=== PATIENT | female | born 1950 | race Caucasian/White ===

== ENCOUNTER 2019-02-02 09:25 | Outpatient (CLI) | payer MEDICARE, SELFPAY ==
--- NOTE | 2019-02-02 | ECHO_ITS ---
Patient Info Name: Hoa Balbuena Age: 69 years : 1950 Gender: Female Ht: 66 in Wt: 272 lbs BSA: 2.46 m2 HR: 86 bpm BP: 127 / 86 mmHg Heart Rhythm: Sinus Rhythm Technical Quality: Fair Exam Date: 02/02/2019 9:55 AM Exam Location: [facility] Pulmonary Patient Status: Outpatient Admit Date: 02/02/2019 Staff Ordering Physician: Arvin Abraham MD Chief Engineer Waterworks: Ellie Garcia RDCS Attending Provider: Arvin Abraham MD Referring Physician: Leigh BROOKS; Exam Type: CA echo doppler color flow Study Info Indications C50.412 - Malignant neoplasm of upper-outer quadrant of left female breast Complete two-dimensional, color flow and Doppler transthoracic echocardiogram is performed. Summary 1. Left ventricular systolic function is normal, estimated at 65-70%. 2. The left ventricular diastolic function is grade I diastolic dysfunction. 3. There is mild aortic valve sclerosis. 4. The mitral valve has normal leaflets. Left Ventricle Left ventricular chamber dimension is normal. Left ventricular systolic function is normal, estimated at 65-70%. The left ventricular diastolic function is grade I diastolic dysfunction. Right Ventricle Right ventricular chamber dimension is normal. Left Atria Left atrial chamber dimension is normal. Right Atria Right atrial chamber dimension is normal. Aortic Valve The aortic valve is trileaflet. There is mild aortic valve sclerosis. Pulmonic Valve The pulmonic valve is not well visualized. Mitral Valve The mitral valve has normal leaflets. Tricuspid Valve The tricuspid valve leaflets are normal. Pericardium/Pleural The pericardium appears normal. Aorta The aortic root size at the sinus of Valsalva is normal. Left Ventricular Outflow Tract Name Value Normal LVOT 2D LVOT Diameter 2.0 cm LVOT Doppler LVOT Peak Gradient 4 mmHg LVOT Mean Gradient 2 mmHg LVOT VTI 18 cm LVOT VTI/AV VTI Ratio 0.7 LVOT Stroke Volume 56 ml Pulmonic Valve Name Value Normal RVOT Doppler RVOT Peak Gradient 3 mmHg PV Doppler PV Peak Gradient 6 mmHg Mitral Valve Name Value Normal MV Doppler MV Decel [place] 189 cm/s2 MV PHT 69 ms MV Area (PHT) 3.2 cm2 4.0-5.0 MV Diastolic Function
== END 2019-02-02 09:26 | disposition home or self-care (01) ==
LOC: ANHCARD 09:29
PROVIDERS: PCP Family Medicine; Visit Provider Internal Medicine Hematology & Oncology
DX: C50.412 Malignant neoplasm of upper-outer quadrant of left female breast (principal); Z17.0 Estrogen receptor positive status [ER+]; I35.8 Other nonrheumatic aortic valve disorders
CPT/HCPCS: 93306

== ENCOUNTER 2019-04-12 13:41 | Inpatient (IN) | payer MEDICARE, SELFPAY ==
--- NOTE | ~2019-04-12 | NM_ITS ---
EXAMINATION: NM lung vent and perfusion DATE: 04/13/2019 13:46 INDICATION: Shortness of breath. TECHNIQUE: The patient breathed 15.1 mCi xenon-133 for ventilation images. 5.5 mCi Tc-99m MAA was adm inistered intravenously for perfusion images. Scintigraphic images of the chest were obtained. COMPARISON: Chest 2 views 04/12/2019 FINDINGS: The single breath ventilation image demonstrates suboptimal hyndzy-[id number]-dkpzy ratio. Ventilation washou t images show retention in right midlung zone. Perfusion images show no moderate-sized or large defe cts. ] IMPRESSION: 1. Low probability for pulmonary embolism. Reviewed, dictated and finalized at location A. UM CLEANER MECHANIC
--- NOTE | ~2019-04-12 | CT_ITS ---
EXAMINATION: CT abdomen pelvis wo con DATE: 04/12/2019 15:15 INDICATION: Diarrhea. TECHNIQUE: Computed tomography (CT) of the abdomen and pelvis was performed without intravenous contr ast. Automated exposure control and iterative reconstruction technique were employed. The dose-length product was 1346.30 mGy-cm. COMPARISON: CT abdomen 10/20/2018 FINDINGS: The visualized portions of the lung bases demonstrate mild atelectasis. No pleural effusion . The heart size is normal. There are coronary artery calcifications. No pericardial effusion. The li lyndon and spleen are normal. There are changes of cholecystectomy. The pancreas and adrenal glands are normal. There is cortical thinning of the kidneys. There are no dilated loops of bowel. The appendix is normal. There are no pathologically enlarged lymph nodes. There is no free intraperitoneal fluid. There is a periumbilical hernia containing fat. There is moderate lumbar spondylosis. There are bridg ing endplate osteophytes at multiple levels in the thoracic spine, consistent with diffuse idiopathic skeletal hyperostosis (DISH). There is moderate right hip osteoarthritis and severe left hip osteoar thritis. IMPRESSION: 1. Periumbilical hernia containing fat. Reviewed, dictated and finalized at location A. PT READER
--- NOTE | ~2019-04-12 | US_ITS ---
EXAMINATION: US venous doppler LE EXAM DATE: 04/13/2019 14:37 INDICATION: Bilateral leg swelling. TECHNIQUE: Multiple grayscale, color flow and Doppler images of the lower extremity deep venous syste ms bilaterally were obtained and reviewed. Comparison is made to prior examination from 11/02/2013. FINDINGS: Right side: The right common femoral, femoral and profunda veins demonstrate normal color flow, respi ratory variation, augmentation and compressibility. Compressibility, color flow confirmed within the right popliteal, posterior tibial, peroneal, and greater saphenous veins. Left side: The left common femoral, femoral and profunda veins demonstrate normal color flow, respira tory variation, augmentation and compressibility. Compressibility, color flow confirmed within the l eft popliteal, posterior tibial, peroneal, and greater saphenous veins. IMPRESSION: 1. No lower extremity deep venous thrombosis bilaterally. Reviewed, dictated and finalized at location B. MAKER
--- NOTE | ~2019-04-12 | XR_ITS ---
EXAMINATION: XR chest 2V DATE: 04/12/2019 15:19 INDICATION: Shortness of breath. Nausea. TECHNIQUE: Frontal and lateral views of the chest were obtained. COMPARISON: Chest single view 02/12/2019, CT abdomen and pelvis 04/12/2019 FINDINGS: The chest demonstrates clear lungs without pneumonia, pleural effusion, or pneumothorax. Th e heart size is normal. There are multiple old healed left rib fractures. There is a right internal j ugular port with tip at superior cavoatrial junction. IMPRESSION: 1. No acute cardiopulmonary disease. Reviewed, dictated and finalized at location A. HETIC SOIL BLOCKS PULPER
[2019-04-12 13:43] VITALS: BP 127/94; PULSE 95; RESP 15; TEMP 36.5; O2SAT 99
--- NOTE | 2019-04-12 13:54 | ECG_ITS ---
Measurements Intervals [place] Rate: 96 P: 23 ME: 167 QRS: -11 QRSD: 113 T: 85 QT: 387 QTc: 489 Interpretive Statements SINUS RHYTHM INTRAVENTRICULAR CONDUCTION DELAY EARLY PRECORDIAL R/S TRANSITION INFERIOR INFARCT, AGE INDETERMINATE ST-T WAVE ABNORMALITY IN ANTEROLAT/LAT LEADS- CONSIDER ISCHEMIA BASELINE ARTIFACT- I, II, III, AVR, AVL, AVF ABNORMAL ECG Electronically Signed On 04-12-2019 14:03:39 REGISTERED PRIVATE DUTY NURSE by Gadiel Marin D.O.
--- NOTE | 2019-04-12 13:57 | ED.NAVMDI ---
HPI - Nausea/Vomiting/Diarrhea General Chief complaint: Nausea/Vomiting/Diarrhea Stated complaint: n/v/d Time Seen by Provider: 04/12/19 13:52 Source: patient and RN notes reviewed Mode of arrival: EMS Limitations: no limitations History of Present Illness HPI Narrative: Pt is a 69 y/o female with a Hx of breast cancer, who presents to the ED via EMS from [facility] with c/o nausea, vomiting, and diarrhea starting yesterday. She notes that she is currently 3-4 weeks into chemotherapy for her breast cancer. Pt states that she has recently had generalized weakness and SOB. She notes that she then began having nausea, vomiting, and diarrhea yesterday. Pt states that she has been unable to keep anything down due to her symptoms. She denies any ABD pain, numbness/tingling, or fever. MD elicited complaint: nausea, vomiting and diarrhea Onset (ago): day(s) (1) Associated nausea: Yes Associated abdominal pain: No Context: other (chemotherapy) Associated symptoms: shortness of breath, weakness (generalized) and other (decreased intake) Related Data Home Medications Medication Instructions Recorded Confirmed celecoxib [Celebrex] 200 mg PO DAILY PRN 04/12/19 04/12/19 diphenoxylate-atropine [Lomotil] 1 tablet PO TID PRN 04/12/19 04/12/19 donepezil 10 mg PO HS 04/12/19 04/12/19 indapamide 1.25 mg PO DAILY 04/12/19 04/12/19 levothyroxine 224 mcg PO DAILY 04/12/19 04/12/19 ondansetron HCl 4 mg PO TID PRN 04/12/19 04/12/19 Allergies Allergy/AdvReac Type Severity Reaction Status Date / Time adhesive tape Allergy Intermediate BLISTERS Verified 03/29/19 15:26 tetracycline Allergy Intermediate NAUSEATED Verified 03/29/19 15:26 codeine Allergy Mild Rash Verified 03/29/19 15:26 amoxicillin Allergy Unknown Rash Verified 03/29/19 15:26 furosemide Allergy Unknown Rash Verified 03/29/19 15:26 Iodinated Contrast Media Allergy Unknown Anaphylaxis Verified 03/29/19 15:26 ioversol Allergy Unknown Rash Verified 03/29/19 15:26 methotrexate Allergy Unknown Rash Verified 03/29/19 15:26 Penicillins Allergy Unknown Rash Verified 03/29/19 15:26 Review of Systems Review of Systems: Narrative: CONSTITUTIONAL: Denies fever, chills, or sweats. Reports generalized weakness and decreased intake. CARDIOVASCULAR: Denies chest pain, palpitations, or edema. RESPIRATORY: Denies cough. Reports dyspnea. GASTROINTESTINAL: Denies abdominal pain. Reports nausea, vomiting, and diarrhea. NEUROLOGIC: Denies headache or numbness/tingling. 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 Shingles Stage 3 chronic kidney disease Type 2 diabetes mellitus with hyperglycemia Unspecified systolic (congestive) heart failure UTI (urinary tract infection) Surgical History Surgical History History of cataract surgery rt lens removed History of hysterectomy History of kidney removal History of renal stent rt kidney Hx of appendectomy Hx of cardiac catheterization Hx of cholecystectomy Hx of cystoscopy Hx of lithotripsy Hx of tubal ligation Social History Social History Smoking status: Never smoker Second hand tobacco smoke exposure: No Alcohol intake: never Substance use: never Gender identity (if verbalized by the patient): Female Spiritual care concerns: No Agr
[2019-04-12 14:08] LABS: Basophils Absolute Auto 0.1 K/mm3 (0.0-0.1); Basophils Percent Auto 0.7 % (0.2-1.2); Eosinophils Percent Auto 0.2 % (0-4.4); Hematocrit 35.4 % (37.0-47.0); Hemoglobin 11.9 g/dL (12.0-15.0); Immature Granulocyte Absolute 0.39 K/mm3 (0.00-0.031); Immature Granulocyte Percent A 3.2 % (0-0.5); Lymphocytes Absolute Auto 1.15 K/mm3 (0.9-3.2); Lymphocytes Percent Auto 9.4 % (18.3-44.2); Mean Corpuscular HGB Conc 33.6 g/dl (32-36); Mean Corpuscular Hemoglobin 29.1 pg (26-34); Mean Corpuscular Volume 86.6 fl (80-100); Monocytes Percent Auto 7.9 % (2.6-8.5); Neutrophils Absolute Auto 9.6 K/mm3 (1.3-6.7); Neutrophils Percent Auto 78.6 % (45.5-73.1); Platelet Count Result 288 k/mm3 (150-375); Red Blood Count 4.09 M/mm3 (4.2-5.4); Red Cell Distribution Width 16.8 % (11.5-14.5); White Blood Count 12.2 K/mm3 (4.5-10.0)
[2019-04-12] MEDS: SODIUM CHLORIDE 0.9% IV 1,000 ML 999 ML IV CONT ×2 (14:14→15:52)
[2019-04-12 14:32] LABS: Alanine Aminotransferase 20 U/L (4-35); Alkaline Phosphatase 104 U/L (38-126); Aspartate Amino Transferase 20 U/L (14-36); Bilirubin,Total 0.3 mg/dL (0.2-1.3); Blood Urea Nitrogen 90 mg/dL (7-17); Calcium 8.7 mg/dL (8.4-10.2); Carbon Dioxide 12 mmol/L (22-30); Chloride 95 mmol/L (98-107); Estimated Glomerular Filt Rate 7; Glucose 133 mg/dL (65-105); Lipase 184 U/L (23-300); Potassium 2.3 mmol/L (3.4-5.0); Sodium 132 mmol/L (137-145)
[2019-04-12 14:47] LABS: Add Urine Microscopic? YES; Amorphous Sediment Urine Moderate; Appearance Urine Turbid (Clear); Bacteria Urine 3+ /hpf; Bilirubin Urine Negative (Negative); Blood Urine 3+ (Negative); Color Urine Yellow (Yellow); Glucose Urine UA 1+ mg/dL (Negative); Hyaline Casts Urine 20-29 /lpf; Ketones Urine Negative (Negative); Leukocyte Esterase Ur Trace LEU/UL (Negative); Mucus Urine Few /lpf; Nitrate Urine Negative (Negative); Protein Urine 3+ mg/dL (Negative); RBC Urine >75 /hpf (0-2); Specific Grav Ur 1.017 (1.001-1.035); Urobilinogen Urine Negative mg/dL (<2.0); WBC Urine >75 /hpf
[2019-04-12 14:59] LABS: INR 1.1; Prothrombin Time 13.8 Seconds (11.1-14.7)
[2019-04-12 15:00] LABS: Partial Thromboplastin Time 24.4 SECONDS (22.3-36.8)
[2019-04-12 15:06] LABS: Troponin I 0.015 ng/mL (0.000-0.034)
[2019-04-12 15:24] LABS: NT Pro B Type Natriuretic Pept 157 PG/ML (5-100)
[2019-04-12 15:27] LABS: Magnesium 1.3 mg/dL (1.6-2.3)
[2019-04-12 15:39] VITALS: BP 78/52; PULSE 89; RESP 13; O2SAT 98
[2019-04-12] MEDS: METOCLOPRAMIDE HCL INJ 10 MG/2 ML VIAL IV PUSH (15:54)
--- NOTE | 2019-04-12 16:08 | PC.NURSE ---
edp made aware of pts pressure, gave vorb to infuse ns 1000 mls/hr (as opposed to 30mls/hr)
[2019-04-12 16:47] LABS: Lactic Acid Reflex 1.7 mmol/L (0.7-2.1)
[2019-04-12 17:02] VITALS: BP 93/60; PULSE 85; RESP 17; O2SAT 100
[2019-04-12] MEDS: NOREPINEPHRINE 8 MG/D5W 250 ML 8 MG/250 ML BAG 9.4 MG IV CONT ×2 (17:30→22:10)
[2019-04-12 18:43] VITALS: BP 94/53; PULSE 76; RESP 15; O2SAT 100
--- NOTE | 2019-04-12 18:51 | ADMGEN ---
This patient, Hoa Balbuena, was admitted to Intensive Care Unit-9 at 1821. Patient/family oriented to hospital policies and general routines including ID bracelet, bed and alarms, visiting hours, pain management, procedures, bathroom and other care routines, personal items, smoking policy, room service/diet, and visiting hours. Valuables list has been completed. Information on how to activate the Rapid Response Team has been discussed. Patient/Family are encouraged to report perceived risks to care and to ask questions if they do not understand what they are told or what they should do.
[2019-04-12 18:53] VITALS: BMI 38.0
--- NOTE | 2019-04-12 19:00 | PM.IMHP ---
H&P: HPI History of Present Illness Chief complaint: Nausea, vomiting, diarrhea, generalized weakness. Narrative: Hoa Balbuena is a 69 year old female currently being treated for breast cancer with history of obstructive sleep apnea on CPAP, COPD, DVT on long-term anticoagulation, rheumatoid arthritis, diabetes, hypothyroidism, bullous pemphigoid, type 2 diabetes mellitus, and several other comorbidities who presented to the emergency department earlier this afternoon via EMS from [facility] for evaluation of nausea, vomiting, diarrhea, and generalized weakness. She was diagnosed with left-sided breast cancer several months ago and has been undergoing neoadjuvant chemotherapy prior to planned complete mastectomy per Dr. Abraham. Her last chemotherapy treatment was a couple of weeks ago, and she is due for another treatment in the coming week. She typically feels ?punky? for a couple of days after chemotherapy. Unfortunately, she has suffered from nausea, vomiting, and diarrhea for the last several days, and she notes that similar symptoms are going around the facility. Her appetite has been poor due to the extreme nausea. She has also had chills but denies fever and sweats. She also has been having shortness of breath with minimal exertion, and rare cough. She has not noticed a change in urine output and denies dysuria, urgency, and frequency. Since admission to the hospital, she has not had any further episodes of vomiting or diarrhea. No headache, neck ache, sinus congestion, rhinorrhea, otalgia, or odynophagia. She denies chest pain, pleuritic pain, and palpitations. No lightheadedness or dizziness. Review of Systems Review of Systems: All systems reviewed & are unremarkable except as noted in HPI and below [facility] Past Medical History Medical History (Updated 04/12/19 @ 21:37 by Radha Ruvalcaba PA-C) Anemia, chronic disease Anxiety Asthma Atrial fibrillation with controlled ventricular response Bronchitis Bullous pemphigoid Cancer of left breast Colon polyps COPD with emphysema Diastolic congestive heart failure Echocardiogram in December 2018 showed normal left ventricular size, moderate concentric left ventricular hypertrophy with impaired diastolic relaxation grade 1 and ejection fraction of 65%. 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 Social History Social History (Updated 04/12/19 @ 21:00 by Radha Ruvalcaba PA-C) Social History: The patient is never and has no children. 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 She lives at [facility], and has been there for a couple of months since she started chemotherapy. Her aestqa-xb-duf, Sofia, is her surrogate decision maker. She wishes to be a full code. Spiritual care concerns: No Agree to blood products: Yes Meds Home Medications and Allergies Home Medications Medication Instructions Recorded Confirmed Type atorvastatin 10 mg tablet 10 mg PO DAILY #30 tablet 03/29/19 04/12/19 Rx nitroglycerin 0.4 mg sublingual 0.4 mg SUBLINGUAL Q5M PRN #25
[2019-04-12 20:00] VITALS: BP 94/62; PULSE 86; RESP 16; TEMP 37.1; O2SAT 100
[2019-04-12] MEDS: ENOXAPARIN 100 MG/ML SYRINGE SUB-Q (20:51)
[2019-04-12 21:46] LABS: Lactic Acid 0.9 mmol/L (0.7-2.1)
[2019-04-12 21:47] LABS: Blood Urea Nitrogen 85 mg/dL (7-17); Calcium 8.1 mg/dL (8.4-10.2); Carbon Dioxide 10 mmol/L (22-30); Chloride 97 mmol/L (98-107); Creatine Kinase 93 U/L (30-135); Estimated CRCL calculation 12 ml/min; Estimated Glomerular Filt Rate 9; Glucose 156 mg/dL (65-105); Magnesium 1.1 mg/dL (1.6-2.3); Phosphorus 4.2 mg/dL (2.5-4.5); Potassium 2.5 mmol/L (3.4-5.0); Sodium 129 mmol/L (137-145)
[2019-04-12 21:53] VITALS: BP 94/62; PULSE 80; RESP 16; O2SAT 100
[2019-04-12] MEDS: MAGNESIUM SULF 1 GM/D5W 100 ML 1 GM/100 ML BAG IVPB (22:29)
[2019-04-12] MEDS: SODIUM BICARBONATE 8.4% 150 MEQ in DEXTROSE 5% 1,000 ML 950 ML 100 MEQ IV CONT (22:33)
[2019-04-12 23:01] LABS: Hemoglobin A1C 7.4 % (<5.7)
[2019-04-12] MEDS: MAGNESIUM SULF 2 GM/WATER 50ML 2 GM/50 ML BAG IVPB (23:39)
[2019-04-13] VITALS (14 sets, daily range): BP systolic 86–103; BP diastolic 47–67; PULSE 65–100; RESP 14–21; TEMP 36.2–36.9; O2SAT 99–100
[2019-04-13 03:02] LABS: Blood Urea Nitrogen 82 mg/dL (7-17); Calcium 8.1 mg/dL (8.4-10.2); Carbon Dioxide 13 mmol/L (22-30); Chloride 96 mmol/L (98-107); Estimated CRCL calculation 15 ml/min; Estimated Glomerular Filt Rate 11; Glucose 171 mg/dL (65-105); Magnesium 2.3 mg/dL (1.6-2.3); Phosphorus 4.1 mg/dL (2.5-4.5); Potassium 2.6 mmol/L (3.4-5.0); Sodium 129 mmol/L (137-145)
[2019-04-13 03:35] LABS: Free T4 Free Thyroxine Reflex 1.35 ng/dL (0.78-2.19)
[2019-04-13] MEDS: POTASSIUM CHLORIDE 20 MEQ PACKET (FOR LIQUID) 40 MEQ PO (03:48)
[2019-04-13] MEDS: KCL 20 MEQ/SW 100 ML 100 ML 50 MEQ IVPB ×2 (03:48→16:18)
[2019-04-13 04:20] LABS: Total Triiodothyronine (T3) 0.73 NG/ML (0.97-1.69)
[2019-04-13 06:42] LABS: Basophils Absolute Auto 0.1 K/mm3 (0.0-0.1); Basophils Percent Auto 0.5 % (0.2-1.2); Eosinophils Percent Auto 0.1 % (0-4.4); Hematocrit 31.6 % (37.0-47.0); Hemoglobin 11.1 g/dL (12.0-15.0); Immature Granulocyte Absolute 0.89 K/mm3 (0.00-0.031); Lymphocytes Absolute Auto 1.23 K/mm3 (0.9-3.2); Lymphocytes Percent Auto 5.5 % (18.3-44.2); Mean Corpuscular HGB Conc 35.1 g/dl (32-36); Mean Corpuscular Hemoglobin 29.5 pg (26-34); Mean Platelet Volume 10.8 fl (7.4-10.4); Monocytes Absolute Auto 1.3 K/mm3 (0.1-0.6); Neutrophils Absolute Auto 18.6 K/mm3 (1.3-6.7); Neutrophils Percent Auto 83.9 % (45.5-73.1); Nucleated Red Blood Cells Perc 0.1 % (0.0-0.2); Platelet Count Result 279 k/mm3 (150-375); Red Blood Count 3.76 M/mm3 (4.2-5.4); Red Cell Distribution Width 16.5 % (11.5-14.5); White Blood Count 22.2 K/mm3 (4.5-10.0)
[2019-04-13 07:03] LABS: Alanine Aminotransferase 16 U/L (4-35); Albumin Level 3.3 g/dL (3.5-5.1); Alkaline Phosphatase 104 U/L (38-126); Aspartate Amino Transferase 18 U/L (14-36); Bilirubin,Total 0.1 mg/dL (0.2-1.3); Blood Urea Nitrogen 78 mg/dL (7-17); Calcium 8.2 mg/dL (8.4-10.2); Carbon Dioxide 15 mmol/L (22-30); Chloride 98 mmol/L (98-107); Estimated CRCL calculation 18 ml/min; Estimated Glomerular Filt Rate 14; Glucose 184 mg/dL (65-105); Magnesium 2.1 mg/dL (1.6-2.3); Phosphorus 3.4 mg/dL (2.5-4.5); Potassium 3.2 mmol/L (3.4-5.0); Sodium 129 mmol/L (137-145)
[2019-04-13] MEDS: ENOXAPARIN 100 MG/ML SYRINGE SUB-Q ×2 (08:07→21:02)
[2019-04-13] MEDS: EUCERIN CREAM 120 GM JAR 1 APPLIC TOPICAL (08:07)
[2019-04-13] MEDS: SODIUM BICARBONATE 8.4% 150 MEQ in DEXTROSE 5% 1,000 ML 950 ML 100 MEQ IV CONT ×2 (10:06→23:11)
[2019-04-13 12:04] LABS: Glucose Point of Care 152 (65-105)
[2019-04-13 12:04] LABS: Glucose Point of Care 202 (65-105)
[2019-04-13] MEDS: INSULIN ASPART (*BKC) 100 UNITS/ML SUB-Q (12:13)
--- NOTE | 2019-04-13 12:45 | WPDCNINT ---
Assessment and Plan Assessment and plan (1) Septic shock: Code(s): A41.9 - Sepsis, unspecified organism; R65.21 - Severe sepsis with septic shock Status: Acute Assessment and Plan: patient presented with hypotension, nausea, vomiting, diarrhea, dehydration post chemotherapy. source likely urine - was given adequate amount of IV fluids despite which she remained hypotensive, central line inserted and started on Levophed, maintain mean arterial pressures > 65 mmHg - blood and urine cultures have been obtained and pending - continue ceftriaxone and vancomycin (2) Urinary tract infection: Code(s): N39.0 - Urinary tract infection, site not specified Status: Acute Assessment and Plan: UA with evidence of UTI, antibiotics as above, cultures pending (3) Acute kidney injury: Code(s): N17.9 - Acute kidney failure, unspecified Status: Acute Assessment and Plan: patient with stage 3 chronic kidney disease, likely related to septic shock, UTI, hypovolemia/dehydration - low urine output, creatinine improved - will replace potassium - continue to monitor renal function, electrolytes and urine output (4) Acute dehydration: Code(s): E86.0 - Dehydration Status: Acute Assessment and Plan: patient adequately fluid-resuscitated, patient also with major drink adequate fluid - creatinine improving and so is the BUN. - Continue to monitor (5) Obstructive sleep apnea on CPAP: Code(s): G47.33 - Obstructive sleep apnea (adult) (pediatric); Z99.89 - Dependence on other enabling machines and devices Status: Acute Assessment and Plan: patient with CPAP at home, will continue here in hospital (6) Type 2 diabetes mellitus: Code(s): E11.9 - Type 2 diabetes mellitus without complications Status: Acute Assessment and Plan: continue Accu-Cheks sliding scale insulin (7) residential current use of anticoagulant: Code(s): Z79.01 - computer terminal operator (current) use of anticoagulants Status: Acute Assessment and Plan: 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 - currently on therapeutic dose of Lovenox - patient to have a V/Q scan to rule out PE - will obtain lower extremity Dopplers to rule out DVT (8) Cancer of left breast: Code(s): C50.912 - Malignant neoplasm of unspecified site of left female breast Status: Acute Assessment and Plan: patient follows Dr. Leigh for breast cancer, last chemotherapy 10 days back (9) DVT prophylaxis: Code(s): Z29.9 - Encounter for prophylactic measures, unspecified Status: Acute Assessment and Plan: patient currently on full-dose Lovenox Additional Plan discussed with patient and her sister and lower and updated them with her condition and plan of care. I answered all questions. Code status: Full code Critical care time spent: 44 minutes Due to a high probability of clinically significant, life threatening deterioration, the patient required my highest level of preparedness to intervene emergently and I personally spent this critical care time directly and personally managing the patient. This critical care time included obtaining a history; examining the patient; pulse oximetry; ordering and review of studies; arranging urgent treatment with development of a management plan; evaluation of patient's response to treatment; frequent reassessment; and discussions with other providers. It was exclusive of separately billable procedures and treating other patients and teaching time. Please see Assessment and Plan section and the rest of the note for further information on patient assessment and treatment [employer] Drafting Teacher Consult Note Consult date: 04/13/19 Time Seen: 06:54 Reason for consult: septic shock, hypovolemia, nausea, vomiting, diarrhea, UTI HPI: Hoa Balbuena is a 69 year old female with significant past medical history of a
--- NOTE | 2019-04-13 15:01 | P.PNIM_ITS ---
Progress Note: A&P Assessment and Plan (1) Septic shock: Code(s): A41.9 - Sepsis, unspecified organism; R65.21 - Severe sepsis with septic shock Status: Acute Assessment and Plan: * Present on admission and supported by hypotension, leukocytosis, and acute kidney injury. * Secondary to urinary tract infection. * Lactic acid levels within normal limits. * Blood cultures have been obtained and are pending. * Despite adequate IV fluid rehydration, she has remained hypotensive. * Levophed has been started and will be titrated to maintain a MAP of 65 or greater. (2) Acute kidney injury: Code(s): N17.9 - Acute kidney failure, unspecified Status: Acute Assessment and Plan: * Likely multifactorial in etiology to include poor oral intake, diuretic use, vomiting, diarrhea, hypoperfusion from hypotension, and probable ATN from sepsis. * Aleman catheter will be placed for strict monitoring of I/O. * For now, we will continue with IV fluid rehydration and avoid nephrotoxic agents. * Should her creatinine not improve with the above treatment, a further workup can be pursued. (3) Urinary tract infection: Code(s): N39.0 - Urinary tract infection, site not specified Status: Acute Assessment and Plan: * She was started on ceftriaxone in the emergency department. * Adjust antibiotics as needed pending urine culture. (4) jail current use of anticoagulant: Code(s): Z79.01 - jail (current) use of anticoagulants Status: Acute Assessment and Plan: * She is on Xarelto at home, but due to her acute kidney injury where having to hold this medication. * Will treat with Lovenox as decided by the emergency department physician in conjunction with the rural mail carrier per documentation. (5) Cancer of left breast: Code(s): C50.912 - Malignant neoplasm of unspecified site of left female breast Status: Acute Assessment and Plan: * Currently being treated with neoadjuvant chemotherapy per Dr. Abraham. * Thus chemo infusion was apparently within the last several weeks. (6) Obstructive sleep apnea on CPAP: Code(s): G47.33 - Obstructive sleep apnea (adult) (pediatric); Z99.89 - Dependence on other enabling machines and devices Status: Acute Assessment and Plan: * Patient states compliance with CPAP. * CPAP ordered to be worn with naps and at nighttime. (7) Type 2 diabetes mellitus: Code(s): E11.9 - Type 2 diabetes mellitus without complications Status: Acute Assessment and Plan: * I do not see that she is on any medication for this at this time. * Check hemoglobin A1c, initiate sliding scale insulin, Accu-Cheks, and hypoglycemic protocol. Subjective Date/time seen: 04/13/19 15:01 Exam Narrative: Exam Narrative: General: A well-developed, acutely ill-appearing elderly female appearing a bit older than her stated age, sitting up in bed in no acute respiratory distress. HEENT: Normocephalic, atraumatic. PERRL, EOMI. Sclerae anicteric. Oral mucosa is tacky. Neck: Supple. Respiratory: Lungs are clear to auscultation. Cardiovascular: Regular rate and rhythm with S1-S2. Occasional ventricular ectopy. Gastrointestinal: Abdomen is soft, nontender, and nondistended with positive bowel sounds. Skin: Warm and dry. Alopecia totalis. No rash or lesions on limited exam. Extremities: No cyanosis or clubbing. Trace juliet ankle edema. Radial and pedal pulses
--- NOTE | 2019-04-13 15:01 | PM.IMPN ---
Progress Note: A&P Assessment and Plan (1) Septic shock: Code(s): A41.9 - Sepsis, unspecified organism; R65.21 - Severe sepsis with septic shock Status: Acute Assessment and Plan: Present on admission and supported by hypotension, leukocytosis, and acute kidney injury. Secondary to urinary tract infection. Lactic acid levels within normal limits. Blood cultures have been obtained and are pending. Despite adequate IV fluid rehydration, she has remained hypotensive. Levophed has been started and will be titrated to maintain a MAP of 65 or greater. (2) Acute kidney injury: Code(s): N17.9 - Acute kidney failure, unspecified Status: Acute Assessment and Plan: Likely multifactorial in etiology to include poor oral intake, diuretic use, vomiting, diarrhea, hypoperfusion from hypotension, and probable ATN from sepsis. Aleman catheter will be placed for strict monitoring of I/O. For now, we will continue with IV fluid rehydration and avoid nephrotoxic agents. Should her creatinine not improve with the above treatment, a further workup can be pursued. (3) Urinary tract infection: Code(s): N39.0 - Urinary tract infection, site not specified Status: Acute Assessment and Plan: She was started on ceftriaxone in the emergency department. Adjust antibiotics as needed pending urine culture. 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 Will treat with Lovenox as decided by the emergency department physician in conjunction with the mortar worker per documentation. (5) Cancer of left breast: Code(s): C50.912 - Malignant neoplasm of unspecified site of left female breast Status: Acute Assessment and Plan: Currently being treated with neoadjuvant chemotherapy per Dr. Abraham. Thus chemo infusion was apparently within the last several weeks. (6) Obstructive sleep apnea on CPAP: Code(s): G47.33 - Obstructive sleep apnea (adult) (pediatric); Z99.89 - Dependence on other enabling machines and devices Status: Acute Assessment and Plan: Patient states compliance with CPAP. CPAP ordered to be worn with naps and at nighttime. (7) Type 2 diabetes mellitus: Code(s): E11.9 - Type 2 diabetes mellitus without complications Status: Acute Assessment and Plan: I do not see that she is on any medication for this at this time. Check hemoglobin A1c, initiate sliding scale insulin, Accu-Cheks, and hypoglycemic protocol. Subjective Date/time seen: 04/13/19 15:01 Exam Narrative: Exam Narrative: General: A well-developed, acutely ill-appearing elderly female appearing a bit older than her stated age, sitting up in bed in no acute respiratory distress. HEENT: Normocephalic, atraumatic. PERRL, EOMI. Sclerae anicteric. Oral mucosa is tacky. Neck: Supple. Respiratory: Lungs are clear to auscultation. Cardiovascular: Regular rate and rhythm with S1-S2. Occasional ventricular ectopy. Gastrointestinal: Abdomen is soft, nontender, and nondistended with positive bowel sounds. Skin: Warm and dry. Alopecia totalis. No rash or lesions on limited exam. Extremities: No cyanosis or clubbing. Trace juliet ankle edema. Radial and pedal pulses intact. Neurological: Alert. Cranial nerves 2-12 are grossly intact. No gross focal deficits to casual conversation. Psychiatric: Pleasant and cooperative with normal mood and affect. Judgment and insight intact. Objective Data Vital Signs Vital Signs: Vital Signs - 24 hr 04/12/19 15:39 04/12/19 17:02 04/12/19 18:43 Temperature Pulse Rate 89 85 76 Respiratory Rate 13 17 15 Blood Pressure 78/52 L 93/60 L 94/53 L Pulse Oximetry 98 100 100 04/12
--- NOTE | 2019-04-13 15:09 | P.PNIM_ITS ---
Progress Note: A&P Assessment and Plan (1) Septic shock: Code(s): A41.9 - Sepsis, unspecified organism; R65.21 - Severe sepsis with septic shock Status: Acute Assessment and Plan: * Present on admission and supported by hypotension, leukocytosis, and acute kidney injury. * Secondary to urinary tract infection. * Lactic acid levels within normal limits. * Blood cultures have been obtained and are pending.. Levophed continued and will be titrated to maintain a MAP of 65 or greater. (2) Acute kidney injury: Code(s): N17.9 - Acute kidney failure, unspecified Status: Acute Assessment and Plan: * Likely multifactorial in etiology to include poor oral intake, diuretic use, vomiting, diarrhea, hypoperfusion from hypotension, and probable ATN from sepsis. * Aleman catheter placed for strict monitoring of I/O. * For now, we will continue with IV fluid rehydration and avoid nephrotoxic agents. * Creatinine already down to 3.3 from 5.6 (3) Urinary tract infection: Code(s): N39.0 - Urinary tract infection, site not specified Status: Acute Assessment and Plan: * She was started on ceftriaxone in the emergency department. * Adjust antibiotics as needed pending urine culture. 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 * Will treat with Lovenox as decided by the emergency department physician in conjunction with the councilperson per documentation. (5) Cancer of left breast: Code(s): C50.912 - Malignant neoplasm of unspecified site of left female breast Status: Acute Assessment and Plan: * Currently being treated with neoadjuvant chemotherapy per Dr. Abraham. * Thus chemo infusion was apparently within the last several weeks. (6) Obstructive sleep apnea on CPAP: Code(s): G47.33 - Obstructive sleep apnea (adult) (pediatric); Z99.89 - Dependence on other enabling machines and devices Status: Acute Assessment and Plan: * Patient states compliance with CPAP. * CPAP ordered to be worn with naps and at nighttime. (7) Type 2 diabetes mellitus: Code(s): E11.9 - Type 2 diabetes mellitus without complications Status: Acute Assessment and Plan: * I do not see that she is on any medication for this at this time. * hemoglobin A1c 7.4, initiated sliding scale insulin, Accu-Cheks, and hypoglycemic protocol. Subjective Date/time seen: 04/13/19 15:09 Interval history: Date of visit 04/13 . 69-year-old type 2 diabetic with breast cancer undergoing chemotherapy admitted with the nausea vomiting diarrhea, sepsis, urinary tract infection, and acute renal failure. She feels slightly better this a.m. after IV fluids and pressors with antibiotics Exam Narrative: Exam Narrative: Blood pressure 104/60 pulse is 76 and regular Pupils equal reactive to light sclera anicteric Lungs clear CV no murmurs or gallops heard Abdomen is soft nontender no masses Extremities without edema distal pulse 2 + Neuro alert pleasant cooperative no focal deficits Alopecia totalis Objective Data Vital Signs Vital Signs: Vital Signs - 24 hr 04/12/19 15:39 04/12/19 17:02 04/12/19 18:43 Temperature Pulse Rate
--- NOTE | 2019-04-13 15:09 | PM.IMPN ---
Progress Note: A&P Assessment and Plan (1) Septic shock: Code(s): A41.9 - Sepsis, unspecified organism; R65.21 - Severe sepsis with septic shock Status: Acute Assessment and Plan: Present on admission and supported by hypotension, leukocytosis, and acute kidney injury. Secondary to urinary tract infection. Lactic acid levels within normal limits. Blood cultures have been obtained and are pending.. Levophed continued and will be titrated to maintain a MAP of 65 or greater. (2) Acute kidney injury: Code(s): N17.9 - Acute kidney failure, unspecified Status: Acute Assessment and Plan: Likely multifactorial in etiology to include poor oral intake, diuretic use, vomiting, diarrhea, hypoperfusion from hypotension, and probable ATN from sepsis. Aleman catheter placed for strict monitoring of I/O. For now, we will continue with IV fluid rehydration and avoid nephrotoxic agents. Creatinine already down to 3.3 from 5.6 (3) Urinary tract infection: Code(s): N39.0 - Urinary tract infection, site not specified Status: Acute Assessment and Plan: She was started on ceftriaxone in the emergency department. Adjust antibiotics as needed pending urine culture. 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 Will treat with Lovenox as decided by the emergency department physician in conjunction with the clinical veterinarian per documentation. (5) Cancer of left breast: Code(s): C50.912 - Malignant neoplasm of unspecified site of left female breast Status: Acute Assessment and Plan: Currently being treated with neoadjuvant chemotherapy per Dr. Abraham. Thus chemo infusion was apparently within the last several weeks. (6) Obstructive sleep apnea on CPAP: Code(s): G47.33 - Obstructive sleep apnea (adult) (pediatric); Z99.89 - Dependence on other enabling machines and devices Status: Acute Assessment and Plan: Patient states compliance with CPAP. CPAP ordered to be worn with naps and at nighttime. (7) Type 2 diabetes mellitus: Code(s): E11.9 - Type 2 diabetes mellitus without complications Status: Acute Assessment and Plan: I do not see that she is on any medication for this at this time. hemoglobin A1c 7.4, initiated sliding scale insulin, Accu-Cheks, and hypoglycemic protocol. Subjective Date/time seen: 04/13/19 15:09 Interval history: Date of visit 04/13 . 69-year-old type 2 diabetic with breast cancer undergoing chemotherapy admitted with the nausea vomiting diarrhea, sepsis, urinary tract infection, and acute renal failure. She feels slightly better this a.m. after IV fluids and pressors with antibiotics Exam Narrative: Exam Narrative: Blood pressure 104/60 pulse is 76 and regular Pupils equal reactive to light sclera anicteric Lungs clear CV no murmurs or gallops heard Abdomen is soft nontender no masses Extremities without edema distal pulse 2 + Neuro alert pleasant cooperative no focal deficits Alopecia totalis Objective Data Vital Signs Vital Signs: Vital Signs - 24 hr 04/12/19 15:39 04/12/19 17:02 04/12/19 18:43 Temperature Pulse Rate 89 85 76 Respiratory Rate 13 17 15 Blood Pressure 78/52 L 93/60 L 94/53 L Pulse Oximetry 98 100 100 04/12/19 20:00 04/12/19 21:53 04/13/19 00:00 Temperature 37.1 C 36.9 C Pulse Rate 86 80 87 Respiratory Rate 16 16 16 Blood Pressure 94/62 L 94/62 L 103/58 L Pulse Oximetry 100 100 99 04/13/19 01:34 04/13/19 04:00 04/13/19 06:00 Temperature 36.8 C Pulse Rate 81 92 91 Respiratory Rate 16 16 16 Blood Pressure 101/64 94/60 L 86/56 L Pulse Oximetry 100 100 100 04/13/19 08:00 04/13/19 10:00 04/13/19 12:00 Temp
[2019-04-13] MEDS: ONDANSETRON INJ 4 MG/2 ML VIAL IV PUSH ×2 (19:03→23:42)
[2019-04-13 19:20] LABS: Glucose Point of Care 161 (65-105)
[2019-04-13] MEDS: NOREPINEPHRINE 8 MG/D5W 250 ML 8 MG/250 ML BAG 13.1 MG IV CONT (19:30)
[2019-04-13 21:01] LABS: Glucose Point of Care 156 (65-105)
[2019-04-14] VITALS (15 sets, daily range): BP systolic 76–113; BP diastolic 47–95; PULSE 62–97; RESP 15–23; TEMP 36.4–37; O2SAT 97–100
[2019-04-14 06:26] LABS: Basophils Absolute Auto 0.1 K/mm3 (0.0-0.1); Basophils Percent Auto 0.2 % (0.2-1.2); Eosinophils Percent Auto 0.2 % (0-4.4); Hematocrit 29.1 % (37.0-47.0); Hemoglobin 10.2 g/dL (12.0-15.0); Immature Granulocyte Absolute 1.08 K/mm3 (0.00-0.031); Immature Granulocyte Percent A 4.4 % (0-0.5); Lymphocytes Absolute Auto 1.44 K/mm3 (0.9-3.2); Lymphocytes Percent Auto 5.8 % (18.3-44.2); Mean Corpuscular HGB Conc 35.1 g/dl (32-36); Mean Corpuscular Hemoglobin 29.2 pg (26-34); Mean Corpuscular Volume 83.4 fl (80-100); Mean Platelet Volume 10.8 fl (7.4-10.4); Monocytes Absolute Auto 1.2 K/mm3 (0.1-0.6); Monocytes Percent Auto 4.7 % (2.6-8.5); Neutrophils Percent Auto 84.7 % (45.5-73.1); Nucleated Red Blood Cells Perc 0.1 % (0.0-0.2); Platelet Count Result 252 k/mm3 (150-375); Red Blood Count 3.49 M/mm3 (4.2-5.4); Red Cell Distribution Width 16.6 % (11.5-14.5); White Blood Count 24.8 K/mm3 (4.5-10.0)
[2019-04-14 06:32] LABS: Lactic Acid 0.9 mmol/L (0.7-2.1)
[2019-04-14] MEDS: ONDANSETRON INJ 4 MG/2 ML VIAL IV PUSH ×2 (07:45→20:14)
[2019-04-14 08:13] LABS: Alanine Aminotransferase 13 U/L (4-35); Alkaline Phosphatase 112 U/L (38-126); Aspartate Amino Transferase 20 U/L (14-36); Bilirubin,Total 0.2 mg/dL (0.2-1.3); Blood Urea Nitrogen 56 mg/dL (7-17); Calcium 8.1 mg/dL (8.4-10.2); Carbon Dioxide 26 mmol/L (22-30); Chloride 91 mmol/L (98-107); Estimated CRCL calculation 36 ml/min; Estimated Glomerular Filt Rate 32; Glucose 169 mg/dL (65-105); Lipase 147 U/L (23-300); Magnesium 1.6 mg/dL (1.6-2.3); Phosphorus 2.4 mg/dL (2.5-4.5); Potassium 2.3 mmol/L (3.4-5.0); Sodium 132 mmol/L (137-145)
--- NOTE | 2019-04-14 08:38 | WPDINTPN ---
Progress Note: A&P Assessment and Plan (1) Septic shock: Code(s): A41.9 - Sepsis, unspecified organism; R65.21 - Severe sepsis with septic shock Status: Acute Assessment and Plan: patient presented with hypotension, nausea, vomiting, diarrhea, dehydration post chemotherapy. E coli UTI - patient on Levophed, maintain mean arterial pressures > 65 mmHg - blood cultures negative x2 - urine cultures growing E coli, colon susceptible - continue ceftriaxone and vancomycin - patient with worsening leukocytosis, upon further questioning, patient states that she may have gotten Neupogen after chemotherapy which was at the beginning of March (2) Urinary tract infection: Code(s): N39.0 - Urinary tract infection, site not specified Status: Acute Assessment and Plan: E coli UTI ( pansensitive) - continue antibiotics as (3) Acute kidney injury: Code(s): N17.9 - Acute kidney failure, unspecified Status: Acute Assessment and Plan: patient with stage 3 chronic kidney disease, likely related to septic shock, UTI, hypovolemia/dehydration - urine output has improved, creatinine improving - will replace potassium - will start bicarb infusion and place patient on normal saline maintenance fluids - continue to monitor renal function, electrolytes and urine output (4) Acute dehydration: Code(s): E86.0 - Dehydration Status: Acute Assessment and Plan: RESOLVED: patient adequately fluid-resuscitated, patient also with adequate p.o. intake - creatinine improving and so is the BUN. - Continue to monitor (5) Obstructive sleep apnea on CPAP: Code(s): G47.33 - Obstructive sleep apnea (adult) (pediatric); Z99.89 - Dependence on other enabling machines and devices Status: Acute Assessment and Plan: patient with CPAP at home, will continue here in hospital (6) Type 2 diabetes mellitus: Qualifiers: Diabetes mellitus fdc insulin use: without fdc use Diabetes mellitus complication status: with other specified complication Qualified Code(s): E11.69 - Type 2 diabetes mellitus with other specified complication Code(s): E11.9 - Type 2 diabetes mellitus without complications Status: Acute Assessment and Plan: continue Accu-Cheks sliding scale insulin (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: Code(s): Z79.01 - senior care (current) use of anticoagulants Status: Acute Assessment and Plan: 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 - V/Q scan 04/13/2019 with low probability for pulmonary embolism - lower extremity venous Dopplers 04/13/2019 was negative for DVT bilaterally - will discontinue therapeutic Lovenox and restart Xarelto now that her kidney functions have improved (8) Cancer of left breast: Qualifiers: Breast location: unspecified site of breast Estrogen receptor status: unspecified Patient sex: female Qualified Code(s): C50.912 - Malignant neoplasm of unspecified site of left female breast Code(s): C50.912 - Malignant neoplasm of unspecified site of left female breast Status: Acute Assessment and Plan: patient follows Dr. Abraham for breast cancer, last chemotherapy beginning of March 2019 (9) DVT prophylaxis: Code(s): Z29.9 - Encounter for prophylactic measures, unspecified Status: Acute Assessment and Plan: restart Xarelto Additional Plan discussed with patient and updated the pt with her condition and plan of care. I answered all questions. Code status: Full code Critical care time spent: 32 minutes Due to a high probability of clinically significant, life threatening deterioration, the patient required my highest level of preparedness to intervene emergently and I personally spent this critical care time directly and personally managing the patient. This critical care time included obtaining a hi
[2019-04-14] MEDS: MAGNESIUM SULF 2 GM/WATER 50ML 2 GM/50 ML BAG IVPB (09:23)
[2019-04-14] MEDS: SODIUM CHLORIDE 0.9% IV 1,000 ML 75 ML IV CONT (09:24)
[2019-04-14] MEDS: EUCERIN CREAM 120 GM JAR 1 APPLIC TOPICAL (09:25)
[2019-04-14] MEDS: POTASSIUM CHLORIDE 20 MEQ TABLET 40 MEQ PO (09:27)
[2019-04-14] MEDS: HEPARIN SOD FLUSH 500 UNITS/5 ML SYRINGE IV PUSH (09:27)
[2019-04-14] MEDS: RIVAROXABAN 20 MG TABLET PO (09:49)
--- NOTE | 2019-04-14 13:07 | P.PNIM_ITS ---
Progress Note: A&P Assessment and Plan (1) Septic shock: Code(s): A41.9 - Sepsis, unspecified organism; R65.21 - Severe sepsis with septic shock Status: Acute Assessment and Plan: * Present on admission and supported by hypotension, leukocytosis, and acute kidney injury. * Secondary to urinary tract infection. * Lactic acid levels within normal limits. * Blood cultures negative but urine with E coli Levophed continued and will be titrated to maintain a MAP of 65 or greater. (2) Acute kidney injury: Code(s): N17.9 - Acute kidney failure, unspecified Status: Acute Assessment and Plan: * Likely multifactorial in etiology to include poor oral intake, diuretic use, vomiting, diarrhea, hypoperfusion from hypotension, and probable ATN from sepsis. * Aleman catheter placed for strict monitoring of I/O. * For now, we will continue with IV fluid rehydration and avoid nephrotoxic agents. * Creatinine down to 1.6 from 5.6 (3) Urinary tract infection: Code(s): N39.0 - Urinary tract infection, site not specified Status: Acute Assessment and Plan: * She was started on ceftriaxone in the emergency department. 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 * Will treat with Lovenox as decided by the emergency department physician in conjunction with the consolidation accountant per documentation. * with creatinine down will be able to transition back to xarelto 1-2 days (5) Cancer of left breast: Qualifiers: Breast location: unspecified site of breast Estrogen receptor status: unspecified Patient sex: female Qualified Code(s): C50.912 - Malignant neoplasm of unspecified site of left female breast Code(s): C50.912 - Malignant neoplasm of unspecified site of left female breast Status: Acute Assessment and Plan: * Currently being treated with neoadjuvant chemotherapy per Dr. Abraham. * Thus chemo infusion was apparently within the last several weeks. (6) Obstructive sleep apnea on CPAP: Code(s): G47.33 - Obstructive sleep apnea (adult) (pediatric); Z99.89 - Dependence on other enabling machines and devices Status: Acute Assessment and Plan: * Patient states compliance with CPAP. * CPAP ordered to be worn with naps and at nighttime. (7) Type 2 diabetes mellitus: Qualifiers: Diabetes mellitus watcher automat long goods insulin use: without watcher automat long goods use Diabetes mellitus complication status: with other specified complication Qualified Code(s): E11.69 - Type 2 diabetes mellitus with other specified complication Code(s): E11.9 - Type 2 diabetes mellitus without complications Status: Acute Assessment and Plan: * I do not see that she is on any home medication for this at this time. * hemoglobin A1c 7.4, initiated sliding scale insulin, Accu-Cheks, and hypoglycemic protocol. Subjective Date/time seen: 04/14/19 13:07 Interval history: Date of visit 04/14. 69-year-old type 2 diabetic with breast cancer undergoing chemotherapy admitted with the nausea vomiting diarrhea, sepsis, urinary tract infection, and acute renal failure. She feels slightly better this a.m. after IV fluids and pressors with antibiotics. sitting up in chair Exam
--- NOTE | 2019-04-14 13:07 | PM.IMPN ---
Progress Note: A&P Assessment and Plan (1) Septic shock: Code(s): A41.9 - Sepsis, unspecified organism; R65.21 - Severe sepsis with septic shock Status: Acute Assessment and Plan: Present on admission and supported by hypotension, leukocytosis, and acute kidney injury. Secondary to urinary tract infection. Lactic acid levels within normal limits. Blood cultures negative but urine with E coli Levophed continued and will be titrated to maintain a MAP of 65 or greater. (2) Acute kidney injury: Code(s): N17.9 - Acute kidney failure, unspecified Status: Acute Assessment and Plan: Likely multifactorial in etiology to include poor oral intake, diuretic use, vomiting, diarrhea, hypoperfusion from hypotension, and probable ATN from sepsis. Aleman catheter placed for strict monitoring of I/O. For now, we will continue with IV fluid rehydration and avoid nephrotoxic agents. Creatinine down to 1.6 from 5.6 (3) Urinary tract infection: Code(s): N39.0 - Urinary tract infection, site not specified Status: Acute Assessment and Plan: She was started on ceftriaxone in the emergency department. 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 Will treat with Lovenox as decided by the emergency department physician in conjunction with the shell sorter per documentation. with creatinine down will be able to transition back to xarelto 1-2 days (5) Cancer of left breast: Qualifiers: Breast location: unspecified site of breast Estrogen receptor status: unspecified Patient sex: female Qualified Code(s): C50.912 - Malignant neoplasm of unspecified site of left female breast Code(s): C50.912 - Malignant neoplasm of unspecified site of left female breast Status: Acute Assessment and Plan: Currently being treated with neoadjuvant chemotherapy per Dr. Abraham. Thus chemo infusion was apparently within the last several weeks. (6) Obstructive sleep apnea on CPAP: Code(s): G47.33 - Obstructive sleep apnea (adult) (pediatric); Z99.89 - Dependence on other enabling machines and devices Status: Acute Assessment and Plan: Patient states compliance with CPAP. CPAP ordered to be worn with naps and at nighttime. (7) Type 2 diabetes mellitus: Qualifiers: Diabetes mellitus skilled nursing insulin use: without longwall headgate operator use Diabetes mellitus complication status: with other specified complication Qualified Code(s): E11.69 - Type 2 diabetes mellitus with other specified complication Code(s): E11.9 - Type 2 diabetes mellitus without complications Status: Acute Assessment and Plan: I do not see that she is on any home medication for this at this time. hemoglobin A1c 7.4, initiated sliding scale insulin, Accu-Cheks, and hypoglycemic protocol. Subjective Date/time seen: 04/14/19 13:07 Interval history: Date of visit 04/14. 69-year-old type 2 diabetic with breast cancer undergoing chemotherapy admitted with the nausea vomiting diarrhea, sepsis, urinary tract infection, and acute renal failure. She feels slightly better this a.m. after IV fluids and pressors with antibiotics. sitting up in chair Exam Narrative: Exam Narrative: Blood pressure 110/60 pulse is 76 and regular still on pressors Pupils equal reactive to light sclera anicteric Lungs clear CV no murmurs or gallops heard Abdomen is soft nontender no masses Extremities without edema distal pulse 2 + Neuro alert pleasant cooperative no focal deficits Alopecia totalis Objective Data Vital Signs Vital Signs: Vital Signs - 24 hr 04/13/19 14:00 04/13/19 16:00 04/13/19 18:0
[2019-04-14 18:10] LABS: Magnesium 1.6 mg/dL (1.6-2.3)
[2019-04-14 18:12] LABS: Blood Urea Nitrogen 43 mg/dL (7-17); Calcium 8.3 mg/dL (8.4-10.2); Carbon Dioxide 27 mmol/L (22-30); Chloride 94 mmol/L (98-107); Estimated CRCL calculation 41 ml/min; Estimated Glomerular Filt Rate 37; Glucose 158 mg/dL (65-105); Sodium 132 mmol/L (137-145)
[2019-04-15] VITALS (15 sets, daily range): BP systolic 80–126; BP diastolic 43–67; PULSE 66–96; RESP 14–20; TEMP 36.4–36.7; O2SAT 90–100
[2019-04-15] MEDS: ONDANSETRON INJ 4 MG/2 ML VIAL IV PUSH ×2 (00:19→06:13)
[2019-04-15] MEDS: SODIUM CHLORIDE 0.9% IV 1,000 ML 75 ML IV CONT ×2 (00:19→14:17)
[2019-04-15 01:07] LABS: Glucose Point of Care 151 (65-105)
[2019-04-15] MEDS: NOREPINEPHRINE 8 MG/D5W 250 ML 8 MG/250 ML BAG 7.5 MG IV CONT (06:14)
[2019-04-15 06:37] LABS: Basophils Absolute Auto 0.1 K/mm3 (0.0-0.1); Basophils Percent Auto 0.3 % (0.2-1.2); Eosinophils Percent Auto 0.1 % (0-4.4); Hematocrit 27.8 % (37.0-47.0); Hemoglobin 9.5 g/dL (12.0-15.0); Immature Granulocyte Absolute 0.51 K/mm3 (0.00-0.031); Immature Granulocyte Percent A 3.1 % (0-0.5); Lymphocytes Absolute Auto 1.08 K/mm3 (0.9-3.2); Lymphocytes Percent Auto 6.6 % (18.3-44.2); Mean Corpuscular HGB Conc 34.2 g/dl (32-36); Mean Corpuscular Hemoglobin 29.9 pg (26-34); Mean Corpuscular Volume 87.4 fl (80-100); Mean Platelet Volume 10.3 fl (7.4-10.4); Monocytes Absolute Auto 0.8 K/mm3 (0.1-0.6); Monocytes Percent Auto 4.8 % (2.6-8.5); Neutrophils Absolute Auto 13.9 K/mm3 (1.3-6.7); Neutrophils Percent Auto 85.1 % (45.5-73.1); Platelet Count Result 210 k/mm3 (150-375); Red Blood Count 3.18 M/mm3 (4.2-5.4); White Blood Count 16.3 K/mm3 (4.5-10.0)
[2019-04-15 06:51] LABS: Blood Urea Nitrogen 31 mg/dL (7-17); Carbon Dioxide 29 mmol/L (22-30); Chloride 97 mmol/L (98-107); Estimated CRCL calculation 48 ml/min; Estimated Glomerular Filt Rate 44; Glucose 125 mg/dL (65-105); Magnesium 1.5 mg/dL (1.6-2.3); Potassium 2.8 mmol/L (3.4-5.0); Sodium 132 mmol/L (137-145)
[2019-04-15] MEDS: MAGNESIUM SULF 2 GM/WATER 50ML 2 GM/50 ML BAG IVPB (08:35)
[2019-04-15] MEDS: EUCERIN CREAM 120 GM JAR 1 APPLIC TOPICAL (08:35)
[2019-04-15] MEDS: RIVAROXABAN 20 MG TABLET PO (08:36)
--- NOTE | 2019-04-15 12:12 | WPDINTPN ---
Progress Note: A&P Assessment and Plan (1) Septic shock: Code(s): A41.9 - Sepsis, unspecified organism; R65.21 - Severe sepsis with septic shock Status: Acute Assessment and Plan: patient presented with hypotension, nausea, vomiting, diarrhea, dehydration post chemotherapy. E coli UTI - remains on Levophed, maintain mean arterial pressures > 65 mmHg - blood cultures negative x2 - urine cultures growing E coli, colon susceptible - continue ceftriaxone and vancomycin - leukocytosis improving (2) Urinary tract infection: Qualifiers: Urinary tract infection type: site unspecified Hematuria presence: without hematuria Qualified Code(s): N39.0 - Urinary tract infection, site not specified Code(s): N39.0 - Urinary tract infection, site not specified Status: Acute Assessment and Plan: E coli UTI ( pansensitive) - continue antibiotics as above (3) Acute kidney injury: Code(s): N17.9 - Acute kidney failure, unspecified Status: Acute Assessment and Plan: patient with stage 3 chronic kidney disease, likely related to septic shock, UTI, hypovolemia/dehydration - urine output has improved, creatinine improving - patient with diarrhea, likely losing magnesium and potassium. Will aggressively replace K and Mg - continue maintenance IV fluids - continue to monitor renal function, electrolytes and urine output (4) Acute dehydration: Code(s): E86.0 - Dehydration Status: Acute Assessment and Plan: RESOLVED: patient adequately fluid-resuscitated, patient also with adequate p.o. intake - creatinine improving and so is the BUN. continue IV fluid - Continue to monitor (5) Obstructive sleep apnea on CPAP: Code(s): G47.33 - Obstructive sleep apnea (adult) (pediatric); Z99.89 - Dependence on other enabling machines and devices Status: Acute Assessment and Plan: patient with CPAP at home, will continue here in hospital (6) Type 2 diabetes mellitus: Qualifiers: Diabetes mellitus group home insulin use: without group home use Diabetes mellitus complication status: with other specified complication Qualified Code(s): E11.69 - Type 2 diabetes mellitus with other specified complication Code(s): E11.9 - Type 2 diabetes mellitus without complications Status: Acute Assessment and Plan: continue Accu-Cheks sliding scale insulin (7) detention current use of anticoagulant: Code(s): Z79.01 - detention (current) use of anticoagulants Status: Acute Assessment and Plan: 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 - V/Q scan 04/13/2019 with low probability for pulmonary embolism - lower extremity venous Dopplers 04/13/2019 was negative for DVT bilaterally - will discontinue therapeutic Lovenox and restart Xarelto now that her kidney functions have improved (8) Cancer of left breast: Qualifiers: Breast location: unspecified site of breast Estrogen receptor status: unspecified Patient sex: female Qualified Code(s): C50.912 - Malignant neoplasm of unspecified site of left female breast Code(s): C50.912 - Malignant neoplasm of unspecified site of left female breast Status: Acute Assessment and Plan: patient follows Dr. Abraham for breast cancer, last chemotherapy beginning of March 2019 (9) DVT prophylaxis: Code(s): Z29.9 - Encounter for prophylactic measures, unspecified Status: Acute Assessment and Plan: restart Xarelto Additional Plan discussed with patient and updated the pt with her condition and plan of care. I answered all questions. Code status: Full code Critical care time spent: 32 minutes Due to a high probability of clinically significant, life threatening deterioration, the patient required my highest level of preparedness to intervene emergently and I personally spent this critical care time [facility]
--- NOTE | 2019-04-15 16:07 | P.PNIM_ITS ---
Progress Note: A&P Assessment and Plan (1) Septic shock: Code(s): A41.9 - Sepsis, unspecified organism; R65.21 - Severe sepsis with septic shock Status: Acute Assessment and Plan: * Present on admission and supported by hypotension, leukocytosis, and acute kidney injury. * Secondary to urinary tract infection. * Lactic acid levels within normal limits. * Blood cultures negative but urine with E coli Levophed continued and will be titrated probable off today (2) Acute kidney injury: Code(s): N17.9 - Acute kidney failure, unspecified Status: Acute Assessment and Plan: * Likely multifactorial in etiology to include poor oral intake, diuretic use, vomiting, diarrhea, hypoperfusion from hypotension, and probable ATN from sepsis. * Aleman catheter placed for strict monitoring of I/O. * For now, we will continue with IV fluid rehydration and avoid nephrotoxic agents. * Creatinine down to 1.2 from 5.6 (3) Urinary tract infection: Qualifiers: Urinary tract infection type: site unspecified Hematuria presence: without hematuria Qualified Code(s): N39.0 - Urinary tract infection, site not specified Code(s): N39.0 - Urinary tract infection, site not specified Status: Acute Assessment and Plan: * She was started on ceftriaxone in the emergency department. * Urine growing Ecoli sensitive to ceftriaxone (4) FDC current use of anticoagulant: Code(s): Z79.01 - FDC (current) use of anticoagulants Status: Acute Assessment and Plan: * She is on Xarelto at home, but due to her acute kidney injury where having to hold this medication. * Treated with Lovenox as decided by the emergency department physician in conjunction with the chocolate temperer per documentation. * with creatinine down was able to transition back to xarelto today (5) Cancer of left breast: Qualifiers: Breast location: unspecified site of breast Estrogen receptor status: unspecified Patient sex: female Qualified Code(s): C50.912 - Malignant neoplasm of unspecified site of left female breast Code(s): C50.912 - Malignant neoplasm of unspecified site of left female breast Status: Acute Assessment and Plan: * Currently being treated with neoadjuvant chemotherapy per Dr. Abraham. * Thus chemo infusion was apparently within the last several weeks. (6) Obstructive sleep apnea on CPAP: Code(s): G47.33 - Obstructive sleep apnea (adult) (pediatric); Z99.89 - Dependence on other enabling machines and devices Status: Acute Assessment and Plan: * Patient states compliance with CPAP. * CPAP ordered to be worn with naps and at nighttime. (7) Type 2 diabetes mellitus: Qualifiers: Diabetes mellitus [facility] insulin use: without [facility] use Diabetes mellitus complication status: with other specified complication Qualified Code(s): E11.69 - Type 2 diabetes mellitus with other specified complication Code(s): E11.9 - Type 2 diabetes mellitus without complications Status: Acute Assessment and Plan: * I do not see that she is on any home medication for this at this time. * hemoglobin A1c 7.4, initiated sliding scale insulin, Accu-Cheks, and hypoglycemic protocol. Subjective Date/time seen: 04/15/19 16:07 Interval history: Date of visit 04/15. 69-year-old type 2 diabetic with breast cancer undergoing chemotherapy admitted with the nausea vomiting diarrhea, sepsis, urinary tr
--- NOTE | 2019-04-15 16:07 | PM.IMPN ---
Progress Note: A&P Assessment and Plan (1) Septic shock: Code(s): A41.9 - Sepsis, unspecified organism; R65.21 - Severe sepsis with septic shock Status: Acute Assessment and Plan: Present on admission and supported by hypotension, leukocytosis, and acute kidney injury. Secondary to urinary tract infection. Lactic acid levels within normal limits. Blood cultures negative but urine with E coli Levophed continued and will be titrated probable off today (2) Acute kidney injury: Code(s): N17.9 - Acute kidney failure, unspecified Status: Acute Assessment and Plan: Likely multifactorial in etiology to include poor oral intake, diuretic use, vomiting, diarrhea, hypoperfusion from hypotension, and probable ATN from sepsis. Aleman catheter placed for strict monitoring of I/O. For now, we will continue with IV fluid rehydration and avoid nephrotoxic agents. Creatinine down to 1.2 from 5.6 (3) Urinary tract infection: Qualifiers: Urinary tract infection type: site unspecified Hematuria presence: without hematuria Qualified Code(s): N39.0 - Urinary tract infection, site not specified Code(s): N39.0 - Urinary tract infection, site not specified Status: Acute Assessment and Plan: She was started on ceftriaxone in the emergency department. Urine growing Ecoli sensitive to ceftriaxone (4) manager terminal current use of anticoagulant: Code(s): Z79.01 - manager terminal (current) use of anticoagulants Status: Acute Assessment and Plan: She is on Xarelto at home, but due to her acute kidney injury where having to hold this medication. Treated with Lovenox as decided by the emergency department physician in conjunction with the rural route mail carrier per documentation. with creatinine down was able to transition back to xarelto today (5) Cancer of left breast: Qualifiers: Breast location: unspecified site of breast Estrogen receptor status: unspecified Patient sex: female Qualified Code(s): C50.912 - Malignant neoplasm of unspecified site of left female breast Code(s): C50.912 - Malignant neoplasm of unspecified site of left female breast Status: Acute Assessment and Plan: Currently being treated with neoadjuvant chemotherapy per Dr. Abraham. Thus chemo infusion was apparently within the last several weeks. (6) Obstructive sleep apnea on CPAP: Code(s): G47.33 - Obstructive sleep apnea (adult) (pediatric); Z99.89 - Dependence on other enabling machines and devices Status: Acute Assessment and Plan: Patient states compliance with CPAP. CPAP ordered to be worn with naps and at nighttime. (7) Type 2 diabetes mellitus: Qualifiers: Diabetes mellitus halfway insulin use: without manager terminal use Diabetes mellitus complication status: with other specified complication Qualified Code(s): E11.69 - Type 2 diabetes mellitus with other specified complication Code(s): E11.9 - Type 2 diabetes mellitus without complications Status: Acute Assessment and Plan: I do not see that she is on any home medication for this at this time. hemoglobin A1c 7.4, initiated sliding scale insulin, Accu-Cheks, and hypoglycemic protocol. Subjective Date/time seen: 04/15/19 16:07 Interval history: Date of visit 04/15. 69-year-old type 2 diabetic with breast cancer undergoing chemotherapy admitted with the nausea vomiting diarrhea, sepsis, urinary tract infection, and acute renal failure. She feels slightly better each a.m. with IV fluids and pressors with antibiotics. no cough or sob Exam Narrative: Exam Narrative: Blood pressure 90/50 pulse is 82 and regular still on pressors, levophed at 2 john only Pupils equal reactive to light sclera anicteric Lungs clear CV no murmurs or gallops heard Abdomen is soft nontender no masses Extremities without edema distal pulse 2 + Neuro
[2019-04-15] MEDS: SODIUM CHLORIDE 0.9% IV 500 ML IV CONT (19:50)
[2019-04-15 21:22] LABS: Glucose Point of Care 102 (65-105)
[2019-04-16] VITALS (15 sets, daily range): BP systolic 88–120; BP diastolic 45–95; PULSE 59–99; RESP 13–23; TEMP 35.9–37.3; O2SAT 95–100
[2019-04-16] MEDS: SODIUM CHLORIDE 0.9% IV 1,000 ML 75 ML IV CONT ×2 (05:00→19:53)
[2019-04-16] MEDS: NOREPINEPHRINE 8 MG/D5W 250 ML 8 MG/250 ML BAG 3.8 MG IV CONT (06:52)
[2019-04-16 06:57] LABS: Basophils Percent Auto 0.2 % (0.2-1.2); Eosinophils Percent Auto 0.2 % (0-4.4); Hematocrit 25.9 % (37.0-47.0); Hemoglobin 8.5 g/dL (12.0-15.0); Immature Granulocyte Absolute 0.27 K/mm3 (0.00-0.031); Immature Granulocyte Percent A 2.4 % (0-0.5); Lymphocytes Absolute Auto 0.96 K/mm3 (0.9-3.2); Lymphocytes Percent Auto 8.5 % (18.3-44.2); Mean Corpuscular HGB Conc 32.8 g/dl (32-36); Mean Corpuscular Hemoglobin 29.3 pg (26-34); Mean Corpuscular Volume 89.3 fl (80-100); Mean Platelet Volume 10.3 fl (7.4-10.4); Monocytes Absolute Auto 0.7 K/mm3 (0.1-0.6); Monocytes Percent Auto 5.9 % (2.6-8.5); Neutrophils Absolute Auto 9.3 K/mm3 (1.3-6.7); Neutrophils Percent Auto 82.8 % (45.5-73.1); Platelet Count Result 178 k/mm3 (150-375); Red Cell Distribution Width 17.4 % (11.5-14.5); White Blood Count 11.3 K/mm3 (4.5-10.0)
[2019-04-16 07:13] LABS: Blood Urea Nitrogen 16 mg/dL (7-17); Calcium 7.9 mg/dL (8.4-10.2); Carbon Dioxide 25 mmol/L (22-30); Chloride 98 mmol/L (98-107); Estimated CRCL calculation 63 ml/min; Estimated Glomerular Filt Rate > 60; Glucose 120 mg/dL (65-105); Magnesium 1.5 mg/dL (1.6-2.3); Phosphorus 1.4 mg/dL (2.5-4.5); Sodium 132 mmol/L (137-145)
[2019-04-16 07:14] LABS: Glucose Point of Care 132 (65-105)
[2019-04-16] MEDS: RIVAROXABAN 20 MG TABLET PO (09:39)
[2019-04-16] MEDS: MIDODRINE HCL 10 MG TABLET PO ×3 (09:39→18:35)
[2019-04-16] MEDS: EUCERIN CREAM 120 GM JAR 1 APPLIC TOPICAL (09:39)
[2019-04-16] MEDS: MAGNESIUM SULF 2 GM/WATER 50ML 2 GM/50 ML BAG IVPB (09:41)
--- NOTE | 2019-04-16 11:28 | WPDINTPN ---
Progress Note: A&P Assessment and Plan (1) Septic shock: Code(s): A41.9 - Sepsis, unspecified organism; R65.21 - Severe sepsis with septic shock Status: Acute Assessment and Plan: patient presented with hypotension, nausea, vomiting, diarrhea, dehydration post chemotherapy. E coli UTI - remains on Levophed, maintain mean arterial pressures > 65 mmHg, will add midodrine - blood cultures negative x2 - urine cultures growing E coli, colon susceptible - continue ceftriaxone, will DC vancomycin - leukocytosis improving (2) Urinary tract infection: Qualifiers: Urinary tract infection type: site unspecified Hematuria presence: without hematuria Qualified Code(s): N39.0 - Urinary tract infection, site not specified Code(s): N39.0 - Urinary tract infection, site not specified Status: Acute Assessment and Plan: E coli UTI ( pansensitive) - continue antibiotics as above (3) Acute kidney injury: Code(s): N17.9 - Acute kidney failure, unspecified Status: Acute Assessment and Plan: patient with stage 3 chronic kidney disease, likely related to septic shock, UTI, hypovolemia/dehydration - urine output has improved, creatinine has normalized - will replace potassium and magnesium, diarrhea has improved - continue maintenance IV fluids - continue to monitor renal function, electrolytes and urine output (4) Acute dehydration: Code(s): E86.0 - Dehydration Status: Acute Assessment and Plan: RESOLVED: patient adequately fluid-resuscitated, patient also with adequate p.o. intake - renal function is normal, continue IV fluids - Continue to monitor (5) Obstructive sleep apnea on CPAP: Code(s): G47.33 - Obstructive sleep apnea (adult) (pediatric); Z99.89 - Dependence on other enabling machines and devices Status: Acute Assessment and Plan: patient with CPAP at home, will continue here in hospital (6) Type 2 diabetes mellitus: Qualifiers: Diabetes mellitus intermodal truck driver insulin use: without custodial use Diabetes mellitus complication status: with other specified complication Qualified Code(s): E11.69 - Type 2 diabetes mellitus with other specified complication Code(s): E11.9 - Type 2 diabetes mellitus without complications Status: Acute Assessment and Plan: continue Accu-Cheks sliding scale insulin (7) residential current use of anticoagulant: Code(s): Z79.01 - bed bug exterminator (current) use of anticoagulants Status: Acute Assessment and Plan: 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 Abraham for breast cancer, last chemotherapy beginning of March 2019 (9) DVT prophylaxis: Code(s): Z29.9 - Encounter for prophylactic measures, unspecified Status: Acute Assessment and Plan: restart Xarelto Additional Plan discussed with patient and updated the pt with her condition and plan of care. I answered all questions. Code status: Full code Critical care time spent:33 minutes Due to a high probability of clinically significant, life threatening deterioration, the patient required my highest level of preparedness to intervene emergently and I personally spent this critical care time directly and personally managing the patient. This critical care time included obtaining a history; examin
[2019-04-16 12:32] LABS: Glucose Point of Care 121 (65-105)
[2019-04-16] MEDS: POTASSIUM PHOS,M-BASIC-D-BASIC 20 MMOL in SODIUM CHLORIDE 0.9% IV 250 ML 62.5 MMOL IVPB (13:36)
--- NOTE | 2019-04-16 16:41 | P.PNIM_ITS ---
Progress Note: A&P Assessment and Plan (1) Septic shock: Code(s): A41.9 - Sepsis, unspecified organism; R65.21 - Severe sepsis with septic shock Status: Acute Assessment and Plan: * Present on admission and supported by hypotension, leukocytosis, and acute kidney injury. * Secondary to urinary tract infection. * Lactic acid levels within normal limits. * Blood cultures negative but urine with E coli Levophed continued and will be titrated probable off today with possible trial of midodrine per automatic buffing wheel former (2) Acute kidney injury: Code(s): N17.9 - Acute kidney failure, unspecified Status: Acute Assessment and Plan: * Likely multifactorial in etiology to include poor oral intake, diuretic use, vomiting, diarrhea, hypoperfusion from hypotension, and probable ATN from sepsis. * Aleman catheter placed for strict monitoring of I/O. * For now, we will continue with IV fluid rehydration and avoid nephrotoxic agents. * Creatinine down to 0.9 from 5.6 (3) Urinary tract infection: Qualifiers: Urinary tract infection type: site unspecified Hematuria presence: without hematuria Qualified Code(s): N39.0 - Urinary tract infection, site not specified Code(s): N39.0 - Urinary tract infection, site not specified Status: Acute Assessment and Plan: * She was started on ceftriaxone in the emergency department. * Urine growing Ecoli sensitive to ceftriaxone, D # 5 (4) group home current use of anticoagulant: Code(s): Z79.01 - termite treater (current) use of anticoagulants Status: Acute Assessment and Plan: * She is on Xarelto at home, but due to her acute kidney injury initially held this medication. * Treated with Lovenox as decided by the emergency department physician in conjunction with the automatic buffing wheel former per documentation. * with creatinine down was able to transition back to xarelto 04/15 (5) Cancer of left breast: Qualifiers: Breast location: unspecified site of breast Estrogen receptor status: unspecified Patient sex: female Qualified Code(s): C50.912 - Malignant neoplasm of unspecified site of left female breast Code(s): C50.912 - Malignant neoplasm of unspecified site of left female breast Status: Acute Assessment and Plan: * Currently being treated with neoadjuvant chemotherapy per Dr. Abraham. * Thus chemo infusion was apparently within the last several weeks. (6) Obstructive sleep apnea on CPAP: Code(s): G47.33 - Obstructive sleep apnea (adult) (pediatric); Z99.89 - Dependence on other enabling machines and devices Status: Acute Assessment and Plan: * Patient states compliance with CPAP. * CPAP ordered to be worn with naps and at nighttime. (7) Type 2 diabetes mellitus: Qualifiers: Diabetes mellitus termite helper insulin use: without nursing home use Diabetes mellitus complication status: with other specified complication Qualified Code(s): E11.69 - Type 2 diabetes mellitus with other specified complication Code(s): E11.9 - Type 2 diabetes mellitus without complications Status: Acute Assessment and Plan: * I do not see that she is on any home medication for this at this time. * hemoglobin A1c 7.4, initiated sliding scale insulin, Accu-Cheks, and hypoglycemic protocol. Subjective Date/time seen: 04/16/19 16:41 Interval history: Date of visit 04/16. 69-year-old type 2 diabetic with breast cancer undergoing chemotherapy admitted with
--- NOTE | 2019-04-16 16:41 | PM.IMPN ---
Progress Note: A&P Assessment and Plan (1) Septic shock: Code(s): A41.9 - Sepsis, unspecified organism; R65.21 - Severe sepsis with septic shock Status: Acute Assessment and Plan: Present on admission and supported by hypotension, leukocytosis, and acute kidney injury. Secondary to urinary tract infection. Lactic acid levels within normal limits. Blood cultures negative but urine with E coli Levophed continued and will be titrated probable off today with possible trial of midodrine per catalogue librarian (2) Acute kidney injury: Code(s): N17.9 - Acute kidney failure, unspecified Status: Acute Assessment and Plan: Likely multifactorial in etiology to include poor oral intake, diuretic use, vomiting, diarrhea, hypoperfusion from hypotension, and probable ATN from sepsis. Aleman catheter placed for strict monitoring of I/O. For now, we will continue with IV fluid rehydration and avoid nephrotoxic agents. Creatinine down to 0.9 from 5.6 (3) Urinary tract infection: Qualifiers: Urinary tract infection type: site unspecified Hematuria presence: without hematuria Qualified Code(s): N39.0 - Urinary tract infection, site not specified Code(s): N39.0 - Urinary tract infection, site not specified Status: Acute Assessment and Plan: She was started on ceftriaxone in the emergency department. Urine growing Ecoli sensitive to ceftriaxone, D # 5 (4) residential current use of anticoagulant: Code(s): Z79.01 - residential (current) use of anticoagulants Status: Acute Assessment and Plan: She is on Xarelto at home, but due to her acute kidney injury initially held this medication. Treated with Lovenox as decided by the emergency department physician in conjunction with the catalogue librarian per documentation. with creatinine down was able to transition back to xarelto 04/15 (5) Cancer of left breast: Qualifiers: Breast location: unspecified site of breast Estrogen receptor status: unspecified Patient sex: female Qualified Code(s): C50.912 - Malignant neoplasm of unspecified site of left female breast Code(s): C50.912 - Malignant neoplasm of unspecified site of left female breast Status: Acute Assessment and Plan: Currently being treated with neoadjuvant chemotherapy per Dr. Abraham. Thus chemo infusion was apparently within the last several weeks. (6) Obstructive sleep apnea on CPAP: Code(s): G47.33 - Obstructive sleep apnea (adult) (pediatric); Z99.89 - Dependence on other enabling machines and devices Status: Acute Assessment and Plan: Patient states compliance with CPAP. CPAP ordered to be worn with naps and at nighttime. (7) Type 2 diabetes mellitus: Qualifiers: Diabetes mellitus detention insulin use: without detention use Diabetes mellitus complication status: with other specified complication Qualified Code(s): E11.69 - Type 2 diabetes mellitus with other specified complication Code(s): E11.9 - Type 2 diabetes mellitus without complications Status: Acute Assessment and Plan: I do not see that she is on any home medication for this at this time. hemoglobin A1c 7.4, initiated sliding scale insulin, Accu-Cheks, and hypoglycemic protocol. Subjective Date/time seen: 04/16/19 16:41 Interval history: Date of visit 04/16. 69-year-old type 2 diabetic with breast cancer undergoing chemotherapy admitted with the nausea vomiting diarrhea, sepsis, urinary tract infection, and acute renal failure. She feels slightly better each a.m. with IV fluids and pressors and antibiotics. no cough or sob, apetite better and diarrhea subsided Exam Narrative: Exam Narrative: Blood pressure 98/56 pulse is 86 and regular still on pressors, levophed at 2 john only, afebrile Pupils equal reactive to light sclera anicteric Lungs clear CV no murmurs or weems
[2019-04-16 17:29] LABS: Glucose Point of Care 126 (65-105)
[2019-04-16] MEDS: MUPIROCIN 2% OINT 22 GM TUBE 1 APPLIC EACH NARE (19:57)
--- NOTE | 2019-04-16 21:38 | PC.NURSE ---
Patient able to ambulate 1 lap around the icu. non skid socks, gait belt and walker were utilized in this for patient safety.
[2019-04-17] VITALS (8 sets, daily range): BP systolic 92–133; BP diastolic 52–93; PULSE 61–99; RESP 18–99; TEMP 36.6; O2SAT 15–99
[2019-04-17] MEDS: LORAZEPAM 0.5 MG TABLET PO (02:16)
[2019-04-17 04:38] LABS: Basophils Percent Auto 0.1 % (0.2-1.2); Eosinophils Percent Auto 0.1 % (0-4.4); Hematocrit 24.5 % (37.0-47.0); Hemoglobin 8.1 g/dL (12.0-15.0); Immature Granulocyte Absolute 0.13 K/mm3 (0.00-0.031); Immature Granulocyte Percent A 1.5 % (0-0.5); Lymphocytes Absolute Auto 1.12 K/mm3 (0.9-3.2); Lymphocytes Percent Auto 12.8 % (18.3-44.2); Mean Corpuscular HGB Conc 33.1 g/dl (32-36); Mean Corpuscular Hemoglobin 29.7 pg (26-34); Mean Corpuscular Volume 89.7 fl (80-100); Mean Platelet Volume 9.9 fl (7.4-10.4); Monocytes Absolute Auto 0.7 K/mm3 (0.1-0.6); Monocytes Percent Auto 7.4 % (2.6-8.5); Neutrophils Absolute Auto 6.8 K/mm3 (1.3-6.7); Neutrophils Percent Auto 78.1 % (45.5-73.1); Platelet Count Result 159 k/mm3 (150-375); Red Blood Count 2.73 M/mm3 (4.2-5.4); White Blood Count 8.7 K/mm3 (4.5-10.0)
[2019-04-17 05:08] LABS: Blood Urea Nitrogen 9 mg/dL (7-17); Calcium 7.6 mg/dL (8.4-10.2); Carbon Dioxide 26 mmol/L (22-30); Chloride 102 mmol/L (98-107); Estimated CRCL calculation 71 ml/min; Estimated Glomerular Filt Rate > 60; Glucose 108 mg/dL (65-105); Magnesium 1.5 mg/dL (1.6-2.3); Sodium 134 mmol/L (137-145)
[2019-04-17] MEDS: POTASSIUM CHLORIDE 20 MEQ TABLET 40 MEQ PO (06:46)
[2019-04-17] MEDS: MAGNESIUM SULF 2 GM/WATER 50ML 2 GM/50 ML BAG IVPB (09:46)
[2019-04-17] MEDS: MUPIROCIN 2% OINT 22 GM TUBE 1 APPLIC EACH NARE ×2 (10:49→19:58)
[2019-04-17] MEDS: POTASSIUM/PHOSPHORUS/SODIUM 1.5 GM PACKET 1 PACKET PO (10:49)
[2019-04-17] MEDS: MIDODRINE HCL 10 MG TABLET PO ×3 (10:49→17:48)
[2019-04-17] MEDS: RIVAROXABAN 20 MG TABLET PO (10:49)
--- NOTE | 2019-04-17 11:56 | P.PNIM_ITS ---
Progress Note: A&P Assessment and Plan (1) Urinary tract infection: Qualifiers: Urinary tract infection type: site unspecified Hematuria presence: without hematuria Qualified Code(s): N39.0 - Urinary tract infection, site not specified Code(s): N39.0 - Urinary tract infection, site not specified Status: Acute Assessment and Plan: * She was started on ceftriaxone in the emergency department. * Urine growing Ecoli sensitive to ceftriaxone, D # 6 of 7 (2) Septic shock: Code(s): A41.9 - Sepsis, unspecified organism; R65.21 - Severe sepsis with septic shock Status: Acute Assessment and Plan: * Present on admission and supported by hypotension, leukocytosis, and acute kidney injury. * Secondary to urinary tract infection. * Lactic acid levels within normal limits. * Blood cultures negative but urine with E coli * Levophed off and now on midodrine * resolved (3) Acute kidney injury: Code(s): N17.9 - Acute kidney failure, unspecified Status: Acute Assessment and Plan: * Likely multifactorial in etiology to include poor oral intake, diuretic use, vomiting, diarrhea, hypoperfusion from hypotension, and probable ATN from sepsis. * resolved (4) [facility] current use of anticoagulant: Code(s): Z79.01 - [facility] (current) use of anticoagulants Status: Acute Assessment and Plan: * She is on Xarelto at home, but due to her acute kidney injury initially held this medication. * Treated with Lovenox as decided by the emergency department physician in conjunction with the salvage worker per documentation. * with creatinine down was able to transition back to xarelto 04/15 (5) Cancer of left breast: Qualifiers: Breast location: unspecified site of breast Estrogen receptor status: unspecified Patient sex: female Qualified Code(s): C50.912 - Malignant neoplasm of unspecified site of left female breast Code(s): C50.912 - Malignant neoplasm of unspecified site of left female breast Status: Acute Assessment and Plan: * Currently being treated with neoadjuvant chemotherapy per Dr. Abraham. * Thus chemo infusion was apparently within the last several weeks. (6) Obstructive sleep apnea on CPAP: Code(s): G47.33 - Obstructive sleep apnea (adult) (pediatric); Z99.89 - Dependence on other enabling machines and devices Status: Acute Assessment and Plan: * Patient states compliance with CPAP. * CPAP ordered to be worn with naps and at nighttime. (7) Type 2 diabetes mellitus: Qualifiers: Diabetes mellitus terminal supervisor insulin use: without [facility] use Diabetes mellitus complication status: with other specified complication Qualified Code(s): E11.69 - Type 2 diabetes mellitus with other specified complication Code(s): E11.9 - Type 2 diabetes mellitus without complications Status: Acute Assessment and Plan: * no home medication for this * hemoglobin A1c 7.4, initiated sliding scale insulin, Accu-Cheks, and hypoglycemic protocol. Subjective Date/time seen: 04/17/19 11:56 Interval history: Admitted for UTI, sepsis. Tolerating diet. Up to chair. Denied pain. Review of Systems Review of Systems: All systems reviewed & are unremarkable except as noted in HPI and below Exam Narrative: Exam Narrative: HEENT: EOMI, PERRL, pharyngeal mucosa pink and intact NECK: No JVD CHEST: Clear to auscultat
--- NOTE | 2019-04-17 11:56 | PM.IMPN ---
Progress Note: A&P Assessment and Plan (1) Urinary tract infection: Qualifiers: Urinary tract infection type: site unspecified Hematuria presence: without hematuria Qualified Code(s): N39.0 - Urinary tract infection, site not specified Code(s): N39.0 - Urinary tract infection, site not specified Status: Acute Assessment and Plan: She was started on ceftriaxone in the emergency department. Urine growing Ecoli sensitive to ceftriaxone, D # 6 of 7 (2) Septic shock: Code(s): A41.9 - Sepsis, unspecified organism; R65.21 - Severe sepsis with septic shock Status: Acute Assessment and Plan: Present on admission and supported by hypotension, leukocytosis, and acute kidney injury. Secondary to urinary tract infection. Lactic acid levels within normal limits. Blood cultures negative but urine with E coli Levophed off and now on midodrine resolved (3) Acute kidney injury: Code(s): N17.9 - Acute kidney failure, unspecified Status: Acute Assessment and Plan: Likely multifactorial in etiology to include poor oral intake, diuretic use, vomiting, diarrhea, hypoperfusion from hypotension, and probable ATN from sepsis. resolved (4) alf current use of anticoagulant: Code(s): Z79.01 - alf (current) use of anticoagulants Status: Acute Assessment and Plan: She is on Xarelto at home, but due to her acute kidney injury initially held this medication. Treated with Lovenox as decided by the emergency department physician in conjunction with the mineral ore processing labourer per documentation. with creatinine down was able to transition back to xarelto 04/15 (5) Cancer of left breast: Qualifiers: Breast location: unspecified site of breast Estrogen receptor status: unspecified Patient sex: female Qualified Code(s): C50.912 - Malignant neoplasm of unspecified site of left female breast Code(s): C50.912 - Malignant neoplasm of unspecified site of left female breast Status: Acute Assessment and Plan: Currently being treated with neoadjuvant chemotherapy per Dr. Abraham. Thus chemo infusion was apparently within the last several weeks. (6) Obstructive sleep apnea on CPAP: Code(s): G47.33 - Obstructive sleep apnea (adult) (pediatric); Z99.89 - Dependence on other enabling machines and devices Status: Acute Assessment and Plan: Patient states compliance with CPAP. CPAP ordered to be worn with naps and at nighttime. (7) Type 2 diabetes mellitus: Qualifiers: Diabetes mellitus terminal computer operator insulin use: without terminal computer operator use Diabetes mellitus complication status: with other specified complication Qualified Code(s): E11.69 - Type 2 diabetes mellitus with other specified complication Code(s): E11.9 - Type 2 diabetes mellitus without complications Status: Acute Assessment and Plan: no home medication for this hemoglobin A1c 7.4, initiated sliding scale insulin, Accu-Cheks, and hypoglycemic protocol. Subjective Date/time seen: 04/17/19 11:56 Interval history: Admitted for UTI, sepsis. Tolerating diet. Up to chair. Denied pain. Review of Systems Review of Systems: All systems reviewed & are unremarkable except as noted in HPI and below Exam Narrative: Exam Narrative: HEENT: EOMI, PERRL, pharyngeal mucosa pink and intact NECK: No JVD CHEST: Clear to auscultation. Normal effort. HEART: NL S1/S2, regular, no murmur ABDOMEN: BS+, soft, nontender, no mass, no bruits EXTREMITIES: No cyanosis, edema, or clubbing NEUROLOGIC: CN intact and symmetric to inspection. MUSCULOSKELETAL: Tone and strength symmetric. PSYCH: Alert. Oriented to person, place, and time. Objective Data Vital Signs Vital Signs: Vital Signs - 24 hr 04/16/19 12:00 04/16/19 14:00 04/16/19 16:00 Temperature 96.7 F L 96.9 F L Pulse Rate 73 64 67 Respiratory Rate 18 15
[2019-04-17 13:29] LABS: Glucose Point of Care 136 (65-105)
--- NOTE | 2019-04-17 14:00 | WPDINTPN ---
Progress Note: A&P Assessment and Plan (1) Septic shock: Code(s): A41.9 - Sepsis, unspecified organism; R65.21 - Severe sepsis with septic shock Status: Acute Assessment and Plan: RESOLVED - patient presented with hypotension, nausea, vomiting, diarrhea, dehydration post chemotherapy. E coli UTI - off Levophed, continue midodrine - blood cultures negative x2 - urine cultures growing E coli, colon susceptible - continue ceftriaxone, - normal WBC count (2) Urinary tract infection: Qualifiers: Urinary tract infection type: site unspecified Hematuria presence: without hematuria Qualified Code(s): N39.0 - Urinary tract infection, site not specified Code(s): N39.0 - Urinary tract infection, site not specified Status: Acute Assessment and Plan: E coli UTI ( pansensitive) - continue antibiotics as above (3) Acute kidney injury: Code(s): N17.9 - Acute kidney failure, unspecified Status: Acute Assessment and Plan: patient with stage 3 chronic kidney disease, likely related to septic shock, UTI, hypovolemia/dehydration - urine output has improved, creatinine has normalized - will replace potassium and magnesium, diarrhea has improved - discontinue maintenance IV fluids - continue to monitor renal function, electrolytes and urine output (4) Acute dehydration: Code(s): E86.0 - Dehydration Status: Acute Assessment and Plan: RESOLVED: patient adequately fluid-resuscitated, patient also with adequate p.o. intake - renal function is normal, discontinue IV fluids - Continue to monitor (5) Obstructive sleep apnea on CPAP: Code(s): G47.33 - Obstructive sleep apnea (adult) (pediatric); Z99.89 - Dependence on other enabling machines and devices Status: Acute Assessment and Plan: patient with CPAP at home, will continue here in hospital (6) Type 2 diabetes mellitus: Qualifiers: Diabetes mellitus superintendent marine oil terminal insulin use: without superintendent marine oil terminal use Diabetes mellitus complication status: with other specified complication Qualified Code(s): E11.69 - Type 2 diabetes mellitus with other specified complication Code(s): E11.9 - Type 2 diabetes mellitus without complications Status: Acute Assessment and Plan: continue Accu-Cheks sliding scale insulin (7) superintendent marine oil terminal current use of anticoagulant: Code(s): Z79.01 - superintendent marine oil terminal (current) use of anticoagulants Status: Acute Assessment and Plan: 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 Abraham for breast cancer, last chemotherapy beginning of March 2019 (9) DVT prophylaxis: Code(s): Z29.9 - Encounter for prophylactic measures, unspecified Status: Acute Assessment and Plan: restart Xarelto Additional Plan discussed with patient and updated the pt with her condition and plan of care. I answered all questions. Code status: Full code Critical care time spent: 31 minutes Due to a high probability of clinically significant, life threatening deterioration, the patient required my highest level of preparedness to intervene emergently and I personally spent this critical care time directly and personally managing the patient. This critical care time included obtaining a history; examining the patient; pulse oximetry; ordering and review of
[2019-04-17] MEDS: EUCERIN CREAM 120 GM JAR 1 APPLIC TOPICAL (14:06)
[2019-04-17 18:05] LABS: Glucose Point of Care 149 (65-105)
--- NOTE | 2019-04-17 19:40 | CONS_ITS ---
DATE OF CONSULTATION: REASON FOR CONSULTATION: Breast cancer. 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 The patient started neoadjuvant chemotherapy with [facility] on February 19, 2019. The patient received cycle 3 of chemotherapy on April 03, 2019. She subsequently developed significant nausea, vomiting, and diarrhea along with tiredness and fatigue and came into the ER via ambulance. She was diagnosed to have UTI as well as sepsis from unspecified organism. She became hypotensive and received vasopressor support. She was started on antibiotic therapy for UTI. She is feeling better with improvement in diarrhea and nausea and vomiting. She denies any fevers and chills. She remains quite tired and fatigued. REVIEW OF SYSTEMS: 12-point review of system was reviewed and as per HPI, otherwise negative. PAST MEDICAL HISTORY: Left-sided breast cancer diagnosed in December 2018, anemia, anxiety, atrial fibrillation, bronchitis, COPD, congestive heart failure, history of DVT, history of kidney stone, hyperlipidemia, hypertension, hypothyroidism, obstructive sleep apnea, osteoporosis, osteoarthritis, rheumatoid arthritis, stage 3 kidney disease, type 2 diabetes. PAST SURGICAL HISTORY: Cataract surgery, hysterectomy, history of kidney removal, right renal stent placement, appendectomy, cholecystectomy, cystoscopy, lithotripsy. HOME MEDICATIONS: Reviewed. ALLERGIES: REVIEWED. FAMILY HISTORY: Positive for stroke in mother and father. SOCIAL HISTORY: The patient is never and has no children. 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 Denies any history of drinking and smoking. PHYSICAL EXAMINATION: GENERAL: This patient is obese female, in no apparent distress. Alert and oriented. VITAL SIGNS: Per nursing note. HEENT: Normocephalic, atraumatic. Clear oropharynx. LUNGS: Clear to auscultation bilaterally. CARDIOVASCULAR: Regular rate and rhythm. No murmur. ABDOMEN: Soft, nontender, nondistended. Bowel sounds are positive in all 4 quadrants. No hepatosplenomegaly. EXTREMITIES: No clubbing, cyanosis, or edema. NEURO: Grossly intact. LABORATORY DATA: WBC 8.7, hemoglobin 8.1, platelet 159,000, neutrophils 78%, lymphocytes 12%. Creatinine 0.8, calcium 7.6, potassium 3.0. ASSESSMENT AND PLAN: 1. Poorly differentiated invasive ductal carcinoma of the left breast. The patient is receiving neoadjuvant chemotherapy with [facility] and received cycle 3/6 on April 03, 2019. I have discussed this case with the patient and also Dr. Bryan Valiente. Our plan is to start her on antidiarrheal treatment prior to the chemotherapy as well as adding olanzapine for the nausea, vomiting control. We will also dose reduce the chemotherapy starting next cycle. I have also discussed other options and changing the chemotherapy with the patient. We will discuss this with the patient in next appointment, hopefully next 1-2 weeks after release from the hospital. 2. Anemia secondary to chemotherapy. The patient will receive blood transfusion on as needed basis. I will also order workup for anemia that will include iron studies and B12 level. 3. Urinary tract infection. The patient is on antibiotic therapy. 4. Sepsis. Improvement in blood pressure. The patient is off the Levophed. 5. Chemotherapy-induced diarrhea. This is improving. 6. History of deep vein thrombosis and pulmonary embolism. The patient is on Xarelto. V/Q scan in March 2019 showed low probability of pulmonary embolism. Doppler studies also negative for deep vein thrombosis. The patient also has a h
[2019-04-17 20:49] LABS: Iron 51 ug/dL (37-170)
[2019-04-17 20:59] LABS: Percent Iron Saturation 22 % (20-50)
[2019-04-17 21:05] LABS: Vitamin B12 > 1000.0 pg/mL (239-931)
--- NOTE | 2019-04-17 21:40 | PC.NURSE ---
This patient, Hoa Balbuena, was received from [ICU ] on 04/17/19 at 2140. Personal belongings list checked and signed. Patient/family oriented to unit policies and routines
[2019-04-18 06:04] LABS: Basophils Percent Auto 0.5 % (0.2-1.2); Immature Granulocyte Absolute 0.06 K/mm3 (0.00-0.031); Lymphocytes Absolute Auto 1.15 K/mm3 (0.9-3.2); Lymphocytes Percent Auto 18.9 % (18.3-44.2); Mean Corpuscular Hemoglobin 29.1 pg (26-34); Mean Corpuscular Volume 90.9 fl (80-100); Mean Platelet Volume 10.4 fl (7.4-10.4); Monocytes Absolute Auto 0.6 K/mm3 (0.1-0.6); Monocytes Percent Auto 9.6 % (2.6-8.5); Neutrophils Absolute Auto 4.3 K/mm3 (1.3-6.7); Platelet Count Result 168 k/mm3 (150-375); Red Blood Count 2.75 M/mm3 (4.2-5.4); Red Cell Distribution Width 18.4 % (11.5-14.5); White Blood Count 6.1 K/mm3 (4.5-10.0)
[2019-04-18 06:08] LABS: Blood Urea Nitrogen 6 mg/dL (7-17); Calcium 7.9 mg/dL (8.4-10.2); Carbon Dioxide 28 mmol/L (22-30); Chloride 102 mmol/L (98-107); Estimated CRCL calculation 64 ml/min; Estimated Glomerular Filt Rate > 60; Glucose 104 mg/dL (65-105); Magnesium 1.5 mg/dL (1.6-2.3); Phosphorus 2.4 mg/dL (2.5-4.5); Potassium 3.8 mmol/L (3.4-5.0); Sodium 135 mmol/L (137-145)
[2019-04-18 06:22] VITALS: BP 111/58; PULSE 75; RESP 16; O2SAT 98
[2019-04-18] MEDS: RIVAROXABAN 20 MG TABLET PO (08:10)
[2019-04-18] MEDS: EUCERIN CREAM 120 GM JAR 1 APPLIC TOPICAL (08:10)
[2019-04-18] MEDS: MIDODRINE HCL 10 MG TABLET PO ×3 (08:10→17:24)
[2019-04-18] MEDS: MUPIROCIN 2% OINT 22 GM TUBE 1 APPLIC EACH NARE ×2 (08:12→21:01)
[2019-04-18 09:48] LABS: Glucose Point of Care 113 (65-105)
[2019-04-18] MEDS: MAGNESIUM SULF 2 GM/WATER 50ML 2 GM/50 ML BAG IVPB (10:28)
--- NOTE | 2019-04-18 11:33 | P.PNIM_ITS ---
Progress Note: A&P Assessment and Plan (1) Urinary tract infection: Qualifiers: Urinary tract infection type: site unspecified Hematuria presence: without hematuria Qualified Code(s): N39.0 - Urinary tract infection, site not specified Code(s): N39.0 - Urinary tract infection, site not specified Status: Acute Assessment and Plan: * She was started on ceftriaxone in the emergency department. * Urine growing Ecoli sensitive to ceftriaxone, D # 7 of 7 * Likely home 04/19 (2) Septic shock: Code(s): A41.9 - Sepsis, unspecified organism; R65.21 - Severe sepsis with septic shock Status: Acute Assessment and Plan: * Present on admission and supported by hypotension, leukocytosis, and acute kidney injury. * Secondary to urinary tract infection. * Lactic acid levels within normal limits. * Blood cultures negative but urine with E coli * Levophed off and now on midodrine * resolved (3) Acute kidney injury: Code(s): N17.9 - Acute kidney failure, unspecified Status: Acute Assessment and Plan: * Likely multifactorial in etiology to include poor oral intake, diuretic use, vomiting, diarrhea, hypoperfusion from hypotension, and probable ATN from sepsis. * resolved (4) [facility] current use of anticoagulant: Code(s): Z79.01 - [facility] (current) use of anticoagulants Status: Acute Assessment and Plan: * She is on Xarelto at home, but due to her acute kidney injury initially held this medication. * Treated with Lovenox as decided by the emergency department physician in conjunction with the b2b sales executive per documentation. * with creatinine down was able to transition back to xarelto 04/15 (5) Cancer of left breast: Qualifiers: Breast location: unspecified site of breast Estrogen receptor status: unspecified Patient sex: female Qualified Code(s): C50.912 - Malignant neoplasm of unspecified site of left female breast Code(s): C50.912 - Malignant neoplasm of unspecified site of left female breast Status: Acute Assessment and Plan: * Currently being treated with neoadjuvant chemotherapy per Dr. Abraham. * Thus chemo infusion was apparently within the last several weeks. (6) Obstructive sleep apnea on CPAP: Code(s): G47.33 - Obstructive sleep apnea (adult) (pediatric); Z99.89 - Dependence on other enabling machines and devices Status: Acute Assessment and Plan: * Patient states compliance with CPAP. * CPAP ordered to be worn with naps and at nighttime. (7) Type 2 diabetes mellitus: Qualifiers: Diabetes mellitus [facility] insulin use: without [facility] use Diabetes mellitus complication status: with other specified complication Qualified Code(s): E11.69 - Type 2 diabetes mellitus with other specified complication Code(s): E11.9 - Type 2 diabetes mellitus without complications Status: Acute Assessment and Plan: * no home medication for this * hemoglobin A1c 7.4, initiated sliding scale insulin, Accu-Cheks, and hypoglycemic protocol. Subjective Date/time seen: 04/18/19 11:33 Interval history: Admitted for UTI, sepsis. Tolerating diet. Up to chair. Denied pain. Review of Systems Review of Systems: All systems reviewed & are unremarkable except as noted in HPI and below Exam Narrative: Exam Narrative: HEENT: EOMI, PERRL, pharyngeal mucosa pink and intact NECK: No JVD C
--- NOTE | 2019-04-18 11:33 | PM.IMPN ---
Progress Note: A&P Assessment and Plan (1) Urinary tract infection: Qualifiers: Urinary tract infection type: site unspecified Hematuria presence: without hematuria Qualified Code(s): N39.0 - Urinary tract infection, site not specified Code(s): N39.0 - Urinary tract infection, site not specified Status: Acute Assessment and Plan: She was started on ceftriaxone in the emergency department. Urine growing Ecoli sensitive to ceftriaxone, D # 7 of 7 Likely home 04/19 (2) Septic shock: Code(s): A41.9 - Sepsis, unspecified organism; R65.21 - Severe sepsis with septic shock Status: Acute Assessment and Plan: Present on admission and supported by hypotension, leukocytosis, and acute kidney injury. Secondary to urinary tract infection. Lactic acid levels within normal limits. Blood cultures negative but urine with E coli Levophed off and now on midodrine resolved (3) Acute kidney injury: Code(s): N17.9 - Acute kidney failure, unspecified Status: Acute Assessment and Plan: Likely multifactorial in etiology to include poor oral intake, diuretic use, vomiting, diarrhea, hypoperfusion from hypotension, and probable ATN from sepsis. resolved (4) longterm current use of anticoagulant: Code(s): Z79.01 - longterm (current) use of anticoagulants Status: Acute Assessment and Plan: She is on Xarelto at home, but due to her acute kidney injury initially held this medication. Treated with Lovenox as decided by the emergency department physician in conjunction with the senior net architect per documentation. with creatinine down was able to transition back to xarelto 04/15 (5) Cancer of left breast: Qualifiers: Breast location: unspecified site of breast Estrogen receptor status: unspecified Patient sex: female Qualified Code(s): C50.912 - Malignant neoplasm of unspecified site of left female breast Code(s): C50.912 - Malignant neoplasm of unspecified site of left female breast Status: Acute Assessment and Plan: Currently being treated with neoadjuvant chemotherapy per Dr. Abraham. Thus chemo infusion was apparently within the last several weeks. (6) Obstructive sleep apnea on CPAP: Code(s): G47.33 - Obstructive sleep apnea (adult) (pediatric); Z99.89 - Dependence on other enabling machines and devices Status: Acute Assessment and Plan: Patient states compliance with CPAP. CPAP ordered to be worn with naps and at nighttime. (7) Type 2 diabetes mellitus: Qualifiers: Diabetes mellitus long chain dyeing machine operator insulin use: without long chain dyeing machine operator use Diabetes mellitus complication status: with other specified complication Qualified Code(s): E11.69 - Type 2 diabetes mellitus with other specified complication Code(s): E11.9 - Type 2 diabetes mellitus without complications Status: Acute Assessment and Plan: no home medication for this hemoglobin A1c 7.4, initiated sliding scale insulin, Accu-Cheks, and hypoglycemic protocol. Subjective Date/time seen: 04/18/19 11:33 Interval history: Admitted for UTI, sepsis. Tolerating diet. Up to chair. Denied pain. Review of Systems Review of Systems: All systems reviewed & are unremarkable except as noted in HPI and below Exam Narrative: Exam Narrative: HEENT: EOMI, PERRL, pharyngeal mucosa pink and intact NECK: No JVD CHEST: Clear to auscultation. Normal effort. HEART: NL S1/S2, regular, no murmur ABDOMEN: BS+, soft, nontender, no mass, no bruits EXTREMITIES: No cyanosis, edema, or clubbing NEUROLOGIC: CN intact and symmetric to inspection. MUSCULOSKELETAL: Tone and strength symmetric. PSYCH: Alert. Oriented to person, place, and time. Objective Data Vital Signs Vital Signs: Vital Signs - 24 hr 04/17/19 17:30 04/18/19 06:22 Temperature 97.8 F Pulse Rate 78 75 Respiratory Rate 20 16 Blood Pres
[2019-04-18 14:00] VITALS: BP 115/68; PULSE 83; RESP 16; TEMP 36.8; O2SAT 97
[2019-04-18 14:03] LABS: Glucose Point of Care 119 (65-105)
[2019-04-18 17:34] LABS: Glucose Point of Care 123 (65-105)
--- NOTE | 2019-04-18 18:18 | WPDONCPN ---
Progress Note: A/P - Additional Plan Early stage breast cancer. Patient is receiving TCH Perjeta. Plan to hold chemotherapy until she is better and recover from this recent infection. Diarrhea secondary to chemotherapy. This has much improved. UTI/sepsis. Patient is on antibiotics. Patient remains afebrile. Anemia. This is secondary to chemotherapy and male nutrition. Iron studies normal. B12 level is elevated. We will transfuse only as needed. - Time Spent With Patient Total time spent is greater than 50% in coordination of care (as documented) at patient's floor/unit and/or counseling patient: 15 - 25 minutes Subjective Interval history: Early stage breast cancer with ongoing chemotherapy Sepsis UTI Anemia Review of Systems - Review of Systems Patient is clinically looking better with more energy level. Denies any further diarrhea and nausea vomiting. Denies any fevers and chills. She eating better. Exam Vital signs: Temp Pulse Resp BP Pulse Ox 36.8 C 83 16 115/68 97 04/18/19 14:00 04/18/19 14:00 04/18/19 14:00 04/18/19 14:00 04/18/19 14:00 Lungs are clear to auscultation bilaterally Cardiovascular regular rate rhythm no murmurs Abdomen soft nontender nondistended Extremities no edema PN: Objective Data - Labs CBC & Chem 7: 04/18/19 05:43 04/18/19 05:43 Labs: Laboratory Results - last 24 hr 04/17/19 04/17/19 04/18/19 19:51 19:51 05:43 WBC 6.1 RBC 2.75 L Hgb 8.0 L Hct 25.0 L MCV 90.9 MCH 29.1 MCHC 32.0 RDW 18.4 H Plt Count 168 MPV 10.4 Immature Gran % (Auto) 1.0 H Neut % (Auto) 70.0 Lymph % (Auto) 18.9 [place] % (Auto) 9.6 H Eos % (Auto) 0.0 Baso % (Auto) 0.5 Lymph # (Auto) 1.15 [place] # (Auto) 0.6 Eos # (Auto) 0.0 Baso # (Auto) 0.0 Abs Immat Gran (auto) 0.06 H Absolute Neuts (auto) 4.3 Absolute Nucleated RBC 0.0 Nucleated RBC % 0.0 Sodium Potassium Chloride Carbon Dioxide BUN Creatinine Estim Creat Clear Calc Estimated GFR Glucose POC Capillary Glucose Calcium Phosphorus Magnesium Iron 51 TIBC 237 L % Saturation 22 Ferritin 127.00 Vitamin B12 > 1000.0 H 04/18/19 04/18/19 04/18/19 05:43 08:07 13:06 WBC RBC Hgb Hct MCV MCH MCHC RDW Plt Count MPV Immature Gran % (Auto) Neut % (Auto) Lymph % (Auto) [place] % (Auto) Eos % (Auto) Baso % (Auto) Lymph # (Auto) [place] # (Auto) Eos # (Auto) Baso # (Auto) Abs Immat Gran (auto) Absolute Neuts (auto) Absolute Nucleated RBC Nucleated RBC % Sodium 135 L Potassium 3.8 Chloride 102 Carbon Dioxide 28 BUN 6 L Creatinine 0.90 Estim Creat Clear Calc 64 Estimated GFR > 60 Glucose 104 POC Capillary Glucose 113 H 119 H Calcium 7.9 L Phosphorus 2.4 L Magnesium 1.5 L Iron TIBC % Saturation Ferritin Vitamin B12 04/18/19 17:23 WBC RBC Hgb Hct MCV MCH MCHC RDW Plt Count MPV Immature Gran % (Auto) Neut % (Auto) Lymph % (Auto) [place] % (Auto) Eos % (Auto) Baso % (Auto) Lymph # (Auto) [place] # (Auto) Eos # (Auto) Baso # (Auto) Abs Immat Gran (auto) Absolute Neuts (auto) Absolute Nucleated RBC Nucleated RBC % Sodium Potassium Chloride Carbon Dioxide BUN Creatinine Estim Creat Clear Calc Estimated GFR Glucose POC Capillary Glucose 123 H Calcium Phosphorus Magnesium Iron TIBC % Saturation Ferritin Vitamin B12
[2019-04-18 19:52] VITALS: BP 94/52; PULSE 64; RESP 16; TEMP 36.1; O2SAT 98
[2019-04-18] MEDS: ONDANSETRON INJ 4 MG/2 ML VIAL IV PUSH (21:06)
[2019-04-18 22:10] LABS: Glucose Point of Care 121 (65-105)
[2019-04-19 03:23] VITALS: PULSE 82; RESP 20; O2SAT 96
[2019-04-19] MEDS: ONDANSETRON INJ 4 MG/2 ML VIAL IV PUSH (03:29)
[2019-04-19 05:27] VITALS: BP 112/56; PULSE 65; RESP 13; TEMP 36.1; O2SAT 100
[2019-04-19 05:41] LABS: Hematocrit 24.5 % (37.0-47.0); Mean Corpuscular HGB Conc 32.7 g/dl (32-36); Mean Corpuscular Volume 91.8 fl (80-100); Mean Platelet Volume 10.2 fl (7.4-10.4); Platelet Count Result 164 k/mm3 (150-375); Red Blood Count 2.67 M/mm3 (4.2-5.4); Red Cell Distribution Width 18.4 % (11.5-14.5); White Blood Count 6.2 K/mm3 (4.5-10.0)
[2019-04-19 05:56] LABS: Blood Urea Nitrogen 7 mg/dL (7-17); Calcium 8.1 mg/dL (8.4-10.2); Carbon Dioxide 30 mmol/L (22-30); Chloride 100 mmol/L (98-107); Estimated CRCL calculation 66 ml/min; Estimated Glomerular Filt Rate > 60; Glucose 120 mg/dL (65-105); Potassium 3.7 mmol/L (3.4-5.0); Sodium 135 mmol/L (137-145)
[2019-04-19 08:16] LABS: Glucose Point of Care 137 (65-105)
[2019-04-19] MEDS: RIVAROXABAN 20 MG TABLET PO (08:45)
[2019-04-19] MEDS: MIDODRINE HCL 10 MG TABLET PO ×2 (08:45→13:01)
[2019-04-19] MEDS: EUCERIN CREAM 120 GM JAR 1 APPLIC TOPICAL (08:46)
[2019-04-19] MEDS: MUPIROCIN 2% OINT 22 GM TUBE 1 APPLIC EACH NARE (08:46)
[2019-04-19 11:42] LABS: Glucose Point of Care 106 (65-105)
--- NOTE | 2019-04-19 13:11 | P.DS_ITS ---
DS: Diagnosis Admitting Diagnosis Admitting Diagnosis: Sepsis, unspecified organism Discharge Diagnosis (1) Urinary tract infection: Qualifiers: Hematuria presence: without hematuria Urinary tract infection type: site unspecified Qualified Code(s): N39.0 - Urinary tract infection, site not specified Code(s): N39.0 - Urinary tract infection, site not specified Status: Acute Assessment and Plan: * She was started on ceftriaxone in the emergency department. * Urine growing Ecoli sensitive to ceftriaxone, D # 7 of 7 * Likely home 04/19 (2) Septic shock: Code(s): A41.9 - Sepsis, unspecified organism; R65.21 - Severe sepsis with septic shock Status: Acute Assessment and Plan: * Present on admission and supported by hypotension, leukocytosis, and acute kidney injury. * Secondary to urinary tract infection. * Lactic acid levels within normal limits. * Blood cultures negative but urine with E coli * Levophed off and now on midodrine * resolved (3) Acute kidney injury: Code(s): N17.9 - Acute kidney failure, unspecified Status: Acute Assessment and Plan: * Likely multifactorial in etiology to include poor oral intake, diuretic use, vomiting, diarrhea, hypoperfusion from hypotension, and probable ATN from sepsis. 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 * Treated with Lovenox as decided by the emergency department physician in conj unction with the senior research associate per documentation. * with creatinine down was able to transition back to xarelto 04/15 (5) Cancer of left breast: Qualifiers: Breast location: unspecified site of breast Estrogen receptor status: unspecified Patient sex: female Qualified Code(s): C50.912 - Malignant neoplasm of unspecified site of left female breast Code(s): C50.912 - Malignant neoplasm of unspecified site of left female breast Status: Acute Assessment and Plan: * Currently being treated with neoadjuvant chemotherapy per Dr. Abraham. * Thus chemo infusion was apparently within the last several weeks. (6) Obstructive sleep apnea on CPAP: Code(s): G47.33 - Obstructive sleep apnea (adult) (pediatric); Z99.89 - Dependence on other enabling machines and devices Status: Acute Assessment and Plan: * Patient states compliance with CPAP. * CPAP ordered to be worn with naps and at nighttime. (7) Type 2 diabetes mellitus: Qualifiers: Diabetes mellitus complication status: with other specified complication Diabetes mellitus terminal press operator insulin use: without terminal press operator use Qualified Code(s): E11.69 - Type 2 diabetes mellitus with other specified complication Code(s): E11.9 - Type 2 diabetes mellitus without complications Status: Acute Assessment and Plan: * no home medication for this * hemoglobin A1c 7.4, initiated sliding scale insulin, Accu-Cheks, and hypoglycemic protocol. DS: Summary Hospital Course Reason for hospitalization: Nausea vomiting diarrhea Hospital Course: * 69-year-old female resident of assisted living presented with nausea vomiting and diarrhea. Found to have abnormal urinalysis. Treated for UTI with sepsis. Fluid resuscitation in ICU. Ceftriaxone IV. Gradually improved. Had acu
--- NOTE | 2019-04-19 13:11 | PM.DS ---
DS: Diagnosis Admitting Diagnosis Admitting Diagnosis: Sepsis, unspecified organism Discharge Diagnosis (1) Urinary tract infection: Qualifiers: Hematuria presence: without hematuria Urinary tract infection type: site unspecified Qualified Code(s): N39.0 - Urinary tract infection, site not specified Code(s): N39.0 - Urinary tract infection, site not specified Status: Acute Assessment and Plan: She was started on ceftriaxone in the emergency department. Urine growing Ecoli sensitive to ceftriaxone, D # 7 of 7 Likely home 04/19 (2) Septic shock: Code(s): A41.9 - Sepsis, unspecified organism; R65.21 - Severe sepsis with septic shock Status: Acute Assessment and Plan: Present on admission and supported by hypotension, leukocytosis, and acute kidney injury. Secondary to urinary tract infection. Lactic acid levels within normal limits. Blood cultures negative but urine with E coli Levophed off and now on midodrine resolved (3) Acute kidney injury: Code(s): N17.9 - Acute kidney failure, unspecified Status: Acute Assessment and Plan: Likely multifactorial in etiology to include poor oral intake, diuretic use, vomiting, diarrhea, hypoperfusion from hypotension, and probable ATN from sepsis. 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 Treated with Lovenox as decided by the emergency department physician in conjunction with the human services assistant per documentation. with creatinine down was able to transition back to xarelto 04/15 (5) Cancer of left breast: Qualifiers: Breast location: unspecified site of breast Estrogen receptor status: unspecified Patient sex: female Qualified Code(s): C50.912 - Malignant neoplasm of unspecified site of left female breast Code(s): C50.912 - Malignant neoplasm of unspecified site of left female breast Status: Acute Assessment and Plan: Currently being treated with neoadjuvant chemotherapy per Dr. Abraham. Thus chemo infusion was apparently within the last several weeks. (6) Obstructive sleep apnea on CPAP: Code(s): G47.33 - Obstructive sleep apnea (adult) (pediatric); Z99.89 - Dependence on other enabling machines and devices Status: Acute Assessment and Plan: Patient states compliance with CPAP. CPAP ordered to be worn with naps and at nighttime. (7) Type 2 diabetes mellitus: Qualifiers: Diabetes mellitus complication status: with other specified complication Diabetes mellitus intermediate designer insulin use: without [facility] use Qualified Code(s): E11.69 - Type 2 diabetes mellitus with other specified complication Code(s): E11.9 - Type 2 diabetes mellitus without complications Status: Acute Assessment and Plan: no home medication for this hemoglobin A1c 7.4, initiated sliding scale insulin, Accu-Cheks, and hypoglycemic protocol. DS: Summary Hospital Course Reason for hospitalization: Nausea vomiting diarrhea Hospital Course: 69-year-old female resident of assisted living presented with nausea vomiting and diarrhea. Found to have abnormal urinalysis. Treated for UTI with sepsis. Fluid resuscitation in ICU. Ceftriaxone IV. Gradually improved. Had acute kidney injury upon admission. This resolved with hydration. By day of discharge she was ambulating with walker, tolerating diet, and wished to return to her assisted living apartment. Status at Discharge Functional status at discharge: uses cane/walker Overall status at discharge: patient is back to baseline Time Spent with Patient Time attestation: Total time spent providing and/or coordinating discharge services: 35 min Exam Narrative:
--- NOTE | 2019-04-19 13:27 | PCDIET ---
Nutrition LOS complete Pt current nutrition is Regular level seven + thrive BID Nutrition recommendation: Agree Last recorded weight is 119 kg. Bowel Motility:Last BM 04/16 Labs Reviewed:04/19 Na 135, Hgb 8.0, Hct 24.5, Glucose 137 Meds Noted:Lomotil, Insulin Additional Notes: Seeing pt 2/2 LOS. Pt eating 80-100% of all meals and states appetite is better. Diarrhea 2/2 chemo is improving as well. Thrive offered BID in addition to diet. Thrive provides 9 grams of protein, 24 vitamins and minerals, 6grams of fiber, and 270 kcal per serving. Edu provided on chemo and dietary strategies to reduce diarrhea. Handout provided. We will continue to monitor pt every seven days.
[2019-04-19] MEDS: HEPARIN SOD FLUSH 500 UNITS/5 ML SYRINGE IV PUSH (14:08)
== END 2019-04-19 14:30 | DRG 871 ==
LOC: ANHED 18:14 → ANHICU 20:42 → ANH3MED 04-19 13:16 → ANHICU 04-23 13:06
PROVIDERS: Emergency Medicine; Internal Medicine; Internal Medicine Hematology & Oncology; Physician Assistant; Admitting Provider Internal Medicine; Emergency Provider Emergency Medicine; PCP Family Medicine; Visit Provider Internal Medicine
DX: A41.9 Sepsis, unspecified organism (principal); R65.21 Severe sepsis with septic shock; N17.0 Acute kidney failure with tubular necrosis; N39.0 Urinary tract infection, site not specified; I50.32 Chronic diastolic (congestive) heart failure; I48.20 Chronic atrial fibrillation, unspecified; K52.1 Toxic gastroenteritis and colitis; I12.9 Hypertensive chronic kidney disease with stage 1 through stage 4 chronic kidney disease, or unspecified chronic kidney disease; N18.3 Chronic kidney disease, stage 3 (moderate); E11.22 Type 2 diabetes mellitus with diabetic chronic kidney disease; B96.20 Unspecified Escherichia coli [E. coli] as the cause of diseases classified elsewhere; T45.1X5A Adverse effect of antineoplastic and immunosuppressive drugs, initial encounter; C50.912 Malignant neoplasm of unspecified site of left female breast; G47.33 Obstructive sleep apnea (adult) (pediatric); E78.5 Hyperlipidemia, unspecified; M06.9 Rheumatoid arthritis, unspecified; D63.8 Anemia in other chronic diseases classified elsewhere; D64.81 Anemia due to antineoplastic chemotherapy; J43.9 Emphysema, unspecified; M19.90 Unspecified osteoarthritis, unspecified site; M81.0 Age-related osteoporosis without current pathological fracture; E86.0 Dehydration; E87.6 Hypokalemia; E83.42 Hypomagnesemia; Z86.718 Personal history of other venous thrombosis and embolism; Z79.01 Long term (current) use of anticoagulants; Z87.11 Personal history of peptic ulcer disease; Z86.711 Personal history of pulmonary embolism; Z90.710 Acquired absence of both cervix and uterus; Z90.49 Acquired absence of other specified parts of digestive tract
CPT/HCPCS: 36415; 51701; 71046; 74176; 78582; 80048; 80053; 81001; 82550; 82607; 82728; 83036; 83540; 83550; 83605; 83690; 83735; 83880; 84100; 84439; 84443; 84480; 84484; 85025; 85027; 85380; 85610; 85730; 87040; 87077; 87081; 87086; 87088; 87186; 87324; 87804; 93005; 93970; 96361; 96365; 96366; 96367; 96368; 96375; 97110; 97116; 97162; 97165; 97535; 99291; A9270; A9540; A9558; J0696; J1642; J1650; J1815; J2405; J2765; J3370; J3475; J3480; J7030; J7040; J7050; J7070

== ENCOUNTER 2019-05-01 10:32 | Outpatient (CLI) | payer MEDICARE, SELFPAY ==
[2019-05-01 11:00] LABS: Basophils Percent Auto 0.8 % (0.2-1.2); Eosinophils Absolute Auto 0.3 K/mm3 (0-0.3); Eosinophils Percent Auto 5.7 % (0-4.4); Hematocrit 29.9 % (37.0-47.0); Hemoglobin 9.7 g/dL (12.0-15.0); Immature Granulocyte Absolute 0.02 K/mm3 (0.00-0.031); Immature Granulocyte Percent A 0.4 % (0-0.5); Lymphocytes Absolute Auto 0.77 K/mm3 (0.9-3.2); Lymphocytes Percent Auto 15.6 % (18.3-44.2); Mean Corpuscular HGB Conc 32.4 g/dl (32-36); Mean Corpuscular Hemoglobin 30.1 pg (26-34); Mean Corpuscular Volume 92.9 fl (80-100); Mean Platelet Volume 9.2 fl (7.4-10.4); Monocytes Absolute Auto 0.6 K/mm3 (0.1-0.6); Neutrophils Absolute Auto 3.2 K/mm3 (1.3-6.7); Neutrophils Percent Auto 65.5 % (45.5-73.1); Platelet Count Result 339 k/mm3 (150-375); Red Blood Count 3.22 M/mm3 (4.2-5.4); Red Cell Distribution Width 19.5 % (11.5-14.5); White Blood Count 4.9 K/mm3 (4.5-10.0)
[2019-05-01 11:23] LABS: Prealbumin 20.2 mg/dL (17.6-36.0)
== END 2019-05-01 10:33 | disposition home or self-care (01) ==
LOC: ANHLAB 10:35
PROVIDERS: PCP Family Medicine; Visit Provider Surgery
DX: C50.912 Malignant neoplasm of unspecified site of left female breast (principal)
CPT/HCPCS: 36415; 84134; 85025

== ENCOUNTER 2019-07-28 00:16 | Outpatient (CLI) | payer MEDICARE, SELFPAY ==
[2019-07-28 18:00] LABS: SARS-CoV-2 RNA PCR Negative
== END 2019-07-28 00:17 | disposition home or self-care (01) ==
LOC: ANHCOVIDDT 00:16
PROVIDERS: PCP Family Medicine; Visit Provider Surgery
DX: Z01.812 Encounter for preprocedural laboratory examination (principal); Z20.828 Contact with and (suspected) exposure to other viral communicable diseases
CPT/HCPCS: 87635; C9803; U0003

== ENCOUNTER 2019-07-28 08:13 | Outpatient (CLI) | payer MEDICARE, SELFPAY ==
--- NOTE | 2019-07-28 08:31 | ECG_ITS ---
Measurements Intervals [place] Rate: 106 P: 28 OK: 158 QRS: -12 QRSD: 90 T: 15 QT: 362 QTc: 481 Interpretive Statements SINUS TACHYCARDIA LOW QRS VOLTAGE IN PRECORDIAL LEADS INFERIOR INFARCT, AGE INDETERMINATE BASELINE ARTIFACT- I, II ABNORMAL ECG Electronically Signed On 07-28-2019 9:03:02 CDT by Gadiel Marin D.O.
[2019-07-28 08:39] LABS: Basophils Percent Auto 1.1 % (0.2-1.2); Eosinophils Absolute Auto 0.2 K/mm3 (0-0.3); Eosinophils Percent Auto 5.6 % (0-4.4); Hemoglobin 12.2 g/dL (12.0-15.0); Immature Granulocyte Absolute 0.01 K/mm3 (0.00-0.031); Immature Granulocyte Percent A 0.3 % (0-0.5); Lymphocytes Absolute Auto 1.14 K/mm3 (0.9-3.2); Lymphocytes Percent Auto 30.2 % (18.3-44.2); Mean Corpuscular HGB Conc 32.1 g/dl (32-36); Mean Corpuscular Hemoglobin 29.4 pg (26-34); Mean Corpuscular Volume 91.6 fl (80-100); Monocytes Absolute Auto 0.4 K/mm3 (0.1-0.6); Monocytes Percent Auto 11.4 % (2.6-8.5); Neutrophils Absolute Auto 1.9 K/mm3 (1.3-6.7); Neutrophils Percent Auto 51.4 % (45.5-73.1); Platelet Count Result 256 k/mm3 (150-375); Red Blood Count 4.15 M/mm3 (4.2-5.4); Red Cell Distribution Width 13.5 % (11.5-14.5); White Blood Count 3.8 K/mm3 (4.5-10.0)
[2019-07-28 08:49] LABS: INR 1.8; Prothrombin Time 20.6 Seconds (11.1-14.7)
[2019-07-28 08:50] LABS: Partial Thromboplastin Time 33.3 SECONDS (22.3-36.8)
[2019-07-28 08:52] LABS: Alanine Aminotransferase 15 U/L (4-35); Albumin Level 4.4 g/dL (3.5-5.1); Alkaline Phosphatase 62 U/L (38-126); Aspartate Amino Transferase 22 U/L (14-36); Bilirubin,Total 0.6 mg/dL (0.2-1.3); Blood Urea Nitrogen 37 mg/dL (7-17); Calcium 10.4 mg/dL (8.4-10.2); Carbon Dioxide 26 mmol/L (22-30); Chloride 102 mmol/L (98-107); Estimated Glomerular Filt Rate 40; Glucose 116 mg/dL (65-105); Potassium 3.9 mmol/L (3.4-5.0); Sodium 139 mmol/L (137-145)
[2019-07-28 09:17] LABS: Add Urine Microscopic? YES; Appearance Urine Cloudy (Clear); Bacteria Urine Trace /hpf; Bilirubin Urine Negative (Negative); Color Urine Yellow (Yellow); Glucose Urine UA Negative (Negative); Ketones Urine Negative (Negative); Leukocyte Esterase Ur 2+ LEU/UL (Negative); Mucus Urine Few /lpf; Nitrate Urine Negative (Negative); Protein Urine Negative (Negative); Specific Grav Ur 1.025 (1.001-1.035); Squamous Epithelial Cell Urine Many /hpf (Few); Urobilinogen Urine Negative mg/dL (<2.0); WBC Urine 21-30 /hpf
[2019-07-28 09:19] LABS: Blood Urine Negative (Negative)
== END 2019-07-28 08:14 | disposition home or self-care (01) ==
LOC: ANHLAB 08:15
PROVIDERS: PCP Family Medicine; Visit Provider Surgery
DX: Z01.812 Encounter for preprocedural laboratory examination (principal); C50.912 Malignant neoplasm of unspecified site of left female breast; I48.91 Unspecified atrial fibrillation; R94.31 Abnormal electrocardiogram [ECG] [EKG]
CPT/HCPCS: 36415; 80053; 81001; 85025; 85610; 85730; 86850; 86900; 86901; 87077; 87086; 87088; 87186; 93005

== ENCOUNTER 2019-07-31 17:06 | Inpatient (IN) | payer MEDICARE, SELFPAY ==
[2019-07-24 15:43] VITALS: BMI 40.3
[2019-07-31] VITALS (20 sets, daily range): BP systolic 83–117; BP diastolic 49–73; PULSE 81–124; RESP 14–20; TEMP 36.4–37.2; O2SAT 92–99
--- NOTE | ~2019-07-31 | NM_ITS ---
EXAMINATION: NM sentinel node inject only DATE: 07/31/2019 14:30 INDICATION: Left breast cancer. TECHNIQUE: 0.987 mCi Tc-99m filtered sulfur colloid was injected in 4 aliquots in the anterior left b reast near the areola. No images were obtained. IMPRESSION: 1. Left breast sentinel lymph node radiopharmaceutical injection. Reviewed, dictated and finalized at location A.
[2019-07-31] MEDS: ENOXAPARIN 40 MG/0.4 ML SYRINGE SUB-Q (09:32)
[2019-07-31] MEDS: LACTATED RINGERS 1,000 ML 30 ML IV CONT ×2 (09:45→15:57)
[2019-07-31 09:52] LABS: Glucose Point of Care 95 (65-105)
[2019-07-31 10:03] LABS: INR 0.9; Partial Thromboplastin Time 24.2 SECONDS (22.3-36.8); Prothrombin Time 11.7 Seconds (11.1-14.7)
--- NOTE | 2019-07-31 10:19 | SUR.PREOP ---
1019-M.TERELL LONDON NOTIFIED DR. COX'S OFFICE OF POSITIVE URINE CULTURE-THEY WILL INFORM HIM.
--- NOTE | 2019-07-31 10:25 | SUR.PREOP ---
1025-DR. AUGUST AWARE OF PT'S B/P AND PT ASYMPTOMATIC.
--- NOTE | 2019-07-31 10:43 | SUR.PREOP ---
1032-DR. COX'S OFFICE CALLED BACK, AWARE OF RESULT, NO NEW ORDER AT THIS TIME.
--- NOTE | 2019-07-31 11:03 | SUR.PREOP ---
1100-TO NUCLEAR MEDICINE DEPT PER STRETCHER.
--- NOTE | 2019-07-31 11:26 | PM.HPGS ---
History of Present Illness History of Present Illness Consent: Risks, benefits, and alternatives of a left sentinel lymph node biopsy with simple mastectomy, possible left axillary dissection have been discussed and questions answered. Patient agrees to proceed with procedure. Chief complaint: Left Breast CA Narrative: Hoa Balbuena is a 69 year old female who recently returned to the office for a re-evaluation and to ask questions prior to a left breast mastectomy, sentinel lymph node biopsy, and possible left axillary dissection that is set up for 07/31/2019. Patient and her [id number] were present at the recent office visit. 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 ER NE positive, HER-2/mónica positive, with Ki-67 of 30%. Patient was on noeadjuvanct chemotherapy with TCH and Perjeta started on 02/19/19. Patient recieved cycle 3 of chemotherapy on 04/03/2019 and she was admitted to the hospital with nausea, vomiting, diarrhea, and was diagnosed to have UTI and sepsis. Chemotherapy has been placed on hold until surgery is complete. she has been continued on Arimidex 1 mg once a day through the COVPA-19 problem but now presents for surgical intervention. Patient reports that she has been eating 2 eggs everyday and drinking Ensure daily as well. Patient reports she is feeling well. Patient did have a CBC and pre-albumin completed after her last visit. Patients hemoglobin was still at 9 and her pre-albumin was on the low end of normal. However, a repeat CBC if you days ago showed her hemoglobin up to 12.0. Both of these previous values had not changed much since her lab work from 04/24/2019. Patient does report that she has had diarrhea still once in a while. Patient also reports no recent urinary tract symptoms such as urinary frequency or urgency or burning with urination. Review of Systems Constitutional: Constitutional: Reports no additional constitutional complaints, Reports fatigue and Denies malaise Eyes: Eyes: Denies change in vision and Denies loss of vision ENT: Reports Normal hearing present, Denies change in voice, Denies dizziness, Denies hoarseness and Denies sore throat Cardiovascular: Cardiovascular: Denies chest pain, Denies leg edema and Denies dyspnea Comments: Patient has a long-term history of atrial fibrillation has been on oral blood thinners for this. These have been stopped for surgery. Respiratory: Respiratory: Reports no additional respiratory complaints, Denies cough, Denies dyspnea and Denies wheezing Gastrointestinal: Gastrointestinal: Denies hematochezia, Denies change in bowel habits and Denies heartburn Genitourinary: Genitourinary: Denies urinary frequency and Denies urinary incontinence Comments: History of urinary tract infections. Musculoskeletal: Musculoskeletal: Reports myalgias Neurologic: Reports Normal hearing present, Denies confusion, Denies dizziness, Denies loss of vision, Denies memory loss and Denies seizure-like activity Psychiatric: Psychiatric: Denies confusion, Denies depression and Denies memory loss Endocrine: Endocrine: Denies cold intolerance and Reports fatigue Hematologic/Lymphatic: Hematologic/Lymphatic: Denies easy bleeding and Denies easy bruising Allergic/Immunologic: Allergic/Immunologic: Denies wheezing PMFSH Social History Social History Social History: The patient is never and has no children. 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 She lives at [facility], and has been there for a couple of months since she started chemotherapy. Her wnitpo-ip-cka, Sofia, is her surrogate decision maker. She wishes to be a full code. Spiritual care concerns: No Agree to blood products: Yes Meds Home Medications and Allergies Home Medications Medication Instructions Recorded Confirmed Type atorvastatin 10 mg tablet 10 mg PO
--- NOTE | 2019-07-31 11:37 | WPDANESEPPF ---
Anes - Initial Pre Proc Eval Procedure: Operation Date: 07/31/19 12:00 Proposed Procedures p Left Breast Mastectomy, [place] Lymph Node Injection, [place] Lymph Node Excisional Biopsy, Possible Left Axillary Lymph Node Dissection - Raymundo Royal MD Date/Time: 07/31/19 11:37 Surgeon: Raymundo Royal MD Pre Op Diagnosis: Left Breast CA Patient Data Age: 69 Gender: F Height: 5 ft 6 in Weight: 107.3 kg Last Vital Signs Temp 97.6 F 07/31/19 10:00 Pulse 95 07/31/19 10:49 Resp 20 07/31/19 10:00 BP 88/54 L 07/31/19 10:49 Pulse Ox 94 07/31/19 10:00 Allergies Allergy/AdvReac Type Severity Reaction Status Date / Time amoxicillin Allergy Severe DIFFICULTY Verified 07/31/19 10:11 BREATHING/HIVES Iodinated Contrast Media Allergy Severe Anaphylaxis Verified 07/31/19 10:11 methotrexate Allergy Severe Hives Verified 07/31/19 10:11 Penicillins Allergy Severe DIFFICULTY Verified 07/31/19 10:11 BREATHING/HIVES tetracycline Allergy Severe Hives Verified 07/31/19 10:11 adhesive tape AdvReac Intermediate SKIN PEELS Verified 07/31/19 10:11 OFF codeine AdvReac Mild NAUSEA/VOMI Verified 07/31/19 10:11 TING furosemide AdvReac Unknown DOESN'T Verified 07/31/19 10:11 REMEMBER ioversol AdvReac Unknown DOESN'T Verified 07/31/19 10:11 REMEMBER Home Medications Medication Instructions Recorded Confirmed Type atorvastatin 10 mg tablet 10 mg PO DAILY #30 tablet 03/29/19 07/31/19 Rx nitroglycerin 0.4 mg sublingual 0.4 mg SUBLINGUAL Q5M PRN #25 03/29/19 07/31/19 Rx tablet tablet rivaroxaban 20 mg tablet 20 mg PO DAILY #30 tablet 03/29/19 07/31/19 Rx celecoxib [Celebrex] 200 mg PO DAILY PRN 04/12/19 07/31/19 History donepezil 10 mg PO HS 04/12/19 07/31/19 History levothyroxine 224 mcg PO DAILY 04/12/19 07/31/19 History albuterol sulfate 90 mcg/actuation 1 inhalation INHALATION Q4H PRN 04/26/19 07/31/19 Rx aerosol inhaler #6.7 gm potassium chloride 20 mEq 20 meq PO DAILY 05/01/19 07/31/19 History tablet,extended release(part/cryst) blood sugar diagnostic #100 each 05/03/19 Rx memantine 5 mg tablet 5 mg PO BID #60 tablet 06/13/19 07/31/19 Rx indapamide 1.25 mg tablet 1.25 mg PO DAILY #30 tablet 06/26/19 07/31/19 Rx anastrozole 1 mg PO DAILY 07/24/19 07/31/19 History ferrous sulfate 325 mg PO DAILY 07/24/19 07/31/19 History insulin lispro [Humalog U-100 0.79 sliding scale dose SUBCUT 07/24/19 07/31/19 History Insulin] USEASDIRECTD prednisone 50 mg PO DAILY 07/24/19 07/31/19 History tramadol 50 mg PO Q6H PRN 07/24/19 07/31/19 History Laboratory Tests 07/31/19 07/31/19 09:41 09:48 PT 11.7 Seconds D Seconds (11.1-14.7) INR 0.9 APTT 24.2 SECONDS SECONDS (22.3-36.8) POC Capillary Glucose 95 mg/dl mg/dl (65-105) Patient hx anesthesia problems: none Family hx anesthesia problems: none PMFSH Social History Social History Social History: The patient is never and has no children. 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 She lives at [facility], and has been there for a couple of months since she started chemotherapy. Her pjihfs-sg-nwi, Sofia, is her surrogate decision maker. She wishes to be a full code. Spiritual care concerns: No Agree to blood products: Yes Anes - Eval Final PreProcedure Day of Procedure 07/31/19 11:37 Patient weight: obese Heart: regular rate and rhythm Lungs: clear to auscultation Airway: Mallampati scale class III Neurological: alert and oriented Last oral intake: >/= 8 hours ASA classification: IV Emergent: no Anesthetic plan: proceed Anesthesia type and monitoring: general ETT and standard monitoring Other findings: echo from 2018 reveals EFD 65 per cent; no other recent report on chart. Informed Consent: The patient's anesthetic plan and its attendant risks and benefits were discussed with the patient/family/POA. Questions were solic
--- NOTE | 2019-07-31 12:04 | SUR.PREOP ---
1145-RETURNED FROM NUCLEAR MEDICINE AREA.
[2019-07-31] MEDS: CLINDAMYCIN 900 MG/NS 50 ML 900 MG/50 ML PIGGYBACK 50 MG IVPB (12:45)
[2019-07-31] MEDS: ISOSULFAN BLUE 1% INJ 5 ML VIAL SUB-Q (13:43)
[2019-07-31 16:07] LABS: Glucose Point of Care 116 (65-105)
--- NOTE | 2019-07-31 16:47 | SUR.PHASEI ---
1645 DR SOSA AT BEDSIDE. AWARE OF HR 108-120 & BP 103/67. AWARE PT GOING TO BE ON TELEMETRY ON THE FLOOR. NO NEW ORDERS RECEIVED. OKAY TO DISCHARGE PT TO ROOM.
--- NOTE | 2019-07-31 17:33 | ADMGEN ---
This patient, Hoa Balbuena, was admitted to 2 Medical Room 240-01. Patient/family oriented to hospital policies and general routines including ID bracelet, bed and alarms, visiting hours, pain management, procedures, bathroom and other care routines, personal items, smoking policy, room service/diet, and visiting hours. Valuables list has been completed. Information on how to activate the Rapid Response Team has been discussed. Patient/Family are encouraged to report perceived risks to care and to ask questions if they do not understand what they are told or what they should do.
--- NOTE | 2019-07-31 18:38 | PM.PROC ---
Procedure Note - Detailed Date of procedure: 07/31/19 Pre-op diagnosis: Left Breast CA Post-op diagnosis: same Procedure performed: Left breast Mastectomy Left sentinel lymph node biopsy times 1 Left non-sentinel lymph node biopsy of palpable node. injection of Lymphazurin blue (for identification sentinel lymph) Description of procedure: The patient was seen pre-operatively in the holding area, and I marked the patient on the operative side. Today it was the left. She was brought to the operating room and anesthesia delivered. Before the usual prep and drape I prepped her nipple area with Betadine and then using sterile technique injected 1 cc of Lymphazurin blue periareolar at the 12:00 p.m., 2:00 a.m., 4:00 a.m., 6:00 a.m., and 10:00 a.m. positions on the left. 1 cc was placed with each ejection. The left breast was then massaged for 1 minutes. She was then prepped and draped in the usual sterile fashion. The arm on this side was placed into a stockinette and wrapped with a Coband. It was then draped into the field sterile. A timeout was performed confirming patient and site of surgery. Then because I was planning a left-sided mastectomy we marked out the skin lines of the proposed excision both superiorly and inferiorly. Following this I used a 10 blade knife to make the incision along the entire upper margin of the mastectomy site. Following this Bovie cautery was used to raise superior flap thus exposing laterally the area where we needed to do the sentinel lymph node biopsy. Once the entire upper flap was adequately raised down to pectoralis major muscle we carefully rotated over the breast tissue away from the edge of the pectoralis major and brought the navigator probe onto the field. The axillary tissues tissues were dissected toward the area of the second intercostal-brachail nerve with electrocautery and the clavipectoral fascia was incised with electrocautery. Using the sentinel lymph node Navigator probe, the sentinel lymph node was identified and the count in vivo was have maximum bout 220 directly over the node in situ. I was able to see some blue dye in the lymphatics leading to this note. As I dissected out it appeared that node was enlarged probably 2 x 1 cm in size. . I carefully dissected out what appeared to be an elarged lymph node that was marked with high counts and also with a small blue green lymphatic heading directly to it. There was some blue green dye that appeared to be in the lymph node and an approximately 2 x 1 cm area of the axillary tissue removed. Then an ex vivo 10- second count of 6621 was recorded. The count in the axilla after removing this lymph node was between 4 and 22, for background noise. The sentinel lymph node was sent fresh for pathologic evaluation. No further blue or hot lymph nodes were identified. However, with careful palpation I could feel another lymph nodes slightly above and medial to the 1 removed as the sentinel lymph node. I carefully grasped this with an Allis and dissected out in a similar fashion using clips and cautery. Placing the Navigator probe directly on it it did not have any counts more than 20. I felt it was a non sentinel lymph node but we did send it for pathology fresh. As we were waiting pathology report on the touch preps from the son lymph node I proceeded to make the incision and raised the inferior flap for the mastectomy. This was done in standard fashion with Bovie cautery. We waited to hear from pathology. First we heard that touch preps on the sentinel lymph node were negative. Because of this I felt I did not need to do a axillary dissection. We then proceeded were obtaining the breast off the chest wall from medial to lateral taking the anterior pectoralis fascia with the breast tissue. Laterally came through the axillary tissue about the level where we did the sentinel lymph node biopsy. We took a good amount of fatty tissue laterally but
[2019-07-31] MEDS: MEMANTINE 5 MG TABLET PO (19:03)
[2019-07-31 19:06] LABS: Glucose Point of Care 173 (65-105)
[2019-07-31] MEDS: CIPROFLOXACIN 500 MG TAB PO (20:27)
[2019-07-31] MEDS: SENNA/DOCUSATE SODIUM TABLET 2 TAB PO (20:27)
[2019-07-31] MEDS: DONEPEZIL HCL 10 MG TABLET PO (20:27)
[2019-07-31 20:59] LABS: Glucose Point of Care 241 (65-105)
--- NOTE | 2019-07-31 21:00 | P.CONS_ITS ---
Assessment and Plan Assessment and plan (1) Cancer of left breast: Qualifiers: Breast location: unspecified site of breast Estrogen receptor status: unspecified Patient sex: female Qualified Code(s): C50.912 - Malignant neoplasm of unspecified site of left female breast Code(s): C50.912 - Malignant neoplasm of unspecified site of left female breast Status: Acute Assessment and Plan: * Postoperative day #0, total left mastectomy with sentinel lymph node injection. * Touch prep of sentinel lymph node was negative for malignancy. * Wound care and drain management per Dr. Royal. (2) Obstructive sleep apnea on CPAP: Code(s): G47.33 - Obstructive sleep apnea (adult) (pediatric); Z99.89 - Dependence on other enabling machines and devices Status: Acute Assessment and Plan: * Hospital CPAP will be provided for the patient during her stay. (3) COPD with emphysema: Code(s): J43.9 - Emphysema, unspecified Status: Acute Assessment and Plan: * No acute issues. * Continue maintenance inhalers. (4) Insulin dependent type 2 diabetes mellitus: Code(s): E11.9 - Type 2 diabetes mellitus without complications; Z79.4 - party plan dealer (current) use of insulin Status: Acute Assessment and Plan: * Continue basal insulin and check hemoglobin A1c. * Initiate sliding scale insulin, Accu-Cheks, and hypoglycemic protocol. (5) jail current use of anticoagulant: Code(s): Z79.01 - jail (current) use of anticoagulants Status: Acute Assessment and Plan: * Patient on Xarelto for paroxysmal atrial fibrillation and history of DVT/PE. * Plan to resume Xarelto in a.m. if okay with Dr. Royal. (6) Hypertension: Code(s): I10 - Essential (primary) hypertension Status: Acute Assessment and Plan: * Blood pressures have been a bit low postoperatively. * For now I think I am going to hold her antihypertensives. * Continue to monitor blood pressures closely. (7) Bullous pemphigoid: Code(s): L12.0 - Bullous pemphigoid Status: Acute Assessment and Plan: * She is on daily prednisone. Additional Plan Thank you for allowing us to participate in this patient's care. Please do not hesitate to contact us with any questions. Supervising physician for this medical consultation is Dr. Jose Her. HPI Data of Consult Date/Time: 07/31/19 22:00 Requesting Physician: Raymundo Royal MD Primary Care Provider: Bryan Valiente MD Consult Narrative Narrative: Hoa Balbuena is a very pleasant 69-year-old female whom the hospitalist service has been consulted for medical management of her chronic medical conditions. Her medical history is significant for left breast cancer, paroxysmal atrial fibrillation on long-term anticoagulation, history of DVT and pulmonary embolism, bullous pemphigoid on daily prednisone, chronic kidney disease stage 3, rheumatoid arthritis, type 2 diabetes mellitus, hypertension, hyperlipidemia, hypothyroidism, and obstructive sleep apnea. She was diagnosed with poorly differentiated invasive justa
--- NOTE | 2019-07-31 21:00 | WPDCN ---
Assessment and Plan Assessment and plan (1) Cancer of left breast: Qualifiers: Breast location: unspecified site of breast Estrogen receptor status: unspecified Patient sex: female Qualified Code(s): C50.912 - Malignant neoplasm of unspecified site of left female breast Code(s): C50.912 - Malignant neoplasm of unspecified site of left female breast Status: Acute Assessment and Plan: Postoperative day #0, total left mastectomy with sentinel lymph node injection. Touch prep of sentinel lymph node was negative for malignancy. Wound care and drain management per Dr. Royal. (2) Obstructive sleep apnea on CPAP: Code(s): G47.33 - Obstructive sleep apnea (adult) (pediatric); Z99.89 - Dependence on other enabling machines and devices Status: Acute Assessment and Plan: Hospital CPAP will be provided for the patient during her stay. (3) COPD with emphysema: Code(s): J43.9 - Emphysema, unspecified Status: Acute Assessment and Plan: No acute issues. Continue maintenance inhalers. (4) Insulin dependent type 2 diabetes mellitus: Code(s): E11.9 - Type 2 diabetes mellitus without complications; Z79.4 - operation agent (current) use of insulin Status: Acute Assessment and Plan: Continue basal insulin and check hemoglobin A1c. Initiate sliding scale insulin, Accu-Cheks, and hypoglycemic protocol. (5) halfway current use of anticoagulant: Code(s): Z79.01 - operation agent (current) use of anticoagulants Status: Acute Assessment and Plan: Patient on Xarelto for paroxysmal atrial fibrillation and history of DVT/PE. Plan to resume Xarelto in a.m. if okay with Dr. Royal. (6) Hypertension: Code(s): I10 - Essential (primary) hypertension Status: Acute Assessment and Plan: Blood pressures have been a bit low postoperatively. For now I think I am going to hold her antihypertensives. Continue to monitor blood pressures closely. (7) Bullous pemphigoid: Code(s): L12.0 - Bullous pemphigoid Status: Acute Assessment and Plan: She is on daily prednisone. Additional Plan Thank you for allowing us to participate in this patient's care. Please do not hesitate to contact us with any questions. Supervising physician for this medical consultation is Dr. Jose Her. HPI Data of Consult Date/Time: 07/31/19 22:00 Requesting Physician: Raymundo Royal MD Primary Care Provider: Bryan Valiente MD Consult Narrative Narrative: Hoa Balbuena is a very pleasant 69-year-old female whom the hospitalist service has been consulted for medical management of her chronic medical conditions. Her medical history is significant for left breast cancer, paroxysmal atrial fibrillation on long-term anticoagulation, history of DVT and pulmonary embolism, bullous pemphigoid on daily prednisone, chronic kidney disease stage 3, rheumatoid arthritis, type 2 diabetes mellitus, hypertension, hyperlipidemia, hypothyroidism, and obstructive sleep apnea. 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 She had neoadjuvant chemotherapy with TCH and Perjeta which was started 02/19/2019. After 3 cycles of chemotherapy, she was admitted to the hospital with sepsis secondary to urinary tract infection and her chemotherapy was placed on hold thereafter. She that time she been [place]
[2019-08-01] VITALS (16 sets, daily range): BP systolic 92–114; BP diastolic 58–74; PULSE 64–92; RESP 15–18; TEMP 36.2–36.7; O2SAT 93–98; BMI 38.2
[2019-08-01 05:01] LABS: Basophils Percent Auto 0.2 % (0.2-1.2); Eosinophils Percent Auto 0.2 % (0-4.4); Hematocrit 32.3 % (37.0-47.0); Hemoglobin 10.3 g/dL (12.0-15.0); Immature Granulocyte Absolute 0.02 K/mm3 (0.00-0.031); Immature Granulocyte Percent A 0.3 % (0-0.5); Lymphocytes Absolute Auto 0.81 K/mm3 (0.9-3.2); Lymphocytes Percent Auto 12.9 % (18.3-44.2); Mean Corpuscular HGB Conc 31.9 g/dl (32-36); Mean Corpuscular Hemoglobin 29.5 pg (26-34); Mean Corpuscular Volume 92.6 fl (80-100); Mean Platelet Volume 10.6 fl (7.4-10.4); Monocytes Absolute Auto 0.6 K/mm3 (0.1-0.6); Monocytes Percent Auto 8.8 % (2.6-8.5); Neutrophils Absolute Auto 4.9 K/mm3 (1.3-6.7); Neutrophils Percent Auto 77.6 % (45.5-73.1); Platelet Count Result 192 k/mm3 (150-375); Red Blood Count 3.49 M/mm3 (4.2-5.4); Red Cell Distribution Width 13.4 % (11.5-14.5); White Blood Count 6.3 K/mm3 (4.5-10.0)
[2019-08-01 05:11] LABS: Hemoglobin A1C 6.5 % (<5.7)
[2019-08-01 05:17] LABS: Blood Urea Nitrogen 28 mg/dL (7-17); Calcium 8.7 mg/dL (8.4-10.2); Carbon Dioxide 23 mmol/L (22-30); Chloride 106 mmol/L (98-107); Estimated CRCL calculation 44 ml/min; Estimated Glomerular Filt Rate 40; Glucose 107 mg/dL (65-105); Potassium 4.4 mmol/L (3.4-5.0); Sodium 134 mmol/L (137-145)
[2019-08-01] MEDS: LEVOTHYROXINE SODIUM 112 MCG TABLET 224 MCG PO (05:58)
[2019-08-01 08:35] LABS: Glucose Point of Care 103 (65-105)
--- NOTE | 2019-08-01 08:41 | PM.IMPN ---
Progress Note: A&P Assessment and Plan (1) Cancer of left breast: Qualifiers: Breast location: unspecified site of breast Estrogen receptor status: unspecified Patient sex: female Qualified Code(s): C50.912 - Malignant neoplasm of unspecified site of left female breast Code(s): C50.912 - Malignant neoplasm of unspecified site of left female breast Status: Acute Assessment and Plan: Postoperative day #1, total left mastectomy with sentinel lymph node injection. Touch prep of sentinel lymph node was negative for malignancy. Pt doing well post operatively Wound care and drain management per Dr. Royal. (2) Obstructive sleep apnea on CPAP: Code(s): G47.33 - Obstructive sleep apnea (adult) (pediatric); Z99.89 - Dependence on other enabling machines and devices Status: Acute Assessment and Plan: Hospital CPAP will be provided for the patient during her stay. (3) COPD with emphysema: Code(s): J43.9 - Emphysema, unspecified Status: Acute Assessment and Plan: No acute issues. Continue maintenance inhalers. (4) Insulin dependent type 2 diabetes mellitus: Code(s): E11.9 - Type 2 diabetes mellitus without complications; Z79.4 - nursing home (current) use of insulin Status: Acute Assessment and Plan: A1c 6.5. BGL 103 this morning Continue basal insulin Continue sliding scale insulin, Accu-Cheks, and hypoglycemic protocol. 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 Discussed with Surgical team and plan to resume Xarelto tomorrow a.m. Continue Lovenox for DVT ppx today; d/c tomorrow (6) Hypertension: Code(s): I10 - Essential (primary) hypertension Status: Acute Assessment and Plan: Blood pressures have been a bit low postoperatively. Will hold her antihypertensives for now; likely resume at discharge should she stay another night Continue to monitor blood pressures closely. (7) Bullous pemphigoid: Code(s): L12.0 - Bullous pemphigoid Status: Acute Assessment and Plan: She is on daily prednisone. Discussed with Surgical team and will continue her home presnisone. Will hold off on stress hydrocortisone at this moment; consider if status changes Additional Plan Thank you for allowing us to participate in this patient's care. Please do not hesitate to contact us with any questions. Subjective Date/time seen: 08/01/19 08:41 This is a Hospitalist Consult Progress Note Interval history: Patient is a 69 yo F with history of left breast cancer, paroxysmal atrial fibrillation on long-term anticoagulation, history of DVT and pulmonary embolism, bullous pemphigoid on daily prednisone, chronic kidney disease stage 3, rheumatoid arthritis, type 2 diabetes mellitus, hypertension, hyperlipidemia, hypothyroidism, and obstructive sleep apnea who is here for left mastectomy (POD1) with sentinel lymph node biopsy; Hospitalist service has been consulted for medical management of other comorbid conditions. Patient states she is doing well today. Her left chest pain is there but not unreasonable today. She has no other complaints for me today. She is tolerating her diet well. States she may have had a small BM. Denies f/c/s,headaches, dizziness, lightheadedness, palpitations, sob/cough, n/v/d/c, abd pain, dysuria, hematuria, cloudy urine, calf pain/swelling.
[2019-08-01] MEDS: ATORVASTATIN 10 MG TABLET PO (09:19)
[2019-08-01] MEDS: ANASTROZOLE (*CHEMO) 1 MG TABLET PO (09:19)
[2019-08-01] MEDS: CIPROFLOXACIN 500 MG TAB PO ×2 (09:19→20:57)
[2019-08-01] MEDS: ENOXAPARIN 40 MG/0.4 ML SYRINGE SUB-Q (09:19)
[2019-08-01] MEDS: POTASSIUM CHLORIDE 20 MEQ TABLET.ER PO (09:20)
[2019-08-01] MEDS: MEMANTINE 5 MG TABLET PO ×2 (09:20→16:50)
[2019-08-01] MEDS: predniSONE 10 MG TABLET 50 MG PO (10:15)
--- NOTE | 2019-08-01 10:31 | PM.PNGS ---
Progress Note: A&P Assessment and Plan (1) Cancer of left breast: Qualifiers: Breast location: unspecified site of breast Estrogen receptor status: unspecified Patient sex: female Qualified Code(s): C50.912 - Malignant neoplasm of unspecified site of left female breast Code(s): C50.912 - Malignant neoplasm of unspecified site of left female breast Status: Acute Assessment and Plan: POD1 and patient doing well. Pain well-controlled and tolerating her diet. Continue to monitor SID drain output. Will be discharged home with SID drains and plan to follow-up in [address] Royal to potentially remove the drains. Will plan to look at incision tomorrow. Encouraged increased activity and walking in the halls today. Hopefully, she can be discharged tomorrow if patient continues to do well. (2) Type 2 diabetes mellitus: Qualifiers: Diabetes mellitus halfway insulin use: without machine long goods helper use Diabetes mellitus complication status: with other specified complication Qualified Code(s): E11.69 - Type 2 diabetes mellitus with other specified complication Code(s): E11.9 - Type 2 diabetes mellitus without complications Status: Inactive Assessment and Plan: Hgb A1C on this admission 6.5. Glucose this morning 107. Currently on sliding scale insulin. Hospitalist consulted and help appreciated. (3) Obstructive sleep apnea on CPAP: Code(s): G47.33 - Obstructive sleep apnea (adult) (pediatric); Z99.89 - Dependence on other enabling machines and devices Status: Acute Assessment and Plan: Order in place for home CPAP settings to use while asleep. (4) Urinary tract infection: Onset Date: ~07/31/19 Qualifiers: Urinary tract infection type: site unspecified Hematuria presence: without hematuria Qualified Code(s): N39.0 - Urinary tract infection, site not specified Code(s): N39.0 - Urinary tract infection, site not specified Status: Acute Assessment and Plan: Urine cx growth of Klebsiella pnemoniae sensitive to ciprofloxacin, which is currently prescribed. (5) Morbid obesity with BMI of 40.0-44.9, adult: Code(s): E66.01 - Morbid (severe) obesity due to excess calories; Z68.41 - Body mass index (BMI) 40.0-44.9, adult Status: Acute (6) Current chronic use of systemic steroids: Code(s): Z79.52 - long term care pharmacist (current) use of systemic steroids Status: Acute Assessment and Plan: Discussed with Dr. Royal and Hospitalist. Will restart home dose of oral Prednisone today. (7) Essential (primary) hypertension: Code(s): I10 - Essential (primary) hypertension Status: Acute Assessment and Plan: BP 100/58 this morning. Indapamide on hold. Hospitalist help appreciated. (8) Paroxysmal atrial fibrillation: Code(s): I48.0 - Paroxysmal atrial fibrillation Status: Acute Assessment and Plan: Okay to restart the patient's Xarelto tomorrow (post-op day 2). Additional Plan Discussed the patient's case and plan of care with Dr. Royal. Also discussed plan with the Hospitalist. Subjective Subjective Date/Time Seen: 08/01/19 09:31 Post Op day: 1 (Left breast mastectomy with left SLN biopsy x 2) Patient reports: no new complaints and tolerating a regular diet Interval history: Patient sitting up in the chair this morning and reports feeling well. Minimal incisional pain only requiring oral pain medication last night around bedtime, none this morning. She is tolerating her diet with no nausea, vomiting, or bloating. Tolerating activity, but has not walked outside of the room yet. No other complaints at this time. Review of Systems Review of Systems: All systems reviewed & are unremarkable except as noted in HPI and below Constitutional: Constitutional: Reports no additional constitutional complaints, Denies fever(s) and Denies weakness Cardiovascular: Cardiovascular: Reports no ad
[2019-08-01 11:36] LABS: Glucose Point of Care 111 (65-105)
[2019-08-01] MEDS: INSULIN ASPART (*BKC) 100 UNITS/ML SUB-Q (16:50)
[2019-08-01 17:22] LABS: Glucose Point of Care 256 (65-105)
[2019-08-01] MEDS: DONEPEZIL HCL 10 MG TABLET PO (20:57)
[2019-08-01] MEDS: SENNA/DOCUSATE SODIUM TABLET 2 TAB PO (20:58)
[2019-08-01 21:58] LABS: Glucose Point of Care 224 (65-105)
[2019-08-02] VITALS (8 sets, daily range): BP systolic 119–131; BP diastolic 70–78; PULSE 60–95; RESP 16–18; TEMP 36.1–36.3; O2SAT 95–99
[2019-08-02 05:26] LABS: Hematocrit 30.8 % (37.0-47.0); Hemoglobin 9.8 g/dL (12.0-15.0); Mean Corpuscular HGB Conc 31.8 g/dl (32-36); Mean Corpuscular Volume 91.1 fl (80-100); Mean Platelet Volume 10.7 fl (7.4-10.4); Platelet Count Result 179 k/mm3 (150-375); Red Blood Count 3.38 M/mm3 (4.2-5.4); Red Cell Distribution Width 13.2 % (11.5-14.5); White Blood Count 4.6 K/mm3 (4.5-10.0)
[2019-08-02 05:43] LABS: Blood Urea Nitrogen 28 mg/dL (7-17); Calcium 8.8 mg/dL (8.4-10.2); Carbon Dioxide 27 mmol/L (22-30); Chloride 106 mmol/L (98-107); Estimated CRCL calculation 52 ml/min; Estimated Glomerular Filt Rate 49; Glucose 137 mg/dL (65-105); Potassium 4.3 mmol/L (3.4-5.0); Sodium 137 mmol/L (137-145)
[2019-08-02] MEDS: LEVOTHYROXINE SODIUM 112 MCG TABLET 224 MCG PO (06:23)
[2019-08-02 07:45] LABS: Glucose Point of Care 110 (65-105)
[2019-08-02] MEDS: POTASSIUM CHLORIDE 20 MEQ TABLET.ER PO (07:59)
[2019-08-02] MEDS: predniSONE 10 MG TABLET 50 MG PO (07:59)
[2019-08-02] MEDS: CIPROFLOXACIN 500 MG TAB PO (07:59)
[2019-08-02] MEDS: MEMANTINE 5 MG TABLET PO ×2 (07:59→17:43)
[2019-08-02] MEDS: RIVAROXABAN 20 MG TABLET PO (07:59)
[2019-08-02] MEDS: ANASTROZOLE (*CHEMO) 1 MG TABLET PO (07:59)
[2019-08-02] MEDS: ATORVASTATIN 10 MG TABLET PO (07:59)
--- NOTE | 2019-08-02 08:29 | PM.IMPN ---
Progress Note: A&P Assessment and Plan (1) Cancer of left breast: Qualifiers: Breast location: unspecified site of breast Estrogen receptor status: unspecified Patient sex: female Qualified Code(s): C50.912 - Malignant neoplasm of unspecified site of left female breast Code(s): C50.912 - Malignant neoplasm of unspecified site of left female breast Status: Acute Assessment and Plan: Postoperative day #2, total left mastectomy with sentinel lymph node injection. Touch prep of sentinel lymph node was negative for malignancy. Pt doing well post operatively Wound care and drain management per Dr. Royal. (2) Obstructive sleep apnea on CPAP: Code(s): G47.33 - Obstructive sleep apnea (adult) (pediatric); Z99.89 - Dependence on other enabling machines and devices Status: Acute Assessment and Plan: Hospital CPAP will be provided for the patient during her stay. (3) COPD with emphysema: Code(s): J43.9 - Emphysema, unspecified Status: Acute Assessment and Plan: No acute issues. Continue maintenance inhalers. (4) Insulin dependent type 2 diabetes mellitus: Code(s): E11.9 - Type 2 diabetes mellitus without complications; Z79.4 - nursing home (current) use of insulin Status: Acute Assessment and Plan: A1c 6.5. BGL 110 this morning Continue basal insulin Continue sliding scale insulin, Accu-Cheks, and hypoglycemic protocol. 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 Discussed with Surgical team and plan to resume Xarelto today Discontinue dvt ppx 40 mg Lovenox today (6) Hypertension: Code(s): I10 - Essential (primary) hypertension Status: Acute Assessment and Plan: Blood pressures improved to 130s sys this morning Will resume antihypertensives at discharge (7) Bullous pemphigoid: Code(s): L12.0 - Bullous pemphigoid Status: Acute Assessment and Plan: She is on daily prednisone. Discussed with Surgical team and will continue her home prednisone Additional Plan Thank you for allowing us to participate in this patient's care. Please do not hesitate to contact us with any questions. Subjective Date/time seen: 08/02/19 08:29 This is a Hospitalist Consult Progress Note Interval history: Patient is a 69 yo F with history of left breast cancer, paroxysmal atrial fibrillation on long-term anticoagulation, history of DVT and pulmonary embolism, bullous pemphigoid on daily prednisone, chronic kidney disease stage 3, rheumatoid arthritis, type 2 diabetes mellitus, hypertension, hyperlipidemia, hypothyroidism, and obstructive sleep apnea who is here for left mastectomy (POD2) with sentinel lymph node biopsy; Hospitalist service has been consulted for medical management of other comorbid conditions. Patient states she is doing well again today. Her chest pain is very reasonable today. She has no other complaints for me today. She is tolerating her diet well. States she had a small BM. Denies f/c/s,headaches, dizziness, lightheadedness, palpitations, sob/cough, n/v/d/c, abd pain, dysuria, hematuria, cloudy urine, calf pain/swelling. Review of Systems Review of Systems: All systems reviewed & are unremarkable except as noted in HPI and below Exam Narrative: Exam Narrative: Patient sitting upright in bed at time of visit Const: General: cooperat
[2019-08-02 12:02] LABS: Glucose Point of Care 165 (65-105)
--- NOTE | 2019-08-02 13:54 | PM.DS ---
DS: Admitting Diagnosis Admitting Diagnosis Admitting Diagnosis: Left-sided breast cancer Insulin dependent type 2 DM HTN COPD with emphysema Bullous pemphigoid Chronic anticoagulation therapy Paroxysmal atrial fibrillation Protein calorie malnutrition KURT on CPAP Morbid obesity Hyperlipidemia Chronic steroid use DS: Discharge Diagnosis Discharge Diagnosis (1) Cancer of left breast: Qualifiers: Breast location: unspecified site of breast Estrogen receptor status: unspecified Patient sex: female Qualified Code(s): C50.912 - Malignant neoplasm of unspecified site of left female breast Code(s): C50.912 - Malignant neoplasm of unspecified site of left female breast Status: Acute (2) Insulin dependent type 2 diabetes mellitus: Code(s): E11.9 - Type 2 diabetes mellitus without complications; Z79.4 - joint terminal attack controller (current) use of insulin Status: Acute (3) COPD with emphysema: Code(s): J43.9 - Emphysema, unspecified Status: Acute (4) joint terminal attack controller current use of anticoagulant: Code(s): Z79.01 - joint terminal attack controller (current) use of anticoagulants Status: Acute (5) Paroxysmal atrial fibrillation: Code(s): I48.0 - Paroxysmal atrial fibrillation Status: Acute (6) Bullous pemphigoid: Code(s): L12.0 - Bullous pemphigoid Status: Acute (7) Current chronic use of systemic steroids: Code(s): Z79.52 - joint terminal attack controller (current) use of systemic steroids Status: Acute (8) Essential (primary) hypertension: Code(s): I10 - Essential (primary) hypertension Status: Acute (9) Mixed hyperlipidemia: Code(s): E78.2 - Mixed hyperlipidemia Status: Acute (10) Morbid obesity with BMI of 40.0-44.9, adult: Code(s): E66.01 - Morbid (severe) obesity due to excess calories; Z68.41 - Body mass index (BMI) 40.0-44.9, adult Status: Acute (11) Obstructive sleep apnea on CPAP: Code(s): G47.33 - Obstructive sleep apnea (adult) (pediatric); Z99.89 - Dependence on other enabling machines and devices Status: Acute (12) Protein calorie malnutrition: Code(s): E46 - Unspecified protein-calorie malnutrition Status: Acute DS: Summary Hospital Course Reason for hospitalization: Hoa Balbuena is a 69 year old female who was seen by Dr. Royal as an outpatient for re-evaluation and to discuss a left breast mastectomy with sentinel lymph node biopsy. 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 ER [place] positive, HER-2/mónica positive, with Ki-67 of 30%. Patient was on noeadjuvanct chemotherapy with TCH and Perjeta started on 02/19/19. Patient received cycle 3 of chemotherapy on 04/03/2019 and she was admitted to the hospital with nausea, vomiting, diarrhea, and was diagnosed to have UTI and sepsis. Chemotherapy was placed on hold until surgery is complete. She has been continued on Arimidex 1 mg once a day through the problem but now presents for surgical intervention. Hospital Course: The patient was admitted to the hospital following surgery by Dr. Royal on 08/02/19 for monitoring and post-op management. She had a left breast mastectomy, left sentinel lymph node biopsy x 1, left non-sentinel lymph node biopsy of palpable node, and injection of Lymphazurin blue. 2 SID drains were placed intra-operatively (see operative report for details). Hospitalist was consulted post-op for medical management. Initially, the patient had some low blood pressures post-operatively that remained stable, but her anti-hypertensives were held while inpatient. Last BP was 119/70. She was instructed by the Hospitalist to restart her medication tomorrow and monitor BP after discharge. Her Xarelto was restarted this morning (POD2) with the direction of Dr. Royal.Other home medications were restarted by the medical service. Pain control has been good after surgery. SID drains
[2019-08-02 15:59] LABS: Add Urine Microscopic? YES; Appearance Urine Clear (Clear); Bilirubin Urine Negative (Negative); Blood Urine Negative (Negative); Color Urine Straw (Yellow); Glucose Urine UA 3+ mg/dL (Negative); Ketones Urine Negative (Negative); Leukocyte Esterase Ur Negative LEU/UL (Negative); Nitrate Urine Negative (Negative); Protein Urine Negative (Negative); RBC Urine 0-2 /hpf (0-2); Specific Grav Ur 1.015 (1.001-1.035); Squamous Epithelial Cell Urine Rare /hpf (Few); Urobilinogen Urine Negative mg/dL (<2.0); WBC Urine 0-3 /hpf
[2019-08-02 16:40] LABS: Glucose Point of Care 242 (65-105)
[2019-08-02] MEDS: INSULIN ASPART (*BKC) 100 UNITS/ML SUB-Q (17:42)
== END 2019-08-02 18:50 | DRG 580 ==
LOC: ANH2MED 17:11
PROVIDERS: Physician Assistant; Admitting Provider Surgery; PCP Family Medicine; Visit Provider Surgery
PROC: 07B60ZX Excision of Left Axillary Lymphatic, Open Approach, Diagnostic (ICD-10-PCS; principal; 2019-07-31 12:00)
DX: C50.912 Malignant neoplasm of unspecified site of left female breast (principal); N39.0 Urinary tract infection, site not specified; E46 Unspecified protein-calorie malnutrition; Z68.41 Body mass index [BMI] 40.0-44.9, adult; L12.0 Bullous pemphigoid; I12.9 Hypertensive chronic kidney disease with stage 1 through stage 4 chronic kidney disease, or unspecified chronic kidney disease; D63.8 Anemia in other chronic diseases classified elsewhere; E11.22 Type 2 diabetes mellitus with diabetic chronic kidney disease; N18.3 Chronic kidney disease, stage 3 (moderate); I48.0 Paroxysmal atrial fibrillation; B96.1 Klebsiella pneumoniae [K. pneumoniae] as the cause of diseases classified elsewhere; Z17.0 Estrogen receptor positive status [ER+]; E66.01 Morbid (severe) obesity due to excess calories; J43.9 Emphysema, unspecified; G47.33 Obstructive sleep apnea (adult) (pediatric); E78.5 Hyperlipidemia, unspecified; E03.9 Hypothyroidism, unspecified; M06.9 Rheumatoid arthritis, unspecified; Z79.01 Long term (current) use of anticoagulants; Z79.4 Long term (current) use of insulin; Z79.52 Long term (current) use of systemic steroids; Z79.899 Other long term (current) drug therapy; Z86.711 Personal history of pulmonary embolism; Z86.718 Personal history of other venous thrombosis and embolism; Z87.440 Personal history of urinary (tract) infections; Z92.21 Personal history of antineoplastic chemotherapy; Z99.89 Dependence on other enabling machines and devices
CPT/HCPCS: 36415; 38792; 80048; 80053; 81001; 83036; 85025; 85027; 85610; 85730; 86850; 86900; 86901; 87077; 87086; 87088; 87186; 88305; 88307; 88333; 93005; A9270; A9520; C1713; J0330; J1100; J1650; J1720; J1815; J2370; J2405; J2704; J3010; J7120; J7512

== ENCOUNTER 2019-09-11 12:10 | Outpatient (CLI) | payer MEDICARE, SELFPAY ==
--- NOTE | 2019-09-11 | ECHO_ITS ---
Patient Info Name: Hoa Balbuena Age: 69 years : 1950 Gender: Female Ht: 66 in Wt: 234 lbs BSA: 2.27 m2 HR: 105 bpm BP: 110 / 86 mmHg Heart Rhythm: Tachycardia Technical Quality: Fair Exam Date: 09/11/2019 12:57 PM Exam Location: [facility] Patient Status: Outpatient Admit Date: 09/11/2019 Staff Ordering Physician: Arvin Abraham MD Marketing Operations Analyst: Jaguar Tanner RDCS Attending Provider: Arvin Abraham MD Referring Physician: Leigh BROOKS; Exam Type: CA echo doppler color flow Study Info Indications Z01.818 - Encounter for other preprocedural examination Complete two-dimensional, color flow and Doppler transthoracic echocardiogram is performed. Strain analysis performed. History/Risk Factors Breast cancer s/p left mastectomy. Summary 1. Left ventricular chamber size, wall thickness, systolic and diastolic function are normal with no regional wall motion abnormalities with measured ejection fraction of 69% by the biplane method. However, the average global longitudinal strain is -14%, mildly decreased, suggesting early systolic dysfunction. 2. Left atrial chamber dimension is mildly enlarged. 3. There is mild aortic atherosclerosis. 4. Tachycardia, probably sinus tachycardia, heart rate 90-120 ppm. Left Ventricle Left ventricular chamber dimension is normal. Left ventricular systolic function is normal, estimated at 65-70%. There is no increased left ventricular wall thickness. Left ventricular septal wall motion is normal. The left ventricular diastolic function is normal. E/e' 6.8 is mildly elevated. Left ventricular chamber size, wall thickness, systolic and diastolic function are normal with no regional wall motion abnormalities with measured ejection fraction of 69% by the biplane method. However, the average global longitudinal strain is -14%, mildly decreased, suggesting early systolic dysfunction. Right Ventricle Right ventricular chamber dimension is normal. Right ventricular systolic function is normal. Left Atria Left atrial chamber dimension is mildly enlarged. Right Atria Right atrial chamber dimension is normal. Aortic Valve The aortic valve is trileaflet. There is mild aortic valve sclerosis. There is no aortic valve stenosis. There is no aortic valve regurgitation. Pulmonic Valve The pulmonic valve is normal. There is no pulmonic valve stenosis. There is no pulmonic regurgitation. Mitral Valve The mitral valve has normal leaflets. There is no mitral valve stenosis. There is no mitral valve regurgitation. Tricuspid Valve The tricuspid valve leaflets are normal. There is no significant tricuspid valve stenosis. There is trace tricuspid valve regurgitation. No pulmonary hypertension, estimated pulmonary arterial systolic pressure is Empty. Pericardium/Pleural The pericardium appears normal. There is no pericardial effusion. Inferior Vena Cava Normal inferior vena cava with >50% collapse upon inspiration consistent with Empty right atrial pressure, 5 mmHg. Aorta The aortic root size at the sinus of Valsalva is normal. The prox ascending aorta size is normal. There is mild aortic atherosclerosis. Left Ventricular Outflow Tract Name Value Normal LVOT 2D
== END 2019-09-11 12:11 | disposition home or self-care (01) ==
PROVIDERS: PCP Family Medicine; Visit Provider Internal Medicine Hematology & Oncology
DX: Z01.818 Encounter for other preprocedural examination (principal); C50.412 Malignant neoplasm of upper-outer quadrant of left female breast; Z17.0 Estrogen receptor positive status [ER+]
CPT/HCPCS: 93306

== ENCOUNTER 2020-02-12 08:30 | Outpatient (CLI) | payer MEDICARE, SELFPAY ==
--- NOTE | 2020-02-12 | ECHO_ITS ---
Patient Info Name: Hoa Balbuena Age: 70 years : 1950 Gender: Female Ht: 66 in Wt: 255 lbs BSA: 2.38 m2 HR: 93 bpm BP: 110 / 71 mmHg Heart Rhythm: Sinus Rhythm Technical Quality: Fair Exam Date: 02/12/2020 9:25 AM Exam Location: [facility] Patient Status: Outpatient Admit Date: 02/12/2020 Staff Ordering Physician: Arvin Abraham MD Solution Consultant: Jaguar Tanner RDCS Attending Provider: Arvin Abraham MD Referring Physician: Leigh BROOKS; Exam Type: CA echo doppler color flow Study Info Indications C50.412 - Malignant neoplasm of upper-outer quadrant of left female breast Strain analysis performed. Complete two-dimensional, color flow and Doppler transthoracic echocardiogram is performed. Summary 1. Complete two-dimensional, color flow and Doppler transthoracic echocardiogram is performed. 2. Left ventricular chamber dimension is normal. 3. Left ventricular systolic function is normal, estimated at 65-70%. 4. There is mildly increased left ventricular wall thickness. 5. The left ventricular diastolic function is grade I diastolic dysfunction. 6. Global longitudinal strain is abnormal at -15 %. 7. Left atrial chamber dimension is mildly enlarged. Left Ventricle Left ventricular chamber dimension is normal. Left ventricular systolic function is normal, estimated at 65-70%. There is mildly increased left ventricular wall thickness. The left ventricular diastolic function is grade I diastolic dysfunction. Global longitudinal strain is abnormal at -15 %. Right Ventricle Right ventricular chamber dimension is normal. Right ventricular systolic function is normal. Left Atria Left atrial chamber dimension is mildly enlarged. Right Atria Right atrial chamber dimension is normal. Atrial Septum Intact interatrial septum visualized by color flow imaging. Aortic Valve The aortic valve is not well visualized. There is no aortic valve stenosis. There is trace aortic valve regurgitation. Pulmonic Valve The pulmonic valve is not well visualized. There is no pulmonic valve stenosis. There is trace pulmonic regurgitation. Mitral Valve The mitral valve has normal leaflets. There is no mitral valve stenosis. There is trace mitral valve regurgitation. Tricuspid Valve The tricuspid valve leaflets are normal. There is no significant tricuspid valve stenosis. There is trace tricuspid valve regurgitation. Pericardium/Pleural The pericardium appears normal. There is trivial pericardial effusion. Inferior Vena Cava Dilated inferior vena cava with >50% collapse upon inspiration consistent with elevated right atrial pressure, 10 mmHg. Aorta The aortic root size at the sinus of Valsalva is not well visualized. Left Ventricular Outflow Tract Name Value Normal LVOT 2D LVOT Diameter 2.1 cm LVOT Doppler LVOT Peak Gradient 3 mmHg LVOT Mean Gradient 2 mmHg LVOT VTI 19 cm LVOT VTI/AV VTI Ratio 0.7 LVOT Stroke Volume
== END 2020-02-12 08:31 | disposition home or self-care (01) ==
LOC: ANHCARD 08:31
PROVIDERS: PCP Family Medicine; Visit Provider Internal Medicine Hematology & Oncology
DX: C50.412 Malignant neoplasm of upper-outer quadrant of left female breast (principal); Z17.0 Estrogen receptor positive status [ER+]; Z51.11 Encounter for antineoplastic chemotherapy
CPT/HCPCS: 93306

== ENCOUNTER 2020-02-28 10:25 | Outpatient (CLI) | payer MEDICARE, SELFPAY ==
--- NOTE | ~2020-02-28 | MM_ITS ---
EXAMINATION: MM screening betina RT w ashley HISTORY: Screening right mammogram, history of left breast cancer and mastectomy TECHNIQUE: Craniocaudal and mediolateral oblique 3-D tomosynthesis images were obtained and synthetic 2-D images were generated. CAD analysis was submitted and interpreted. COMPARISON: 01/05/2019, 04/23/2016, 10/19/2013 BREAST PARENCHYMAL COMPOSITION: The breasts are almost entirely fatty. FINDINGS: Scattered benign-appearing calcifications are present. There is no evidence of suspicious m ass, calcification, or architectural distortion to suggest malignancy. There has been no suspicious i nterval change. IMPRESSION: 1. No mammographic evidence of malignancy. 2. Recommend routine screening mammography in one year. BI-RADS Category 2: Benign finding(s). Reviewed, dictated and finalized at location A. APIST RRT
== END 2020-02-28 10:26 | disposition home or self-care (01) ==
LOC: ANHIMG 10:26
PROVIDERS: PCP Family Medicine; Visit Provider Surgery
DX: Z12.31 Encounter for screening mammogram for malignant neoplasm of breast (principal)
CPT/HCPCS: 77063; 77067

== ENCOUNTER 2020-05-20 08:42 | Outpatient (CLI) | payer MEDICARE, SELFPAY ==
--- NOTE | 2020-05-20 | ECHO_ITS ---
Patient Info Name: Hoa Balbuena Age: 70 years : 1950 Gender: Female Ht: 66 in Wt: 238 lbs BSA: 2.29 m2 BP: 94 / 68 mmHg Heart Rhythm: Sinus Rhythm Exam Date: 05/20/2020 9:35 AM Exam Location: [facility] Patient Status: Outpatient Admit Date: 05/20/2020 Staff Ordering Physician: Arvin Abraham MD Tape Keller Operator: Mark Daigle, ERICK, RT Attending Provider: Arvin Abraham MD Referring Physician: Leigh BROOKS; Exam Type: CA echo doppler color flow Study Info Indications C50.912 - Malignant neoplasm of unspecified site of left female breast Complete two-dimensional, color flow and Doppler transthoracic echocardiogram is performed. Summary 1. Complete two-dimensional, color flow and Doppler transthoracic echocardiogram is performed. 2. Normal left ventricular size with mild concentric hypertrophy. There is good systolic function of all segments with an ejection fraction of 55%. No segmental wall motion abnormalities. Grade 1 diastolic dysfunction is present. The global longitudinal strain is mildly decreased at -14%, suggesting a degree of systolic dysfunction. 3. No significant valve disease. 4. Normal sinus rhythm. Left Ventricle Left ventricular chamber dimension is normal. Left ventricular systolic function is normal, estimated at 55-60%. There is mildly increased left ventricular wall thickness. Left ventricular septal wall motion is normal. The left ventricular diastolic function is grade I diastolic dysfunction. Global longitudinal strain is mildly elevated at 14 %. Echodense mass in the left ventricular apex which appears to be a partially calcified false tendon, benign. Right Ventricle Right ventricular chamber dimension is normal. Right ventricular systolic function is normal. Left Atria Left atrial chamber dimension is normal. Right Atria Right atrial chamber dimension is normal. Aortic Valve The aortic valve is trileaflet. There is no aortic valve sclerosis. There is no aortic valve stenosis. There is no aortic valve regurgitation. Pulmonic Valve The pulmonic valve is normal. There is no pulmonic valve stenosis. There is no pulmonic regurgitation. Mitral Valve The mitral valve has normal leaflets. There is no mitral valve stenosis. There is trace mitral valve regurgitation. Tricuspid Valve The tricuspid valve leaflets are normal. There is no significant tricuspid valve stenosis. There is no tricuspid valve regurgitation. No pulmonary hypertension, estimated pulmonary arterial systolic pressure is Empty. Pericardium/Pleural The pericardium appears normal. There is no pericardial effusion. Inferior Vena Cava Normal inferior vena cava with >50% collapse upon inspiration consistent with Empty right atrial pressure, Empty. Aorta The aortic root size at the sinus of Valsalva is normal. The prox ascending aorta size is normal. Left Ventricular Outflow Tract Name Value Normal LVOT 2D LVOT Diameter 2.0 cm LVOT Doppler LVOT Peak Gradient 3 mmHg LVOT Mean Gradient 2 mmHg LVOT VTI
== END 2020-05-20 08:43 | disposition home or self-care (01) ==
PROVIDERS: PCP Family Medicine; Visit Provider Internal Medicine Hematology & Oncology
DX: G62.9 Polyneuropathy, unspecified (principal); Z01.818 Encounter for other preprocedural examination; C50.912 Malignant neoplasm of unspecified site of left female breast
CPT/HCPCS: 93306

== ENCOUNTER 2020-08-19 13:36 | Outpatient (CLI) | payer MEDICARE, SELFPAY ==
--- NOTE | 2020-08-19 | ECHO_ITS ---
Patient Info Name: Hoa Balbuena Age: 70 years : 1950 Gender: Female Ht: 66 in Wt: 234 lbs BSA: 2.27 m2 HR: 77 bpm BP: 125 / 78 mmHg Heart Rhythm: Sinus Rhythm Technical Quality: Fair Exam Date: 08/19/2020 2:05 PM Exam Location: [facility] Patient Status: Outpatient Admit Date: 08/19/2020 Staff Ordering Physician: Arvin Abraham MD Supervisory Examiner: Mary Prado RDCS Attending Provider: Arvin Abraham MD Referring Physician: Leigh BROOKS; Exam Type: CA echo doppler color flow Study Info Indications C50.412 - Malignant neoplasm of upper-outer quadrant of left female breast Complete two-dimensional, color flow and Doppler transthoracic echocardiogram is performed. Summary 1. Complete two-dimensional, color flow and Doppler transthoracic echocardiogram is performed. 2. Left ventricular chamber dimension is normal. 3. Left ventricular systolic function is normal, estimated at 55-60%. 4. There is mildly increased left ventricular wall thickness. 5. The left ventricular diastolic function is grade I diastolic dysfunction. 6. Left atrial chamber dimension is mildly enlarged. 7. There is mild mitral valve regurgitation. Left Ventricle Left ventricular chamber dimension is normal. Left ventricular systolic function is normal, estimated at 55-60%. There is mildly increased left ventricular wall thickness. The left ventricular diastolic function is grade I diastolic dysfunction. Right Ventricle Right ventricular chamber dimension is normal. Right ventricular systolic function is normal. Left Atria Left atrial chamber dimension is mildly enlarged. Right Atria Right atrial chamber dimension is normal. Atrial Septum Intact interatrial septum visualized by color flow imaging. Aortic Valve The aortic valve is trileaflet. There is mild aortic valve sclerosis. There is no aortic valve stenosis. There is trace aortic valve regurgitation. Pulmonic Valve The pulmonic valve is normal. There is no pulmonic valve stenosis. There is trace pulmonic regurgitation. Mitral Valve The mitral valve has normal leaflets. There is no mitral valve stenosis. There is mild mitral valve regurgitation. Tricuspid Valve The tricuspid valve leaflets are normal. There is no significant tricuspid valve stenosis. There is trace tricuspid valve regurgitation. Other Findings The measured left ventricular systolic and diastolic dimensions M-mode measurements are inaccurate in this study. Left ventricular size is normal. Pericardium/Pleural The pericardium appears normal. There is trivial pericardial effusion. Inferior Vena Cava Normal inferior vena cava with >50% collapse upon inspiration consistent with normal right atrial pressure, 5 mmHg. Aorta The aortic root size at the sinus of Valsalva is normal. Left Ventricular Outflow Tract Name Value Normal LVOT 2D LVOT Diameter 2.0 cm LVOT Doppler LVOT Peak Gradient 2 mmHg LVOT Mean Gradient 1 mmHg LVOT VTI 18 cm LVOT VTI/AV
== END 2020-08-19 13:37 | disposition home or self-care (01) ==
PROVIDERS: PCP Family Medicine; Visit Provider Internal Medicine Hematology & Oncology
DX: C50.412 Malignant neoplasm of upper-outer quadrant of left female breast (principal); Z17.0 Estrogen receptor positive status [ER+]; I34.0 Nonrheumatic mitral (valve) insufficiency
CPT/HCPCS: 93306

== ENCOUNTER 2020-09-03 14:30 | Emergency (ER) | payer MEDICARE, SELFPAY ==
--- NOTE | ~2020-09-03 | US_ITS ---
EXAMINATION: US venous doppler [facility] DATE: 09/03/2020 15:51 INDICATION: Left lower limb swelling. TECHNIQUE: Grayscale ultrasound images without and with compression and Doppler ultrasound images of the left lower extremity veins were obtained. COMPARISON: Ultrasound 04/13/2019 FINDINGS: The visualized portions of left common femoral vein, profunda (deep) femoral vein, femoral vein, popl iteal vein, peroneal veins, posterior tibial veins, and greater saphenous vein outflow are patent. IMPRESSION: 1. No deep venous thrombosis. Reviewed, dictated and finalized at location A.
--- NOTE | ~2020-09-03 | XR_ITS ---
EXAMINATION: XR tibia fibula LT 2V EXAM DATE: 09/03/2020 15:58 INDICATION: Injury, swelling, posterior ankle. Ankle deformity. TECHNIQUE: Left tibia/fibula frontal and lateral projections obtained and reviewed. Correlation is neville tran to knee examination 07/08/2020 FINDINGS: There is an old left fibular shaft fracture proximally. There is severe knee, and probably moderate ankle primary osteoarthritis. There are no acute tibia/fibula fractures or dislocations ratna ntified. There is no subcutaneous gas. Faint arterial sclerosis. No knee joint effusion. There are no radiopaque foreign bodies. IMPRESSION: Advanced left knee, probably moderate ankle osteoarthritis. Initial encounter. Reviewed, dictated and finalized at location B.
[2020-09-03 15:00] VITALS: BP 123/80; PULSE 134; RESP 17; TEMP 35.7; O2SAT 96
--- NOTE | 2020-09-03 15:04 | ECG_ITS ---
Measurements Intervals [place] Rate: 126 P: -10 [place]: 201 QRS: -26 QRSD: 87 T: -8 QT: 340 QTc: 494 Interpretive Statements SINUS OR ECTOPIC ATRIAL TACHYCARDIA FREQUENT ATRIAL PREMATURE COMPLEXES LOW QRS VOLTAGE IN PRECORDIAL LEADS INFERIOR INFARCT, AGE INDETERMINATE NONSPECIFIC ST & T-WAVE ABNORMALITY- ANTEROLAT/HIGH LAT LEADS ABNORMAL ECG Electronically Signed On 09-03-2020 16:26:22 CDT by Gadiel Marin D.O.
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
[2020-09-03 18:16] VITALS: BP 127/71; PULSE 86; RESP 17; O2SAT 98
[2020-09-03 19:04] VITALS: BP 127/71; PULSE 95; RESP 16; O2SAT 98
== END 2020-09-03 19:05 | disposition home or self-care (01) ==
LOC: ANHED 18:39
PROVIDERS: Emergency Provider Nurse Practitioner; PCP Family Medicine
DX: S93.402A Sprain of unspecified ligament of left ankle, initial encounter (principal); S96.912A Strain of unspecified muscle and tendon at ankle and foot level, left foot, initial encounter; E11.22 Type 2 diabetes mellitus with diabetic chronic kidney disease; I13.0 Hypertensive heart and chronic kidney disease with heart failure and stage 1 through stage 4 chronic kidney disease, or unspecified chronic kidney disease; N18.30 Chronic kidney disease, stage 3 unspecified; I50.30 Unspecified diastolic (congestive) heart failure; J43.9 Emphysema, unspecified; I48.0 Paroxysmal atrial fibrillation; J45.909 Unspecified asthma, uncomplicated; Z85.3 Personal history of malignant neoplasm of breast; Z92.21 Personal history of antineoplastic chemotherapy; E78.5 Hyperlipidemia, unspecified; E03.9 Hypothyroidism, unspecified; G47.33 Obstructive sleep apnea (adult) (pediatric); Z79.01 Long term (current) use of anticoagulants; Z79.84 Long term (current) use of oral hypoglycemic drugs; M05.4 Rheumatoid myopathy with rheumatoid arthritis; Z98.42 Cataract extraction status, left eye; Z98.41 Cataract extraction status, right eye; Z90.12 Acquired absence of left breast and nipple; Z86.010 Personal history of colon polyps; M17.12 Unilateral primary osteoarthritis, left knee; I49.1 Atrial premature depolarization; R94.31 Abnormal electrocardiogram [ECG] [EKG]; V00.838A Other accident with motorized mobility scooter, initial encounter
CPT/HCPCS: 73590; 93005; 93971; 99284

== ENCOUNTER 2020-10-09 09:55 | Outpatient (CLI) | payer MEDICARE, SELFPAY ==
--- NOTE | ~2020-10-09 | DEXA_ITS ---
Bone Density Report Name: Hoa Balbuena Age: 70 Sex: Female Ethnicity: White Date of : 1950 Indication: monitoring treatment; parental hip fracture; height loss; cancer; asthma or emphysema; hysterectomy; rheumatoid arthritis; postmenopausal Referring Provider: Dipika Zamora Study: Bone densitometry was performed. Exam Date: October 09, 2020 Accession number: [id number] Bone Density: Region BMD T-score Z-score Classification AP Spine (L3, L4) 1.165 0.6 3.0 Normal World Health Organization criteria for BMD impression classify patients as: Normal (T-score at or above -1.0), Osteopenia (T-score between -1.0 and -2.5), or Osteoporosis (T-score at or below -2.5). Previous Exams: Region Exam Age BMD T-score BMD Change BMD Change Date g/cm2 vs Baseline vs Previous AP Spine(L3, L4) 10/09/2020 70 1.165 0.6 0.009(0.8%) 0.009(0.8%) 09/02/2011 61 1.157 0.5 *Denotes significance at 95% confidence level, LSC for AP Spine = 0.022 g/cm2 Clinical Information Provided by Patient: Parent has had a hip fracture Has rheumatoid arthritis Is being treated for osteoporosis Has used the following medications: Vitamin D, Calcium Has the following medical conditions: Asthma or Emphysema, Cancer, Hysterectomy Patient maximum height was 67 Menopause Age: 43 No regular weight bearing exercise Onset of menses at age 11 Number of children 0 Impression: The patient has normal bone mass. The patient has risk factors, including: parental hip fracture. No significant bone loss was observed. Discussion: PATIENT UNDER TREATMENT WITH NO SIGNIFICANT BMD LOSS SINCE LAST EXAM. In an untreated patient, BMD typically declines with age. A lack of decline or gain is usually a sign that treatment is efficacious and fracture risk is reduced. It is important to ask patients whether they are taking their medications and to encourage continued and appropriate compliance with their osteoporosis therapies to reduce fracture risk. It is also important to review their risk factors and encourage appropriate calcium and vitamin D intakes, exercise, fall prevention and other lifestyle measures. Follow-Up: Consider a repeat BMD and Vertebral Fracture Assessment (VFA) exam in 2 years or sooner if medically necessary, to reassess this patient's status. Reported by: ANN on 10/09/2020 10:36:00 AM. Reviewed, dictated and finalized at location AAliyah DUBON
== END 2020-10-09 09:56 | disposition home or self-care (01) ==
PROVIDERS: PCP Family Medicine; Visit Provider Internal Medicine Medical Oncology
DX: M81.0 Age-related osteoporosis without current pathological fracture (principal); Z85.3 Personal history of malignant neoplasm of breast
CPT/HCPCS: 77080

== ENCOUNTER 2020-12-25 01:56 | Emergency (ER) | payer MEDICARE, SELFPAY ==
[2020-12-25 02:01] VITALS: BP 131/83; PULSE 99; RESP 16; TEMP 36.8; O2SAT 100
[2020-12-25 02:28] VITALS: BP 114/76; PULSE 94; RESP 20; O2SAT 93
--- NOTE | 2020-12-25 02:38 | ED.ALLEREA ---
HPI - Allergic Reaction General Chief complaint: Allergic Reaction Stated complaint: ?allergic reaction Time Seen by Provider: 12/25/20 02:09 Source: patient, EMS and RN notes reviewed Mode of arrival: EMS Limitations: no limitations History of Present Illness HPI narrative: This is a 70 year old female with history of multiple medical problems who presents for evaluation of lip swelling. Patient states she woke up this morning with weird feeling on right side of her lips. She noticed her lips were swollen when she looked in the mirror. She denies any new exposures to face or lips. She also denies any new medications. She denies tongue swelling, throat itching, painful swallowing, rash or shortness of breath. She denies having similar episode in the past. After review of her medications she does take lisinopril. Related Data Home Medications Medication Instructions Recorded Confirmed celecoxib [Celebrex] 200 mg PO DAILY PRN 04/12/19 12/09/20 anastrozole 1 mg PO DAILY 07/24/19 12/09/20 ferrous sulfate 325 mg PO BID 07/24/19 12/09/20 Allergies Allergy/AdvReac Type Severity Reaction Status Date / Time amoxicillin Allergy Severe DIFFICULTY Verified 12/25/20 02:30 BREATHING/HIVES Iodinated Contrast Media Allergy Severe Anaphylaxis Verified 12/25/20 02:30 lisinopril Allergy Severe Swelling Verified 12/25/20 06:40 of Lip/Tongue/Throat methotrexate Allergy Severe Hives Verified 12/25/20 02:30 Penicillins Allergy Severe DIFFICULTY Verified 12/25/20 02:30 BREATHING/HIVES tetracycline Allergy Severe Hives Verified 12/25/20 02:30 adhesive tape AdvReac Intermediate SKIN PEELS Verified 12/25/20 02:30 OFF codeine AdvReac Mild NAUSEA/VOMI Verified 12/25/20 02:30 TING furosemide AdvReac Unknown DOESN'T Verified 12/25/20 02:30 REMEMBER ioversol AdvReac Unknown DOESN'T Verified 12/25/20 02:30 REMEMBER Review of Systems Review of Systems: All systems reviewed & are unremarkable except as noted in HPI and below PMFSH Past Medical History Medical History Anemia of chronic disease Anxiety Anxiety disorder, unspecified Asthma BMI 39.0-39.9,adult Body mass index (BMI) of 40.1 to 44.9 in adult Bullous pemphigoid On daily prednisone. Cancer of left breast Left breast biopsy in December 2018 showed poorly differentiated ductal carcinoma, ER/UT positive, HER2 positive, and Ki - 67 expression of 30%. Neoadjuvant chemotherapy with TCH and Perjeta. status left breast mastectomy with sentinel lymph node biopsy on 07/31/2019. Colon polyps COPD with emphysema Cyst Degenerative arthritis of knee, bilateral Diastolic congestive heart failure Echocardiogram in December 2018 showed normal left ventricular size, moderate concentric left ventricular hypertrophy with impaired diastolic relaxation grade 1 and ejection fraction of 65%. 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 Stage 3 chronic kidney disease Baseline creatinine around 0.9 and 1.10. Surgical History Surgical History H/O dilation and curettage H/O oophorectomy one ovary-unsure side History of appendectomy History of bilateral cataract extraction History of cardiac catheterization History of cholecystectomy History of cystoscopy With lithotripsy and stent placement. History of hysterectomy History of total mastectomy of left breast (~07/2019) History of tubal ligation Fami
[2020-12-25] MEDS: methylPREDNISolone SOD SUCC 125 MG VIAL IV PUSH (02:45)
[2020-12-25 03:01] LABS: Basophils Percent Auto 0.7 % (0.2-1.2); Eosinophils Absolute Auto 0.1 K/mm3 (0-0.3); Eosinophils Percent Auto 2.5 % (0-4.4); Hematocrit 38.5 % (37.0-47.0); Hemoglobin 12.9 g/dL (12.0-15.0); Immature Granulocyte Absolute 0.02 K/mm3 (0.00-0.031); Immature Granulocyte Percent A 0.4 % (0-0.5); Lymphocytes Percent Auto 22.4 % (18.3-44.2); Mean Corpuscular HGB Conc 33.5 g/dl (32-36); Mean Corpuscular Hemoglobin 29.9 pg (26-34); Mean Corpuscular Volume 89.3 fl (80-100); Mean Platelet Volume 10.4 fl (7.4-10.4); Monocytes Absolute Auto 0.5 K/mm3 (0.1-0.6); Monocytes Percent Auto 10.1 % (2.6-8.5); Neutrophils Absolute Auto 2.9 K/mm3 (1.3-6.7); Neutrophils Percent Auto 63.9 % (45.5-73.1); Platelet Count Result 292 k/mm3 (150-375); Red Blood Count 4.31 M/mm3 (4.2-5.4); Red Cell Distribution Width 14.6 % (11.5-14.5); White Blood Count 4.5 K/mm3 (4.5-10.0)
[2020-12-25 03:15] LABS: INR 1.1; Prothrombin Time 14.5 Seconds (11.1-14.7)
[2020-12-25 03:16] LABS: Partial Thromboplastin Time 30.8 SECONDS (22.3-36.8)
[2020-12-25 03:25] LABS: Alanine Aminotransferase 14 U/L (4-35); Albumin Level 3.7 g/dL (3.5-5.1); Alkaline Phosphatase 65 U/L (38-126); Anion Gap 7 mmol/L (8-16); Aspartate Amino Transferase 20 U/L (14-36); Bilirubin,Total 0.7 mg/dL (0.2-1.3); Blood Urea Nitrogen 18 mg/dL (7-17); Calcium 9.7 mg/dL (8.4-10.2); Carbon Dioxide 28 mmol/L (22-30); Chloride 102 mmol/L (98-107); Estimated CRCL calculation 51 ml/min; Estimated Glomerular Filt Rate 55; Glucose 125 mg/dL (65-110); Potassium 3.8 mmol/L (3.4-5.0); Sodium 137 mmol/L (137-145)
[2020-12-25 03:30] VITALS: BP 97/69; PULSE 97; RESP 14; O2SAT 94
[2020-12-25 04:30] VITALS: BP 111/71; PULSE 91; RESP 14; O2SAT 93
[2020-12-25 05:30] VITALS: BP 113/66; PULSE 88; RESP 20; O2SAT 96
--- NOTE | 2020-12-25 06:46 | PC.NURSE ---
attempted to call reports to alie in [place] x2. no answer. pt. alert and orientedx4 and cares for self regularly. pt. released into care of self.
== END 2020-12-25 06:40 ==
PROVIDERS: Emergency Provider General Practice; PCP Family Medicine
DX: T78.3XXA Angioneurotic edema, initial encounter (principal); T46.4X5A Adverse effect of angiotensin-converting-enzyme inhibitors, initial encounter; J43.9 Emphysema, unspecified; D63.8 Anemia in other chronic diseases classified elsewhere; J45.909 Unspecified asthma, uncomplicated; I50.30 Unspecified diastolic (congestive) heart failure; I13.0 Hypertensive heart and chronic kidney disease with heart failure and stage 1 through stage 4 chronic kidney disease, or unspecified chronic kidney disease; N18.30 Chronic kidney disease, stage 3 unspecified; E11.22 Type 2 diabetes mellitus with diabetic chronic kidney disease; E78.5 Hyperlipidemia, unspecified; M17.0 Bilateral primary osteoarthritis of knee; Z85.3 Personal history of malignant neoplasm of breast; Z92.21 Personal history of antineoplastic chemotherapy; Z90.12 Acquired absence of left breast and nipple; Z86.010 Personal history of colon polyps; E03.9 Hypothyroidism, unspecified; M05.4 Rheumatoid myopathy with rheumatoid arthritis; M81.0 Age-related osteoporosis without current pathological fracture; I48.0 Paroxysmal atrial fibrillation; Z87.11 Personal history of peptic ulcer disease; Z86.711 Personal history of pulmonary embolism; Z98.42 Cataract extraction status, left eye; Z98.41 Cataract extraction status, right eye; Z79.01 Long term (current) use of anticoagulants; Z79.4 Long term (current) use of insulin
CPT/HCPCS: 36415; 80053; 85025; 85610; 85730; 96374; 99284; J2930

== ENCOUNTER 2021-03-03 09:15 | Outpatient (CLI) | payer MEDICARE, SELFPAY ==
--- NOTE | ~2021-03-03 | MM_ITS ---
EXAMINATION: MM screening betina RT w ashley HISTORY: Screening right mammogram, history of left mastectomy TECHNIQUE: Craniocaudal and mediolateral oblique 3-D tomosynthesis images were obtained and synthetic 2-D images were generated. CAD analysis was submitted and interpreted. COMPARISON: 02/28/2020, 01/05/2019, 04/23/2016 BREAST PARENCHYMAL COMPOSITION: The breast is almost entirely fatty. FINDINGS: There is no evidence of suspicious mass, calcification, or architectural distortion to sugg est malignancy. There has been no suspicious interval change. IMPRESSION: 1. No mammographic evidence of malignancy. 2. Recommend routine screening mammography in one year. BI-RADS Category 1: Negative Reviewed, dictated and finalized at location A. 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
== END 2021-03-03 09:16 | disposition home or self-care (01) ==
PROVIDERS: PCP Family Medicine; Visit Provider Internal Medicine Hematology & Oncology
DX: Z12.31 Encounter for screening mammogram for malignant neoplasm of breast (principal)
CPT/HCPCS: 77063; 77067

== ENCOUNTER 2022-03-04 10:01 | Outpatient (CLI) | payer MEDICARE, SELFPAY ==
--- NOTE | ~2022-03-04 | MM_ITS ---
EXAMINATION: MM screening betina RT w ashley HISTORY: Screening right mammogram, history of left mastectomy TECHNIQUE: Craniocaudal and mediolateral oblique 3-D tomosynthesis images were obtained and synthetic 2-D images were generated. CAD analysis was submitted and interpreted. COMPARISON: 03/03/2021, 02/28/2020, 01/05/2019 BREAST PARENCHYMAL COMPOSITION: The breast is almost entirely fatty. FINDINGS: No suspicious mass, calcification, or architectural distortion are identified to suggest ma lignancy. There has been no suspicious interval change.. IMPRESSION: 1. No mammographic evidence of malignancy. 2. Recommend routine screening mammography in one year. BI-RADS Category 1: Negative Reviewed, dictated and finalized at location A. LINE OPERATOR
== END 2022-03-04 10:02 | disposition home or self-care (01) ==
PROVIDERS: PCP Family Medicine; Visit Provider Internal Medicine Hematology & Oncology
DX: Z12.31 Encounter for screening mammogram for malignant neoplasm of breast (principal)
CPT/HCPCS: 77063; 77067

== ENCOUNTER 2022-08-10 12:21 | Outpatient (CLI) | payer MEDICARE, SELFPAY ==
[2022-08-10 13:03] LABS: Eosinophils Absolute Auto 0.1 K/mm3 (0-0.3); Eosinophils Percent Auto 2.9 % (0-4.4); Hematocrit 42.3 % (37.0-47.0); Hemoglobin 13.8 g/dL (12.0-15.0); Immature Granulocyte Absolute 0.01 K/mm3 (0.00-0.031); Immature Granulocyte Percent A 0.2 % (0-0.5); Lymphocytes Absolute Auto 1.16 K/mm3 (0.9-3.2); Lymphocytes Percent Auto 28.2 % (18.3-44.2); Mean Corpuscular HGB Conc 32.6 g/dl (32-36); Mean Corpuscular Hemoglobin 29.2 pg (26-34); Mean Corpuscular Volume 89.6 fl (80-100); Mean Platelet Volume 9.7 fl (7.4-10.4); Monocytes Absolute Auto 0.6 K/mm3 (0.1-0.6); Monocytes Percent Auto 13.3 % (2.6-8.5); Neutrophils Absolute Auto 2.2 K/mm3 (1.3-6.7); Neutrophils Percent Auto 54.4 % (45.5-73.1); Platelet Count Result 260 k/mm3 (150-375); Red Blood Count 4.72 M/mm3 (4.2-5.4); Red Cell Distribution Width 13.7 % (11.5-14.5); White Blood Count 4.1 K/mm3 (4.5-10.0)
[2022-08-10 13:16] LABS: Alanine Aminotransferase 20 U/L (6-35); Albumin Level 4.6 g/dL (3.5-5.1); Alkaline Phosphatase 64 U/L (38-126); Anion Gap 10 mmol/L (8-16); Aspartate Amino Transferase 26 U/L (14-36); Bilirubin,Total 0.8 mg/dL (0.2-1.3); Blood Urea Nitrogen 16 mg/dL (7-17); Calcium 9.6 mg/dL (8.4-10.2); Carbon Dioxide 25 mmol/L (22-30); Chloride 101 mmol/L (98-107); Estimated Glomerular Filt Rate 54; Glucose 98 mg/dL (65-110); Potassium 4.1 mmol/L (3.4-5.0); Sodium 136 mmol/L (137-145)
[2022-08-10 13:18] LABS: Hemoglobin A1C 6.4 % (<5.7)
[2022-08-10 13:29] LABS: LDL Cholesterol Direct 97 mg/dL
[2022-08-14 07:14] LABS: Red Blood Cell Folate 521 ng/mL RBC (>280)
== END 2022-08-10 12:22 | disposition home or self-care (01) ==
PROVIDERS: PCP Family Medicine; Visit Provider Student in an Organized Health Care Education/Training Program
DX: F03.90 Unspecified dementia, unspecified severity, without behavioral disturbance, psychotic disturbance, mood disturbance, and anxiety (principal)
CPT/HCPCS: 36415; 80053; 82607; 82747; 83036; 83721; 84443; 85025

== ENCOUNTER 2022-10-07 09:41 | Outpatient (CLI) | payer MEDICARE, SELFPAY ==
[2022-10-07 11:38] LABS: Free T4 Free Thyroxine 1.88 ng/mL (0.78-2.19)
== END 2022-10-07 09:42 | disposition home or self-care (01) ==
PROVIDERS: PCP Family Medicine; Referring Provider Internal Medicine Hematology & Oncology; Visit Provider Family Medicine
DX: C50.412 Malignant neoplasm of upper-outer quadrant of left female breast (principal); E03.9 Hypothyroidism, unspecified; E53.8 Deficiency of other specified B group vitamins; Z17.0 Estrogen receptor positive status [ER+]
CPT/HCPCS: 36415; 82607; 84439; 84443

== ENCOUNTER 2023-03-08 09:27 | Outpatient (CLI) | payer MEDICARE, SELFPAY ==
[2023-03-08 09:43] LABS: Eosinophils Absolute Auto 0.1 K/mm3 (0-0.3); Eosinophils Percent Auto 2.4 % (0-4.4); Hematocrit 38.8 % (37.0-47.0); Hemoglobin 12.7 g/dL (12.0-15.0); Immature Granulocyte Absolute 0.01 K/mm3 (0.00-0.031); Immature Granulocyte Percent A 0.2 % (0-0.5); Lymphocytes Absolute Auto 0.82 K/mm3 (0.9-3.2); Lymphocytes Percent Auto 19.6 % (18.3-44.2); Mean Corpuscular HGB Conc 32.7 g/dl (32-36); Mean Corpuscular Hemoglobin 28.9 pg (26-34); Mean Corpuscular Volume 88.2 fl (80-100); Mean Platelet Volume 9.5 fl (7.4-10.4); Monocytes Absolute Auto 0.4 K/mm3 (0.1-0.6); Neutrophils Absolute Auto 2.8 K/mm3 (1.3-6.7); Neutrophils Percent Auto 66.8 % (45.5-73.1); Platelet Count Result 227 k/mm3 (150-375); White Blood Count 4.2 K/mm3 (4.5-10.0)
[2023-03-08 13:30] LABS: Alanine Aminotransferase 13 U/L (6-35); Albumin Level 3.8 g/dL (3.5-5.1); Alkaline Phosphatase 65 U/L (38-126); Anion Gap 9 mmol/L (8-16); Aspartate Amino Transferase 20 U/L (14-36); Blood Urea Nitrogen 19 mg/dL (7-17); Calcium 9.2 mg/dL (8.4-10.2); Carbon Dioxide 26 mmol/L (22-30); Chloride 103 mmol/L (98-107); Estimated Glomerular Filt Rate 54; Glucose 137 mg/dL (65-110); Potassium 4.2 mmol/L (3.4-5.0); Sodium 138 mmol/L (137-145)
[2023-03-10 20:47] LABS: CA 15-3 13 U/mL (<32)
== END 2023-03-08 09:28 | disposition home or self-care (01) ==
LOC: ANHLAB 09:28
PROVIDERS: PCP Family Medicine; Visit Provider Internal Medicine Hematology & Oncology
DX: C50.412 Malignant neoplasm of upper-outer quadrant of left female breast (principal); Z17.0 Estrogen receptor positive status [ER+]
CPT/HCPCS: 36415; 80053; 82607; 85025; 86300

== ENCOUNTER 2023-03-08 09:50 | Outpatient (CLI) | payer MEDICARE, SELFPAY ==
--- NOTE | ~2023-03-08 | MM_ITS ---
EXAMINATION: MM screening betina RT w ashley HISTORY: Screening mammogram, history of left mastectomy TECHNIQUE: Craniocaudal and mediolateral oblique 3-D tomosynthesis images were obtained and synthetic 2-D images were generated. CAD analysis was submitted and interpreted. COMPARISON: 03/04/2022, 03/03/2021, 02/28/2020, 01/05/2019 BREAST PARENCHYMAL COMPOSITION: The breast is almost entirely fatty. FINDINGS: No suspicious mass, calcification, or architectural distortion are identified to suggest ma lignancy. There has been no suspicious interval change. IMPRESSION: 1. No mammographic evidence of malignancy. 2. Recommend routine screening mammography in one year. BI-RADS Category 1: Negative Reviewed, dictated and finalized at location A. TYPE MECHANIC
== END 2023-03-08 09:51 | disposition home or self-care (01) ==
PROVIDERS: PCP Family Medicine; Visit Provider Internal Medicine Hematology & Oncology
DX: Z12.31 Encounter for screening mammogram for malignant neoplasm of breast (principal)
CPT/HCPCS: 77063; 77067

== ENCOUNTER 2023-04-14 07:15 | Outpatient (CLI) | payer MEDICARE, SELFPAY ==
--- NOTE | ~2023-04-14 | MR_ITS ---
MRI of the brain Clinical History: Dementia Technique: Axial and sagittal T1-weighted images were acquired. These were followed by axial T2-weigh tomer, diffusion weighted, gradient, and FLAIR images. COMPARISON: 07/06/2009 Findings: No acute infarct, internal hemorrhage or mass lesion identified. There are minimal chronic white matter changes in the periventricular white matter bilaterally. Ventricles and subarachnoid spaces are dilated. Orbits are unremarkable. Paranasal sinuses and mastoi d air cells are clear. Major intracranial flow voids are intact. Sagittal midline structures are intact. IMPRESSION: No acute abnormality. Minimal chronic white matter changes and moderate generalized atrophy. Reviewed, dictated and finalized at [facility]. 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
== END 2023-04-14 07:16 | disposition home or self-care (01) ==
PROVIDERS: PCP Family Medicine; Visit Provider Student in an Organized Health Care Education/Training Program
DX: F03.90 Unspecified dementia, unspecified severity, without behavioral disturbance, psychotic disturbance, mood disturbance, and anxiety (principal)
CPT/HCPCS: 70551

== ENCOUNTER 2023-06-09 14:28 | Outpatient (CLI) | payer MEDICARE, SELFPAY ==
--- NOTE | 2023-06-09 14:53 | ECG_ITS ---
SEE SCANNED COPY FOR CONFIRMED REPORT MTDD
[2023-06-09 15:13] LABS: Hemoglobin 12.6 g/dL (12.0-15.0); Mean Corpuscular HGB Conc 32.3 g/dl (32-36); Mean Corpuscular Hemoglobin 28.4 pg (26-34); Mean Platelet Volume 10.1 fl (7.4-10.4); Platelet Count Result 227 k/mm3 (150-375); Red Blood Count 4.43 M/mm3 (4.2-5.4); Red Cell Distribution Width 14.3 % (11.5-14.5); White Blood Count 6.1 K/mm3 (4.5-10.0)
[2023-06-09 16:14] LABS: Alanine Aminotransferase 13 U/L (6-35); Albumin Level 4.3 g/dL (3.5-5.1); Alkaline Phosphatase 64 U/L (38-126); Anion Gap 7 mmol/L (4-12); Aspartate Amino Transferase 21 U/L (14-36); Bilirubin,Total 0.5 mg/dL (0.2-1.3); Blood Urea Nitrogen 33 mg/dL (7-17); Calcium 9.8 mg/dL (8.4-10.2); Carbon Dioxide 24 mmol/L (22-30); Chloride 105 mmol/L (98-107); Estimated Glomerular Filt Rate 54; Glucose 138 mg/dL (65-110); Potassium 4.4 mmol/L (3.4-5.0); Sodium 136 mmol/L (137-145)
[2023-06-09 16:21] LABS: NT Pro B Type Natriuretic Pept 3090 pg/mL (19.9-100)
[2023-06-09 20:45] LABS: Free T4 Free Thyroxine 1.04 ng/mL (0.78-2.19)
== END 2023-06-09 14:29 | disposition home or self-care (01) ==
LOC: ANHLAB 14:40
PROVIDERS: PCP Family Medicine; Visit Provider Physician Assistant
DX: E03.9 Hypothyroidism, unspecified (principal); E11.9 Type 2 diabetes mellitus without complications; I10 Essential (primary) hypertension; I48.0 Paroxysmal atrial fibrillation; I48.91 Unspecified atrial fibrillation; I50.30 Unspecified diastolic (congestive) heart failure; Z68.41 Body mass index [BMI] 40.0-44.9, adult
CPT/HCPCS: 36415; 80053; 83880; 84439; 84443; 85027; 93005

== ENCOUNTER 2023-07-15 19:10 | Inpatient (IN) | payer MEDICARE, SELFPAY ==
[2023-07-15] VITALS (10 sets, daily range): BP systolic 110–125; BP diastolic 70–88; PULSE 128–151; RESP 21–28; TEMP 36.4; O2SAT 94–100
--- NOTE | ~2023-07-15 | US_ITS ---
EXAMINATION: US venous doppler [facility] DATE: 07/16/2023 10:13 INDICATION: Bilateral pulmonary embolism. TECHNIQUE: Grayscale ultrasound images without and with compression and Doppler ultrasound images of the bilateral lower extremity veins were obtained. COMPARISON: Ultrasound 09/03/2020 FINDINGS: The visualized portions of right common femoral vein, profunda (deep) femoral vein, femoral vein, pop liteal vein, peroneal veins, posterior tibial veins, and greater saphenous vein outflow are patent. The visualized portions of left common femoral vein, profunda femoral vein, femoral vein, popliteal v ein, peroneal veins, posterior tibial veins, and greater saphenous vein outflow are patent. There is a small left Gonzalez's cyst. IMPRESSION: 1. No deep venous thrombosis. 2. Small left Gonzalez's cyst. Reviewed, dictated and finalized at location A.
--- NOTE | ~2023-07-15 | CT_ITS ---
EXAMINATION: CTA chest PE protocol DATE: 07/15/2023 20:47 INDICATION: Tachycardia. TECHNIQUE: Computed tomography angiography (CTA) of the chest was performed with 100 mL Omnipaque-350 intravenous contrast timed to evaluate the pulmonary arteries. Coronal maximum intensity projection 3D-reconstructions were created by the technologist. Automated exposure control and iterative reconst ruction technique were employed. The dose-length product was 1044.59 mGy-cm. COMPARISON: Chest CT 02/10/2019 FINDINGS: The lungs demonstrate mild atelectasis. There is mild scarring in paraspinal right lower lo be. There is septal thickening in the lungs, consistent with mild pulmonary edema. No pleural effusio n. Cardiomegaly is noted. No pericardial effusion. There are acute pulmonary emboli in segmental gladys genesis in all lobes. There are changes of cholecystectomy. There are old healed left rib fractures. The re are bridging endplate osteophytes at multiple levels in the spine, consistent with diffuse idiopat hic skeletal hyperostosis (DISH). There is kyphosis of thoracic spine. IMPRESSION: 1. Acute pulmonary emboli in segmental arteries in all lobes. 2. Mild pulmonary edema. Reviewed, dictated and finalized at location E.
--- NOTE | ~2023-07-15 | XR_ITS ---
EXAMINATION: XR chest 1V portable DATE: 07/15/2023 19:44 INDICATION: Tachycardia. Chest pain. TECHNIQUE: A single frontal view of the chest was obtained on 2 radiographs. COMPARISON: None. FINDINGS: There are airspace opacities in left lower lung zone. No pleural effusion or pneumothorax. Cardiomegaly is noted. There is a right internal jugular port with tip in right atrium. There are jaswinder gical clips in left axilla. There are old healed left rib fractures. IMPRESSION: 1. Airspace opacities in left lower lung zone, consistent with atelectasis/scarring versus pneumonia. 2. Cardiomegaly. Reviewed, dictated and finalized at location E. IMPRESSION: 1. Airspace opacities in left lower lung zone, consistent with atelectasis/scar ring versus pneumonia. 2. Cardiomegaly.
--- NOTE | ~2023-07-15 | XR_ITS ---
EXAMINATION: XR chest 1V portable DATE: 07/22/2023 10:57 INDICATION: Shortness of breath. TECHNIQUE: A single frontal view of the chest was obtained on 2 radiographs. COMPARISON: Chest single view 07/15/2023, chest CT 07/15/2023 FINDINGS: There is mild atelectasis in left lower lung zone. No pleural effusion or pneumothorax. Car diomegaly is noted. There are old healed left rib fractures. There are surgical clips in left axilla. There is a right internal jugular port with tip at superior cavoatrial junction. IMPRESSION: 1. Mild atelectasis in left lower lung zone. 2. Cardiomegaly. Reviewed, dictated and finalized at location A.
--- NOTE | 2023-07-15 19:14 | PC.NURSE ---
Oxygen 2l NC placed on pt for comfort by EDP Dr. Scherer
--- NOTE | 2023-07-15 19:16 | ED.ARRPALP ---
HPI - Arrhythmia/Palpitations General Chief Complaint: Arrhythmia/Palpitations Stated Complaint: tachycardia, hypertention Time Seen by Provider: 07/15/23 19:14 History of Present Illness HPI narrative: 73 year old female presented to the emergency department for evaluation of acute onset of rapid heart rate. Patient reports that just prior to arrival her watch told her she was having a rapid heart rate. EMS was called due to hypertension and rapid heart rate. Patient reports she has been eating and drinking well. Patient denies any associated chest pain. Patient was complaining of some mild shortness of breath so she was placed on oxygen by EMS. Upon arrival to the emergency department patient does have a heart rate in the 150s but is alert oriented and has no complaints at this time. Patient denies any prior history of MA. patient is unsure of what medications that she takes. Related Data Allergies Allergy/AdvReac Type Severity Reaction Status Date / Time No Known Allergies Allergy Verified 07/15/23 19:14 Review of Systems Review of Systems: All systems reviewed & are unremarkable except as noted in HPI and below Exam Narrative: APPEARANCE: Well appearing, no pain, no distress, well-nourished. HEAD: normocephalic, atraumatic. EYES: PERRLA/EOMI, conjunctivae clear. NOSE: Normal no drainage EARS:TMS clear with good light reflex. THROAT: Pharynx clear, no exudate. NECK: Supple. No adenopathy, no masses. RESPIRATORY: Airway patent, respirations nonlabored. Clear to auscultation bilaterally, no rales, rhonchi, wheezing. CARDIOVASCULAR: Tachycardia ABDOMINAL: Soft, nontender, nondistended, normal bowel sounds MUSCULOSKELETAL: Moves all extremities. Strength/ROM intact, No edema, No calf tenderness. NEURO: Alert. Cranial nerves II through XII intact. Grossly intact SKIN: Warm, dry. Normal Color Course Course Emergency Course: Patient was admitted to the IMU for pulmonary embolism and tachycardia Vital Signs Vital signs: Vital Signs Temperature 97.5 F L 07/15/23 19:09 Pulse Rate 151 H 07/15/23 19:09 Respiratory Rate 22 H 07/15/23 19:09 Blood Pressure 125/88 07/15/23 19:09 Pulse Oximetry 95 07/15/23 19:09 Oxygen Delivery Room Air 07/15/23 19:09 Temperature 97.5 F L 07/15/23 19:09 Pulse Rate 128 H 07/15/23 22:14 Respiratory Rate 26 H 07/15/23 22:14 Blood Pressure 118/72 07/15/23 22:14 Pulse Oximetry 97 07/15/23 22:14 Oxygen Delivery Nasal Cannula 07/15/23 21:00 Oxygen Flow Rate 2 07/15/23 21:00 MDM - Arrhythmia/Palpitations MDM Narrative Medical decision making narrative: 73-year-old female present to the emergency department for evaluation for tachycardia. Patient arrived to the emergency department heart rate in the 150s. Patient was treated with a dose of IV Lopressor to get a better evaluation of her heart rhythm. Heart rate slowed down to 130s but still appeared to be sinus tach. Patient was initially started on IV fluids for the sinus tach. Patient's BNP came back elevated at almost 6000 so IV fluids were held. CTA was ordered to evaluate for pulmonary embolism and did show multiple PEs bilaterally. No evidence heart strain noted on CT scan. Patient's initial troponin was negative. Case was discussed with hospitalist patient was accepted for admission. Prior to going to the floor patient was treated with a dose of IV Lasix and also started on heparin. Patient is a full code. Patient is unsure what medication she takes and patient is at assisted living to they are also unsure of her medications. Patient goes to [facility] for her medications. Differential Diagnosis Differential diagnosis: Likely palpitations, anxiety, artial fibrillation and artial flutter Lab Data Attestation: I reviewed the patient's lab results. 07/15/23 19:29 07/15/23 19:29 Labs: Lab Results 07/15/23 07/15/23 07/15/23 Range/Units 19:29 19:29
[2023-07-15] MEDS: METOPROLOL TARTRATE INJ 5 MG/5 ML VIAL IV PUSH ×2 (19:19→20:56)
[2023-07-15] MEDS: SODIUM CHLORIDE 0.9% IV 1,000 ML 999 ML IV CONT (19:28)
[2023-07-15 19:39] LABS: Basophils Absolute Auto 0.1 K/mm3 (0.0-0.1); Basophils Percent Auto 1.3 % (0.2-1.2); Eosinophils Absolute Auto 0.2 K/mm3 (0-0.3); Eosinophils Percent Auto 5.1 % (0-4.4); Hematocrit 38.2 % (37.0-47.0); Hemoglobin 12.3 g/dL (12.0-15.0); Immature Granulocyte Absolute 0.01 K/mm3 (0.00-0.031); Immature Granulocyte Percent A 0.3 % (0-0.5); Lymphocytes Absolute Auto 1.13 K/mm3 (0.9-3.2); Lymphocytes Percent Auto 28.6 % (18.3-44.2); Mean Corpuscular HGB Conc 32.2 g/dl (32-36); Mean Corpuscular Hemoglobin 28.5 pg (26-34); Mean Corpuscular Volume 88.6 fl (80-100); Mean Platelet Volume 10.4 fl (7.4-10.4); Monocytes Absolute Auto 0.5 K/mm3 (0.1-0.6); Monocytes Percent Auto 11.4 % (2.6-8.5); Neutrophils Absolute Auto 2.1 K/mm3 (1.3-6.7); Neutrophils Percent Auto 53.3 % (45.5-73.1); Platelet Count Result 213 k/mm3 (150-375); Red Blood Count 4.31 M/mm3 (4.2-5.4)
[2023-07-15 19:48] LABS: Lactic Acid Reflex 1.4 mmol/L (0.7-2.0)
[2023-07-15 19:49] LABS: Partial Thromboplastin Time 26.5 Seconds (22.3-36.8)
[2023-07-15 19:51] LABS: Alanine Aminotransferase 13 U/L (6-35); Albumin Level 3.9 g/dL (3.5-5.1); Alkaline Phosphatase 65 U/L (38-126); Anion Gap 5 mmol/L (4-12); Aspartate Amino Transferase 20 U/L (14-36); Bilirubin,Total 0.5 mg/dL (0.2-1.3); Blood Urea Nitrogen 22 mg/dL (7-17); Calcium 9.3 mg/dL (8.4-10.2); Carbon Dioxide 24 mmol/L (22-30); Chloride 107 mmol/L (98-107); Estimated CRCL calculation 56 ml/min; Estimated Glomerular Filt Rate 54; Glucose 159 mg/dL (65-110); Magnesium 1.7 mg/dL (1.6-2.3); Potassium 4.4 mmol/L (3.4-5.0); Sodium 136 mmol/L (137-145)
[2023-07-15 19:58] LABS: NT Pro B Type Natriuretic Pept 5900 pg/mL (19.9-100)
--- NOTE | 2023-07-15 20:09 | PC.NURSE ---
Patient's BNP is 5900 and has +2 pitting edema on the top of her feet. Notified EDP Dr. Scherer who VRBO to stop the normal saline bolus.
--- NOTE | 2023-07-15 20:51 | PC.NURSE ---
Patient's pulse back in the 140s. Notified EDP Dr. Scherer who VRBO 5mg Lopressor IVP.
[2023-07-15 20:54] LABS: Thyroid Stimulating Hormone Reflex 0.204 uIU/mL (0.465-4.68)
--- NOTE | 2023-07-15 21:16 | ECG_ITS ---
SEE SCANNED COPY FOR CONFIRMED REPORT MTDD
--- NOTE | 2023-07-15 21:16 | ECG_ITS ---
SEE SCANNED COPY FOR CONFIRMED REPORT MTDD
[2023-07-15 21:31] LABS: Appearance Urine Clear (Clear); Bilirubin Urine Negative (Negative); Blood Urine Negative (Negative); Color Urine Yellow (Yellow); Glucose Urine UA Negative (Negative); Ketones Urine Negative (Negative); Leukocyte Esterase Ur Negative LEU/UL (Negative); Nitrate Urine Negative (Negative); Protein Urine Negative (Negative); Specific Grav Ur 1.025 (1.001-1.035); Urobilinogen Urine 0.2 mg/dL (<2.0)
[2023-07-15 21:32] LABS: Free T4 Free Thyroxine Reflex 2.23 ng/dL (0.78-2.19)
[2023-07-15 21:40] LABS: Add Urine Microscopic? NO
[2023-07-15 21:40] LABS: Troponin I 0.014 ng/mL (0.000-0.034)
[2023-07-15] MEDS: HEPARIN SODIUM 5,000 UNITS/ML VIAL 6500 UNITS IV PUSH (22:06)
[2023-07-15] MEDS: HEPARIN SOD/D5W 100 UNITS/ML 25,000 UNITS/250 ML BAG 15 UNITS IV CONT (22:06)
[2023-07-15] MEDS: FUROSEMIDE INJ 40 MG/4 ML VIAL IV PUSH (23:27)
[2023-07-16] VITALS (20 sets, daily range): BP systolic 86–114; BP diastolic 55–85; PULSE 78–135; RESP 18–20; TEMP 36.2–36.7; O2SAT 88–100; BMI 41.3
--- NOTE | 2023-07-16 | ECHO_ITS ---
Patient Info Name: Hoa Balbuena Age: 73 years : 1950 Gender: Female Ht: 66 in Wt: 255 lbs BSA: 2.38 m2 HR: 131 bpm BP: 93 / 55 mmHg Technical Quality: Fair Exam Date: 07/16/2023 7:35 AM Exam Location: Echo Lab Patient Status: Inpatient Admit Date: 07/15/2023 Staff Ordering Physician: Jose Scherer MD Earth Mover: Mark Crocker RDCS Attending Provider: Vivien Greer DO Referring Physician: Gilmer CHARLES; Exam Type: CA echo limited w contrast Study Info Indications - PE Limited two-dimensional transthoracic echocardiogram is performed with contrast. Contrast/Agitated Saline Contrast/Ag. Saline: Definity Amount: 6.00 ml Summary 1. Left ventricular systolic function is moderately reduced, estimated at 35-40%. 2. Severe hypokinesis of the mid and apical inferolateral left ventricular wall(s). 3. Right ventricular chamber dimension is normal. 4. Right ventricular systolic function is normal. Left Ventricle Left ventricular chamber dimension is normal. Left ventricular systolic function is moderately reduced, estimated at 35-40%. There is no increased left ventricular wall thickness. The left ventricular diastolic function is grade I diastolic dysfunction. Severe hypokinesis of the mid and apical inferolateral left ventricular wall(s). Right Ventricle Right ventricular chamber dimension is normal. Right ventricular systolic function is normal. Left Atria Left atrial chamber dimension is normal. Right Atria Right atrial chamber dimension is normal. Aortic Valve There is no aortic valve sclerosis. There is no aortic valve stenosis. There is no aortic valve regurgitation. Pulmonic Valve The pulmonic valve is not well visualized. Mitral Valve The mitral valve has normal leaflets. There is no mitral valve stenosis. There is trace mitral valve regurgitation. Tricuspid Valve The tricuspid valve leaflets are not well visualized. Pericardium/Pleural The pericardium appears normal. There is no pericardial effusion. Inferior Vena Cava Normal inferior vena cava with >50% collapse upon inspiration consistent with normal right atrial pressure, Empty. Aorta The aortic root size at the sinus of Valsalva is normal. The prox ascending aorta size is normal. Pulmonic Valve Name Value Normal PV Doppler PV Peak Gradient 2 mmHg Mitral Valve Name Value Normal MV Doppler MV Peak Gradient 3 mmHg MV Mean Gradient 1 mmHg MV PHT 36 ms MV Area (PHT) 6.1 cm2 4.0-5.0 Tricuspid Valve Name Value Normal TV Regurgitation Doppler TR Peak Velocity 128 cm/s TR Peak Grad
--- NOTE | 2023-07-16 03:16 | ADMGEN ---
This patient, Hoa Balbuena, was admitted to IMU Room 202-01 at 0110. Patient/family oriented to hospital policies and general routines including ID bracelet, bed and alarms, visiting hours, pain management, procedures, bathroom and other care routines, personal items, smoking policy, room service/diet, and visiting hours. Information on how to activate the Rapid Response Team has been discussed. Patient/Family are encouraged to report perceived risks to care and to ask questions if they do not understand what they are told or what they should do.
[2023-07-16 04:21] LABS: Basophils Percent Auto 0.8 % (0.2-1.2); Eosinophils Absolute Auto 0.2 K/mm3 (0-0.3); Eosinophils Percent Auto 4.2 % (0-4.4); Hemoglobin 12.6 g/dL (12.0-15.0); Immature Granulocyte Absolute 0.02 K/mm3 (0.00-0.031); Immature Granulocyte Percent A 0.4 % (0-0.5); Lymphocytes Absolute Auto 1.05 K/mm3 (0.9-3.2); Lymphocytes Percent Auto 22.1 % (18.3-44.2); Mean Corpuscular HGB Conc 32.3 g/dl (32-36); Mean Corpuscular Hemoglobin 28.5 pg (26-34); Mean Corpuscular Volume 88.2 fl (80-100); Mean Platelet Volume 10.2 fl (7.4-10.4); Monocytes Absolute Auto 0.5 K/mm3 (0.1-0.6); Monocytes Percent Auto 10.5 % (2.6-8.5); Neutrophils Absolute Auto 2.9 K/mm3 (1.3-6.7); Platelet Count Result 206 k/mm3 (150-375); Red Blood Count 4.42 M/mm3 (4.2-5.4); Red Cell Distribution Width 14.3 % (11.5-14.5); White Blood Count 4.8 K/mm3 (4.5-10.0)
[2023-07-16 04:52] LABS: Partial Thromboplastin Time 170.7 Seconds (22.3-36.8)
--- NOTE | 2023-07-16 05:34 | PM.IMHP ---
H&P: HPI History of Present Illness Date/Time: 07/16/23 03:34 Chief Complaint: High heart rate Narrative: 73-year-old female with a past medical history of left breast cancer status post partial mastectomy, hypothyroidism, hypertension, hyperlipidemia and obstructive sleep apnea among other comorbidities who presented to the ER from [facility] due to high heart rate. The patient herself states that she was just having trouble getting up and moving. She denied any chest pain or significant changes in her shortness of breath. She did report feeling significantly fatigued. On EMS arrival to our facility the patient was found to have heart rates in the 150s. She received a dose of adenosine without significant change. Patient was alert oriented to person place and time but was still not the best historian. She reports that her legs are chronically edematous but not significantly changed from baseline. She denies any calf pain or tenderness. She has had some decreased appetite but no significant nausea or vomiting. She reports her last bowel movement was yesterday and was normally formed without hematochezia or melena. She has not had any significant cough or congestion. She does have a history of obstructive sleep apnea and is compliant with her home BiPAP. In the ER S patient's heart rates were in the 120s and 130s. She received 1 dose of IV Lopressor with no significant improvement in heart rate. CTA of the chest demonstrated acute pulmonary emboli in segmental arteries in all lobes and evidence of mild pulmonary edema. The patient had been started on fluid bolus that was discontinued when x-ray findings were returned and patient received 1 dose of IV Lasix. Patient has had good urine output with Lasix and has approximately 800 mL in the back it canister with pure wick catheter. Review of Systems Review of Systems: 12 systems were reviewed with pertinent positives and negatives per HPI. Except as documented in the HPI, all other systems were reviewed and are negative. [facility] Past Medical History Medical History (Updated 07/16/23 @ 08:19 by Vivien Greer DO) Asthma-COPD overlap syndrome Breast cancer, left breast Approximately 2018 treated with mastectomy and chemotherapy Hypothyroidism Obstructive sleep apnea on CPAP Rheumatoid arthritis Type 2 diabetes mellitus Surgical History Surgical History (Updated 07/16/23 @ 08:09 by Vivien Greer DO) History of partial mastectomy of left breast Approximately 2018 Hx of cholecystectomy Status post cataract extraction of both eyes with insertion of intraocular lens Family History Family History Father Acute myocardial infarction Social History Social History (Updated 07/16/23 @ 08:12 by Vivien Greer DO) Social History: The patient has lived in assisted living since approximately 2018. She has never been and does not have any children. 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 She denies any history of tobacco or alcohol use. She ambulates with a walker. Code status: Full code Surrogate decision maker: Chemo Farr (friend) Smoking status: Never smoker Second hand tobacco smoke exposure: No Alcohol intake: never Substance use: never Do You Feel Safe in your Home?: Yes Lack of Transportation: No Lack of Food: Never True Current Housing: I Have Housing Concerned About Future Housing: No Difficulty Paying Gas/Electric Bills: No Difficulty Paying for Meds: No Currently Unemployed: No Education: Master's Degree or Higher Difficulty w/ Childcare or Family Care: No Spiritual care concerns: No Meds Home Medications and Allergies Home Medications Medication Instructions Recorded Confirmed Type anastrozole 1 mg tablet 1 mg PO DAILY 07/16/2306/28
[2023-07-16 06:43] LABS: Partial Thromboplastin Time 71.9 Seconds (22.3-36.8)
[2023-07-16] MEDS: LEVOTHYROXINE SODIUM 112 MCG TABLET PO (06:51)
[2023-07-16] MEDS: SODIUM CHLORIDE 0.9% IV 500 ML 999 ML IV CONT (09:08)
[2023-07-16] MEDS: PERFLUTREN LIPID MICROSPHERES 1.5 ML VIAL DILUTED TO 10 ML TOTAL VOLUME IV PUSH (09:18)
--- NOTE | 2023-07-16 09:18 | IVDEFINITY ---
Prior to administration of IV Definity the patient was educated on the risks and benefits of the imaging enhancing agent including potential adverse side effects. The patient verbalized understanding. Allergies were verified. No exclusion criteria were identified and at least one of the following inclusion criteria were met: 1) physician request, 2) patient technically difficult to image (per the [place] [employer] guidelines of two or more segments not discernable within the apical view), or 3) questionable left ventricular function. ?
[2023-07-16 12:08] LABS: Glucose Point of Care 131 mg/dl (65-105)
--- NOTE | 2023-07-16 12:09 | PM.IMPN ---
Progress Note: A&P Assessment and Plan (1) Pulmonary embolism: Qualifiers: Pulmonary embolism type: multiple subsegmental (without acute cor pulmonale) Qualified Code(s): I26.94 - Multiple subsegmental pulmonary emboli without acute cor pulmonale Code(s): I26.99 - Other pulmonary embolism without acute cor pulmonale Status: Acute (2) Tachycardia: Code(s): R00.0 - Tachycardia, unspecified Status: Acute (3) Obstructive sleep apnea on CPAP: Code(s): G47.33 - Obstructive sleep apnea (adult) (pediatric) Status: Acute (4) Hypothyroidism: Qualifiers: Hypothyroidism type: unspecified Qualified Code(s): E03.9 - Hypothyroidism, unspecified Code(s): E03.9 - Hypothyroidism, unspecified Status: Acute (5) Type 2 diabetes mellitus: Qualifiers: Diabetes mellitus nursing home insulin use: without nursing home use Diabetes mellitus complication status: without complication Qualified Code(s): E11.9 - Type 2 diabetes mellitus without complications Code(s): E11.9 - Type 2 diabetes mellitus without complications Status: Acute (6) Asthma-COPD overlap syndrome: Code(s): J44.89 - Other specified chronic obstructive pulmonary disease Status: Acute Plan 73-year-old female presents to the ED with tachycardia. Patient otherwise did not have any symptoms no chest pain. Shortness of breath was present particularly with exertion. Upon arrival to the ED she was noted to have heart rate of 150s. Patient was given a dose of IV low pressure and her heart rhythm appeared to be sinus tach. Her BNP came back elevated at 6000. CTA was ordered which revealed bilateral psis subsegmental pulmonary embolism. No evidence of heart strain noted on the CT. Initial troponin was negative. She was started on IV heparin. Venous duplex will be ordered as well as echocardiogram. History of breast cancer and on anti stools in therapy Hypotension mild could be related with medications which included Lopressor and Lasix that she received. Continue to monitor. Sinus tachycardia likely due to PE. TSH low Type 2 diabetes on oral hypoglycemics and at home. Diabetic diet SSI KURT on CPAP Hypothyroidism on levothyroxine slightly elevated free T4 and low TSH lowered to 100 mcg daily DVT prophylaxis on heparin drip patient already on Xarelto prior to admission Subjective Date/time seen: 07/16/23 12:09 Interval history: Feels better today. Heart rate has lowered. Blood pressure was low is and hence fluid bolus was given. Which improved. Review of Systems Review of Systems: All systems reviewed & are unremarkable except as noted in HPI and below Exam Narrative: APPEARANCE: Well appearing, no pain, no distress, well-nourished. HEAD: normocephalic, atraumatic. EYES: PERRLA/EOMI, conjunctivae clear. NECK: Supple. No adenopathy, no masses. RESPIRATORY: Airway patent, respirations nonlabored. Clear to auscultation bilaterally, no rales, rhonchi, wheezing. CARDIOVASCULAR:? Regular rate and rhythm sinus on tele ABDOMINAL: Soft, nontender, nondistended, normal bowel sounds MUSCULOSKELETAL: Moves all extremities. Strength/ROM intact, No edema, No calf tenderness. NEURO: Alert. Cranial nerves II through XII intact.? Grossly intact SKIN: Warm, dry. Normal Color Objective Data Vital Signs Vital Signs: Vital Signs - 24 hr 07/15/23 19:09 07/15/23 19:15 07/15/23 19:17 Temperature 97.5 F L Pulse Rate 151 H Respiratory Rate 22 H Blood Pressure 125/88 Pulse Oximetry 95 100 94 Oxygen Delivery Room Air Nasal Cannula Room Air Oxygen Flow Rate 2 Fraction of Inspired Oxygen 07/15/23 19:23 07/15/23 19:24 07/15/23 20:56 Temperature Pulse Rate 137 H 137 H 137 H Respiratory Rate 21 H Blood Pressure 116/83 Pulse Oximetry 99 Oxygen Delivery Oxygen Flow Rate Fraction of Inspired Oxygen 07/15/23 21:00 07/15/23 21:14 07/15/23 22:14
[2023-07-16] MEDS: METOPROLOL TARTRATE 12.5 MG TABLET PO ×2 (12:23→20:47)
[2023-07-16] MEDS: SERTRALINE HCL 50 MG TABLET 200 MG PO (12:24)
[2023-07-16 13:27] LABS: Basophils Absolute Auto 0.1 K/mm3 (0.0-0.1); Basophils Percent Auto 1.3 % (0.2-1.2); Eosinophils Absolute Auto 0.2 K/mm3 (0-0.3); Eosinophils Percent Auto 3.9 % (0-4.4); Hematocrit 40.7 % (37.0-47.0); Hemoglobin 13.1 g/dL (12.0-15.0); Immature Granulocyte Absolute 0.01 K/mm3 (0.00-0.031); Immature Granulocyte Percent A 0.3 % (0-0.5); Lymphocytes Absolute Auto 1.02 K/mm3 (0.9-3.2); Lymphocytes Percent Auto 26.4 % (18.3-44.2); Mean Corpuscular HGB Conc 32.2 g/dl (32-36); Mean Corpuscular Hemoglobin 28.3 pg (26-34); Mean Corpuscular Volume 87.9 fl (80-100); Mean Platelet Volume 10.3 fl (7.4-10.4); Monocytes Absolute Auto 0.4 K/mm3 (0.1-0.6); Monocytes Percent Auto 9.8 % (2.6-8.5); Neutrophils Absolute Auto 2.3 K/mm3 (1.3-6.7); Neutrophils Percent Auto 58.3 % (45.5-73.1); Platelet Count Result 201 k/mm3 (150-375); Red Blood Count 4.63 M/mm3 (4.2-5.4); Red Cell Distribution Width 14.3 % (11.5-14.5); White Blood Count 3.9 K/mm3 (4.5-10.0)
[2023-07-16 13:38] LABS: Alanine Aminotransferase 19 U/L (6-35); Albumin Level 3.7 g/dL (3.5-5.1); Alkaline Phosphatase 69 U/L (38-126); Anion Gap 7 mmol/L (4-12); Aspartate Amino Transferase 26 U/L (14-36); Bilirubin,Total 0.8 mg/dL (0.2-1.3); Blood Urea Nitrogen 20 mg/dL (7-17); Carbon Dioxide 26 mmol/L (22-30); Chloride 103 mmol/L (98-107); Estimated CRCL calculation 56 ml/min; Estimated Glomerular Filt Rate 54; Glucose 168 mg/dL (65-110); Magnesium 1.6 mg/dL (1.6-2.3); Potassium 3.7 mmol/L (3.4-5.0); Sodium 136 mmol/L (137-145)
[2023-07-16 13:44] LABS: Partial Thromboplastin Time 79.3 Seconds (22.3-36.8)
[2023-07-16] MEDS: ONDANSETRON INJ 4 MG/2 ML VIAL IV PUSH (14:24)
[2023-07-16] MEDS: MEMANTINE 10 MG TABLET PO (17:17)
[2023-07-16] MEDS: FERROUS SULFATE 325 MG TABLET DR BY MOUTH (17:18)
[2023-07-16 17:26] LABS: Glucose Point of Care 134 mg/dl (65-105)
[2023-07-16] MEDS: HEPARIN SOD/D5W 100 UNITS/ML 25,000 UNITS/250 ML BAG 13 UNITS IV CONT (18:36)
[2023-07-16] MEDS: DONEPEZIL HCL 10 MG TABLET PO (20:47)
[2023-07-16 20:51] LABS: Glucose Point of Care 167 mg/dl (65-105)
[2023-07-16 20:59] LABS: Partial Thromboplastin Time 92.6 Seconds (22.3-36.8)
[2023-07-17] VITALS (21 sets, daily range): BP systolic 94–111; BP diastolic 57–73; PULSE 68–133; RESP 18–21; TEMP 36.4–37.1; O2SAT 93–95
[2023-07-17 04:22] LABS: Basophils Percent Auto 0.2 % (0.2-1.2); Eosinophils Absolute Auto 0.1 K/mm3 (0-0.3); Eosinophils Percent Auto 1.3 % (0-4.4); Hematocrit 37.8 % (37.0-47.0); Hemoglobin 11.8 g/dL (12.0-15.0); Immature Granulocyte Absolute 0.01 K/mm3 (0.00-0.031); Immature Granulocyte Percent A 0.2 % (0-0.5); Lymphocytes Absolute Auto 0.73 K/mm3 (0.9-3.2); Lymphocytes Percent Auto 15.9 % (18.3-44.2); Mean Corpuscular HGB Conc 31.2 g/dl (32-36); Mean Corpuscular Hemoglobin 27.8 pg (26-34); Mean Corpuscular Volume 89.2 fl (80-100); Mean Platelet Volume 10.4 fl (7.4-10.4); Monocytes Absolute Auto 0.4 K/mm3 (0.1-0.6); Neutrophils Absolute Auto 3.4 K/mm3 (1.3-6.7); Neutrophils Percent Auto 74.4 % (45.5-73.1); Platelet Count Result 212 k/mm3 (150-375); Red Blood Count 4.24 M/mm3 (4.2-5.4); Red Cell Distribution Width 14.2 % (11.5-14.5); White Blood Count 4.6 K/mm3 (4.5-10.0)
[2023-07-17 04:47] LABS: INR 1.1; Prothrombin Time 14.9 Seconds (11.1-14.7)
[2023-07-17 04:49] LABS: Partial Thromboplastin Time 94.2 Seconds (22.3-36.8)
[2023-07-17 04:51] LABS: Alanine Aminotransferase 20 U/L (6-35); Albumin Level 3.5 g/dL (3.5-5.1); Alkaline Phosphatase 67 U/L (38-126); Anion Gap 3 mmol/L (4-12); Aspartate Amino Transferase 26 U/L (14-36); Bilirubin,Total 0.7 mg/dL (0.2-1.3); Blood Urea Nitrogen 22 mg/dL (7-17); Carbon Dioxide 27 mmol/L (22-30); Chloride 104 mmol/L (98-107); Estimated CRCL calculation 47 ml/min; Estimated Glomerular Filt Rate 44; Glucose 154 mg/dL (65-110); Magnesium 1.7 mg/dL (1.6-2.3); Potassium 4.3 mmol/L (3.4-5.0); Sodium 134 mmol/L (137-145)
[2023-07-17] MEDS: LEVOTHYROXINE SODIUM 100 MCG TABLET PO (05:36)
[2023-07-17 07:59] LABS: Glucose Point of Care 149 mg/dl (65-105)
[2023-07-17] MEDS: INDAPAMIDE 1.25 MG TABLET PO (08:28)
[2023-07-17] MEDS: SERTRALINE HCL 50 MG TABLET 200 MG PO (08:28)
[2023-07-17] MEDS: ATORVASTATIN 10 MG TABLET PO (08:28)
[2023-07-17] MEDS: CHOLECALCIFEROL 1,000 UNITS TABLET 1000 UNITS PO (08:29)
[2023-07-17] MEDS: MEMANTINE 10 MG TABLET PO ×2 (08:29→17:42)
[2023-07-17] MEDS: POTASSIUM CHLORIDE 20 MEQ ER TABLET PO (08:29)
[2023-07-17] MEDS: FERROUS SULFATE 325 MG TABLET DR BY MOUTH ×2 (08:29→17:42)
[2023-07-17] MEDS: CYANOCOBALAMIN 1,000 MCG TABLET 1000 MCG PO (08:29)
[2023-07-17] MEDS: METOPROLOL TARTRATE 25 MG TABLET PO ×2 (08:36→20:45)
--- NOTE | 2023-07-17 12:33 | PM.CNCAR ---
Assessment and Plan Assessment and plan (1) Atrial flutter: Code(s): I48.92 - Unspecified atrial flutter Status: Acute Plan Paroxysmal supraventricular tachycardia likely atrial flutter Acute bone embolism Hypothyroidism Diabetes mellitus type 2 COPD Plan Oral anticoagulation rivaroxaban 20 mg daily DC indapamide Start metoprolol 25 mg b.i.d. History of Present Illness History of Present Illness Consult date/time: 07/17/23 12:33 Reason For Visit: PE, Tachycardia Narrative: 73-year-old female patient presented to the hospital because of reported tachycardia. Patient lives in a nursing facility and was noted to have rapid heart rates up to 150s. On arrival to the hospital received adenosine without significant change in heart rate. Patient denies any shortness of breath or palpitations. Workup including CT angiogram revealed pulmonary embolism. Overnight she converted back to sinus rhythm. Review of Systems Review of Systems: All systems reviewed & are unremarkable except as noted in HPI and below PMFSH Past Medical History Medical History (Updated 07/17/23 @ 12:40 by René Shannon MD) Asthma-COPD overlap syndrome Breast cancer, left breast Approximately 2018 treated with mastectomy and chemotherapy Hypothyroidism Obstructive sleep apnea on CPAP Rheumatoid arthritis Type 2 diabetes mellitus Surgical History Surgical History (Updated 07/16/23 @ 08:09 by Vivien Greer DO) History of partial mastectomy of left breast Approximately 2018 Hx of cholecystectomy Status post cataract extraction of both eyes with insertion of intraocular lens Family History Family History Father Acute myocardial infarction Social History Social History (Updated 07/16/23 @ 08:12 by Vivien Greer DO) Social History: The patient has lived in assisted living since approximately 2018. She has never been and does not have any children. 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 She denies any history of tobacco or alcohol use. She ambulates with a walker. Code status: Full code Surrogate decision maker: Chemo Farr (friend) Smoking status: Never smoker Second hand tobacco smoke exposure: No Alcohol intake: never Substance use: never Do You Feel Safe in your Home?: Yes Lack of Transportation: No Lack of Food: Never True Current Housing: I Have Housing Concerned About Future Housing: No Difficulty Paying Gas/Electric Bills: No Difficulty Paying for Meds: No Currently Unemployed: No Education: Master's Degree or Higher Difficulty w/ Childcare or Family Care: No Spiritual care concerns: No Meds Home Medications and Allergies Home Medications Medication Instructions Recorded Confirmed Type atorvastatin 10 mg tablet 10 mg PO DAILY 07/16/23 07/16/23 History cholecalciferol (vitamin D3) 25 25 mcg PO DAILY 07/16/23 07/16/23 History mcg (1,000 unit) tablet cyanocobalamin (vitamin B-12) 1,000 mcg PO DAILY 07/16/23 07/16/23 History 1,000 mcg tablet (Vitamin B-12) donepezil 10 mg tablet 10 mg PO HS 07/16/23 07/16/23 History ferrous sulfate 325 mg (65 mg 325 mg PO BID 07/16/23 07/16/23 History iron) tablet indapamide 1.25 mg tablet 1.25 mg PO DAILY 07/16/23 07/16/23 History memantine 10 mg tablet 10 mg PO BID 07/16/23 07/16/23 History metformin 1,000 mg tablet 1,000 mg PO BID 07/16/23 07/16/23 History potassium chloride 20 mEq 20 meq PO DAILY 07/16/23 07/16/23 History tablet,extended release rivaroxaban 20 mg tablet (Xarelto) 20 mg PO DAILY 07/16/23 07/16/23 History sertraline 100 mg tablet 200 mg PO DAILY 07/16/23 07/16/23 History Allergies Allergy/AdvReac Type Severity Reaction Status Date / Time No Known Allergies Allergy Verified 07/15/23 19:14 Vital Signs Vital Signs - 24 hr
[2023-07-17] MEDS: HEPARIN SOD/D5W 100 UNITS/ML 25,000 UNITS/250 ML BAG 13 UNITS IV CONT (12:52)
[2023-07-17 12:54] LABS: Glucose Point of Care 144 mg/dl (65-105)
--- NOTE | 2023-07-17 13:35 | PM.IMPN ---
Progress Note: A&P Assessment and Plan (1) Pulmonary embolism: Qualifiers: Pulmonary embolism type: multiple subsegmental (without acute cor pulmonale) Qualified Code(s): I26.94 - Multiple subsegmental pulmonary emboli without acute cor pulmonale Code(s): I26.99 - Other pulmonary embolism without acute cor pulmonale Status: Acute (2) Tachycardia: Code(s): R00.0 - Tachycardia, unspecified Status: Acute (3) Obstructive sleep apnea on CPAP: Code(s): G47.33 - Obstructive sleep apnea (adult) (pediatric) Status: Acute (4) Hypothyroidism: Qualifiers: Hypothyroidism type: unspecified Qualified Code(s): E03.9 - Hypothyroidism, unspecified Code(s): E03.9 - Hypothyroidism, unspecified Status: Acute (5) Type 2 diabetes mellitus: Qualifiers: Diabetes mellitus detention insulin use: without detention use Diabetes mellitus complication status: without complication Qualified Code(s): E11.9 - Type 2 diabetes mellitus without complications Code(s): E11.9 - Type 2 diabetes mellitus without complications Status: Acute (6) Asthma-COPD overlap syndrome: Code(s): J44.89 - Other specified chronic obstructive pulmonary disease Status: Acute Plan 73-year-old female presents to the ED with tachycardia. Patient otherwise did not have any symptoms no chest pain. Shortness of breath was present particularly with exertion. Upon arrival to the ED she was noted to have heart rate of 150s. Patient was given a dose of IV low pressure and her heart rhythm appeared to be sinus tach. Her BNP came back elevated at 6000. CTA was ordered which revealed bilateral psis subsegmental pulmonary embolism. No evidence of heart strain noted on the CT. Initial troponin was negative. She was started on IV heparin. Venous duplex negative. Echocardiogram showed low ejection fraction of 35-40% grade 1 diastolic dysfunction severe hypokinesis of the mid and apical inferolateral left ventricle History of breast cancer and on anti stools in therapy Hypotension mild could be related with medications which included Lopressor and Lasix that she received. Continue to monitor. Improved Sinus tachycardia likely due to PE. TSH low. Will increase metoprolol to 25 b.i.d. New cardiomyopathy possible takotsubo or tachycardia induced. Cardiology consult. On metoprolol. She is allergic to lisinopril causing angioedema in the past Type 2 diabetes on oral hypoglycemics and at home. Diabetic diet SSI KURT on CPAP Hypothyroidism on levothyroxine slightly elevated free T4 and low TSH lowered to 100 mcg daily DVT prophylaxis on heparin drip patient already on Xarelto prior to admission Subjective Date/time seen: 07/17/23 13:35 Interval history: Feels okay. Feels better. No new complaint. Review of Systems Review of Systems: All systems reviewed & are unremarkable except as noted in HPI and below Exam Narrative: APPEARANCE: Well appearing, no pain, no distress, well-nourished. HEAD: normocephalic, atraumatic. EYES: PERRLA/EOMI, conjunctivae clear. NECK: Supple. No adenopathy, no masses. RESPIRATORY: Airway patent, respirations nonlabored. Clear to auscultation bilaterally, no rales, rhonchi, wheezing. CARDIOVASCULAR:? Intermittent tachycardia sinus rhythm currently on tele rate controlled ABDOMINAL: Soft, nontender, nondistended, normal bowel sounds MUSCULOSKELETAL: Moves all extremities. Strength/ROM intact, No edema, No calf tenderness. NEURO: Alert. Cranial nerves II through XII intact.? Grossly intact SKIN: Warm, dry. Normal Color Objective Data Vital Signs Vital Signs: Vital Signs - 24 hr 07/16/23 15:50 07/16/23 14:00 07/16/23 16:00 Temperature 98.1 F Pulse Rate 128 H 130 H 128 H Respiratory Rate 19 Blood Pressure 91/63 L Pulse Oximetry 92 Oxygen Delivery Fraction of Inspired Oxygen 07/16/23 18:00 07/16/23 16:00 07/16/23 20:0
[2023-07-17 17:45] LABS: Glucose Point of Care 139 mg/dl (65-105)
[2023-07-17 19:49] LABS: Glucose Point of Care 144 mg/dl (65-105)
[2023-07-17] MEDS: DONEPEZIL HCL 10 MG TABLET PO (20:45)
[2023-07-18] VITALS (15 sets, daily range): BP systolic 91–101; BP diastolic 57–67; PULSE 61–81; RESP 13–20; TEMP 36.5–36.8; O2SAT 92–97
--- NOTE | 2023-07-18 | ECHO_ITS ---
Patient Info Name: Hoa Balbuena Age: 73 years : 1950 Gender: Female Ht: 66 in Wt: 262 lbs BSA: 2.41 m2 HR: 72 bpm Heart Rhythm: Sinus Rhythm Technical Quality: Fair Exam Date: 07/18/2023 11:24 AM Exam Location: Echo Lab Patient Status: Inpatient Admit Date: 07/15/2023 Staff Ordering Physician: Karyn Butt [employer] Worker Foreman: David Fong RDCS Attending Provider: Vivien Greer DO Referring Physician: Filomena PETERSON; Exam Type: CA echo doppler color flow Study Info Indications I49.8 - Other specified cardiac arrhythmias Complete two-dimensional, color flow and Doppler transthoracic echocardiogram is performed. Summary 1. Complete two-dimensional, color flow and Doppler transthoracic echocardiogram is performed. 2. Left ventricular enlargement with severe global systolic dysfunction. 3. Grade 1 diastolic non. 4. Biatrial dilation left greater than right. 5. Mild MR. 6. Sclerotic aortic valve with adequate leaflet separation. Left Ventricle Left ventricular chamber dimension is moderately enlarged. Left ventricular systolic function is severely reduced, estimated at 30-35%. The left ventricular diastolic function is grade I diastolic dysfunction. Right Ventricle Right ventricular chamber dimension is mildly enlarged. Left Atria Left atrial chamber dimension is moderately enlarged. Right Atria Right atrial chamber dimension is mildly enlarged. Aortic Valve The aortic valve is trileaflet. There is moderate aortic valve sclerosis. Pulmonic Valve The pulmonic valve is not well visualized. Mitral Valve The mitral valve has normal leaflets. There is mild mitral valve regurgitation. Tricuspid Valve The tricuspid valve leaflets are normal. Pericardium/Pleural The pericardium appears normal. Aorta The aortic root size at the sinus of Valsalva is normal. Left Ventricular Outflow Tract Name Value Normal LVOT 2D LVOT Diameter 2.0 cm LVOT Doppler LVOT Peak Gradient 2 mmHg LVOT Mean Gradient 1 mmHg LVOT VTI 13 cm LVOT VTI/AV VTI Ratio 0.6 LVOT Stroke Volume 43 ml LVOT CO 2.8 l/min LVOT CI 1.2 l/min/m2 Pulmonic Valve Name Value Normal RVOT Doppler RVOT Peak Gradient 1 mmHg PV Doppler PV Peak Gradient 1 mmHg PV Regurgitation Doppler [place] Peak End Diastolic Velocity 54 cm/s Mitral Valve Name Value Normal MV Doppler
--- NOTE | 2023-07-18 03:05 | PC.NURSE ---
On 07/17/2023 at 0400 this RN transferred care to Celia Geronimo RN.
[2023-07-18 04:46] LABS: Basophils Percent Auto 0.5 % (0.2-1.2); Eosinophils Absolute Auto 0.1 K/mm3 (0-0.3); Hematocrit 36.4 % (37.0-47.0); Hemoglobin 11.6 g/dL (12.0-15.0); Immature Granulocyte Absolute 0.02 K/mm3 (0.00-0.031); Immature Granulocyte Percent A 0.5 % (0-0.5); Lymphocytes Absolute Auto 0.96 K/mm3 (0.9-3.2); Lymphocytes Percent Auto 25.9 % (18.3-44.2); Mean Corpuscular HGB Conc 31.9 g/dl (32-36); Mean Corpuscular Hemoglobin 28.4 pg (26-34); Mean Platelet Volume 10.6 fl (7.4-10.4); Monocytes Absolute Auto 0.4 K/mm3 (0.1-0.6); Monocytes Percent Auto 11.1 % (2.6-8.5); Neutrophils Absolute Auto 2.2 K/mm3 (1.3-6.7); Platelet Count Result 193 k/mm3 (150-375); Red Blood Count 4.09 M/mm3 (4.2-5.4); White Blood Count 3.7 K/mm3 (4.5-10.0)
[2023-07-18 04:57] LABS: Partial Thromboplastin Time 111.6 Seconds (22.3-36.8)
[2023-07-18 05:00] LABS: Alanine Aminotransferase 21 U/L (6-35); Albumin Level 3.4 g/dL (3.5-5.1); Alkaline Phosphatase 65 U/L (38-126); Anion Gap 5 mmol/L (4-12); Aspartate Amino Transferase 24 U/L (14-36); Bilirubin,Total 0.7 mg/dL (0.2-1.3); Blood Urea Nitrogen 24 mg/dL (7-17); Calcium 8.8 mg/dL (8.4-10.2); Carbon Dioxide 27 mmol/L (22-30); Chloride 101 mmol/L (98-107); Estimated CRCL calculation 51 ml/min; Estimated Glomerular Filt Rate 48; Glucose 129 mg/dL (65-110); Magnesium 1.8 mg/dL (1.6-2.3); Sodium 133 mmol/L (137-145)
[2023-07-18] MEDS: LEVOTHYROXINE SODIUM 100 MCG TABLET PO (06:25)
[2023-07-18 07:49] LABS: Glucose Point of Care 144 mg/dl (65-105)
[2023-07-18] MEDS: HEPARIN SOD/D5W 100 UNITS/ML 25,000 UNITS/250 ML BAG 11 UNITS IV CONT (07:56)
--- NOTE | 2023-07-18 09:32 | PM.PNCARD ---
Progress Note: A&P Assessment and Plan (1) Atrial flutter: Code(s): I48.92 - Unspecified atrial flutter Status: Acute Plan Paroxysmal supraventricular tachycardia likely atrial flutter Brief run of NSVT noted on telemetry Cardiomyopathy Acute pulmonary embolism Hypothyroidism Diabetes mellitus type 2 COPD Plan Can be shifted from heparin to DOAC In regard to her cardiomyopathy, will shift her from metoprolol tartrate to succinate 50mg daily. Will add jardiance 10mg daily and spironolactone 12.5mg daily. Hopefully her blood pressure will tolerate GDMT. Unable to use ARNI/NINA/ARB because of allergy. She will need an ischemic evaluation at some point Subjective Date/time seen: 07/18/23 09:32 Interval history: Cardiology follow up for PSVT, cardiomyopathy She feels good today and has no complaints. Denies shortness of breath, palpitations, chest pain. Review of Systems Review of Systems: All systems reviewed & are unremarkable except as noted in HPI and below Exam Const: General: comfortable and no acute distress Other: Able to lie flat HENMT: Face/Nose/Sinus: Normal nares present and no epistaxis Mouth: Yes moist mucous membranes Eyes: Sclera: sclerae normal Pupils: Equal, round and reactive pupils present Neck: Neck: supple and no JVD Carotids: no bruits Resp: Auscultation: clear to auscultation bilaterally and lung sounds not diminished Other: No chest wall tenderness Cardio: Rate: regular rate Rhythm: regular rhythm Heart sounds: no gallops, no murmurs and no rubs GI: Auscultation: normal bowel sounds Skin: General skin exam: normal color, rashes and/or lesions noted and no erythema Other: Warm Neuro: Cranial nerves: Yes Equal, round and reactive pupils present Speech: normal speech Other: No obvious focal deficit or facial asymmetry Extrem: General: no edema Other: Normal capillary refills Intact distal pulses. Objective Data Vital Signs Vital Signs: Vital Signs - 24 hr 07/17/23 10:00 07/17/23 11:58 07/17/23 12:00 Temperature 36.9 C Pulse Rate 80 84 85 Respiratory Rate 18 Blood Pressure 94/57 L Pulse Oximetry 93 Oxygen Delivery 07/17/23 12:00 07/17/23 16:00 07/17/23 16:00 Temperature 37.1 C Pulse Rate 90 83 Respiratory Rate 18 Blood Pressure 105/69 Pulse Oximetry 94 Oxygen Delivery Room Air 07/17/23 14:00 07/17/23 16:00 07/17/23 18:00 Temperature Pulse Rate 86 90 Respiratory Rate Blood Pressure Pulse Oximetry Oxygen Delivery Room Air 07/17/23 19:59 07/17/23 20:45 07/17/23 20:00 Temperature 36.4 C Pulse Rate 87 77 Respiratory Rate 20 Blood Pressure 103/67 Pulse Oximetry 94 Oxygen Delivery Room Air 07/17/23 20:00 07/17/23 22:00 07/17/23 22:45 Temperature Pulse Rate 81 75 68 Respiratory Rate 19 Blood Pressure Pulse Oximetry 94 Oxygen Delivery Autopap 07/17/23 23:58 07/18/23 00:00 07/18/23 00:00 Temperature 36.6 C Pulse Rate 64 61 Respiratory Rate 20 Blood Pressure 96/62 L Pulse Oximetry 92 Oxygen Delivery Room Air 07/18/23 02:00 07/18/23 04:00 07/18/23 04:00 Temperature 36.6 C Pulse Rate 64 65 Respiratory Rate 20 Blood Pressure 101/67 Pulse Oximetry 95 Oxygen Delivery Room Air 07/18/23 04:00 07/18/23 06:00 07/18/23 07:34 Temperature 36.8 C Pulse Rate 75 72 72 Respiratory Rate 17 Blood Pressure 99/63 L Pulse Oximetry 94 Oxygen Delivery Intake/Output Intake/Output: Intake & Output 07/15/23 07/16/23 07/17/23 07/18/23 23:59 23:59 23:59 23:59 Intake Total 400 728.2 689.2 647.9 Output Total 1500 401 200 Balance 400 -771.8 288.2 447.9 Meds/Results Medications: Active Medications Generic Name Dose Route Start Last Admin Trade Name Freq PRN Reason Stop Dose Admin Anastrozole 1 mg 07/16/23 09:00 Anastrozole (*Chemo) 1 Mg Tablet PO DAILY KEATON
[2023-07-18] MEDS: SERTRALINE HCL 50 MG TABLET 200 MG PO (09:57)
[2023-07-18] MEDS: METOPROLOL TARTRATE 25 MG TABLET PO ×2 (09:58→20:26)
[2023-07-18] MEDS: CYANOCOBALAMIN 1,000 MCG TABLET 1000 MCG PO (09:58)
[2023-07-18] MEDS: MEMANTINE 10 MG TABLET PO ×2 (09:58→16:01)
[2023-07-18] MEDS: ATORVASTATIN 10 MG TABLET PO (09:58)
[2023-07-18] MEDS: POTASSIUM CHLORIDE 20 MEQ ER TABLET PO (09:58)
[2023-07-18] MEDS: FERROUS SULFATE 325 MG TABLET DR BY MOUTH ×2 (09:58→16:01)
[2023-07-18] MEDS: CHOLECALCIFEROL 1,000 UNITS TABLET 1000 UNITS PO (09:59)
--- NOTE | 2023-07-18 12:15 | PM.IMPN ---
Progress Note: A&P Assessment and Plan (1) Pulmonary embolism: Qualifiers: Pulmonary embolism type: multiple subsegmental (without acute cor pulmonale) Qualified Code(s): I26.94 - Multiple subsegmental pulmonary emboli without acute cor pulmonale Code(s): I26.99 - Other pulmonary embolism without acute cor pulmonale Status: Acute (2) Tachycardia: Code(s): R00.0 - Tachycardia, unspecified Status: Acute (3) Obstructive sleep apnea on CPAP: Code(s): G47.33 - Obstructive sleep apnea (adult) (pediatric) Status: Acute (4) Hypothyroidism: Qualifiers: Hypothyroidism type: unspecified Qualified Code(s): E03.9 - Hypothyroidism, unspecified Code(s): E03.9 - Hypothyroidism, unspecified Status: Acute (5) Type 2 diabetes mellitus: Qualifiers: Diabetes mellitus alf insulin use: without alf use Diabetes mellitus complication status: without complication Qualified Code(s): E11.9 - Type 2 diabetes mellitus without complications Code(s): E11.9 - Type 2 diabetes mellitus without complications Status: Acute (6) Asthma-COPD overlap syndrome: Code(s): J44.89 - Other specified chronic obstructive pulmonary disease Status: Acute Plan 73-year-old female presents to the ED with tachycardia. Patient otherwise did not have any symptoms no chest pain. Shortness of breath was present particularly with exertion. Upon arrival to the ED she was noted to have heart rate of 150s. Patient was given a dose of IV low pressure and her heart rhythm appeared to be sinus tach. Her BNP came back elevated at 6000. CTA was ordered which revealed bilateral psis subsegmental pulmonary embolism. No evidence of heart strain noted on the CT. Initial troponin was negative. She was started on IV heparin. Venous duplex negative. Echocardiogram showed low ejection fraction of 35-40% grade 1 diastolic dysfunction severe hypokinesis of the mid and apical inferolateral left ventricle History of breast cancer and on anti estrogen therapy Hypotension mild could be related with medications which included Lopressor and Lasix that she received. Continue to monitor. Improved Sinus tachycardia likely due to PE. TSH low. Will increase metoprolol to 25 b.i.d. heart rate has improved with. New cardiomyopathy possible takotsubo or tachycardia induced. Cardiology consult. On metoprolol. She is allergic to lisinopril causing angioedema in the past. May transition metoprolol tartrate to succinate per cardiology. Type 2 diabetes on oral hypoglycemics and at home. Diabetic diet SSI KURT on CPAP Hypothyroidism on levothyroxine slightly elevated free T4 and low TSH lowered to 100 mcg daily DVT prophylaxis on heparin drip patient already on Xarelto prior to admission Subjective Date/time seen: 07/18/23 12:15 Interval history: Feeling better no new complaints heart rate is improved. She denies any chest pain or shortness of breath. Review of Systems Review of Systems: All systems reviewed & are unremarkable except as noted in HPI and below Exam Narrative: APPEARANCE: Well appearing, no pain, no distress, well-nourished. HEAD: normocephalic, atraumatic. EYES: PERRLA/EOMI, conjunctivae clear. NECK: Supple. No adenopathy, no masses. RESPIRATORY: Airway patent, respirations nonlabored. Clear to auscultation bilaterally, no rales, rhonchi, wheezing. CARDIOVASCULAR:? Intermittent tachycardia sinus rhythm currently on tele rate controlled ABDOMINAL: Soft, nontender, nondistended, normal bowel sounds MUSCULOSKELETAL: Moves all extremities. Strength/ROM intact, No edema, No calf tenderness. NEURO: Alert. Cranial nerves II through XII intact.? Grossly intact SKIN: Warm, dry. Normal Color Objective Data Vital Signs Vital Signs: Vital Signs - 24 hr 07/17/23 16:00 07/17/23 16:00 07/17/23 14:00 Temperature 98.7 F Pulse Rate 90 83 86 Respiratory Rate 18
[2023-07-18 12:20] LABS: Glucose Point of Care 120 mg/dl (65-105)
[2023-07-18 14:53] LABS: Partial Thromboplastin Time 68.2 Seconds (22.3-36.8)
[2023-07-18] MEDS: HEPARIN SODIUM 5,000 UNITS/ML VIAL 3500 UNITS IV PUSH (15:55)
[2023-07-18 16:29] LABS: Glucose Point of Care 166 mg/dl (65-105)
[2023-07-18] MEDS: TOLNAFTATE 1% POWDER 45 GM BTL 1 APPLIC TOPICAL ×2 (18:48→20:27)
[2023-07-18] MEDS: DONEPEZIL HCL 10 MG TABLET PO (20:26)
[2023-07-18 22:30] LABS: Partial Thromboplastin Time 149.6 Seconds (22.3-36.8)
[2023-07-18 23:25] LABS: Glucose Point of Care 127 mg/dl (65-105)
[2023-07-19] VITALS (13 sets, daily range): BP systolic 91–113; BP diastolic 55–67; PULSE 58–76; RESP 18–24; TEMP 36.2–37.6; O2SAT 95–96
[2023-07-19] MEDS: HEPARIN SOD/D5W 100 UNITS/ML 25,000 UNITS/250 ML BAG 11 UNITS IV CONT (05:59)
[2023-07-19] MEDS: LEVOTHYROXINE SODIUM 100 MCG TABLET PO (06:05)
[2023-07-19 06:22] LABS: Basophils Percent Auto 0.6 % (0.2-1.2); Eosinophils Absolute Auto 0.1 K/mm3 (0-0.3); Eosinophils Percent Auto 3.7 % (0-4.4); Hematocrit 38.8 % (37.0-47.0); Hemoglobin 12.4 g/dL (12.0-15.0); Immature Granulocyte Absolute 0.02 K/mm3 (0.00-0.031); Immature Granulocyte Percent A 0.6 % (0-0.5); Lymphocytes Absolute Auto 0.85 K/mm3 (0.9-3.2); Mean Corpuscular Volume 87.6 fl (80-100); Mean Platelet Volume 10.4 fl (7.4-10.4); Monocytes Absolute Auto 0.4 K/mm3 (0.1-0.6); Monocytes Percent Auto 11.3 % (2.6-8.5); Neutrophils Absolute Auto 2.1 K/mm3 (1.3-6.7); Neutrophils Percent Auto 59.8 % (45.5-73.1); Platelet Count Result 193 k/mm3 (150-375); Red Blood Count 4.43 M/mm3 (4.2-5.4); Red Cell Distribution Width 13.9 % (11.5-14.5); White Blood Count 3.5 K/mm3 (4.5-10.0)
[2023-07-19 06:28] LABS: Alanine Aminotransferase 25 U/L (6-35); Albumin Level 3.8 g/dL (3.5-5.1); Alkaline Phosphatase 70 U/L (38-126); Anion Gap 5 mmol/L (4-12); Aspartate Amino Transferase 32 U/L (14-36); Bilirubin,Total 0.8 mg/dL (0.2-1.3); Blood Urea Nitrogen 23 mg/dL (7-17); Calcium 9.1 mg/dL (8.4-10.2); Carbon Dioxide 26 mmol/L (22-30); Chloride 98 mmol/L (98-107); Estimated CRCL calculation 50 ml/min; Estimated Glomerular Filt Rate 48; Glucose 122 mg/dL (65-110); Magnesium 1.7 mg/dL (1.6-2.3); Potassium 3.9 mmol/L (3.4-5.0); Sodium 129 mmol/L (137-145)
[2023-07-19 08:04] LABS: Glucose Point of Care 140 mg/dl (65-105)
[2023-07-19] MEDS: INDAPAMIDE 1.25 MG TABLET PO (08:57)
[2023-07-19] MEDS: SERTRALINE HCL 50 MG TABLET 200 MG PO (08:57)
[2023-07-19] MEDS: CHOLECALCIFEROL 1,000 UNITS TABLET 1000 UNITS PO (08:57)
[2023-07-19] MEDS: METOPROLOL SUCCINATE EXT REL 50 MG TABCR PO (08:57)
[2023-07-19] MEDS: METOPROLOL TARTRATE 25 MG TABLET PO ×2 (08:58→20:13)
[2023-07-19] MEDS: EMPAGLIFLOZIN 10 MG TABLET PO (08:58)
[2023-07-19] MEDS: CYANOCOBALAMIN 1,000 MCG TABLET 1000 MCG PO (08:58)
[2023-07-19] MEDS: SPIRONOLACTONE 12.5 MG TABLET PO (08:58)
[2023-07-19] MEDS: MEMANTINE 10 MG TABLET PO ×2 (08:58→17:33)
[2023-07-19] MEDS: FERROUS SULFATE 325 MG TABLET DR BY MOUTH ×2 (08:58→17:33)
[2023-07-19] MEDS: ATORVASTATIN 10 MG TABLET PO (08:58)
[2023-07-19] MEDS: APIXABAN 5 MG TABLET 10 MG PO ×2 (09:01→20:13)
[2023-07-19] MEDS: TOLNAFTATE 1% POWDER 45 GM BTL 1 APPLIC TOPICAL ×2 (09:01→20:13)
--- NOTE | 2023-07-19 09:44 | PM.PNCARD ---
Progress Note: A&P Assessment and Plan (1) Atrial flutter: Code(s): I48.92 - Unspecified atrial flutter Status: Acute Plan Paroxysmal supraventricular tachycardia likely atrial flutter Brief run of NSVT noted on telemetry yesterday Cardiomyopathy, EF 30-35% Acute pulmonary embolism Hypothyroidism Diabetes mellitus type 2 COPD Plan Continue apixaban In regard to her cardiomyopathy, Continue succinate 50mg daily, jardiance 10mg daily and spironolactone 12.5mg daily. Unable to use ARNI/NINA/ARB because of allergy. She will need an ischemic evaluation at some point. Stable from a cardiac standpoint. Further adjustments to her medical regimen can be made as an outpatient. Cardiology will sign off. Please call with questions. Subjective Date/time seen: 07/19/23 09:44 Interval history: Cardiology follow up for PSVT, cardiomyopathy She feels good today and has no complaints. Denies shortness of breath, palpitations, chest pain. Date of service 07/19/23: States she's not doing well today. Concerned about not being able to put on pants. Denies any chest pain, shortness of breath, palpitations. Review of Systems Review of Systems: All systems reviewed & are unremarkable except as noted in HPI and below Exam Const: General: comfortable and no acute distress Other: Able to lie flat HENMT: Face/Nose/Sinus: Normal nares present and no epistaxis Mouth: Yes moist mucous membranes Eyes: Sclera: sclerae normal Pupils: Equal, round and reactive pupils present Neck: Neck: supple and no JVD Carotids: no bruits Resp: Auscultation: clear to auscultation bilaterally and lung sounds not diminished Other: No chest wall tenderness Cardio: Rate: regular rate Rhythm: regular rhythm Heart sounds: no gallops, no murmurs and no rubs GI: Auscultation: normal bowel sounds Skin: General skin exam: normal color, rashes and/or lesions noted and no erythema Other: Warm Neuro: Cranial nerves: Yes Equal, round and reactive pupils present Speech: normal speech Other: No obvious focal deficit or facial asymmetry Extrem: General: no edema Other: Normal capillary refills Intact distal pulses. Objective Data Vital Signs Vital Signs: Vital Signs - 24 hr 07/18/23 09:58 07/18/23 10:00 07/18/23 12:00 Temperature 36.6 C Pulse Rate 76 77 75 Respiratory Rate 18 Blood Pressure 99/61 L Pulse Oximetry 94 Oxygen Delivery 07/18/23 12:00 07/18/23 15:45 07/18/23 16:00 Temperature 36.5 C Pulse Rate 81 Respiratory Rate 20 Blood Pressure 91/60 L Pulse Oximetry 94 Oxygen Delivery Room Air Room Air 07/18/23 12:00 07/18/23 14:00 07/18/23 16:00 Temperature Pulse Rate 74 78 75 Respiratory Rate Blood Pressure Pulse Oximetry Oxygen Delivery 07/18/23 20:26 07/18/23 20:54 07/18/23 20:00 Temperature Pulse Rate 80 76 76 Respiratory Rate 13 Blood Pressure Pulse Oximetry 95 Oxygen Delivery Autopap 07/18/23 20:00 07/18/23 23:28 07/19/23 00:00 Temperature 36.6 C Pulse Rate 71 70 Respiratory Rate 20 Blood Pressure 97/57 L Pulse Oximetry 97 Oxygen Delivery Room Air 07/19/23 04:00 07/19/23 07:24 07/19/23 08:57 Temperature 36.9 C Pulse Rate 61 64 67 Respiratory Rate 18 Blood Pressure 102/56 L Pulse Oximetry 95 Oxygen Delivery 07/19/23 08:58 Temperature Pulse Rate 67 Respiratory Rate Blood Pressure Pulse Oximetry Oxygen Delivery Intake/Output Intake/Output: Intake & Output 07/16/23 07/17/23 07/18/23 07/19/23 23:59 23:59 23:59 23:59 Intake Total 728.2 689.2 1078.8 1416.8 Output Total 1500 401 500 800 Balance -771.8 288.2 578.8 616.8 Meds/Results Medications: Active Medications Generic Name Dose Route Start Last Admin Trade Name Freq PRN Reason Stop Dose Admin Anastrozole 1 mg 07/16/23 09:00 Anastrozole (*Chemo) 1 Mg Tablet PO DAILY KEATON
[2023-07-19 11:58] LABS: Glucose Point of Care 131 mg/dl (65-105)
--- NOTE | 2023-07-19 14:09 | PM.IMPN ---
Progress Note: A&P Assessment and Plan (1) Pulmonary embolism: Qualifiers: Pulmonary embolism type: multiple subsegmental (without acute cor pulmonale) Qualified Code(s): I26.94 - Multiple subsegmental pulmonary emboli without acute cor pulmonale Code(s): I26.99 - Other pulmonary embolism without acute cor pulmonale Status: Acute (2) Tachycardia: Code(s): R00.0 - Tachycardia, unspecified Status: Acute (3) Obstructive sleep apnea on CPAP: Code(s): G47.33 - Obstructive sleep apnea (adult) (pediatric) Status: Acute (4) Hypothyroidism: Qualifiers: Hypothyroidism type: unspecified Qualified Code(s): E03.9 - Hypothyroidism, unspecified Code(s): E03.9 - Hypothyroidism, unspecified Status: Acute (5) Type 2 diabetes mellitus: Qualifiers: Diabetes mellitus care home insulin use: without care home use Diabetes mellitus complication status: without complication Qualified Code(s): E11.9 - Type 2 diabetes mellitus without complications Code(s): E11.9 - Type 2 diabetes mellitus without complications Status: Acute (6) Asthma-COPD overlap syndrome: Code(s): J44.89 - Other specified chronic obstructive pulmonary disease Status: Acute Plan 73-year-old female presents to the ED with tachycardia. Patient otherwise did not have any symptoms no chest pain. Shortness of breath was present particularly with exertion. Upon arrival to the ED she was noted to have heart rate of 150s. Patient was given a dose of IV low pressure and her heart rhythm appeared to be sinus tach. Her BNP came back elevated at 6000. CTA was ordered which revealed bilateral psis subsegmental pulmonary embolism. No evidence of heart strain noted on the CT. Initial troponin was negative. She was started on IV heparin. Venous duplex negative. Echocardiogram showed low ejection fraction of 35-40% grade 1 diastolic dysfunction severe hypokinesis of the mid and apical inferolateral left ventricle History of breast cancer and on anti estrogen therapy Hypotension mild could be related with medications which included Lopressor and Lasix that she received. Continue to monitor. Improved Sinus tachycardia likely due to PE. TSH low. Metoprolol added New cardiomyopathy possible takotsubo or tachycardia induced. Cardiology consult. On metoprolol. She is allergic to lisinopril causing angioedema in the past. Transition to metoprolol succinate along with initiation of Jardiance and spironolactone. Type 2 diabetes on oral hypoglycemics and at home. Diabetic diet SSI KURT on CPAP Hypothyroidism on levothyroxine slightly elevated free T4 and low TSH lowered to 100 mcg daily DVT prophylaxis on heparin drip patient already on Xarelto prior to admission Disposition: PT OT back to assisted living facility versus SNF placement Subjective Date/time seen: 07/19/23 14:09 Interval history: Feeling better no new complaints. Had not gotten up with PT OT yet. Review of Systems Review of Systems: All systems reviewed & are unremarkable except as noted in HPI and below Exam Narrative: APPEARANCE: Well appearing, no pain, no distress, well-nourished. HEAD: normocephalic, atraumatic. EYES: PERRLA/EOMI, conjunctivae clear. NECK: Supple. No adenopathy, no masses. RESPIRATORY: Airway patent, respirations nonlabored. Clear to auscultation bilaterally, no rales, rhonchi, wheezing. CARDIOVASCULAR:? Intermittent tachycardia sinus rhythm currently on tele rate controlled ABDOMINAL: Soft, nontender, nondistended, normal bowel sounds MUSCULOSKELETAL: Moves all extremities. Strength/ROM intact, No edema, No calf tenderness. NEURO: Alert. Cranial nerves II through XII intact.? Grossly intact SKIN: Warm, dry. Normal Color Objective Data Vital Signs Vital Signs: Vital Signs - 24 hr 07/18/23 15:45 07/18/23 16:00 07/18/23 16:00 Temperature 97.7 F Pulse Rate 81 75 Respiratory R
[2023-07-19 19:58] LABS: Glucose Point of Care 121 mg/dl (65-105)
[2023-07-19 20:01] LABS: Glucose Point of Care 119 mg/dl (65-105)
[2023-07-19] MEDS: DONEPEZIL HCL 10 MG TABLET PO (20:13)
[2023-07-20] VITALS (10 sets, daily range): BP systolic 90–114; BP diastolic 52–64; PULSE 49–68; RESP 18–20; TEMP 36.4–37.1; O2SAT 94–96
[2023-07-20 04:36] LABS: Basophils Percent Auto 0.5 % (0.2-1.2); Eosinophils Absolute Auto 0.2 K/mm3 (0-0.3); Eosinophils Percent Auto 3.9 % (0-4.4); Hematocrit 36.4 % (37.0-47.0); Hemoglobin 12.1 g/dL (12.0-15.0); Immature Granulocyte Absolute 0.05 K/mm3 (0.00-0.031); Immature Granulocyte Percent A 1.2 % (0-0.5); Lymphocytes Absolute Auto 0.71 K/mm3 (0.9-3.2); Lymphocytes Percent Auto 17.2 % (18.3-44.2); Mean Corpuscular HGB Conc 33.2 g/dl (32-36); Mean Corpuscular Hemoglobin 28.7 pg (26-34); Mean Corpuscular Volume 86.3 fl (80-100); Mean Platelet Volume 10.8 fl (7.4-10.4); Monocytes Absolute Auto 0.5 K/mm3 (0.1-0.6); Monocytes Percent Auto 12.4 % (2.6-8.5); Neutrophils Absolute Auto 2.7 K/mm3 (1.3-6.7); Neutrophils Percent Auto 64.8 % (45.5-73.1); Platelet Count Result 199 k/mm3 (150-375); Red Blood Count 4.22 M/mm3 (4.2-5.4); Red Cell Distribution Width 13.8 % (11.5-14.5); White Blood Count 4.1 K/mm3 (4.5-10.0)
[2023-07-20 04:47] LABS: Partial Thromboplastin Time 30.9 Seconds (22.3-36.8)
[2023-07-20 04:56] LABS: Alanine Aminotransferase 22 U/L (6-35); Albumin Level 3.6 g/dL (3.5-5.1); Alkaline Phosphatase 64 U/L (38-126); Anion Gap 6 mmol/L (4-12); Aspartate Amino Transferase 28 U/L (14-36); Blood Urea Nitrogen 21 mg/dL (7-17); Carbon Dioxide 24 mmol/L (22-30); Chloride 98 mmol/L (98-107); Estimated CRCL calculation 50 ml/min; Estimated Glomerular Filt Rate 48; Glucose 92 mg/dL (65-110); Magnesium 1.7 mg/dL (1.6-2.3); Potassium 3.6 mmol/L (3.4-5.0); Sodium 128 mmol/L (137-145)
[2023-07-20] MEDS: LEVOTHYROXINE SODIUM 100 MCG TABLET PO (06:07)
[2023-07-20] MEDS: FERROUS SULFATE 325 MG TABLET DR BY MOUTH ×2 (08:25→17:19)
[2023-07-20] MEDS: SPIRONOLACTONE 12.5 MG TABLET PO (08:25)
[2023-07-20] MEDS: SERTRALINE HCL 50 MG TABLET 200 MG PO (08:25)
[2023-07-20] MEDS: CHOLECALCIFEROL 1,000 UNITS TABLET 1000 UNITS PO (08:26)
[2023-07-20] MEDS: METOPROLOL SUCCINATE EXT REL 50 MG TABCR PO (08:26)
[2023-07-20] MEDS: METOPROLOL TARTRATE 25 MG TABLET PO ×2 (08:26→20:26)
[2023-07-20] MEDS: EMPAGLIFLOZIN 10 MG TABLET PO (08:26)
[2023-07-20] MEDS: APIXABAN 5 MG TABLET 10 MG PO ×2 (08:26→20:26)
[2023-07-20] MEDS: MEMANTINE 10 MG TABLET PO ×2 (08:27→17:19)
[2023-07-20] MEDS: INDAPAMIDE 1.25 MG TABLET PO (08:27)
[2023-07-20] MEDS: CYANOCOBALAMIN 1,000 MCG TABLET 1000 MCG PO (08:27)
[2023-07-20] MEDS: ATORVASTATIN 10 MG TABLET PO (08:27)
[2023-07-20] MEDS: TOLNAFTATE 1% POWDER 45 GM BTL 1 APPLIC TOPICAL ×2 (08:29→21:00)
[2023-07-20 09:19] LABS: Glucose Point of Care 112 mg/dl (65-105)
[2023-07-20 12:22] LABS: Glucose Point of Care 110 mg/dl (65-105)
--- NOTE | 2023-07-20 12:48 | PM.IMPN ---
Progress Note: A&P Assessment and Plan (1) Pulmonary embolism: Qualifiers: Pulmonary embolism type: multiple subsegmental (without acute cor pulmonale) Qualified Code(s): I26.94 - Multiple subsegmental pulmonary emboli without acute cor pulmonale Code(s): I26.99 - Other pulmonary embolism without acute cor pulmonale Status: Acute (2) Tachycardia: Code(s): R00.0 - Tachycardia, unspecified Status: Acute (3) Obstructive sleep apnea on CPAP: Code(s): G47.33 - Obstructive sleep apnea (adult) (pediatric) Status: Acute (4) Hypothyroidism: Qualifiers: Hypothyroidism type: unspecified Qualified Code(s): E03.9 - Hypothyroidism, unspecified Code(s): E03.9 - Hypothyroidism, unspecified Status: Acute (5) Type 2 diabetes mellitus: Qualifiers: Diabetes mellitus halfway insulin use: without halfway use Diabetes mellitus complication status: without complication Qualified Code(s): E11.9 - Type 2 diabetes mellitus without complications Code(s): E11.9 - Type 2 diabetes mellitus without complications Status: Acute (6) Asthma-COPD overlap syndrome: Code(s): J44.89 - Other specified chronic obstructive pulmonary disease Status: Acute (7) Hyponatremia: Code(s): E87.1 - Hypo-osmolality and hyponatremia Status: Acute Plan Hoa Balbuena is a 73-year-old female presents to the ED with tachycardia. Patient otherwise did not have any symptoms no chest pain. Shortness of breath was present particularly with exertion. Upon arrival to the ED she was noted to have heart rate of 150s. Patient was given a dose of IV low pressure and her heart rhythm appeared to be sinus tach. Her BNP came back elevated at 6000. CTA chest was ordered which revealed bilateral psis subsegmental pulmonary embolism. No evidence of heart strain noted on the CT. Initial troponin was negative. She was started on IV heparin. Venous duplex negative. Echocardiogram showed low ejection fraction of 35-40% grade 1 diastolic dysfunction severe hypokinesis of the mid and apical inferolateral left ventricle Acute and principal conditions 1. Acute bilateral pulmonary emboli, in segmental arteries in all lobes. 2. Mild pulmonary edema. 3. Hyponatremia. Maybe SIADH, diuretics 4. Physical deconditioning Rx: Fluid restriction, 1.2L Eliquis sOSM Per Cardiology: Continue apixaban In regard to her cardiomyopathy, Continue succinate 50mg daily, jardiance 10mg daily and spironolactone 12.5mg daily.? Unable to use ARNI/NINA/ARB because of allergy.? She will need an ischemic evaluation at some point. Stable from a cardiac standpoint.? Further adjustments to her medical regimen can be made as an outpatient.? Cardiology will sign off.? Please call with questions. 07/20/23: Will likely discharge tomorrow Chronic and stable conditions 1. History of breast cancer and on anti estrogen therapy 2. Hypotension mild could be related with medications which included Lopressor and Lasix that she received. Continue to monitor. Improved 3. Sinus tachycardia likely due to PE. TSH low. Metoprolol added 4. New cardiomyopathy possible takotsubo or tachycardia induced. Cardiology consulted. On metoprolol. She is allergic to lisinopril causing angioedema in the past. Transition to metoprolol succinate along with initiation of Jardiance and spironolactone. 5/ Type 2 diabetes on oral hypoglycemics and at home. Diabetic diet SSI 6. KURT on CPAP 7. Hypothyroidism on levothyroxine slightly elevated free T4 and low TSH lowered to 100 mcg daily 8. Obesity, BMI 40. DVT prophylaxis on heparin drip patient already on Xarelto prior to admission Disposition: PT OT back to assisted living facility versus SNF placement Time Spent With Patient Time: 35 minutes Subjective Date/time seen: 07/20/23 12:48 Interval history: 07/20/23: Seen and examined; eager to be d
[2023-07-20 16:24] LABS: Glucose Point of Care 110 mg/dl (65-105)
[2023-07-20 20:06] LABS: Glucose Point of Care 131 mg/dl (65-105)
[2023-07-20] MEDS: DONEPEZIL HCL 10 MG TABLET PO (20:26)
[2023-07-21] VITALS (8 sets, daily range): BP systolic 101–114; BP diastolic 58–69; PULSE 62–68; RESP 18–20; TEMP 36.1–36.6; O2SAT 93–98; BMI 39.8
[2023-07-21] MEDS: WATER FOR IRRIGATION, STERILE 500 ML BOTTLE (02:42)
[2023-07-21] MEDS: LEVOTHYROXINE SODIUM 100 MCG TABLET PO (05:50)
[2023-07-21 06:25] LABS: Partial Thromboplastin Time 25.9 Seconds (22.3-36.8)
[2023-07-21 07:31] LABS: Glucose Point of Care 97 mg/dl (65-105)
[2023-07-21] MEDS: ANASTROZOLE (*CHEMO) 1 MG TABLET PO (09:28)
[2023-07-21] MEDS: METOPROLOL TARTRATE 25 MG TABLET PO ×2 (09:29→20:38)
[2023-07-21] MEDS: SERTRALINE HCL 50 MG TABLET 200 MG PO (09:29)
[2023-07-21] MEDS: SPIRONOLACTONE 12.5 MG TABLET PO (09:30)
[2023-07-21] MEDS: METOPROLOL SUCCINATE EXT REL 50 MG TABCR PO (09:30)
[2023-07-21] MEDS: APIXABAN 5 MG TABLET 10 MG PO ×2 (09:30→20:38)
[2023-07-21] MEDS: EMPAGLIFLOZIN 10 MG TABLET PO (09:30)
[2023-07-21] MEDS: FERROUS SULFATE 325 MG TABLET DR BY MOUTH ×2 (09:30→17:15)
[2023-07-21] MEDS: CHOLECALCIFEROL 1,000 UNITS TABLET 1000 UNITS PO (09:30)
[2023-07-21] MEDS: ATORVASTATIN 10 MG TABLET PO (09:30)
[2023-07-21] MEDS: MEMANTINE 10 MG TABLET PO ×2 (09:30→17:15)
[2023-07-21] MEDS: TOLNAFTATE 1% POWDER 45 GM BTL 1 APPLIC TOPICAL ×2 (09:35→20:40)
[2023-07-21] MEDS: CYANOCOBALAMIN 1,000 MCG TABLET 1000 MCG PO (09:37)
[2023-07-21] MEDS: INDAPAMIDE 1.25 MG TABLET PO (09:37)
[2023-07-21 11:44] LABS: Glucose Point of Care 120 mg/dl (65-105)
[2023-07-21 11:59] LABS: Hematocrit 38.7 % (37.0-47.0); Hemoglobin 12.5 g/dL (12.0-15.0); Mean Corpuscular HGB Conc 32.3 g/dl (32-36); Mean Corpuscular Hemoglobin 28.2 pg (26-34); Mean Corpuscular Volume 87.4 fl (80-100); Mean Platelet Volume 11.1 fl (7.4-10.4); Platelet Count Result 205 k/mm3 (150-375); Red Blood Count 4.43 M/mm3 (4.2-5.4); White Blood Count 3.9 K/mm3 (4.5-10.0)
[2023-07-21 12:06] LABS: Alanine Aminotransferase 22 U/L (6-35); Albumin Level 3.5 g/dL (3.5-5.1); Alkaline Phosphatase 63 U/L (38-126); Anion Gap 8 mmol/L (4-12); Aspartate Amino Transferase 27 U/L (14-36); Bilirubin,Total 0.8 mg/dL (0.2-1.3); Blood Urea Nitrogen 26 mg/dL (7-17); Carbon Dioxide 23 mmol/L (22-30); Chloride 95 mmol/L (98-107); Estimated CRCL calculation 50 ml/min; Estimated Glomerular Filt Rate 48; Glucose 97 mg/dL (65-110); Potassium 3.8 mmol/L (3.4-5.0); Sodium 126 mmol/L (137-145)
--- NOTE | 2023-07-21 12:39 | PM.IMPN ---
Progress Note: A&P Assessment and Plan (1) Pulmonary embolism: Qualifiers: Pulmonary embolism type: multiple subsegmental (without acute cor pulmonale) Qualified Code(s): I26.94 - Multiple subsegmental pulmonary emboli without acute cor pulmonale Code(s): I26.99 - Other pulmonary embolism without acute cor pulmonale Status: Acute (2) Tachycardia: Code(s): R00.0 - Tachycardia, unspecified Status: Acute (3) Obstructive sleep apnea on CPAP: Code(s): G47.33 - Obstructive sleep apnea (adult) (pediatric) Status: Acute (4) Hypothyroidism: Qualifiers: Hypothyroidism type: unspecified Qualified Code(s): E03.9 - Hypothyroidism, unspecified Code(s): E03.9 - Hypothyroidism, unspecified Status: Acute (5) Type 2 diabetes mellitus: Qualifiers: Diabetes mellitus intermediate insulin use: without intermediate use Diabetes mellitus complication status: without complication Qualified Code(s): E11.9 - Type 2 diabetes mellitus without complications Code(s): E11.9 - Type 2 diabetes mellitus without complications Status: Acute (6) Asthma-COPD overlap syndrome: Code(s): J44.89 - Other specified chronic obstructive pulmonary disease Status: Acute (7) Hyponatremia: Code(s): E87.1 - Hypo-osmolality and hyponatremia Status: Acute Plan Hoa Balbuena is a 73-year-old female presents to the ED with tachycardia. Patient otherwise did not have any symptoms no chest pain. Shortness of breath was present particularly with exertion. Upon arrival to the ED she was noted to have heart rate of 150s. Patient was given a dose of IV low pressure and her heart rhythm appeared to be sinus tach. Her BNP came back elevated at 6000. CTA chest was ordered which revealed bilateral psis subsegmental pulmonary embolism. No evidence of heart strain noted on the CT. Initial troponin was negative. She was started on IV heparin. Venous duplex negative. Echocardiogram showed low ejection fraction of 35-40% grade 1 diastolic dysfunction severe hypokinesis of the mid and apical inferolateral left ventricle Acute and principal conditions 1. Acute bilateral pulmonary emboli, in segmental arteries in all lobes. 2. Mild pulmonary edema. 3. Hyponatremia. Maybe SIADH, diuretics 4. Physical deconditioning Rx: Fluid restriction, 1.2L Eliquis sOSM Per Cardiology: Continue apixaban In regard to her cardiomyopathy, Continue succinate 50mg daily, jardiance 10mg daily and spironolactone 12.5mg daily.? Unable to use ARNI/NINA/ARB because of allergy.? She will need an ischemic evaluation at some point. Stable from a cardiac standpoint.? Further adjustments to her medical regimen can be made as an outpatient.? Cardiology will sign off.? Please call with questions. 07/20/23: Will likely discharge tomorrow 07/21/23: Will hold back due to hyponatremia; will consult nephrology; sOSM pending Chronic and stable conditions 1. History of breast cancer and on anti estrogen therapy 2. Hypotension mild could be related with medications which included Lopressor and Lasix that she received. Continue to monitor. Improved 3. Sinus tachycardia likely due to PE. TSH low. Metoprolol added 4. New cardiomyopathy possible takotsubo or tachycardia induced. Cardiology consulted. On metoprolol. She is allergic to lisinopril causing angioedema in the past. Transition to metoprolol succinate along with initiation of Jardiance and spironolactone. 5/ Type 2 diabetes on oral hypoglycemics and at home. Diabetic diet SSI 6. KURT on CPAP 7. Hypothyroidism on levothyroxine slightly elevated free T4 and low TSH lowered to 100 mcg daily 8. Obesity, BMI 40. DVT prophylaxis on heparin drip patient already on Xarelto prior to admission Disposition: PT OT back to assisted living facility versus SNF placement Time Spent With Patient Time with patient: 25 - 35 minutes Subjective
--- NOTE | 2023-07-21 14:35 | PM.CNNEP ---
Assessment and Plan Assessment and plan (1) Hyponatremia: Code(s): E87.1 - Hypo-osmolality and hyponatremia Status: Acute Assessment and Plan: acute and noted during this hospitalization risk factors for low sodium: recent findings of pulmonary emboli (acute) history of breast cancer asthma/COPD SSRI use thiazide diuretic (indapamide) diastolic heart failure history of hypothyroidism check TSH, cortisol, SPEP/UPEP and serum/urine osmolality start fluid restriction consider adding salt tabs + lasix (unclear what her allergy to lasix is but she apparently received IV dose in ER) follow trend of repeat sodium levels (2) Pulmonary embolism: Qualifiers: Pulmonary embolism type: multiple subsegmental (without acute cor pulmonale) Qualified Code(s): I26.94 - Multiple subsegmental pulmonary emboli without acute cor pulmonale Code(s): I26.99 - Other pulmonary embolism without acute cor pulmonale Status: Acute Assessment and Plan: as noted by admission imaging on anticoagulation (3) Essential (primary) hypertension: Code(s): I10 - Essential (primary) hypertension Status: Chronic Assessment and Plan: reasonable control follow trend of hemodynamics I will continue follow the patient with you while she remains hospitalized and make further recommendations as deemed necessary. Thank you for allowing me to participate in the care this patient. History of Present Illness Reason for Consult Consult date: 07/21/23 Reason for consult: hyponatremia Chief Complaint Chief complaint: PE, Tachycardia History of Present Illness Narrative: The patient is a 73-year-old female with a past medical history as outlined below presented to [facility] ER from her assisted living facility for further evaluation of tachycardia. The patient states that her last day or so she has been having some trouble getting up and moving around. She reported no chest discomfort, shortness of breath, or any other subjective symptoms other than just feeling slightly fatigued. On nursing assessment, she has noted be quite tachycardic and given the symptoms of fatigue as mentioned, she was transferred to the emergency room for further assessment. Workup and evaluation emergency room did demonstrate the patient be quite tachycardic in the range of around 150s by the time of her arrival. She did not appear to be symptomatic with regard to the tachycardia as her only symptom was still that of fatigue. I am unclear if an EKG demonstrated any significant arrhythmia but she was given a dose of adenosine without any change as well as IV Lopressor without any change. She subsequently underwent a CT angiogram of her chest which demonstrated acute pulmonary emboli in the segmental arteries in all lobes and evidence of mild pulmonary edema. She apparently received a dose of IV Lasix in the ER (despite the listing of it as an allergy) with good urine output. She was subsequently initiated on anticoagulation therapy and admitted to the hospital for further evaluation and intervention. Since her admission, the patient appears to be doing reasonably well but has been noted in the last several days that her sodium level has been slowly dropping by the trend of her labs. Renal consultation was requested due to her acute hyponatremia. On admission to the hospital, her sodium was on the lower end of normal at 136 millimoles per L but then over the course of the last several days, it has been slowly and precipitously dropping to her most recent reading by labs done this morning at 1:26 a.m. millimoles per L. in spite of this change in her sodium level, she does not appear to be symptomatic from it and actually feels reasonably well. She does not recall ever being told that she had any issues or problems with hyponatremia in the past. She does have several risk factors for hyponatremia inc
[2023-07-21 16:46] LABS: Glucose Point of Care 124 mg/dl (65-105)
[2023-07-21] MEDS: DONEPEZIL HCL 10 MG TABLET PO (20:38)
[2023-07-21 21:03] LABS: Glucose Point of Care 112 mg/dl (65-105)
[2023-07-22] VITALS (8 sets, daily range): BP systolic 90–101; BP diastolic 55–67; PULSE 60–66; RESP 16–20; TEMP 35.7–36.5; O2SAT 96–99
[2023-07-22] MEDS: LEVOTHYROXINE SODIUM 100 MCG TABLET PO (05:29)
[2023-07-22 06:26] LABS: Basophils Percent Auto 0.8 % (0.2-1.2); Eosinophils Absolute Auto 0.2 K/mm3 (0-0.3); Eosinophils Percent Auto 5.3 % (0-4.4); Hematocrit 39.6 % (37.0-47.0); Immature Granulocyte Absolute 0.02 K/mm3 (0.00-0.031); Immature Granulocyte Percent A 0.6 % (0-0.5); Lymphocytes Absolute Auto 0.95 K/mm3 (0.9-3.2); Lymphocytes Percent Auto 26.3 % (18.3-44.2); Mean Corpuscular HGB Conc 32.8 g/dl (32-36); Mean Corpuscular Hemoglobin 28.1 pg (26-34); Mean Corpuscular Volume 85.7 fl (80-100); Mean Platelet Volume 10.9 fl (7.4-10.4); Monocytes Absolute Auto 0.5 K/mm3 (0.1-0.6); Monocytes Percent Auto 13.9 % (2.6-8.5); Neutrophils Absolute Auto 1.9 K/mm3 (1.3-6.7); Neutrophils Percent Auto 53.1 % (45.5-73.1); Platelet Count Result 222 k/mm3 (150-375); Red Blood Count 4.62 M/mm3 (4.2-5.4); Red Cell Distribution Width 13.7 % (11.5-14.5); White Blood Count 3.6 K/mm3 (4.5-10.0)
[2023-07-22 06:35] LABS: Partial Thromboplastin Time 30.1 Seconds (22.3-36.8)
[2023-07-22 06:44] LABS: Alanine Aminotransferase 21 U/L (6-35); Albumin Level 3.7 g/dL (3.5-5.1); Alkaline Phosphatase 62 U/L (38-126); Anion Gap 7 mmol/L (4-12); Aspartate Amino Transferase 25 U/L (14-36); Bilirubin,Total 0.9 mg/dL (0.2-1.3); Blood Urea Nitrogen 26 mg/dL (7-17); Calcium 8.9 mg/dL (8.4-10.2); Carbon Dioxide 23 mmol/L (22-30); Chloride 93 mmol/L (98-107); Estimated CRCL calculation 55 ml/min; Estimated Glomerular Filt Rate 54; Glucose 101 mg/dL (65-110); Potassium 3.8 mmol/L (3.4-5.0); Sodium 123 mmol/L (137-145)
[2023-07-22 07:01] LABS: Thyroid Stimulating Hormone Reflex 0.917 uIU/mL (0.465-4.68)
[2023-07-22 07:47] LABS: Glucose Point of Care 108 mg/dl (65-105)
[2023-07-22] MEDS: SERTRALINE HCL 50 MG TABLET 200 MG PO (09:14)
[2023-07-22] MEDS: EMPAGLIFLOZIN 10 MG TABLET PO (09:15)
[2023-07-22] MEDS: METOPROLOL SUCCINATE EXT REL 50 MG TABCR PO (09:15)
[2023-07-22] MEDS: FERROUS SULFATE 325 MG TABLET DR BY MOUTH ×2 (09:16→17:30)
[2023-07-22] MEDS: ATORVASTATIN 10 MG TABLET PO (09:16)
[2023-07-22] MEDS: METOPROLOL TARTRATE 25 MG TABLET PO ×2 (09:16→21:01)
[2023-07-22] MEDS: SPIRONOLACTONE 12.5 MG TABLET PO (09:16)
[2023-07-22] MEDS: CYANOCOBALAMIN 1,000 MCG TABLET 1000 MCG PO (09:16)
[2023-07-22] MEDS: ANASTROZOLE (*CHEMO) 1 MG TABLET PO (09:16)
[2023-07-22] MEDS: CHOLECALCIFEROL 1,000 UNITS TABLET 1000 UNITS PO (09:17)
[2023-07-22] MEDS: APIXABAN 5 MG TABLET 10 MG PO ×2 (09:17→21:02)
[2023-07-22] MEDS: MEMANTINE 10 MG TABLET PO ×2 (09:18→17:30)
[2023-07-22] MEDS: TOLNAFTATE 1% POWDER 45 GM BTL 1 APPLIC TOPICAL ×2 (09:18→21:02)
--- NOTE | 2023-07-22 09:46 | PM.PNNEP ---
Progress Note: A&P Assessment and Plan (1) Hyponatremia: Code(s): E87.1 - Hypo-osmolality and hyponatremia Status: Acute Assessment and Plan: acute and noted during this hospitalization risk factors for low sodium: recent findings of pulmonary emboli (acute) history of breast cancer asthma/COPD SSRI use thiazide diuretic (indapamide) diastolic heart failure history of hypothyroidism evaluation to date: TSH okay cortisol reasonable SPEP/UPEP and serum/urine osmo penidng on fluid restriction holding indapamide but remains on SSRI start salt tabs consider adding lasix as well (unclear what her allergy to lasix is but she apparently received IV dose in ER) follow trend of repeat sodium levels (2) Pulmonary embolism: Qualifiers: Pulmonary embolism type: multiple subsegmental (without acute cor pulmonale) Qualified Code(s): I26.94 - Multiple subsegmental pulmonary emboli without acute cor pulmonale Code(s): I26.99 - Other pulmonary embolism without acute cor pulmonale Status: Acute Assessment and Plan: as noted by admission imaging on anticoagulation (3) Essential (primary) hypertension: Code(s): I10 - Essential (primary) hypertension Status: Chronic Assessment and Plan: reasonable control follow trend Will continue to follow. Subjective Date/time seen: 07/22/23 09:46 Interval history: Follow-up for acute hyponatremia. Despite her slow dropping sodium level, she otherwise seems to be feeling reasonably well; started on salt tabs and fluid restriction but holding loop diuretics in effort to ascertain what her allergic reaction is with regard to its use. Exam Narrative: General: elderly female in NAD Heart: normal S1 and S2; no rub Lungs: decreased at bases Abdomen: soft, nontender, nondistended, positive bowel sounds Extremities: no cyanosis or clubbing; 2+ edema Skin: warm and dry Objective Data Vital Signs Vital Signs: Vital Signs Temp Pulse Resp BP Pulse Ox O2 Del Method 07/22/23 09:16 60 07/22/23 09:15 60 07/22/23 06:00 96.3 F L 63 16 90/67 L 97 07/22/23 02:35 60 98 Autopap 07/21/23 22:20 62 98 Autopap 07/21/23 22:00 97 F L 62 18 101/58 L 98 07/21/23 20:00 Room Air 07/21/23 20:38 68 Intake/Output Intake/Output: Intake & Output 07/19/23 07/20/23 07/21/23 07/22/23 23:59 23:59 23:59 23:59 Intake Total 2736.8 550 1400 790 Output Total 900 950 Balance 1836.8 -400 1400 790 Meds/Results Medications: Active Medications Generic Name Dose Route Start Last Admin Trade Name Freq PRN Reason Stop Dose Admin Anastrozole 1 mg 07/16/23 09:00 07/22/23 09:16 Anastrozole (*Chemo) 1 Mg Tablet PO 1 mg DAILY KEATON Administration Apixaban 10 mg 07/19/23 09:00 07/22/23 09:17 Apixaban 5 Mg Tablet PO 07/25/23 21:01 10 mg Q12HR KEATON Administration Apixaban 5 mg 07/26/23 09:00 Apixaban 5 Mg Tablet PO Q12HR KEATON Atorvastatin Calcium 10 mg 07/17/23 09:00 07/22/23 09:16 Atorvastatin 10 Mg Tablet PO 10 mg DAILY KEATON Administration Cyanocobalamin 1,000 mcg 07/17/23 09:00 07/22/23 09:16 Cyanocobalamin 1,000 Mcg Tablet PO 1,000 mcg DAILY KEATON Administration Dextrose 12.5 gm 07/16/23 08:24 Dextrose 50% 25 Gm/50 Ml Syringe IV PUSH PRN PRN Hypoglycemia Protocol Donepezil HCl 10 mg 07/16/23 21:00 07/21/23 20:38 Donepezil Hcl 10 Mg Tablet PO 10 mg HS KEATON Administration Empagliflozin 10 mg 07/19/23 09:00 07/22/23 09:15 Empagliflozin 10 Mg Tablet PO 10 mg DAILY KEATON Administration Ferrous Sulfate 325 mg 07/16/23 17:00 07/22/23 09:16 Ferrous Sulfate [address] BY MOUTH 325 mg BID KEATON Administration Glucagon 1 mg 07/16/23 08:24 Glucagon For Inj 1 Mg Vial IM PRN PRN Hypoglycemia Protocol Glucose 15
--- NOTE | 2023-07-22 09:46 | P.PNNP_ITS ---
Progress Note: A&P Assessment and Plan (1) Hyponatremia: Code(s): E87.1 - Hypo-osmolality and hyponatremia Status: Acute Assessment and Plan: * acute and noted during this hospitalization * risk factors for low sodium: * recent findings of pulmonary emboli (acute) * history of breast cancer * asthma/COPD * SSRI use * thiazide diuretic (indapamide) * diastolic heart failure * history of hypothyroidism * evaluation to date: * TSH okay * cortisol reasonable * SPEP/UPEP and serum/urine osmo penidng * on fluid restriction * holding indapamide but remains on SSRI * start salt tabs * consider adding lasix as well (unclear what her allergy to lasix is but she apparently received IV dose in ER) * follow trend of repeat sodium levels (2) Pulmonary embolism: Qualifiers: Pulmonary embolism type: multiple subsegmental (without acute cor pulmonale) Qualified Code(s): I26.94 - Multiple subsegmental pulmonary emboli without acute cor pulmonale Code(s): I26.99 - Other pulmonary embolism without acute cor pulmonale Status: Acute Assessment and Plan: * as noted by admission imaging * on anticoagulation (3) Essential (primary) hypertension: Code(s): I10 - Essential (primary) hypertension Status: Chronic Assessment and Plan: * reasonable control * follow trend Will continue to follow. Subjective Date/time seen: 07/22/23 09:46 Interval history: Follow-up for acute hyponatremia. Despite her slow dropping sodium level, she otherwise seems to be feeling reasonably well; started on salt tabs and fluid restriction but holding loop diuretics in effort to ascertain what her allergic reaction is with regard to its use. Exam 2 Narrative: General: elderly female in NAD Heart: normal S1 and S2; no rub Lungs: decreased at bases Abdomen: soft, nontender, nondistended, positive bowel sounds Extremities: no cyanosis or clubbing; 2+ edema Skin: warm and dry Objective Data Vital Signs Vital Signs: Vital Signs Temp Pulse Resp BP Pulse Ox O2 Del Method 07/22/23 09:16 60 07/22/23 09:15 60 07/22/23 06:00 96.3 F L 63 16 90/67 L 97 07/22/23 02:35 60 98 Autopap 07/21/23 22:20 62 98 Autopap 07/21/23 22:00 97 F L 62 18 101/58 L 98 07/21/23 20:00 Room Air 07/21/23 20:38 68 Intake/Output Intake/Output: Intake & Output 07/19/23 07/20/23 07/21/23 07/22/23 23:59 23:59 23:59 23:59 Intake Total 2736.8 550 1400 790 Output Total 900 950 Balance 1836.8 -400 1400 790 Meds/Results Medications: Active Medications Generic Name Dose Route Start Last Admin Trade Name Freq PRN Reason Stop Dose Admin Anastrozole 1 mg 07/16/23 09:00 07/22/23 09:16 Anastrozole (*Chemo) 1 Mg Tablet PO 1 mg DAILY KEATON Administration Apixaban 10 mg 07/19/23 09:00 07/22/23 09:17 Apixaban 5 Mg Tablet PO 07/25/23 21:01 10 mg Q12HR KEATON Administration Apixaban 5 mg 07/26/23 09:00 Apixaban 5 Mg Tablet PO Q12HR KEATON Atorvastatin Calcium 10 mg 07/17/23 09:00 0
--- NOTE | 2023-07-22 10:37 | PCNWS ---
Weekly nutritional screen. Patient is tolerating current diet with adequate intake, 10-100% heart healthy diet. No weight loss reported. No nutritional needs at this time.
[2023-07-22 11:37] LABS: Glucose Point of Care 116 mg/dl (65-105)
[2023-07-22 16:42] LABS: Glucose Point of Care 119 mg/dl (65-105)
--- NOTE | 2023-07-22 17:43 | PM.IMPN ---
Progress Note: A&P Assessment and Plan (1) Pulmonary embolism: Qualifiers: Pulmonary embolism type: multiple subsegmental (without acute cor pulmonale) Qualified Code(s): I26.94 - Multiple subsegmental pulmonary emboli without acute cor pulmonale Code(s): I26.99 - Other pulmonary embolism without acute cor pulmonale Status: Acute (2) Tachycardia: Code(s): R00.0 - Tachycardia, unspecified Status: Acute (3) Obstructive sleep apnea on CPAP: Code(s): G47.33 - Obstructive sleep apnea (adult) (pediatric) Status: Acute (4) Hypothyroidism: Qualifiers: Hypothyroidism type: unspecified Qualified Code(s): E03.9 - Hypothyroidism, unspecified Code(s): E03.9 - Hypothyroidism, unspecified Status: Acute (5) Type 2 diabetes mellitus: Qualifiers: Diabetes mellitus penitentiary insulin use: without rodent exterminator use Diabetes mellitus complication status: without complication Qualified Code(s): E11.9 - Type 2 diabetes mellitus without complications Code(s): E11.9 - Type 2 diabetes mellitus without complications Status: Acute (6) Asthma-COPD overlap syndrome: Code(s): J44.89 - Other specified chronic obstructive pulmonary disease Status: Acute (7) Hyponatremia: Code(s): E87.1 - Hypo-osmolality and hyponatremia Status: Acute Plan Hoa Balbuena is a 73-year-old female presents to the ED with tachycardia. Patient otherwise did not have any symptoms no chest pain. Shortness of breath was present particularly with exertion. Upon arrival to the ED she was noted to have heart rate of 150s. Patient was given a dose of IV low pressure and her heart rhythm appeared to be sinus tach. Her BNP came back elevated at 6000. CTA chest was ordered which revealed bilateral psis subsegmental pulmonary embolism. No evidence of heart strain noted on the CT. Initial troponin was negative. She was started on IV heparin. Venous duplex negative. Echocardiogram showed low ejection fraction of 35-40% grade 1 diastolic dysfunction severe hypokinesis of the mid and apical inferolateral left ventricle Acute and principal conditions 1. Acute bilateral pulmonary emboli, in segmental arteries in all lobes. 2. Mild pulmonary edema. 3. Hyponatremia, Hypotonic. Maybe SIADH, diuretics 4. Physical deconditioning Rx: Fluid restriction, 1.2L Eliquis sOSM, 267 >> 272 Per Cardiology: Continue apixaban In regard to her cardiomyopathy, Continue succinate 50mg daily, jardiance 10mg daily and spironolactone 12.5mg daily.? Unable to use ARNI/NINA/ARB because of allergy.? She will need an ischemic evaluation at some point. Stable from a cardiac standpoint.? Further adjustments to her medical regimen can be made as an outpatient.? Cardiology will sign off.? Please call with questions. 07/20/23: Will likely discharge tomorrow 07/21/23: Will hold back due to hyponatremia; will consult nephrology; sOSM pending 07/22/23: Restrict fluids to 1L daily; Add NaCl tabs Chronic and stable conditions 1. History of breast cancer and on anti estrogen therapy 2. Hypotension mild could be related with medications which included Lopressor and Lasix that she received. Continue to monitor. Improved 3. Sinus tachycardia likely due to PE. TSH low. Metoprolol added 4. New cardiomyopathy possible takotsubo or tachycardia induced. Cardiology consulted. On metoprolol. She is allergic to lisinopril causing angioedema in the past. Transition to metoprolol succinate along with initiation of Jardiance and spironolactone. 5/ Type 2 diabetes on oral hypoglycemics and at home. Diabetic diet SSI 6. KURT on CPAP 7. Hypothyroidism on levothyroxine slightly elevated free T4 and low TSH lowered to 100 mcg daily 8. Obesity, BMI 40. DVT prophylaxis on heparin drip patient already on Xarelto prior to admission Disposition: PT OT back to assisted living facility versus SNF placement
[2023-07-22] MEDS: SODIUM CHLORIDE 1 GM TABLET PO (19:31)
[2023-07-22] MEDS: DONEPEZIL HCL 10 MG TABLET PO (21:01)
[2023-07-22 21:53] LABS: Glucose Point of Care 115 mg/dl (65-105)
[2023-07-23] VITALS (8 sets, daily range): BP systolic 98–125; BP diastolic 65–74; PULSE 59–82; RESP 16–18; TEMP 36.3–36.8; O2SAT 94–100
[2023-07-23] MEDS: LEVOTHYROXINE SODIUM 100 MCG TABLET PO (06:25)
[2023-07-23 06:51] LABS: Basophils Percent Auto 0.6 % (0.2-1.2); Eosinophils Absolute Auto 0.2 K/mm3 (0-0.3); Hematocrit 38.4 % (37.0-47.0); Hemoglobin 12.9 g/dL (12.0-15.0); Immature Granulocyte Absolute 0.01 K/mm3 (0.00-0.031); Immature Granulocyte Percent A 0.3 % (0-0.5); Lymphocytes Absolute Auto 0.76 K/mm3 (0.9-3.2); Lymphocytes Percent Auto 21.1 % (18.3-44.2); Mean Corpuscular HGB Conc 33.6 g/dl (32-36); Mean Corpuscular Hemoglobin 28.4 pg (26-34); Mean Corpuscular Volume 84.4 fl (80-100); Mean Platelet Volume 10.9 fl (7.4-10.4); Monocytes Absolute Auto 0.5 K/mm3 (0.1-0.6); Monocytes Percent Auto 12.7 % (2.6-8.5); Neutrophils Absolute Auto 2.2 K/mm3 (1.3-6.7); Neutrophils Percent Auto 60.3 % (45.5-73.1); Platelet Count Result 212 k/mm3 (150-375); Red Blood Count 4.55 M/mm3 (4.2-5.4); Red Cell Distribution Width 13.7 % (11.5-14.5); White Blood Count 3.6 K/mm3 (4.5-10.0)
[2023-07-23 07:00] LABS: Alanine Aminotransferase 18 U/L (6-35); Albumin Level 3.6 g/dL (3.5-5.1); Alkaline Phosphatase 63 U/L (38-126); Anion Gap 5 mmol/L (4-12); Aspartate Amino Transferase 21 U/L (14-36); Bilirubin,Total 0.8 mg/dL (0.2-1.3); Blood Urea Nitrogen 22 mg/dL (7-17); Calcium 8.7 mg/dL (8.4-10.2); Carbon Dioxide 24 mmol/L (22-30); Chloride 92 mmol/L (98-107); Estimated CRCL calculation 56 ml/min; Estimated Glomerular Filt Rate 54; Glucose 98 mg/dL (65-110); Potassium 3.5 mmol/L (3.4-5.0); Sodium 121 mmol/L (137-145)
[2023-07-23 07:32] LABS: Glucose Point of Care 114 mg/dl (65-105)
--- NOTE | 2023-07-23 09:46 | P.PNNP_ITS ---
Progress Note: A&P Assessment and Plan (1) Hyponatremia: Code(s): E87.1 - Hypo-osmolality and hyponatremia Status: Acute Assessment and Plan: * hyponatremia * new and noted during this hospitalization * risk factors for low sodium: * recent findings of pulmonary emboli (acute) * history of breast cancer but TIFF so far * asthma/COPD * SSRI use * thiazide diuretic (indapamide) * diastolic heart failure * history of hypothyroidism * evaluation to date: * TSH okay * cortisol above 15 so no adrenal insufficiency. * SPEP/UPEP and serum/urine osmo penidng * indapamide has been held.on fluid restriction * She is still on Zoloft. This is a very high dose. I discussed this with her in will reduce the dose [id number] per day. Even though her sodium was normal before this, the Zoloft may be interfering with the improvement in the sodium. * On salt tabs And 1200cc fluid restriction. * salt tablets alone do not generally help without concomitant Lasix. * There is a note that she has an allergy to furosemide but the patient does not remember having had any diuretics. * Apparently there is some suspicion that she did receive a dose of Lasix in the emergency room. This is being investigated and if she tolerated she is going to get oral Lasix. However if she has not received this dose then she will not get Lasix. * Salt tablets were just started yesterday at 5:00 p.m.. So will check another sodium level this evening at 6:00 p.m.. If the sodium is worse or the same then will give 3% saline to bring the sodium up. * Most likely the hyponatremia is related to the pulmonary emboli. However the sertraline and indapamide can affect the free water clearance. If she drank a whole lot of fluid as an outpatient then her sodium level might have gone down but she possibly might not drink that much fluid with her mental state. So even though her sodium level was normal it does not necessarily mean that her free water capability was not reduced. and therefore the sertraline and indapamide may make it more difficult for her to recover from the hyponatremia. For this reason will continue holding the indapamide and reduce the Zoloft [id number] daily. Continue treatment of the pulmonary emboli should help with the hyponatremia as well. So this hopefully will not be a long-term issue and therefore demeclocycline would not be necessarily indicated. * Check a level this evening. I will find out if she got her Lasix after all. Consider 3% saline. (2) Pulmonary embolism: Qualifiers: Pulmonary embolism type: multiple subsegmental (without acute cor pulmonale) Qualified Code(s): I26.94 - Multiple subsegmental pulmonary emboli without acute cor pulmonale Code(s): I26.99 - Other pulmonary embolism without acute cor pulmonale Status: Acute Assessment and Plan: * as noted by admission imaging * on anticoagulation (3) Essential (primary) hypertension: Code(s): I10 - Essential (primary) hypertension Status: Chronic Assessment and Plan: * Systolic 125 today. * follow trend Subjective Date/time seen: 07/23/23 09:46 Interval history: Patient is alert. She feels okay but memory is poor. Eating okay. Exam Narrative: General: elderly female in NAD Heart: normal S1 and S2; no rub no gallop Lungs: decreased at bases Abdomen: soft, nontender, nondistended, positive bowel sounds Extremities: no cyanosis or clubbing; 2+ edema Skin:
--- NOTE | 2023-07-23 09:46 | PM.PNNEP ---
Progress Note: A&P Assessment and Plan (1) Hyponatremia: Code(s): E87.1 - Hypo-osmolality and hyponatremia Status: Acute Assessment and Plan: hyponatremia new and noted during this hospitalization risk factors for low sodium: recent findings of pulmonary emboli (acute) history of breast cancer but TIFF so far asthma/COPD SSRI use thiazide diuretic (indapamide) diastolic heart failure history of hypothyroidism evaluation to date: TSH okay cortisol above 15 so no adrenal insufficiency. SPEP/UPEP and serum/urine osmo penidng indapamide has been held.on fluid restriction She is still on Zoloft. This is a very high dose. I discussed this with her in will reduce the dose [id number] per day. Even though her sodium was normal before this, the Zoloft may be interfering with the improvement in the sodium. On salt tabs And 1200cc fluid restriction. salt tablets alone do not generally help without concomitant Lasix. There is a note that she has an allergy to furosemide but the patient does not remember having had any diuretics. Apparently there is some suspicion that she did receive a dose of Lasix in the emergency room. This is being investigated and if she tolerated she is going to get oral Lasix. However if she has not received this dose then she will not get Lasix. Salt tablets were just started yesterday at 5:00 p.m.. So will check another sodium level this evening at 6:00 p.m.. If the sodium is worse or the same then will give 3% saline to bring the sodium up. Most likely the hyponatremia is related to the pulmonary emboli. However the sertraline and indapamide can affect the free water clearance. If she drank a whole lot of fluid as an outpatient then her sodium level might have gone down but she possibly might not drink that much fluid with her mental state. So even though her sodium level was normal it does not necessarily mean that her free water capability was not reduced. and therefore the sertraline and indapamide may make it more difficult for her to recover from the hyponatremia. For this reason will continue holding the indapamide and reduce the Zoloft [id number] daily. Continue treatment of the pulmonary emboli should help with the hyponatremia as well. So this hopefully will not be a long-term issue and therefore demeclocycline would not be necessarily indicated. Check a level this evening. I will find out if she got her Lasix after all. Consider 3% saline. (2) Pulmonary embolism: Qualifiers: Pulmonary embolism type: multiple subsegmental (without acute cor pulmonale) Qualified Code(s): I26.94 - Multiple subsegmental pulmonary emboli without acute cor pulmonale Code(s): I26.99 - Other pulmonary embolism without acute cor pulmonale Status: Acute Assessment and Plan: as noted by admission imaging on anticoagulation (3) Essential (primary) hypertension: Code(s): I10 - Essential (primary) hypertension Status: Chronic Assessment and Plan: Systolic 125 today. follow trend Subjective Date/time seen: 07/23/23 09:46 Interval history: Patient is alert. She feels okay but memory is poor. Eating okay. Exam Narrative: General: elderly female in NAD Heart: normal S1 and S2; no rub no gallop Lungs: decreased at bases Abdomen: soft, nontender, nondistended, positive bowel sounds Extremities: no cyanosis or clubbing; 2+ edema Skin: warm and dry without rash Objective Data Vital Signs Vital Signs: Vital Signs - 24 hr 07/22/23 14:00 07/22/23 21:01 07/22/23 19:30 Temperature 97.4 F L Pulse Rate 66 63 61 Respiratory Rate 18 Blood Pressure Pulse Oximetry 96 99 Oxygen Delivery Autopap 07/22/23 21:00 07/22/23 22:00 07/23/23 03:00 Temperature 97.7 F Pulse Rate 60 Respiratory Rate 20 Blood Pressure 101/55 L Pulse Oximetry 97 97 Oxygen Delivery
[2023-07-23] MEDS: ANASTROZOLE (*CHEMO) 1 MG TABLET PO (10:00)
[2023-07-23] MEDS: APIXABAN 5 MG TABLET 10 MG PO ×2 (10:00→21:10)
[2023-07-23] MEDS: ATORVASTATIN 10 MG TABLET PO (10:00)
[2023-07-23] MEDS: FERROUS SULFATE 325 MG TABLET DR BY MOUTH ×2 (10:01→16:47)
[2023-07-23] MEDS: METOPROLOL TARTRATE 25 MG TABLET PO ×2 (10:01→21:09)
[2023-07-23] MEDS: EMPAGLIFLOZIN 10 MG TABLET PO (10:01)
[2023-07-23] MEDS: CYANOCOBALAMIN 1,000 MCG TABLET 1000 MCG PO (10:01)
[2023-07-23] MEDS: CHOLECALCIFEROL 1,000 UNITS TABLET 1000 UNITS PO (10:01)
[2023-07-23] MEDS: MEMANTINE 10 MG TABLET PO ×2 (10:01→16:47)
[2023-07-23] MEDS: FUROSEMIDE 20 MG TABLET PO ×2 (10:01→16:47)
[2023-07-23] MEDS: TOLNAFTATE 1% POWDER 45 GM BTL 1 APPLIC TOPICAL ×2 (10:02→21:10)
[2023-07-23] MEDS: SERTRALINE HCL 50 MG TABLET 200 MG PO (10:02)
[2023-07-23] MEDS: SODIUM CHLORIDE 1 GM TABLET PO ×2 (10:02→18:01)
[2023-07-23] MEDS: SPIRONOLACTONE 12.5 MG TABLET PO (10:02)
[2023-07-23] MEDS: METOPROLOL SUCCINATE EXT REL 50 MG TABCR PO (10:02)
[2023-07-23 11:58] LABS: Creatinine Urine 63.1 mg/dL; Total Protein Urine Random 6 mg/dL; Urea Random Urine 682 MG/DL
[2023-07-23 11:59] LABS: Sodium Urine Random 83 meq/L
[2023-07-23 12:01] LABS: Glucose Point of Care 113 mg/dl (65-105)
--- NOTE | 2023-07-23 14:46 | PM.IMPN ---
Progress Note: A&P Assessment and Plan (1) Pulmonary embolism: Qualifiers: Pulmonary embolism type: multiple subsegmental (without acute cor pulmonale) Qualified Code(s): I26.94 - Multiple subsegmental pulmonary emboli without acute cor pulmonale Code(s): I26.99 - Other pulmonary embolism without acute cor pulmonale Status: Acute (2) Tachycardia: Code(s): R00.0 - Tachycardia, unspecified Status: Acute (3) Obstructive sleep apnea on CPAP: Code(s): G47.33 - Obstructive sleep apnea (adult) (pediatric) Status: Acute (4) Hypothyroidism: Qualifiers: Hypothyroidism type: unspecified Qualified Code(s): E03.9 - Hypothyroidism, unspecified Code(s): E03.9 - Hypothyroidism, unspecified Status: Acute (5) Type 2 diabetes mellitus: Qualifiers: Diabetes mellitus longterm insulin use: without local company intermodal truck driver use Diabetes mellitus complication status: without complication Qualified Code(s): E11.9 - Type 2 diabetes mellitus without complications Code(s): E11.9 - Type 2 diabetes mellitus without complications Status: Acute (6) Asthma-COPD overlap syndrome: Code(s): J44.89 - Other specified chronic obstructive pulmonary disease Status: Acute (7) Hyponatremia: Code(s): E87.1 - Hypo-osmolality and hyponatremia Status: Acute Plan Hoa Balbuena is a 73-year-old female presents to the ED with tachycardia. Patient otherwise did not have any symptoms no chest pain. Shortness of breath was present particularly with exertion. Upon arrival to the ED she was noted to have heart rate of 150s. Patient was given a dose of IV low pressure and her heart rhythm appeared to be sinus tach. Her BNP came back elevated at 6000. CTA chest was ordered which revealed bilateral psis subsegmental pulmonary embolism. No evidence of heart strain noted on the CT. Initial troponin was negative. She was started on IV heparin. Venous duplex negative. Echocardiogram showed low ejection fraction of 35-40% grade 1 diastolic dysfunction severe hypokinesis of the mid and apical inferolateral left ventricle Acute and principal conditions 1. Acute bilateral pulmonary emboli, in segmental arteries in all lobes. 2. Mild pulmonary edema. 3. Hyponatremia, Hypotonic. Maybe SIADH, diuretics 4. Physical deconditioning Rx: Fluid restriction, 1.2L Eliquis sOSM, 267 >> 272 Per Cardiology: Continue apixaban In regard to her cardiomyopathy, Continue succinate 50mg daily, jardiance 10mg daily and spironolactone 12.5mg daily.? Unable to use ARNI/NINA/ARB because of allergy.? She will need an ischemic evaluation at some point. Stable from a cardiac standpoint.? Further adjustments to her medical regimen can be made as an outpatient.? Cardiology will sign off.? Please call with questions. Hyponatremia: 07/20/23: Will likely discharge tomorrow 07/21/23: Will hold back due to hyponatremia; will consult nephrology; sOSM pending 07/22/23: Restrict fluids to 1L daily; Add NaCl tabs 07/23/2023: Follow-up closely with Nephrology for management of hyponatremia. Continue with oral Lasix and the sodium chloride pills Chronic and stable conditions 1. History of breast cancer and on anti estrogen therapy 2. Hypotension mild could be related with medications which included Lopressor and Lasix that she received. Continue to monitor. Improved 3. Sinus tachycardia likely due to PE. TSH low. Metoprolol added 4. New cardiomyopathy possible takotsubo or tachycardia induced. Cardiology consulted. On metoprolol. She is allergic to lisinopril causing angioedema in the past. Transition to metoprolol succinate along with initiation of Jardiance and spironolactone. 5/ Type 2 diabetes on oral hypoglycemics and at home. Diabetic diet SSI 6. KURT on CPAP 7. Hypothyroidism on levothyroxine slightly elevated free T4 and low TSH lowered to 100 mcg daily 8. Obesity, BMI 40.
[2023-07-23 16:29] LABS: Glucose Point of Care 269 mg/dl (65-105)
[2023-07-23] MEDS: POTASSIUM CHLORIDE 20 MEQ ER TABLET 40 MEQ PO (16:52)
[2023-07-23 20:22] LABS: Sodium 121 mmol/L (137-145)
[2023-07-23 20:42] LABS: Glucose Point of Care 125 mg/dl (65-105)
[2023-07-23] MEDS: DONEPEZIL HCL 10 MG TABLET PO (21:10)
[2023-07-23] MEDS: SODIUM CHLORIDE 3% 200 ML 50 ML IV CONT (21:11)
[2023-07-24] MEDS: LEVOTHYROXINE SODIUM 100 MCG TABLET PO (05:32)
[2023-07-24 06:00] VITALS: BP 103/58; PULSE 51; RESP 20; TEMP 36.4; O2SAT 98
[2023-07-24 06:26] LABS: Basophils Percent Auto 0.8 % (0.2-1.2); Eosinophils Absolute Auto 0.2 K/mm3 (0-0.3); Eosinophils Percent Auto 5.5 % (0-4.4); Hematocrit 38.3 % (37.0-47.0); Hemoglobin 12.7 g/dL (12.0-15.0); Immature Granulocyte Absolute 0.02 K/mm3 (0.00-0.031); Immature Granulocyte Percent A 0.5 % (0-0.5); Lymphocytes Absolute Auto 0.83 K/mm3 (0.9-3.2); Lymphocytes Percent Auto 21.6 % (18.3-44.2); Mean Corpuscular HGB Conc 33.2 g/dl (32-36); Mean Corpuscular Hemoglobin 28.1 pg (26-34); Mean Corpuscular Volume 84.7 fl (80-100); Monocytes Absolute Auto 0.6 K/mm3 (0.1-0.6); Monocytes Percent Auto 14.8 % (2.6-8.5); Neutrophils Absolute Auto 2.2 K/mm3 (1.3-6.7); Neutrophils Percent Auto 56.8 % (45.5-73.1); Platelet Count Result 213 k/mm3 (150-375); Red Blood Count 4.52 M/mm3 (4.2-5.4); Red Cell Distribution Width 13.8 % (11.5-14.5); White Blood Count 3.9 K/mm3 (4.5-10.0)
[2023-07-24 06:28] LABS: Alanine Aminotransferase 15 U/L (6-35); Albumin Level 3.5 g/dL (3.5-5.1); Alkaline Phosphatase 62 U/L (38-126); Anion Gap 5 mmol/L (4-12); Aspartate Amino Transferase 19 U/L (14-36); Bilirubin,Total 0.7 mg/dL (0.2-1.3); Blood Urea Nitrogen 24 mg/dL (7-17); Calcium 8.6 mg/dL (8.4-10.2); Carbon Dioxide 26 mmol/L (22-30); Chloride 95 mmol/L (98-107); Estimated CRCL calculation 51 ml/min; Estimated Glomerular Filt Rate 48; Glucose 101 mg/dL (65-110); Magnesium 1.7 mg/dL (1.6-2.3); Phosphorus 3.9 mg/dL (2.5-4.5); Potassium 3.6 mmol/L (3.4-5.0); Sodium 126 mmol/L (137-145)
[2023-07-24 07:48] LABS: Protein, Total 5.6 g/dL (6.1-8.1)
[2023-07-24 08:00] LABS: Glucose Point of Care 124 mg/dl (65-105)
[2023-07-24] MEDS: CHOLECALCIFEROL 1,000 UNITS TABLET 1000 UNITS PO (08:09)
[2023-07-24] MEDS: FUROSEMIDE 20 MG TABLET PO ×2 (08:09→16:18)
[2023-07-24] MEDS: SPIRONOLACTONE 12.5 MG TABLET PO (08:09)
[2023-07-24] MEDS: SODIUM CHLORIDE 1 GM TABLET PO ×2 (08:09→16:18)
[2023-07-24] MEDS: APIXABAN 5 MG TABLET 10 MG PO ×2 (08:10→21:13)
[2023-07-24] MEDS: SERTRALINE HCL 50 MG TABLET 200 MG PO (08:10)
[2023-07-24] MEDS: MEMANTINE 10 MG TABLET PO ×2 (08:11→16:18)
[2023-07-24] MEDS: ANASTROZOLE (*CHEMO) 1 MG TABLET PO (08:11)
[2023-07-24] MEDS: ATORVASTATIN 10 MG TABLET PO (08:11)
[2023-07-24] MEDS: EMPAGLIFLOZIN 10 MG TABLET PO (08:11)
[2023-07-24] MEDS: FERROUS SULFATE 325 MG TABLET DR BY MOUTH ×2 (08:11→16:18)
[2023-07-24] MEDS: TOLNAFTATE 1% POWDER 45 GM BTL 1 APPLIC TOPICAL ×2 (08:11→21:13)
[2023-07-24] MEDS: CYANOCOBALAMIN 1,000 MCG TABLET 1000 MCG PO (08:11)
--- NOTE | 2023-07-24 09:58 | P.PNNP_ITS ---
Progress Note: A&P Assessment and Plan (1) Hyponatremia: Code(s): E87.1 - Hypo-osmolality and hyponatremia Status: Acute Assessment and Plan: * hyponatremia * new and noted during this hospitalization * risk factors for low sodium: * recent findings of pulmonary emboli (acute) * history of breast cancer but TIFF so far * asthma/COPD * SSRI use * thiazide diuretic (indapamide) * diastolic heart failure * history of hypothyroidism * evaluation to date: * TSH okay * cortisol above 15 so no adrenal insufficiency. * SPEP/UPEP and serum/urine osmo penidng * indapamide has been held.on fluid restriction * ordered Zoloft be reduced to 100 * On salt tabs furosemide 20 b.i.d., and 1200cc fluid restriction. * sodium not changed yesterday afternoon so I gave her 3% saline for a small dose. * Sodium up to 126 today. * Will check a sodium again this afternoon make sure it is the same or increasing. * Most likely the hyponatremia is related to the pulmonary emboli. Possibly some underlying effects from the sertraline in the indapamide (2) Pulmonary embolism: Qualifiers: Pulmonary embolism type: multiple subsegmental (without acute cor pulmonale) Qualified Code(s): I26.94 - Multiple subsegmental pulmonary emboli without acute cor pulmonale Code(s): I26.99 - Other pulmonary embolism without acute cor pulmonale Status: Acute Assessment and Plan: * as noted by admission imaging * on anticoagulation (3) Essential (primary) hypertension: Code(s): I10 - Essential (primary) hypertension Status: Chronic Assessment and Plan: * Systolic 103 today. * follow trend Subjective Date/time seen: 07/24/23 09:58 Interval history: patient is alert. She is eating some breakfast. No chest pain or shortness of breath Exam Narrative: General: elderly female in NAD Heart: normal S1 and S2; no rub no gallop Lungs: decreased at bases Abdomen: soft, nontender, nondistended, positive bowel sounds Extremities: 1 to2+ bilateral edema Skin: no rash Objective Data Vital Signs Vital Signs: Vital Signs - 24 hr 07/23/23 10:01 07/23/23 10:02 07/23/23 14:00 Temperature 97.4 F L Pulse Rate 82 82 59 L Respiratory Rate 18 Blood Pressure 98/65 L Pulse Oximetry 94 Oxygen Delivery 07/23/23 21:09 07/23/23 21:10 07/23/23 22:00 Temperature 98.2 F Pulse Rate 63 59 L Respiratory Rate 16 Blood Pressure 102/72 Pulse Oximetry 97 Oxygen Delivery Room Air 07/23/23 23:00 07/24/23 06:00 Temperature 97.5 F L Pulse Rate 51 L Respiratory Rate 20 Blood Pressure 103/58 L Pulse Oximetry 98 98 Oxygen Delivery Autopap Intake/Output Intake/Output: Intake & Output 07/21/23 07/22/23 07/23/23 07/24/23 23:59 23:59 23:59 23:59 Intake Total 1400 790 600 200 Balance 1400 790 600 200 Meds/Results Medications: Active Medications Generic Name Dose Route Start Last Admin Trade Name Freq PRN Reason Stop Dose Admin Anast
--- NOTE | 2023-07-24 09:58 | PM.PNNEP ---
Progress Note: A&P Assessment and Plan (1) Hyponatremia: Code(s): E87.1 - Hypo-osmolality and hyponatremia Status: Acute Assessment and Plan: hyponatremia new and noted during this hospitalization risk factors for low sodium: recent findings of pulmonary emboli (acute) history of breast cancer but TIFF so far asthma/COPD SSRI use thiazide diuretic (indapamide) diastolic heart failure history of hypothyroidism evaluation to date: TSH okay cortisol above 15 so no adrenal insufficiency. SPEP/UPEP and serum/urine osmo penidng indapamide has been held.on fluid restriction ordered Zoloft be reduced to 100 On salt tabs furosemide 20 b.i.d., and 1200cc fluid restriction. sodium not changed yesterday afternoon so I gave her 3% saline for a small dose. Sodium up to 126 today. Will check a sodium again this afternoon make sure it is the same or increasing. Most likely the hyponatremia is related to the pulmonary emboli. Possibly some underlying effects from the sertraline in the indapamide (2) Pulmonary embolism: Qualifiers: Pulmonary embolism type: multiple subsegmental (without acute cor pulmonale) Qualified Code(s): I26.94 - Multiple subsegmental pulmonary emboli without acute cor pulmonale Code(s): I26.99 - Other pulmonary embolism without acute cor pulmonale Status: Acute Assessment and Plan: as noted by admission imaging on anticoagulation (3) Essential (primary) hypertension: Code(s): I10 - Essential (primary) hypertension Status: Chronic Assessment and Plan: Systolic 103 today. follow trend Subjective Date/time seen: 07/24/23 09:58 Interval history: patient is alert. She is eating some breakfast. No chest pain or shortness of breath Exam Narrative: General: elderly female in NAD Heart: normal S1 and S2; no rub no gallop Lungs: decreased at bases Abdomen: soft, nontender, nondistended, positive bowel sounds Extremities: 1 to2+ bilateral edema Skin: no rash Objective Data Vital Signs Vital Signs: Vital Signs - 24 hr 07/23/23 10:01 07/23/23 10:02 07/23/23 14:00 Temperature 97.4 F L Pulse Rate 82 82 59 L Respiratory Rate 18 Blood Pressure 98/65 L Pulse Oximetry 94 Oxygen Delivery 07/23/23 21:09 07/23/23 21:10 07/23/23 22:00 Temperature 98.2 F Pulse Rate 63 59 L Respiratory Rate 16 Blood Pressure 102/72 Pulse Oximetry 97 Oxygen Delivery Room Air 07/23/23 23:00 07/24/23 06:00 Temperature 97.5 F L Pulse Rate 51 L Respiratory Rate 20 Blood Pressure 103/58 L Pulse Oximetry 98 98 Oxygen Delivery Autopap Intake/Output Intake/Output: Intake & Output 07/21/23 07/22/23 07/23/23 07/24/23 23:59 23:59 23:59 23:59 Intake Total 1400 790 600 200 Balance 1400 790 600 200 Meds/Results Medications: Active Medications Generic Name Dose Route Start Last Admin Trade Name Freq PRN Reason Stop Dose Admin Anastrozole 1 mg 07/16/23 09:00 07/24/23 08:11 Anastrozole (*Chemo) 1 Mg Tablet PO 1 mg DAILY KEATON Administration Apixaban 10 mg 07/19/23 09:00 07/24/23 08:10 Apixaban 5 Mg Tablet PO 07/25/23 21:01 10 mg Q12HR KEATON Administration Apixaban 5 mg 07/26/23 09:00 Apixaban 5 Mg Tablet PO Q12HR KEATON Atorvastatin Calcium 10 mg 07/17/23 09:00 07/24/23 08:11 Atorvastatin 10 Mg Tablet PO 10 mg DAILY KEATON Administration Cyanocobalamin 1,000 mcg 07/17/23 09:00 07/24/23 08:11 Cyanocobalamin 1,000 Mcg Tablet PO 1,000 mcg DAILY KEATON Administration Dextrose 12.5 gm 07/16/23 08:24 Dextrose 50% 25 Gm/50 Ml Syringe IV PUSH PRN PRN Hypoglycemia Protocol Donepezil HCl 10 mg 07/16/23 21:00 07/23/23 21:10 Donepezil Hcl 10 Mg Tablet PO 10 mg HS KEATON Administration Empagliflozin 10 mg 07/19/23 09:00 07/24/23 08:11 Empagliflozin 10 Mg Tab
[2023-07-24 11:39] LABS: Glucose Point of Care 112 mg/dl (65-105)
[2023-07-24 14:00] VITALS: BP 100/51; PULSE 64; RESP 12; TEMP 35.7; O2SAT 97
--- NOTE | 2023-07-24 14:47 | PM.IMPN ---
Progress Note: A&P Assessment and Plan (1) Pulmonary embolism: Qualifiers: Pulmonary embolism type: multiple subsegmental (without acute cor pulmonale) Qualified Code(s): I26.94 - Multiple subsegmental pulmonary emboli without acute cor pulmonale Code(s): I26.99 - Other pulmonary embolism without acute cor pulmonale Status: Acute (2) Tachycardia: Code(s): R00.0 - Tachycardia, unspecified Status: Acute (3) Obstructive sleep apnea on CPAP: Code(s): G47.33 - Obstructive sleep apnea (adult) (pediatric) Status: Acute (4) Hypothyroidism: Qualifiers: Hypothyroidism type: unspecified Qualified Code(s): E03.9 - Hypothyroidism, unspecified Code(s): E03.9 - Hypothyroidism, unspecified Status: Acute (5) Type 2 diabetes mellitus: Qualifiers: Diabetes mellitus alf insulin use: without alf use Diabetes mellitus complication status: without complication Qualified Code(s): E11.9 - Type 2 diabetes mellitus without complications Code(s): E11.9 - Type 2 diabetes mellitus without complications Status: Acute (6) Asthma-COPD overlap syndrome: Code(s): J44.89 - Other specified chronic obstructive pulmonary disease Status: Acute (7) Hyponatremia: Code(s): E87.1 - Hypo-osmolality and hyponatremia Status: Acute Plan Hoa Balbuena is a 73-year-old female presents to the ED with tachycardia. Patient otherwise did not have any symptoms no chest pain. Shortness of breath was present particularly with exertion. Upon arrival to the ED she was noted to have heart rate of 150s. Patient was given a dose of IV low pressure and her heart rhythm appeared to be sinus tach. Her BNP came back elevated at 6000. CTA chest was ordered which revealed bilateral psis subsegmental pulmonary embolism. No evidence of heart strain noted on the CT. Initial troponin was negative. She was started on IV heparin. Venous duplex negative. Echocardiogram showed low ejection fraction of 35-40% grade 1 diastolic dysfunction severe hypokinesis of the mid and apical inferolateral left ventricle Acute and principal conditions 1. Acute bilateral pulmonary emboli, in segmental arteries in all lobes. 2. Mild pulmonary edema. 3. Hyponatremia, Hypotonic. Maybe SIADH, diuretics 4. Physical deconditioning Rx: Fluid restriction, 1.2L Eliquis sOSM, 267 >> 272 Per Cardiology: Continue apixaban In regard to her cardiomyopathy, Continue succinate 50mg daily, jardiance 10mg daily and spironolactone 12.5mg daily.? Unable to use ARNI/NINA/ARB because of allergy.? She will need an ischemic evaluation at some point. Stable from a cardiac standpoint.? Further adjustments to her medical regimen can be made as an outpatient.? Cardiology will sign off.? Please call with questions. Hyponatremia: 07/20/23: Will likely discharge tomorrow 07/21/23: Will hold back due to hyponatremia; will consult nephrology; sOSM pending 07/22/23: Restrict fluids to 1L daily; Add NaCl tabs 07/23/2023: Follow-up closely with Nephrology for management of hyponatremia. Continue with oral Lasix and the sodium chloride pills 07/24/2023: Sodium continues to improve from 121-126. Monitor closely. Follow-up with nephrology recommendations Tinea cruris: Patient has fungal infection in the groin and abdominal folds. Continue with antifungal cream. Added Diflucan 200 mg p.o. daily. Chronic and stable conditions 1. History of breast cancer and on anti estrogen therapy 2. Hypotension mild could be related with medications which included Lopressor and Lasix that she received. Continue to monitor. Improved 3. Sinus tachycardia likely due to PE. TSH low. Metoprolol added. 07/24/2023: Metoprolol held today as patient's heart rate is in 50s in and BP is soft 4. New cardiomyopathy possible takotsubo or tachycardia induced. Cardiology consulted. On metoprolol. She is allergic
[2023-07-24 16:30] LABS: Glucose Point of Care 113 mg/dl (65-105)
[2023-07-24 16:40] LABS: Glucose Point of Care 107 mg/dl (65-105)
[2023-07-24 17:20] LABS: Sodium 125 mmol/L (137-145)
[2023-07-24] MEDS: DONEPEZIL HCL 10 MG TABLET PO (21:13)
[2023-07-24 21:18] LABS: Glucose Point of Care 113 mg/dl (65-105)
[2023-07-24 22:00] VITALS: BP 95/52; PULSE 76; RESP 20; TEMP 36.3; O2SAT 96
[2023-07-24 23:00] VITALS: PULSE 63; O2SAT 99
[2023-07-25 02:00] VITALS: O2SAT 97
[2023-07-25 05:44] VITALS: BP 101/54; PULSE 73; RESP 20; TEMP 36.2; O2SAT 95
[2023-07-25] MEDS: LEVOTHYROXINE SODIUM 100 MCG TABLET PO (06:22)
[2023-07-25 06:47] LABS: Basophils Absolute Auto 0.1 K/mm3 (0.0-0.1); Basophils Percent Auto 1.2 % (0.2-1.2); Eosinophils Absolute Auto 0.2 K/mm3 (0-0.3); Eosinophils Percent Auto 5.2 % (0-4.4); Hemoglobin 13.5 g/dL (12.0-15.0); Immature Granulocyte Absolute 0.01 K/mm3 (0.00-0.031); Immature Granulocyte Percent A 0.2 % (0-0.5); Lymphocytes Absolute Auto 0.83 K/mm3 (0.9-3.2); Lymphocytes Percent Auto 20.7 % (18.3-44.2); Mean Corpuscular HGB Conc 32.9 g/dl (32-36); Mean Corpuscular Hemoglobin 28.4 pg (26-34); Mean Corpuscular Volume 86.3 fl (80-100); Mean Platelet Volume 10.6 fl (7.4-10.4); Monocytes Absolute Auto 0.6 K/mm3 (0.1-0.6); Monocytes Percent Auto 14.5 % (2.6-8.5); Neutrophils Absolute Auto 2.3 K/mm3 (1.3-6.7); Neutrophils Percent Auto 58.2 % (45.5-73.1); Platelet Count Result 213 k/mm3 (150-375); Red Blood Count 4.75 M/mm3 (4.2-5.4); Red Cell Distribution Width 13.7 % (11.5-14.5)
[2023-07-25 07:16] LABS: Alanine Aminotransferase 16 U/L (6-35); Albumin Level 3.8 g/dL (3.5-5.1); Alkaline Phosphatase 63 U/L (38-126); Anion Gap 7 mmol/L (4-12); Aspartate Amino Transferase 24 U/L (14-36); Bilirubin,Total 0.8 mg/dL (0.2-1.3); Blood Urea Nitrogen 23 mg/dL (7-17); Calcium 8.9 mg/dL (8.4-10.2); Carbon Dioxide 28 mmol/L (22-30); Chloride 94 mmol/L (98-107); Estimated CRCL calculation 51 ml/min; Estimated Glomerular Filt Rate 48; Glucose 97 mg/dL (65-110); Potassium 3.4 mmol/L (3.4-5.0); Sodium 129 mmol/L (137-145)
[2023-07-25 07:56] LABS: Glucose Point of Care 98 mg/dl (65-105)
[2023-07-25] MEDS: SPIRONOLACTONE 12.5 MG TABLET PO (10:35)
[2023-07-25] MEDS: APIXABAN 5 MG TABLET 10 MG PO ×2 (10:35→20:36)
[2023-07-25] MEDS: SODIUM CHLORIDE 1 GM TABLET PO ×2 (10:35→17:00)
[2023-07-25] MEDS: FLUCONAZOLE 100 MG TABLET 200 MG PO (10:35)
[2023-07-25] MEDS: FUROSEMIDE 20 MG TABLET PO ×2 (10:36→17:00)
[2023-07-25] MEDS: MEMANTINE 10 MG TABLET PO ×2 (10:36→17:00)
[2023-07-25] MEDS: CHOLECALCIFEROL 1,000 UNITS TABLET 1000 UNITS PO (10:36)
[2023-07-25] MEDS: CYANOCOBALAMIN 1,000 MCG TABLET 1000 MCG PO (10:36)
[2023-07-25] MEDS: ATORVASTATIN 10 MG TABLET PO (10:36)
[2023-07-25] MEDS: FERROUS SULFATE 325 MG TABLET DR BY MOUTH ×2 (10:36→17:00)
[2023-07-25] MEDS: SERTRALINE HCL 50 MG TABLET 100 MG PO (10:37)
[2023-07-25] MEDS: ANASTROZOLE (*CHEMO) 1 MG TABLET PO (10:37)
[2023-07-25] MEDS: TOLNAFTATE 1% POWDER 45 GM BTL 1 APPLIC TOPICAL ×2 (10:37→20:37)
[2023-07-25] MEDS: EMPAGLIFLOZIN 10 MG TABLET PO (10:37)
[2023-07-25 11:20] LABS: Glucose Point of Care 136 mg/dl (65-105)
--- NOTE | 2023-07-25 12:11 | PM.PNNEP ---
Progress Note: A&P Assessment and Plan (1) Hyponatremia: Code(s): E87.1 - Hypo-osmolality and hyponatremia Status: Acute Assessment and Plan: acute as noted during this hospitalization risk factors for low sodium: recent findings of pulmonary emboli (acute) history of breast cancer asthma/COPD SSRI use thiazide diuretic (indapamide) diastolic heart failure history of hypothyroidism evaluation to date: TSH okay cortisol above 15 so no adrenal insufficiency. SPEP/UPEP and serum/urine osmo pending indapamide on hold on fluid restriction Zoloft has been reduced to 100mg remains on salt tabs + furosemide 20 b.i.d along with 1200cc fluid restriction. suspect low sodium is related to the pulmonary emboli with some possibly underlying effects from the sertraline in the indapamide follow repeat sodium levels (2) Pulmonary embolism: Qualifiers: Pulmonary embolism type: multiple subsegmental (without acute cor pulmonale) Qualified Code(s): I26.94 - Multiple subsegmental pulmonary emboli without acute cor pulmonale Code(s): I26.99 - Other pulmonary embolism without acute cor pulmonale Status: Acute Assessment and Plan: as noted by admission imaging on anticoagulation (3) Essential (primary) hypertension: Code(s): I10 - Essential (primary) hypertension Status: Chronic Assessment and Plan: reasonable control follow trend of hemodynamics Will continue to follow. Subjective Date/time seen: 07/25/23 12:11 Interval history: Follow-up for acute hyponatremia. Chart reviewed since last seen -- sodium appears to be doing better with current interventions/therapy (fluid restriction & salt tabs + lasix and dosing with 3% saline); no apparent distress noted at the time of my visit other than mild weakness/fatigue; no events overnight or earlier this morning. Exam Narrative: General: elderly female in NAD Heart: normal S1 and S2; no rub Lungs: decreased at bases Abdomen: soft, nontender, nondistended, positive bowel sounds Extremities: no cyanosis or clubbing; 1 to 2+ bilateral edema Skin: no nodules Objective Data Vital Signs Vital Signs: Vital Signs Temp Pulse Resp BP Pulse Ox O2 Del Method 07/25/23 12:00 97.6 F 72 20 103/70 95 07/25/23 10:30 Room Air 07/25/23 05:44 97.1 F L 73 20 101/54 L 95 07/25/23 02:00 97 Autopap 07/24/23 21:10 Room Air 07/24/23 23:00 63 99 Autopap 07/24/23 22:00 97.4 F L 76 20 95/52 L 96 Intake/Output Intake/Output: Intake & Output 07/22/23 07/23/23 07/24/23 07/25/23 23:59 23:59 23:59 23:59 Intake Total 336 765 7924 238 Balance 858 510 4075 238 Meds/Results Medications: Active Medications Generic Name Dose Route Start Last Admin Trade Name Freq PRN Reason Stop Dose Admin Anastrozole 1 mg 07/16/23 09:00 07/25/23 10:37 Anastrozole (*Chemo) 1 Mg Tablet PO 1 mg DAILY KEATON Administration Apixaban 10 mg 07/19/23 09:00 07/25/23 10:35 Apixaban 5 Mg Tablet PO 07/25/23 21:01 10 mg Q12HR KEATON Administration Apixaban 5 mg 07/26/23 09:00 Apixaban 5 Mg Tablet PO Q12HR KEATON Atorvastatin Calcium 10 mg 07/17/23 09:00 07/25/23 10:36 Atorvastatin 10 Mg Tablet PO 10 mg DAILY KEATON Administration Cyanocobalamin 1,000 mcg 07/17/23 09:00 07/25/23 10:36 Cyanocobalamin 1,000 Mcg Tablet PO 1,000 mcg DAILY KEATON Administration Dextrose 12.5 gm 07/16/23 08:24 Dextrose 50% 25 Gm/50 Ml Syringe IV PUSH PRN PRN Hypoglycemia Protocol Donepezil HCl 10 mg 07/16/23 21:00 07/24/23 21:13 Donepezil Hcl 10 Mg Tablet PO 10 mg HS KEATON Administration Empagliflozin 10 mg 07/19/23 09:00 07/25/23 10:37 Empagliflozin 10 Mg Tablet PO 10 mg DAILY KEATON Administration Ferrous Sulfate 325 mg 07/16/23 17:00 07/25/23 10:36 Ferrous Sulfate 325 Mg Table
--- NOTE | 2023-07-25 12:11 | P.PNNP_ITS ---
Progress Note: A&P Assessment and Plan (1) Hyponatremia: Code(s): E87.1 - Hypo-osmolality and hyponatremia Status: Acute Assessment and Plan: * acute * as noted during this hospitalization * risk factors for low sodium: * recent findings of pulmonary emboli (acute) * history of breast cancer * asthma/COPD * SSRI use * thiazide diuretic (indapamide) * diastolic heart failure * history of hypothyroidism * evaluation to date: * TSH okay * cortisol above 15 so no adrenal insufficiency. * SPEP/UPEP and serum/urine osmo pending * indapamide on hold * on fluid restriction * Zoloft has been reduced to 100mg * remains on salt tabs + furosemide 20 b.i.d along with 1200cc fluid restriction. * suspect low sodium is related to the pulmonary emboli with some possibly underlying effects from the sertraline in the indapamide * follow repeat sodium levels (2) Pulmonary embolism: Qualifiers: Pulmonary embolism type: multiple subsegmental (without acute cor pulmonale) Qualified Code(s): I26.94 - Multiple subsegmental pulmonary emboli without acute cor pulmonale Code(s): I26.99 - Other pulmonary embolism without acute cor pulmonale Status: Acute Assessment and Plan: * as noted by admission imaging * on anticoagulation (3) Essential (primary) hypertension: Code(s): I10 - Essential (primary) hypertension Status: Chronic Assessment and Plan: * reasonable control * follow trend of hemodynamics Will continue to follow. Subjective Date/time seen: 07/25/23 12:11 Interval history: Follow-up for acute hyponatremia. Chart reviewed since last seen -- sodium appears to be doing better with current interventions/therapy (fluid restriction & salt tabs + lasix and dosing with 3% saline); no apparent distress noted at the time of my visit other than mild weakness/fatigue; no events overnight or earlier this morning. Exam Narrative: General: elderly female in NAD Heart: normal S1 and S2; no rub Lungs: decreased at bases Abdomen: soft, nontender, nondistended, positive bowel sounds Extremities: no cyanosis or clubbing; 1 to 2+ bilateral edema Skin: no nodules Objective Data Vital Signs Vital Signs: Vital Signs Temp Pulse Resp BP Pulse Ox O2 Del Method 07/25/23 12:00 97.6 F 72 20 103/70 95 07/25/23 10:30 Room Air 07/25/23 05:44 97.1 F L 73 20 101/54 L 95 07/25/23 02:00 97 Autopap 07/24/23 21:10 Room Air 07/24/23 23:00 63 99 Autopap 07/24/23 22:00 97.4 F L 76 20 95/52 L 96 Intake/Output Intake/Output: Intake & Output 07/22/23 07/23/23 07/24/23 07/25/23 23:59 23:59 23:59 23:59 Intake Total 669 234 1664 238 Balance 961 843 1169 238 Meds/Results Medications: Active Medications Generic Name Dose Route Start Last Admin Trade Name Khalif PRN Reason Stop Dose Admin Anastrozole 1 mg 07/16/23 09:00 07/25/23 10:37 Anastrozole (*Chemo) 1 Mg Tablet PO 1 mg DAILY KEATON Administration Apixaban 10 mg 07/19/23 09:00 07/25/23 10:35 Apixaban 5 Mg Tablet PO 07/25/23 21:01 10 mg Q12HR KEATON Administratio
[2023-07-25 14:00] VITALS: BP 103/70; PULSE 72; RESP 20; TEMP 36.4; O2SAT 95
[2023-07-25 16:23] LABS: Glucose Point of Care 97 mg/dl (65-105)
--- NOTE | 2023-07-25 17:13 | PC.NURSE ---
I have reviewed and agree with Ally's charting.
--- NOTE | 2023-07-25 17:36 | PM.IMPN ---
Progress Note: A&P Assessment and Plan (1) Pulmonary embolism: Qualifiers: Pulmonary embolism type: multiple subsegmental (without acute cor pulmonale) Qualified Code(s): I26.94 - Multiple subsegmental pulmonary emboli without acute cor pulmonale Code(s): I26.99 - Other pulmonary embolism without acute cor pulmonale Status: Acute (2) Tachycardia: Code(s): R00.0 - Tachycardia, unspecified Status: Acute (3) Obstructive sleep apnea on CPAP: Code(s): G47.33 - Obstructive sleep apnea (adult) (pediatric) Status: Acute (4) Hypothyroidism: Qualifiers: Hypothyroidism type: unspecified Qualified Code(s): E03.9 - Hypothyroidism, unspecified Code(s): E03.9 - Hypothyroidism, unspecified Status: Acute (5) Type 2 diabetes mellitus: Qualifiers: Diabetes mellitus correction insulin use: without correction use Diabetes mellitus complication status: without complication Qualified Code(s): E11.9 - Type 2 diabetes mellitus without complications Code(s): E11.9 - Type 2 diabetes mellitus without complications Status: Acute (6) Asthma-COPD overlap syndrome: Code(s): J44.89 - Other specified chronic obstructive pulmonary disease Status: Acute (7) Hyponatremia: Code(s): E87.1 - Hypo-osmolality and hyponatremia Status: Acute Plan Hoa Balbuena is a 73-year-old female presents to the ED with tachycardia. Patient otherwise did not have any symptoms no chest pain. Shortness of breath was present particularly with exertion. Upon arrival to the ED she was noted to have heart rate of 150s. Patient was given a dose of IV low pressure and her heart rhythm appeared to be sinus tach. Her BNP came back elevated at 6000. CTA chest was ordered which revealed bilateral psis subsegmental pulmonary embolism. No evidence of heart strain noted on the CT. Initial troponin was negative. She was started on IV heparin. Venous duplex negative. Echocardiogram showed low ejection fraction of 35-40% grade 1 diastolic dysfunction severe hypokinesis of the mid and apical inferolateral left ventricle Acute and principal conditions 1. Acute bilateral pulmonary emboli, in segmental arteries in all lobes. 2. Mild pulmonary edema. 3. Hyponatremia, Hypotonic. Maybe SIADH, diuretics 4. Physical deconditioning Rx: Fluid restriction, 1.2L Eliquis sOSM, 267 >> 272 Per Cardiology: Continue apixaban In regard to her cardiomyopathy, Continue succinate 50mg daily, jardiance 10mg daily and spironolactone 12.5mg daily.? Unable to use ARNI/NINA/ARB because of allergy.? She will need an ischemic evaluation at some point. Stable from a cardiac standpoint.? Further adjustments to her medical regimen can be made as an outpatient.? Cardiology will sign off.? Please call with questions. Hyponatremia: 07/20/23: Will likely discharge tomorrow 07/21/23: Will hold back due to hyponatremia; will consult nephrology; sOSM pending 07/22/23: Restrict fluids to 1L daily; Add NaCl tabs 07/23/2023: Follow-up closely with Nephrology for management of hyponatremia. Continue with oral Lasix and the sodium chloride pills 07/24/2023: Sodium continues to improve from 121-126. Monitor closely. Follow-up with nephrology recommendations 07/25/2023: Sodium level today at 129. Patient feeling better. Likely DC to SNF in am. Tinea cruris: Patient has fungal infection in the groin and abdominal folds. Continue with antifungal cream. Added Diflucan 200 mg p.o. daily. Chronic and stable conditions 1. History of breast cancer and on anti estrogen therapy 2. Hypotension mild could be related with medications which included Lopressor and Lasix that she received. Continue to monitor. Improved 3. Sinus tachycardia likely due to PE. TSH low. Metoprolol added. 07/24/2023: Metoprolol held today as patient's heart rate is in 50s in and BP is soft 4. New cardiomyopathy possible t
[2023-07-25 20:37] LABS: Glucose Point of Care 139 mg/dl (65-105)
[2023-07-25] MEDS: DONEPEZIL HCL 10 MG TABLET PO (20:37)
[2023-07-25 20:43] VITALS: BP 98/73; PULSE 65; RESP 17; TEMP 36.6; O2SAT 94
[2023-07-25 23:15] VITALS: PULSE 67; O2SAT 99
[2023-07-26 02:30] VITALS: O2SAT 98
[2023-07-26 05:13] VITALS: BP 111/71; PULSE 72; RESP 16; TEMP 36.4; O2SAT 96
[2023-07-26] MEDS: LEVOTHYROXINE SODIUM 100 MCG TABLET PO (05:40)
[2023-07-26 06:28] LABS: Basophils Percent Auto 1.2 % (0.2-1.2); Eosinophils Absolute Auto 0.2 K/mm3 (0-0.3); Eosinophils Percent Auto 5.2 % (0-4.4); Hematocrit 40.8 % (37.0-47.0); Hemoglobin 13.2 g/dL (12.0-15.0); Immature Granulocyte Absolute 0.01 K/mm3 (0.00-0.031); Immature Granulocyte Percent A 0.3 % (0-0.5); Lymphocytes Absolute Auto 0.89 K/mm3 (0.9-3.2); Lymphocytes Percent Auto 27.5 % (18.3-44.2); Mean Corpuscular HGB Conc 32.4 g/dl (32-36); Mean Corpuscular Hemoglobin 27.8 pg (26-34); Mean Corpuscular Volume 86.1 fl (80-100); Mean Platelet Volume 10.8 fl (7.4-10.4); Monocytes Absolute Auto 0.5 K/mm3 (0.1-0.6); Monocytes Percent Auto 14.5 % (2.6-8.5); Neutrophils Absolute Auto 1.7 K/mm3 (1.3-6.7); Neutrophils Percent Auto 51.3 % (45.5-73.1); Platelet Count Result 232 k/mm3 (150-375); Red Blood Count 4.74 M/mm3 (4.2-5.4); Red Cell Distribution Width 13.9 % (11.5-14.5); White Blood Count 3.2 K/mm3 (4.5-10.0)
[2023-07-26 06:40] LABS: Alanine Aminotransferase 15 U/L (6-35); Albumin Level 3.8 g/dL (3.5-5.1); Alkaline Phosphatase 68 U/L (38-126); Anion Gap 7 mmol/L (4-12); Aspartate Amino Transferase 20 U/L (14-36); Bilirubin,Total 0.8 mg/dL (0.2-1.3); Blood Urea Nitrogen 20 mg/dL (7-17); Calcium 9.1 mg/dL (8.4-10.2); Carbon Dioxide 27 mmol/L (22-30); Chloride 95 mmol/L (98-107); Estimated CRCL calculation 50 ml/min; Estimated Glomerular Filt Rate 48; Glucose 105 mg/dL (65-110); Potassium 3.3 mmol/L (3.4-5.0); Sodium 129 mmol/L (137-145)
[2023-07-26 08:00] LABS: Glucose Point of Care 113 mg/dl (65-105)
[2023-07-26] MEDS: TOLNAFTATE 1% POWDER 45 GM BTL 1 APPLIC TOPICAL ×2 (09:00→21:28)
[2023-07-26] MEDS: SPIRONOLACTONE 12.5 MG TABLET PO (09:06)
[2023-07-26] MEDS: SODIUM CHLORIDE 1 GM TABLET PO ×2 (09:06→16:21)
[2023-07-26] MEDS: APIXABAN 5 MG TABLET PO ×2 (09:06→21:27)
[2023-07-26] MEDS: FLUCONAZOLE 100 MG TABLET 200 MG PO (09:06)
[2023-07-26] MEDS: FUROSEMIDE 20 MG TABLET PO ×2 (09:06→16:21)
[2023-07-26] MEDS: MEMANTINE 10 MG TABLET PO ×2 (09:06→16:21)
[2023-07-26] MEDS: EMPAGLIFLOZIN 10 MG TABLET PO (09:06)
[2023-07-26] MEDS: KCL 20 MEQ/SW 100 ML 100 ML 50 MEQ IVPB (09:07)
[2023-07-26] MEDS: CYANOCOBALAMIN 1,000 MCG TABLET 1000 MCG PO (09:07)
[2023-07-26] MEDS: CHOLECALCIFEROL 1,000 UNITS TABLET 1000 UNITS PO (09:07)
[2023-07-26] MEDS: ATORVASTATIN 10 MG TABLET PO (09:07)
[2023-07-26] MEDS: ANASTROZOLE (*CHEMO) 1 MG TABLET PO (09:07)
[2023-07-26] MEDS: FERROUS SULFATE 325 MG TABLET DR BY MOUTH ×2 (09:07→16:21)
[2023-07-26] MEDS: SERTRALINE HCL 50 MG TABLET 100 MG PO (09:07)
--- NOTE | 2023-07-26 10:49 | P.PNNP_ITS ---
Progress Note: A&P Assessment and Plan (1) Hyponatremia: Code(s): E87.1 - Hypo-osmolality and hyponatremia Status: Acute Assessment and Plan: * acute * as noted during this hospitalization * risk factors for low sodium: * recent findings of pulmonary emboli (acute) * history of breast cancer * asthma/COPD * SSRI use * thiazide diuretic (indapamide) * diastolic heart failure * history of hypothyroidism * evaluation to date: * TSH okay * cortisol in range * SPEP/UPEP and serum/urine osmo pending * indapamide on hold and sertraline has been reduced to 100mg * remains on salt tabs + furosemide 20 b.i.d along with 1200cc fluid restriction. * suspect low sodium is related to the pulmonary emboli with some possibly underlying effects from the sertraline in the indapamide * follow repeat sodium levels (2) Pulmonary embolism: Qualifiers: Pulmonary embolism type: multiple subsegmental (without acute cor pulmonale) Qualified Code(s): I26.94 - Multiple subsegmental pulmonary emboli without acute cor pulmonale Code(s): I26.99 - Other pulmonary embolism without acute cor pulmonale Status: Acute Assessment and Plan: * as noted by admission imaging * on anticoagulation (3) Essential (primary) hypertension: Code(s): I10 - Essential (primary) hypertension Status: Chronic Assessment and Plan: * reasonable control * follow trend of hemodynamics Not opposed to discharge from renal perspective if otherwise medically stable -- the hope is that her sodium will eventually normalize and she can be weaned off salt tabs/lasix/fluid restriction but will need intermittent labs to ensure sodium stays stable. Will continue to follow. Subjective Date/time seen: 07/26/23 10:49 Interval history: Follow-up for acute hyponatremia. Sodium remains relatively stable with current intervention/therapy; no apparent distress noted at the time of my visit; no issues/events overnight or earlier this morning; breathing remains stable; despite low sodium level, appears otherwise asymptomatic. Exam Narrative: General: elderly female in NAD Heart: normal S1 and S2; no rub Lungs: decreased at bases Abdomen: soft, nontender, nondistended, positive bowel sounds Extremities: no cyanosis or clubbing; 1 to 2+ bilateral edema Skin: warm and intact Objective Data Vital Signs Vital Signs: Vital Signs Temp Pulse Resp BP Pulse Ox O2 Del Method 07/26/23 09:07 Room Air 07/26/23 02:30 98 Autopap 07/26/23 05:13 97.5 F L 72 16 111/71 96 07/25/23 23:15 67 99 Autopap 07/25/23 20:35 Room Air 07/25/23 20:43 97.8 F 65 17 98/73 L 94 07/25/23 14:00 97.6 F 72 20 103/70 95 Intake/Output Intake/Output: Intake & Output 07/23/23 07/24/23 07/25/23 07/26/23 23:59 23:59 23:59 23:59 Intake Total 600 1220 834 120 Output Total 765 Balance 600 1220 69 120 Meds/Results Medications: Active Medications Generic Name Dose Route Start Last Admin Trade Name Freq PRN Reason Stop Dose Admin Anastrozole 1 mg 07/16/23 09:00 07/26/23 09:07 Anastrozole (*Chemo) 1 Mg Tabl
--- NOTE | 2023-07-26 10:49 | PM.PNNEP ---
Progress Note: A&P Assessment and Plan (1) Hyponatremia: Code(s): E87.1 - Hypo-osmolality and hyponatremia Status: Acute Assessment and Plan: acute as noted during this hospitalization risk factors for low sodium: recent findings of pulmonary emboli (acute) history of breast cancer asthma/COPD SSRI use thiazide diuretic (indapamide) diastolic heart failure history of hypothyroidism evaluation to date: TSH okay cortisol in range SPEP/UPEP and serum/urine osmo pending indapamide on hold and sertraline has been reduced to 100mg remains on salt tabs + furosemide 20 b.i.d along with 1200cc fluid restriction. suspect low sodium is related to the pulmonary emboli with some possibly underlying effects from the sertraline in the indapamide follow repeat sodium levels (2) Pulmonary embolism: Qualifiers: Pulmonary embolism type: multiple subsegmental (without acute cor pulmonale) Qualified Code(s): I26.94 - Multiple subsegmental pulmonary emboli without acute cor pulmonale Code(s): I26.99 - Other pulmonary embolism without acute cor pulmonale Status: Acute Assessment and Plan: as noted by admission imaging on anticoagulation (3) Essential (primary) hypertension: Code(s): I10 - Essential (primary) hypertension Status: Chronic Assessment and Plan: reasonable control follow trend of hemodynamics Not opposed to discharge from renal perspective if otherwise medically stable -- the hope is that her sodium will eventually normalize and she can be weaned off salt tabs/lasix/fluid restriction but will need intermittent labs to ensure sodium stays stable. Will continue to follow. Subjective Date/time seen: 07/26/23 10:49 Interval history: Follow-up for acute hyponatremia. Sodium remains relatively stable with current intervention/therapy; no apparent distress noted at the time of my visit; no issues/events overnight or earlier this morning; breathing remains stable; despite low sodium level, appears otherwise asymptomatic. Exam Narrative: General: elderly female in NAD Heart: normal S1 and S2; no rub Lungs: decreased at bases Abdomen: soft, nontender, nondistended, positive bowel sounds Extremities: no cyanosis or clubbing; 1 to 2+ bilateral edema Skin: warm and intact Objective Data Vital Signs Vital Signs: Vital Signs Temp Pulse Resp BP Pulse Ox O2 Del Method 07/26/23 09:07 Room Air 07/26/23 02:30 98 Autopap 07/26/23 05:13 97.5 F L 72 16 111/71 96 07/25/23 23:15 67 99 Autopap 07/25/23 20:35 Room Air 07/25/23 20:43 97.8 F 65 17 98/73 L 94 07/25/23 14:00 97.6 F 72 20 103/70 95 Intake/Output Intake/Output: Intake & Output 07/23/23 07/24/23 07/25/23 07/26/23 23:59 23:59 23:59 23:59 Intake Total 600 1220 834 120 Output Total 765 Balance 600 1220 69 120 Meds/Results Medications: Active Medications Generic Name Dose Route Start Last Admin Trade Name Khalif PRN Reason Stop Dose Admin Anastrozole 1 mg 07/16/23 09:00 07/26/23 09:07 Anastrozole (*Chemo) 1 Mg Tablet PO 1 mg DAILY KEATON Administration Apixaban 5 mg 07/26/23 09:00 07/26/23 09:06 Apixaban 5 Mg Tablet PO 5 mg Q12HR KEATON Administration Atorvastatin Calcium 10 mg 07/17/23 09:00 07/26/23 09:07 Atorvastatin 10 Mg Tablet PO 10 mg DAILY KEATON Administration Cyanocobalamin 1,000 mcg 07/17/23 09:00 07/26/23 09:07 Cyanocobalamin 1,000 Mcg Tablet PO 1,000 mcg DAILY KEATON Administration Dextrose 12.5 gm 07/16/23 08:24 Dextrose 50% 25 Gm/50 Ml Syringe IV PUSH PRN PRN Hypoglycemia Protocol Donepezil HCl 10 mg 07/16/23 21:00 07/25/23 20:37 Donepezil Hcl 10 Mg Tablet PO 10 mg HS KEATON Administration Empagliflozin 10 mg 07/19/23 09:00 07/26/23 09:06 Empagliflozin 10 Mg Tablet PO 10 mg DAILY KEATON Admi
[2023-07-26 11:21] LABS: Glucose Point of Care 123 mg/dl (65-105)
[2023-07-26 12:04] LABS: Creatinine, Random Urine 65 mg/dL (20-275); Total Protein/Creatinine Ratio 185 mg/g creat (24-184)
[2023-07-26 14:00] VITALS: BP 114/70; PULSE 73; RESP 20; TEMP 36.7; O2SAT 96
[2023-07-26 15:13] LABS: Osmolality, Urine 542 mOsm/kg (50-1200)
[2023-07-26 16:23] LABS: Glucose Point of Care 115 mg/dl (65-105)
--- NOTE | 2023-07-26 17:14 | PM.IMPN ---
Progress Note: A&P Assessment and Plan (1) Pulmonary embolism: Qualifiers: Pulmonary embolism type: multiple subsegmental (without acute cor pulmonale) Qualified Code(s): I26.94 - Multiple subsegmental pulmonary emboli without acute cor pulmonale Code(s): I26.99 - Other pulmonary embolism without acute cor pulmonale Status: Acute (2) Tachycardia: Code(s): R00.0 - Tachycardia, unspecified Status: Acute (3) Obstructive sleep apnea on CPAP: Code(s): G47.33 - Obstructive sleep apnea (adult) (pediatric) Status: Acute (4) Hypothyroidism: Qualifiers: Hypothyroidism type: unspecified Qualified Code(s): E03.9 - Hypothyroidism, unspecified Code(s): E03.9 - Hypothyroidism, unspecified Status: Acute (5) Type 2 diabetes mellitus: Qualifiers: Diabetes mellitus mcfp insulin use: without mcfp use Diabetes mellitus complication status: without complication Qualified Code(s): E11.9 - Type 2 diabetes mellitus without complications Code(s): E11.9 - Type 2 diabetes mellitus without complications Status: Acute (6) Asthma-COPD overlap syndrome: Code(s): J44.89 - Other specified chronic obstructive pulmonary disease Status: Acute (7) Hyponatremia: Code(s): E87.1 - Hypo-osmolality and hyponatremia Status: Acute Plan Hoa Balbuena is a 73-year-old female presents to the ED with tachycardia. Patient otherwise did not have any symptoms no chest pain. Shortness of breath was present particularly with exertion. Upon arrival to the ED she was noted to have heart rate of 150s. Patient was given a dose of IV low pressure and her heart rhythm appeared to be sinus tach. Her BNP came back elevated at 6000. CTA chest was ordered which revealed bilateral psis subsegmental pulmonary embolism. No evidence of heart strain noted on the CT. Initial troponin was negative. She was started on IV heparin. Venous duplex negative. Echocardiogram showed low ejection fraction of 35-40% grade 1 diastolic dysfunction severe hypokinesis of the mid and apical inferolateral left ventricle Acute and principal conditions 1. Acute bilateral pulmonary emboli, in segmental arteries in all lobes. 2. Mild pulmonary edema. 3. Hyponatremia, Hypotonic. Maybe SIADH, diuretics 4. Physical deconditioning Rx: Fluid restriction, 1.2L Eliquis sOSM, 267 >> 272 Per Cardiology: Continue apixaban In regard to her cardiomyopathy, Continue succinate 50mg daily, jardiance 10mg daily and spironolactone 12.5mg daily.? Unable to use ARNI/NINA/ARB because of allergy.? She will need an ischemic evaluation at some point. Stable from a cardiac standpoint.? Further adjustments to her medical regimen can be made as an outpatient.? Cardiology will sign off.? Please call with questions. Hyponatremia: 07/20/23: Will likely discharge tomorrow 07/21/23: Will hold back due to hyponatremia; will consult nephrology; sOSM pending 07/22/23: Restrict fluids to 1L daily; Add NaCl tabs 07/23/2023: Follow-up closely with Nephrology for management of hyponatremia. Continue with oral Lasix and the sodium chloride pills 07/24/2023: Sodium continues to improve from 121-126. Monitor closely. Follow-up with nephrology recommendations 07/25/2023: Sodium level today at 129. Patient feeling better. Likely DC to SNF in am. 07/26/2023: Sodium level still at 129. Continue with current management. Bed arranged for DC planning back to SNF in am. Tinea cruris: Patient has fungal infection in the groin and abdominal folds. Continue with antifungal cream. Added Diflucan 200 mg p.o. daily. Hypokalemia: 07/26/2023: IV KCL replacement ordered for mild hypokalemia t 3.2. Chronic and stable conditions 1. History of breast cancer and on anti estrogen therapy 2. Hypotension mild could be related with medications which included Lopressor and Lasix that she received. Continue t
[2023-07-26 20:00] VITALS: O2SAT 94
[2023-07-26 20:29] VITALS: O2SAT 97
[2023-07-26 21:15] VITALS: BP 100/57; PULSE 107; RESP 20; TEMP 35.8; O2SAT 94
[2023-07-26 21:22] LABS: Glucose Point of Care 146 mg/dl (65-105)
[2023-07-26] MEDS: DONEPEZIL HCL 10 MG TABLET PO (21:27)
[2023-07-27 01:00] VITALS: O2SAT 98
[2023-07-27 05:10] VITALS: PULSE 111; O2SAT 96
[2023-07-27] MEDS: LEVOTHYROXINE SODIUM 100 MCG TABLET PO (05:40)
[2023-07-27 06:15] VITALS: BP 105/65; PULSE 112; RESP 20; TEMP 36.3; O2SAT 94
[2023-07-27 06:18] LABS: Basophils Absolute Auto 0.1 K/mm3 (0.0-0.1); Basophils Percent Auto 1.2 % (0.2-1.2); Eosinophils Absolute Auto 0.2 K/mm3 (0-0.3); Eosinophils Percent Auto 5.2 % (0-4.4); Hematocrit 41.4 % (37.0-47.0); Hemoglobin 13.6 g/dL (12.0-15.0); Immature Granulocyte Absolute 0.01 K/mm3 (0.00-0.031); Immature Granulocyte Percent A 0.2 % (0-0.5); Lymphocytes Absolute Auto 1.08 K/mm3 (0.9-3.2); Lymphocytes Percent Auto 26.9 % (18.3-44.2); Mean Corpuscular HGB Conc 32.9 g/dl (32-36); Mean Corpuscular Hemoglobin 28.2 pg (26-34); Mean Corpuscular Volume 85.7 fl (80-100); Mean Platelet Volume 10.8 fl (7.4-10.4); Monocytes Absolute Auto 0.6 K/mm3 (0.1-0.6); Monocytes Percent Auto 14.2 % (2.6-8.5); Neutrophils Absolute Auto 2.1 K/mm3 (1.3-6.7); Neutrophils Percent Auto 52.3 % (45.5-73.1); Platelet Count Result 244 k/mm3 (150-375); Red Blood Count 4.83 M/mm3 (4.2-5.4)
[2023-07-27 06:26] LABS: Alanine Aminotransferase 15 U/L (6-35); Albumin Level 4.1 g/dL (3.5-5.1); Alkaline Phosphatase 71 U/L (38-126); Anion Gap 7 mmol/L (4-12); Aspartate Amino Transferase 22 U/L (14-36); Bilirubin,Total 0.7 mg/dL (0.2-1.3); Blood Urea Nitrogen 24 mg/dL (7-17); Calcium 9.5 mg/dL (8.4-10.2); Carbon Dioxide 27 mmol/L (22-30); Chloride 98 mmol/L (98-107); Estimated CRCL calculation 46 ml/min; Estimated Glomerular Filt Rate 44; Glucose 116 mg/dL (65-110); Potassium 3.6 mmol/L (3.4-5.0); Sodium 132 mmol/L (137-145)
[2023-07-27 07:54] LABS: Glucose Point of Care 118 mg/dl (65-105)
[2023-07-27 08:48] LABS: Albumin 3.4 g/dL (3.8-4.8); Alpha 1 Globulin 0.3 g/dL (0.2-0.3); Alpha 2 Globulin 0.6 g/dL (0.5-0.9); Beta 1 Globulin 0.4 g/dL (0.4-0.6); Gamma Globulin 0.6 g/dL (0.8-1.7)
[2023-07-27] MEDS: APIXABAN 5 MG TABLET PO (09:18)
[2023-07-27] MEDS: SODIUM CHLORIDE 1 GM TABLET PO (09:18)
[2023-07-27] MEDS: MEMANTINE 10 MG TABLET PO (09:18)
[2023-07-27] MEDS: SPIRONOLACTONE 12.5 MG TABLET PO (09:18)
[2023-07-27] MEDS: ATORVASTATIN 10 MG TABLET PO (09:18)
[2023-07-27] MEDS: CHOLECALCIFEROL 1,000 UNITS TABLET 1000 UNITS PO (09:18)
[2023-07-27] MEDS: FUROSEMIDE 20 MG TABLET PO (09:18)
[2023-07-27] MEDS: FLUCONAZOLE 100 MG TABLET 200 MG PO (09:18)
[2023-07-27] MEDS: SERTRALINE HCL 50 MG TABLET 100 MG PO (09:18)
[2023-07-27] MEDS: TOLNAFTATE 1% POWDER 45 GM BTL 1 APPLIC TOPICAL (09:19)
[2023-07-27] MEDS: ANASTROZOLE (*CHEMO) 1 MG TABLET PO (09:19)
[2023-07-27] MEDS: CYANOCOBALAMIN 1,000 MCG TABLET 1000 MCG PO (09:19)
[2023-07-27] MEDS: EMPAGLIFLOZIN 10 MG TABLET PO (09:19)
[2023-07-27] MEDS: FERROUS SULFATE 325 MG TABLET DR BY MOUTH (09:19)
[2023-07-27 09:21] VITALS: PULSE 112
[2023-07-27] MEDS: METOPROLOL SUCCINATE EXT REL 50 MG TABCR PO (09:21)
[2023-07-27 11:26] LABS: Glucose Point of Care 116 mg/dl (65-105)
--- NOTE | 2023-07-27 15:16 | PM.DS ---
DS: Admitting Diagnosis Discharge Date 07/27/2023: Admitting Diagnosis (1) Pulmonary embolism: ?Qualifiers: ?Pulmonary embolism type:?multiple subsegmental (without acute cor pulmonale)? Qualified Code(s):?I26.94 - Multiple subsegmental pulmonary emboli without acute cor pulmonale ?Code(s): I26.99 - Other pulmonary embolism without acute cor pulmonale ?Status:?Acute (2) Tachycardia: ?Code(s): R00.0 - Tachycardia, unspecified ?Status:?Acute (3) Obstructive sleep apnea on CPAP: ?Code(s): G47.33 - Obstructive sleep apnea (adult) (pediatric) ?Status:?Acute (4) Hypothyroidism: ?Qualifiers: ?Hypothyroidism type:?unspecified? Qualified Code(s):?E03.9 - Hypothyroidism, unspecified ?Code(s): E03.9 - Hypothyroidism, unspecified ?Status:?Acute (5) Type 2 diabetes mellitus: ?Qualifiers: ?Diabetes mellitus press tender long goods insulin use:?without press tender long goods use??Diabetes mellitus complication status:?without complication? Qualified Code(s):?E11.9 - Type 2 diabetes mellitus without complications ?Code(s): E11.9 - Type 2 diabetes mellitus without complications ?Status:?Acute (6) Asthma-COPD overlap syndrome: ?Code(s): J44.89 - Other specified chronic obstructive pulmonary disease ?Status:?Acute DS: Discharge Diagnosis Discharge Diagnosis (1) Hyponatremia: Code(s): E87.1 - Hypo-osmolality and hyponatremia Status: Acute (2) Mixed hyperlipidemia: Code(s): E78.2 - Mixed hyperlipidemia Status: Acute (3) Hypothyroidism: Qualifiers: Hypothyroidism type: acquired Qualified Code(s): E03.9 - Hypothyroidism, unspecified Code(s): E03.9 - Hypothyroidism, unspecified Status: Acute (4) Essential (primary) hypertension: Code(s): I10 - Essential (primary) hypertension Status: Chronic (5) Current chronic use of systemic steroids: Code(s): Z79.52 - senior living (current) use of systemic steroids Status: Acute (6) Cardiomegaly: Code(s): I51.7 - Cardiomegaly Status: Acute (7) senior living current use of anticoagulant: Code(s): Z79.01 - equipment [employer] (current) use of anticoagulants Status: Acute (8) Acute hypokalemia: Code(s): E87.6 - Hypokalemia Status: Acute (9) Cancer of left breast: Qualifiers: Breast location: unspecified site of breast Estrogen receptor status: unspecified Patient sex: female Qualified Code(s): C50.912 - Malignant neoplasm of unspecified site of left female breast Code(s): C50.912 - Malignant neoplasm of unspecified site of left female breast Status: Resolved (10) COPD with emphysema: Qualifiers: Emphysema type: unspecified Qualified Code(s): J43.9 - Emphysema, unspecified Code(s): J43.9 - Emphysema, unspecified Status: Acute (11) Obstructive sleep apnea on CPAP: Code(s): G47.33 - Obstructive sleep apnea (adult) (pediatric); Z99.89 - Dependence on other enabling machines and devices Status: Acute (12) Bullous pemphigoid: Code(s): L12.0 - Bullous pemphigoid Status: Acute (13) Diastolic congestive heart failure: Qualifiers: Heart failure chronicity: chronic Qualified Code(s): I50.32 - Chronic diastolic (congestive) heart failure Code(s): I50.30 - Unspecified diastolic (congestive) heart failure Status: Acute (14) Rheumatoid arthritis: Qualifiers: Rheumatoid arthritis location: unspecified site Rheumatoid factor presence: without rheumatoid factor Qualified Code(s): M06.00 - Rheumatoid arthritis without rheumatoid factor, unspecified site Code(s): M06.9 - Rheumatoid arthritis, unspecified Status: Acute (15) Hypomagnesemia: Code(s): E83.42 - Hypomagnesemia Status: Acute (16) DVT prophylaxis: Code(s): Z29.9 - Encounter for prophylactic measures, unspecified Status: Acute (17) [place]o
== END 2023-07-27 16:10 | DRG 176 ==
LOC: ANHED 23:32 → ANHIMU 23:42 → ANH3MEDSUR 07-20 16:54
PROVIDERS: Internal Medicine; Internal Medicine Nephrology; Admitting Provider Internal Medicine; Emergency Provider Emergency Medicine; PCP Family Medicine; Visit Provider Family Medicine
DX: I26.94 Multiple subsegmental thrombotic pulmonary emboli without acute cor pulmonale (principal); E87.1 Hypo-osmolality and hyponatremia; Z68.41 Body mass index [BMI] 40.0-44.9, adult; I42.9 Cardiomyopathy, unspecified; I48.92 Unspecified atrial flutter; B35.6 Tinea cruris; E03.9 Hypothyroidism, unspecified; E87.6 Hypokalemia; E66.9 Obesity, unspecified; E11.9 Type 2 diabetes mellitus without complications; E78.5 Hyperlipidemia, unspecified; G47.33 Obstructive sleep apnea (adult) (pediatric); I48.0 Paroxysmal atrial fibrillation; I10 Essential (primary) hypertension; I95.9 Hypotension, unspecified; J43.9 Emphysema, unspecified; M06.00 Rheumatoid arthritis without rheumatoid factor, unspecified site; Z79.52 Long term (current) use of systemic steroids; Z79.01 Long term (current) use of anticoagulants; Z99.89 Dependence on other enabling machines and devices; Z85.3 Personal history of malignant neoplasm of breast; Z90.12 Acquired absence of left breast and nipple; Z79.84 Long term (current) use of oral hypoglycemic drugs; Z98.41 Cataract extraction status, right eye; Z98.42 Cataract extraction status, left eye; Z96.1 Presence of intraocular lens; Z90.49 Acquired absence of other specified parts of digestive tract
CPT/HCPCS: 36415; 71045; 71275; 80053; 80069; 81003; 81050; 82533; 82570; 82948; 83605; 83735; 83880; 83930; 83935; 84100; 84155; 84156; 84165; 84166; 84295; 84300; 84439; 84443; 84484; 84540; 85025; 85027; 85610; 85730; 93005; 93306; 93308; 93970; 96361; 96374; 96376; 97110; 97161; 97165; 97530; 97535; 99285; A9270; C8924; J1644; J1940; J2405; J3480; J7030; J7040; J7131; Q9957; Q9967

== ENCOUNTER 2023-09-08 09:09 | Outpatient (CLI) | payer MEDICARE, SELFPAY ==
--- NOTE | ~2023-09-08 | XR_ITS ---
XR abdomen/kub 1V 09/08/2023 10:04 INDICATION: Chronic kidney disease TECHNIQUE: KUB COMPARISON: None FINDINGS: Bowel gas pattern is normal. Moderate colonic fecal loading. 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 There are pelvic phleboliths. There is no evidence of free air, mass, org anomegaly, ascites or obstruction. No abnormal calculi are seen. There are atherosclerotic changes i n the upper abdomen. The bones appear intact. IMPRESSION: 1: No acute abdominal abnormality identified. Reviewed, dictated and finalized at location B.
[2023-09-08 09:55] LABS: Hematocrit 39.8 % (37.0-47.0); Hemoglobin 12.8 g/dL (12.0-15.0); Mean Corpuscular HGB Conc 32.2 g/dl (32-36); Mean Corpuscular Hemoglobin 27.9 pg (26-34); Mean Corpuscular Volume 86.7 fl (80-100); Mean Platelet Volume 10.5 fl (7.4-10.4); Platelet Count Result 225 k/mm3 (150-375); Red Blood Count 4.59 M/mm3 (4.2-5.4); Red Cell Distribution Width 14.4 % (11.5-14.5); White Blood Count 3.6 K/mm3 (4.5-10.0)
[2023-09-08 10:01] LABS: Total Protein Urine Random 6 mg/dL
[2023-09-08 10:08] LABS: Albumin Level 4.2 g/dL (3.5-5.1); Anion Gap 12 mmol/L (4-12); Blood Urea Nitrogen 34 mg/dL (7-17); Carbon Dioxide 31 mmol/L (22-30); Chloride 94 mmol/L (98-107); Estimated Glomerular Filt Rate 31; Glucose 134 mg/dL (65-110); Phosphorus 3.4 mg/dL (2.5-4.5); Potassium 3.1 mmol/L (3.4-5.0); Sodium 137 mmol/L (137-145); Uric Acid 8.9 mg/dL (2.5-7.5)
[2023-09-08 10:09] LABS: Appearance Urine Cloudy (Clear); Bacteria Urine 4+ /hpf; Bilirubin Urine Negative (Negative); Blood Urine Negative (Negative); Color Urine Yellow (Yellow); Glucose Urine UA Trace mg/dL (Negative); Ketones Urine Negative (Negative); Leukocyte Esterase Ur 1+ LEU/UL (Negative); Need Manual Microscopic Reviewed; Nitrate Urine Positive (Negative); Protein Urine Negative (Negative); RBC Urine 0-2 /hpf (0-2); Specific Grav Ur 1.015 (1.001-1.035); Squamous Epithelial Cell Urine Moderate /hpf (Few); Urobilinogen Urine 0.2 mg/dL (<2.0)
[2023-09-08 10:30] LABS: Creatinine Urine 153.5 mg/dL; Ur Ttl Prot Creatinine Ratio 0.04 mg/mg (0-0.20)
[2023-09-08 10:39] LABS: Parathyroid Intact 131.4 pg/mL (7.5-53.5)
[2023-09-08 11:11] LABS: Add Urine Microscopic? YES
== END 2023-09-08 09:10 | disposition home or self-care (01) ==
LOC: ANHLAB 09:14
PROVIDERS: PCP Family Medicine; Visit Provider Internal Medicine Nephrology
DX: E87.1 Hypo-osmolality and hyponatremia (principal); N18.31 Chronic kidney disease, stage 3a; I26.94 Multiple subsegmental thrombotic pulmonary emboli without acute cor pulmonale
CPT/HCPCS: 36415; 74018; 80069; 81001; 82570; 83970; 84156; 84550; 85027

== ENCOUNTER 2024-02-05 12:36 | Inpatient (IN) | payer MEDICARE, SELFPAY ==
[2024-02-05] VITALS (32 sets, daily range): BP systolic 70–108; BP diastolic 41–76; PULSE 60–93; RESP 12–21; TEMP 36.4–36.6; O2SAT 90–100; BMI 33.7
--- NOTE | ~2024-02-05 | XR_ITS ---
EXAMINATION: XR chest 1V portable DATE: 02/08/2024 22:30 INDICATION: Shortness of breath. TECHNIQUE: A single frontal view of the chest was obtained on 2 radiographs. COMPARISON: Chest single view 02/07/2024, CT abdomen and pelvis 02/05/2024 FINDINGS: There is a diffuse interstitial pattern, consistent with mild pulmonary edema. There are sm all pleural effusions. There is mild atelectasis at left lung base. No pneumothorax. Cardiomegaly is noted. There is a right internal jugular port with tip at superior cavoatrial junction. There are jaswinder gical clips in left axilla. IMPRESSION: 1. Mild pulmonary edema. 2. Small pleural effusions. 3. Cardiomegaly. Reviewed, dictated and finalized at location A. JUSTICE
--- NOTE | ~2024-02-05 | XR_ITS ---
EXAMINATION: XR chest 1V portable DATE: 02/11/2024 06:01 INDICATION: Pulmonary edema TECHNIQUE: frontal view of the chest was obtained. COMPARISON: Chest radiograph dated 02/09/2024 FINDINGS: Right internal jugular central venous port catheter with distal tip at the high right atrium. Gradien t of hazy airspace opacities in the bilateral mid and lower lung zones with blunting at costophrenic angles consistent with increased small bilateral posterior layering pleural effusions. Airspace opaci ties in the lower lung zones which could represent atelectasis or pneumonia. There is pulmonary vascu lar congestion but the prior pulmonary edema has improved. No pneumothorax. Cardiomegaly. Surgical cl ips at the left axilla. IMPRESSION: 1. Cardiomegaly with pulmonary vascular congestion but improvement in prior pulmonary edema. 2. Increased small bilateral pleural effusions with associated atelectasis versus pneumonia in the bi lateral lower lung zones. Reviewed, dictated and finalized at location A. [employer]Y FARM [employer]OR[employer] IMPRESSION: 1. Cardiomegaly with pulmonary vascular congestion but improvement in prior pul monary edema. 2. Increased small bilateral pleural effusions with associated atelectasis vers us pneumonia in the bilateral lower lung zones.
--- NOTE | ~2024-02-05 | XR_ITS ---
Portable chest x-ray Comparison: 02/08/2024 Clinical History: Shock Findings: Right-sided Mediport remains in place. Probable minimal pleural effusions. Probable COPD p attern. Cardiomediastinal silhouette is stable. Bones and soft tissues are unremarkable. Impression: Minimal pleural effusions. COPD. Possible superimposed mild pulmonary edema. Cardiomegaly and Mediport unchanged. Reviewed, dictated and finalized at location . RVISOR DRY PASTE Impression: Minimal pleural effusions. COPD. Possible superimposed mild pulmonary edema. Cardiomegaly and Mediport unchanged.
--- NOTE | ~2024-02-05 | CT_ITS ---
EXAMINATION: CT abdomen pelvis wo con DATE: 02/05/2024 16:10 INDICATION: Hypotension TECHNIQUE: Computed tomography (CT) of the abdomen and pelvis was performed without intravenous contr ast. Automated exposure control and iterative reconstruction technique were employed. Exam dose: 100 1.80 mGy-cm total exam DLP. COMPARISON: 09/08/[address] abdomen Right Port-A-Cath catheter tip is situated at the superior cavoatrial junction. FINDINGS: There is mild discoid atelectasis or scarring at the bases of both lower lobes. No basilar consolidat ion. Mild cardiomegaly. Left main, left anterior descending and right coronary artery calcifications. No pericardial or pleural effusion. There is evidence of prior left thoracotomy. Status post cholecystectomy. No hepatic, splenic or panc reatic space-occupying mass lesion is evident. There is prominent fatty infiltration/atrophy of the p ancreas. No bile duct or pancreatic duct dilatation. Normal morphology of the adrenal glands. Asymmetric right renal atrophy. No renal mass lesion or urinary tract calculus or hydroureteronephros is is detected. There is atherosclerotic scattered but normal caliber of the abdominal aorta, iliac and femoral arter ies. No intraperitoneal or retroperitoneal or pelvic mass lesion or adenopathy or ascites is noted. The uterus, adnexal areas and urinary bladder are unremarkable. No bowel obstruction, bowel wall thickening, pneumatosis or intraperitoneal free air is detected. There is some prominent subcutaneous fat soft tissue density and stranding with edema and/or cellulit is. Decubitus ulcer Involving the posteromedial right buttock. There is very prominent degenerative change at the lumbar apophyseal joints with associated grade 1 a nterolisthesis at L4-5. Diffuse idiopathic skeletal hyperostosis of the lower thoracic spine including L1. Bilateral hip osteoarthritis, particularly severe on the left. IMPRESSION: Mild cardiomegaly, coronary atherosclerosis Probable prior left thoracotomy Status post cholecystectomy Suggestion of decubitus ulcer and underlying inflammation capsularis and/or pulmonary edema of the me dial right buttock Extensive degenerative changes of the thoracic and lumbar spine and the hips, especially the left hip Reviewed, dictated and finalized at [facility]. Reviewed, dictated and finalized at location A. ERY CUTTER OPERATOR IMPRESSION: Mild cardiomegaly, coronary atherosclerosis Probable prior left thoracotomy Status post cholecystectomy Suggestion of decubitus ulcer and underlying inflammation capsularis and/or pul monary edema of the medial right buttock Extensive degenerative changes of the thoracic and lumbar spine and the hips, e specially the left hip
--- NOTE | ~2024-02-05 | XR_ITS ---
EXAMINATION: XR chest 2V DATE: 02/05/2024 13:52 INDICATION: Weakness. TECHNIQUE: Frontal and lateral views of the chest were obtained. COMPARISON: Chest single view 07/22/2023 FINDINGS: There is no pneumonia, pleural effusion, or pneumothorax. Cardiomegaly is noted. There is a right internal jugular port with tip at superior cavoatrial junction. There are surgical clips in le ft axilla. There are old healed left rib fractures. IMPRESSION: 1. Cardiomegaly. Reviewed, dictated and finalized at location A. ENGLISH TUTOR IMPRESSION: 1. Cardiomegaly.
--- NOTE | ~2024-02-05 | XR_ITS ---
Portable chest x-ray Comparison: 02/06/2024 Clinical History: Increased oxygen demand Findings: Right-sided Mediport unchanged. No focal consolidation or pleural effusion present. Possib le minimal interstitial prominence/COPD pattern. Cardiomediastinal silhouette is stable. Bones and s oft tissues are unremarkable. Impression: No acute consolidation or pleural effusion. Possible COPD or mild chronic interstitial change. Stable cardiomegaly. Stable Mediport. Reviewed, dictated and finalized at location M. ICAL CARE TECHNICIAN Impression: No acute consolidation or pleural effusion. Possible COPD or mild chronic interstitial change. Stable cardiomegaly. Stable Mediport.
--- NOTE | ~2024-02-05 | XR_ITS ---
XR chest 1V portable Ordering provider: Radha Ruvalcaba PA-C History: 74 years Female with . post cardiac arrest . Comparison: February 05, 2024 FINDINGS: MEDIASTINUM: The cardiac silhouette is slightly enlarged. Right Port-A-Cath with the tip overlying castillo perior vena cava. LUNGS: No effusions or pneumothorax. Possibility of opacification in the left lung base is not exclud ed. Bilateral fibrotic changes. OTHER: No free air under the diaphragm. IMPRESSION: Left basilar atelectasis versus pneumonia. Underlying fibrotic changes. Reviewed, dictated and finalized at location A. CTURAL DESIGN ENGINEER
--- NOTE | 2024-02-05 12:46 | ECG_ITS ---
Test Date: 2024-02-05 12:53:41 Measurements Intervals [place] Rate: 63 P: 35 [place]: 179 QRS: -13 QRSD: 74 T: 137 QT: 401 QTc: 412 Interpretive Statements SINUS RHYTHM LOW QRS VOLTAGE IN PRECORDIAL LEADS [QRS DEFLECTION < 1.0 mV IN CHEST LEADS] INFERIOR MYOCARDIAL INFARCTION , OF INDETERMINATE AGE [40+ ms Q WAVE AND/OR ST/T ABNORMALITY IN II/aVF] MODERATE T-WAVE ABNORMALITY, CONSIDER LATERAL ISCHEMIA [-0.1+ mV T WAVE IN I/aVL/V5/V6] No previous ECG available for comparison Electronically Signed On 02-05-2024 15:04:57 [employer] by René Shannon M.D.
--- NOTE | 2024-02-05 12:57 | ED.RECABL ---
HPI - Recheck/Abnormal Lab/Rx General Chief Complaint: Recheck/Abnormal Lab/Rx Stated Complaint: hypotension Time Seen by Provider: 02/05/24 12:48 History of Present Illness HPI narrative: 74-year-old female with a past medical history including breast cancer status post mastectomy, hypothyroidism, hypertension, hyperlipidemia, recently diagnosed pulmonary embolism several months prior. The presently taking Eliquis. She presents from her skilled care facility for concerns of hypotension. Patient appears at her baseline mentation presently denies any chest pain, shortness a breath, fever, chills, abdominal pain, urinary complaints. She was found to be hypotensive in the 60s to 70 systolic per prison and EMS. When she arrived here she is in the low 70s but appears dehydrated, is awake and answering questions. EMS also reports that patient has been losing weight over last month, less appetite and not eating or drinking appropriately. She has a history of sores on her buttocks and a recent UTI. Related Data Home Medications Medication Instructions Recorded Confirmed ascorbate calcium (vitamin C) 500 500 mg PO DAILY 05/26/21 02/05/24 mg tablet atorvastatin 10 mg tablet 10 mg PO DAILY 07/16/23 02/05/24 indapamide 1.25 mg tablet 1.25 mg PO DAILY 08/16/23 02/05/24 VITAMIN D-3 1000UNIT TAB 1 cap PO DAILY 02/05/24 02/05/24 anastrozole 1 mg tablet 1 mg PO DAILY 02/05/24 02/05/24 cyanocobalamin (vitamin B-12) 1,000 mcg PO DAILY 02/05/24 02/05/24 1,000 mcg tablet (Vitamin B-12) donepezil 10 mg tablet 10 mg PO QPM 02/05/24 02/05/24 ferrous sulfate 325 mg (65 mg 325 mg PO BID 02/05/24 02/05/24 iron) tablet (FeroSul) levothyroxine 112 mcg tablet 112 mcg PO DAILY 02/05/24 02/05/24 memantine 10 mg tablet 10 mg PO BID 02/05/24 02/05/24 metoprolol succinate 100 mg 100 mg PO DAILY 02/05/24 02/05/24 tablet,extended release 24 hr sertraline 100 mg tablet 200 mg PO DAILY 02/05/24 02/05/24 spironolactone 25 mg tablet 12.5 mg PO DAILY 02/05/24 02/05/24 Allergies Allergy/AdvReac Type Severity Reaction Status Date / Time amoxicillin Allergy Severe DIFFICULTY Verified 09/06/23 10:56 BREATHING/HIVES Iodinated Contrast Media Allergy Severe Anaphylaxis Verified 09/06/23 10:56 lisinopril Allergy Severe Swelling Verified 09/06/23 10:56 of Lip/Tongue/Throat methotrexate Allergy Severe Hives Verified 09/06/23 10:56 Penicillins Allergy Severe DIFFICULTY Verified 09/06/23 10:56 BREATHING/HIVES tetracycline Allergy Severe Hives Verified 09/06/23 10:56 metformin Allergy Unknown Jittery Verified 09/06/23 10:56 adhesive tape AdvReac Intermediate SKIN PEELS Verified 09/06/23 10:56 OFF codeine AdvReac Mild NAUSEA/VOMI Verified 09/06/23 10:56 TING furosemide AdvReac Unknown DOESN'T Verified 09/06/23 10:56 REMEMBER ioversol AdvReac Unknown DOESN'T Verified 09/06/23 10:56 REMEMBER Review of Systems Review of Systems: as reviewed above in [facility] Past Medical History Medical History (Updated 02/05/24 @ 22:24 by Aj Mosquera MD) Anemia of chronic disease Anxiety Asthma-COPD overlap syndrome Ataxia Breast cancer, left breast Left breast biopsy in December 2018 showed poorly differentiated ductal carcinoma, ER/MA positive, HER2 positive, and Ki - 67 expression of 30%. Neoadjuvant chemotherapy with TCH and Perjeta. status left breast mastectomy with sentinel lymph node biopsy on 07/31/2019. Bullous pemphigoid On daily prednisone. Cardiomegaly Colon polyps COPD with emphysema Cyst Degenerative arthritis of knee, bilateral Dementia on donepezil and memantine Depression with anxiety Diastolic congestive heart failure Echocardiogram in December 2018 showed normal left ventricular size, moderate concentric left ventricular hypertrophy with impaired diastolic relaxation grade 1 and ejection fraction of 65%. 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 History of hysterectomy History of partial mastectomy of left breast Approximately 2018 History of total mastectomy of left breast (~07/2019) History of tubal ligation Hx of cholecystectomy Status post cataract extraction of both eyes with insertion of intraocular lens Family History Family History Father Acute myocardial infarction Father Cerebrovascular accident Acute myocardial infarction Tobacco abuse Mother Cerebrovascular accident Sibling No problems noted. Social History Social History Social History: The patient is never and has no children. 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 She is currently in assisted living at [facility], and has been there for a couple of months since she started chemotherapy. She also owns a home in [place], where she hopes to return. Her [id number], Sofia, is her surrogate decision maker. She wishes to be a full code. Smoking status: Never smoker Second hand tobacco smoke exposure: Yes Alcohol intake: former Alcohol use details: Occasional Substance use: never Substance use type: does not use Do You Feel Safe in your Home?: Yes Lack of Transportation: No Lack of Food: Never True Current Housing: I Do Not Have Housing Concerned About Future Housing: No Difficulty Paying Gas/Electric Bills: No Difficulty Paying for Meds: No Currently Unemployed: No Education: Bachelor's Degree Difficulty w/ Childcare or Family Care: No Living arrangements: [facility] Occupation/Education: retired Additional occupation/education comments: 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 Gender identity (if verbalized by the patient): Female Sexual Orientation (if Verbalized by the Patient): Straight or Heterosexual Spiritual care concerns: No Agree to blood products: Yes Exam Narrative: GENERAL: chronically ill-appearing, not any acute distress, awake and answering questions HEAD: [Normocephalic, atraumatic.] EYES: [PERRLA and EOMI.] ENT: Nares clear, no rhinorrhea or epistaxis. Mucous membranes moist. NECK: Supple. CHEST: [Clear to auscultation. No respiratory distress.] HEART: [Regular rate and rhythm]. No murmur heard. [Normal peripheral pulses.] ABDOMEN: [Soft, nondistended], [nontender], [No rigidity or guarding] EXTREMITIES: Normal range of motion. [No edema.] SKIN: Warm, dry, no rash. Decubitus ulcers of the right intergluteal fold 2 separate lesions approximately 2 cm in diameter, no active purulence, drainage or tenderness to palpation. Stage III NEURO: [No focal deficits]. Alert and oriented [x3.] PSYCH: [Normal mood and affect.] Course Vital Signs Vital signs: Vital Signs Temperature 36.4 C 02/05/24 12:28 Pulse Rate 80 02/05/24 12:28 Respiratory Rate 18 02/05/24 12:28 Blood Pressure 77/44 L 02/05/24 12:28 Pulse Oximetry 98 02/05/24 12:28 Oxygen Delivery Room Air 02/05/24 12:28 Temperature 36.4 C 02/05/24 12:28 Pulse Rate 68 02/05/24 22:01 Respiratory Rate 20 02/05/24 22:01 Blood Pressure 102/57 L 02/05/24 22:01 Pulse Oximetry 100 02/05/24 22:01 Oxygen Delivery Room Air 02/05/24 12:28 Procedures Central Line Placement Right Femoral: Central Line Date: 02/05/24 Central Line Time: 18:45 Discussed w/ the patient/family/POA,the placement of a central venous catheter, including its clinical necessity/indication & associated potential risks, benifits and alternatives.: Yes The patient/family/POA understand(s) and acknowledge(s) the need to proceed with central venous catheter insertion as an important element of the patient's clinical management.: Yes Time Out Performed: Yes Patient Placed on Monitor/Pulse Ox: Yes Max. Sterile Barrier Technique: Caps, large sterile sheet and hand hygiene Central Line Prep: 2% chlorhexidine scrub and sterile drapes applied Technique: US-Guided Local Anesthetic: lidocaine 1% and none Amount of anesthesia used (mL): 5 Ultrasound Used for Placement: Yes Central Line Lumen Inserted: triple Post Procedure: sutured in place, good blood return, all ports aspirated, flushed, capped and sterile dressing applied Post Procedure X-Ray: other (none needed for femoral access. confirmed with blood return and line flushing) Patient Tolerated Procedure: well and no complications Complications: none MDM - Recheck/Abnormal Lab/Rx MDM Narrative Medical decision making narrative: 74-year-old female with a past medical history including hypertension, hypothyroidism, COPD, breast cancer status post mastectomy, recently diagnosed PE on Eliquis. Presenting from her skilled care facility for hypotension. Patient was found to be in the 70 systolic by EMS and given a small fluid bolus with mild improvement her symptoms. Patient herself is awake alert and answering all questions. Denies any acute complaints such as nauseous, vomiting, syncope, chest pain, shortness a breath, urinary complaints. reported potential recent UTI. Overall patient appears chronically ill and is hypotensive in the 70s. Decub ulcers stage 3, no pain or purulence. Fluid bolus running by EMS. She is not tachycardic or have a fever. septic bundle was initiated empirically given her presentation and concern for potential infectious process such as sepsis leading to hypotension but could also be a combination of malnourishment, failure to thrive, dehydration, kidney failure. she was given a 30 cc/kg bolus of fluids, started on Rocephin, EKG, chest x-ray, CBC, CMP, urinalysis with straight catheterization ordered. Patient's laboratory assessments came back with no significant leukocytosis. Slight anemia 10.5 which is slightly lower than her previous levels of 12. No active signs of bleeding, denies any melena or dark stools. Platelets within normal limits. Coagulation panel slightly prolonged. electrolytes show significant derangements including a critical potassium of 2.7 which was repleted with IV potassium. BUN and creatinine elevations of 51 and 2.7 respectively indicative of renal intravascular volume depletion and dehydration. Negative initial troponin. Normal TSH. Negative lactic acid. Elevated CRP of 18.1, Albumin at a low 3.1. urinalysis without any signs of infection. Chest x-ray was independently reviewed and interpreted by radiology without any acute cardiopulmonary process but does have cardiomegaly. CT of the abdomen pelvis was ordered to further delineate any process that could be causing the refractory hypotension. Patient CT of the abdomen shows decubitus ulcer with underlying inflammation in the right medial buttock. Chronic changes throughout the spine and a previous cholecystectomy was evident. At this time patient was re-evaluated once again and still hypotensive with 1 blood pressure reading in the 70s despite adequate fluid resuscitation. Concern presently is for sepsis with potential source being her decubitus ulcer given the otherwise unremarkable workup. She does have a negative lactate and negative white count but does have an elevated CRP and CT scan findings of active inflammation. At this time we will start her on norepinephrine with a goal mean arterial pressure above 65. Right femoral line was placed with ultrasound guidance and refer above to see procedure note. I spoke to the field marketing manager Dr. Goldberg over the phone and relayed patient's imaging findings, laboratory assessment, clinical assessment and lack of response to fluids and need for pressors and antibiotics. We broaden her antibiotics to include vancomycin cefepime at this time. Patient was accepted to the ICU and I spoke to the hospitalist currently being covered by the midlevel provider who was agreeable to plan of care as well. Patient has been stable for admission at this time is being boarded currently in the emergency department pending ICU bed. Medical Records Attestation: I reviewed the patient's medical records. Lab Data Attestation: I reviewed the patient's lab results. 02/05/24 12:59 02/05/24 12:59 Labs: Lab Results 02/05/24 02/05/24 02/05/24 Range/Units 12:59 12:59 12:59 WBC 5.7 (4.5-10.0) K/mm3 RBC 3.58 L (4.2-5.4) M/mm3 Hgb 10.5 L (12.0-15.0) g/dL Hct 31.6 L (37.0-47.0) % MCV 88.3 (80-100) fl MCH 29.3 (26-34) pg MCHC 33.2 (32-36) g/dl RDW 14.0 (11.5-14.5) % Plt Count 215 (150-375) k/mm3 MPV 10.8 H (7.4-10.4) fl Immature Gran % (Auto) 0.5 (0-0.5) % Neut % (Auto) 74.6 H (45.5-73.1) % Lymph % (Auto) 10.1 L (18.3-44.2) % [place] % (Auto) 12.9 H (2.6-8.5) % Eos % (Auto) 1.6 (0-4.4) % Baso % (Auto) 0.3 (0.2-1.2) % Lymph # (Auto) 0.58 L (0.9-3.2) K/mm3 [place] # (Auto) 0.7 H (0.1-0.6) K/mm3 Eos # (Auto) 0.1 (0-0.3) K/mm3 Baso # (Auto) 0.0 (0.0-0.1) K/mm3 Abs Immat Gran (auto) 0.03 (0.00-0.031) K/mm3 Absolute Neuts (auto) 4.3 (1.3-6.7) K/mm3 Absolute Nucleated RBC 0.000 (0.0-0.012) K/mm3 Nucleated RBC % 0.0 (0.0-0.2) % PT 19.8 H (11.1-14.7) Seconds INR 1.6 APTT 37.0 H (22.3-36.8) Seconds Sodium Cancelled 135 L Potassium Cancelled 2.7 L* Chloride Cancelled Carbon Dioxide Anion Gap BUN Creatinine Estim Creat Clear Calc Estimated GFR Glucose Hemoglobin A1c (<5.7) % Lactic Acid (0.7-2.0) mmol/L Calcium Total Bilirubin AST ALT Alkaline Phosphatase Total Creatine Kinase (30-135) U/L Troponin I (0.000-0.034) ng/mL C-Reactive Protein (<1.0) mg/dL Total Protein Albumin Lipase (23-300) U/L TSH (Reflex) (0.465-4.68) uIU/mL Urine Color (Yellow) Urine Appearance (Clear) Urine pH (5.0-9.0) Ur Specific [place] (1.001-1.035) Urine Protein (Negative) mg/dL Urine Glucose (UA) (Negative) mg/dL Urine Ketones (Negative) mg/dL Ur Blood (Man) (Negative) Urine Nitrate (Negative) Urine Bilirubin (Negative) Urine Urobilinogen (<2.0) mg/dL Leukocyte Esterase Rfl (Negative) [place]ED[place]/UL U Random Total Protein mg/dL Ur Random Sodium meq/L Ur Random Urea MG/DL Urine Creatinine mg/dL Protein/Creat Ratio 2 (0-0.20) mg/mg 02/05/24 02/05/24 02/05/24 Range/Units 12:59 12:59 12:59 WBC (4.5-10.0) K/mm3 RBC (4.2-5.4) M/mm3 Hgb (12.0-15.0) g/dL Hct (37.0-47.0) % MCV (80-100) fl MCH (26-34) pg MCHC (32-36) g/dl RDW (11.5-14.5) % Plt Count (150-375) k/mm3 MPV (7.4-10.4) fl Immature Gran % (Auto) (0-0.5) % Neut % (Auto) (45.5-73.1) % Lymph % (Auto) (18.3-44.2) % [place] % (Auto) (2.6-8.5) % Eos % (Auto) (0-4.4) % Baso % (Auto) (0.2-1.2) % Lymph # (Auto) (0.9-3.2) K/mm3 [place] # (Auto) (0.1-0.6) K/mm3 Eos # (Auto) (0-0.3) K/mm3 Baso # (Auto) (0.0-0.1) K/mm3 Abs Immat Gran (auto) (0.00-0.031) K/mm3 Absolute Neuts (auto) (1.3-6.7) K/mm3 Absolute Nucleated RBC (0.0-0.012) K/mm3 Nucleated RBC % (0.0-0.2) % PT (11.1-14.7) Seconds INR APTT (22.3-36.8) Seconds Sodium Potassium Chloride 101 Carbon Dioxide Cancelled 22 Anion Gap Cancelled 12 BUN Cancelled Creatinine Estim Creat Clear Calc Estimated GFR Glucose Hemoglobin A1c (<5.7) % Lactic Acid (0.7-2.0) mmol/L Calcium Total Bilirubin AST ALT Alkaline Phosphatase Total Creatine Kinase (30-135) U/L Troponin I (0.000-0.034) ng/mL C-Reactive Protein (<1.0) mg/dL Total Protein Albumin Lipase (23-300) U/L TSH (Reflex) (0.465-4.68) uIU/mL Urine Color (Yellow) Urine Appearance (Clear) Urine pH (5.0-9.0) Ur Specific [place] (1.001-1.035) Urine Protein (Negative) mg/dL Urine Glucose (UA) (Negative) mg/dL Urine Ketones (Negative) mg/dL Ur Blood (Man) (Negative) Urine Nitrate (Negative) Urine Bilirubin (Negative) Urine Urobilinogen (<2.0) mg/dL Leukocyte Esterase Rfl (Negative) [place]/UL U Random Total Protein mg/dL Ur Random Sodium meq/L Ur Random Urea MG/DL Urine Creatinine mg/dL Protein/Creat Ratio 2 (0-0.20) mg/mg 02/05/24 02/05/24 02/05/24 Range/Units 12:59 12:59 12:59 WBC (4.5-10.0) K/mm3 RBC (4.2-5.4) M/mm3 Hgb (12.0-15.0) g/dL Hct (37.0-47.0) % MCV (80-100) fl MCH (26-34) pg MCHC (32-36) g/dl RDW (11.5-14.5) % Plt Count (150-375) k/mm3 MPV (7.4-10.4) fl Immature Gran % (Auto) (0-0.5) % Neut % (Auto) (45.5-73.1) % Lymph % (Auto) (18.3-44.2) % [place] % (Auto) (2.6-8.5) % Eos % (Auto) (0-4.4) % Baso % (Auto) (0.2-1.2) % Lymph # (Auto) (0.9-3.2) K/mm3 [place] # (Auto) (0.1-0.6) K/mm3 Eos # (Auto) (0-0.3) K/mm3 Baso # (Auto) (0.0-0.1) K/mm3 Abs Immat Gran (auto) (0.00-0.031) K/mm3 Absolute Neuts (auto) (1.3-6.7) K/mm3 Absolute Nucleated RBC (0.0-0.012) K/mm3 Nucleated RBC % (0.0-0.2) % PT (11.1-14.7) Seconds INR APTT (22.3-36.8) Seconds Sodium Potassium Chloride Carbon Dioxide Anion Gap BUN 51 H D Creatinine Cancelled 2.70 H Estim Creat Clear Calc Cancelled 18 Estimated GFR Cancelled Glucose Hemoglobin A1c (<5.7) % Lactic Acid (0.7-2.0) mmol/L Calcium Total Bilirubin AST ALT Alkaline Phosphatase Total Creatine Kinase (30-135) U/L Troponin I (0.000-0.034) ng/mL C-Reactive Protein (<1.0) mg/dL Total Protein Albumin Lipase (23-300) U/L TSH (Reflex) (0.465-4.68) uIU/mL Urine Color (Yellow) Urine Appearance (Clear) Urine pH (5.0-9.0) Ur Specific [place] (1.001-1.035) Urine Protein (Negative) mg/dL Urine Glucose (UA) (Negative) mg/dL Urine Ketones (Negative) mg/dL Ur Blood (Man) (Negative) Urine Nitrate (Negative) Urine Bilirubin (Negative) Urine Urobilinogen (<2.0) mg/dL Leukocyte Esterase Rfl (Negative) [place]/UL U Random Total Protein mg/dL Ur Random Sodium meq/L Ur Random Urea MG/DL Urine Creatinine mg/dL Protein/Creat Ratio 2 (0-0.20) mg/mg 02/05/24 02/05/24 02/05/24 Range/Units 12:59 12:59 12:59 WBC (4.5-10.0) K/mm3 RBC (4.2-5.4) M/mm3 Hgb (12.0-15.0) g/dL Hct (37.0-47.0) % MCV (80-100) fl MCH (26-34) pg MCHC (32-36) g/dl RDW (11.5-14.5) % Plt Count (150-375) k/mm3 MPV (7.4-10.4) fl Immature Gran % (Auto) (0-0.5) % Neut % (Auto) (45.5-73.1) % Lymph % (Auto) (18.3-44.2) % [place] % (Auto) (2.6-8.5) % Eos % (Auto) (0-4.4) % Baso % (Auto) (0.2-1.2) % Lymph # (Auto) (0.9-3.2) K/mm3 [place] # (Auto) (0.1-0.6) K/mm3 Eos # (Auto) (0-0.3) K/mm3 Baso # (Auto) (0.0-0.1) K/mm3 Abs Immat Gran (auto) (0.00-0.031) K/mm3 Absolute Neuts (auto) (1.3-6.7) K/mm3 Absolute Nucleated RBC (0.0-0.012) K/mm3 Nucleated RBC % (0.0-0.2) % PT (11.1-14.7) Seconds INR APTT (22.3-36.8) Seconds Sodium Potassium Chloride Carbon Dioxide Anion Gap BUN Creatinine Estim Creat Clear Calc Estimated GFR 17 L Glucose Cancelled 93 Hemoglobin A1c 6.5 H (<5.7) % Lactic Acid (0.7-2.0) mmol/L Calcium Cancelled 7.8 L Total Bilirubin Cancelled AST ALT Alkaline Phosphatase Total Creatine Kinase (30-135) U/L Troponin I (0.000-0.034) ng/mL C-Reactive Protein (<1.0) mg/dL Total Protein Albumin Lipase (23-300) U/L TSH (Reflex) (0.465-4.68) uIU/mL Urine Color (Yellow) Urine Appearance (Clear) Urine pH (5.0-9.0) Ur Specific [place] (1.001-1.035) Urine Protein (Negative) mg/dL Urine Glucose (UA) (Negative) mg/dL Urine Ketones (Negative) mg/dL Ur Blood (Man) (Negative) Urine Nitrate (Negative) Urine Bilirubin (Negative) Urine Urobilinogen (<2.0) mg/dL Leukocyte Esterase Rfl (Negative) [place]/UL U Random Total Protein mg/dL Ur Random Sodium meq/L Ur Random Urea MG/DL Urine Creatinine mg/dL Protein/Creat Ratio 2 (0-0.20) mg/mg 02/05/24 02/05/24 02/05/24 Range/Units 12:59 12:59 12:59 WBC (4.5-10.0) K/mm3 RBC (4.2-5.4) M/mm3 Hgb (12.0-15.0) g/dL Hct (37.0-47.0) % MCV (80-100) fl MCH (26-34) pg MCHC (32-36) g/dl RDW (11.5-14.5) % Plt Count (150-375) k/mm3 MPV (7.4-10.4) fl Immature Gran % (Auto) (0-0.5) % Neut % (Auto) (45.5-73.1) % Lymph % (Auto) (18.3-44.2) % [place] % (Auto) (2.6-8.5) % Eos % (Auto) (0-4.4) % Baso % (Auto) (0.2-1.2) % Lymph # (Auto) (0.9-3.2) K/mm3 [place] # (Auto) (0.1-0.6) K/mm3 Eos # (Auto) (0-0.3) K/mm3 Baso # (Auto) (0.0-0.1) K/mm3 Abs Immat Gran (auto) (0.00-0.031) K/mm3 Absolute Neuts (auto) (1.3-6.7) K/mm3 Absolute Nucleated RBC (0.0-0.012) K/mm3 Nucleated RBC % (0.0-0.2) % PT (11.1-14.7) Seconds INR APTT (22.3-36.8) Seconds Sodium Potassium Chloride Carbon Dioxide Anion Gap BUN Creatinine Estim Creat Clear Calc Estimated GFR Glucose Hemoglobin A1c (<5.7) % Lactic Acid (0.7-2.0) mmol/L Calcium Total Bilirubin 0.6 AST Cancelled 15 ALT Cancelled 6 Alkaline Phosphatase Cancelled Total Creatine Kinase (30-135) U/L Troponin I (0.000-0.034) ng/mL C-Reactive Protein (<1.0) mg/dL Total Protein Albumin Lipase (23-300) U/L TSH (Reflex) (0.465-4.68) uIU/mL Urine Color (Yellow) Urine Appearance (Clear) Urine pH (5.0-9.0) Ur Specific [place] (1.001-1.035) Urine Protein (Negative) mg/dL Urine Glucose (UA) (Negative) mg/dL Urine Ketones (Negative) mg/dL Ur Blood (Man) (Negative) Urine Nitrate (Negative) Urine Bilirubin (Negative) Urine Urobilinogen (<2.0) mg/dL Leukocyte Esterase Rfl (Negative) [place]/UL U Random Total Protein mg/dL Ur Random Sodium meq/L Ur Random Urea MG/DL Urine Creatinine mg/dL Protein/Creat Ratio 2 (0-0.20) mg/mg 02/05/24 02/05/24 02/05/24 Range/Units 12:59 12:59 12:59 WBC (4.5-10.0) K/mm3 RBC (4.2-5.4) M/mm3 Hgb (12.0-15.0) g/dL Hct (37.0-47.0) % MCV (80-100) fl MCH (26-34) pg MCHC (32-36) g/dl RDW (11.5-14.5) % Plt Count (150-375) k/mm3 MPV (7.4-10.4) fl Immature Gran % (Auto) (0-0.5) % Neut % (Auto) (45.5-73.1) % Lymph % (Auto) (18.3-44.2) % [place] % (Auto) (2.6-8.5) % Eos % (Auto) (0-4.4) % Baso % (Auto) (0.2-1.2) % Lymph # (Auto) (0.9-3.2) K/mm3 [place] # (Auto) (0.1-0.6) K/mm3 Eos # (Auto) (0-0.3) K/mm3 Baso # (Auto) (0.0-0.1) K/mm3 Abs Immat Gran (auto) (0.00-0.031) K/mm3 Absolute Neuts (auto) (1.3-6.7) K/mm3 Absolute Nucleated RBC (0.0-0.012) K/mm3 Nucleated RBC % (0.0-0.2) % PT (11.1-14.7) Seconds INR APTT (22.3-36.8) Seconds Sodium Potassium Chloride Carbon Dioxide Anion Gap BUN Creatinine Estim Creat Clear Calc Estimated GFR Glucose Hemoglobin A1c (<5.7) % Lactic Acid (0.7-2.0) mmol/L Calcium Total Bilirubin AST ALT Alkaline Phosphatase 64 Total Creatine Kinase 238 H (30-135) U/L Troponin I 0.016 (0.000-0.034) ng/mL C-Reactive Protein 18.1 H (<1.0) mg/dL Total Protein Cancelled 6.0 L Albumin Cancelled 3.1 L Lipase 57 (23-300) U/L TSH (Reflex) 2.010 (0.465-4.68) uIU/mL Urine Color (Yellow) Urine Appearance (Clear) Urine pH (5.0-9.0) Ur Specific [place] (1.001-1.035) Urine Protein (Negative) mg/dL Urine Glucose (UA) (Negative) mg/dL Urine Ketones (Negative) mg/dL Ur Blood (Man) (Negative) Urine Nitrate (Negative) Urine Bilirubin (Negative) Urine Urobilinogen (<2.0) mg/dL Leukocyte Esterase Rfl (Negative) [place]/UL U Random Total Protein mg/dL Ur Random Sodium meq/L Ur Random Urea MG/DL Urine Creatinine mg/dL Protein/Creat Ratio 2 (0-0.20) mg/mg 02/05/24 02/05/24 Range/Units 13:12 13:26 WBC (4.5-10.0) K/mm3 RBC (4.2-5.4) M/mm3 Hgb (12.0-15.0) g/dL Hct (37.0-47.0) % MCV (80-100) fl MCH (26-34) pg MCHC (32-36) g/dl RDW (11.5-14.5) % Plt Count (150-375) k/mm3 MPV (7.4-10.4) fl Immature Gran % (Auto) (0-0.5) % Neut % (Auto) (45.5-73.1) % Lymph % (Auto) (18.3-44.2) % [place] % (Auto) (2.6-8.5) % Eos % (Auto) (0-4.4) % Baso % (Auto) (0.2-1.2) % Lymph # (Auto) (0.9-3.2) K/mm3 [place] # (Auto) (0.1-0.6) K/mm3 Eos # (Auto) (0-0.3) K/mm3 Baso # (Auto) (0.0-0.1) K/mm3 Abs Immat Gran (auto) (0.00-0.031) K/mm3 Absolute Neuts (auto) (1.3-6.7) K/mm3 Absolute Nucleated RBC (0.0-0.012) K/mm3 Nucleated RBC % (0.0-0.2) % PT (11.1-14.7) Seconds INR APTT (22.3-36.8) Seconds Sodium Potassium Chloride Carbon Dioxide Anion Gap BUN Creatinine Estim Creat Clear Calc Estimated GFR Glucose Hemoglobin A1c (<5.7) % Lactic Acid 1.2 (0.7-2.0) mmol/L Calcium Total Bilirubin AST ALT Alkaline Phosphatase Total Creatine Kinase (30-135) U/L Troponin I (0.000-0.034) ng/mL C-Reactive Protein (<1.0) mg/dL Total Protein Albumin Lipase (23-300) U/L TSH (Reflex) (0.465-4.68) uIU/mL Urine Color Yellow (Yellow) Urine Appearance Clear (Clear) Urine pH 5.0 (5.0-9.0) Ur Specific [place] 1.016 (1.001-1.035) Urine Protein Negative (Negative) mg/dL Urine Glucose (UA) Negative (Negative) mg/dL Urine Ketones Trace H (Negative) mg/dL Ur Blood (Man) Negative (Negative) Urine Nitrate Negative (Negative) Urine Bilirubin Negative (Negative) Urine Urobilinogen 0.2 (<2.0) mg/dL Leukocyte Esterase Rfl Negative (Negative) PINEDA/UL U Random Total Protein 12 mg/dL Ur Random Sodium 37 meq/L Ur Random Urea 352 MG/DL Urine Creatinine 177.9 mg/dL Protein/Creat Ratio 2 0.07 (0-0.20) mg/mg Imaging Data Attestation: I personally reviewed and interpreted this imaging study as follows: My impression: Impressions Chest X-Ray 02/05/24 13:55 IMPRESSION: 1. Cardiomegaly. Abdomen/Pelvis CT 02/05/24 16:21 IMPRESSION: Mild cardiomegaly, coronary atherosclerosis Probable prior left thoracotomy Status post cholecystectomy Suggestion of decubitus ulcer and underlying inflammation capsularis and/or pulmonary edema of the medial right buttock Extensive degenerative changes of the thoracic and lumbar spine and the hips, especially the left hip ADDENDUM: 02/05/24 1804 Correction: IMPRESSIONS: Suggestion of decubitus ulcer and underlying inflammation/cellulitis and or subcutaneous edema of the medial right buttock ECG Data EKG #1: Attestation: I personally reviewed and interpreted this ECG as follows: ECG completion date: 02/05/24 ECG completion time: 12:53 Interpretation: some flattened T-waves globally, no ST segment elevations, no ectopy, overall sinus rhythm with nonspecific ST segments. Be no previous EKG for comparison directly. Critical Care Time Critical Care Time Critical Care Time: Yes Total Critical Care Time: 75 Discharge Plan Discharge Clinical Impression: Septic shock, Decubitus ulcer, Acute hypotension, Acute kidney injury, Acute dehydration, Acute hypokalemia Patient Disposition: Still a Patient Condition: Serious Time of Disposition: 18:53
[2024-02-05 13:06] LABS: Basophils Percent Auto 0.3 % (0.2-1.2); Eosinophils Absolute Auto 0.1 K/mm3 (0-0.3); Eosinophils Percent Auto 1.6 % (0-4.4); Hematocrit 31.6 % (37.0-47.0); Hemoglobin 10.5 g/dL (12.0-15.0); Immature Granulocyte Absolute 0.03 K/mm3 (0.00-0.031); Immature Granulocyte Percent A 0.5 % (0-0.5); Lymphocytes Absolute Auto 0.58 K/mm3 (0.9-3.2); Lymphocytes Percent Auto 10.1 % (18.3-44.2); Mean Corpuscular HGB Conc 33.2 g/dl (32-36); Mean Corpuscular Hemoglobin 29.3 pg (26-34); Mean Corpuscular Volume 88.3 fl (80-100); Mean Platelet Volume 10.8 fl (7.4-10.4); Monocytes Absolute Auto 0.7 K/mm3 (0.1-0.6); Monocytes Percent Auto 12.9 % (2.6-8.5); Neutrophils Absolute Auto 4.3 K/mm3 (1.3-6.7); Neutrophils Percent Auto 74.6 % (45.5-73.1); Platelet Count Result 215 k/mm3 (150-375); Red Blood Count 3.58 M/mm3 (4.2-5.4); White Blood Count 5.7 K/mm3 (4.5-10.0)
[2024-02-05 13:19] LABS: Alanine Aminotransferase 6 U/L (6-35); Albumin Level 3.1 g/dL (3.5-5.1); Alkaline Phosphatase 64 U/L (38-126); Anion Gap 12 mmol/L (4-12); Aspartate Amino Transferase 15 U/L (14-36); Bilirubin,Total 0.6 mg/dL (0.2-1.3); Blood Urea Nitrogen 51 mg/dL (7-17); Carbon Dioxide 22 mmol/L (22-30); Chloride 101 mmol/L (98-107); Glucose 93 mg/dL (65-110); Lipase 57 U/L (23-300); Sodium 135 mmol/L (137-145)
[2024-02-05 13:20] LABS: Calcium 7.8 mg/dL (8.4-10.2); Estimated CRCL calculation 18 ml/min; Estimated Glomerular Filt Rate 17
[2024-02-05 13:21] LABS: INR 1.6; Potassium 2.7 mmol/L (3.4-5.0); Prothrombin Time 19.8 Seconds (11.1-14.7)
[2024-02-05 13:27] LABS: Troponin I 0.016 ng/mL (0.000-0.034)
[2024-02-05 13:30] LABS: CRP 18.1 mg/dL (<1.0)
[2024-02-05 13:30] LABS: Add Urine Microscopic? NO; Appearance Urine Clear (Clear); Bilirubin Urine Negative (Negative); Blood Urine Negative (Negative); Color Urine Yellow (Yellow); Glucose Urine UA Negative (Negative); Ketones Urine Trace mg/dL (Negative); Leukocyte Esterase Ur Negative LEU/UL (Negative); Nitrate Urine Negative (Negative); Protein Urine Negative (Negative); Specific Grav Ur 1.016 (1.001-1.035); Urobilinogen Urine 0.2 mg/dL (<2.0)
[2024-02-05 13:43] LABS: Lactic Acid Reflex 1.2 mmol/L (0.7-2.0)
[2024-02-05] MEDS: LACTATED RINGERS 1,000 ML 999 ML IV CONT ×2 (13:54→15:09)
[2024-02-05] MEDS: LACTATED RINGERS 700 ML 999 ML IV CONT (13:54)
[2024-02-05] MEDS: POTASSIUM CHLORIDE INJ 40 MEQ in SODIUM CHLORIDE 0.9% IV 500 ML 130 MEQ IVPB (15:08)
--- NOTE | 2024-02-05 18:43 | PM.IMHP ---
H&P: HPI History of Present Illness Date/Time: 02/05/24 18:43 Chief Complaint: Hypotension, Fatigue Narrative: 74 y/o F presents here with hypotension with PMH of hyponatremia, CKD stage 3, anemia of chronic disease, asthma-COPD overlap, left breast cancer s/p chemotherapy and mastectomy in , type 2 diabetes, DVT, HLD, HTN, hypothyroidism, KURT on CPAP, PE, paroxysmal AFib, peptic ulcer disease, and rheumatoid arthritis. The patient presents here from [facility] via EMS for further evaluation of hypertension. Per EMS report to ED staff, upon their arrival the patient's blood pressure was 78/56. The placed a large-bore IV and she was given a 300 mL bolus of NS. BP improved to 96/55. Upon arrival to the emergency department, the patient's initial blood pressure was 77/44. Initial concern for sepsis given significant hypotension and history of frequent UTIs as well as a known decubitus ulcer to her buttocks. Despite 2700 mL bolus, the patient remained hypotensive/soft. Norepinephrine initiated and central line to be placed. UA is not indicative of UTI. The patient is currently endorsing fatigue, weight loss in the past month, and mild nausea with small volume emesis x1. She estimates she has lost 3-4 lbs. She denies cough, shortness of breath, abdominal pain, chest pain, increased pain to her known wound to your buttocks, dysuria, urinary frequency, fever, chills, body aches, constipation, or diarrhea. Initial VS at presentation: 97.6? F, HR 80, RR 18, 77/44, and 98% on RA. ED workup showed: No leukocytosis, hemoglobin 10.5 (previously 12.5 on 09/15/2023), INR 1.6, sodium 135, potassium 2.7, creatinine 2.7 and GFR 17 (previously 1.6 and GFR 31 on 09/15/2023), calcium 7.8 in the setting of an albumin of 3.1 (when corrected calcium 8.4), CRP 18.1, lactic 1.2, and initial troponin 0.016, and UA showed trace ketones otherwise unremarkable. CXR showed cardiomegaly. CT of the abdomen/pelvis showed mild cardiomegaly, coronary atherosclerosis, probable prior left thoracotomy, s/p cholecystectomy, suggestion of decubitus ulcer and underlying inflammation cap URS and/or subcutaneous edema of the medial right buttock, and extensive degenerative changes of the thoracic and lumbar spine and hips (especially the left hip). Review of Systems Review of Systems: All systems reviewed & are unremarkable except as noted in HPI and below PMFSH Past Medical History Medical History (Updated 02/05/24 @ 23:38 by Destini Borrego APRN) Anemia of chronic disease Anxiety Asthma-COPD overlap syndrome Ataxia Breast cancer, left breast Left breast biopsy in December 2018 showed poorly differentiated ductal carcinoma, ER/MA positive, HER2 positive, and Ki - 67 expression of 30%. Neoadjuvant chemotherapy with TCH and Perjeta. status left breast mastectomy with sentinel lymph node biopsy on 07/31/2019. Bullous pemphigoid On daily prednisone. Cardiomegaly Colon polyps COPD with emphysema Cyst Degenerative arthritis of knee, bilateral Dementia on donepezil and memantine Depression with anxiety Diastolic congestive heart failure Echocardiogram in December 2018 showed normal left ventricular size, moderate concentric left ventricular hypertrophy with impaired diastolic relaxation grade 1 and ejection fraction of 65%. 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 History of hysterectomy History of partial mastectomy of left breast Approximately 2018 History of total mastectomy of left breast (~07/2019) History of tubal ligation Hx of cholecystectomy Status post cataract extraction of both eyes with insertion of intraocular lens Family History Family History Father Acute myocardial infarction Father Cerebrovascular accident Acute myocardial infarction Tobacco abuse Mother Cerebrovascular accident Sibling No problems noted. Social History Social History Social History: The patient is never and has no children. 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 She is currently in assisted living at [facility], and has been there for a couple of months since she started chemotherapy. She also owns a home in [place], where she hopes to return. Her [id number], Sofia, is her surrogate decision maker. She wishes to be a full code. 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 Gender identity (if verbalized by the patient): Female Sexual Orientation (if Verbalized by the Patient): Straight or Heterosexual Spiritual care concerns: No Agree to blood products: Yes Meds Home Medications and Allergies Home Medications Medication Instructions Recorded Confirmed Type blood sugar diagnostic (Contour #100 ea 05/03/19 02/05/24 Rx Next Test Strips) blood sugar diagnostic (Blood #100 ea 12/25/19 02/05/24 Rx Glucose Test strips) lancets (Lancets, Super Thin) #100 ea 12/25/19 02/05/24 Rx cetirizine 10 mg tablet (Zyrtec) 10 mg PO DAILY #7 tabs 12/25/20 02/05/24 Rx ascorbate calcium (vitamin C) 500 500 mg PO DAILY 05/26/21 02/05/24 History mg tablet hydrocolloid dressing 4 X 4 #20 ea 12/15/21 02/05/24 Rx (DuoDERM CGF Adhesive Border Dressing) silicone,dressing-foam bandage 3 #10 ea 02/18/23 02/05/24 Rx X 3 albuterol sulfate 90 mcg/actuation 1 inh inhalation Q4H PRN shortness 05/10/23 02/05/24 Rx aerosol inhaler (ProAir HFA) of breath or wheezing #6.7 grams atorvastatin 10 mg tablet 10 mg PO DAILY 07/16/23 02/05/24 History blood-glucose meter (Accu-Chek #1 ea 08/03/23 02/05/24 Rx Guide Glucose Meter) indapamide 1.25 mg tablet 1.25 mg PO DAILY 08/16/23 02/05/24 History foam bandage 9.2 X 9.2 (Mepilex #5 ea 09/06/23 02/05/24 Rx Border Sacrum) empagliflozin 10 mg tablet 10 mg PO DAILY #30 tabs 10/23/23 02/05/24 Rx (Jardiance) metformin 1,000 mg tablet 1,000 mg PO BID #180 tabs 11/07/23 02/05/24 Rx potassium chloride 20 mEq 20 meq PO DAILY #30 tabs 12/16/23 02/05/24 Rx tablet,extended release sodium chloride 1,000 mg soluble 1,000 mg PO BID #60 tabs 12/16/23 02/05/24 Rx tablet apixaban 5 mg tablet (Eliquis) 5 mg PO Q12HR #60 tabs 01/03/24 02/05/24 Rx furosemide 20 mg tablet 20 mg PO BID #60 tabs 01/15/24 02/05/24 Rx VITAMIN D-3 1000UNIT TAB 1 cap PO DAILY 02/05/24 02/05/24 History anastrozole 1 mg tablet 1 mg PO DAILY 02/05/24 02/05/24 History cyanocobalamin (vitamin B-12) 1,000 mcg PO DAILY 02/05/24 02/05/24 History 1,000 mcg tablet (Vitamin B-12) donepezil 10 mg tablet 10 mg PO QPM 02/05/24 02/05/24 History ferrous sulfate 325 mg (65 mg 325 mg PO BID 02/05/24 02/05/24 History iron) tablet (FeroSul) levothyroxine 112 mcg tablet 112 mcg PO DAILY 02/05/24 02/05/24 History memantine 10 mg tablet 10 mg PO BID 02/05/24 02/05/24 History metoprolol succinate 100 mg 100 mg PO DAILY 02/05/24 02/05/24 History tablet,extended release 24 hr sertraline 100 mg tablet 200 mg PO DAILY 02/05/24 02/05/24 History spironolactone 25 mg tablet 12.5 mg PO DAILY 02/05/24 02/05/24 History Allergies Allergy/AdvReac Type Severity Reaction Status Date / Time amoxicillin Allergy Severe DIFFICULTY Verified 09/06/23 10:56 BREATHING/HIVES Iodinated Contrast Media Allergy Severe Anaphylaxis Verified 09/06/23 10:56 lisinopril Allergy Severe Swelling Verified 09/06/23 10:56 of Lip/Tongue/Throat methotrexate Allergy Severe Hives Verified 09/06/23 10:56 Penicillins Allergy Severe DIFFICULTY Verified 09/06/23 10:56 BREATHING/HIVES tetracycline Allergy Severe Hives Verified 09/06/23 10:56 metformin Allergy Unknown Jittery Verified 09/06/23 10:56 adhesive tape AdvReac Intermediate SKIN PEELS Verified 09/06/23 10:56 OFF codeine AdvReac Mild NAUSEA/VOMI Verified 09/06/23 10:56 TING furosemide AdvReac Unknown DOESN'T Verified 09/06/23 10:56 REMEMBER ioversol AdvReac Unknown DOESN'T Verified 09/06/23 10:56 REMEMBER Vital Signs Vital Signs - 24 hr 02/05/24 12:28 02/05/24 12:46 02/05/24 13:01 Temperature 97.6 F Pulse Rate 80 66 67 Respiratory Rate 18 12 18 Blood Pressure 77/44 L 89/53 L 88/46 L Pulse Oximetry 98 97 97 Oxygen Delivery Room Air 02/05/24 13:31 02/05/24 13:57 02/05/24 15:14 Temperature Pulse Rate 64 60 61 Respiratory Rate 12 15 12 Blood Pressure 81/53 L 74/46 L 90/57 L Pulse Oximetry 97 93 96 Oxygen Delivery 02/05/24 14:31 02/05/24 14:47 02/05/24 15:05 Temperature Pulse Rate 60 66 68 Respiratory Rate 14 13 16 Blood Pressure 89/67 L 70/49 L 77/41 L Pulse Oximetry 96 94 96 Oxygen Delivery 02/05/24 15:16 02/05/24 16:38 02/05/24 16:55 Temperature Pulse Rate 66 69 64 Respiratory Rate 20 16 20 Blood Pressure 92/52 L 86/55 L 99/58 L Pulse Oximetry 94 100 95 Oxygen Delivery 02/05/24 18:17 02/05/24 16:38 02/05/24 18:17 Temperature Pulse Rate 93 70 90 Respiratory Rate 17 13 16 Blood Pressure 85/57 L 86/55 L 85/57 L Pulse Oximetry 95 100 100 Oxygen Delivery 02/05/24 18:31 Temperature Pulse Rate 73 Respiratory Rate 19 Blood Pressure 81/52 L Pulse Oximetry 94 Oxygen Delivery Exam Narrative: exam fine, A/Ox4, need to check butt Const: General: comfortable and no acute distress Other: , female, obese body habitus, nontoxic appearance HENMT: Face/Nose/Sinus: Normal nares present Mouth: Yes moist mucous membranes Eyes: General: appearance normal, both eyes and all related structures Sclera: sclerae normal Pupils: Equal, round and reactive pupils present EOM: EOMs intact bilaterally Resp: Effort & Inspection: normal respiratory effort Auscultation: clear to auscultation bilaterally Cardio: Rate: regular rate Rhythm: regular rhythm Other: S1-S2 present without murmur, rub, ectopy GI: Other: Sets abdomen rounded, soft, nontender. Normoactive bowel sounds in all quadrants. Skin: General skin exam: normal color and no rashes or lesions noted Wounds: wounds noted Other: shallow wound to posterior thigh just distal to the gluteal fold is approximately 3 x 1 and 0.5 cm with yellow to sanguinous drainage, scant to moderate. Mild erythema surrounding and mild tenderness. Second wound to right buttock measuring approximately 1.5 cm by 0.5 cm with red wound base, scant sanguinous drainage. Malodorous. Neuro: Speech: normal speech Motor exam (neuro): 5/5 motor strength present throughout Sensory Exam: normal sensation Other: A&O x4 Extrem: Other: 1+ nonpitting edema to bilateral lower extremities, symmetric. Psych: Mental Status: mental status grossly normal Affect: normal affect Other: Good insight and judgment, pleasant. H&P: Results Labs Labs: Short CBC 02/05/24 Range/Units 12:59 WBC 5.7 (4.5-10.0) K/mm3 Hgb 10.5 L (12.0-15.0) g/dL Hct 31.6 L (37.0-47.0) % Plt Count 215 (150-375) k/mm3 BMP 02/05/24 02/05/24 02/05/24 12:59 12:59 12:59 Sodium Cancelled 135 L Potassium Cancelled 2.7 L* Chloride Cancelled Carbon Dioxide BUN Creatinine Glucose Calcium 02/05/24 02/05/24 02/05/24 12:59 12:59 12:59 Sodium Potassium Chloride 101 Carbon Dioxide Cancelled 22 BUN Cancelled 51 H D Creatinine Cancelled Glucose Calcium 02/05/24 02/05/24 02/05/24 12:59 12:59 12:59 Sodium Potassium Chloride Carbon Dioxide BUN Creatinine 2.70 H Glucose Cancelled 93 Calcium Cancelled 7.8 L Cardiac Enzymes 02/05/24 Range/Units 12:59 Troponin I 0.016 (0.000-0.034) ng/mL Liver Function 02/05/24 1202/05/24 Range/Units 12:59 12:59 12:59 Total Bilirubin Cancelled 0.6 AST Cancelled 15 ALT Cancelled Alkaline Phosphatase Albumin 02/05/24 02/05/24 02/05/24 Range/Units 12:59 12:59 12:59 Total Bilirubin AST ALT 6 Alkaline Phosphatase Cancelled 64 Albumin Cancelled 3.1 L Urine 02/05/24 Range/Units 13:12 Urine Color Yellow (Yellow) Urine Appearance Clear (Clear) Urine pH 5.0 (5.0-9.0) Ur Specific [place] 1.016 (1.001-1.035) Urine Protein Negative (Negative) mg/dL Urine Glucose (UA) Negative (Negative) mg/dL Assessment and Plan Assessment and plan (1) Sepsis: Qualifiers: Acute renal failure type: unspecified Sepsis acute organ dysfunction status: with acute organ dysfunction Sepsis type: sepsis due to unspecified organism Severe sepsis acute organ dysfunction type: acute renal failure Severe sepsis shock status: with septic shock Qualified Code(s): A41.9 - Sepsis, unspecified organism; R65.21 - Severe sepsis with septic shock; N17.9 - Acute kidney failure, unspecified Code(s): A41.9 - Sepsis, unspecified organism Status: Acute Assessment and Plan: - significant hypotension despite adequate fluid resuscitation (2.7 bolus), started on norepinephrine. - lactic acid: 1.2 - given significant hypertension will add procalcitonin - suspected source: spontaneous bacteremia versus decubitus ulcer as primary site - started on vancomycin, cefepime, ceftriaxone on 02/04. Will continue with vancomycin, cefepime, and Flagyl due to concern infectious site is buttock ulceration with history of diabetes. - blood cultures drawn on 02/04, follow - UA not consistent with UTI - CXR: Cardiomegaly - viral PCR and MRSA PCR added - monitor I&Os - admission to ICU with net sql developer consulted for continued use of pressor and hemodynamic monitoring (2) Decubitus ulcer: Qualifiers: Laterality: right Pressure injury location: buttock Pressure injury stage: stage 2 Qualified Code(s): L89.312 - Pressure ulcer of right buttock, stage 2 Code(s): L89.90 - Pressure ulcer of unspecified site, unspecified stage Status: Acute Assessment and Plan: - chronic decubitus ulcer, stage 2. previously bilateral, left has resolved. - CT abdomen/pelvis: Mild cardiomegaly, coronary atherosclerosis Probable prior left thoracotomy Status post cholecystectomy Suggestion of decubitus ulcer and underlying inflammation/cellulitis and or subcutaneous edema of the medial right buttock Extensive degenerative changes of the thoracic and lumbar spine and the hips, especially the left hip - wound RN consulted - wound culture (3) Acute kidney injury superimposed on CKD: Code(s): N17.9 - Acute kidney failure, unspecified; N18.9 - Chronic kidney disease, unspecified Status: Acute Assessment and Plan: - creatinine 2.7 and GFR 17, previously 1.6 and GFR 31 on 09/15/2023 - CT abdomen/pelvis showed asymmetric right renal atrophy. No renal mass lesion or urinary tract calculus or hydroureteronephrosis is detected. - add CK, urine sodium, protein/creatinine, urea - UA: trace ketones, otherwise unremarkable - bladder scan - monitor I&Os - stop muna inhibitors and diuretics as appropriate - nephrology consultation, awaiting recs (4) Diabetes type 2, controlled: Qualifiers: Diabetes mellitus complication status: without complication Diabetes mellitus shelter insulin use: without superintendent terminal use Qualified Code(s): E11.9 - Type 2 diabetes mellitus without complications Code(s): E11.9 - Type 2 diabetes mellitus without complications Status: Acute Assessment and Plan: - hypoglycemia protocol - POC blood glucose ACHS - home medication: Hold metformin and Jardiance. - correct regimen ordered - high dose TIDWM, based off BMI - A1C 6.4% on 07/2022, update (5) Essential (primary) hypertension: Code(s): I10 - Essential (primary) hypertension Status: Chronic Assessment and Plan: - chronic, currently hypotensive and requiring pressors - hold home medications, resume when appropriate - monitor (6) Obstructive sleep apnea on CPAP: Code(s): G47.33 - Obstructive sleep apnea (adult) (pediatric); Z99.89 - Dependence on other enabling machines and devices Status: Chronic Assessment and Plan: - continue home CPAP Plan Majority of home medications held, resume when appropriate. Continued albuterol p.r.n., anastrozole daily, Eliquis b.i.d., and levothyroxine daily. Diet: Diabetic GI Prophylaxis: Pantoprazole IVP DVT Prophylaxis: Continue home Eliquis Lines: Peripheral, central line to R femoral Code Status: Full code Quality VTE Prophylaxis VTE prophylaxis: pharmacologic ordered Hospitalist MIPS Advance Care Plan I have confirmed that the patient's Advanced Care Plan is present, code status is documented, or surrogate decision maker is listed in patient medical record.: Yes Medication Reconciliation I have utilized all available resources to obtain, update and review the patients current medications (includes all prescriptions, OTC, herbals, cannabis, and nutritional supplements).: Yes
[2024-02-05] MEDS: ONDANSETRON INJ 4 MG/2 ML VIAL IV PUSH (18:53)
[2024-02-05] MEDS: CEFEPIME 2 GM/NS 50 ML 2 GM/50 ML BAG IVPB (18:54)
[2024-02-05] MEDS: NOREPINEPHRINE 8 MG/D5W 250 ML 8 MG/250 ML BAG 9.38 MG IV CONT (19:02)
[2024-02-05] MEDS: PANTOPRAZOLE SODIUM IV 40 MG VIAL IV PUSH (19:52)
[2024-02-05] MEDS: VANCOMYCIN 1,250 MG/NS 250 ML 1,250 MG/250 ML BAG 166.67 MG IVPB (19:53)
[2024-02-05 20:22] LABS: Glucose Point of Care 89 mg/dl (65-105)
[2024-02-05 21:01] LABS: Creatine Kinase 238 U/L (30-135)
[2024-02-05 21:03] LABS: Influenza A QL RT-PCR Negative (Negative); Influenza B QL RT-PCR Negative (Negative); RSV RNA, RT-PCR Negative (Negative); SARS-CoV-2 RNA PCR Negative (Negative)
[2024-02-05 21:05] LABS: Hemoglobin A1C 6.5 % (<5.7)
[2024-02-05 21:24] LABS: Urea Random Urine 352 MG/DL
[2024-02-05 21:25] LABS: Sodium Urine Random 37 meq/L
--- NOTE | 2024-02-05 21:31 | PC.NURSE ---
spoke to Jeovanny at this time at [facility] to let them know the pt would be admitted to the hospital
[2024-02-05 21:38] LABS: MRSA (PCR) NOT DETECTED (NOT DETECTE)
[2024-02-05 21:39] LABS: Procalcitonin 0.2 ng/mL
[2024-02-05 21:54] LABS: Creatinine Urine 177.9 mg/dL; Total Protein Urine Random 12 mg/dL; Ur Ttl Prot Creatinine Ratio 0.07 mg/mg (0-0.20)
[2024-02-05] MEDS: CENTRAL LINE FLUSH 10 ML IV PUSH (22:13)
--- NOTE | 2024-02-05 22:18 | PC.NURSE ---
Admission complete; Home medication list completed via transfer sheet from [facility]. Report called to ICU, per Janis RN, Ginette RN has no questions r/t admission.
--- NOTE | 2024-02-05 23:11 | ADMGEN ---
This patient, Hoa Balbuena, was admitted to Intensive Care Unit-2. Patient/family oriented to hospital policies and general routines including ID bracelet, bed and alarms, visiting hours, pain management, procedures, bathroom and other care routines, personal items, smoking policy, room service/diet, and visiting hours. Information on how to activate the Rapid Response Team has been discussed. Patient/Family are encouraged to report perceived risks to care and to ask questions if they do not understand what they are told or what they should do.
[2024-02-06] VITALS (30 sets, daily range): BP systolic 65–119; BP diastolic 25–77; PULSE 48–144; RESP 14–25; TEMP 36.5–37.1; O2SAT 92–100; BMI 33.7
[2024-02-06] MEDS: metroNIDAZOLE 500 MG/ISO 100ML 500 MG/100 ML BAG 100 MG IVPB ×4 (00:35→23:30)
[2024-02-06 01:04] LABS: Anion Gap 11 mmol/L (4-12); Blood Urea Nitrogen 41 mg/dL (7-17); Calcium 7.8 mg/dL (8.4-10.2); Carbon Dioxide 20 mmol/L (22-30); Chloride 103 mmol/L (98-107); Estimated CRCL calculation 25 ml/min; Estimated Glomerular Filt Rate 24; Glucose 90 mg/dL (65-110); Potassium 2.7 mmol/L (3.4-5.0); Sodium 134 mmol/L (137-145)
[2024-02-06] MEDS: KCL 40 MEQ/WATER 100 ML 100 ML 25 ML IVPB ×2 (02:07→18:39)
[2024-02-06] MEDS: MAGNESIUM SULF 4 GM/WATER100ML 4 GM/100 ML BAG IVPB (03:11)
[2024-02-06] MEDS: LEVOTHYROXINE SODIUM 112 MCG TABLET PO (05:58)
[2024-02-06] MEDS: CENTRAL LINE FLUSH 10 ML IV PUSH ×3 (05:59→22:02)
[2024-02-06 06:42] LABS: Basophils Percent Auto 0.3 % (0.2-1.2); Eosinophils Absolute Auto 0.1 K/mm3 (0-0.3); Eosinophils Percent Auto 1.9 % (0-4.4); Hematocrit 33.5 % (37.0-47.0); Hemoglobin 11.1 g/dL (12.0-15.0); Immature Granulocyte Absolute 0.05 K/mm3 (0.00-0.031); Immature Granulocyte Percent A 0.8 % (0-0.5); Mean Corpuscular HGB Conc 33.1 g/dl (32-36); Mean Corpuscular Hemoglobin 29.4 pg (26-34); Mean Corpuscular Volume 88.6 fl (80-100); Mean Platelet Volume 10.2 fl (7.4-10.4); Monocytes Absolute Auto 0.7 K/mm3 (0.1-0.6); Monocytes Percent Auto 11.2 % (2.6-8.5); Neutrophils Absolute Auto 4.5 K/mm3 (1.3-6.7); Neutrophils Percent Auto 72.8 % (45.5-73.1); Platelet Count Result 242 k/mm3 (150-375); Red Blood Count 3.78 M/mm3 (4.2-5.4); Red Cell Distribution Width 14.2 % (11.5-14.5); White Blood Count 6.2 K/mm3 (4.5-10.0)
[2024-02-06 06:59] LABS: Alanine Aminotransferase 6 U/L (6-35); Albumin Level 2.9 g/dL (3.5-5.1); Alkaline Phosphatase 69 U/L (38-126); Anion Gap 14 mmol/L (4-12); Aspartate Amino Transferase 17 U/L (14-36); Bilirubin,Total 0.5 mg/dL (0.2-1.3); Blood Urea Nitrogen 37 mg/dL (7-17); Calcium 7.9 mg/dL (8.4-10.2); Carbon Dioxide 19 mmol/L (22-30); Chloride 104 mmol/L (98-107); Estimated CRCL calculation 27 ml/min; Estimated Glomerular Filt Rate 26; Glucose 102 mg/dL (65-110); Magnesium 2.6 mg/dL (1.6-2.3); Phosphorus 2.5 mg/dL (2.5-4.5); Potassium 3.2 mmol/L (3.4-5.0); Sodium 137 mmol/L (137-145)
[2024-02-06] MEDS: ANASTROZOLE (*CHEMO) 1 MG TABLET PO (08:17)
[2024-02-06] MEDS: APIXABAN 5 MG TABLET PO ×2 (08:17→22:02)
[2024-02-06] MEDS: PANTOPRAZOLE SODIUM IV 40 MG VIAL IV PUSH (08:17)
[2024-02-06 08:30] LABS: Glucose Point of Care 122 mg/dl (65-105)
[2024-02-06] MEDS: MIDODRINE HCL 10 MG TABLET PO ×2 (08:30→12:06)
[2024-02-06] MEDS: SODIUM BICARBONATE TAB 650 MG TABLET PO (08:30)
[2024-02-06] MEDS: POTASSIUM BICARBONATE 25 MEQ TABEF 50 MEQ PO ×2 (08:30→12:05)
--- NOTE | 2024-02-06 09:24 | P.CONIN_ITS ---
Assessment and Plan Assessment and plan (1) Shock: Code(s): R57.9 - Shock, unspecified Status: Acute Assessment and Plan: Patient presented with hypotension. Although she does have decubitus ulcer her WBC was normal and procalcitonin level is on the lower side She does have systolic dysfunction hence it appears to be a multifactorial secondary to sepsis, hypovolemia, and cardiogenic Patient has CV close to 4 L of fluid hence will hold further IV fluids Continue Levophed Replace calcium potassium and treat acidosis Check TSH cortisol Add midodrine Check NICOM for further fluid responsiveness (2) Sepsis: Qualifiers: Acute renal failure type: unspecified Sepsis acute organ dysfunction status: with acute organ dysfunction Sepsis type: sepsis due to unspecified organism Severe sepsis acute organ dysfunction type: acute renal failure Severe sepsis shock status: with septic shock Qualified Code(s): A41.9 - Sepsis, unspecified organism; R65.21 - Severe sepsis with septic shock; N17.9 - Acute kidney failure, unspecified Code(s): A41.9 - Sepsis, unspecified organism Status: Acute Assessment and Plan: Normal WBC and lactic acid level Procalcitonin 0.2 UA negative for suggestion of UTI She does have a decubitus ulcer Continue vancomycin cefepime and Flagyl Local wound care (3) Decubitus ulcer: Qualifiers: Laterality: right Pressure injury location: buttock Pressure injury stage: stage 2 Qualified Code(s): L89.312 - Pressure ulcer of right buttock, s tage 2 Code(s): L89.90 - Pressure ulcer of unspecified site, unspecified stage Status: Acute Assessment and Plan: Evaluated by wound care nurses. Continue local wound care. Antibiotics as above (4) Diabetes type 2, controlled: Qualifiers: Diabetes mellitus complication status: without complication Diabetes mellitus termite control technician insulin use: without retirement use Qualified Code(s): E11.9 - Type 2 diabetes mellitus without complications Code(s): E11.9 - Type 2 diabetes mellitus without complications Status: Acute Assessment and Plan: Consistent carbohydrate diet Sliding scale insulin (5) Electrolyte abnormality: Code(s): E87.8 - Other disorders of electrolyte and fluid balance, not elsewhere classified Status: Acute Assessment and Plan: Potassium replacement ordered (6) Metabolic acidosis: Code(s): E87.20 - Acidosis, unspecified Status: Acute Assessment and Plan: Secondary to CRICKET. Due to hypotension and shock will give some bicarb (7) Acute kidney injury: Code(s): N17.9 - Acute kidney failure, unspecified Status: Acute Assessment and Plan: Presented with acute kidney injury and creatinine of 2.7 CK level mildly elevated at 238 Likely secondary to hypotension and hypovolemia Creatinine is improving with IV fluids Will hold further IV fluids as patient has history of congestive heart failure Continue low-fat titration to maintain mean arterial pressure Monitor see urine output electrolytes and creatinine CT scan of the abdomen pelvis does not show any stone hydronephrosis Plan DVT prophylaxis -Eliquis Stress ulcer prophylaxis - Nutrition -diabetic diet ordered Code Status -patient wishes to be Full Code Total Critical Care Time -35 minutes Due to a high probability of clinically significant, life threatening deterioration, the patient required my highest level of preparedness to intervene emergently and I personally spent this critical care time directly and personally managing the patient. This critical care time included obtaining a history; examining the patient; pulse oximetry; ordering and review of studies; arranging urgent treatment with development of a management plan; evaluation of patient's response to treatment; frequent reassessment; and discussions with other providers. It was exclusive of separately billable procedures and treating other patients and teaching time. Please see Assessment and Plan section and the rest of the note for further information on patient assessment and treatment Medical Claims Representative Consult Note Consult date: 02/06/24 Reason for consult: Hypertension HPI: Hoa Balbuena is a 74 year old female Review of Systems Review of Systems: All systems reviewed & are unremarkable except as noted in HPI and below PMFSH Past Medical History Medical History (Updated 02/06/24 @ 09:35 by Eduard Ramirez MD) Anemia of chronic disease Anxiety Asthma-COPD overlap syndrome Ataxia Breast cancer, left breast Left breast biopsy in December 2018 showed poorly differentiated ductal carcinoma, ER/TN positive, HER2 positive, and Ki - 67 expression of 30%. Neoadjuvant chemotherapy with TCH and Perjeta. status left breast mastectomy with sentinel lymph node biopsy on 07/31/2019. Bullous pemphigoid On daily prednisone. Cardiomegaly Colon polyps COPD with emphysema Cyst Degenerative arthritis of knee, bilateral Dementia on donepezil and memantine Depression with anxiety Diastolic congestive heart failure Echocardiogram in December 2018 showed normal left ventricular size, moderate concentric left ventricular hypertrophy with impaired diastolic relaxation grade 1 and ejection fraction of 65%. 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 History of hysterectomy History of partial mastectomy of left breast Approximately 2017 History of total mastectomy of left breast (~07/2019) History of tubal ligation Hx of cholecystectomy Status post cataract extraction of both eyes with insertion of intraocular lens Family History Family History Father Acute myocardial infarction Father Cerebrovascular accident Acute myocardial infarction Tobacco abuse Mother Cerebrovascular accident Sibling No problems noted. Social History Social History Social History: The patient is never and has no children. 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 She is currently in assisted living at [facility], and has been there for a couple of months since she started chemotherapy. She also owns a home in [place], where she hopes to return. Her [id number], Sofia, is her surrogate decision maker. She wishes to be a full code. 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 Gender identity (if verbalized by the patient): Female Sexual Orientation (if Verbalized by the Patient): Straight or Heterosexual Spiritual care concerns: No Agree to blood products: Yes Meds Home Medications and Allergies Home Medications Medication Instructions Recorded Confirmed Type blood sugar diagnostic (Contour #100 ea 05/03/19 02/05/24 Rx Next Test Strips) blood sugar diagnostic (Blood #100 ea 12/25/19 02/05/24 Rx Glucose Test strips) lancets (Lancets, Super Thin) #100 ea 12/25/19 02/05/24 Rx cetirizine 10 mg tablet (Zyrtec) 10 mg PO DAILY #7 tabs 12/25/20 02/05/24 Rx ascorbate calcium (vitamin C) 500 500 mg PO DAILY 05/26/21 02/05/24 History mg tablet hydrocolloid dressing 4 X 4 #20 ea 12/15/21 02/05/24 Rx (DuoDERM CGF Adhesive Border Dressing) silicone,dressing-foam bandage 3 #10 ea 02/18/23 02/05/24 Rx X 3 albuterol sulfate 90 mcg/actuation 1 inh inhalation Q4H PRN shortness 05/10/23 02/05/24 Rx aerosol inhaler (ProAir HFA) of breath or wheezing #6.7 grams atorvastatin 10 mg tablet 10 mg PO DAILY 07/16/23 02/05/24 History blood-glucose meter (Accu-Chek #1 ea 08/03/23 02/05/24 Rx Guide Glucose Meter) indapamide 1.25 mg tablet 1.25 mg PO DAILY 08/16/23 02/05/24 History foam bandage 9.2 X 9.2 (Mepilex #5 ea 09/06/23 02/05/24 Rx Border Sacrum) empagliflozin 10 mg tablet 10 mg PO DAILY #30 tabs 10/23/23 02/05/24 Rx (Jardiance) metformin 1,000 mg tablet 1,000 mg PO BID #180 tabs 11/07/23 02/05/24 Rx potassium chloride 20 mEq 20 meq PO DAILY #30 tabs 12/16/23 02/05/24 Rx tablet,extended release sodium chloride 1,000 mg soluble 1,000 mg PO BID #60 tabs 12/16/23 02/05/24 Rx tablet apixaban 5 mg tablet (Eliquis) 5 mg PO Q12HR #60 tabs 01/03/24 02/05/24 Rx furosemide 20 mg tablet 20 mg PO BID #60 tabs 01/15/24 02/05/24 Rx VITAMIN D-3 1000UNIT TAB 1 cap PO DAILY 02/05/24 02/05/24 History anastrozole 1 mg tablet 1 mg PO DAILY 02/05/24 02/05/24 History cyanocobalamin (vitamin B-12) 1,000 mcg PO DAILY 02/05/24 02/05/24 History 1,000 mcg tablet (Vitamin B-12) donepezil 10 mg tablet 10 mg PO QPM 02/05/24 02/05/24 History ferrous sulfate 325 mg (65 mg 325 mg PO BID 02/05/24 02/05/24 History iron) tablet (FeroSul) levothyroxine 112 mcg tablet 112 mcg PO DAILY 02/05/24 02/05/24 History memantine 10 mg tablet 10 mg PO BID 02/05/24 02/05/24 History metoprolol succinate 100 mg 100 mg PO DAILY 02/05/24 02/05/24 History tablet,extended release 24 hr sertraline 100 mg tablet 200 mg PO DAILY 02/05/24 02/05/24 History spironolactone 25 mg tablet 12.5 mg PO DAILY 02/05/24 02/05/24 History Allergies Allergy/AdvReac Type Severity Reaction Status Date / Time amoxicillin Allergy Severe DIFFICULTY Verified 09/06/23 10:56 BREATHING/HIVES Iodinated Contrast Media Allergy Severe Anaphylaxis Verified 09/06/23 10:56 lisinopril Allergy Severe Swelling Verified 09/06/23 10:56 of Lip/Tongue/Throat methotrexate Allergy Severe Hives Verified 09/06/23 10:56 Penicillins Allergy Severe DIFFICULTY Verified 09/06/23 10:56 BREATHING/HIVES tetracycline Allergy Severe Hives Verified 09/06/23 10:56 metformin Allergy Unknown Jittery Verified 09/06/23 10:56 adhesive tape AdvReac Intermediate SKIN PEELS Verified 09/06/23 10:56 OFF codeine AdvReac Mild NAUSEA/VOMI Verified 09/06/23 10:56 TING furosemide AdvReac Unknown DOESN'T Verified 09/06/23 10:56 REMEMBER ioversol AdvReac Unknown DOESN'T Verified 09/06/23 10:56 REMEMBER Vital Signs Vital Signs - 24 hr 02/05/24 12:28 02/05/24 12:46 02/05/24 13:01 Temperature 36.4 C Pulse Rate 80 66 67 Respiratory Rate 18 12 18 Blood Pressure 77/44 L 89/53 L 88/46 L Pulse Oximetry 98 97 97 Oxygen Delivery Room Air 02/05/24 13:31 02/05/24 13:57 02/05/24 15:14 Temperature Pulse Rate 64 60 61 Respiratory Rate 12 15 12 Blood Pressure 81/53 L 74/46 L 90/57 L Pulse Oximetry 97 93 96 Oxygen Delivery 02/05/24 14:31 02/05/24 14:47 02/05/24 15:05 Temperature Pulse Rate 60 66 68 Respiratory Rate 14 13 16 Blood Pressure 89/67 L 70/49 L 77/41 L Pulse Oximetry 96 94 96 Oxygen Delivery 02/05/24 15:16 02/05/24 16:38 02/05/24 16:55 Temperature Pulse Rate 66 69 64 Respiratory Rate 20 16 20 Blood Pressure 92/52 L 86/55 L 99/58 L Pulse Oximetry 94 100 95 Oxygen Delivery 02/05/24 18:17 02/05/24 16:38 02/05/24 18:17 Temperature Pulse Rate 93 70 90 Respiratory Rate 17 13 16 Blood Pressure 85/57 L 86/55 L 85/57 L Pulse Oximetry 95 100 100 Oxygen Delivery 02/05/24 18:31 02/05/24 18:46 02/05/24 19:02 Temperature Pulse Rate 73 61 69 Respiratory Rate 19 12 Blood Pressure 81/52 L 90/54 L 95/45 L Pulse Oximetry 94 100 Oxygen Delivery 02/05/24 19:05 02/05/24 19:23 02/05/24 19:33 Temperature Pulse Rate 67 70 73 Respiratory Rate 13 21 H 15 Blood Pressure 95/45 L 99/76 L 104/46 L Pulse Oximetry 95 99 96 Oxygen Delivery 02/05/24 19:56 02/05/24 19:33 02/05/24 20:01 Temperature Pulse Rate 67 73 65 Respiratory Rate 17 19 14 Blood Pressure 96/52 L 104/46 L 101/52 L Pulse Oximetry 99 97 93 Oxygen Delivery 02/05/24 20:16 02/05/24 20:31 02/05/24 21:00 Temperature Pulse Rate 65 61 64 Respiratory Rate 19 20 16 Blood Pressure 98/55 L 103/56 L 102/48 L Pulse Oximetry 100 90 100 Oxygen Delivery 02/05/24 21:01 02/05/24 20:47 02/05/24 21:01 Temperature Pulse Rate 63 61 64 Respiratory Rate 16 17 17 Blood Pressure 100/58 L 102/48 L 100/58 L Pulse Oximetry 100 97 99 Oxygen Delivery 02/05/24 21:47 02/05/24 22:01 02/05/24 22:17 Temperature Pulse Rate 67 68 72 Respiratory Rate 13 20 17 Blood Pressure 99/60 L 102/57 L 101/58 L Pulse Oximetry 100 100 98 Oxygen Delivery 02/05/24 22:34 02/05/24 23:21 02/05/24 23:52 Temperature 36.6 C Pulse Rate 64 63 66 Respiratory Rate 14 14 Blood Pressure 105/58 L 107/59 L 108/57 L Pulse Oximetry 92 100 Oxygen Delivery 02/06/24 00:00 02/06/24 00:00 02/06/24 00:00 Temperature Pulse Rate 66 61 Respiratory Rate 15 Blood Pressure 99/53 L Pulse Oximetry 99 Oxygen Delivery Room Air 02/06/24 01:00 02/06/24 02:00 02/06/24 02:00 Temperature Pulse Rate 63 55 L 55 L Respiratory Rate 18 Blood Pressure 95/48 L Pulse Oximetry 100 92 Oxygen Delivery Autopap 02/06/24 02:00 02/06/24 02:17 02/06/24 03:36 Temperature Pulse Rate 55 L 55 L 52 L Respiratory Rate Blood Pressure 95/48 L 85/61 L 85/49 L Pulse Oximetry Oxygen Delivery 02/06/24 03:43 02/06/24 03:45 02/06/24 04:00 Temperature Pulse Rate 71 48 L 50 L Respiratory Rate Blood Pressure 103/50 L 119/57 L Pulse Oximetry 93 Oxygen Delivery Autopap 02/06/24 05:01 02/06/24 04:00 02/06/24 04:00 Temperature 37.1 C Pulse Rate 58 L 50 L Respiratory Rate 19 Blood Pressure 109/65 119/57 L Pulse Oximetry 95 Oxygen Delivery Autopap 02/06/24 04:00 02/06/24 06:00 02/06/24 06:00 Temperature Pulse Rate 50 L 57 L 57 L Respiratory Rate 19 Blood Pressure 105/54 L Pulse Oximetry 100 Oxygen Delivery 02/06/24 06:10 02/06/24 08:00 02/06/24 08:30 Temperature 36.5 C Pulse Rate 57 L 58 L Respiratory Rate Blood Pressure 105/54 L 87/41 L Pulse Oximetry Oxygen Delivery Exam Narrative: General: Pt is old frail female who is alert awake and in NAD, kyphosis Lungs/Chest: Trachea central Clear BS B/L, No crackles or wheezing. Cardiac: RRR. Normal S1 S2. No murmurs Circulation: Feet are warm Abdomen: Normal bowel sounds.. Soft. NT. ND. Extremities: No clubbing, cyanosis, mild pitting edema : Aleman in place Neurologic: Follows commands. Moves all 4 extremities PERRL AO x3 Skin: No Rash patient has decubitus ulcer which was just examined and redressed by wound care nurses patient was sitting up eating her breakfast hence I did not remove the dressing and reexamine her. Pictures in the chart were reviewed Results Labs 02/06/24 06:37 02/06/24 06:37 Labs: Impressions Chest X-Ray 02/05/24 13:55 IMPRESSION: 1. Cardiomegaly. Abdomen/Pelvis CT 02/05/24 16:21 IMPRESSION: Mild cardiomegaly, coronary atherosclerosis Probable prior left thoracotomy Status post cholecystectomy Suggestion of decubitus ulcer and underlying inflammation capsularis and/or pulmonary edema of the medial right buttock Extensive degenerative changes of the thoracic and lumbar spine and the hips, especially the left hip ADDENDUM: 02/05/24 1804 Correction: IMPRESSIONS: Suggestion of decubitus ulcer and underlying inflammation/cellulitis and or subcutaneous edema of the medial right buttock Short CBC 02/05/24 02/06/24 Range/Units 12:59 06:37 WBC 5.7 6.2 (4.5-10.0) K/mm3 Hgb 10.5 L 11.1 L (12.0-15.0) g/dL Hct 31.6 L 33.5 L (37.0-47.0) % Plt Count 215 242 (150-375) k/mm3 BMP 02/05/24 02/05/24 02/05/24 12:59 12:59 12:59 Sodium Cancelled 135 L Potassium Cancelled 2.7 L* Chloride Cancelled Carbon Dioxide BUN Creatinine Glucose Calcium 02/05/24 02/05/24 02/05/24 12:59 12:59 12:59 Sodium Potassium Chloride 101 Carbon Dioxide Cancelled 22 BUN Cancelled 51 H D Creatinine Cancelled Glucose Calcium 02/05/24 02/05/24 02/05/24 12:59 12:59 12:59 Sodium Potassium Chloride Carbon Dioxide BUN Creatinine 2.70 H Glucose Cancelled 93 Calcium Cancelled 7.8 L 02/06/24 02/06/24 00:38 06:37 Sodium 134 L 137 Potassium 2.7 L* 3.2 L Chloride 103 104 Carbon Dioxide 20 L 19 L BUN 41 H D 37 H Creatinine 2.00 H 1.90 H Glucose 90 102 Calcium 7.8 L 7.9 L Cardiac Enzymes 02/05/24 Range/Units 12:59 Total Creatine Kinase 238 H (30-135) U/L Troponin I 0.016 (0.000-0.034) ng/mL Liver Function 02/05/24 02/05/24 02/05/24 Range/Units 12:59 12:59 12:59 Total Bilirubin Cancelled 0.6 AST Cancelled 15 ALT Cancelled Alkaline Phosphatase Albumin 02/05/24 02/05/24 02/05/24 Range/Units 12:59 12:59 12:59 Total Bilirubin AST ALT 6 Alkaline Phosphatase Cancelled 64 Albumin Cancelled 3.1 L 02/06/24 Range/Units 06:37 Total Bilirubin 0.5 AST 17 ALT 6 Alkaline Phosphatase 69 Albumin 2.9 L Urine 02/05/24 Range/Units 13:12 Urine Color Yellow (Yellow) Urine Appearance Clear (Clear) Urine pH 5.0 (5.0-9.0) Ur Specific [place] 1.016 (1.001-1.035) Urine Protein Negative (Negative) mg/dL Urine Glucose (UA) Negative (Negative) mg/dL Quality VTE Prophylaxis VTE prophylaxis: mechanical ordered and pharmacologic ordered Hospitalist MIPS Advance Care Plan I have confirmed that the patient's Advanced Care Plan is present, code status is documented, or surrogate decision maker is listed in patient medical record.: Yes Medication Reconciliation I have utilized all available resources to obtain, update and review the patients current medications (includes all prescriptions, OTC, herbals, cannabi s, and nutritional supplements).: Yes
[2024-02-06 12:05] LABS: Glucose Point of Care 134 mg/dl (65-105)
[2024-02-06] MEDS: ALBUMIN HUMAN 25% 25 GM/100 ML 100 ML IVPB ×2 (12:05→18:40)
--- NOTE | 2024-02-06 12:19 | ECG_ITS ---
Test Date: 2024-02-06 12:29:00 Measurements Intervals [place] Rate: 59 P: 24 UT: 163 QRS: -11 QRSD: 75 T: 9 QT: 515 QTc: 512 Interpretive Statements SINUS BRADYCARDIA LOW QRS VOLTAGE IN PRECORDIAL LEADS [QRS DEFLECTION < 1.0 mV IN CHEST LEADS] INFERIOR MYOCARDIAL INFARCTION [40+ ms Q WAVE AND/OR ST/T ABNORMALITY IN II/aVF], PROBABLY OLD Compared to ECG 02/05/2024 12:53:41 Sinus rhythm no longer present T-wave abnormality no longer present Possible ischemia no longer present Myocardial infarct finding still present Electronically Signed On 02-06-2024 12:59:59 VISUAL COORDINATOR by Adal Aranda M.D.
[2024-02-06] MEDS: NOREPINEPHRINE 8 MG/D5W 250 ML 8 MG/250 ML BAG 13.13 MG IV CONT (14:00)
--- NOTE | 2024-02-06 16:53 | ECG_ITS ---
Test Date: 2024-02-06 16:56:11 Measurements Intervals [place] Rate: 196 P: 0 [place]: 0 QRS: -27 QRSD: 93 T: 216 QT: 235 QTc: 424 Interpretive Statements SUPRAVENTRICULAR TACHYCARDIA LOW QRS VOLTAGE IN PRECORDIAL LEADS [QRS DEFLECTION < 1.0 mV IN CHEST LEADS] INFERIOR MYOCARDIAL INFARCTION [40+ ms Q WAVE AND/OR ST/T ABNORMALITY IN II/aVF], OF INDETERMINATE AGE [-0.1+ mV T WAVE IN I/aVL/V5/V6] Compared to ECG 02/06/2024 12:29:00 SUPRAVENTRICULAR TACHYCARDIA NOW PRESENT Electronically Signed On 02-07-2024 14:48:11 LANDING SIGNAL OFFICER by Danuta Caceres M.D.
--- NOTE | 2024-02-06 16:59 | PDCODEBLUE ---
Code [place] Note Code Blue Note Time Arrived at Code [place]: 16:43 Initial Rhythm on Arrival: ventricular fibrillation Airway Management: Initiated bagging pt on arrival Result of Code Blue: Pt regained consciousness Cardiac Rhythm Post Code: supraventricular tachycardia followed by atrial fibrillation with rapid ventricular response Code [place] Summary: internal affairs commander alarmed and it looks like she was in polymorphic ventricular tachycardia according to the nurse. Katherine collado was called overhead. Chest compressions were started immediately and ACLS protocol was followed. She received epinephrine 1 mg and at 2 minutes a pulse check she was noted to be in ventricular fibrillation for which she was defibrillated with 200 joules. CPR was resumed and after about a minute and a half the patient regained consciousness and pushed nursing staff away from her. At that time she was in rapid atrial fibrillation and was bolused amiodarone. Her heart rate improved and to in a couple of minutes she went into a brief run of SVT in the 190s before converting to normal sinus rhythm. She was alert, oriented, and following commands and complained only of nausea following the above events. Blood pressures on oxygen requirements were stable. Abdomen was nontender with positive bowel sounds. Peripheral pulses palpable. Certified Drug Counselor notified, salvage cutter consulted. Critical Care Time Critical Care Time: Yes Total Critical Care Time: 35 Attestation: Due to a high probability of clinically significant, life threatening deterioration, the patient required my highest level of preparedness to intervene emergently and I personally spent this critical care time directly and personally managing the patient. This critical care time included obtaining a history; examining the patient; pulse oximetry; ordering and review of studies; arranging urgent treatment with development of a management plan; evaluation of patient's response to treatment; frequent reassessment; and discussions with other providers. It was exclusive of separately billable procedures and treating other patients and teaching time. Please see Assessment and Plan section and the rest of the note for further information on patient assessment and treatment.
[2024-02-06 17:12] LABS: Basophils Percent Auto 0.3 % (0.2-1.2); Eosinophils Absolute Auto 0.1 K/mm3 (0-0.3); Eosinophils Percent Auto 1.3 % (0-4.4); Hematocrit 34.9 % (37.0-47.0); Hemoglobin 11.2 g/dL (12.0-15.0); Immature Granulocyte Absolute 0.07 K/mm3 (0.00-0.031); Immature Granulocyte Percent A 0.9 % (0-0.5); Lymphocytes Absolute Auto 2.16 K/mm3 (0.9-3.2); Lymphocytes Percent Auto 28.5 % (18.3-44.2); Mean Corpuscular HGB Conc 32.1 g/dl (32-36); Mean Corpuscular Volume 90.4 fl (80-100); Mean Platelet Volume 10.5 fl (7.4-10.4); Monocytes Absolute Auto 0.8 K/mm3 (0.1-0.6); Monocytes Percent Auto 9.9 % (2.6-8.5); Neutrophils Absolute Auto 4.5 K/mm3 (1.3-6.7); Neutrophils Percent Auto 59.1 % (45.5-73.1); Platelet Count Result 284 k/mm3 (150-375); Red Blood Count 3.86 M/mm3 (4.2-5.4); Red Cell Distribution Width 14.3 % (11.5-14.5); White Blood Count 7.6 K/mm3 (4.5-10.0)
[2024-02-06 17:21] LABS: Alveolar/Arterial O2 Gradient 65.5 mmHg; Base Excess ABG -9.1 mEq/l (+/-2.0); Carboxyhemoglobin 0.3 % THb (0-2.0); Fractional Inspired Oxygen 28 %; HCO3 ABG 14.6 mEq/l (22.0-26.0); Methemoglobin ABG 0.1 %THb (0-1.5); Oxygen Content ABG 16.5 %vol (16.0-22.0); Oxygen Saturation ABG 97.7 % (95.0-100.0); Oxyhemoglobin 97.1 % THb (90.0-100.0); PCO2 ABG 25.9 mmHg (35.0-45.0); PO2 ABG 103.6 mmHg (80.0-100.0); Reduced Hemoglobin 2.5 %THb (0-5.0); pH ABG 7.369 (7.350-7.450)
[2024-02-06 17:22] LABS: Device NASAL CANNULA; Site Drawn RIGHT BRACHIAL
[2024-02-06 17:24] LABS: Alanine Aminotransferase 50 U/L (6-35); Albumin Level 3.4 g/dL (3.5-5.1); Alkaline Phosphatase 70 U/L (38-126); Anion Gap 19 mmol/L (4-12); Aspartate Amino Transferase 136 U/L (14-36); Bilirubin,Total 0.5 mg/dL (0.2-1.3); Blood Urea Nitrogen 30 mg/dL (7-17); Calcium 8.1 mg/dL (8.4-10.2); Carbon Dioxide 16 mmol/L (22-30); Chloride 101 mmol/L (98-107); Estimated CRCL calculation 30 ml/min; Estimated Glomerular Filt Rate 29; Glucose 169 mg/dL (65-110); Magnesium 2.2 mg/dL (1.6-2.3); Phosphorus 2.6 mg/dL (2.5-4.5); Potassium 3.3 mmol/L (3.4-5.0); Sodium 136 mmol/L (137-145)
[2024-02-06 17:25] LABS: Anion Gap 18 mmol/L (4-12); Blood Urea Nitrogen 30 mg/dL (7-17); Calcium 8.2 mg/dL (8.4-10.2); Carbon Dioxide 16 mmol/L (22-30); Chloride 102 mmol/L (98-107); Estimated CRCL calculation 30 ml/min; Estimated Glomerular Filt Rate 29; Glucose 168 mg/dL (65-110); Potassium 3.4 mmol/L (3.4-5.0); Sodium 136 mmol/L (137-145)
[2024-02-06 17:26] LABS: Lactic Acid Reflex 4.6 mmol/L (0.7-2.0)
--- NOTE | 2024-02-06 17:34 | ECG_ITS ---
Test Date: 2024-02-06 17:38:21 Measurements Intervals [place] Rate: 86 P: -23 HI: 107 QRS: -15 QRSD: 73 T: 122 QT: 342 QTc: 411 Interpretive Statements ATRIAL FIBRILLATION LOW QRS VOLTAGE IN PRECORDIAL LEADS [QRS DEFLECTION < 1.0 mV IN CHEST LEADS] NONSPECIFIC ST & T-WAVE ABNORMALITY Compared to ECG 02/06/2024 16:56:11 ATRIAL FIBRILLATION NOW PRESENT Electronically Signed On 02-07-2024 14:49:56 POULTRY HUSBANDRY WORKER by Danuta Caceres M.D.
[2024-02-06 17:40] LABS: Troponin I 0.254 ng/mL (0.000-0.034)
[2024-02-06] MEDS: AMIODARONE 360 MG/D5W 200 ML 360 MG/200 ML BAG 33.33 MG IV CONT (18:38)
[2024-02-06] MEDS: CEFEPIME 1 GM/NS 50 ML 1 GM/50 ML BAG IVPB (18:39)
[2024-02-06] MEDS: MORPHINE SULFATE (*CRX) 2 MG/ML INJ IV PUSH (19:15)
[2024-02-06 19:20] LABS: Glucose Point of Care 190 mg/dl (65-105)
[2024-02-06 20:08] LABS: Reflex Lactic Acid Yes or No Add Lactic
[2024-02-06 22:23] LABS: Lactic Acid 1.7 mmol/L (0.7-2.0)
[2024-02-06 22:45] LABS: Troponin I 0.426 ng/mL (0.000-0.034)
[2024-02-07] VITALS (20 sets, daily range): BP systolic 83–108; BP diastolic 62–83; PULSE 78–951; RESP 16–33; TEMP 36.6–37.4; O2SAT 90–100
[2024-02-07] MEDS: ALBUMIN HUMAN 25% 25 GM/100 ML 100 ML IVPB ×4 (00:10→17:54)
[2024-02-07] MEDS: AMIODARONE 360 MG/D5W 200 ML 360 MG/200 ML BAG 16.67 MG IV CONT (00:45)
[2024-02-07] MEDS: NOREPINEPHRINE 8 MG/D5W 250 ML 8 MG/250 ML BAG 26.25 MG IV CONT (02:00)
[2024-02-07] MEDS: CENTRAL LINE FLUSH 10 ML IV PUSH ×3 (07:19→23:19)
[2024-02-07] MEDS: VANCOMYCIN 1,250 MG/NS 250 ML 1,250 MG/250 ML BAG 166.67 MG IVPB (07:30)
[2024-02-07] MEDS: AMIODARONE 360 MG/D5W 200 ML 360 MG/200 ML BAG 33.33 MG IV CONT ×3 (08:00→20:00)
[2024-02-07 08:01] LABS: Basophils Percent Auto 0.3 % (0.2-1.2); Eosinophils Percent Auto 0.3 % (0-4.4); Hematocrit 33.7 % (37.0-47.0); Hemoglobin 10.6 g/dL (12.0-15.0); Immature Granulocyte Absolute 0.05 K/mm3 (0.00-0.031); Immature Granulocyte Percent A 0.8 % (0-0.5); Lymphocytes Absolute Auto 0.65 K/mm3 (0.9-3.2); Lymphocytes Percent Auto 10.8 % (18.3-44.2); Mean Corpuscular HGB Conc 31.5 g/dl (32-36); Mean Corpuscular Hemoglobin 29.1 pg (26-34); Mean Corpuscular Volume 92.6 fl (80-100); Mean Platelet Volume 11.5 fl (7.4-10.4); Monocytes Absolute Auto 0.6 K/mm3 (0.1-0.6); Monocytes Percent Auto 9.8 % (2.6-8.5); Neutrophils Absolute Auto 4.7 K/mm3 (1.3-6.7); Platelet Count Result 274 k/mm3 (150-375); Red Blood Count 3.64 M/mm3 (4.2-5.4); Red Cell Distribution Width 14.6 % (11.5-14.5)
[2024-02-07 08:20] LABS: INR 2.2; Partial Thromboplastin Time 45.9 Seconds (22.3-36.8); Prothrombin Time 24.6 Seconds (11.1-14.7)
[2024-02-07] MEDS: ONDANSETRON INJ 4 MG/2 ML VIAL IV PUSH (08:44)
[2024-02-07] MEDS: metroNIDAZOLE 500 MG/ISO 100ML 500 MG/100 ML BAG 100 MG IVPB ×2 (08:45→15:58)
[2024-02-07] MEDS: SODIUM BICARBONATE TAB 650 MG TABLET PO ×2 (09:15→17:54)
[2024-02-07] MEDS: PANTOPRAZOLE SODIUM IV 40 MG VIAL IV PUSH (09:15)
[2024-02-07] MEDS: MIDODRINE HCL 10 MG TABLET PO ×3 (09:15→17:54)
[2024-02-07] MEDS: ANASTROZOLE (*CHEMO) 1 MG TABLET PO (09:23)
--- NOTE | 2024-02-07 09:24 | PM.CNCAR ---
Assessment and Plan Assessment and plan (1) Cardiac arrest: Code(s): I46.9 - Cardiac arrest, cause unspecified Status: Acute Assessment and Plan: VT/VF cardiac arrest. Echocardiogram ordered and pending. Recent echocardiogram from November 2023 showed preserved LVEF. Please keep electrolytes optimized. Correct underlying metabolic derangements. Continue Amiodarone drip. I discussed code status with the patient. She wishes to remain full code for now. Not sure if she fully understands the gravity of her situation though. Given VT/VF, recommend ischemic evaluation with cardiac catheterization. Patient is not sure if she would want to undergo cardiac procedures at this time, and she wants to think about it. Since she is currently clinically stable, does not need emergent cardiac catheterization. In addition, she did receive Eliquis 12/ PM. Therefore, hold Eliquis in case she decides to undergo cath. Start Heparin drip. In addition, patient has allergic reaction of anaphylaxis listed with iodinated contrast. Will need premedication for contrast allergy. Will start ASA 81mg once daily, along with high intensity statin. (2) Elevated troponin: Code(s): R79.89 - Other specified abnormal findings of blood chemistry Status: Acute Assessment and Plan: As above. Continue to trend troponins until peak. (3) Shock: Code(s): R57.9 - Shock, unspecified Status: Acute Assessment and Plan: Still requiring pressors. Concern for sepsis. Blood cultures pending. (4) Acute hypokalemia: Code(s): E87.6 - Hypokalemia Status: Acute Assessment and Plan: Please keep K > 4. (5) Acute kidney injury superimposed on CKD: Code(s): N17.9 - Acute kidney failure, unspecified; N18.9 - Chronic kidney disease, unspecified Status: Acute Assessment and Plan: SCr is improving. (6) Essential (primary) hypertension: Code(s): I10 - Essential (primary) hypertension Status: Chronic Assessment and Plan: Hold antihypertensive agents due to pressor requirement. (7) Diabetes type 2, controlled: Qualifiers: Diabetes mellitus chcf insulin use: without chcf use Diabetes mellitus complication status: without complication Qualified Code(s): E11.9 - Type 2 diabetes mellitus without complications Code(s): E11.9 - Type 2 diabetes mellitus without complications Status: Acute Assessment and Plan: Management as per primary team. (8) Paroxysmal atrial flutter: Code(s): I48.92 - Unspecified atrial flutter Status: Acute Assessment and Plan: Hold Metoprolol due to pressor requirement. Holding Eliquis for possible LHC. Started on Heparin drip instead. (9) History of pulmonary embolism: Code(s): Z86.711 - Personal history of pulmonary embolism Status: Acute Assessment and Plan: Holding Eliquis for possible LHC. Started on Heparin drip instead. Plan Recommendations and plan discussed with Drum Sealer. History of Present Illness History of Present Illness Consult date/time: 02/07/24 09:24 Requesting physician: Radha Ruvalcaba PA-C Consult reason: Other (Cardiac arrest) Reason For Visit: Hypotension, Refractory, Septic shock Narrative: We are consulted for cardiac arrest. This is a 74 year old female with paroxysmal atrial flutter, hypertension, hyperlipidemia, pulmonary embolism on Eliquis, breast cancer, hypothyroidism, CKD, diabetes. Echocardiogram in June 2023 showed LVEF 35-40%. She was supposed to follow up with us as an outpatient after that hospitalization in June, however, had delayed follow up and was seen in our office in November 2023. Patient was admitted to [facility] on 02/04 for shock. Presented with hypotension from her living facility. Per EMS, blood pressure as low as 77/44mmHg. Admitted to the ICU for shock, concerning for sepsis, hypovolemia. Yesterday evening, it appeared that patient was in polymorphic VT. CODE REBECA called. Chest compressions were started immediately. She received Epinephrine 1mg and at 2 minutes, she was noted to be in VF for which she was defibrillated with 200 joules. CPR was resumed, and after a minute, the patient regained consciousness. Patient regained consciousness before she could be intubated. When she regained consciousness, she was noted to be in rapid AFIB and started on Amiodarone. Had a brief run of SVT in the 190s before converting to normal rhythm. EKG on admission shows sinus rhythm, old inferior infarct, STTW abnormal in the lateral leads. Most recent EKG from last night without any significant changes. At the time of my evaluation, patient is awake, alert, conversive. States she feels okay. Denies any recent chest pain at home, or shortness of breath. Doesn't seem to comprehend the gravity of her situation and current illness. Workup shows: INR of 2.2 Potassium currently 3.3, but was 2.7 on admission SCr currently 1.70, was 2.7 on admission Troponins are 0.016, 0.254, 0.426 CT Abdomen/Pelvis shows suggestion of decubitus ulcer and underlying inflammation capsularis and/or edema fo the medial right buttock Outside records from [facility] were personally reviewed. Transthoracic echocardiogram 12/13/2023 showed LVEF 55-60%, mild enlargement of RV with normal RVSF, small pericardial effusion, no significant valvular disease. BMP on 01/24/2024 showed normal K of 4.0, Cr of 0.70. 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 Bullous pemphigoid On daily prednisone. 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 Neoadjuvant chemotherapy with TCH and Perjeta. status left breast mastectomy with sentinel lymph node biopsy on 07/31/2019. Obstructive sleep apnea on CPAP Pulmonary embolism Surgical History Surgical History H/O dilation and curettage H/O oophorectomy one ovary-unsure side History of cardiac catheterization History of total mastectomy of left breast (~07/2019) History of cystoscopy With lithotripsy and stent placement. History of cholecystectomy History of bilateral cataract extraction History of tubal ligation History of appendectomy History of hysterectomy Status post cataract extraction of both eyes with insertion of intraocular lens Hx of cholecystectomy History of partial mastectomy of left breast Approximately 2018 Family History Family History Father Acute myocardial infarction Father Cerebrovascular accident Acute myocardial infarction Tobacco abuse Mother Cerebrovascular accident Sibling No problems noted. Social History Social History Social History: The patient is never and has no children. 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 She is currently in assisted living at [facility], and has been there for a couple of months since she started chemotherapy. She also owns a home in [place], where she hopes to return. Her [id number], Sofia, is her surrogate decision maker. She wishes to be a full code. 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 Gender identity (if verbalized by the patient): Female Sexual Orientation (if Verbalized by the Patient): Straight or Heterosexual Spiritual care concerns: No Agree to blood products: Yes Meds Home Medications and Allergies Home Medications ?Medication ?Instructions ?Recorded ?Confirmed ?Type blood sugar diagnostic (Contour #100 ea 05/03/19 02/05/24 Rx Next Test Strips) blood sugar diagnostic (Blood #100 ea 12/25/19 02/05/24 Rx Glucose Test strips) lancets (Lancets, Super Thin) #100 ea 12/25/19 02/05/24 Rx cetirizine 10 mg tablet (Zyrtec) 10 mg PO DAILY #7 tabs 12/25/20 02/05/24 Rx ascorbate calcium (vitamin C) 500 500 mg PO DAILY 05/26/21 02/05/24 History mg tablet hydrocolloid dressing 4 X 4 #20 ea 12/15/21 02/05/24 Rx (DuoDERM CGF Adhesive Border Dressing) silicone,dressing-foam bandage 3 #10 ea 02/18/23 02/05/24 Rx X 3 albuterol sulfate 90 mcg/actuation 1 inh inhalation Q4H PRN shortness 05/10/23 02/05/24 Rx aerosol inhaler (ProAir HFA) of breath or wheezing #6.7 grams atorvastatin 10 mg tablet 10 mg PO DAILY 07/16/23 02/05/24 History blood-glucose meter (Accu-Chek #1 ea 08/03/23 02/05/24 Rx Guide Glucose Meter) indapamide 1.25 mg tablet 1.25 mg PO DAILY 08/16/23 02/05/24 History foam bandage 9.2 X 9.2 (Mepilex #5 ea 09/06/23 02/05/24 Rx Border Sacrum) empagliflozin 10 mg tablet 10 mg PO DAILY #30 tabs 10/23/23 02/05/24 Rx (Jardiance) metformin 1,000 mg tablet 1,000 mg PO BID #180 tabs 11/07/23 02/05/24 Rx potassium chloride 20 mEq 20 meq PO DAILY #30 tabs 12/16/23 02/05/24 Rx tablet,extended release sodium chloride 1,000 mg soluble 1,000 mg PO BID #60 tabs 12/16/23 02/05/24 Rx tablet apixaban 5 mg tablet (Eliquis) 5 mg PO Q12HR #60 tabs 01/03/24 02/05/24 Rx furosemide 20 mg tablet 20 mg PO BID #60 tabs 01/15/24 02/05/24 Rx VITAMIN D-3 1000UNIT TAB 1 cap PO DAILY 02/05/24 02/05/24 History anastrozole 1 mg tablet 1 mg PO DAILY 02/05/24 02/05/24 History cyanocobalamin (vitamin B-12) 1,000 mcg PO DAILY 02/05/24 02/05/24 History 1,000 mcg tablet (Vitamin B-12) donepezil 10 mg tablet 10 mg PO QPM 02/05/24 02/05/24 History ferrous sulfate 325 mg (65 mg 325 mg PO BID 02/05/24 02/05/24 History iron) tablet (FeroSul) levothyroxine 112 mcg tablet 112 mcg PO DAILY 02/05/24 02/05/24 History memantine 10 mg tablet 10 mg PO BID 02/05/24 02/05/24 History metoprolol succinate 100 mg 100 mg PO DAILY 02/05/24 02/05/24 History tablet,extended release 24 hr sertraline 100 mg tablet 200 mg PO DAILY 02/05/24 02/05/24 History spironolactone 25 mg tablet 12.5 mg PO DAILY 02/05/24 02/05/24 History Allergies Allergy/AdvReac Type Severity Reaction Status Date / Time amoxicillin Allergy Severe DIFFICULTY Verified 09/06/23 10:56 BREATHING/HIVES Iodinated Contrast Media Allergy Severe Anaphylaxis Verified 09/06/23 10:56 lisinopril Allergy Severe Swelling Verified 09/06/23 10:56 of Lip/Tongue/Throat methotrexate Allergy Severe Hives Verified 09/06/23 10:56 Penicillins Allergy Severe DIFFICULTY Verified 09/06/23 10:56 BREATHING/HIVES tetracycline Allergy Severe Hives Verified 09/06/23 10:56 metformin Allergy Unknown Jittery Verified 09/06/23 10:56 adhesive tape AdvReac Intermediate SKIN PEELS Verified 09/06/23 10:56 OFF codeine AdvReac Mild NAUSEA/VOMI Verified 09/06/23 10:56 TING furosemide AdvReac Unknown DOESN'T Verified 09/06/23 10:56 REMEMBER ioversol AdvReac Unknown DOESN'T Verified 09/06/23 10:56 REMEMBER Vital Signs Vital Signs - 24 hr 02/06/24 10:00 02/06/24 10:00 02/06/24 10:00 Temperature Pulse Rate 54 L 57 L 60 Respiratory Rate 22 H Blood Pressure 99/55 L 102/60 Pulse Oximetry 94 Oxygen Delivery Oxygen Flow Rate 02/06/24 11:15 02/06/24 11:30 02/06/24 12:00 Temperature Pulse Rate 57 L 54 L Respiratory Rate Blood Pressure 101/66 95/58 L Pulse Oximetry Oxygen Delivery Room Air Oxygen Flow Rate 02/06/24 12:00 02/06/24 12:00 02/06/24 12:58 Temperature Pulse Rate 68 67 65 Respiratory Rate 20 Blood Pressure 94/61 L 94/61 L Pulse Oximetry 96 Oxygen Delivery Oxygen Flow Rate 02/06/24 14:00 02/06/24 14:00 02/06/24 14:00 Temperature Pulse Rate 59 L 59 L 63 Respiratory Rate 14 Blood Pressure 92/58 L 92/58 L 96/64 L Pulse Oximetry 95 Oxygen Delivery Oxygen Flow Rate 02/06/24 14:00 02/06/24 16:00 02/06/24 16:00 Temperature 36.6 C Pulse Rate 63 64 64 Respiratory Rate 19 Blood Pressure 85/55 L 85/55 L Pulse Oximetry 98 Oxygen Delivery Oxygen Flow Rate 02/06/24 16:00 02/06/24 16:00 02/06/24 16:45 Temperature Pulse Rate 67 144 H Respiratory Rate Blood Pressure 65/25 L Pulse Oximetry Oxygen Delivery Room Air Oxygen Flow Rate 02/06/24 17:00 02/06/24 18:00 02/06/24 18:00 Temperature Pulse Rate 143 H 104 H 87 Respiratory Rate 23 H Blood Pressure 74/54 L 89/64 L 93/65 L Pulse Oximetry 99 Oxygen Delivery Oxygen Flow Rate 02/06/24 18:00 02/06/24 18:38 02/06/24 19:59 Temperature Pulse Rate 73 79 98 Respiratory Rate 20 Blood Pressure 86/60 L Pulse Oximetry 99 Oxygen Delivery Room Air Oxygen Flow Rate 02/06/24 20:00 02/06/24 20:00 02/06/24 20:00 Temperature 36.8 C Pulse Rate 98 92 92 Respiratory Rate 18 Blood Pressure 92/67 L 92/69 L Pulse Oximetry 99 Oxygen Delivery Oxygen Flow Rate 02/06/24 21:03 02/06/24 21:15 02/06/24 22:00 Temperature Pulse Rate 77 90 87 Respiratory Rate Blood Pressure Pulse Oximetry 97 Oxygen Delivery Autopap Oxygen Flow Rate 02/06/24 22:00 02/06/24 22:00 02/06/24 22:30 Temperature 36.8 C Pulse Rate 87 85 90 Respiratory Rate 25 H 18 Blood Pressure 79/58 L 79/58 L 103/77 Pulse Oximetry 95 97 Oxygen Delivery Oxygen Flow Rate 02/07/24 00:00 02/07/24 00:00 02/07/24 00:00 Temperature Pulse Rate 90 95 78 Respiratory Rate 18 Blood Pressure 103/79 Pulse Oximetry 97 Oxygen Delivery Autopap Oxygen Flow Rate 02/07/24 00:00 02/07/24 00:45 02/07/24 00:45 Temperature Pulse Rate 91 91 91 Respiratory Rate 21 H Blood Pressure 104/75 106/78 Pulse Oximetry 97 Oxygen Delivery Oxygen Flow Rate 02/07/24 01:13 02/07/24 01:55 02/07/24 02:00 Temperature Pulse Rate 80 81 91 Respiratory Rate Blood Pressure Pulse Oximetry 95 Oxygen Delivery Autopap Oxygen Flow Rate 02/07/24 02:00 02/07/24 02:00 02/07/24 02:00 Temperature Pulse Rate 88 80 80 Respiratory Rate 16 Blood Pressure 101/76 Pulse Oximetry Oxygen Delivery Oxygen Flow Rate 02/07/24 02:00 02/07/24 03:00 02/07/24 03:00 Temperature Pulse Rate 92 88 88 Respiratory Rate 23 H Blood Pressure 99/73 L Pulse Oximetry 100 Oxygen Delivery Oxygen Flow Rate 02/07/24 06:00 02/07/24 06:00 02/07/24 06:00 Temperature Pulse Rate 85 85 83 Respiratory Rate 25 H Blood Pressure 98/72 L 106/79 Pulse Oximetry 96 Oxygen Delivery Oxygen Flow Rate 02/07/24 06:00 02/07/24 08:00 02/07/24 08:00 Temperature Pulse Rate 99 98 98 Respiratory Rate 24 H Blood Pressure 106/79 Pulse Oximetry 100 Oxygen Delivery High Flow Therapy with Na Oxygen Flow Rate 9 02/07/24 08:00 Temperature 36.6 C Pulse Rate 98 Respiratory Rate 24 H Blood Pressure 96/71 L Pulse Oximetry 100 Oxygen Delivery Oxygen Flow Rate Exam Const: General: no acute distress Other: Elderly female that appears older than stated age. HENMT: Mouth: Yes dry mucous membranes Eyes: General: appearance normal, both eyes and all related structures Sclera: sclerae normal Resp: Effort & Inspection: normal respiratory effort Auscultation: clear to auscultation bilaterally Cardio: Rate: regular rate Rhythm: regular rhythm Heart sounds: no murmurs Skin: General skin exam: normal color Neuro: Speech: normal speech Psych: Mental Status: mental status grossly normal Affect: normal affect Results Labs and Meds 02/07/24 03:40 02/06/24 17:04 Lab results: Cardiac Enzymes 02/06/24 02/06/24 Range/Units 17:04 22:04 AST 136 H (14-36) U/L Troponin I 0.254 H* 0.426 H* D (0.000-0.034) ng/mL Coagulation 02/07/24 Range/Units 03:40 PT 24.6 H D (11.1-14.7) Seconds APTT 45.9 H (22.3-36.8) Seconds CBC 02/06/24 02/07/24 Range/Units 17:04 03:40 WBC 7.6 6.0 (4.5-10.0) K/mm3 RBC 3.86 L 3.64 L (4.2-5.4) M/mm3 Hgb 11.2 L 10.6 L (12.0-15.0) g/dL Hct 34.9 L 33.7 L (37.0-47.0) % Plt Count 284 274 (150-375) k/mm3 Lymph # (Auto) 2.16 0.65 L (0.9-3.2) K/mm3 [place] # (Auto) 0.8 H 0.6 (0.1-0.6) K/mm3 Eos # (Auto) 0.1 0.0 (0-0.3) K/mm3 Baso # (Auto) 0.0 0.0 (0.0-0.1) K/mm3 Comprehensive Metabolic Panel 02/06/24 02/06/24 Range/Units 17:03 17:04 Sodium 136 L 136 L (137-145) mmol/L Potassium 3.4 3.3 L (3.4-5.0) mmol/L Chloride 102 101 (98-107) mmol/L Carbon Dioxide 16 L 16 L (22-30) mmol/L BUN 30 H 30 H (7-17) mg/dL Creatinine 1.70 H 1.70 H (0.7-1.0) mg/dL Glucose 168 H 169 H (65-110) mg/dL Calcium 8.2 L 8.1 L (8.4-10.2) mg/dL AST 136 H (14-36) U/L ALT 50 H (6-35) U/L Alkaline Phosphatase 70 (38-126) U/L Total Protein 6.0 L (6.3-8.2) g/dL Albumin 3.4 L (3.5-5.1) g/dL Intake and Output 02/06/24 02/07/24 02/07/24 23:59 07:59 15:59 Intake Total 496.1 746.5 250 Output Total 1900 Balance -1403.9 746.5 250 Intake: IV 496.1 746.5 250 Amiodarone 360 mg/D5w 200 ml 80.5 257.0 360 mg In 200 ml @ 0.5 MG/MIN 16.667 mls/hr IV CONT .Q12H [facility] Rx#:[id number] Norepinephrine 8 mg/D5w 250 ml 165.6 189.5 8 mg In 250 ml @ 14 MCG/MIN 26. 25 mls/hr IV CONT .Q9H32M [facility] Rx#:[id number] Albumin Human 25% 25 gm/100 ml 100 200 100 ml @ 60 mls/hr IVPB Q6HR [facility] Rx#:[id number] Cefepime 1 gm/Ns 50 ml 1 gm In 50 50 ml @ 100 mls/hr IVPB Q24H [facility] Rx#:[id number] Vancomycin 1,250 mg/Ns 250 ml 1 250 ,250 mg In 250 ml @ 166.667 mls /hr IVPB Q36H [facility] Rx#:[id number] metroNIDAZOLE 500 MG/ISO 100ML 100 100 500 mg In 100 ml @ 100 mls/hr IVPB Q8H [facility] Rx#:[id number] Output: Urine 1900 Other: Number of Bowel Movements Today 1
--- NOTE | 2024-02-07 09:42 | ECG_ITS ---
Test Date: 2024-02-07 09:56:37 Measurements Intervals [place] Rate: 96 P: 48 NV: 190 QRS: -27 QRSD: 81 T: 151 QT: 313 QTc: 397 Interpretive Statements SINUS RHYTHM WITH FIRST DEGREE AV BLOCK WITH OCCASIONAL VENTRICULAR PREMATURE COMPLEXES LOW QRS VOLTAGE IN PRECORDIAL LEADS [QRS DEFLECTION < 1.0 mV IN CHEST LEADS] POSSIBLE ANTERIOR MYOCARDIAL INFARCTION , PROBABLY OLD [30 ms Q WAVE IN V3/V4, OR R < 0.2 mV IN V4] INFERIOR MYOCARDIAL INFARCTION , PROBABLY OLD [40+ ms Q WAVE AND/OR ST/T ABNORMALITY IN II/aVF] Compared to ECG 02/06/2024 17:38:21 SINUS RHYTHM NOW PRESENT Electronically Signed On 02-07-2024 14:58:38 SIGNALLING AND COMMUNICATIONS ENGINEER by Danuta Caceres M.D.
[2024-02-07 09:48] LABS: Anion Gap 19 mmol/L (4-12); Carbon Dioxide 15 mmol/L (22-30); Chloride 103 mmol/L (98-107); Sodium 137 mmol/L (137-145)
[2024-02-07 09:49] LABS: Bilirubin,Total 0.5 mg/dL (0.2-1.3); Blood Urea Nitrogen 26 mg/dL (7-17); Calcium 8.5 mg/dL (8.4-10.2); Estimated CRCL calculation 31 ml/min; Estimated Glomerular Filt Rate 31; Glucose 203 mg/dL (65-110); Magnesium 1.9 mg/dL (1.6-2.3)
[2024-02-07 09:52] LABS: Alanine Aminotransferase 38 U/L (6-35); Aspartate Amino Transferase 134 U/L (14-36)
[2024-02-07] MEDS: HEPARIN SODIUM 5,000 UNITS/ML VIAL 4000 UNITS IV PUSH (10:05)
[2024-02-07] MEDS: HEPARIN SOD/D5W 100 UNITS/ML 25,000 UNITS/250 ML BAG 9 UNITS IV CONT (10:06)
[2024-02-07 10:14] LABS: Phosphorus 2.1 mg/dL (2.5-4.5)
[2024-02-07 10:27] LABS: Troponin I 0.411 ng/mL (0.000-0.034)
[2024-02-07 10:38] LABS: Alkaline Phosphatase 65 U/L (38-126); Total Protein 6.2 g/dL (6.3-8.2)
[2024-02-07] MEDS: ATORVASTATIN 40 MG TABLET 80 MG PO (10:48)
[2024-02-07] MEDS: SODIUM BICARBONATE 8.4% 50 MEQ/50 ML SYRINGE 100 MEQ IV PUSH (10:48)
[2024-02-07] MEDS: ASPIRIN 81 MG ENTERIC TABLET PO (10:48)
[2024-02-07] MEDS: CEFEPIME 1 GM/NS 50 ML 1 GM/50 ML BAG IVPB ×2 (11:00→21:13)
--- NOTE | 2024-02-07 11:16 | PCNFU ---
Nutrition Follow-Up Complete: Increased protein energy needs related to wound healing as evidenced by pressure injuries Goal: Adequate intakes at least 75% meals and supplements to support wound healing Patient has limited progress towards goal. Pt current nutrition is DBCC with Andre BID and Glucerna shakes BID. Last recorded weight is 94.9 kg, stable. Bowel Motility: +BM reported 02/05 Labs Reviewed: Hct 33.7, Hgb 10.6 Meds Noted:Heparin, Fish Oil, Vit B complex Skin: Stage III-thigh, Stage 2-buttock Additional Notes: Patient remains on a DBCC diet. Refused breakfast. Told nursing she was not a breakfast eater. Diet supplements continue of Glucerna shake BID for an additional 220 kcal and 10 gm protein and Andre BID for 80 kcal and 2.5 gm protein, 7 gm glutamine, 7gm arginine. PO intake encouraged. Agree with diet orders. Monitoring intakes, weights, labs, supplement tolerance, skin, plan of care Follow up in 5 days
--- NOTE | 2024-02-07 11:47 | WPDINTPN ---
Progress Note: A&P Assessment and Plan (1) Cardiac arrest: Code(s): I46.9 - Cardiac arrest, cause unspecified Status: Acute Assessment and Plan: Cardiac arrest V-tach/VFib, multiple episodes of V-tach. -continue amiodarone infusion at 1 mg/min -appreciate cardiology evaluation and recommendations -patient may require ischemic evaluation with coronary angiography, patient at this time does not want to undergo cardiac procedures. -starting heparin infusion -premedicating patient for contrast allergy -echo has been ordered and pending (2) Shock: Code(s): R57.9 - Shock, unspecified Status: Acute Assessment and Plan: Patient presented with hypotension. Although she does have decubitus ulcer her WBC was normal and procalcitonin level is on the lower side Patient has decreased EF of 30-35% on last echo done in June 2023, hence it appears to be a multifactorial secondary to sepsis, hypovolemia, and cardiogenic Patient received adequate IV fluids, but unknown how long she was hypotensive. Continue Levophed to maintain mean arterial pressures > 65 mmHg at all times for adequate end organ perfusion -TSH within normal limits -random cortisol was within normal limits -continue midodrine (3) Sepsis: Qualifiers: Sepsis type: sepsis due to unspecified organism Sepsis acute organ dysfunction status: with acute organ dysfunction Severe sepsis acute organ dysfunction type: acute renal failure Acute renal failure type: unspecified Severe sepsis shock status: with septic shock Qualified Code(s): A41.9 - Sepsis, unspecified organism; R65.21 - Severe sepsis with septic shock; N17.9 - Acute kidney failure, unspecified Code(s): A41.9 - Sepsis, unspecified organism Status: Acute Assessment and Plan: Normal WBC and lactic acid level Procalcitonin 0.2 UA negative for suggestion of UTI She does have a decubitus ulcer Continue vancomycin cefepime and Flagyl Local wound care (4) Decubitus ulcer: Qualifiers: Pressure injury location: buttock Pressure injury stage: stage 2 Laterality: right Qualified Code(s): L89.312 - Pressure ulcer of right buttock, stage 2 Code(s): L89.90 - Pressure ulcer of unspecified site, unspecified stage Status: Acute Assessment and Plan: Evaluated by wound care nurses. Continue local wound care. 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 Due to hypotension and shock -start bicarbonate infusion (8) Acute kidney injury: Code(s): N17.9 - Acute kidney failure, unspecified Status: Acute Assessment and Plan: Presented with acute kidney injury and creatinine of 2.7 CK level mildly elevated at 238 Likely secondary to hypotension and hypovolemia Will hold further IV fluids as patient has history of congestive heart failure Continue low-fat titration to maintain mean arterial pressure Monitor see urine output electrolytes and creatinine CT scan of the abdomen pelvis does not show any stone or hydronephrosis Plan DVT prophylaxis -heparin infusion Stress ulcer prophylaxis -Protonix Nutrition -diabetic diet ordered Code Status -patient wishes to be Full Code Total Critical Care Time -36 minutes Due to a high probability of clinically significant, life threatening deterioration, the patient required my highest level of preparedness to intervene emergently and I personally spent this critical care time directly and personally managing the patient. This critical care time included obtaining a history; examining the patient; pulse oximetry; ordering and review of studies; arranging urgent treatment with development of a management plan; evaluation of patient's response to treatment; frequent reassessment; and discussions with other providers. It was exclusive of separately billable procedures and treating other patients and teaching time. Please see Assessment and Plan section and the rest of the note for further information on patient assessment and treatment This dictation may have been done utilizing a voice recognition system. Attempts have been made to correct errors. However, there may be uncorrected grammatical, spelling, and recognitions errors present. Subjective Date/time seen: 02/07/24 11:47 Interval history: Reason for consult: Shock, recurrent VFib, decubitus ulcer, acute kidney injury, metabolic acidosis, lactic acidosis 02/07/2024: Patient seen and examined the ICU, is awake, alert, having dry heaves. Denies any shortness of breath, chest pain, abdominal pain, nausea, vomiting at this time patient remains on amiodarone and Levophed infusions. Patient has been having runs of V-tach x2 overnight, 1 of the episodes was a code blue, she received epinephrine x1 and CPR with ROSC. Did not have to be intubated, patient was started on amiodarone infusion. Currently afebrile adequate urine output Review of Systems Review of Systems: All systems reviewed & are unremarkable except as noted in HPI and below Exam Narrative: General: Pt is old frail female who is alert awake and in NAD, kyphosis Lungs/Chest: Trachea central Clear BS B/L, No crackles or wheezing. Cardiac: Currently in sinus rhythm, S1-S2 is normal Circulation: Feet are warm, palpable pedal pulses Abdomen: Normal bowel sounds.. Soft. NT. ND. Extremities: No clubbing, cyanosis, mild pitting edema : Aleman in place Neurologic: Follows commands. Moves all 4 extremities PERRL. Awake, alert, oriented to place and person and date of Skin: No Rash patient has decubitus ulcer which was just examined and redressed by wound care nurses. Pictures reviewed in the chart Objective Data Vital Signs Vital Signs: Vital Signs - 24 hr 02/06/24 12:00 02/06/24 12:00 02/06/24 12:00 Temperature Pulse Rate 68 67 Respiratory Rate 20 Blood Pressure 94/61 L Pulse Oximetry 96 Oxygen Delivery Room Air Oxygen Flow Rate 02/06/24 12:58 02/06/24 14:00 02/06/24 14:00 Temperature Pulse Rate 65 59 L 59 L Respiratory Rate Blood Pressure 94/61 L 92/58 L 92/58 L Pulse Oximetry Oxygen Delivery Oxygen Flow Rate 02/06/24 14:00 02/06/24 14:00 02/06/24 16:00 Temperature Pulse Rate 63 63 64 Respiratory Rate 14 Blood Pressure 96/64 L 85/55 L Pulse Oximetry 95 Oxygen Delivery Oxygen Flow Rate 02/06/24 16:00 02/06/24 16:00 02/06/24 16:00 Temperature 97.8 F Pulse Rate 64 67 Respiratory Rate 19 Blood Pressure 85/55 L Pulse Oximetry 98 Oxygen Delivery Room Air Oxygen Flow Rate 02/06/24 16:45 02/06/24 17:00 02/06/24 18:00 Temperature Pulse Rate 144 H 143 H 104 H Respiratory Rate 23 H Blood Pressure 65/25 L 74/54 L 89/64 L Pulse Oximetry 99 Oxygen Delivery Oxygen Flow Rate 02/06/24 18:00 02/06/24 18:00 02/06/24 18:38 Temperature Pulse Rate 87 73 79 Respiratory Rate Blood Pressure 93/65 L 86/60 L Pulse Oximetry Oxygen Delivery Oxygen Flow Rate 02/06/24 19:59 02/06/24 20:00 02/06/24 20:00 Temperature 98.3 F Pulse Rate 98 98 92 Respiratory Rate 20 18 Blood Pressure 92/67 L Pulse Oximetry 99 99 Oxygen Delivery Room Air Oxygen Flow Rate 02/06/24 20:00 02/06/24 21:03 02/06/24 21:15 Temperature Pulse Rate 92 77 90 Respiratory Rate Blood Pressure 92/69 L Pulse Oximetry 97 Oxygen Delivery Autopap Oxygen Flow Rate 02/06/24 22:00 02/06/24 22:00 02/06/24 22:00 Temperature 98.2 F Pulse Rate 87 87 85 Respiratory Rate 25 H Blood Pressure 79/58 L 79/58 L Pulse Oximetry 95 Oxygen Delivery Oxygen Flow Rate 02/06/24 22:30 02/07/24 00:00 02/07/24 00:00 Temperature Pulse Rate 90 90 95 Respiratory Rate 18 18 Blood Pressure 103/77 Pulse Oximetry 97 97 Oxygen Delivery Autopap Oxygen Flow Rate 02/07/24 00:00 02/07/24 00:00 02/07/24 00:45 Temperature Pulse Rate 78 91 91 Respiratory Rate 21 H Blood Pressure 103/79 104/75 106/78 Pulse Oximetry 97 Oxygen Delivery Oxygen Flow Rate 02/07/24 00:45 02/07/24 01:13 02/07/24 01:55 Temperature Pulse Rate 91 80 81 Respiratory Rate Blood Pressure Pulse Oximetry 95 Oxygen Delivery Autopap Oxygen Flow Rate 02/07/24 02:00 02/07/24 02:00 02/07/24 02:00 Temperature Pulse Rate 91 88 80 Respiratory Rate 16 Blood Pressure 101/76 Pulse Oximetry Oxygen Delivery Oxygen Flow Rate 02/07/24 02:00 02/07/24 02:00 02/07/24 03:00 Temperature Pulse Rate 80 92 88 Respiratory Rate 23 H Blood Pressure 99/73 L Pulse Oximetry 100 Oxygen Delivery Oxygen Flow Rate 02/07/24 03:00 02/07/24 06:00 02/07/24 06:00 Temperature Pulse Rate 88 85 85 Respiratory Rate 25 H Blood Pressure 98/72 L Pulse Oximetry 96 Oxygen Delivery Oxygen Flow Rate 02/07/24 06:00 02/07/24 06:00 02/07/24 08:00 Temperature Pulse Rate 83 99 98 Respiratory Rate 24 H Blood Pressure 106/79 106/79 Pulse Oximetry 100 Oxygen Delivery High Flow Therapy with Na Oxygen Flow Rate 9 02/07/24 08:00 02/07/24 08:00 02/07/24 08:00 Temperature 97.9 F Pulse Rate 98 98 105 H Respiratory Rate 24 H Blood Pressure 96/71 L 100/79 Pulse Oximetry 100 Oxygen Delivery Oxygen Flow Rate 02/07/24 08:00 02/07/24 09:38 02/07/24 10:00 Temperature Pulse Rate 105 H 101 H 98 Respiratory Rate Blood Pressure 100/79 94/69 L 100/78 Pulse Oximetry Oxygen Delivery Oxygen Flow Rate 02/07/24 10:00 02/07/24 10:00 02/07/24 10:20 Temperature Pulse Rate 95 100 Respiratory Rate 33 H Blood Pressure 83/62 L Pulse Oximetry 97 100 Oxygen Delivery High Flow Nasal Cannula Oxygen Flow Rate 4 Intake/Output Intake/Output: Intake & Output 02/04/24 02/05/24 02/06/24 02/07/24 23:59 23:59 23:59 23:59 Intake Total 3615.3 1516.1 1164.0 Output Total 50 2600 Balance 3565.3 -1083.9 1164.0 Meds/Results Medications: Active Medications Generic Name Dose Route Start Last Admin Trade Name Freq PRN Reason Stop Dose Admin Albuterol 1 puff 02/05/24 23:39 Albuterol Sulfate (*Sp) Aerosol 1 Puff INHALATION Q4HRT PRN shortness of breath or wheezing Anastrozole 1 mg 02/06/24 09:00 02/07/24 09:23 Anastrozole (*Chemo) 1 Mg Tablet PO 1 mg DAILY KEATON Administration Apixaban 5 mg 02/06/24 09:00 02/06/24 22:02 Apixaban 5 Mg Tablet PO 5 mg Q12HR KEATON Administration Aspirin 81 mg 02/07/24 09:55 02/07/24 10:48 Aspirin 81 Mg Enteric Tablet PO 81 mg QAM KEATON Administration Atorvastatin Calcium 80 mg 02/07/24 09:55 02/07/24 10:48 Atorvastatin 40 Mg Tablet PO 80 mg DAILY KEATON Administration Dextrose 12.5 gm 02/05/24 19:30 Dextrose 50% 25 Gm/50 Ml Syringe IV PUSH PRN PRN Hypoglycemia Protocol Glucagon 1 mg 02/05/24 19:30 Glucagon For Inj 1 Mg Vial IM PRN PRN Hypoglycemia Protocol Glucose 15 gm 02/05/24 19:30 Glucose Oral Gel 15 Gm Of Glucse In 37.5 Gm Tube PO PRN PRN Hypoglycemia Protocol Heparin Sodium (Porcine) 4,000 units 02/07/24 09:37 Heparin Sodium 5,000 Units/Ml Vial IV PUSH PRN PRN aPTT less than 55 seconds Heparin Sodium (Porcine) 3,000 units 02/07/24 09:37 Heparin Sodium 5,000 Units/Ml Vial IV PUSH PRN PRN aPTT 55 - 70 seconds Norepinephrine Bitartrate 8 mg in 250 mls @ 26.25 mls/hr 02/05/24 17:30 02/07/24 10:00 Levophed 8 Mg/D5w 250 Ml IV CONT 14 mcg/min .Q9H32M KEATON 26.25 mls/hr Titration Protocol 14 MCG/MIN Dextrose 1,000 mls @ 100 mls/hr 02/05/24 19:30 Dextrose 5% 1,000 Ml IVPB PRN PRN Hypoglycemia Protocol Metronidazole 500 mg in 100 mls @ 100 mls/hr 02/06/24 00:00 02/07/24 08:45 Flagyl 500 Mg/Iso Soln 100 Ml IVPB 100 mls/hr Q8H KEATON Administration Vancomycin HCl 1,250 mg in 250 mls @ 166.667 mls/hr 02/07/24 06:00 02/07/24 09:00 Vancomycin 1,250 Mg/Ns 250 Ml IVPB Infused Q36H KEATON Infusion Albumin Human 100 mls @ 60 mls/hr 02/06/24 12:00 02/07/24 07:45 Albutein IVPB Infused Q6HR KEATON Infusion Amiodarone HCl/Dextrose 360 mg in 200 mls @ 33.333 mls/hr 02/06/24 23:55 02/07/24 08:00 Nexterone 360 Mg/D5w 200 Ml IV CONT 1 mg/min .Q6H KEATON 33.33 mls/hr Administration 1 MG/MIN Heparin Sodium/Dextrose 25,000 units in 250 mls @ 9 mls/hr 02/07/24 09:40 02/07/24 10:06 Heparin Sodium/D5w 100 Units/Ml IV CONT 900 units/hr .Q24H KEATON 9 mls/hr Administration Protocol 900 UNITS/HR Cefepime HCl 1 gm in 50 mls @ 100 mls/hr 02/07/24 10:25 Maxipime 1 Gm/Ns 50 Ml IVPB Q12HR [facility] Insulin Aspart 4 - 8 units 02/06/24 08:00 02/07/24 08:42 Insulin Aspart (*Bkc) 100 Units/Ml SUB-Q Not Given TIDWM [facility] Protocol Levothyroxine Sodium 112 mcg 02/06/24 06:30 02/07/24 08:42 Levothyroxine Sodium 112 Mcg Tablet PO Not Given DAILY@0630 [facility] Midodrine 10 mg 02/06/24 09:00 02/07/24 09:15 Midodrine Hcl 10 Mg Tablet PO 10 mg TID KEATON Administration Morphine Sulfate 2 mg 02/06/24 19:54 02/06/24 19:15 Morphine Sulfate (*Crx) 2 Mg/Ml Inj IV PUSH 2 mg Q6H PRN Administration Pain Rated 7-10 Pantoprazole Sodium 40 mg 02/05/24 19:35 02/07/24 09:15 Pantoprazole Sodium Iv 40 Mg Vial IV PUSH 40 mg QAM KEATON Administration Perflutren Lipid Microsphere 0 ml 02/06/24 17:05 Perflutren Lipid Microspheres 1.5 Ml Vial Diluted To 10 Ml Total Volume IV PUSH 02/09/24 17:05 ONCE PRN adequate visualization Protocol Prednisone 40 mg/ Prednisone 50 mg 02/07/24 19:00 10 mg PO 02/08/24 07:01 Q6H KEATON Sodium Bicarbonate 650 mg 02/06/24 09:00 02/07/24 09:15 Sodium Bicarbonate Tab 650 Mg Tablet PO 650 mg BID KEATON Administration Sodium Chloride 10 ml 02/05/24 22:00 02/07/24 07:19 Central Line Flush IV PUSH 10 ml Q8HR KEATON Administration Sodium Chloride 20 ml 02/05/24 18:52 Central Line Flush IV PUSH PRN PRN after blood draws Radiology Results: ITS Impressions Abdomen/Pelvis CT 02/05/24 16:21 IMPRESSION: Mild cardiomegaly, coronary atherosclerosis Probable prior left thoracotomy Status post cholecystectomy Suggestion of decubitus ulcer and underlying inflammation capsularis and/or pulmonary edema of the medial right buttock Extensive degenerative changes of the thoracic and lumbar spine and the hips, especially the left hip ADDENDUM: 02/05/24 1804 Correction: IMPRESSIONS: Suggestion of decubitus ulcer and underlying inflammation/cellulitis and or subcutaneous edema of the medial right buttock Chest X-Ray 02/07/24 08:04 Impression: No acute consolidation or pleural effusion. Possible COPD or mild chronic interstitial change. Stable cardiomegaly. Stable Mediport. Labs Labs: Laboratory Results - last 24 hr 02/06/24 02/06/24 02/06/24 12:03 17:03 17:04 WBC 7.6 RBC 3.86 L Hgb 11.2 L Hct 34.9 L MCV 90.4 MCH 29.0 MCHC 32.1 RDW 14.3 Plt Count 284 MPV 10.5 H Immature Gran % (Auto) 0.9 H Neut % (Auto) 59.1 Lymph % (Auto) 28.5 Richardson % (Auto) 9.9 H Eos % (Auto) 1.3 Baso % (Auto) 0.3 Lymph # (Auto) 2.16 Richardson # (Auto) 0.8 H Eos # (Auto) 0.1 Baso # (Auto) 0.0 Abs Immat Gran (auto) 0.07 H Absolute Neuts (auto) 4.5 Absolute Nucleated RBC 0.000 Nucleated RBC % 0.0 PT INR APTT Puncture Site ABG pH ABG pCO2 ABG pO2 ABG PO2/FiO2 Ratio ABG HCO3 ABG O2 Saturation ABG O2 Content ABG Base Excess A-a Gradient Oxyhemoglobin Carboxyhemoglobin Methemoglobin Reduced Hemoglobin Total Hemoglobin O2 Delivery Device O2 Liters/Min FiO2 Sodium 136 L 136 L Potassium 3.4 3.3 L Chloride 102 101 Carbon Dioxide 16 L 16 L Anion Gap 18 H 19 H BUN 30 H 30 H Creatinine 1.70 H 1.70 H Estim Creat Clear Calc 30 30 Estimated GFR 29 L 29 L Glucose 168 H 169 H POC Capillary Glucose 134 H Lactic Acid 4.6 H* Calcium 8.2 L 8.1 L Phosphorus 2.6 Magnesium 2.2 Total Bilirubin 0.5 Direct Bilirubin AST 136 H ALT 50 H Alkaline Phosphatase 70 Troponin I 0.254 H* Total Protein 6.0 L Albumin 3.4 L TSH (Reflex) 3.050 02/06/24 02/06/24 02/06/24 17:15 18:56 22:04 WBC RBC Hgb Hct MCV MCH MCHC RDW Plt Count MPV Immature Gran % (Auto) Neut % (Auto) Lymph % (Auto) Richardson % (Auto) Eos % (Auto) Baso % (Auto) Lymph # (Auto) Richardson # (Auto) Eos # (Auto) Baso # (Auto) Abs Immat Gran (auto) Absolute Neuts (auto) Absolute Nucleated RBC Nucleated RBC % PT INR APTT Puncture Site Right brachial ABG pH 7.369 ABG pCO2 25.9 L ABG pO2 103.6 H ABG PO2/FiO2 Ratio 3.70 ABG HCO3 14.6 L ABG O2 Saturation 97.7 ABG O2 Content 16.5 ABG Base Excess -9.1 A-a Gradient 65.5 Oxyhemoglobin 97.1 Carboxyhemoglobin 0.3 Methemoglobin 0.1 Reduced Hemoglobin 2.5 Total Hemoglobin 12.0 O2 Delivery Device Nasal cannula O2 Liters/Min 2.0 FiO2 28 Sodium Potassium Chloride Carbon Dioxide Anion Gap BUN Creatinine Estim Creat Clear Calc Estimated GFR Glucose POC Capillary Glucose 190 H Lactic Acid 1.7 Calcium Phosphorus Magnesium Total Bilirubin Direct Bilirubin AST ALT Alkaline Phosphatase Troponin I 0.426 H* D Total Protein Albumin TSH (Reflex) 02/07/24 03:40 WBC 6.0 RBC 3.64 L Hgb 10.6 L Hct 33.7 L MCV 92.6 MCH 29.1 MCHC 31.5 L RDW 14.6 H Plt Count 274 MPV 11.5 H Immature Gran % (Auto) 0.8 H Neut % (Auto) 78.0 H Lymph % (Auto) 10.8 L Richardson % (Auto) 9.8 H Eos % (Auto) 0.3 Baso % (Auto) 0.3 Lymph # (Auto) 0.65 L Richardson # (Auto) 0.6 Eos # (Auto) 0.0 Baso # (Auto) 0.0 Abs Immat Gran (auto) 0.05 H Absolute Neuts (auto) 4.7 Absolute Nucleated RBC 0.000 Nucleated RBC % 0.0 PT 24.6 H D INR 2.2 APTT 45.9 H Puncture Site ABG pH ABG pCO2 ABG pO2 ABG PO2/FiO2 Ratio ABG HCO3 ABG O2 Saturation ABG O2 Content ABG Base Excess A-a Gradient Oxyhemoglobin Carboxyhemoglobin Methemoglobin Reduced Hemoglobin Total Hemoglobin O2 Delivery Device O2 Liters/Min FiO2 Sodium 137 Potassium 4.0 Chloride 103 Carbon Dioxide 15 L Anion Gap 19 H BUN 26 H Creatinine 1.60 H Estim Creat Clear Calc 31 Estimated GFR 31 L Glucose 203 H POC Capillary Glucose Lactic Acid Calcium 8.5 Phosphorus 2.1 L Magnesium 1.9 Total Bilirubin 0.5 Direct Bilirubin 0.0 AST 134 H ALT 38 H Alkaline Phosphatase 65 Troponin I 0.411 H* Total Protein 6.2 L Albumin 4.0 TSH (Reflex) Quality VTE Prophylaxis VTE prophylaxis: mechanical ordered and pharmacologic ordered
[2024-02-07 12:12] LABS: Lactic Acid Reflex 1.7 mmol/L (0.7-2.0)
[2024-02-07 12:49] LABS: Glucose Point of Care 233 mg/dl (65-105)
[2024-02-07] MEDS: INSULIN ASPART (*BKC) 100 UNITS/ML SUB-Q (12:55)
[2024-02-07] MEDS: NOREPINEPHRINE 8 MG/D5W 250 ML 8 MG/250 ML BAG 24.38 MG IV CONT (13:03)
[2024-02-07] MEDS: PERFLUTREN LIPID MICROSPHERES 1.5 ML VIAL DILUTED TO 10 ML TOTAL VOLUME IV PUSH (13:59)
--- NOTE | 2024-02-07 13:59 | IVDEFINITY ---
Prior to administration of IV Definity the patient was educated on the risks and benefits of the imaging enhancing agent including potential adverse side effects. The patient verbalized understanding. Allergies were verified. No exclusion criteria were identified and at least one of the following inclusion criteria were met: 1) physician request, 2) patient technically difficult to image (per the [place] [employer] guidelines of two or more segments not discernable within the apical view), or 3) questionable left ventricular function. ?
--- NOTE | 2024-02-07 17:05 | ECHO_ITS ---
Patient Info Name: Hoa Balbuena Age: 74 years : 1950 Gender: Female Ht: 66 in Wt: 209 lbs BSA: 2.14 m2 HR: 85 bpm BP: 98 / 72 mmHg Technical Quality: Fair Exam Date: 02/07/2024 10:47 AM Exam Location: Echo Lab Patient Status: Inpatient Admit Date: 02/05/2024 Staff Ordering Physician: Radha Ruvalcaba PA-C Tissue Recovery Technician: David Fong RDCS Attending Provider: Jayro Younger MD Referring Physician: Peg MCDUFFIE; Exam Type: CA echo dop color flow w con Study Info Indications I46.2 - Cardiac arrest due to underlying cardiac condition Complete two-dimensional, color flow and Doppler transthoracic echocardiogram is performed with contrast to opacify the left ventricle and to improve the deliniation of the left ventricle endocardial borders. Strain analysis performed. Contrast/Agitated Saline Contrast/Ag. Saline: Definity Amount: 3.00 ml Existing IV Access: Yes IV Access Condition: patent with no signs of infiltration Summary 1. Left ventricular chamber dimension is moderately enlarged. 2. There is mildly increased left ventricular wall thickness. 3. Left ventricular systolic function is severely reduced, estimated at 20-25%. 4. Severe global hypokinesis with more pronounced hypokinesis of the anterolateral wall, anteroseptum. 5. Right ventricular systolic function is normal. 6. Left atrial chamber dimension is moderately enlarged. 7. There is mild aortic valve regurgitation. 8. There is mild to moderate mitral valve regurgitation. 9. There is small anterior pericardial effusion. Left Ventricle Severe global hypokinesis with more pronounced hypokinesis of the anterolateral wall, anteroseptum. Left ventricular chamber dimension is moderately enlarged. Left ventricular systolic function is severely reduced, estimated at 20-25%. There is mildly increased left ventricular wall thickness. Global longitudinal strain is abnormal at -10 %. Right Ventricle Right ventricular chamber dimension is normal. Right ventricular systolic function is normal. Left Atria Left atrial chamber dimension is moderately enlarged. Right Atria Right atrial chamber dimension is normal. Atrial Septum Intact interatrial septum visualized by color flow imaging. Aortic Valve The aortic valve is not well visualized. There is no aortic valve stenosis. There is mild aortic valve regurgitation. There is moderate aortic valve calcification. Pulmonic Valve The pulmonic valve is not well visualized. Mitral Valve There is mild to moderate mitral valve regurgitation. Tricuspid Valve There is trace tricuspid valve regurgitation. Pericardium/Pleural The pericardium appears epicardial fat pad. There is small anterior pericardial effusion. Inferior Vena Cava Dilated inferior vena cava with >50% collapse upon inspiration consistent with elevated right atrial pressure, 8 mmHg. Aorta The aortic root size at the sinus of Valsalva is normal. Left Ventricular Outflow Tract Name Value Normal LVOT 2D LVOT Diameter 2.06 cm LVOT Doppler LVOT Peak Gradient 2 mmHg LVOT Mean Gradient 1 mmHg LVOT VTI 9.80 cm LVOT VTI/AV VTI Ratio 0.66 LVOT Stroke Volume 32.67 ml LVOT CO 2.73 l/min LVOT CI 1.28 L/min/m2 Pulmonic Valve Name Value Normal PV Doppler PV Peak Gradient 2 mmHg Mitral Valve Name Value Normal MV Doppler MV Decel [place] 601.14 cm/s2 MV PHT 0 s MV Area (PHT) 5.97 cm2 4.00-5.00 MV Diastolic Function MV E Peak Velocity 76.37 cm/s MV A Peak Velocity 37.44 cm/s MV E/A 2.04 MV Decel Time 0 s Tricuspid Valve Name Value Normal Estimated PAP/RSVP RA Pressure 8 mmHg <=5 Aorta Name Value Normal Ascending Aorta Ao Root Diameter (MM) 3.05 cm Ao Root Diam Index (MM) 1.43 cm/m2 Aortic Valve Name Value Normal AV Doppler AV Peak Velocity 94.34 cm/s AV Peak Gradient 4 mmHg AV Mean Gradient 2 mmHg AV VTI 14.76 cm AV Area (Cont Eq VTI) 2.21 cm2 >=3.00 AV Area (Cont Eq Singh) 2.28 cm2 AV Regurgitation 2D LVOT Area 3.33 cm2 AV Regurgitation Doppler AR Decel Time 2 s AR Decel Attala 147.06 cm/s2 AR PHT 1 s Ventricles Name Value Normal LV Dimensions 2D/MM IVS Diastolic Thickness (2D) 0.85 cm 0.60-1.00 IVS Diastole Thickness (MM) 0.62 cm 0.60-0.90 LVID Diastole (2D) 5.99 cm 3.80-5.20 LVID Diastole (MM) 6.57 cm 3.80-5.20 LVIW Diastolic Thickness (2D) 0.79 cm 0.60-0.90 LVIW Diastolic Thickness (MM) 0.79 cm 0.60-0.90 LVID Systole (2D) 5.44 cm 2.20-3.50 LVID Systole (MM) 5.41 cm 2.20-3.50 LVOT Diameter 2.06 cm LV Mass (2D Cubed) 190.44 g 67.00-162.00 LV Mass Index (2D Cubed) 0.01 g/cm2 0.00-0.01 Relative Wall Thickness (2D) 0.26 LV Mass (MM Cubed) 186.58 g 67.00-162.00 LV Mass Index (MM Cubed) 0.01 g/cm2 0.00-0.01 Relative Wall Thickness (MM) 0.24 LV Fractional Shortening/Ejection Fraction 2D/MM LV Fractional Shortening (2D) 9 % 27-45 LV Fractional Shortening (MM) 18 % 27-45 LV EF (MM Teicholz) 36 % 54-74 LV EF (2D Teicholz) 20 % 54-74 LV Diastolic Volume (4C MOD) 125.29 ml LV EF (4C MOD) 23 % LV Diastolic Volume (2C MOD) 107.12 ml LV EF (2C MOD) 25 % LV Diastolic Volume (BP MOD) 118.65 ml 46.00-106.00 LV Diastolic Volume Index (BP MOD) 0.06 l/m2 0.03-0.06 LV Systolic Volume (BP MOD) 88.13 ml 14.00-42.00 LV Systolic Volume Index (BP MOD) 0.04 l/m2 0.01-0.02 LV EF (BP MOD) 26 % 54-74 LV Diastolic Length (4C) 9.67 cm LV Systolic Length (4C) 8.09 cm LV Stroke Volume (4C MOD) 28.94 ml Atria Name Value Normal LA Dimensions LA Dimension (MM) 4.79 cm 2.70-3.80 LA Volume (4C A-L) 56.63 ml LA Volume (BP A-L) 70.11 ml RA Dimensions RA Area (4C) 12.70 cm2 <=18.00 EchoPAC Name Value Normal PERRY AA peak sys SL (AWMA) 8 % AAS peak sys SL (AWMA) 10 % AI peak sys SL (AWMA) 25 % AL peak sys SL (AWMA) 22 % AP peak sys SL (AWMA) 20 % peak sys SL (AWMA) 24 % AVC (AWMA) 0 s BA peak sys SL (AWMA) 3 % BAS peak sys SL (AWMA) 17 % BI peak sys SL (AWMA) 4 % BL peak sys SL (AWMA) 6 % BP peak sys SL (AWMA) 7 % BS peak sys SL (AWMA) 7 % G peak SL(A2C) (AWMA) 8 % G peak SL(A4C) (AWMA) 10 % G peak SL(APLAX) (AWMA) 11 % G peak SL(Avg) (AWMA) 10 % MA peak sys SL (AWMA) 4 % MAS peak sys SL (AWMA) 13 % MD peak sys SL (AWMA) 9 % ML peak sys SL (AWMA) 4 % MP peak sys SL (AWMA) 8 % MS peak sys SL (AWMA) 6 % Report Signatures
[2024-02-07 17:07] LABS: Glucose Point of Care 171 mg/dl (65-105)
[2024-02-07 17:43] LABS: Partial Thromboplastin Time > 200.0 Seconds (22.3-36.8)
[2024-02-07] MEDS: predniSONE 40 MG, predniSONE 10 MG 50 MG PO (18:14)
[2024-02-08] VITALS (30 sets, daily range): BP systolic 88–139; BP diastolic 65–83; PULSE 80–112; RESP 15–27; TEMP 36.6–37.1; O2SAT 91–100
[2024-02-08] MEDS: ALBUMIN HUMAN 25% 25 GM/100 ML 100 ML IVPB ×4 (00:35→22:00)
[2024-02-08] MEDS: predniSONE 40 MG, predniSONE 10 MG 50 MG PO ×2 (01:30→07:23)
[2024-02-08] MEDS: AMIODARONE 360 MG/D5W 200 ML 360 MG/200 ML BAG 33.33 MG IV CONT ×4 (02:00→21:00)
[2024-02-08 02:15] LABS: Partial Thromboplastin Time > 200.0 Seconds (22.3-36.8)
[2024-02-08] MEDS: NOREPINEPHRINE 8 MG/D5W 250 ML 8 MG/250 ML BAG 18.75 MG IV CONT (06:00)
[2024-02-08 06:26] LABS: Basophils Percent Auto 0.2 % (0.2-1.2); Eosinophils Percent Auto 0.5 % (0-4.4); Hemoglobin 10.2 g/dL (12.0-15.0); Immature Granulocyte Absolute 0.05 K/mm3 (0.00-0.031); Immature Granulocyte Percent A 0.8 % (0-0.5); Lymphocytes Absolute Auto 0.36 K/mm3 (0.9-3.2); Lymphocytes Percent Auto 5.7 % (18.3-44.2); Mean Corpuscular HGB Conc 32.9 g/dl (32-36); Mean Corpuscular Hemoglobin 29.3 pg (26-34); Mean Corpuscular Volume 89.1 fl (80-100); Mean Platelet Volume 10.4 fl (7.4-10.4); Monocytes Absolute Auto 0.4 K/mm3 (0.1-0.6); Monocytes Percent Auto 6.7 % (2.6-8.5); Neutrophils Absolute Auto 5.4 K/mm3 (1.3-6.7); Neutrophils Percent Auto 86.1 % (45.5-73.1); Platelet Count Result 235 k/mm3 (150-375); Red Blood Count 3.48 M/mm3 (4.2-5.4); Red Cell Distribution Width 14.7 % (11.5-14.5); White Blood Count 6.3 K/mm3 (4.5-10.0)
[2024-02-08 06:38] LABS: Lactic Acid Reflex 1.7 mmol/L (0.7-2.0)
[2024-02-08 06:39] LABS: Alanine Aminotransferase 25 U/L (6-35); Albumin Level 4.2 g/dL (3.5-5.1); Alkaline Phosphatase 56 U/L (38-126); Anion Gap 13 mmol/L (4-12); Aspartate Amino Transferase 53 U/L (14-36); Bilirubin,Total 0.6 mg/dL (0.2-1.3); Blood Urea Nitrogen 18 mg/dL (7-17); Calcium 8.5 mg/dL (8.4-10.2); Carbon Dioxide 24 mmol/L (22-30); Chloride 101 mmol/L (98-107); Estimated CRCL calculation 36 ml/min; Estimated Glomerular Filt Rate 37; Glucose 217 mg/dL (65-110); Magnesium 1.5 mg/dL (1.6-2.3); Phosphorus 1.7 mg/dL (2.5-4.5); Potassium 3.1 mmol/L (3.4-5.0); Sodium 138 mmol/L (137-145)
[2024-02-08] MEDS: LEVOTHYROXINE SODIUM 112 MCG TABLET PO (07:22)
[2024-02-08] MEDS: CENTRAL LINE FLUSH 10 ML IV PUSH ×3 (07:22→23:19)
[2024-02-08 08:06] LABS: Glucose Point of Care 242 mg/dl (65-105)
--- NOTE | 2024-02-08 08:25 | WPDINTPN ---
Progress Note: A&P Assessment and Plan (1) Cardiac arrest: Code(s): I46.9 - Cardiac arrest, cause unspecified Status: Acute Assessment and Plan: Cardiac arrest V-tach/VFib, multiple episodes of V-tach. -continue amiodarone infusion at 1 mg/min -appreciate cardiology evaluation and recommendations -patient for angiographically today for ischemic evaluation per Cardiology. -continue Heparin infusion -premedicating patient for contrast allergy per Cardiology -02/07/2024: Echocardiogram Summary 1. Left ventricular chamber dimension is moderately enlarged. 2. There is mildly increased left ventricular wall thickness. 3. Left ventricular systolic function is severely reduced, estimated at 20-25%. 4. Severe global hypokinesis with more pronounced hypokinesis of the anterolateral wall, anteroseptum. 5. Right ventricular systolic function is normal. 6. Left atrial chamber dimension is moderately enlarged. 7. There is mild aortic valve regurgitation. 8. There is mild to moderate mitral valve regurgitation. 9. There is small anterior pericardial effusion (2) Cardiomyopathy: Code(s): I42.9 - Cardiomyopathy, unspecified Status: Acute Assessment and Plan: Severe cardiomyopathy likely ischemic which could be the cause of recurrent VFib/V-tach -mild to moderate MVR -patient benefit from angiography given severe global hypokinesis of the anterolateral wall and anteroseptum -patient require GDMT for her cardiomyopathy, when she is off pressors (3) Shock: Code(s): R57.9 - Shock, unspecified Status: Acute Assessment and Plan: Patient presented with hypotension. Although she does have decubitus ulcer her WBC was normal and procalcitonin level is on the lower side Patient has decreased EF of 30-35% on last echo done in June 2023, hence it appears to be a multifactorial secondary to sepsis, hypovolemia, and cardiogenic Patient received adequate IV fluids, but unknown how long she was hypotensive. Continue Levophed to maintain mean arterial pressures > 65 mmHg at all times for adequate end organ perfusion -02/04: Blood cultures negative times -02/05: Wound culture growing MRSA -continue cefepime, Flagyl, vancomycin (02/05) -TSH within normal limits -random cortisol was within normal limits -continue midodrine (4) Decubitus ulcer: Qualifiers: Laterality: right Pressure injury location: buttock Pressure injury stage: stage 2 Qualified Code(s): L89.312 - Pressure ulcer of right buttock, stage 2 Code(s): L89.90 - Pressure ulcer of unspecified site, unspecified stage Status: Acute Assessment and Plan: Evaluated by wound care nurses. Continue local wound care. Wound cultures and antibiotics as above (5) Diabetes type 2, controlled: Qualifiers: Diabetes mellitus complication status: without complication Diabetes mellitus management professional insulin use: without management professional use Qualified Code(s): E11.9 - Type 2 diabetes mellitus without complications Code(s): E11.9 - Type 2 diabetes mellitus without complications Status: Acute Assessment and Plan: Consistent carbohydrate diet Sliding scale insulin (6) Electrolyte abnormality: Code(s): E87.8 - Other disorders of electrolyte and fluid balance, not elsewhere classified Status: Acute Assessment and Plan: Potassium being aggressively replaced (7) Metabolic acidosis: Code(s): E87.20 - Acidosis, unspecified Status: Acute Assessment and Plan: Secondary to CRICKET. Due to hypotension and shock -off bicarb infusion (8) Acute kidney injury: Code(s): N17.9 - Acute kidney failure, unspecified Status: Acute Assessment and Plan: Presented with acute kidney injury and creatinine of 2.70 on admission CK level mildly elevated at 238 Likely secondary to hypotension and hypovolemia Will hold further IV fluids as patient has history of congestive heart failure Continue low-fat titration to maintain mean arterial pressure Monitor see urine output electrolytes and creatinine CT scan of the abdomen pelvis does not show any stone or hydronephrosis -urine output has been adequate a creatinine improving, 1.40 this morning Plan DVT prophylaxis -heparin infusion Stress ulcer prophylaxis -Protonix Nutrition -NPO except sips since patient is going for coronary angiography Code Status: Patient wishes to be Full Code Total Critical Care Time: 33 Minutes Discussed with patient updated with her condition and plan of care. She is ready for coronary angiography Due to a high probability of clinically significant, life threatening deterioration, the patient required my highest level of preparedness to intervene emergently and I personally spent this critical care time directly and personally managing the patient. This critical care time included obtaining a history; examining the patient; pulse oximetry; ordering and review of studies; arranging urgent treatment with development of a management plan; evaluation of patient's response to treatment; frequent reassessment; and discussions with other providers. It was exclusive of separately billable procedures and treating other patients and teaching time. Please see Assessment and Plan section and the rest of the note for further information on patient assessment and treatment This dictation may have been done utilizing a voice recognition system. Attempts have been made to correct errors. However, there may be uncorrected grammatical, spelling, and recognitions errors present. Subjective Date/time seen: 02/08/24 08:25 Interval history: Reason for consult: Shock, recurrent VFib, decubitus ulcer, acute kidney injury, metabolic acidosis, lactic acidosis 02/08/2024: Patient seen and examined in the ICU, is awake, alert. Denies any nausea, vomiting. Her cough seems to be improved per patient. Denies any chest pain, shortness of breath, abdominal pain at this time. No episodes of V-tach/VFib, through the day yesterday and overnight. Urine output has been adequate, patient afebrile, potassium is 3.1, creatinine is improving. Remains on amiodarone infusion at 1 mg/min Review of Systems Review of Systems: All systems reviewed & are unremarkable except as noted in HPI and below Exam Narrative: General: Old and frail female, is alert awake and in NAD, kyphosis Lungs/Chest: Trachea central Clear BS B/L, No crackles or wheezing. Cardiac: Currently in sinus rhythm, S1-S2 is normal Circulation: Feet are warm, palpable pedal pulses Abdomen: Normal bowel sounds.. Soft. NT. ND. Extremities: No clubbing, cyanosis, mild pitting edema : Aleman in place Neurologic: Follows commands. Moves all 4 extremities PERRL. Awake, alert, oriented to place and person and date of Skin: No Rash patient has decubitus ulcer which was just examined and redressed by wound care nurses. Pictures reviewed in the chart Objective Data Vital Signs Vital Signs: Vital Signs - 24 hr 02/07/24 09:38 02/07/24 10:00 02/07/24 10:00 Temperature Pulse Rate 101 H 98 95 Respiratory Rate Blood Pressure 94/69 L 100/78 Pulse Oximetry Oxygen Delivery Oxygen Flow Rate 02/07/24 10:00 02/07/24 10:20 02/07/24 12:00 Temperature Pulse Rate 100 96 Respiratory Rate 33 H Blood Pressure 83/62 L 93/72 L Pulse Oximetry 97 100 Oxygen Delivery High Flow Nasal Cannula Oxygen Flow Rate 4 02/07/24 12:00 02/07/24 12:00 02/07/24 12:00 Temperature 98.6 F Pulse Rate 87 87 87 Respiratory Rate 29 H 22 H Blood Pressure 93/72 L Pulse Oximetry 100 100 Oxygen Delivery High Flow Nasal Cannula Oxygen Flow Rate 3 02/07/24 13:03 02/07/24 14:00 02/07/24 14:00 Temperature 98.6 F Pulse Rate 93 105 H 105 H Respiratory Rate 17 Blood Pressure 95/83 L 102/75 Pulse Oximetry 100 Oxygen Delivery Oxygen Flow Rate 02/07/24 14:00 02/07/24 14:01 02/07/24 14:01 Temperature Pulse Rate 83 93 93 Respiratory Rate Blood Pressure 98/71 L 96/75 L 96/75 L Pulse Oximetry Oxygen Delivery Oxygen Flow Rate 02/07/24 16:00 02/07/24 16:00 02/07/24 16:00 Temperature 98.6 F Pulse Rate 96 96 96 Respiratory Rate 29 H 29 H Blood Pressure 100/76 Pulse Oximetry 90 90 Oxygen Delivery Room Air Oxygen Flow Rate 02/07/24 16:00 02/07/24 18:00 02/07/24 18:00 Temperature 98.9 F Pulse Rate 92 79 79 Respiratory Rate 26 H Blood Pressure 100/71 104/74 Pulse Oximetry 95 Oxygen Delivery Oxygen Flow Rate 02/07/24 18:00 02/07/24 20:00 02/07/24 20:00 Temperature Pulse Rate 95 951 H 99 Respiratory Rate 25 H Blood Pressure 106/70 Pulse Oximetry 98 Oxygen Delivery Nasal Cannula Oxygen Flow Rate 3 02/07/24 20:00 02/07/24 20:00 02/07/24 20:00 Temperature 98.3 F Pulse Rate 99 99 99 Respiratory Rate 23 H Blood Pressure 100/80 100/80 100/80 Pulse Oximetry 98 Oxygen Delivery Oxygen Flow Rate 02/07/24 20:00 02/07/24 22:00 02/07/24 22:00 Temperature Pulse Rate 99 102 H 100 Respiratory Rate Blood Pressure 100/80 101/80 108/80 Pulse Oximetry Oxygen Delivery Oxygen Flow Rate 02/07/24 22:00 02/07/24 22:00 02/07/24 22:47 Temperature 99.3 F Pulse Rate 102 H 102 H 106 H Respiratory Rate 24 H Blood Pressure 101/80 Pulse Oximetry 98 94 Oxygen Delivery Autopap Oxygen Flow Rate 02/08/24 00:00 02/08/24 00:00 02/08/24 00:00 Temperature 98.3 F Pulse Rate 106 H 90 90 Respiratory Rate 23 H 23 H Blood Pressure 95/74 L Pulse Oximetry 91 91 Oxygen Delivery Autopap Oxygen Flow Rate 02/08/24 00:00 02/08/24 02:00 02/08/24 02:00 Temperature Pulse Rate 91 92 89 Respiratory Rate 25 H Blood Pressure 95/74 L 98/70 L Pulse Oximetry 91 Oxygen Delivery Oxygen Flow Rate 02/08/24 02:00 02/08/24 02:00 02/08/24 02:00 Temperature Pulse Rate 81 81 84 Respiratory Rate Blood Pressure 98/70 L 98/70 L 98/70 L Pulse Oximetry Oxygen Delivery Oxygen Flow Rate 02/08/24 02:25 02/08/24 04:00 02/08/24 04:00 Temperature Pulse Rate 91 91 91 Respiratory Rate 24 H Blood Pressure Pulse Oximetry 93 91 Oxygen Delivery Autopap CPAP Oxygen Flow Rate 02/08/24 04:00 02/08/24 04:00 02/08/24 04:00 Temperature 97.9 F Pulse Rate 91 82 83 Respiratory Rate 24 H Blood Pressure 100/77 Pulse Oximetry 95 Oxygen Delivery Oxygen Flow Rate 02/08/24 06:00 02/08/24 06:00 02/08/24 06:00 Temperature 98.7 F Pulse Rate 80 98 87 Respiratory Rate 15 Blood Pressure 139/75 Pulse Oximetry 97 Oxygen Delivery Oxygen Flow Rate 02/08/24 06:00 Temperature Pulse Rate 86 Respiratory Rate Blood Pressure Pulse Oximetry Oxygen Delivery Oxygen Flow Rate Intake/Output Intake/Output: Intake & Output 02/05/24 02/06/24 02/07/24 02/08/24 23:59 23:59 23:59 23:59 Intake Total 3615.3 1516.1 2562.1 651.0 Output Total 50 2600 800 250 Balance 3565.3 -1083.9 1762.1 401.0 Meds/Results Medications: Active Medications Generic Name Dose Route Start Last Admin Trade Name Freq PRN Reason Stop Dose Admin Albuterol 1 puff 02/05/24 23:39 Albuterol Sulfate (*Sp) Aerosol 1 Puff INHALATION Q4HRT PRN shortness of breath or wheezing Anastrozole 1 mg 02/06/24 09:00 02/07/24 09:23 Anastrozole (*Chemo) 1 Mg Tablet PO 1 mg DAILY KEATON Administration Apixaban 5 mg 02/06/24 09:00 02/06/24 22:02 Apixaban 5 Mg Tablet PO 5 mg Q12HR KEATON Administration Aspirin 81 mg 02/07/24 09:55 02/07/24 10:48 Aspirin 81 Mg Enteric Tablet PO 81 mg QAM KEATON Administration Atorvastatin Calcium 80 mg 02/07/24 09:55 02/07/24 10:48 Atorvastatin 40 Mg Tablet PO 80 mg DAILY KEATON Administration Dextrose 12.5 gm 02/05/24 19:30 Dextrose 50% 25 Gm/50 Ml Syringe IV PUSH PRN PRN Hypoglycemia Protocol Glucagon 1 mg 02/05/24 19:30 Glucagon For Inj 1 Mg Vial IM PRN PRN Hypoglycemia Protocol Glucose 15 gm 02/05/24 19:30 Glucose Oral Gel 15 Gm Of Glucse In 37.5 Gm Tube PO PRN PRN Hypoglycemia Protocol Heparin Sodium (Porcine) 4,000 units 02/07/24 09:37 Heparin Sodium 5,000 Units/Ml Vial IV PUSH PRN PRN aPTT less than 55 seconds Heparin Sodium (Porcine) 3,000 units 02/07/24 09:37 Heparin Sodium 5,000 Units/Ml Vial IV PUSH PRN PRN aPTT 55 - 70 seconds Norepinephrine Bitartrate 8 mg in 250 mls @ 18.75 mls/hr 02/05/24 17:30 02/08/24 06:00 Levophed 8 Mg/D5w 250 Ml IV CONT 10 mcg/min .[id number] KEATON 18.75 mls/hr Administration Protocol 10 MCG/MIN Dextrose 1,000 mls @ 100 mls/hr 02/05/24 19:30 Dextrose 5% 1,000 Ml IVPB PRN PRN Hypoglycemia Protocol Metronidazole 500 mg in 100 mls @ 100 mls/hr 02/06/24 00:00 02/08/24 01:00 Flagyl 500 Mg/Iso Soln 100 Ml IVPB Infused Q8H KEATON Infusion Vancomycin HCl 1,250 mg in 250 mls @ 166.667 mls/hr 02/07/24 06:00 02/07/24 09:00 Vancomycin 1,250 Mg/Ns 250 Ml IVPB Infused Q36H KEATON Infusion Albumin Human 100 mls @ 60 mls/hr 02/06/24 12:00 02/08/24 07:00 Albutein IVPB 60 mls/hr Q6HR KEATON Administration Amiodarone HCl/Dextrose 360 mg in 200 mls @ 33.333 mls/hr 02/06/24 23:55 02/08/24 06:00 Nexterone 360 Mg/D5w 200 Ml IV CONT 1 mg/min .Q6H KEATON 33.33 mls/hr Infusion 1 MG/MIN Heparin Sodium/Dextrose 25,000 units in 250 mls @ 5 mls/hr 02/07/24 09:40 02/08/24 06:00 Heparin Sodium/D5w 100 Units/Ml IV CONT 500 units/hr .Q24H KEATON 5 mls/hr Titration Protocol 500 UNITS/HR Cefepime HCl 1 gm in 50 mls @ 100 mls/hr 02/07/24 10:25 02/07/24 21:40 Maxipime 1 Gm/Ns 50 Ml IVPB Infused Q12HR KEATON Infusion Potassium Chloride 100 mls @ 25 mls/hr 02/08/24 07:30 Kcl 40 Meq/Water 100 Ml IVPB 02/08/24 11:29 ONCE ONE Insulin Aspart 4 - 8 units 02/06/24 08:00 02/07/24 17:23 Insulin Aspart (*Bkc) 100 Units/Ml SUB-Q Not Given [facility] Protocol Levothyroxine Sodium 112 mcg 02/06/24 06:30 02/08/24 07:22 Levothyroxine Sodium 112 Mcg Tablet PO 112 mcg DAILY@0630 KAETON Administration Midodrine 10 mg 02/06/24 09:00 02/07/24 17:54 Midodrine Hcl 10 Mg Tablet PO 10 mg TID KEATON Administration Morphine Sulfate 2 mg 02/06/24 19:54 02/06/24 19:15 Morphine Sulfate (*Crx) 2 Mg/Ml Inj IV PUSH 2 mg Q6H PRN Administration Pain Rated 7-10 Pantoprazole Sodium 40 mg 02/05/24 19:35 02/07/24 09:15 Pantoprazole Sodium Iv 40 Mg Vial IV PUSH 40 mg QAM KEATON Administration Sodium Bicarbonate 650 mg 02/06/24 09:00 02/07/24 17:54 Sodium Bicarbonate Tab 650 Mg Tablet PO 650 mg BID KEATON Administration Sodium Chloride 10 ml 02/05/24 22:00 02/08/24 07:22 Central Line Flush IV PUSH 10 ml Q8HR KEATON Administration Sodium Chloride 20 ml 02/05/24 18:52 Central Line Flush IV PUSH PRN PRN after blood draws Radiology Results: ITS Impressions Abdomen/Pelvis CT 02/05/24 16:21 IMPRESSION: Mild cardiomegaly, coronary atherosclerosis Probable prior left thoracotomy Status post cholecystectomy Suggestion of decubitus ulcer and underlying inflammation capsularis and/or pulmonary edema of the medial right buttock Extensive degenerative changes of the thoracic and lumbar spine and the hips, especially the left hip ADDENDUM: 02/05/24 1804 Correction: IMPRESSIONS: Suggestion of decubitus ulcer and underlying inflammation/cellulitis and or subcutaneous edema of the medial right buttock Chest X-Ray 02/07/24 08:04 Impression: No acute consolidation or pleural effusion. Possible COPD or mild chronic interstitial change. Stable cardiomegaly. Stable Mediport. Labs Labs: Laboratory Results - last 24 hr 02/06/24 02/07/24 02/07/24 Unknown 03:40 12:31 WBC RBC Hgb Hct MCV MCH MCHC RDW Plt Count MPV Immature Gran % (Auto) Neut % (Auto) Lymph % (Auto) [place] % (Auto) Eos % (Auto) Baso % (Auto) Lymph # (Auto) [place] # (Auto) Eos # (Auto) Baso # (Auto) Abs Immat Gran (auto) Absolute Neuts (auto) Absolute Nucleated RBC Nucleated RBC % APTT Sodium 137 Potassium 4.0 Chloride 103 Carbon Dioxide 15 L Anion Gap 19 H BUN 26 H Creatinine 1.60 H Estim Creat Clear Calc 31 Estimated GFR 31 L Glucose 203 H POC Capillary Glucose 233 H Lactic Acid 1.7 Calcium 8.5 Phosphorus 2.1 L Magnesium 1.9 Total Bilirubin 0.5 Direct Bilirubin 0.0 AST 134 H ALT 38 H Alkaline Phosphatase 65 Troponin I 0.411 H* Total Protein 6.2 L Albumin 4.0 02/07/24 02/07/24 02/08/24 16:30 17:02 01:20 WBC RBC Hgb Hct MCV MCH MCHC RDW Plt Count MPV Immature Gran % (Auto) Neut % (Auto) Lymph % (Auto) [place] % (Auto) Eos % (Auto) Baso % (Auto) Lymph # (Auto) [place] # (Auto) Eos # (Auto) Baso # (Auto) Abs Immat Gran (auto) Absolute Neuts (auto) Absolute Nucleated RBC Nucleated RBC % APTT > 200.0 H* > 200.0 H* Sodium Potassium Chloride Carbon Dioxide Anion Gap BUN Creatinine Estim Creat Clear Calc Estimated GFR Glucose POC Capillary Glucose 171 H Lactic Acid Calcium Phosphorus Magnesium Total Bilirubin Direct Bilirubin AST ALT Alkaline Phosphatase Troponin I Total Protein Albumin 02/08/24 02/08/24 06:15 08:02 WBC 6.3 RBC 3.48 L Hgb 10.2 L Hct 31.0 L MCV 89.1 MCH 29.3 MCHC 32.9 RDW 14.7 H Plt Count 235 MPV 10.4 Immature Gran % (Auto) 0.8 H Neut % (Auto) 86.1 H Lymph % (Auto) 5.7 L [place] % (Auto) 6.7 Eos % (Auto) 0.5 Baso % (Auto) 0.2 Lymph # (Auto) 0.36 L [place] # (Auto) 0.4 Eos # (Auto) 0.0 Baso # (Auto) 0.0 Abs Immat Gran (auto) 0.05 H Absolute Neuts (auto) 5.4 Absolute Nucleated RBC 0.000 Nucleated RBC % 0.0 APTT Sodium 138 Potassium 3.1 L Chloride 101 Carbon Dioxide 24 Anion Gap 13 H BUN 18 H Creatinine 1.40 H Estim Creat Clear Calc 36 Estimated GFR 37 L Glucose 217 H POC Capillary Glucose 242 H Lactic Acid 1.7 Calcium 8.5 Phosphorus 1.7 L Magnesium 1.5 L Total Bilirubin 0.6 Direct Bilirubin AST 53 H ALT 25 Alkaline Phosphatase 56 Troponin I Total Protein 6.0 L Albumin 4.2 Quality VTE Prophylaxis VTE prophylaxis: mechanical ordered and pharmacologic ordered
[2024-02-08] MEDS: INSULIN ASPART (*BKC) 100 UNITS/ML SUB-Q ×2 (08:27→12:42)
[2024-02-08] MEDS: metroNIDAZOLE 500 MG/ISO 100ML 500 MG/100 ML BAG 100 MG IVPB ×2 (08:27)
[2024-02-08] MEDS: ANASTROZOLE (*CHEMO) 1 MG TABLET PO (08:28)
[2024-02-08] MEDS: MIDODRINE HCL 10 MG TABLET PO ×2 (08:28→14:51)
[2024-02-08] MEDS: PANTOPRAZOLE SODIUM IV 40 MG VIAL IV PUSH (08:28)
[2024-02-08] MEDS: SODIUM BICARBONATE TAB 650 MG TABLET PO (08:28)
[2024-02-08] MEDS: ATORVASTATIN 40 MG TABLET 80 MG PO (08:28)
[2024-02-08] MEDS: ASPIRIN 81 MG ENTERIC TABLET PO (08:28)
[2024-02-08] MEDS: MAGNESIUM SULF 2 GM/WATER 50ML 2 GM/50 ML BAG IVPB (08:49)
[2024-02-08 10:16] LABS: Partial Thromboplastin Time 58.5 Seconds (22.3-36.8)
[2024-02-08] MEDS: KCL 40 MEQ/WATER 100 ML 100 ML 25 ML IVPB ×2 (10:51→15:02)
--- NOTE | 2024-02-08 11:12 | PCFNICU ---
ICU Rounding Note: Pt current nutrition is NPO for possible cath. Nutrition recommendation: Diabetic consistent carb diet with Andre BID and Glucerna BID when diet is advanced. Last recorded weight is 94.9 kg. Bowel Motility: Last BM +1 02/06/24 Labs Reviewed: Hg b 10.2, Hct 31, K+ 3.1, GFR 37, BUN 18, Cre 1.4, Glu 242 Meds Noted: Heparin, Vit B, fish oil Skin: Stage3 pressure injury thigh, stage 2 pressure injury buttock Additional Notes: Pt is NPO today for possible cath. Intakes poor, refusing meals on consistent carbs. Advance diet as medically able Following daily in ICU rounds. Monitoring intakes, weights, labs, supplement tolerance, skin, plan of care Follow up in 5 days.
[2024-02-08 12:19] LABS: Glucose Point of Care 235 mg/dl (65-105)
[2024-02-08] MEDS: NOREPINEPHRINE 8 MG/D5W 250 ML 8 MG/250 ML BAG 16.88 MG IV CONT (12:50)
--- NOTE | 2024-02-08 13:17 | PC.NURSE ---
Patient to cath lab technologist per bed at 1310. Levophed and amiodarone infusing per pumps.
--- NOTE | 2024-02-08 14:12 | WPDMODSED ---
Moderate Sedation Note-Pt Data Patient Data Diagnosis: Cardiac arrest Cardiomyopathy NSTEMI Procedure to be performed/Plan: Left heart catheterization Coronary angiography Allergies Allergy/AdvReac Type Severity Reaction Status Date / Time amoxicillin Allergy Severe DIFFICULTY Verified 02/08/24 08:01 BREATHING/HIVES Iodinated Contrast Media Allergy Severe Anaphylaxis Verified 09/06/23 10:56 lisinopril Allergy Severe Swelling Verified 09/06/23 10:56 of Lip/Tongue/Throat methotrexate Allergy Severe Hives Verified 09/06/23 10:56 Penicillins Allergy Severe DIFFICULTY Verified 02/08/24 08:01 BREATHING/HIVES tetracycline Allergy Severe Hives Verified 09/06/23 10:56 metformin Allergy Unknown Jittery Verified 09/06/23 10:56 adhesive tape AdvReac Intermediate SKIN PEELS Verified 09/06/23 10:56 OFF codeine AdvReac Mild NAUSEA/VOMI Verified 09/06/23 10:56 TING furosemide AdvReac Unknown DOESN'T Verified 09/06/23 10:56 REMEMBER ioversol AdvReac Unknown DOESN'T Verified 09/06/23 10:56 REMEMBER Home Medications ?Medication ?Instructions ?Recorded ?Confirmed ?Type blood sugar diagnostic (Contour #100 ea 05/03/19 02/05/24 Rx Next Test Strips) blood sugar diagnostic (Blood #100 ea 12/25/19 02/05/24 Rx Glucose Test strips) lancets (Lancets, Super Thin) #100 ea 12/25/19 02/05/24 Rx cetirizine 10 mg tablet (Zyrtec) 10 mg PO DAILY #7 tabs 12/25/20 02/05/24 Rx ascorbate calcium (vitamin C) 500 500 mg PO DAILY 05/26/21 02/05/24 History mg tablet hydrocolloid dressing 4 X 4 #20 ea 12/15/21 02/05/24 Rx (DuoDERM CGF Adhesive Border Dressing) silicone,dressing-foam bandage 3 #10 ea 02/18/23 02/05/24 Rx X 3 albuterol sulfate 90 mcg/actuation 1 inh inhalation Q4H PRN shortness 05/10/23 02/05/24 Rx aerosol inhaler (ProAir HFA) of breath or wheezing #6.7 grams atorvastatin 10 mg tablet 10 mg PO DAILY 07/16/23 02/05/24 History blood-glucose meter (Accu-Chek #1 ea 08/03/23 02/05/24 Rx Guide Glucose Meter) indapamide 1.25 mg tablet 1.25 mg PO DAILY 08/16/23 02/05/24 History foam bandage 9.2 X 9.2 (Mepilex #5 ea 09/06/23 02/05/24 Rx Border Sacrum) empagliflozin 10 mg tablet 10 mg PO DAILY #30 tabs 10/23/23 02/05/24 Rx (Jardiance) metformin 1,000 mg tablet 1,000 mg PO BID #180 tabs 11/07/23 02/05/24 Rx potassium chloride 20 mEq 20 meq PO DAILY #30 tabs 12/16/23 02/05/24 Rx tablet,extended release sodium chloride 1,000 mg soluble 1,000 mg PO BID #60 tabs 12/16/23 02/05/24 Rx tablet apixaban 5 mg tablet (Eliquis) 5 mg PO Q12HR #60 tabs 01/03/24 02/05/24 Rx furosemide 20 mg tablet 20 mg PO BID #60 tabs 01/15/24 02/05/24 Rx VITAMIN D-3 1000UNIT TAB 1 cap PO DAILY 02/05/24 02/05/24 History anastrozole 1 mg tablet 1 mg PO DAILY 02/05/24 02/05/24 History cyanocobalamin (vitamin B-12) 1,000 mcg PO DAILY 02/05/24 02/05/24 History 1,000 mcg tablet (Vitamin B-12) donepezil 10 mg tablet 10 mg PO QPM 02/05/24 02/05/24 History ferrous sulfate 325 mg (65 mg 325 mg PO BID 02/05/24 02/05/24 History iron) tablet (FeroSul) levothyroxine 112 mcg tablet 112 mcg PO DAILY 02/05/24 02/05/24 History memantine 10 mg tablet 10 mg PO BID 02/05/24 02/05/24 History metoprolol succinate 100 mg 100 mg PO DAILY 02/05/24 02/05/24 History tablet,extended release 24 hr sertraline 100 mg tablet 200 mg PO DAILY 02/05/24 02/05/24 History spironolactone 25 mg tablet 12.5 mg PO DAILY 02/05/24 02/05/24 History Current Medications: Active Medications Albuterol (Albuterol Sulfate (*Sp) Aerosol 1 Puff) 1 puff INHALATION Q4HRT PRN PRN Reason: shortness of breath or wheezing Anastrozole (Anastrozole (*Chemo) 1 Mg Tablet) 1 mg PO DAILY [facility] Last Admin: 02/08/24 08:28 Dose: 1 mg Apixaban (Apixaban 5 Mg Tablet) 5 mg PO Q12HR [facility] Last Admin: 02/06/24 22:02 Dose: 5 mg Aspirin (Aspirin 81 Mg Enteric Tablet) 81 mg PO QAM [facility] Last Admin: 02/08/24 08:28 Dose: 81 mg Atorvastatin Calcium (Atorvastatin 40 Mg Tablet) 80 mg PO DAILY [facility] Last Admin: 02/08/24 08:28 Dose: 80 mg Dextrose (Dextrose 50% 25 Gm/50 Ml Syringe) 12.5 gm IV PUSH PRN PRN; Protocol PRN Reason: Hypoglycemia Glucagon (Glucagon For Inj 1 Mg Vial) 1 mg IM PRN PRN; Protocol PRN Reason: Hypoglycemia Glucose (Glucose Oral Gel 15 Gm Of Glucse In 37.5 Gm Tube) 15 gm PO PRN PRN; Protocol PRN Reason: Hypoglycemia Heparin Sodium (Porcine) (Heparin Sodium 5,000 Units/Ml Vial) 4,000 units IV PUSH PRN PRN PRN Reason: aPTT less than 55 seconds Heparin Sodium (Porcine) (Heparin Sodium 5,000 Units/Ml Vial) 3,000 units IV PUSH PRN PRN PRN Reason: aPTT 55 - 70 seconds Norepinephrine Bitartrate (Levophed 8 Mg/D5w 250 Ml) 8 mg in 250 mls @ 16.875 mls/hr IV CONT .[id number] [facility]; Protocol Last Admin: 02/08/24 12:50 Dose: 9 mcg/min, 16.88 mls/hr Dextrose (Dextrose 5% 1,000 Ml) 1,000 mls @ 100 mls/hr IVPB PRN PRN; Protocol PRN Reason: Hypoglycemia Vancomycin HCl (Vancomycin 1,250 Mg/Ns 250 Ml) 1,250 mg in 250 mls @ 166.667 mls/hr IVPB Q36H [facility] Last Infusion: 02/07/24 09:00 Dose: Infused Albumin Human (Albutein) 100 mls @ 60 mls/hr IVPB Q6HR [facility] Stop: 02/08/24 23:59 Last Infusion: 02/08/24 08:45 Dose: Infused Amiodarone HCl/Dextrose (Nexterone 360 Mg/D5w 200 Ml) 360 mg in 200 mls @ 33.333 mls/hr IV CONT .Q6H [facility] Last Admin: 02/08/24 08:25 Dose: 1 mg/min, 33.33 mls/hr Heparin Sodium/Dextrose (Heparin Sodium/D5w 100 Units/Ml) 25,000 units in 250 mls @ 6 mls/hr IV CONT .Q24H [facility]; Protocol Last Titration: 02/08/24 10:52 Dose: 600 units/hr, 6 mls/hr Potassium Chloride (Kcl 40 Meq/Water 100 Ml) 100 mls @ 25 mls/hr IVPB ONCE ONE Stop: 02/08/24 18:29 Insulin Aspart (Insulin Aspart (*Bkc) 100 Units/Ml) 4 - 8 units SUB-Q TIDWM [facility]; Protocol Last Admin: 02/08/24 12:42 Dose: 4 units Levothyroxine Sodium (Levothyroxine Sodium 112 Mcg Tablet) 112 mcg PO DAILY@0630 [facility] Last Admin: 02/08/24 07:22 Dose: 112 mcg Midodrine (Midodrine Hcl 10 Mg Tablet) 10 mg PO TID [facility] Last Admin: 02/08/24 08:28 Dose: 10 mg Pantoprazole Sodium (Pantoprazole Sodium Iv 40 Mg Vial) 40 mg IV PUSH QAM [facility] Last Admin: 02/08/24 08:28 Dose: 40 mg Sodium Bicarbonate (Sodium Bicarbonate Tab 650 Mg Tablet) 650 mg PO BID [facility] Last Admin: 02/08/24 08:28 Dose: 650 mg Sodium Chloride (Central Line Flush) 10 ml IV PUSH Q8HR [facility] Last Admin: 02/08/24 07:22 Dose: 10 ml Sodium Chloride (Central Line Flush) 20 ml IV PUSH PRN PRN PRN Reason: after blood draws Sedation/Anesthesia: No previous sedation/anesthesia problems (including family history). 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 Bullous pemphigoid On daily prednisone. 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 Neoadjuvant chemotherapy with TCH and Perjeta. status left breast mastectomy with sentinel lymph node biopsy on 07/31/2019. Obstructive sleep apnea on CPAP Pulmonary embolism Surgical History Surgical History H/O dilation and curettage H/O oophorectomy one ovary-unsure side History of cardiac catheterization History of total mastectomy of left breast (~07/2019) History of cystoscopy With lithotripsy and stent placement. History of cholecystectomy History of bilateral cataract extraction History of tubal ligation History of appendectomy History of hysterectomy Status post cataract extraction of both eyes with insertion of intraocular lens Hx of cholecystectomy History of partial mastectomy of left breast Approximately 2017 Family History Family History Father Acute myocardial infarction Father Cerebrovascular accident Acute myocardial infarction Tobacco abuse Mother Cerebrovascular accident Sibling No problems noted. Social History Social History Social History: The patient is never and has no children. 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 She is currently in assisted living at [facility], and has been there for a couple of months since she started chemotherapy. She also owns a home in [place], where she hopes to return. Her [id number], Sofia, is her surrogate decision maker. She wishes to be a full code. 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 Gender identity (if verbalized by the patient): Female Sexual Orientation (if Verbalized by the Patient): Straight or Heterosexual Spiritual care concerns: No Agree to blood products: Yes Mod Sed Physical Exam Physical Exam Pre Procedural Exam: Normal: Appearance, Eyes, Ears, Nose, Neck, Throat, Airway, Lungs, Heart Size, Heart Rate, Heart Rhythm, Neuro Exam, Abdomen, Liver, Kidneys, Spleen, Breasts, Genitalia, Extremities and Skin Hours since solid foods: 10 Hours since liquid intake: 10 Mallampati Classification: class II Internal Medicine - PN: Obj Da Vital Signs Vital Signs: Vital Signs - 24 hr 02/07/24 16:00 02/07/24 16:00 02/07/24 16:00 Temperature 37.0 C Pulse Rate 96 96 96 Respiratory Rate 29 H 29 H Blood Pressure 100/76 Pulse Oximetry 90 90 Oxygen Delivery Room Air Oxygen Flow Rate 02/07/24 16:00 02/07/24 18:00 02/07/24 18:00 Temperature 37.2 C Pulse Rate 92 79 79 Respiratory Rate 26 H Blood Pressure 100/71 104/74 Pulse Oximetry 95 Oxygen Delivery Oxygen Flow Rate 02/07/24 18:00 02/07/24 20:00 02/07/24 20:00 Temperature Pulse Rate 95 951 H 99 Respiratory Rate 25 H Blood Pressure 106/70 Pulse Oximetry 98 Oxygen Delivery Nasal Cannula Oxygen Flow Rate 3 02/07/24 20:00 02/07/24 20:00 02/07/24 20:00 Temperature 36.8 C Pulse Rate 99 99 99 Respiratory Rate 23 H Blood Pressure 100/80 100/80 100/80 Pulse Oximetry 98 Oxygen Delivery Oxygen Flow Rate 02/07/24 20:00 02/07/24 22:00 02/07/24 22:00 Temperature Pulse Rate 99 102 H 100 Respiratory Rate Blood Pressure 100/80 101/80 108/80 Pulse Oximetry Oxygen Delivery Oxygen Flow Rate 02/07/24 22:00 02/07/24 22:00 02/07/24 22:47 Temperature 37.4 C Pulse Rate 102 H 102 H 106 H Respiratory Rate 24 H Blood Pressure 101/80 Pulse Oximetry 98 94 Oxygen Delivery Autopap Oxygen Flow Rate 02/08/24 00:00 02/08/24 00:00 02/08/24 00:00 Temperature 36.8 C Pulse Rate 106 H 90 90 Respiratory Rate 23 H 23 H Blood Pressure 95/74 L Pulse Oximetry 91 91 Oxygen Delivery Autopap Oxygen Flow Rate 02/08/24 00:00 02/08/24 02:00 02/08/24 02:00 Temperature Pulse Rate 91 92 89 Respiratory Rate 25 H Blood Pressure 95/74 L 98/70 L Pulse Oximetry 91 Oxygen Delivery Oxygen Flow Rate 02/08/24 02:00 02/08/24 02:00 02/08/24 02:00 Temperature Pulse Rate 81 81 84 Respiratory Rate Blood Pressure 98/70 L 98/70 L 98/70 L Pulse Oximetry Oxygen Delivery Oxygen Flow Rate 02/08/24 02:25 02/08/24 04:00 02/08/24 04:00 Temperature Pulse Rate 91 91 91 Respiratory Rate 24 H Blood Pressure Pulse Oximetry 93 91 Oxygen Delivery Autopap CPAP Oxygen Flow Rate 02/08/24 04:00 02/08/24 04:00 02/08/24 04:00 Temperature 36.6 C Pulse Rate 91 82 83 Respiratory Rate 24 H Blood Pressure 100/77 Pulse Oximetry 95 Oxygen Delivery Oxygen Flow Rate 02/08/24 06:00 02/08/24 06:00 02/08/24 06:00 Temperature 37.1 C Pulse Rate 80 98 87 Respiratory Rate 15 Blood Pressure 139/75 Pulse Oximetry 97 Oxygen Delivery Oxygen Flow Rate 02/08/24 06:00 02/08/24 08:00 02/08/24 08:00 Temperature Pulse Rate 86 86 83 Respiratory Rate Blood Pressure 104/77 105/77 Pulse Oximetry Oxygen Delivery Oxygen Flow Rate 02/08/24 08:00 02/08/24 08:00 02/08/24 08:00 Temperature 36.8 C Pulse Rate 80 80 80 Respiratory Rate 27 H 27 H Blood Pressure 104/77 Pulse Oximetry 99 99 Oxygen Delivery Nasal Cannula Oxygen Flow Rate 3 02/08/24 08:25 02/08/24 10:00 02/08/24 10:00 Temperature Pulse Rate 86 86 80 Respiratory Rate Blood Pressure 104/77 89/69 L Pulse Oximetry Oxygen Delivery Oxygen Flow Rate 02/08/24 10:00 02/08/24 11:08 02/08/24 12:00 Temperature 37.1 C Pulse Rate 88 109 H Respiratory Rate 23 H 24 H Blood Pressure 89/69 L 98/78 L Pulse Oximetry 99 100 98 Oxygen Delivery Nasal Cannula Oxygen Flow Rate 3 02/08/24 12:00 02/08/24 12:00 02/08/24 12:50 Temperature Pulse Rate 109 H 109 H 100 Respiratory Rate 24 H Blood Pressure 98/78 L Pulse Oximetry 98 Oxygen Delivery Nasal Cannula Oxygen Flow Rate 3 02/08/24 12:50 Temperature Pulse Rate 100 Respiratory Rate Blood Pressure 98/78 L Pulse Oximetry Oxygen Delivery Oxygen Flow Rate Intake/Output Intake/Output: Intake & Output 02/05/24 02/06/24 02/07/24 02/08/24 23:59 23:59 23:59 23:59 Intake Total 3615.3 1516.1 2562.1 961.0 Output Total 50 2600 800 250 Balance 3565.3 -1083.9 1762.1 711.0 Meds/Results Medications: Active Medications Generic Name Dose Route Start Last Admin Trade Name Freq PRN Reason Stop Dose Admin Albuterol 1 puff 02/05/24 23:39 Albuterol Sulfate (*Sp) Aerosol 1 Puff INHALATION Q4HRT PRN shortness of breath or wheezing Anastrozole 1 mg 02/06/24 09:00 02/08/24 08:28 Anastrozole (*Chemo) 1 Mg Tablet PO 1 mg DAILY [facility] Administration Apixaban 5 mg 02/06/24 09:00 02/06/24 22:02 Apixaban 5 Mg Tablet PO 5 mg Q12HR [facility] Administration Aspirin 81 mg 02/07/24 09:55 02/08/24 08:28 Aspirin 81 Mg Enteric Tablet PO 81 mg QAM [facility] Administration Atorvastatin Calcium 80 mg 02/07/24 09:55 02/08/24 08:28 Atorvastatin 40 Mg Tablet PO 80 mg DAILY [facility] Administration Dextrose 12.5 gm 02/05/24 19:30 Dextrose 50% 25 Gm/50 Ml Syringe IV PUSH PRN PRN Hypoglycemia Protocol Glucagon 1 mg 02/05/24 19:30 Glucagon For Inj 1 Mg Vial IM PRN PRN Hypoglycemia Protocol Glucose 15 gm 02/05/24 19:30 Glucose Oral Gel 15 Gm Of Glucse In 37.5 Gm Tube PO PRN PRN Hypoglycemia Protocol Heparin Sodium (Porcine) 4,000 units 02/07/24 09:37 Heparin Sodium 5,000 Units/Ml Vial IV PUSH PRN PRN aPTT less than 55 seconds Heparin Sodium (Porcine) 3,000 units 02/07/24 09:37 Heparin Sodium 5,000 Units/Ml Vial IV PUSH PRN PRN aPTT 55 - 70 seconds Norepinephrine Bitartrate 8 mg in 250 mls @ 16.875 mls/hr 02/05/24 17:30 02/08/24 12:50 Levophed 8 Mg/D5w 250 Ml IV CONT 9 mcg/min .[id number] [facility] 16.88 mls/hr Administration Protocol 9 MCG/MIN Dextrose 1,000 mls @ 100 mls/hr 02/05/24 19:30 Dextrose 5% 1,000 Ml IVPB PRN PRN Hypoglycemia Protocol Vancomycin HCl 1,250 mg in 250 mls @ 166.667 mls/hr 02/07/24 06:00 02/07/24 09:00 Vancomycin 1,250 Mg/Ns 250 Ml IVPB Infused Q36H [facility] Infusion Albumin Human 100 mls @ 60 mls/hr 02/06/24 12:00 02/08/24 08:45 Albutein IVPB 02/08/24 23:59 Infused Q6HR [facility] Infusion Amiodarone HCl/Dextrose 360 mg in 200 mls @ 33.333 mls/hr 02/06/24 23:55 02/08/24 08:25 Nexterone 360 Mg/D5w 200 Ml IV CONT 1 mg/min .Q6H [facility] 33.33 mls/hr Administration 1 MG/MIN Heparin Sodium/Dextrose 25,000 units in 250 mls @ 6 mls/hr 02/07/24 09:40 02/08/24 10:52 Heparin Sodium/D5w 100 Units/Ml IV CONT 600 units/hr .Q24H [facility] 6 mls/hr Titration Protocol 600 UNITS/HR Potassium Chloride 100 mls @ 25 mls/hr 02/08/24 14:30 Kcl 40 Meq/Water 100 Ml IVPB 02/08/24 18:29 ONCE ONE Insulin Aspart 4 - 8 units 02/06/24 08:00 02/08/24 12:42 Insulin Aspart (*Bkc) 100 Units/Ml SUB-Q 4 units TIDWM [facility] Administration Protocol Levothyroxine Sodium 112 mcg 02/06/24 06:30 02/08/24 07:22 Levothyroxine Sodium 112 Mcg Tablet PO 112 mcg DAILY@0630 [facility] Administration Midodrine 10 mg 02/06/24 09:00 02/08/24 08:28 Midodrine Hcl 10 Mg Tablet PO 10 mg TID [facility] Administration Pantoprazole Sodium 40 mg 02/05/24 19:35 02/08/24 08:28 Pantoprazole Sodium Iv 40 Mg Vial IV PUSH 40 mg QAM [facility] Administration Sodium Bicarbonate 650 mg 02/06/24 09:00 02/08/24 08:28 Sodium Bicarbonate Tab 650 Mg Tablet PO 650 mg BID [facility] Administration Sodium Chloride 10 ml 02/05/24 22:00 02/08/24 07:22 Central Line Flush IV PUSH 10 ml Q8HR [facility] Administration Sodium Chloride 20 ml 02/05/24 18:52 Central Line Flush IV PUSH PRN PRN after blood draws Radiology Results: ITS Impressions Abdomen/Pelvis CT 02/05/24 16:21 IMPRESSION: Mild cardiomegaly, coronary atherosclerosis Probable prior left thoracotomy Status post cholecystectomy Suggestion of decubitus ulcer and underlying inflammation capsularis and/or pulmonary edema of the medial right buttock Extensive degenerative changes of the thoracic and lumbar spine and the hips, especially the left hip ADDENDUM: 02/05/24 1804 Correction: IMPRESSIONS: Suggestion of decubitus ulcer and underlying inflammation/cellulitis and or subcutaneous edema of the medial right buttock Chest X-Ray 02/07/24 08:04 Impression: No acute consolidation or pleural effusion. Possible COPD or mild chronic interstitial change. Stable cardiomegaly. Stable Mediport. Labs 02/08/24 06:15 02/08/24 06:15 Labs: Laboratory Results - last 24 hr 02/07/24 02/07/24 02/08/24 16:30 17:02 01:20 WBC RBC Hgb Hct MCV MCH MCHC RDW Plt Count MPV Immature Gran % (Auto) Neut % (Auto) Lymph % (Auto) [place] % (Auto) Eos % (Auto) Baso % (Auto) Lymph # (Auto) [place] # (Auto) Eos # (Auto) Baso # (Auto) Abs Immat Gran (auto) Absolute Neuts (auto) Absolute Nucleated RBC Nucleated RBC % APTT > 200.0 H* > 200.0 H* Sodium Potassium Chloride Carbon Dioxide Anion Gap BUN Creatinine Estim Creat Clear Calc Estimated GFR Glucose POC Capillary Glucose 171 H Lactic Acid Calcium Phosphorus Magnesium Total Bilirubin AST ALT Alkaline Phosphatase Total Protein Albumin 02/08/24 02/08/24 02/08/24 06:15 08:02 09:30 WBC 6.3 RBC 3.48 L Hgb 10.2 L Hct 31.0 L MCV 89.1 MCH 29.3 MCHC 32.9 RDW 14.7 H Plt Count 235 MPV 10.4 Immature Gran % (Auto) 0.8 H Neut % (Auto) 86.1 H Lymph % (Auto) 5.7 L [place] % (Auto) 6.7 Eos % (Auto) 0.5 Baso % (Auto) 0.2 Lymph # (Auto) 0.36 L [place] # (Auto) 0.4 Eos # (Auto) 0.0 Baso # (Auto) 0.0 Abs Immat Gran (auto) 0.05 H Absolute Neuts (auto) 5.4 Absolute Nucleated RBC 0.000 Nucleated RBC % 0.0 APTT 58.5 H Sodium 138 Potassium 3.1 L Chloride 101 Carbon Dioxide 24 Anion Gap 13 H BUN 18 H Creatinine 1.40 H Estim Creat Clear Calc 36 Estimated GFR 37 L Glucose 217 H POC Capillary Glucose 242 H Lactic Acid 1.7 Calcium 8.5 Phosphorus 1.7 L Magnesium 1.5 L Total Bilirubin 0.6 AST 53 H ALT 25 Alkaline Phosphatase 56 Total Protein 6.0 L Albumin 4.2 02/08/24 12:11 WBC RBC Hgb Hct MCV MCH MCHC RDW Plt Count MPV Immature Gran % (Auto) Neut % (Auto) Lymph % (Auto) [place] % (Auto) Eos % (Auto) Baso % (Auto) Lymph # (Auto) [place] # (Auto) Eos # (Auto) Baso # (Auto) Abs Immat Gran (auto) Absolute Neuts (auto) Absolute Nucleated RBC Nucleated RBC % APTT Sodium Potassium Chloride Carbon Dioxide Anion Gap BUN Creatinine Estim Creat Clear Calc Estimated GFR Glucose POC Capillary Glucose 235 H Lactic Acid Calcium Phosphorus Magnesium Total Bilirubin AST ALT Alkaline Phosphatase Total Protein Albumin ASA Classification/Sedation ASA Classification/Sedation ASA Class: III Emergent: No Risks: Risks, benefits and alternatives explained and patient/family accepted plan for sedation. Patient re-evaluated immediately prior to sedation.
--- NOTE | 2024-02-08 14:13 | WPDCARDPROC ---
Cardiac Cath Procedure Note Date of procedure:: 02/08/24 Performing physician:: Morena Rose MD Indication:: Cardiac arrest Cardiomyopathy NSTEMI Brief clinical history:: 74 year old female with paroxysmal atrial flutter, hypertension, hyperlipidemia, pulmonary embolism on Eliquis, breast cancer, hypothyroidism, CKD, diabetes. Echocardiogram in June 2023 showed LVEF 35-40%. During the course of this admission she had an episode of polymorphic VT a CPR was performed. Troponins have been mildly elevated but flat. Echo shows impaired LV systolic function Procedure Procedure performed:: 1. Right radial axis 2. Ultrasound-guided right femoral access 3. Left heart catheterization 4. Coronary angiography Sedation/Medication given:: 1 mg Versed 25 mcg fentanyl 50 mg Benadryl 40 mg Solu-Medrol Access site:: 1. Right radial access: Aborted 2. Right femoral access Estimated blood loss:: 5 cc Procedure note:: The patient was brought to the catheterization laboratory technician after discussion of risks, benefits, alternatives of left heart catheterization. She was premedicated for history of iodine allergy. Radial access was taking sheath was placed there was difficulty in navigating the loop at the elbow. We were able to navigate it with the WHOLEY wire. However, we were then able to navigate the the subclavian and the ascending aorta tortuosity and opted for a femoral approach. Right femoral artery was accessed under ultrasound and fluoroscopic guidance and the 5 [place] sheath was placed. Subsequently the left main and the RCA ostium was engaged 5 [place] JL 3.5 and JR4 catheters respectively. Multiple pictures were taken in different projections. The aortic valve was crossed and LVEDP was measured Findings:: Left main: And a large caliber vessel which divides into LAD and circumflex branches. No angiographic evidence of atherosclerotic disease Left anterior descending artery: Large caliber transapical vessel which has a 20% stenosis in its midportion. Rest of the vessel looks angiographically normal Left circumflex artery: Large caliber nondominant artery. No angiographic evidence of atherosclerotic disease Right coronary artery: Large caliber dominant vessel which divides into PDA and PLV branches. No angiographic evidence of atherosclerotic disease Conclusion:: 1. No significant obstructive CAD 2. Nonischemic cardiomyopathy 3. Elevated LVEDP Assessment and Plan Assessment and plan (1) Cardiomyopathy: Code(s): I42.9 - Cardiomyopathy, unspecified Status: Acute (2) Cardiac arrest: Code(s): I46.9 - Cardiac arrest, cause unspecified Status: Acute (3) Elevated troponin: Code(s): R79.89 - Other specified abnormal findings of blood chemistry Status: Acute Plan -transfer back to ICU -hemostasis to be achieved by manual pressure -will initiate guideline directed medical therapy after she becomes more stable and is off pressors -consider switching amiodarone to oral -high LVEDP will need diuresis -heparin can be restarted 5 hours after the procedure. No heparin bolus to be given. Can be switched to Eliquis if needed
[2024-02-08 14:16] LABS: Activated Clotting Time 205 SEC (74-137)
--- NOTE | 2024-02-08 15:46 | PC.NURSE ---
Back from field laborer to room ICU 2 per bed at 1440. Report received from field laborer nurses.
[2024-02-08 16:59] LABS: Partial Thromboplastin Time 122.7 Seconds (22.3-36.8)
[2024-02-08 17:41] LABS: Glucose Point of Care 198 mg/dl (65-105)
[2024-02-08 18:40] LABS: Partial Thromboplastin Time 49.6 Seconds (22.3-36.8)
[2024-02-08 19:59] LABS: Glucose Point of Care 227 mg/dl (65-105)
[2024-02-08] MEDS: VANCOMYCIN 1,250 MG/NS 250 ML 1,250 MG/250 ML BAG 166.67 MG IVPB (20:26)
[2024-02-08 21:15] LABS: Partial Thromboplastin Time 108.6 Seconds (22.3-36.8)
[2024-02-08 22:48] LABS: Alveolar/Arterial O2 Gradient 110.1 mmHg; Carboxyhemoglobin 0.3 % THb (0-2.0); Fractional Inspired Oxygen 32 %; HCO3 ABG 22.5 mEq/l (22.0-26.0); Methemoglobin ABG 0.3 %THb (0-1.5); Oxygen Content ABG 14.8 %vol (16.0-22.0); Oxyhemoglobin 94.1 % THb (90.0-100.0); PCO2 ABG 37.3 mmHg (35.0-45.0); PO2 ABG 74.4 mmHg (80.0-100.0); PO2 FiO2 Ratio Arterial Blood 2.33 %; Reduced Hemoglobin 5.3 %THb (0-5.0); Total Hemoglobin 11.1 g/dL (12.0-18.0); pH ABG 7.398 (7.350-7.450)
[2024-02-08 22:50] LABS: Device NASAL CANNULA; Modified Allen's Test Pass; Site Drawn LEFT RADIAL
[2024-02-08 22:59] LABS: Partial Thromboplastin Time 45.8 Seconds (22.3-36.8)
[2024-02-08] MEDS: MELATONIN 5 MG TABLET PO (23:25)
[2024-02-09] VITALS (41 sets, daily range): BP systolic 81–108; BP diastolic 57–84; PULSE 67–118; RESP 18–25; TEMP 36.7–37.3; O2SAT 93–100
[2024-02-09] MEDS: FUROSEMIDE INJ 40 MG/4 ML VIAL IV PUSH (00:17)
[2024-02-09 01:54] LABS: Partial Thromboplastin Time 51.5 Seconds (22.3-36.8)
[2024-02-09 03:06] LABS: Partial Thromboplastin Time 52.5 Seconds (22.3-36.8)
[2024-02-09] MEDS: NOREPINEPHRINE 8 MG/D5W 250 ML 8 MG/250 ML BAG 13.13 MG IV CONT (04:00)
[2024-02-09] MEDS: AMIODARONE 360 MG/D5W 200 ML 360 MG/200 ML BAG 33.33 MG IV CONT ×2 (04:00→08:34)
[2024-02-09] MEDS: ONDANSETRON INJ 4 MG/2 ML VIAL IV PUSH (04:15)
[2024-02-09 06:09] LABS: Basophils Percent Auto 0.1 % (0.2-1.2); Hematocrit 28.9 % (37.0-47.0); Hemoglobin 9.5 g/dL (12.0-15.0); Immature Granulocyte Absolute 0.08 K/mm3 (0.00-0.031); Immature Granulocyte Percent A 1.2 % (0-0.5); Lymphocytes Absolute Auto 0.55 K/mm3 (0.9-3.2); Mean Corpuscular HGB Conc 32.9 g/dl (32-36); Mean Corpuscular Hemoglobin 29.1 pg (26-34); Mean Corpuscular Volume 88.7 fl (80-100); Mean Platelet Volume 10.8 fl (7.4-10.4); Monocytes Absolute Auto 0.6 K/mm3 (0.1-0.6); Neutrophils Absolute Auto 5.6 K/mm3 (1.3-6.7); Neutrophils Percent Auto 81.7 % (45.5-73.1); Nucleated Red Blood Cells Perc 0.4 % (0.0-0.2); Platelet Count Result 240 k/mm3 (150-375); Red Blood Count 3.26 M/mm3 (4.2-5.4); Red Cell Distribution Width 14.8 % (11.5-14.5); White Blood Count 6.9 K/mm3 (4.5-10.0)
[2024-02-09 06:16] LABS: Lactic Acid Reflex 2.1 mmol/L (0.7-2.0)
[2024-02-09 06:19] LABS: Alanine Aminotransferase 31 U/L (6-35); Albumin Level 4.3 g/dL (3.5-5.1); Alkaline Phosphatase 59 U/L (38-126); Anion Gap 10 mmol/L (4-12); Aspartate Amino Transferase 76 U/L (14-36); Bilirubin,Total 0.5 mg/dL (0.2-1.3); Blood Urea Nitrogen 16 mg/dL (7-17); Calcium 9.1 mg/dL (8.4-10.2); Carbon Dioxide 28 mmol/L (22-30); Chloride 99 mmol/L (98-107); Estimated CRCL calculation 31 ml/min; Estimated Glomerular Filt Rate 31; Glucose 210 mg/dL (65-110); Magnesium 1.7 mg/dL (1.6-2.3); Phosphorus 1.4 mg/dL (2.5-4.5); Potassium 3.3 mmol/L (3.4-5.0); Sodium 137 mmol/L (137-145)
[2024-02-09 06:20] LABS: Partial Thromboplastin Time 54.1 Seconds (22.3-36.8)
[2024-02-09] MEDS: LEVOTHYROXINE SODIUM 112 MCG TABLET PO (07:00)
[2024-02-09 08:24] LABS: Glucose Point of Care 182 mg/dl (65-105)
[2024-02-09] MEDS: ATORVASTATIN 40 MG TABLET 80 MG PO (08:25)
[2024-02-09] MEDS: PANTOPRAZOLE SODIUM IV 40 MG VIAL IV PUSH (08:25)
[2024-02-09] MEDS: SODIUM BICARBONATE TAB 650 MG TABLET PO ×2 (08:26→16:38)
[2024-02-09] MEDS: ANASTROZOLE (*CHEMO) 1 MG TABLET PO (08:26)
[2024-02-09] MEDS: ASPIRIN 81 MG ENTERIC TABLET PO (08:26)
[2024-02-09] MEDS: MIDODRINE HCL 10 MG TABLET PO ×3 (08:26→16:38)
[2024-02-09] MEDS: CENTRAL LINE FLUSH 10 ML IV PUSH ×3 (08:27→22:05)
[2024-02-09] MEDS: MAGNESIUM SULF 2 GM/WATER 50ML 2 GM/50 ML BAG IVPB (08:33)
[2024-02-09] MEDS: KCL 40 MEQ/WATER 100 ML 100 ML 25 ML IVPB (08:33)
--- NOTE | 2024-02-09 08:34 | P.PNINT_ITS ---
Progress Note: A&P Assessment and Plan (1) Cardiac arrest: Code(s): I46.9 - Cardiac arrest, cause unspecified Status: Acute Assessment and Plan: Cardiac arrest V-tach/VFib, multiple episodes of V-tach. -continue amiodarone infusion at 1 mg/min -appreciate cardiology evaluation and recommendations -patient was premedicated for contrast allergy prior to cardiac catheterization -02/07: Coronary angiogram showed no significant obstructive coronary artery disease, nonischemic cardiomyopathy, elevated LVEDP. According the laboratory sampler, likely Takotsubo's cardiomyopathy -02/07/2024: Echocardiogram Summary 1. Left ventricular chamber dimension is moderately enlarged. 2. There is mildly increased left ventricular wall thickness. 3. Left ventricular systolic function is severely reduced, estimated at 20-25%. 4. Severe global hypokinesis with more pronounced hypokinesis of the anterolateral wall, anteroseptum. 5. Right ventricular systolic function is normal. 6. Left atrial chamber dimension is moderately enlarged. 7. There is mild aortic valve regurgitation. 8. There is mild to moderate mitral valve regurgitation. 9. There is small anterior pericardial effusion (2) Cardiomyopathy: Code(s): I42.9 - Cardiomyopathy, unspecified Status: Acute Assessment and Plan: Severe cardiomyopathy likely ischemic which could be the cause of recurrent VFib/V-tach -mild to moderate MVR -patient benefit from angiography given severe global hypokinesis of the anterolateral wall and anteroseptum -patient require GDMT for her cardiomyopathy, when she is off pressors (3) Shock: Code(s): R57.9 - Shock, unspecified Status: Acute Assessment and Plan: Patient presented with hypotension. Although she does have decubitus ulcer her WBC was normal and procalcitonin level is on the lower side Patient has decreased EF of 30-35% on last echo done in June 2023, hence it appears to be a multifactorial secondary to sepsis, hypovolemia, and cardiogenic -02/06: repeat echo as above shows EF of 20-25% Patient received adequate IV fluids, but unknown how long she was hypotensive. Continue Levophed to maintain mean arterial pressures > 65 mmHg at all times for adequate end organ perfusion -02/04: Blood cultures negative times -02/05: Wound culture growing MRSA -02/07: Discontinue cefepime and Flagyl continue cefepime, Flagyl, -continue vancomycin (02/05) -TSH within normal limits -random cortisol was within normal limits -continue midodrine (4) Decubitus ulcer: Qualifiers: Pressure injury location: buttock Pressure injury stage: stage 2 Laterality: right Qualified Code(s): L89.312 - Pressure ulcer of right buttock, stage 2 Code(s): L89.90 - Pressure ulcer of unspecified site, unspecified stage Status: Acute Assessment and Plan: Evaluated by wound care nurses. Continue local wound care. Wound cultures and antibiotics as above (5) Diabetes type 2, controlled: Qualifiers: Diabetes mellitus group home insulin use: without terminal clerk use Diabetes mellitus complication status: without complication Qualified Code(s): E11.9 - Type 2 diabetes mellitus without complications Code(s): E11.9 - Type 2 diabetes mellitus without complications Status: Acute Assessment and Plan: Consistent carbohydrate diet Sliding scale insulin (6) Electrolyte abnormality: Code(s): E87.8 - Other disorders of electrolyte and fluid balance, not elsewhere classified Status: Acute Assessment and Plan: Replace potassium, magnesium and phosphorus (7) Metabolic acidosis: Code(s): E87.20 - Acidosis, unspecified Status: Acute Assessment and Plan: Resolved Secondary to CRICKET. Due to hypotension and shock -off bicarb infusion (8) Acute kidney injury: Code(s): N17.9 - Acute kidney failure, unspecified Status: Acute Assessment and Plan: Presented with acute kidney injury and creatinine of 2.70 on admission CK level mildly elevated at 238 Likely secondary to hypotension and hypovolemia Will hold further IV fluids as patient has history of congestive heart failure Continue low-fat titration to maintain mean arterial pressure Monitor see urine output electrolytes and creatinine CT scan of the abdomen pelvis does not show any stone or hydronephrosis -urine output has been adequate a creatinine stable at 1.60 Plan DVT prophylaxis -will restart Eliquis Stress ulcer prophylaxis -Protonix Nutrition -heart healthy diet Code Status: Patient wishes to be Full Code Total Critical Care Time: 33 Minutes 02/07: Discussed with with patient's POA Judi Valiente and updated her with patient's condition and plan of care. POA stated she will be discussing with the patient regarding a cardiac catheterization. Later in the day I discussed with Dr. Valiente who is patient's primary care physician, I updated him regarding the cardiac cath report, echocardiogram report, he stated that she has been having more cognitive decline/dementia. He will be talking to the POA and patient's niece in [place] regarding code status given her significant cardiomyopathy. Due to a high probability of clinically significant, life threatening deterioration, the patient required my highest level of preparedness to intervene emergently and I personally spent this critical care time directly and personally managing the patient. This critical care time included obtaining a history; examining the patient; pulse oximetry; ordering and review of studies; arranging urgent treatment with development of a management plan; evaluation of patient's response to treatment; frequent reassessment; and discussions with other providers. It was exclusive of separately billable procedures and treating other patients and teaching time. Please see Assessment and Plan section and the rest of the note for further information on patient assessment and treatment This dictation may have been done utilizing a voice recognition system. Attempts have been made to correct errors. However, there may be uncorrected grammatical, spelling, and recognitions errors present. Subjective Date/time seen: 02/09/24 08:34 Interval history: Reason for consult: Shock, recurrent VFib, decubitus ulcer, acute kidney injury, metabolic acidosis, lactic acidosis 02/08/ Patient seen and examined in the ICU, is awake, alert. Denies any chest pain, sputum production has decreased, patient complains of SOB. Remains on levophed, adequate urine output. 02/07: Cardiac cath showed non ischemic cardiomyopathy, no significant obstructive coronary artery disease, elevated LVEDP. Patient had difficulty breathing last night, was given Lasix 40 mg IV x1 Review of Systems Review of Systems: All systems reviewed & are unremarkable except as noted in HPI and below Exam Narrative: General: Old and frail female, is alert awake and in mild respiratory distress, kyphosis Lungs/Chest: Bilateral coarse breath sounds, rales at bases, no wheezing. Cardiac: Currently in sinus rhythm, S1-S2 is normal Circulation: Feet are warm, palpable pedal pulses Abdomen: Normal bowel sounds.. Soft. NT. ND. Extremities: No clubbing, cyanosis, mild pitting edema : Aleman in place Neurologic: L. Awake, alert, oriented to place and person and date of , follows simple commands in all extremities, able to carry out a conversation Skin: No Rash patient has decubitus ulcer which was just examined and redressed by wound care nurses. Pictures reviewed in the chart Objective Data Vital Signs Vital Signs: Vital Signs - 24 hr 02/08/24 10:00 02/08/24 10:00 02/08/24 10:00 Temperature Pulse Rate 86 80 88 Pulse Rate [Bilateral Radial] Pulse Rate [Right Pedal (Dorsalis Pedis)] Respiratory Rate 23 H Blood Pressure 89/69 L 89/69 L Pulse Oximetry 99 Oxygen Delivery Oxygen Flow Rate 02/08/24 11:08 02/08/24 12:00 02/08/24 12:00 Temperature 98.7 F Pulse Rate 109 H 109 H Pulse Rate [Bilateral Radial] Pulse Rate [Right Pedal (Dorsalis Pedis)] Respiratory Rate 24 H 24 H Blood Pressure 98/78 L Pulse Oximetry 100 98 98 Oxygen Delivery Nasal Cannula Nasal Cannula Oxygen Flow Rate 3 3 02/08/24 12:00 02/08/24 12:50 02/08/24 12:50 Temperature Pulse Rate 109 H 100 100 Pulse Rate [Bilateral Radial] Pulse Rate [Right Pedal (Dorsalis Pedis)] Respiratory Rate Blood Pressure 98/78 L 98/78 L Pulse Oximetry Oxygen Delivery Oxygen Flow Rate 02/08/24 14:00 02/08/24 14:00 02/08/24 14:26 Temperature Pulse Rate 97 89 90 Pulse Rate [Bilateral Radial] Pulse Rate [Right Pedal (Dorsalis Pedis)] Respiratory Rate Blood Pressure 102/77 115/71 Pulse Oximetry Oxygen Delivery Oxygen Flow Rate 02/08/24 14:30 02/08/24 14:51 02/08/24 15:10 Temperature Pulse Rate 99 90 104 H Pulse Rate [Bilateral Radial] Pulse Rate [Right Pedal (Dorsalis Pedis)] Respiratory Rate 23 H 23 H Blood Pressure 115/71 115/71 112/80 Pulse Oximetry 98 97 Oxygen Delivery Oxygen Flow Rate 02/08/24 16:00 02/08/24 16:00 02/08/24 16:00 Temperature Pulse Rate 104 H 100 96 Pulse Rate [Bilateral Radial] Pulse Rate [Right Pedal (Dorsalis Pedis)] Respiratory Rate 23 H 24 H Blood Pressure 100/83 Pulse Oximetry 97 100 Oxygen Delivery Nasal Cannula Oxygen Flow Rate 3 02/08/24 16:35 02/08/24 16:50 02/08/24 17:00 Temperature Pulse Rate 97 102 H 92 Pulse Rate [Bilateral Radial] 97 102 H 92 Pulse Rate [Right Pedal (Dorsalis Pedis)] 97 102 H 92 Respiratory Rate 24 H Blood Pressure 88/71 L 97/80 L 97/80 L Pulse Oximetry Oxygen Delivery Oxygen Flow Rate 02/08/24 18:00 02/08/24 18:00 02/08/24 18:12 Temperature Pulse Rate 94 97 94 Pulse Rate [Bilateral Radial] 94 Pulse Rate [Right Pedal (Dorsalis Pedis)] 94 Respiratory Rate 24 H 22 H Blood Pressure 95/65 L 95/65 L Pulse Oximetry 97 97 Oxygen Delivery Oxygen Flow Rate 02/08/24 19:12 02/08/24 19:54 02/08/24 19:56 Temperature Pulse Rate 110 H 110 H Pulse Rate [Bilateral Radial] 94 Pulse Rate [Right Pedal (Dorsalis Pedis)] 94 Respiratory Rate 25 H Blood Pressure Pulse Oximetry 97 Oxygen Delivery Nasal Cannula Oxygen Flow Rate 3 02/08/24 20:00 02/08/24 20:00 02/08/24 20:00 Temperature 98.4 F Pulse Rate 101 H 105 H 103 H Pulse Rate [Bilateral Radial] Pulse Rate [Right Pedal (Dorsalis Pedis)] Respiratory Rate 26 H Blood Pressure 91/69 L 91/69 L 91/69 L Pulse Oximetry 96 Oxygen Delivery Oxygen Flow Rate 02/08/24 20:52 02/08/24 21:00 02/08/24 22:00 Temperature Pulse Rate 111 H 111 H 104 H Pulse Rate [Bilateral Radial] Pulse Rate [Right Pedal (Dorsalis Pedis)] Respiratory Rate Blood Pressure 97/72 L 97/72 L Pulse Oximetry Oxygen Delivery Oxygen Flow Rate 02/08/24 22:00 02/08/24 22:00 02/08/24 22:00 Temperature Pulse Rate 104 H 109 H 112 H Pulse Rate [Bilateral Radial] Pulse Rate [Right Pedal (Dorsalis Pedis)] Respiratory Rate 23 H Blood Pressure 103/77 103/77 103/77 Pulse Oximetry 93 Oxygen Delivery Oxygen Flow Rate 02/08/24 23:15 02/09/24 00:00 02/09/24 00:00 Temperature Pulse Rate 96 96 Pulse Rate [Bilateral Radial] Pulse Rate [Right Pedal (Dorsalis Pedis)] Respiratory Rate 23 H Blood Pressure Pulse Oximetry 97 96 Oxygen Delivery Autopap CPAP Oxygen Flow Rate 3 02/09/24 00:00 02/09/24 00:00 02/09/24 00:00 Temperature 98.6 F Pulse Rate 96 96 93 Pulse Rate [Bilateral Radial] Pulse Rate [Right Pedal (Dorsalis Pedis)] Respiratory Rate 23 H Blood Pressure 99/77 L 99/77 L 99/77 L Pulse Oximetry 97 Oxygen Delivery Oxygen Flow Rate 02/09/24 02:00 02/09/24 02:00 02/09/24 02:00 Temperature 98.4 F Pulse Rate 106 H 106 H 106 H Pulse Rate [Bilateral Radial] Pulse Rate [Right Pedal (Dorsalis Pedis)] Respiratory Rate 21 H Blood Pressure 88/72 L 88/72 L Pulse Oximetry 96 Oxygen Delivery Oxygen Flow Rate 02/09/24 03:01 02/09/24 03:51 02/09/24 04:00 Temperature Pulse Rate 115 H 115 H 115 H Pulse Rate [Bilateral Radial] Pulse Rate [Right Pedal (Dorsalis Pedis)] Respiratory Rate 25 H Blood Pressure 108/84 Pulse Oximetry 96 Oxygen Delivery CPAP Oxygen Flow Rate 3 02/09/24 04:00 02/09/24 04:00 02/09/24 04:00 Temperature 98.4 F Pulse Rate 118 H 115 H 115 H Pulse Rate [Bilateral Radial] Pulse Rate [Right Pedal (Dorsalis Pedis)] Respiratory Rate 25 H Blood Pressure 108/84 108/84 108/84 Pulse Oximetry 98 Oxygen Delivery Oxygen Flow Rate 02/09/24 04:00 02/09/24 06:00 02/09/24 06:00 Temperature 98.1 F Pulse Rate 115 H 91 91 Pulse Rate [Bilateral Radial] Pulse Rate [Right Pedal (Dorsalis Pedis)] Respiratory Rate 25 H Blood Pressure 108/84 85/57 L Pulse Oximetry 97 Oxygen Delivery Oxygen Flow Rate 02/09/24 06:00 Temperature Pulse Rate 91 Pulse Rate [Bilateral Radial] Pulse Rate [Right Pedal (Dorsalis Pedis)] Respiratory Rate Blood Pressure 85/57 L Pulse Oximetry Oxygen Delivery Oxygen Flow Rate Intake/Output Intake/Output: Intake & Output 02/06/24 02/07/24 02/08/24 02/09/24 23:59 23:59 23:59 23:59 Intake Total 1516.1 2562.1 1898.3 333.0 Output Total 2600 800 750 450 Balance -1083.9 1762.1 1148.3 -117.0 Meds/Results Medications: Active Medications Generic Name Dose Route Start Last Admin Trade Name Freq PRN Reason Stop Dose Admin Albuterol 1 puff 02/05/24 23:39 Albuterol Sulfate (*Sp) Aerosol 1 Puff INHALATION Q4HRT PRN shortness of breath or wheezing Anastrozole 1 mg 02/06/24 09:00 02/09/24 08:26 Anastrozole (*Chemo) 1 Mg Tablet PO 1 mg DAILY KEATON Administration Apixaban 5 mg 02/06/24 09:00 02/06/24 22:02 Apixaban 5 Mg Tablet PO 5 mg Q12HR KEATON Administration Aspirin 81 mg 02/07/24 09:55 02/09/24 08:26 Aspirin 81 Mg Enteric Tablet PO 81 mg QAM KEATON Administration Atorvastatin Calcium 80 mg 02/07/24 09:55 02/09/24 08:25 Atorvastatin 40 Mg Tablet PO 80 mg DAILY KEATON Administration Dextrose 12.5 gm 02/05/24 19:30 Dextrose 50% 25 Gm/50 Ml Syringe IV PUSH PRN PRN Hypoglycemia Protocol Glucagon 1 mg 02/05/24 19:30 Glucagon For Inj 1 Mg Vial IM PRN PRN Hypoglycemia Protocol Glucose 15 gm 02/05/24 19:30 Glucose Oral Gel 15 Gm Of Glucse In 37.5 Gm Tube PO PRN PRN Hypoglycemia Protocol Norepinephrine Bitartrate 8 mg in 250 mls @ 15 mls/hr 02/05/24 17:30 02/09/24 06:00 Levophed 8 Mg/D5w 250 Ml IV CONT 7 mcg/min .[id number] KEATON 13.13 mls/hr Titration Protocol 8 MCG/MIN Dextrose 1,000 mls @ 100 mls/hr 02/05/24 19:30 Dextrose 5% 1,000 Ml IVPB PRN PRN Hypoglycemia Protocol Amiodarone HCl/Dextrose 360 mg in 200 mls @ 33.333 mls/hr 02/06/24 23:55 02/09/24 04:00 Nexterone 360 Mg/D5w 200 Ml IV CONT 1 mg/min .Q6H KEATON 33.33 mls/hr Administration 1 MG/MIN Vancomycin HCl 1,250 mg in 250 mls @ 166.667 mls/hr 02/08/24 20:00 02/08/24 21:50 Vancomycin 1,250 Mg/Ns 250 Ml IVPB Infused Q24H KEATON Infusion Potassium Chloride 100 mls @ 25 mls/hr 02/09/24 07:46 Kcl 40 Meq/Water 100 Ml IVPB 02/09/24 11:45 ONCE ONE Potassium Phosphate 40 mmol/ 263.3333 mls @ 43.889 mls/hr 02/09/24 12:00 Sodium Chloride IVPB 02/09/24 17:59 ONCE ONE Magnesium Sulfate 2 gm in 50 mls @ 50 mls/hr 02/09/24 07:46 Magnesium Sulf 2 Gm/Water 50ml IVPB 02/09/24 08:45 ONCE ONE Insulin Aspart 4 - 8 units 02/06/24 08:00 02/09/24 08:26 Insulin Aspart (*Bkc) 100 Units/Ml SUB-Q Not Given TIDWM [facility] Protocol Levothyroxine Sodium 112 mcg 02/06/24 06:30 02/09/24 07:00 Levothyroxine Sodium 112 Mcg Tablet PO 112 mcg DAILY@0630 KEATON Administration Midodrine 10 mg 02/06/24 09:00 02/09/24 08:26 Midodrine Hcl 10 Mg Tablet PO 10 mg TID KEATON Administration Ondansetron HCl 4 mg 02/09/24 04:25 02/09/24 04:15 Ondansetron Inj 4 Mg/2 Ml Vial IV PUSH 4 mg Q6H PRN Administration Nausea And Vomiting Pantoprazole Sodium 40 mg 02/05/24 19:35 02/09/24 08:25 Pantoprazole Sodium Iv 40 Mg Vial IV PUSH 40 mg QAM KEATON Administration Sodium Bicarbonate 650 mg 02/06/24 09:00 02/09/24 08:26 Sodium Bicarbonate Tab 650 Mg Tablet PO 650 mg BID KEATON Administration Sodium Chloride 10 ml 02/05/24 22:00 02/09/24 08:27 Central Line Flush IV PUSH 10 ml Q8HR KEATON Administration Sodium Chloride 20 ml 02/05/24 18:52 Central Line Flush IV PUSH PRN PRN after blood draws Radiology Results: ITS Impressions Abdomen/Pelvis CT 02/05/24 16:21 IMPRESSION: Mild cardiomegaly, coronary atherosclerosis Probable prior left thoracotomy Status post cholecystectomy Suggestion of decubitus ulcer and underlying inflammation capsularis and/or pulmonary edema of the medial right buttock Extensive degenerative changes of the thoracic and lumbar spine and the hips, especially the left hip ADDENDUM: 02/05/24 3823 Correction: IMPRESSIONS: Suggestion of decubitus ulcer and underlying inflammation/cellulitis and or subcutaneous edema of the medial right buttock Chest X-Ray 02/09/24 06:46 Impression: Minimal pleural effusions. COPD. Possible superimposed mild pulmonary edema. Cardiomegaly and Mediport unchanged. Labs Labs: Laboratory Results - last 24 hr 02/08/24 02/08/24 02/08/24 09:30 12:11 14:11 WBC RBC Hgb Hct MCV MCH MCHC RDW Plt Count MPV Immature Gran % (Auto) Neut % (Auto) Lymph % (Auto) [place] % (Auto) Eos % (Auto) Baso % (Auto) Lymph # (Auto) [place] # (Auto) Eos # (Auto) Baso # (Auto) Abs Immat Gran (auto) Absolute Neuts (auto) Absolute Nucleated RBC Nucleated RBC % APTT 58.5 H Activ Coag Time Kaolin 205 H Puncture Site ABG pH ABG pCO2 ABG pO2 ABG PO2/FiO2 Ratio ABG HCO3 ABG O2 Saturation ABG O2 Content ABG Base Excess A-a Gradient Oxyhemoglobin Carboxyhemoglobin Methemoglobin Reduced Hemoglobin Total Hemoglobin O2 Delivery Device O2 Liters/Min FiO2 Sodium Potassium Chloride Carbon Dioxide Anion Gap BUN Creatinine Estim Creat Clear Calc Estimated GFR Glucose POC Capillary Glucose 235 H Lactic Acid Calcium Phosphorus Magnesium Total Bilirubin AST ALT Alkaline Phosphatase Total Protein Albumin Vancomycin Trough 02/08/24 02/08/24 02/08/24 16:34 17:36 18:15 WBC RBC Hgb Hct MCV MCH MCHC RDW Plt Count MPV Immature Gran % (Auto) Neut % (Auto) Lymph % (Auto) [place] % (Auto) Eos % (Auto) Baso % (Auto) Lymph # (Auto) [place] # (Auto) Eos # (Auto) Baso # (Auto) Abs Immat Gran (auto) Absolute Neuts (auto) Absolute Nucleated RBC Nucleated RBC % APTT 122.7 H 49.6 H Activ Coag Time Kaolin Puncture Site ABG pH ABG pCO2 ABG pO2 ABG PO2/FiO2 Ratio ABG HCO3 ABG O2 Saturation ABG O2 Content ABG Base Excess A-a Gradient Oxyhemoglobin Carboxyhemoglobin Methemoglobin Reduced Hemoglobin Total Hemoglobin O2 Delivery Device O2 Liters/Min FiO2 Sodium Potassium Chloride Carbon Dioxide Anion Gap BUN Creatinine Estim Creat Clear Calc Estimated GFR Glucose POC Capillary Glucose 198 H Lactic Acid Calcium Phosphorus Magnesium Total Bilirubin AST ALT Alkaline Phosphatase Total Protein Albumin Vancomycin Trough 12.0 02/08/24 02/08/24 02/08/24 19:56 20:49 22:39 WBC RBC Hgb Hct MCV MCH MCHC RDW Plt Count MPV Immature Gran % (Auto) Neut % (Auto) Lymph % (Auto) [place] % (Auto) Eos % (Auto) Baso % (Auto) Lymph # (Auto) [place] # (Auto) Eos # (Auto) Baso # (Auto) Abs Immat Gran (auto) Absolute Neuts (auto) Absolute Nucleated RBC Nucleated RBC % APTT 108.6 H 45.8 H Activ Coag Time Kaolin Puncture Site Left radial ABG pH 7.398 ABG pCO2 37.3 ABG pO2 74.4 L ABG PO2/FiO2 Ratio 2.33 ABG HCO3 22.5 ABG O2 Saturation 95.0 ABG O2 Content 14.8 L ABG Base Excess -2.0 A-a Gradient 110.1 Oxyhemoglobin 94.1 Carboxyhemoglobin 0.3 Methemoglobin 0.3 Reduced Hemoglobin 5.3 H Total Hemoglobin 11.1 L O2 Delivery Device Nasal cannula O2 Liters/Min 3.0 FiO2 32 Sodium Potassium Chloride Carbon Dioxide Anion Gap BUN Creatinine Estim Creat Clear Calc Estimated GFR Glucose POC Capillary Glucose 227 H Lactic Acid Calcium Phosphorus Magnesium Total Bilirubin AST ALT Alkaline Phosphatase Total Protein Albumin Vancomycin Trough 02/09/24 02/09/24 02/09/24 01:29 02:32 05:43 WBC 6.9 RBC 3.26 L Hgb 9.5 L Hct 28.9 L MCV 88.7 MCH 29.1 MCHC 32.9 RDW 14.8 H Plt Count 240 MPV 10.8 H Immature Gran % (Auto) 1.2 H Neut % (Auto) 81.7 H Lymph % (Auto) 8.0 L [place] % (Auto) 9.0 H Eos % (Auto) 0.0 Baso % (Auto) 0.1 L Lymph # (Auto) 0.55 L [place] # (Auto) 0.6 Eos # (Auto) 0.0 Baso # (Auto) 0.0 Abs Immat Gran (auto) 0.08 H Absolute Neuts (auto) 5.6 Absolute Nucleated RBC 0.030 H Nucleated RBC % 0.4 H APTT 51.5 H 52.5 H Activ Coag Time Kaolin Puncture Site ABG pH ABG pCO2 ABG pO2 ABG PO2/FiO2 Ratio ABG HCO3 ABG O2 Saturation ABG O2 Content ABG Base Excess A-a Gradient Oxyhemoglobin Carboxyhemoglobin Methemoglobin Reduced Hemoglobin Total Hemoglobin O2 Delivery Device O2 Liters/Min FiO2 Sodium 137 Potassium 3.3 L Chloride 99 Carbon Dioxide 28 Anion Gap 10 BUN 16 Creatinine 1.60 H Estim Creat Clear Calc 31 Estimated GFR 31 L Glucose 210 H POC Capillary Glucose Lactic Acid 2.1 H Calcium 9.1 Phosphorus 1.4 L Magnesium 1.7 Total Bilirubin 0.5 AST 76 H ALT 31 Alkaline Phosphatase 59 Total Protein 6.0 L Albumin 4.3 Vancomycin Trough 02/09/24 02/09/24 05:46 08:02 WBC RBC Hgb Hct MCV MCH MCHC RDW Plt Count MPV Immature Gran % (Auto) Neut % (Auto) Lymph % (Auto) [place] % (Auto) Eos % (Auto) Baso % (Auto) Lymph # (Auto) [place] # (Auto) Eos # (Auto) Baso # (Auto) Abs Immat Gran (auto) Absolute Neuts (auto) Absolute Nucleated RBC Nucleated RBC % APTT 54.1 H Activ Coag Time Kaolin Puncture Site ABG pH ABG pCO2 ABG pO2 ABG PO2/FiO2 Ratio ABG HCO3 ABG O2 Saturation ABG O2 Content ABG Base Excess A-a Gradient Oxyhemoglobin Carboxyhemoglobin Methemoglobin Reduced Hemoglobin Total Hemoglobin O2 Delivery Device O2 Liters/Min FiO2 Sodium Potassium Chloride Carbon Dioxide Anion Gap BUN Creatinine Estim Creat Clear Calc Estimated GFR Glucose POC Capillary Glucose 182 H Lactic Acid Calcium Phosphorus Magnesium Total Bilirubin AST ALT Alkaline Phosphatase Total Protein Albumin Vancomycin Trough Quality VTE Prophylaxis VTE prophylaxis: mechanical ordered and pharmacologic ordered
[2024-02-09 09:02] LABS: Reflex Lactic Acid Yes or No Add Lactic
[2024-02-09 09:35] LABS: Lactic Acid 1.7 mmol/L (0.7-2.0)
[2024-02-09 09:39] LABS: Partial Thromboplastin Time 47.8 Seconds (22.3-36.8)
[2024-02-09 11:20] LABS: Glucose Point of Care 157 mg/dl (65-105)
--- NOTE | 2024-02-09 11:26 | P.PNCA_ITS ---
Progress Note: A&P Assessment and Plan (1) Cardiomyopathy: Code(s): I42.9 - Cardiomyopathy, unspecified Status: Acute (2) Cardiac arrest: Code(s): I46.9 - Cardiac arrest, cause unspecified Status: Acute (3) Elevated troponin: Code(s): R79.89 - Other specified abnormal findings of blood chemistry Status: Acute Plan 1. Sepsis/Septic Shock 2. VT/VF Arrest 3. Acute on chronic systolic HF NYHA III, Stage C EF 20-25% 4. Non ischemic Cardiomyopathy 5. Hyperlipidemia 6. Aflutter - Wean off inotropes as per ICU - Will initiate GDMT for HF if BP allows - Lasix as needed by ICU for diuresis based on her MAP - Transition to oral amiodarone - Transition to oral anticoagulation if no more procedures planned - Consider life vest on discharge prior to placement of a secondary prevention ICD Subjective Date/time seen: 02/09/24 11:26 Interval history: S/p LHC yesterday Feels slightly better Off inotropes now, soft BP Received 40 mg IV lasix in the ICU yesterday Review of Systems Review of Systems: All systems reviewed & are unremarkable except as noted in HPI and below (HPI) Exam Const: General: no acute distress Other: Elderly female that appears older than stated age. HENMT: Mouth: Yes dry mucous membranes Eyes: General: appearance normal, both eyes and all related structures Sclera: sclerae normal Resp: Effort & Inspection: normal respiratory effort Auscultation: clear to auscultation bilaterally Cardio: Rate: regular rate Rhythm: regular rhythm Heart sounds: no murmurs Skin: General skin exam: normal color Neuro: Speech: normal speech Psych: Mental Status: mental status grossly normal Affect: normal affect Objective Data Vital Signs Vital Signs: Vital Signs - 24 hr 02/08/24 12:00 02/08/24 12:00 02/08/24 12:00 Temperature 37.1 C Pulse Rate 109 H 109 H 109 H Pulse Rate [Bilateral Radial] Pulse Rate [Right Pedal (Dorsalis Pedis)] Respiratory Rate 24 H 24 H Blood Pressure 98/78 L Pulse Oximetry 98 98 Oxygen Delivery Nasal Cannula Oxygen Flow Rate 3 02/08/24 12:50 02/08/24 12:50 02/08/24 14:00 Temperature Pulse Rate 100 100 97 Pulse Rate [Bilateral Radial] Pulse Rate [Right Pedal (Dorsalis Pedis)] Respiratory Rate Blood Pressure 98/78 L 98/78 L Pulse Oximetry Oxygen Delivery Oxygen Flow Rate 02/08/24 14:00 02/08/24 14:26 02/08/24 14:30 Temperature Pulse Rate 89 90 99 Pulse Rate [Bilateral Radial] Pulse Rate [Right Pedal (Dorsalis Pedis)] Respiratory Rate 23 H Blood Pressure 102/77 115/71 115/71 Pulse Oximetry 98 Oxygen Delivery Oxygen Flow Rate 02/08/24 14:51 02/08/24 15:10 02/08/24 16:00 Temperature Pulse Rate 90 104 H 104 H Pulse Rate [Bilateral Radial] Pulse Rate [Right Pedal (Dorsalis Pedis)] Respiratory Rate 23 H 23 H Blood Pressure 115/71 112/80 Pulse Oximetry 97 97 Oxygen Delivery Nasal Cannula Oxygen Flow Rate 3 02/08/24 16:00 02/08/24 16:00 02/08/24 16:35 Temperature Pulse Rate 100 96 97 Pulse Rate [Bilateral Radial] 97 Pulse Rate [Right Pedal (Dorsalis Pedis)] 97 Respiratory Rate 24 H Blood Pressure 100/83 88/71 L Pulse Oximetry 100 Oxygen Delivery Oxygen Flow Rate 02/08/24 16:50 02/08/24 17:00 02/08/24 18:00 Temperature Pulse Rate 102 H 92 94 Pulse Rate [Bilateral Radial] 102 H 92 Pulse Rate [Right Pedal (Dorsalis Pedis)] 102 H 92 Respiratory Rate 24 H 24 H Blood Pressure 97/80 L 97/80 L 95/65 L Pulse Oximetry 97 Oxygen Delivery Oxygen Flow Rate 02/08/24 18:00 02/08/24 18:12 02/08/24 19:12 Temperature Pulse Rate 97 94 Pulse Rate [Bilateral Radial] 94 94 Pulse Rate [Right Pedal (Dorsalis Pedis)] 94 94 Respiratory Rate 22 H Blood Pressure 95/65 L Pulse Oximetry 97 Oxygen Delivery Oxygen Flow Rate 02/08/24 19:54 02/08/24 19:56 02/08/24 20:00 Temperature 36.9 C Pulse Rate 110 H 110 H 101 H Pulse Rate [Bilateral Radial] Pulse Rate [Right Pedal (Dorsalis Pedis)] Respiratory Rate 25 H 26 H Blood Pressure 91/69 L Pulse Oximetry 97 96 Oxygen Delivery Nasal Cannula Oxygen Flow Rate 3 02/08/24 20:00 02/08/24 20:00 02/08/24 20:52 Temperature Pulse Rate 105 H 103 H 111 H Pulse Rate [Bilateral Radial] Pulse Rate [Right Pedal (Dorsalis Pedis)] Respiratory Rate Blood Pressure 91/69 L 91/69 L 97/72 L Pulse Oximetry Oxygen Delivery Oxygen Flow Rate 02/08/24 21:00 02/08/24 22:00 02/08/24 22:00 Temperature Pulse Rate 111 H 104 H 104 H Pulse Rate [Bilateral Radial] Pulse Rate [Right Pedal (Dorsalis Pedis)] Respiratory Rate 23 H Blood Pressure 97/72 L 103/77 Pulse Oximetry 93 Oxygen Delivery Oxygen Flow Rate 02/08/24 22:00 02/08/24 22:00 02/08/24 23:15 Temperature Pulse Rate 109 H 112 H Pulse Rate [Bilateral Radial] Pulse Rate [Right Pedal (Dorsalis Pedis)] Respiratory Rate Blood Pressure 103/77 103/77 Pulse Oximetry 97 Oxygen Delivery Autopap Oxygen Flow Rate 02/09/24 00:00 02/09/24 00:00 02/09/24 00:00 Temperature 37.0 C Pulse Rate 96 96 96 Pulse Rate [Bilateral Radial] Pulse Rate [Right Pedal (Dorsalis Pedis)] Respiratory Rate 23 H 23 H Blood Pressure 99/77 L Pulse Oximetry 96 97 Oxygen Delivery CPAP Oxygen Flow Rate 3 02/09/24 00:00 02/09/24 00:00 02/09/24 02:00 Temperature 36.9 C Pulse Rate 96 93 106 H Pulse Rate [Bilateral Radial] Pulse Rate [Right Pedal (Dorsalis Pedis)] Respiratory Rate 21 H Blood Pressure 99/77 L 99/77 L 88/72 L Pulse Oximetry 96 Oxygen Delivery Oxygen Flow Rate 02/09/24 02:00 02/09/24 02:00 02/09/24 03:01 Temperature Pulse Rate 106 H 106 H 115 H Pulse Rate [Bilateral Radial] Pulse Rate [Right Pedal (Dorsalis Pedis)] Respiratory Rate Blood Pressure 88/72 L 108/84 Pulse Oximetry Oxygen Delivery Oxygen Flow Rate 02/09/24 03:51 02/09/24 04:00 02/09/24 04:00 Temperature 36.9 C Pulse Rate 115 H 115 H 118 H Pulse Rate [Bilateral Radial] Pulse Rate [Right Pedal (Dorsalis Pedis)] Respiratory Rate 25 H 25 H Blood Pressure 108/84 Pulse Oximetry 96 98 Oxygen Delivery CPAP Oxygen Flow Rate 3 02/09/24 04:00 02/09/24 04:00 02/09/24 04:00 Temperature Pulse Rate 115 H 115 H 115 H Pulse Rate [Bilateral Radial] Pulse Rate [Right Pedal (Dorsalis Pedis)] Respiratory Rate Blood Pressure 108/84 108/84 108/84 Pulse Oximetry Oxygen Delivery Oxygen Flow Rate 02/09/24 06:00 02/09/24 06:00 02/09/24 06:00 Temperature 36.7 C Pulse Rate 91 91 91 Pulse Rate [Bilateral Radial] Pulse Rate [Right Pedal (Dorsalis Pedis)] Respiratory Rate 25 H Blood Pressure 85/57 L 85/57 L Pulse Oximetry 97 Oxygen Delivery Oxygen Flow Rate 02/09/24 08:00 02/09/24 08:00 02/09/24 08:00 Temperature 37.0 C Pulse Rate 92 92 92 Pulse Rate [Bilateral Radial] Pulse Rate [Right Pedal (Dorsalis Pedis)] Respiratory Rate 24 H 24 H Blood Pressure 98/71 L 98/71 L Pulse Oximetry 98 98 Oxygen Delivery Oxygen Flow Rate 02/09/24 08:34 02/09/24 08:34 02/09/24 08:53 Temperature Pulse Rate 88 88 Pulse Rate [Bilateral Radial] Pulse Rate [Right Pedal (Dorsalis Pedis)] Respiratory Rate Blood Pressure 100/74 100/74 Pulse Oximetry 100 Oxygen Delivery Nasal Cannula Oxygen Flow Rate 3 02/09/24 10:00 02/09/24 10:00 02/09/24 10:00 Temperature 37.0 C Pulse Rate 90 90 90 Pulse Rate [Bilateral Radial] Pulse Rate [Right Pedal (Dorsalis Pedis)] Respiratory Rate 23 H 23 H Blood Pressure 91/67 L 91/67 L Pulse Oximetry 98 98 Oxygen Delivery Oxygen Flow Rate Intake/Output Intake/Output: Intake & Output 02/06/24 02/07/24 02/08/24 02/09/24 23:59 23:59 23:59 23:59 Intake Total 1516.1 2562.1 1898.3 735.2 Output Total 2600 800 750 450 Balance -1083.9 1762.1 1148.3 285.2 Meds/Results Medications: Active Medications Generic Name Dose Route Start Last Admin Trade Name Freq PRN Reason Stop Dose Admin Albuterol 1 puff 02/05/24 23:39 Albuterol Sulfate (*Sp) Aerosol 1 Puff INHALATION Q4HRT PRN shortness of breath or wheezing Amiodarone HCl 200 mg 02/10/24 08:00 Amiodarone Hcl 200 Mg Tablet PO DAILY@0800 KEATON Anastrozole 1 mg 02/06/24 09:00 02/09/24 08:26 Anastrozole (*Chemo) 1 Mg Tablet PO 1 mg DAILY KEATON Administration Apixaban 5 mg 02/09/24 09:15 Apixaban 5 Mg Tablet PO Q12HR KEATON Aspirin 81 mg 02/07/24 09:55 02/09/24 08:26 Aspirin 81 Mg Enteric Tablet PO 81 mg QAM KEATON Administration Atorvastatin Calcium 80 mg 02/07/24 09:55 02/09/24 08:25 Atorvastatin 40 Mg Tablet PO 80 mg DAILY KEATON Administration Dextrose 12.5 gm 02/05/24 19:30 Dextrose 50% 25 Gm/50 Ml Syringe IV PUSH PRN PRN Hypoglycemia Protocol Glucagon 1 mg 02/05/24 19:30 Glucagon For Inj 1 Mg Vial IM PRN PRN Hypoglycemia Protocol Glucose 15 gm 02/05/24 19:30 Glucose Oral Gel 15 Gm Of Glucse In 37.5 Gm Tube PO PRN PRN Hypoglycemia Protocol Norepinephrine Bitartrate 8 mg in 250 mls @ 15 mls/hr 02/05/24 17:30 02/09/24 06:00 Levophed 8 Mg/D5w 250 Ml IV CONT 7 mcg/min .[id number] KEATON 13.13 mls/hr Titration Protocol 8 MCG/MIN Dextrose 1,000 mls @ 100 mls/hr 02/05/24 19:30 Dextrose 5% 1,000 Ml IVPB PRN PRN Hypoglycemia Protocol Vancomycin HCl 1,250 mg in 250 mls @ 166.667 mls/hr 02/08/24 20:00 02/08/24 21:50 Vancomycin 1,250 Mg/Ns 250 Ml IVPB Infused Q24H KEATON Infusion Potassium Chloride 100 mls @ 25 mls/hr 02/09/24 07:46 02/09/24 08:33 Kcl 40 Meq/Water 100 Ml IVPB 02/09/24 11:45 25 mls/hr ONCE ONE Administration Potassium Phosphate 40 mmol/ 263.3333 mls @ 43.889 mls/hr 02/09/24 12:00 Sodium Chloride IVPB 02/09/24 17:59 ONCE ONE Insulin Aspart 4 - 8 units 02/06/24 08:00 02/09/24 11:21 Insulin Aspart (*Bkc) 100 Units/Ml SUB-Q Not Given TIDWM [facility] Protocol Levothyroxine Sodium 112 mcg 02/06/24 06:30 02/09/24 07:00 Levothyroxine Sodium 112 Mcg Tablet PO 112 mcg DAILY@0630 KEATON Administration Midodrine 10 mg 02/06/24 09:00 02/09/24 08:26 Midodrine Hcl 10 Mg Tablet PO 10 mg TID KEATON Administration Ondansetron HCl 4 mg 02/09/24 04:25 02/09/24 04:15 Ondansetron Inj 4 Mg/2 Ml Vial IV PUSH 4 mg Q6H PRN Administration Nausea And Vomiting Pantoprazole Sodium 40 mg 02/05/24 19:35 02/09/24 08:25 Pantoprazole Sodium Iv 40 Mg Vial IV PUSH 40 mg QAM [place] Administration Sodium Bicarbonate 650 mg 02/06/24 09:00 02/09/24 08:26 Sodium Bicarbonate Tab 650 Mg Tablet PO 650 mg BID KE[place]ON Administration Sodium Chloride 10 ml 02/05/24 22:00 02/09/24 08:27 Central Line Flush IV PUSH 10 ml Q8HR [place] Administration Sodium Chloride 20 ml 02/05/24 18:52 Central Line Flush IV PUSH PRN PRN after blood draws Radiology Results: ITS Impressions Abdomen/Pelvis CT 02/05/24 16:21 IMPRESSION: Mild cardiomegaly, coronary atherosclerosis Probable prior left thoracotomy Status post cholecystectomy Suggestion of decubitus ulcer and underlying inflammation capsularis and/or pulmonary edema of the medial right buttock Extensive degenerative changes of the thoracic and lumbar spine and the hips, especially the left hip ADDENDUM: 02/05/24 1804 Correction: IMPRESSIONS: Suggestion of decubitus ulcer and underlying inflammation/cellulitis and or subcutaneous edema of the medial right buttock Chest X-Ray 02/09/24 06:46 Impression: Minimal pleural effusions. COPD. Possible superimposed mild pulmonary edema. Cardiomegaly and Mediport unchanged. Labs Labs: Laboratory Results - last 24 hr 02/08/24 02/08/24 02/08/24 12:11 14:11 16:34 WBC RBC Hgb Hct MCV MCH MCHC RDW Plt Count MPV Immature Gran % (Auto) Neut % (Auto) Lymph % (Auto) [place] % (Auto) Eos % (Auto) Baso % (Auto) Lymph # (Auto) [place] # (Auto) Eos # (Auto) Baso # (Auto) Abs Immat Gran (auto) Absolute Neuts (auto) Absolute Nucleated RBC Nucleated RBC % APTT 122.7 H Activ Coag Time Kaolin 205 H Puncture Site ABG pH ABG pCO2 ABG pO2 ABG PO2/FiO2 Ratio ABG HCO3 ABG O2 Saturation ABG O2 Content ABG Base Excess A-a Gradient Oxyhemoglobin Carboxyhemoglobin Methemoglobin Reduced Hemoglobin Total Hemoglobin O2 Delivery Device O2 Liters/Min FiO2 Sodium Potassium Chloride Carbon Dioxide Anion Gap BUN Creatinine Estim Creat Clear Calc Estimated GFR Glucose POC Capillary Glucose 235 H Lactic Acid Calcium Phosphorus Magnesium Total Bilirubin AST ALT Alkaline Phosphatase Total Protein Albumin Vancomycin Trough 12.0 02/08/24 02/08/24 02/08/24 17:36 18:15 19:56 WBC RBC Hgb Hct MCV MCH MCHC RDW Plt Count MPV Immature Gran % (Auto) Neut % (Auto) Lymph % (Auto) [place] % (Auto) Eos % (Auto) Baso % (Auto) Lymph # (Auto) [place] # (Auto) Eos # (Auto) Baso # (Auto) Abs Immat Gran (auto) Absolute Neuts (auto) Absolute Nucleated RBC Nucleated RBC % APTT 49.6 H Activ Coag Time Kaolin Puncture Site ABG pH ABG pCO2 ABG pO2 ABG PO2/FiO2 Ratio ABG HCO3 ABG O2 Saturation ABG O2 Content ABG Base Excess A-a Gradient Oxyhemoglobin Carboxyhemoglobin Methemoglobin Reduced Hemoglobin Total Hemoglobin O2 Delivery Device O2 Liters/Min FiO2 Sodium Potassium Chloride Carbon Dioxide Anion Gap BUN Creatinine Estim Creat Clear Calc Estimated GFR Glucose POC Capillary Glucose 198 H 227 H Lactic Acid Calcium Phosphorus Magnesium Total Bilirubin AST ALT Alkaline Phosphatase Total Protein Albumin Vancomycin Trough 02/08/24 02/08/24 02/09/24 20:49 22:39 01:29 WBC RBC Hgb Hct MCV MCH MCHC RDW Plt Count MPV Immature Gran % (Auto) Neut % (Auto) Lymph % (Auto) [place] % (Auto) Eos % (Auto) Baso % (Auto) Lymph # (Auto) [place] # (Auto) Eos # (Auto) Baso # (Auto) Abs Immat Gran (auto) Absolute Neuts (auto) Absolute Nucleated RBC Nucleated RBC % APTT 108.6 H 45.8 H 51.5 H Activ Coag Time Kaolin Puncture Site Left radial ABG pH 7.398 ABG pCO2 37.3 ABG pO2 74.4 L ABG PO2/FiO2 Ratio 2.33 ABG HCO3 22.5 ABG O2 Saturation 95.0 ABG O2 Content 14.8 L ABG Base Excess -2.0 A-a Gradient 110.1 Oxyhemoglobin 94.1 Carboxyhemoglobin 0.3 Methemoglobin 0.3 Reduced Hemoglobin 5.3 H Total Hemoglobin 11.1 L O2 Delivery Device Nasal cannula O2 Liters/Min 3.0 FiO2 32 Sodium Potassium Chloride Carbon Dioxide Anion Gap BUN Creatinine Estim Creat Clear Calc Estimated GFR Glucose POC Capillary Glucose Lactic Acid Calcium Phosphorus Magnesium Total Bilirubin AST ALT Alkaline Phosphatase Total Protein Albumin Vancomycin Trough 02/09/24 02/09/24 02/09/24 02:32 05:43 05:46 WBC 6.9 RBC 3.26 L Hgb 9.5 L Hct 28.9 L MCV 88.7 MCH 29.1 MCHC 32.9 RDW 14.8 H Plt Count 240 MPV 10.8 H Immature Gran % (Auto) 1.2 H Neut % (Auto) 81.7 H Lymph % (Auto) 8.0 L [place] % (Auto) 9.0 H Eos % (Auto) 0.0 Baso % (Auto) 0.1 L Lymph # (Auto) 0.55 L [place] # (Auto) 0.6 Eos # (Auto) 0.0 Baso # (Auto) 0.0 Abs Immat Gran (auto) 0.08 H Absolute Neuts (auto) 5.6 Absolute Nucleated RBC 0.030 H Nucleated RBC % 0.4 H APTT 52.5 H 54.1 H Activ Coag Time Kaolin Puncture Site ABG pH ABG pCO2 ABG pO2 ABG PO2/FiO2 Ratio ABG HCO3 ABG O2 Saturation ABG O2 Content ABG Base Excess A-a Gradient Oxyhemoglobin Carboxyhemoglobin Methemoglobin Reduced Hemoglobin Total Hemoglobin O2 Delivery Device O2 Liters/Min FiO2 Sodium 137 Potassium 3.3 L Chloride 99 Carbon Dioxide 28 Anion Gap 10 BUN 16 Creatinine 1.60 H Estim Creat Clear Calc 31 Estimated GFR 31 L Glucose 210 H POC Capillary Glucose Lactic Acid 2.1 H Calcium 9.1 Phosphorus 1.4 L Magnesium 1.7 Total Bilirubin 0.5 AST 76 H ALT 31 Alkaline Phosphatase 59 Total Protein 6.0 L Albumin 4.3 Vancomycin Trough 02/09/24 02/09/24 02/09/24 08:02 09:14 11:18 WBC RBC Hgb Hct MCV MCH MCHC RDW Plt Count MPV Immature Gran % (Auto) Neut % (Auto) Lymph % (Auto) [place] % (Auto) Eos % (Auto) Baso % (Auto) Lymph # (Auto) [place] # (Auto) Eos # (Auto) Baso # (Auto) Abs Immat Gran (auto) Absolute Neuts (auto) Absolute Nucleated RBC Nucleated RBC % APTT 47.8 H Activ Coag Time Kaolin Puncture Site ABG pH ABG pCO2 ABG pO2 ABG PO2/FiO2 Ratio ABG HCO3 ABG O2 Saturation ABG O2 Content ABG Base Excess A-a Gradient Oxyhemoglobin Carboxyhemoglobin Methemoglobin Reduced Hemoglobin Total Hemoglobin O2 Delivery Device O2 Liters/Min FiO2 Sodium Potassium Chloride Carbon Dioxide Anion Gap BUN Creatinine Estim Creat Clear Calc Estimated GFR Glucose POC Capillary Glucose 182 H 157 H Lactic Acid 1.7 Calcium Phosphorus Magnesium Total Bilirubin AST ALT Alkaline Phosphatase Total Protein Albumin Vancomycin Trough
--- NOTE | 2024-02-09 11:31 | PCFNICU ---
ICU Rounding Note: Pt current nutrition is Heart Healthy with Glucerna shakes BID and Andre BID. Last recorded weight is 94.9 kg, stable Bowel Motility: +BM reported 02/08 Labs Reviewed: Glu 210, Cr 1.6, GFR 31, K 3.3, Hct 28.9, Hgb 29.5 Meds Noted:Heparin, Protonix, Lipitor, Metformin. Skin: stage III-thigh, stage II-buttock. Additional Notes: Patient remains on a heart healthy diet with diet supplements of Glucerna shakes BID and Andre BID. Confused. PO intake encouraged. Agree with diet orders at this time. Following daily in ICU rounds. Monitoring intakes, weights, labs, supplement tolerance, skin, plan of care Follow up in 3 days.
[2024-02-09] MEDS: POTASSIUM PHOS,M-BASIC-D-BASIC 40 MMOL in SODIUM CHLORIDE 0.9% IV 250 ML 43.89 MMOL IVPB (12:13)
[2024-02-09] MEDS: AMIODARONE HCL 200 MG TABLET PO (13:32)
[2024-02-09 16:44] LABS: Glucose Point of Care 126 mg/dl (65-105)
[2024-02-09] MEDS: APIXABAN 5 MG TABLET PO (21:10)
[2024-02-09] MEDS: VANCOMYCIN 1,250 MG/NS 250 ML 1,250 MG/250 ML BAG 166.67 MG IVPB (21:10)
[2024-02-10] VITALS (15 sets, daily range): BP systolic 82–117; BP diastolic 58–74; PULSE 57–82; RESP 16–23; TEMP 36.3–37.2; O2SAT 93–100
[2024-02-10 06:41] LABS: Basophils Percent Auto 0.4 % (0.2-1.2); Eosinophils Absolute Auto 0.1 K/mm3 (0-0.3); Eosinophils Percent Auto 2.7 % (0-4.4); Hematocrit 29.2 % (37.0-47.0); Hemoglobin 9.5 g/dL (12.0-15.0); Immature Granulocyte Absolute 0.08 K/mm3 (0.00-0.031); Immature Granulocyte Percent A 1.6 % (0-0.5); Lymphocytes Absolute Auto 0.79 K/mm3 (0.9-3.2); Lymphocytes Percent Auto 16.3 % (18.3-44.2); Mean Corpuscular HGB Conc 32.5 g/dl (32-36); Mean Corpuscular Hemoglobin 29.5 pg (26-34); Mean Corpuscular Volume 90.7 fl (80-100); Mean Platelet Volume 10.7 fl (7.4-10.4); Monocytes Absolute Auto 0.4 K/mm3 (0.1-0.6); Monocytes Percent Auto 7.6 % (2.6-8.5); Neutrophils Absolute Auto 3.5 K/mm3 (1.3-6.7); Neutrophils Percent Auto 71.4 % (45.5-73.1); Nucleated Red Blood Cells Perc 0.4 % (0.0-0.2); Platelet Count Result 214 k/mm3 (150-375); Red Blood Count 3.22 M/mm3 (4.2-5.4); Red Cell Distribution Width 15.2 % (11.5-14.5); White Blood Count 4.9 K/mm3 (4.5-10.0)
[2024-02-10 06:52] LABS: Alanine Aminotransferase 26 U/L (6-35); Albumin Level 3.6 g/dL (3.5-5.1); Alkaline Phosphatase 54 U/L (38-126); Anion Gap 6 mmol/L (4-12); Aspartate Amino Transferase 41 U/L (14-36); Bilirubin,Total 0.4 mg/dL (0.2-1.3); Blood Urea Nitrogen 19 mg/dL (7-17); Calcium 8.9 mg/dL (8.4-10.2); Carbon Dioxide 30 mmol/L (22-30); Chloride 103 mmol/L (98-107); Estimated CRCL calculation 31 ml/min; Estimated Glomerular Filt Rate 31; Glucose 114 mg/dL (65-110); Potassium 3.7 mmol/L (3.4-5.0); Sodium 139 mmol/L (137-145)
[2024-02-10] MEDS: CENTRAL LINE FLUSH 10 ML IV PUSH ×3 (07:15→21:18)
[2024-02-10] MEDS: LEVOTHYROXINE SODIUM 112 MCG TABLET PO (07:15)
[2024-02-10 07:35] LABS: Glucose Point of Care 115 mg/dl (65-105)
[2024-02-10] MEDS: ALBUMIN HUMAN 25% 25 GM/100 ML 100 ML IVPB ×2 (08:10→21:18)
[2024-02-10] MEDS: MIDODRINE HCL 10 MG TABLET PO ×3 (08:13→18:00)
[2024-02-10] MEDS: AMIODARONE HCL 200 MG TABLET PO (08:14)
[2024-02-10] MEDS: ANASTROZOLE (*CHEMO) 1 MG TABLET PO (08:14)
[2024-02-10] MEDS: PANTOPRAZOLE SODIUM IV 40 MG VIAL IV PUSH (08:14)
[2024-02-10] MEDS: SODIUM BICARBONATE TAB 650 MG TABLET PO ×2 (08:14→18:00)
[2024-02-10] MEDS: ATORVASTATIN 40 MG TABLET 80 MG PO (08:14)
[2024-02-10] MEDS: ASPIRIN 81 MG ENTERIC TABLET PO (08:14)
[2024-02-10] MEDS: APIXABAN 5 MG TABLET PO ×2 (08:14→21:18)
--- NOTE | 2024-02-10 12:01 | PCNFU ---
Nutrition Follow-Up Complete: Increased protein energy needs related to wound healing as evidenced by pressure injuries Goal: Adequate intakes at least 75% meals and supplements to support wound healing Patient has limited progress. Will continue current goal. Pt current nutrition is Heart Healthy. Last recorded weight is 94.9 kg, no new weight to report. Bowel Motility: +BM reported 02/08 Labs Reviewed: Glu 114, BUN 19, GFR 31, Hct 29..2, Hgb 9.5 Meds Noted: Metformin, Protonix, Lipitor, Albumin Skin:Stage 3-thigh, Stage II-buttock. Additional Notes: Patient remains on a heart healthy diet. Intake poor. Diet supplements changing to Nutritional Ice Cream TID for additional 300 kcal and 9 gm protein. Andre BID continues for wound healing. Agree with diet orders. Monitoring intakes, weights, labs, supplement tolerance, skin, plan of care Follow up in 5 days
--- NOTE | 2024-02-10 12:02 | P.PNINT_ITS ---
Progress Note: A&P Assessment and Plan (1) Cardiac arrest: Code(s): I46.9 - Cardiac arrest, cause unspecified Status: Acute Assessment and Plan: Cardiac arrest V-tach/VFib, multiple episodes of V-tach. -patient has been switched to p.o. amiodarone and patient on p.o. apixaban -cardiology following -patient was premedicated for contrast allergy prior to cardiac catheterization -02/07: Coronary angiogram showed no significant obstructive coronary artery disease, nonischemic cardiomyopathy, elevated LVEDP. According the community service technician, likely Takotsubo's cardiomyopathy -02/07/2024: Echocardiogram Summary 1. Left ventricular chamber dimension is moderately enlarged. 2. There is mildly increased left ventricular wall thickness. 3. Left ventricular systolic function is severely reduced, estimated at 20-25%. 4. Severe global hypokinesis with more pronounced hypokinesis of the anterolateral wall, anteroseptum. 5. Right ventricular systolic function is normal. 6. Left atrial chamber dimension is moderately enlarged. 7. There is mild aortic valve regurgitation. 8. There is mild to moderate mitral valve regurgitation. 9. There is small anterior pericardial effusion (2) Cardiomyopathy: Code(s): I42.9 - Cardiomyopathy, unspecified Status: Acute Assessment and Plan: Severe cardiomyopathy likely ischemic which could be the cause of recurrent VFib/V-tach -mild to moderate MVR -patient benefit from angiography given severe global hypokinesis of the anterolateral wall and anteroseptum -patient require GDMT for her cardiomyopathy, when she is off pressors and blood pressures tolerate -will try a small dose of spironolactone, to decrease afterload (3) Shock: Code(s): R57.9 - Shock, unspecified Status: Acute Assessment and Plan: Patient presented with hypotension. Although she does have decubitus ulcer her WBC was normal and procalcitonin level is on the lower side Patient has decreased EF of 30-35% on last echo done in June 2023, hence it appears to be a multifactorial secondary to sepsis, hypovolemia, and cardiogenic -02/06: repeat echo as above shows EF of 20-25% Patient received adequate IV fluids, but unknown how long she was hypotensive. Off Levophed -02/04: Blood cultures negative x2 -02/05: Wound culture growing MRSA -02/07: Discontinue cefepime and Flagyl continue cefepime, Flagyl, -continue vancomycin (02/05) -TSH within normal limits -random cortisol was within normal limits -continue midodrine (4) Decubitus ulcer: Qualifiers: Laterality: right Pressure injury location: buttock Pressure injury stage: stage 2 Qualified Code(s): L89.312 - Pressure ulcer of right buttock, stage 2 Code(s): L89.90 - Pressure ulcer of unspecified site, unspecified stage Status: Acute Assessment and Plan: Evaluated by wound care nurses. Continue local wound care. Wound cultures and antibiotics as above (5) Diabetes type 2, controlled: Qualifiers: Diabetes mellitus complication status: without complication Diabetes mellitus halfway insulin use: without long term care social worker use Qualified Code(s): E11.9 - Type 2 diabetes mellitus without complications Code(s): E11.9 - Type 2 diabetes mellitus without complications Status: Acute Assessment and Plan: Consistent carbohydrate diet Sliding scale insulin (6) Electrolyte abnormality: Code(s): E87.8 - Other disorders of electrolyte and fluid balance, not elsewhere classified Status: Acute Assessment and Plan: Replace potassium, magnesium and phosphorus (7) Metabolic acidosis: Code(s): E87.20 - Acidosis, unspecified Status: Acute Assessment and Plan: Resolved Secondary to CRICKET. Due to hypotension and shock -off bicarb infusion (8) Acute kidney injury: Code(s): N17.9 - Acute kidney failure, unspecified Status: Acute Assessment and Plan: Presented with acute kidney injury and creatinine of 2.70 on admission CK level mildly elevated at 238 Likely secondary to hypotension and hypovolemia Will hold further IV fluids as patient has history of congestive heart failure Continue low-fat titration to maintain mean arterial pressure Monitor see urine output electrolytes and creatinine CT scan of the abdomen pelvis does not show any stone or hydronephrosis -urine output has been adequate a creatinine stable at 1.60 Plan DVT prophylaxis -continue Eliquis Stress ulcer prophylaxis -Protonix Nutrition -heart healthy diet Code Status: Patient wishes to be Full Code Total Critical Care Time: 32 Minutes Discussed with community service technician 02/07: Discussed with with patient's POA Judi Valiente and updated her with patient's condition and plan of care. POA stated she will be discussing with the patient regarding a cardiac catheterization. Later in the day I discussed with Dr. Valiente who is patient's primary care physician, I updated him regarding the cardiac cath report, echocardiogram report, he stated that she has been having more cognitive decline/dementia. He will be talking to the POA and patient's niece in [place] regarding code status given her significant cardiomyopathy. Due to a high probability of clinically significant, life threatening deterioration, the patient required my highest level of preparedness to intervene emergently and I personally spent this critical care time directly and personally managing the patient. This critical care time included obtaining a history; examining the patient; pulse oximetry; ordering and review of studies; arranging urgent treatment with development of a management plan; evaluation of patient's response to treatment; frequent reassessment; and discussions with other providers. It was exclusive of separately billable procedures and treating other patients and teaching time. Please see Assessment and Plan section and the rest of the note for further information on patient assessment and treatment This dictation may have been done utilizing a voice recognition system. Attempts have been made to correct errors. However, there may be uncorrected grammatical, spelling, and recognitions errors present. Subjective Date/time seen: 02/10/24 12:02 Interval history: Reason for consult: Shock, recurrent VFib/V-tach, decubitus ulcer, acute kidney injury, metabolic acidosis, lactic acidosis 02/07: Cardiac cath showed non ischemic cardiomyopathy, no significant obstructive coronary artery disease, elevated LVEDP. Patient had difficulty breathing last night, was given Lasix 40 mg IV x1 02/27/2024: Patient seen and examined the ICU, remains awake, alert, answers to questions appropriately and follows simple commands. Appetite has slightly improved. Blood pressures remain borderline but MAPs have been adequate. Urine output has been adequate, afebrile. Denies any shortness of breath, chest pain abdominal pain, nausea or vomiting Review of Systems Review of Systems: All systems reviewed & are unremarkable except as noted in HPI and below Exam Narrative: General: Old and frail female, is alert awake in no acute distress, kyphosis Lungs/Chest: Bilateral coarse breath sounds, rales at bases, no wheezing. Cardiac: Currently in sinus rhythm, S1-S2 is normal Circulation: Feet are warm, palpable pedal pulses Abdomen: Normal bowel sounds. Soft. Nontender, nondistended Extremities: No clubbing, cyanosis, mild pitting edema : Aleman in place Neurologic: Awake, alert, oriented to place and person and date of , follows simple commands in all extremities, able to carry out a conversation Skin: No Rash patient has decubitus ulcer Objective Data Vital Signs Vital Signs: Vital Signs - 24 hr 02/09/24 12:20 02/09/24 12:23 02/09/24 12:30 Temperature Pulse Rate 86 86 89 Respiratory Rate 22 H 22 H 21 H Blood Pressure 82/62 L 83/62 L 86/63 L Pulse Oximetry 100 100 98 Oxygen Delivery Oxygen Flow Rate 02/09/24 12:35 02/09/24 12:40 02/09/24 12:45 Temperature Pulse Rate 84 85 89 Respiratory Rate 24 H 23 H 21 H Blood Pressure 84/63 L 86/64 L 85/66 L Pulse Oximetry 99 96 98 Oxygen Delivery Oxygen Flow Rate 02/09/24 12:50 02/09/24 13:05 02/09/24 13:20 Temperature Pulse Rate 91 87 85 Respiratory Rate 19 22 H 20 Blood Pressure 88/64 L 87/62 L 92/66 L Pulse Oximetry 96 96 97 Oxygen Delivery Oxygen Flow Rate 02/09/24 13:32 02/09/24 13:35 02/09/24 13:50 Temperature Pulse Rate 84 86 85 Respiratory Rate 22 H 20 Blood Pressure 85/67 L 86/66 L Pulse Oximetry 96 99 Oxygen Delivery Oxygen Flow Rate 02/09/24 14:00 02/09/24 14:00 02/09/24 14:00 Temperature 98.6 F Pulse Rate 85 85 85 Respiratory Rate 20 Blood Pressure 86/66 L 86/66 L Pulse Oximetry 99 Oxygen Delivery Oxygen Flow Rate 02/09/24 14:20 02/09/24 14:50 02/09/24 15:50 Temperature 98.8 F Pulse Rate 92 91 91 Respiratory Rate 20 20 20 Blood Pressure 90/71 L 86/67 L 86/65 L Pulse Oximetry 99 97 97 Oxygen Delivery Oxygen Flow Rate 02/09/24 16:00 02/09/24 16:00 02/09/24 16:00 Temperature 98.8 F Pulse Rate 87 89 Respiratory Rate 20 Blood Pressure 90/69 L Pulse Oximetry 98 98 Oxygen Delivery Nasal Cannula Oxygen Flow Rate 3 02/09/24 16:00 02/09/24 16:50 02/09/24 17:50 Temperature 98.9 F 99.0 F Pulse Rate 89 94 85 Respiratory Rate 24 H 20 Blood Pressure 90/69 L 86/74 L 95/57 L Pulse Oximetry 100 99 Oxygen Delivery Oxygen Flow Rate 02/09/24 18:00 02/09/24 18:00 02/09/24 18:00 Temperature 99.0 F Pulse Rate 87 87 85 Respiratory Rate 20 Blood Pressure 86/74 L 86/74 L Pulse Oximetry 97 Oxygen Delivery Oxygen Flow Rate 02/09/24 18:50 02/09/24 20:00 02/09/24 20:00 Temperature 99.1 F Pulse Rate 93 96 84 Respiratory Rate 20 20 Blood Pressure 91/71 L Pulse Oximetry 93 93 Oxygen Delivery Nasal Cannula Oxygen Flow Rate 3 02/09/24 20:00 02/09/24 20:00 02/09/24 20:35 Temperature 98.1 F Pulse Rate 78 78 Respiratory Rate 22 H Blood Pressure 87/63 L 87/63 L Pulse Oximetry 93 95 Oxygen Delivery Nasal Cannula Oxygen Flow Rate 3 02/09/24 20:35 02/09/24 22:00 02/09/24 22:00 Temperature Pulse Rate 79 68 68 Respiratory Rate 19 Blood Pressure 81/62 L Pulse Oximetry 95 96 Oxygen Delivery Autopap Oxygen Flow Rate 02/09/24 22:00 02/10/24 00:00 02/10/24 00:00 Temperature Pulse Rate 67 64 67 Respiratory Rate 19 Blood Pressure Pulse Oximetry 96 Oxygen Delivery CPAP Oxygen Flow Rate 3 02/10/24 00:00 02/10/24 00:00 02/10/24 02:00 Temperature 98.3 F Pulse Rate 64 74 75 Respiratory Rate 18 Blood Pressure 84/64 L Pulse Oximetry 97 Oxygen Delivery Oxygen Flow Rate 02/10/24 02:00 02/10/24 02:00 02/10/24 03:00 Temperature 98.0 F Pulse Rate 74 74 74 Respiratory Rate 19 Blood Pressure 117/69 Pulse Oximetry 95 93 Oxygen Delivery Autopap Oxygen Flow Rate 02/10/24 04:00 02/10/24 04:00 02/10/24 04:00 Temperature 97.9 F Pulse Rate 74 74 60 Respiratory Rate 19 23 H Blood Pressure 82/62 L Pulse Oximetry 93 96 Oxygen Delivery CPAP Oxygen Flow Rate 3 02/10/24 06:00 02/10/24 06:00 02/10/24 08:00 Temperature 97.8 F 97.8 F Pulse Rate 59 L 59 L 69 Respiratory Rate 18 16 Blood Pressure 85/65 L 95/69 L Pulse Oximetry 100 99 Oxygen Delivery Oxygen Flow Rate 02/10/24 08:00 02/10/24 08:00 02/10/24 08:14 Temperature Pulse Rate 57 L 76 74 Respiratory Rate Blood Pressure Pulse Oximetry Oxygen Delivery Oxygen Flow Rate 02/10/24 10:00 02/10/24 10:00 02/10/24 10:00 Temperature 97.9 F Pulse Rate 62 74 74 Respiratory Rate 19 Blood Pressure 84/58 L Pulse Oximetry 93 Oxygen Delivery Oxygen Flow Rate Intake/Output Intake/Output: Intake & Output 02/07/24 02/08/24 02/09/24 02/10/24 23:59 23:59 23:59 23:59 Intake Total 2562.1 1898.3 1481.9 340 Output Total 800 750 750 700 Balance 1762.1 1148.3 731.9 -360 Meds/Results Medications: Active Medications Generic Name Dose Route Start Last Admin Trade Name Freq PRN Reason Stop Dose Admin Albuterol 1 puff 02/05/24 23:39 Albuterol Sulfate (*Sp) Aerosol 1 Puff INHALATION Q4HRT PRN shortness of breath or wheezing Amiodarone HCl 200 mg 02/09/24 13:15 02/10/24 08:14 Amiodarone Hcl 200 Mg Tablet PO 200 mg DAILY@0800 KEATON Administration Anastrozole 1 mg 02/06/24 09:00 02/10/24 08:14 Anastrozole (*Chemo) 1 Mg Tablet PO 1 mg DAILY KEATON Administration Apixaban 5 mg 02/09/24 09:15 02/10/24 08:14 Apixaban 5 Mg Tablet PO 5 mg Q12HR KEATON Administration Aspirin 81 mg 02/07/24 09:55 02/10/24 08:14 Aspirin 81 Mg Enteric Tablet PO 81 mg QAM KEATON Administration Atorvastatin Calcium 80 mg 02/07/24 09:55 02/10/24 08:14 Atorvastatin 40 Mg Tablet PO 80 mg DAILY KEATON Administration Dextrose 12.5 gm 02/05/24 19:30 Dextrose 50% 25 Gm/50 Ml Syringe IV PUSH PRN PRN Hypoglycemia Protocol Glucagon 1 mg 02/05/24 19:30 Glucagon For Inj 1 Mg Vial IM PRN PRN Hypoglycemia Protocol Glucose 15 gm 02/05/24 19:30 Glucose Oral Gel 15 Gm Of Glucse In 37.5 Gm Tube PO PRN PRN Hypoglycemia Protocol Norepinephrine Bitartrate 8 mg in 250 mls @ 0 mls/hr 02/05/24 17:30 02/10/24 10:00 Levophed 8 Mg/D5w 250 Ml IV CONT 0 mcg/min .Q0M KEATON 0 mls/hr Titration Protocol Dextrose 1,000 mls @ 100 mls/hr 02/05/24 19:30 Dextrose 5% 1,000 Ml IVPB PRN PRN Hypoglycemia Protocol Vancomycin HCl 1,250 mg in 250 mls @ 166.667 mls/hr 02/08/24 20:00 02/09/24 22:40 Vancomycin 1,250 Mg/Ns 250 Ml IVPB 02/11/24 23:59 Infused Q24H KEATON Infusion Albumin Human 100 mls @ 60 mls/hr 02/10/24 09:00 02/10/24 08:10 Albutein IVPB 02/10/24 22:39 60 mls/hr Q12HR KEATON Administration Insulin Aspart 4 - 8 units 02/06/24 08:00 02/10/24 08:14 Insulin Aspart (*Bkc) 100 Units/Ml SUB-Q Not Given TIDWM KEATON Protocol Levothyroxine Sodium 112 mcg 02/06/24 06:30 02/10/24 07:15 Levothyroxine Sodium 112 Mcg Tablet PO 112 mcg DAILY@0630 KEATON Administration Midodrine 10 mg 02/06/24 09:00 02/10/24 08:13 Midodrine Hcl 10 Mg Tablet PO 10 mg TID KEATON Administration Ondansetron HCl 4 mg 02/09/24 04:25 02/09/24 04:15 Ondansetron Inj 4 Mg/2 Ml Vial IV PUSH 4 mg Q6H PRN Administration Nausea And Vomiting Pantoprazole Sodium 40 mg 02/05/24 19:35 02/10/24 08:14 Pantoprazole Sodium Iv 40 Mg Vial IV PUSH 40 mg QAM KEATON Administration Sodium Bicarbonate 650 mg 02/06/24 09:00 02/10/24 08:14 Sodium Bicarbonate Tab 650 Mg Tablet PO 650 mg BID KEATON Administration Sodium Chloride 10 ml 02/05/24 22:00 02/10/24 07:15 Central Line Flush IV PUSH 10 ml Q8HR KEATON Administration Sodium Chloride 20 ml 02/05/24 18:52 Central Line Flush IV PUSH PRN PRN after blood draws Radiology Results: ITS Impressions Abdomen/Pelvis CT 02/05/24 16:21 IMPRESSION: Mild cardiomegaly, coronary atherosclerosis Probable prior left thoracotomy Status post cholecystectomy Suggestion of decubitus ulcer and underlying inflammation capsularis and/or pulmonary edema of the medial right buttock Extensive degenerative changes of the thoracic and lumbar spine and the hips, especially the left hip ADDENDUM: 02/05/24 1804 Correction: IMPRESSIONS: Suggestion of decubitus ulcer and underlying inflammation/cellulitis and or subcutaneous edema of the medial right buttock Chest X-Ray 02/09/24 06:46 Impression: Minimal pleural effusions. COPD. Possible superimposed mild pulmonary edema. Cardiomegaly and Mediport unchanged. Labs Labs: Laboratory Results - last 24 hr 02/09/24 02/10/24 02/10/24 16:38 06:30 07:33 WBC 4.9 RBC 3.22 L Hgb 9.5 L Hct 29.2 L MCV 90.7 MCH 29.5 MCHC 32.5 RDW 15.2 H Plt Count 214 MPV 10.7 H Immature Gran % (Auto) 1.6 H Neut % (Auto) 71.4 Lymph % (Auto) 16.3 L Clark % (Auto) 7.6 Eos % (Auto) 2.7 Baso % (Auto) 0.4 Lymph # (Auto) 0.79 L Clark # (Auto) 0.4 Eos # (Auto) 0.1 Baso # (Auto) 0.0 Abs Immat Gran (auto) 0.08 H Absolute Neuts (auto) 3.5 Absolute Nucleated RBC 0.020 H Nucleated RBC % 0.4 H Sodium 139 Potassium 3.7 Chloride 103 Carbon Dioxide 30 Anion Gap 6 BUN 19 H Creatinine 1.60 H Estim Creat Clear Calc 31 Estimated GFR 31 L Glucose 114 H POC Capillary Glucose 126 H 115 H Calcium 8.9 Phosphorus 3.0 Magnesium 2.0 Total Bilirubin 0.4 AST 41 H ALT 26 Alkaline Phosphatase 54 Total Protein 6.0 L Albumin 3.6 Quality VTE Prophylaxis VTE prophylaxis: mechanical ordered and pharmacologic ordered
[2024-02-10 12:04] LABS: Glucose Point of Care 131 mg/dl (65-105)
[2024-02-10] MEDS: SPIRONOLACTONE 12.5 MG TABLET PO (12:40)
[2024-02-10] MEDS: POTASSIUM CHLORIDE 20 MEQ PACKET (FOR LIQUID) 40 MEQ PO (12:41)
--- NOTE | 2024-02-10 13:11 | P.PNCA_ITS ---
Progress Note: A&P Assessment and Plan (1) Cardiomyopathy: Code(s): I42.9 - Cardiomyopathy, unspecified Status: Acute (2) Cardiac arrest: Code(s): I46.9 - Cardiac arrest, cause unspecified Status: Acute (3) Elevated troponin: Code(s): R79.89 - Other specified abnormal findings of blood chemistry Status: Acute Plan 1. Sepsis/Septic Shock 2. VT/VF Arrest 3. Acute on chronic systolic HF NYHA III, Stage C EF 20-25% 4. Non ischemic Cardiomyopathy 5. Hyperlipidemia 6. Aflutter - Will decrease dose of atorvastatin to 20 mg OD - Will initiate GDMT for HF if BP allows - Lasix as needed by ICU for diuresis based on her MAP - Continue amiodarone 200 mg OD, apixaban 5 mg BID - Consider life vest on discharge prior to placement of a secondary prevention ICD Subjective Date/time seen: 02/10/24 13:11 Interval history: Feels slightly better Off inotropes now, soft BP, on midodrine now Review of Systems Review of Systems: All systems reviewed & are unremarkable except as noted in HPI and below (HPI) Exam Const: General: no acute distress Other: Elderly female that appears older than stated age. HENMT: Mouth: Yes dry mucous membranes Eyes: General: appearance normal, both eyes and all related structures Sclera: sclerae normal Resp: Effort & Inspection: normal respiratory effort Auscultation: clear to auscultation bilaterally Cardio: Rate: regular rate Rhythm: regular rhythm Heart sounds: no murmurs Skin: General skin exam: normal color Neuro: Speech: normal speech Psych: Mental Status: mental status grossly normal Affect: normal affect Objective Data Vital Signs Vital Signs: Vital Signs - 24 hr 02/09/24 13:20 02/09/24 13:32 02/09/24 13:35 Temperature Pulse Rate 85 84 86 Respiratory Rate 20 22 H Blood Pressure 92/66 L 85/67 L Pulse Oximetry 97 96 Oxygen Delivery Oxygen Flow Rate 02/09/24 13:50 02/09/24 14:00 02/09/24 14:00 Temperature 37.0 C Pulse Rate 85 85 85 Respiratory Rate 20 20 Blood Pressure 86/66 L 86/66 L Pulse Oximetry 99 99 Oxygen Delivery Oxygen Flow Rate 02/09/24 14:00 02/09/24 14:20 02/09/24 14:50 Temperature Pulse Rate 85 92 91 Respiratory Rate 20 20 Blood Pressure 86/66 L 90/71 L 86/67 L Pulse Oximetry 99 97 Oxygen Delivery Oxygen Flow Rate 02/09/24 15:50 02/09/24 16:00 02/09/24 16:00 Temperature 37.1 C Pulse Rate 91 87 Respiratory Rate 20 Blood Pressure 86/65 L Pulse Oximetry 97 98 Oxygen Delivery Nasal Cannula Oxygen Flow Rate 3 02/09/24 16:00 02/09/24 16:00 02/09/24 16:50 Temperature 37.1 C 37.2 C Pulse Rate 89 89 94 Respiratory Rate 20 24 H Blood Pressure 90/69 L 90/69 L 86/74 L Pulse Oximetry 98 100 Oxygen Delivery Oxygen Flow Rate 02/09/24 17:50 02/09/24 18:00 02/09/24 18:00 Temperature 37.2 C 37.2 C Pulse Rate 85 87 87 Respiratory Rate 20 20 Blood Pressure 95/57 L 86/74 L Pulse Oximetry 99 97 Oxygen Delivery Oxygen Flow Rate 02/09/24 18:00 02/09/24 18:50 02/09/24 20:00 Temperature 37.3 C Pulse Rate 85 93 96 Respiratory Rate 20 20 Blood Pressure 86/74 L 91/71 L Pulse Oximetry 93 93 Oxygen Delivery Nasal Cannula Oxygen Flow Rate 3 02/09/24 20:00 02/09/24 20:00 02/09/24 20:00 Temperature 36.7 C Pulse Rate 84 78 78 Respiratory Rate 22 H Blood Pressure 87/63 L 87/63 L Pulse Oximetry 93 Oxygen Delivery Oxygen Flow Rate 02/09/24 20:35 02/09/24 20:35 02/09/24 22:00 Temperature Pulse Rate 79 68 Respiratory Rate Blood Pressure Pulse Oximetry 95 95 Oxygen Delivery Nasal Cannula Autopap Oxygen Flow Rate 3 02/09/24 22:00 02/09/24 22:00 02/10/24 00:00 Temperature Pulse Rate 68 67 64 Respiratory Rate 19 19 Blood Pressure 81/62 L Pulse Oximetry 96 96 Oxygen Delivery CPAP Oxygen Flow Rate 3 02/10/24 00:00 02/10/24 00:00 02/10/24 00:00 Temperature 36.8 C Pulse Rate 67 64 74 Respiratory Rate 18 Blood Pressure 84/64 L Pulse Oximetry 97 Oxygen Delivery Oxygen Flow Rate 02/10/24 02:00 02/10/24 02:00 02/10/24 02:00 Temperature 36.7 C Pulse Rate 75 74 74 Respiratory Rate 19 Blood Pressure 117/69 Pulse Oximetry 95 Oxygen Delivery Oxygen Flow Rate 02/10/24 03:00 02/10/24 04:00 02/10/24 04:00 Temperature Pulse Rate 74 74 74 Respiratory Rate 19 Blood Pressure Pulse Oximetry 93 93 Oxygen Delivery Autopap CPAP Oxygen Flow Rate 3 02/10/24 04:00 02/10/24 06:00 02/10/24 06:00 Temperature 36.6 C 36.6 C Pulse Rate 60 59 L 59 L Respiratory Rate 23 H 18 Blood Pressure 82/62 L 85/65 L Pulse Oximetry 96 100 Oxygen Delivery Oxygen Flow Rate 02/10/24 08:00 02/10/24 08:00 02/10/24 08:00 Temperature 36.6 C Pulse Rate 69 57 L 76 Respiratory Rate 16 Blood Pressure 95/69 L Pulse Oximetry 99 Oxygen Delivery Oxygen Flow Rate 02/10/24 08:14 02/10/24 10:00 02/10/24 10:00 Temperature 36.6 C Pulse Rate 74 62 74 Respiratory Rate 19 Blood Pressure 84/58 L Pulse Oximetry 93 Oxygen Delivery Oxygen Flow Rate 02/10/24 10:00 02/10/24 12:00 02/10/24 12:00 Temperature 36.9 C Pulse Rate 74 72 72 Respiratory Rate 17 Blood Pressure 94/67 L Pulse Oximetry 99 Oxygen Delivery Oxygen Flow Rate 02/10/24 12:00 Temperature Pulse Rate 74 Respiratory Rate Blood Pressure Pulse Oximetry Oxygen Delivery Oxygen Flow Rate Intake/Output Intake/Output: Intake & Output 02/07/24 02/08/24 02/09/24 02/10/24 23:59 23:59 23:59 23:59 Intake Total 2562.1 1898.3 1481.9 580 Output Total 800 750 750 700 Balance 1762.1 1148.3 731.9 -120 Meds/Results Medications: Active Medications Generic Name Dose Route Start Last Admin Trade Name Freq PRN Reason Stop Dose Admin Albuterol 1 puff 02/05/24 23:39 Albuterol Sulfate (*Sp) Aerosol 1 Puff INHALATION Q4HRT PRN shortness of breath or wheezing Amiodarone HCl 200 mg 02/09/24 13:15 02/10/24 08:14 Amiodarone Hcl 200 Mg Tablet PO 200 mg DAILY@0800 [facility] Administration Anastrozole 1 mg 02/06/24 09:00 02/10/24 08:14 Anastrozole (*Chemo) 1 Mg Tablet PO 1 mg DAILY [facility] Administration Apixaban 5 mg 02/09/24 09:15 02/10/24 08:14 Apixaban 5 Mg Tablet PO 5 mg Q12HR [facility] Administration Aspirin 81 mg 02/07/24 09:55 02/10/24 08:14 Aspirin 81 Mg Enteric Tablet PO 81 mg QAM [facility] Administration Atorvastatin Calcium 80 mg 02/07/24 09:55 02/10/24 08:14 Atorvastatin 40 Mg Tablet PO 80 mg DAILY [facility] Administration Dextrose 12.5 gm 02/05/24 19:30 Dextrose 50% 25 Gm/50 Ml Syringe IV PUSH PRN PRN Hypoglycemia Protocol Glucagon 1 mg 02/05/24 19:30 Glucagon For Inj 1 Mg Vial IM PRN PRN Hypoglycemia Protocol Glucose 15 gm 02/05/24 19:30 Glucose Oral Gel 15 Gm Of Glucse In 37.5 Gm Tube PO PRN PRN Hypoglycemia Protocol Norepinephrine Bitartrate 8 mg in 250 mls @ 0 mls/hr 02/05/24 17:30 02/10/24 12:00 Levophed 8 Mg/D5w 250 Ml IV CONT 0 mcg/min .Q0M [facility] 0 mls/hr Titration Protocol Dextrose 1,000 mls @ 100 mls/hr 02/05/24 19:30 Dextrose 5% 1,000 Ml IVPB PRN PRN Hypoglycemia Protocol Vancomycin HCl 1,250 mg in 250 mls @ 166.667 mls/hr 02/08/24 20:00 02/09/24 22:40 Vancomycin 1,250 Mg/Ns 250 Ml IVPB 02/11/24 23:59 Infused Q24H [facility] Infusion Albumin Human 100 mls @ 60 mls/hr 02/10/24 09:00 02/10/24 08:10 Albutein IVPB 02/10/24 22:39 60 mls/hr Q12HR [facility] Administration Insulin Aspart 4 - 8 units 02/06/24 08:00 02/10/24 12:03 Insulin Aspart (*Bkc) 100 Units/Ml SUB-Q Not Given TIDWM [facility] Protocol Levothyroxine Sodium 112 mcg 02/06/24 06:30 02/10/24 07:15 Levothyroxine Sodium 112 Mcg Tablet PO 112 mcg DAILY@0630 [facility] Administration Midodrine 10 mg 02/06/24 09:00 02/10/24 12:40 Midodrine Hcl 10 Mg Tablet PO 10 mg TID [facility] Administration Ondansetron HCl 4 mg 02/09/24 04:25 02/09/24 04:15 Ondansetron Inj 4 Mg/2 Ml Vial IV PUSH 4 mg Q6H PRN Administration Nausea And Vomiting Pantoprazole Sodium 40 mg 02/05/24 19:35 02/10/24 08:14 Pantoprazole Sodium Iv 40 Mg Vial IV PUSH 40 mg QAM [facility] Administration Sodium Bicarbonate 650 mg 02/06/24 09:00 02/10/24 08:14 Sodium Bicarbonate Tab 650 Mg Tablet PO 650 mg BID [facility] Administration Sodium Chloride 10 ml 02/05/24 22:00 02/10/24 07:15 Central Line Flush IV PUSH 10 ml Q8HR [facility] Administration Sodium Chloride 20 ml 02/05/24 18:52 Central Line Flush IV PUSH PRN PRN after blood draws Radiology Results: ITS Impressions Abdomen/Pelvis CT 02/05/24 16:21 IMPRESSION: Mild cardiomegaly, coronary atherosclerosis Probable prior left thoracotomy Status post cholecystectomy Suggestion of decubitus ulcer and underlying inflammation capsularis and/or pulmonary edema of the medial right buttock Extensive degenerative changes of the thoracic and lumbar spine and the hips, especially the left hip ADDENDUM: 02/05/24 1804 Correction: IMPRESSIONS: Suggestion of decubitus ulcer and underlying inflammation/cellulitis and or subcutaneous edema of the medial right buttock Chest X-Ray 02/09/24 06:46 Impression: Minimal pleural effusions. COPD. Possible superimposed mild pulmonary edema. Cardiomegaly and Mediport unchanged. Labs Labs: Laboratory Results - last 24 hr 02/09/24 02/10/24 02/10/24 16:38 06:30 07:33 WBC 4.9 RBC 3.22 L Hgb 9.5 L Hct 29.2 L MCV 90.7 MCH 29.5 MCHC 32.5 RDW 15.2 H Plt Count 214 MPV 10.7 H Immature Gran % (Auto) 1.6 H Neut % (Auto) 71.4 Lymph % (Auto) 16.[address] [place] % (Auto) 7.6 Eos % (Auto) 2.7 Baso % (Auto) 0.4 Lymph # (Auto) 0.[address] [place] # (Auto) 0.4 Eos # (Auto) 0.1 Baso # (Auto) 0.0 Abs Immat Gran (auto) 0.08 H Absolute Neuts (auto) 3.5 Absolute Nucleated RBC 0.020 H Nucleated RBC % 0.4 H Sodium 139 Potassium 3.7 Chloride 103 Carbon Dioxide 30 Anion Gap 6 BUN 19 H Creatinine 1.60 H Estim Creat Clear Calc 31 Estimated GFR 31 L Glucose 114 H POC Capillary Glucose 126 H 115 H Calcium 8.9 Phosphorus 3.0 Magnesium 2.0 Total Bilirubin 0.4 AST 41 H ALT 26 Alkaline Phosphatase 54 Total Protein 6.0 L Albumin 3.6 02/10/24 12:02 WBC RBC Hgb Hct MCV MCH MCHC RDW Plt Count MPV Immature Gran % (Auto) Neut % (Auto) Lymph % (Auto) [place] % (Auto) Eos % (Auto) Baso % (Auto) Lymph # (Auto) [place] # (Auto) Eos # (Auto) Baso # (Auto) Abs Immat Gran (auto) Absolute Neuts (auto) Absolute Nucleated RBC Nucleated RBC % Sodium Potassium Chloride Carbon Dioxide Anion Gap BUN Creatinine Estim Creat Clear Calc Estimated GFR Glucose POC Capillary Glucose 131 H Calcium Phosphorus Magnesium Total Bilirubin AST ALT Alkaline Phosphatase Total Protein Albumin
--- NOTE | 2024-02-10 13:17 | P.PNCA_ITS ---
Progress Note: A&P Assessment and Plan (1) Cardiomyopathy: Code(s): I42.9 - Cardiomyopathy, unspecified Status: Acute (2) Cardiac arrest: Code(s): I46.9 - Cardiac arrest, cause unspecified Status: Acute (3) Elevated troponin: Code(s): R79.89 - Other specified abnormal findings of blood chemistry Status: Acute Plan 1. Sepsis/Septic Shock 2. VT/VF Arrest 3. Acute on chronic systolic HF NYHA III, Stage C EF 20-25% 4. Non ischemic Cardiomyopathy 5. Hyperlipidemia 6. Aflutter - Continue atorvastatin 20 mg OD - Will initiate GDMT for HF if BP allows - Lasix as needed by ICU for diuresis based on her MAP - Continue amiodarone 200 mg OD, apixaban 5 mg BID - Consider life vest on discharge prior to placement of a secondary prevention ICD Subjective Date/time seen: 02/10/24 13:17 Interval history: No acute events BP better To be transferred out today Review of Systems Review of Systems: All systems reviewed & are unremarkable except as noted in HPI and below (HPI) Exam Const: General: no acute distress Other: Elderly female that appears older than stated age. HENMT: Mouth: Yes dry mucous membranes Eyes: General: appearance normal, both eyes and all related structures Sclera: sclerae normal Resp: Effort & Inspection: normal respiratory effort Auscultation: clear to auscultation bilaterally Cardio: Rate: regular rate Rhythm: regular rhythm Heart sounds: no mur murs Skin: General skin exam: normal color Neuro: Speech: normal speech Psych: Mental Status: mental status grossly normal Affect: normal affect Objective Data Vital Signs Vital Signs: Vital Signs - 24 hr 02/09/24 13:20 02/09/24 13:32 02/09/24 13:35 Temperature Pulse Rate 85 84 86 Respiratory Rate 20 22 H Blood Pressure 92/66 L 85/67 L Pulse Oximetry 97 96 Oxygen Delivery Oxygen Flow Rate 02/09/24 13:50 02/09/24 14:00 02/09/24 14:00 Temperature 37.0 C Pulse Rate 85 85 85 Respiratory Rate 20 20 Blood Pressure 86/66 L 86/66 L Pulse Oximetry 99 99 Oxygen Delivery Oxygen Flow Rate 02/09/24 14:00 02/09/24 14:20 02/09/24 14:50 Temperature Pulse Rate 85 92 91 Respiratory Rate 20 20 Blood Pressure 86/66 L 90/71 L 86/67 L Pulse Oximetry 99 97 Oxygen Delivery Oxygen Flow Rate 02/09/24 15:50 02/09/24 16:00 02/09/24 16:00 Temperature 37.1 C Pulse Rate 91 87 Respiratory Rate 20 Blood Pressure 86/65 L Pulse Oximetry 97 98 Oxygen Delivery Nasal Cannula Oxygen Flow Rate 3 02/09/24 16:00 02/09/24 16:00 02/09/24 16:50 Temperature 37.1 C 37.2 C Pulse Rate 89 89 94 Respiratory Rate 20 24 H Blood Pressure 90/69 L 90/69 L 86/74 L Pulse Oximetry 98 100 Oxygen Delivery Oxygen Flow Rate 02/09/24 17:50 02/09/24 18:00 02/09/24 18:00 Temperature 37.2 C 37.2 C Pulse Rate 85 87 87 Respiratory Rate 20 20 Blood Pressure 95/57 L 86/74 L Pulse Oximetry 99 97 Oxygen Delivery Oxygen Flow Rate 02/09/24 18:00 02/09/24 18:50 02/09/24 20:00 Temperature 37.3 C Pulse Rate 85 93 96 Respiratory Rate 20 20 Blood Pressure 86/74 L 91/71 L Pulse Oximetry 93 93 Oxygen Delivery Nasal Cannula Oxygen Flow Rate 3 02/09/24 20:00 02/09/24 20:00 02/09/24 20:00 Temperature 36.7 C Pulse Rate 84 78 78 Respiratory Rate 22 H Blood Pressure 87/63 L 87/63 L Pulse Oximetry 93 Oxygen Delivery Oxygen Flow Rate 02/09/24 20:35 02/09/24 20:35 02/09/24 22:00 Temperature Pulse Rate 79 68 Respiratory Rate Blood Pressure Pulse Oximetry 95 95 Oxygen Delivery Nasal Cannula Autopap Oxygen Flow Rate 3 02/09/24 22:00 02/09/24 22:00 02/10/24 00:00 Temperature Pulse Rate 68 67 64 Respiratory Rate 19 19 Blood Pressure 81/62 L Pulse Oximetry 96 96 Oxygen Delivery CPAP Oxygen Flow Rate 3 02/10/24 00:00 02/10/24 00:00 02/10/24 00:00 Temperature 36.8 C Pulse Rate 67 64 74 Respiratory Rate 18 Blood Pressure 84/64 L Pulse Oximetry 97 Oxygen Delivery Oxygen Flow Rate 02/10/24 02:00 02/10/24 02:00 02/10/24 02:00 Temperature 36.7 C Pulse Rate 75 74 74 Respiratory Rate 19 Blood Pressure 117/69 Pulse Oximetry 95 Oxygen Delivery Oxygen Flow Rate 02/10/24 03:00 02/10/24 04:00 02/10/24 04:00 Temperature Pulse Rate 74 74 74 Respiratory Rate 19 Blood Pressure Pulse Oximetry 93 93 Oxygen Delivery Autopap CPAP Oxygen Flow Rate 3 02/10/24 04:00 02/10/24 06:00 02/10/24 06:00 Temperature 36.6 C 36.6 C Pulse Rate 60 59 L 59 L Respiratory Rate 23 H 18 Blood Pressure 82/62 L 85/65 L Pulse Oximetry 96 100 Oxygen Delivery Oxygen Flow Rate 02/10/24 08:00 02/10/24 08:00 02/10/24 08:00 Temperature 36.6 C Pulse Rate 69 57 L 76 Respiratory Rate 16 Blood Pressure 95/69 L Pulse Oximetry 99 Oxygen Delivery Oxygen Flow Rate 02/10/24 08:14 02/10/24 10:00 02/10/24 10:00 Temperature 36.6 C Pulse Rate 74 62 74 Respiratory Rate 19 Blood Pressure 84/58 L Pulse Oximetry 93 Oxygen Delivery Oxygen Flow Rate 02/10/24 10:00 02/10/24 12:00 02/10/24 12:00 Temperature 36.9 C Pulse Rate 74 72 72 Respiratory Rate 17 Blood Pressure 94/67 L Pulse Oximetry 99 Oxygen Delivery Oxygen Flow Rate 02/10/24 12:00 Temperature Pulse Rate 74 Respiratory Rate Blood Pressure Pulse Oximetry Oxygen Delivery Oxygen Flow Rate Intake/Output Intake/Output: Intake & Output 02/07/24 02/08/24 02/09/24 02/10/24 23:59 23:59 23:59 23:59 Intake Total 2562.1 1898.3 1481.9 580 Output Total 800 750 750 700 Balance 1762.1 1148.3 731.9 -120 Meds/Results Medications: Active Medications Generic Name Dose Route Start Last Admin Trade Name Freq PRN Reason Stop Dose Admin Albuterol 1 puff 02/05/24 23:39 Albuterol Sulfate (*Sp) Aerosol 1 Puff INHALATION Q4HRT PRN shortness of breath or wheezing Amiodarone HCl 200 mg 02/09/24 13:15 02/10/24 08:14 Amiodarone Hcl 200 Mg Tablet PO 200 mg DAILY@0800 [facility] Administration Anastrozole 1 mg 02/06/24 09:00 02/10/24 08:14 Anastrozole (*Chemo) 1 Mg Tablet PO 1 mg DAILY [facility] Administration Apixaban 5 mg 02/09/24 09:15 02/10/24 08:14 Apixaban 5 Mg Tablet PO 5 mg Q12HR [facility] Administration Aspirin 81 mg 02/07/24 09:55 02/10/24 08:14 Aspirin 81 Mg Enteric Tablet PO 81 mg QAM [facility] Administration Atorvastatin Calcium 20 mg 02/11/24 09:00 Atorvastatin 20 Mg Tablet PO DAILY [facility] Dextrose 12.5 gm 02/05/24 19:30 Dextrose 50% 25 Gm/50 Ml Syringe IV PUSH PRN PRN Hypoglycemia Protocol Glucagon 1 mg 02/05/24 19:30 Glucagon For Inj 1 Mg Vial IM PRN PRN Hypoglycemia Protocol Glucose 15 gm 02/05/24 19:30 Glucose Oral Gel 15 Gm Of Glucse In 37.5 Gm Tube PO PRN PRN Hypoglycemia Protocol Norepinephrine Bitartrate 8 mg in 250 mls @ 0 mls/hr 02/05/24 17:30 02/10/24 12:00 Levophed 8 Mg/D5w 250 Ml IV CONT 0 mcg/min .Q0M [facility] 0 mls/hr Titration Protocol Dextrose 1,000 mls @ 100 mls/hr 02/05/24 19:30 Dextrose 5% 1,000 Ml IVPB PRN PRN Hypoglycemia Protocol Vancomycin HCl 1,250 mg in 250 mls @ 166.667 mls/hr 02/08/24 20:00 02/09/24 22:40 Vancomycin 1,250 Mg/Ns 250 Ml IVPB 02/11/24 23:59 Infused Q24H [facility] Infusion Albumin Human 100 mls @ 60 mls/hr 02/10/24 09:00 02/10/24 08:10 Albutein IVPB 02/10/24 22:39 60 mls/hr Q12HR [facility] Administration Insulin Aspart 4 - 8 units 02/06/24 08:00 02/10/24 12:03 Insulin Aspart (*Bkc) 100 Units/Ml SUB-Q Not Given TIDWM [facility] Protocol Levothyroxine Sodium 112 mcg 02/06/24 06:30 02/10/24 07:15 Levothyroxine Sodium 112 Mcg Tablet PO 112 mcg DAILY@0630 [facility] Administration Midodrine 10 mg 02/06/24 09:00 02/10/24 12:40 Midodrine Hcl 10 Mg Tablet PO 10 mg TID [facility] Administration Ondansetron HCl 4 mg 02/09/24 04:25 02/09/24 04:15 Ondansetron Inj 4 Mg/2 Ml Vial IV PUSH 4 mg Q6H PRN Administration Nausea And Vomiting Pantoprazole Sodium 40 mg 02/05/24 19:35 02/10/24 08:14 Pantoprazole Sodium Iv 40 Mg Vial IV PUSH 40 mg QAM [facility] Administration Sodium Bicarbonate 650 mg 02/06/24 09:00 02/10/24 08:14 Sodium Bicarbonate Tab 650 Mg Tablet PO 650 mg BID [facility] Administration Sodium Chloride 10 ml 02/05/24 22:00 02/10/24 07:15 Central Line Flush IV PUSH 10 ml Q8HR [facility] Administration Sodium Chloride 20 ml 02/05/24 18:52 Central Line Flush IV PUSH PRN PRN after blood draws Radiology Results: ITS Impressions Abdomen/Pelvis CT 02/05/24 16:21 IMPRESSION: Mild cardiomegaly, coronary atherosclerosis Probable prior left thoracotomy Status post cholecystectomy Suggestion of decubitus ulcer and underlying inflammation capsularis and/or pulmonary edema of the medial right buttock Extensive degenerative changes of the thoracic and lumbar spine and the hips, especially the left hip ADDENDUM: 02/05/24 1804 Correction: IMPRESSIONS: Suggestion of decubitus ulcer and underlying inflammation/cellulitis and or subcutaneous edema of the medial right buttock Chest X-Ray 02/09/24 06:46 Impression: Minimal pleural effusions. COPD. Possible superimposed mild pulmonary edema. Cardiomegaly and Mediport unchanged. Labs Labs: Laboratory Results - last 24 hr 02/09/24 02/10/24 02/10/24 16:38 06:30 07:33 WBC 4.9 RBC 3.22 L Hgb 9.5 L Hct 29.2 L MCV 90.7 MCH 29.5 MCHC 32.5 RDW 15.2 H Plt Count 214 MPV 10.7 H Immature Gran % (Auto) 1.6 H Neut % (Auto) 71.4 Lymph % (Auto) 16.3 L [place] % (Auto) 7.6 Eos % (Auto) 2.7 Baso % (Auto) 0.4 Lymph # (Auto) 0.79 L [place] # (Auto) 0.4 Eos # (Auto) 0.1 Baso # (Auto) 0.0 Abs Immat Gran (auto) 0.08 H Absolute Neuts (auto) 3.5 Absolute Nucleated RBC 0.020 H Nucleated RBC % 0.4 H Sodium 139 Potassium 3.7 Chloride 103 Carbon Dioxide 30 Anion Gap 6 BUN 19 H Creatinine 1.60 H Estim Creat Clear Calc 31 Estimated GFR 31 L Glucose 114 H POC Capillary Glucose 126 H 115 H Calcium 8.9 Phosphorus 3.0 Magnesium 2.0 Total Bilirubin 0.4 AST 41 H ALT 26 Alkaline Phosphatase 54 Total Protein 6.0 L Albumin 3.6 02/10/24 12:02 WBC RBC Hgb Hct MCV MCH MCHC RDW Plt Count MPV Immature Gran % (Auto) Neut % (Auto) Lymph % (Auto) [place] % (Auto) Eos % (Auto) Baso % (Auto) Lymph # (Auto) [place] # (Auto) Eos # (Auto) Baso # (Auto) Abs Immat Gran (auto) Absolute Neuts (auto) Absolute Nucleated RBC Nucleated RBC % Sodium Potassium Chloride Carbon Dioxide Anion Gap BUN Creatinine Estim Creat Clear Calc Estimated GFR Glucose POC Capillary Glucose 131 H Calcium Phosphorus Magnesium Total Bilirubin AST ALT Alkaline Phosphatase Total Protein Albumin
--- NOTE | 2024-02-10 14:56 | P.PNIM_ITS ---
Progress Note: A&P Assessment and Plan (1) Cardiac arrest: Code(s): I46.9 - Cardiac arrest, cause unspecified Status: Acute Assessment and Plan: Cardiac arrest V-tach/VFib, multiple episodes of V-tach. -patient has been switched to p.o. amiodarone and patient on p.o. apixaban -cardiology following -patient was premedicated for contrast allergy prior to cardiac catheterization -02/07: Coronary angiogram showed no significant obstructive coronary artery disease, nonischemic cardiomyopathy, elevated LVEDP. According the control clerk subassembly, likely Takotsubo's cardiomyopathy ECHO showed EF 20-24% with severe global hypokinesis continue Midodrine (2) Cardiomyopathy: Code(s): I42.9 - Cardiomyopathy, unspecified Status: Acute Assessment and Plan: Severe cardiomyopathy likely ischemic which could be the cause of recurrent VFib/V-tach -mild to moderate MVR -patient benefit from angiography given severe global hypokinesis of the anterolateral wall and anteroseptum -patient require GDMT for her cardiomyopathy, when she is off pressors and blood pressures tolerate -will try a small dose of spironolactone, to decrease afterload (3) Shock: Code(s): R57.9 - Shock, unspecified Status: Acute Assessment and Plan: Patient presented with hypotension. Although she does have decubitus ulcer her WBC was normal and procalcitonin level is on the lower side Patient has decreased EF of 30-35% on last echo done in June 2023, hence it appears to be a multifactorial secondary to sepsis, hypovolemia, and cardiogenic -02/06: repeat echo as above shows EF of 20-25% Patient received adequate IV fluids, but unknown how long she was hypotensive. Off Levophed -02/04: Blood cultures negative x2 -02/05: Wound culture growing MRSA -02/07: Discontinue cefepime and Flagyl continue cefepime, Flagyl, -continue vancomycin (02/05) -TSH within normal limits -random cortisol was within normal limits -continue midodrine (4) Decubitus ulcer: Qualifiers: Pressure injury location: buttock Pressure injury stage: stage 2 Laterality: right Qualified Code(s): L89.312 - Pressure ulcer of right buttock, stage 2 Code(s): L89.90 - Pressure ulcer of unspecified site, unspecified stage Status: Acute Assessment and Plan: Evaluated by wound care nurses. Continue local wound care. Wound cultures and antibiotics as above (5) Diabetes type 2, controlled: Qualifiers: Diabetes mellitus retirement insulin use: without retirement use Diabetes mellitus complication status: without complication Qualified Code(s): E11.9 - Type 2 diabetes mellitus without complications Code(s): E11.9 - Type 2 diabetes mellitus without complications Status: Acute Assessment and Plan: Consistent carbohydrate diet Sliding scale insulin (6) Electrolyte abnormality: Code(s): E87.8 - Other disorders of electrolyte and fluid balance, not elsewhere classified Status: Acute Assessment and Plan: Replace potassium, magnesium and phosphorus (7) Metabolic acidosis: Code(s): E87.20 - Acidosis, unspecified Status: Acute Assessment and Plan: Resolved Secondary to CRICKET. Due to hypotension and shock -off bicarb infusion (8) Acute kidney injury: Code(s): N17.9 - Acute kidney failure, unspecified Status: Acute Assessment and Plan: Presented with acute kidney injury and creatinine of 2.[address] scan of the abdomen pelvis does not show any stone or hydronephrosis -urine output has been adequate a creatinine stable at 1.60 1.6 appears to be patient's baselien Plan DVT prophylaxis -continue Eliquis Stress ulcer prophylaxis -Protonix Nutrition -heart healthy diet Code Status: Patient wishes to be Full Code Subjective Date/time seen: 02/10/24 14:56 Interval history: Patient comfortable at bedside Blood pressure running soft, Midodrine Review of Systems Review of Systems: All systems reviewed & are unremarkable except as noted in HPI and below Exam Narrative: General: Old and frail female, is alert awake in no acute distress, kyphosis Lungs/Chest: Bilateral coarse breath sounds, rales at bases, no wheezing. Cardiac: Currently in sinus rhythm, S1-S2 is normal Circulation: Feet are warm, palpable pedal pulses Abdomen: Normal bowel sounds. Soft. Nontender, nondistended Extremities: No clubbing, cyanosis, mild pitting edema : Aleman in place Neurologic: Awake, alert, oriented to place and person and date of , follows simple commands in all extremities, able to carry out a conversation Skin: No Rash patient has decubitus ulcer Const: General: comfortable and no acute distress Other: , female, obese body habitus, nontoxic appearance HENMT: Face/Nose/Sinus: Normal nares present Mouth: Yes moist mucous membranes Eyes: General: appearance normal, both eyes and all related structures Sclera: sclerae normal Pupils: Equal, round and reactive pupils present EOM: EOMs intact bilaterally Resp: Effort & Inspection: normal respiratory effort Auscultation: clear to auscultation bilaterally Cardio: Rate: regular rate Rhythm: regular rhythm Other: S1-S2 present without murmur, rub, ectopy GI: Other: Sets abdomen rounded, soft, nontender. Normoactive bowel sounds in all quadrants. Skin: General skin exam: normal color, no rashes or lesions noted and wounds noted Wounds: wounds noted Other: shallow wound to posterior thigh just distal to the gluteal fold is approximately 3 x 1 and 0.5 cm with yellow to sanguinous drainage, scant to moderate. Mild erythema surrounding and mild tenderness. Second wound to right buttock measuring approximately 1.5 cm by 0.5 cm with red wound base, scant sanguinous drainage. Malodorous. Neuro: Cranial nerves: Yes Equal, round and reactive pupils present Speech: normal speech Motor exam (neuro): 5/5 motor strength present throughout Sensory Exam: normal sensation Other: A&O x4 Extrem: Other: 1+ nonpitting edema to bilateral lower e xtremities, symmetric. Psych: Mental Status: mental status grossly normal Affect: normal affect Other: Good insight and judgment, pleasant. Objective Data Vital Signs Vital Signs: Vital Signs - 24 hr 02/09/24 15:50 02/09/24 16:00 02/09/24 16:00 Temperature 98.8 F Pulse Rate 91 87 Respiratory Rate 20 Blood Pressure 86/65 L Pulse Oximetry 97 98 Oxygen Delivery Nasal Cannula Oxygen Flow Rate 3 02/09/24 16:00 02/09/24 16:00 02/09/24 16:50 Temperature 98.8 F 98.9 F Pulse Rate 89 89 94 Respiratory Rate 20 24 H Blood Pressure 90/69 L 90/69 L 86/74 L Pulse Oximetry 98 100 Oxygen Delivery Oxygen Flow Rate 02/09/24 17:50 02/09/24 18:00 02/09/24 18:00 Temperature 99.0 F 99.0 F Pulse Rate 85 87 87 Respiratory Rate 20 20 Blood Pressure 95/57 L 86/74 L Pulse Oximetry 99 97 Oxygen Delivery Oxygen Flow Rate 02/09/24 18:00 02/09/24 18:50 02/09/24 20:00 Temperature 99.1 F Pulse Rate 85 93 96 Respiratory Rate 20 20 Blood Pressure 86/74 L 91/71 L Pulse Oximetry 93 93 Oxygen Delivery Nasal Cannula Oxygen Flow Rate 3 02/09/24 20:00 02/09/24 20:00 02/09/24 20:00 Temperature 98.1 F Pulse Rate 84 78 78 Respiratory Rate 22 H Blood Pressure 87/63 L 87/63 L Pulse Oximetry 93 Oxygen Delivery Oxygen Flow Rate 02/09/24 20:35 02/09/24 20:35 02/09/24 22:00 Temperature Pulse Rate 79 68 Respiratory Rate Blood Pressure Pulse Oximetry 95 95 Oxygen Delivery Nasal Cannula Autopap Oxygen Flow Rate 3 02/09/24 22:00 02/09/24 22:00 02/10/24 00:00 Temperature Pulse Rate 68 67 64 Respiratory Rate 19 19 Blood Pressure 81/62 L Pulse Oximetry 96 96 Oxygen Delivery CPAP Oxygen Flow Rate 3 02/10/24 00:00 02/10/24 00:00 02/10/24 00:00 Temperature 98.3 F Pulse Rate 67 64 74 Respiratory Rate 18 Blood Pressure 84/64 L Pulse Oximetry 97 Oxygen Delivery Oxygen Flow Rate 02/10/24 02:00 02/10/24 02:00 02/10/24 02:00 Temperature 98.0 F Pulse Rate 75 74 74 Respiratory Rate 19 Blood Pressure 117/69 Pulse Oximetry 95 Oxygen Delivery Oxygen Flow Rate 02/10/24 03:00 02/10/24 04:00 02/10/24 04:00 Temperature Pulse Rate 74 74 74 Respiratory Rate 19 Blood Pressure Pulse Oximetry 93 93 Oxygen Delivery Autopap CPAP Oxygen Flow Rate 3 02/10/24 04:00 02/10/24 06:00 02/10/24 06:00 Temperature 97.9 F 97.8 F Pulse Rate 60 59 L 59 L Respiratory Rate 23 H 18 Blood Pressure 82/62 L 85/65 L Pulse Oximetry 96 100 Oxygen Delivery Oxygen Flow Rate 02/10/24 08:00 02/10/24 08:00 02/10/24 08:00 Temperature 97.8 F Pulse Rate 69 57 L 76 Respiratory Rate 16 Blood Pressure 95/69 L Pulse Oximetry 99 Oxygen Delivery Oxygen Flow Rate 02/10/24 08:14 02/10/24 10:00 02/10/24 10:00 Temperature 97.9 F Pulse Rate 74 62 74 Respiratory Rate 19 Blood Pressure 84/58 L Pulse Oximetry 93 Oxygen Delivery Oxygen Flow Rate 02/10/24 10:00 02/10/24 12:00 02/10/24 12:00 Temperature 98.4 F Pulse Rate 74 72 72 Respiratory Rate 17 Blood Pressure 94/67 L Pulse Oximetry 99 Oxygen Delivery Oxygen Flow Rate 02/10/24 12:00 Temperature Pulse Rate 74 Respiratory Rate Blood Pressure Pulse Oximetry Oxygen Delivery Oxygen Flow Rate Intake/Output Intake/Output: Intake & Output 02/07/24 02/08/24 02/09/24 02/10/24 23:59 23:59 23:59 23:59 Intake Total 2562.1 1898.3 1481.9 580 Output Total 800 750 750 700 Balance 1762.1 1148.3 731.9 -120 Meds/Results Medications: Active Medications Generic Name Dose Route Start Last Admin Trade Name Freq PRN Reason Stop Dose Admin Albuterol 1 puff 02/05/24 23:39 Albuterol Sulfate (*Sp) Aerosol 1 Puff INHALATION Q4HRT PRN shortness of breath or wheezing Amiodarone HCl 200 mg 02/09/24 13:15 02/10/24 08:14 Amiodarone Hcl 200 Mg Tablet PO 200 mg DAILY@0800 KEATON Administration Anastrozole 1 mg 02/06/24 09:00 02/10/24 08:14 Anastrozole (*Chemo) 1 Mg Tablet PO 1 mg DAILY KEATON Administration Apixaban 5 mg 02/09/24 09:15 02/10/24 08:14 Apixaban 5 Mg Tablet PO 5 mg Q12HR KEATON Administration Aspirin 81 mg 02/07/24 09:55 02/10/24 08:14 Aspirin 81 Mg Enteric Tablet PO 81 mg QAM KEATON Administration Atorvastatin Calcium 20 mg 02/11/24 09:00 Atorvastatin 20 Mg Tablet PO DAILY [facility] Dextrose 12.5 gm 02/05/24 19:30 Dextrose 50% 25 Gm/50 Ml Syringe IV PUSH PRN PRN Hypoglycemia Protocol Glucagon 1 mg 02/05/24 19:30 Glucagon For Inj 1 Mg Vial IM PRN PRN Hypoglycemia Protocol Glucose 15 gm 02/05/24 19:30 Glucose Oral Gel 15 Gm Of Glucse In 37.5 Gm Tube PO PRN PRN Hypoglycemia Protocol Norepinephrine Bitartrate 8 mg in 250 mls @ 0 mls/hr 02/05/24 17:30 02/10/24 12:00 Levophed 8 Mg/D5w 250 Ml IV CONT 0 mcg/min .Q0M KEATON 0 mls/hr Titration Protocol Dextrose 1,000 mls @ 100 mls/hr 02/05/24 19:30 Dextrose 5% 1,000 Ml IVPB PRN PRN Hypoglycemia Protocol Vancomycin HCl 1,250 mg in 250 mls @ 166.667 mls/hr 02/08/24 20:00 02/09/24 22:40 Vancomycin 1,250 Mg/Ns 250 Ml IVPB 02/11/24 23:59 Infused Q24H KEATON Infusion Albumin Human 100 mls @ 60 mls/hr 02/10/24 09:00 02/10/24 08:10 Albutein IVPB 02/10/24 22:39 60 mls/hr Q12HR KEATON Administration Insulin Aspart 4 - 8 units 02/06/24 08:00 02/10/24 12:03 Insulin Aspart (*Bkc) 100 Units/Ml SUB-Q Not Given TIDWM KEATON Protocol Levothyroxine Sodium 112 mcg 02/06/24 06:30 02/10/24 07:15 Levothyroxine Sodium 112 Mcg Tablet PO 112 mcg DAILY@0630 KEATON Administration Midodrine 10 mg 02/06/24 09:00 02/10/24 12:40 Midodrine Hcl 10 Mg Tablet PO 10 mg TID KEATON Administration Ondansetron HCl 4 mg 02/09/24 04:25 02/09/24 04:15 Ondansetron Inj 4 Mg/2 Ml Vial IV PUSH 4 mg Q6H PRN Administration Nausea And Vomiting Pantoprazole Sodium 40 mg 02/05/24 19:35 02/10/24 08:14 Pantoprazole Sodium Iv 40 Mg Vial IV PUSH 40 mg QAM KEATON Administration Sodium Bicarbonate 650 mg 02/06/24 09:00 02/10/24 08:14 Sodium Bicarbonate Tab 650 Mg Tablet PO 650 mg BID KEATON Administration Sodium Chloride 10 ml 02/05/24 22:00 02/10/24 07:15 Central Line Flush IV PUSH 10 ml Q8HR KEATON Administration Sodium Chloride 20 ml 02/05/24 18:52 Central Line Flush IV PUSH PRN PRN after blood draws Radiology Results: ITS Impressions Abdomen/Pelvis CT 02/05/24 16:21 IMPRESSION: Mild cardiomegaly, coronary atherosclerosis Probable prior left thoracotomy Status post cholecystectomy Suggestion of decubitus ulcer and underlying inflammation capsularis and/or pulmonary edema of the medial right buttock Extensive degenerative changes of the thoracic and lumbar spine and the hips, especially the left hip ADDENDUM: 02/05/24 1804 Correction: IMPRESSIONS: Suggestion of decubitus ulcer and underlying inflammation/cellulitis and or subcutaneous edema of the medial right buttock Chest X-Ray 02/09/24 06:46 Impression: Minimal pleural effusions. COPD. Possible superimposed mild pulmonary edema. Cardiomegaly and Mediport unchanged. Labs Labs: Laboratory Results - last 24 hr 02/09/24 02/10/24 02/10/24 16:38 06:30 07:33 WBC 4.9 RBC 3.22 L Hgb 9.5 L Hct 29.2 L MCV 90.7 MCH 29.5 MCHC 32.5 RDW 15.2 H Plt Count 214 MPV 10.7 H Immature Gran % (Auto) 1.6 H Neut % (Auto) 71.4 Lymph % (Auto) 16.3 L Clay % (Auto) 7.6 Eos % (Auto) 2.7 Baso % (Auto) 0.4 Lymph # (Auto) 0.79 L Clay # (Auto) 0.4 Eos # (Auto) 0.1 Baso # (Auto) 0.0 Abs Immat Gran (auto) 0.08 H Absolute Neuts (auto) 3.5 Absolute Nucleated RBC 0.020 H Nucleated RBC % 0.4 H Sodium 139 Potassium 3.7 Chloride 103 Carbon Dioxide 30 Anion Gap 6 BUN 19 H Creatinine 1.60 H Estim Creat Clear Calc 31 Estimated GFR 31 L Glucose 114 H POC Capillary Glucose 126 H 115 H Calcium 8.9 Phosphorus 3.0 Magnesium 2.0 Total Bilirubin 0.4 AST 41 H ALT 26 Alkaline Phosphatase 54 Total Protein 6.0 L Albumin 3.6 02/10/24 12:02 WBC RBC Hgb Hct MCV MCH MCHC RDW Plt Count MPV Immature Gran % (Auto) Neut % (Auto) Lymph % (Auto) Clay % (Auto) Eos % (Auto) Baso % (Auto) Lymph # (Auto) Clay # (Auto) Eos # (Auto) Baso # (Auto) Abs Immat Gran (auto) Absolute Neuts (auto) Absolute Nucleated RBC Nucleated RBC % Sodium Potassium Chloride Carbon Dioxide Anion Gap BUN Creatinine Estim Creat Clear Calc Estimated GFR Glucose POC Capillary Glucose 131 H Calcium Phosphorus Magnesium Total Bilirubin AST ALT Alkaline Phosphatase Total Protein Albumin Quality VTE Prophylaxis VTE prophylaxis: mechanical ordered and pharmacologic ordered
[2024-02-10 17:05] LABS: Glucose Point of Care 141 mg/dl (65-105)
[2024-02-11] VITALS (17 sets, daily range): BP systolic 92–120; BP diastolic 64–99; PULSE 61–94; RESP 15–20; TEMP 36.8–37.6; O2SAT 97–100
[2024-02-11] MEDS: CENTRAL LINE FLUSH 10 ML IV PUSH (05:52)
[2024-02-11] MEDS: LEVOTHYROXINE SODIUM 112 MCG TABLET PO (05:52)
[2024-02-11 05:53] LABS: Basophils Percent Auto 0.5 % (0.2-1.2); Eosinophils Absolute Auto 0.2 K/mm3 (0-0.3); Hematocrit 29.1 % (37.0-47.0); Hemoglobin 9.3 g/dL (12.0-15.0); Immature Granulocyte Absolute 0.08 K/mm3 (0.00-0.031); Lymphocytes Absolute Auto 0.81 K/mm3 (0.9-3.2); Lymphocytes Percent Auto 20.4 % (18.3-44.2); Mean Corpuscular Volume 90.7 fl (80-100); Mean Platelet Volume 10.4 fl (7.4-10.4); Monocytes Absolute Auto 0.5 K/mm3 (0.1-0.6); Monocytes Percent Auto 11.3 % (2.6-8.5); Neutrophils Absolute Auto 2.5 K/mm3 (1.3-6.7); Neutrophils Percent Auto 61.8 % (45.5-73.1); Platelet Count Result 217 k/mm3 (150-375); Red Blood Count 3.21 M/mm3 (4.2-5.4); Red Cell Distribution Width 15.2 % (11.5-14.5)
[2024-02-11 06:01] LABS: Alanine Aminotransferase 21 U/L (6-35); Albumin Level 3.7 g/dL (3.5-5.1); Alkaline Phosphatase 49 U/L (38-126); Anion Gap 3 mmol/L (4-12); Aspartate Amino Transferase 29 U/L (14-36); Bilirubin,Total 0.5 mg/dL (0.2-1.3); Blood Urea Nitrogen 21 mg/dL (7-17); Carbon Dioxide 32 mmol/L (22-30); Chloride 101 mmol/L (98-107); Estimated CRCL calculation 33 ml/min; Estimated Glomerular Filt Rate 34; Glucose 115 mg/dL (65-110); Magnesium 1.8 mg/dL (1.6-2.3); Phosphorus 2.6 mg/dL (2.5-4.5); Potassium 3.8 mmol/L (3.4-5.0); Sodium 136 mmol/L (137-145)
[2024-02-11] MEDS: ASPIRIN 81 MG ENTERIC TABLET PO (08:20)
[2024-02-11] MEDS: POTASSIUM CHLORIDE 20 MEQ ER TABLET 40 MEQ PO (08:20)
[2024-02-11] MEDS: MIDODRINE HCL 10 MG TABLET PO ×3 (08:20→17:43)
[2024-02-11] MEDS: PANTOPRAZOLE SODIUM IV 40 MG VIAL IV PUSH (08:20)
[2024-02-11] MEDS: APIXABAN 5 MG TABLET PO ×2 (08:21→21:28)
[2024-02-11] MEDS: MAGNESIUM SULF 2 GM/WATER 50ML 2 GM/50 ML BAG IVPB (08:21)
[2024-02-11] MEDS: SODIUM BICARBONATE TAB 650 MG TABLET PO ×2 (08:21→17:43)
[2024-02-11] MEDS: AMIODARONE HCL 200 MG TABLET PO (08:21)
[2024-02-11] MEDS: ATORVASTATIN 20 MG TABLET PO (08:21)
[2024-02-11] MEDS: ANASTROZOLE (*CHEMO) 1 MG TABLET PO (08:21)
[2024-02-11 08:44] LABS: Glucose Point of Care 114 mg/dl (65-105)
--- NOTE | 2024-02-11 10:36 | WPDINTPN ---
Progress Note: A&P Assessment and Plan (1) Cardiac arrest: Code(s): I46.9 - Cardiac arrest, cause unspecified Status: Acute Assessment and Plan: Cardiac arrest V-tach/VFib, multiple episodes of V-tach. -patient has been switched to p.o. amiodarone and patient on p.o. apixaban -cardiology following -patient was premedicated for contrast allergy prior to cardiac catheterization -02/07: Coronary angiogram showed no significant obstructive coronary artery disease, nonischemic cardiomyopathy, elevated LVEDP. According the eviction specialist, likely Takotsubo's cardiomyopathy -02/07/2024: Echocardiogram Summary 1. Left ventricular chamber dimension is moderately enlarged. 2. There is mildly increased left ventricular wall thickness. 3. Left ventricular systolic function is severely reduced, estimated at 20-25%. 4. Severe global hypokinesis with more pronounced hypokinesis of the anterolateral wall, anteroseptum. 5. Right ventricular systolic function is normal. 6. Left atrial chamber dimension is moderately enlarged. 7. There is mild aortic valve regurgitation. 8. There is mild to moderate mitral valve regurgitation. 9. There is small anterior pericardial effusion (2) Cardiomyopathy: Code(s): I42.9 - Cardiomyopathy, unspecified Status: Acute Assessment and Plan: Severe cardiomyopathy likely ischemic which could be the cause of recurrent VFib/V-tach -mild to moderate MVR -patient benefit from angiography given severe global hypokinesis of the anterolateral wall and anteroseptum -patient require GDMT for her cardiomyopathy, when she is off pressors and blood pressures tolerate -patient require a LifeVest on discharge prior to placement of a secondary prevention ICD (3) Shock: Code(s): R57.9 - Shock, unspecified Status: Acute Assessment and Plan: Patient presented with hypotension. Although she does have decubitus ulcer her WBC was normal and procalcitonin level is on the lower side Patient has decreased EF of 30-35% on last echo done in June 2023, hence it appears to be a multifactorial secondary to sepsis, hypovolemia, and cardiogenic -02/06: repeat echo as above shows EF of 20-25% Patient received adequate IV fluids, but unknown how long she was hypotensive. Off Levophed -02/04: Blood cultures negative x2 -02/05: Wound culture growing MRSA -02/07: Discontinue cefepime and Flagyl continue cefepime, Flagyl, -continue vancomycin (02/05) -TSH within normal limits -random cortisol was within normal limits -continue midodrine (4) Decubitus ulcer: Qualifiers: Pressure injury location: buttock Pressure injury stage: stage 2 Laterality: right Qualified Code(s): L89.312 - Pressure ulcer of right buttock, stage 2 Code(s): L89.90 - Pressure ulcer of unspecified site, unspecified stage Status: Acute Assessment and Plan: Evaluated by wound care nurses. Continue local wound care. Wound cultures and antibiotics as above (5) Diabetes type 2, controlled: Qualifiers: Diabetes mellitus roasterman insulin use: without senior living use Diabetes mellitus complication status: without complication Qualified Code(s): E11.9 - Type 2 diabetes mellitus without complications Code(s): E11.9 - Type 2 diabetes mellitus without complications Status: Acute Assessment and Plan: Sliding scale insulin and Accu-Chek (6) Electrolyte abnormality: Code(s): E87.8 - Other disorders of electrolyte and fluid balance, not elsewhere classified Status: Acute Assessment and Plan: Replace potassium, magnesium (7) Metabolic acidosis: Code(s): E87.20 - Acidosis, unspecified Status: Acute Assessment and Plan: Resolved Secondary to CRICKET. Due to hypotension and shock -off bicarb infusion (8) Acute kidney injury: Code(s): N17.9 - Acute kidney failure, unspecified Status: Acute Assessment and Plan: Presented with acute kidney injury and creatinine of 2.70 on admission CK level mildly elevated at 238 Likely secondary to hypotension and hypovolemia Will hold further IV fluids as patient has history of congestive heart failure Continue low-fat titration to maintain mean arterial pressure Monitor see urine output electrolytes and creatinine CT scan of the abdomen pelvis does not show any stone or hydronephrosis -urine output has been adequate a creatinine stable at 1.50 Plan DVT prophylaxis -continue Eliquis Stress ulcer prophylaxis -Protonix Nutrition -heart healthy diet Code Status: Patient wishes to be Full Code Total Critical Care Time: 32 Minutes Patient may transfer out of the ICU of [facility] with hospitalist 02/07: Discussed with with patient's POA Judi Valiente and updated her with patient's condition and plan of care. POA stated she will be discussing with the patient regarding a cardiac catheterization. Later in the day I discussed with Dr. Valiente who is patient's primary care physician, I updated him regarding the cardiac cath report, echocardiogram report, he stated that she has been having more cognitive decline/dementia. He will be talking to the POA and patient's niece in [place] regarding code status given her significant cardiomyopathy. Due to a high probability of clinically significant, life threatening deterioration, the patient required my highest level of preparedness to intervene emergently and I personally spent this critical care time directly and personally managing the patient. This critical care time included obtaining a history; examining the patient; pulse oximetry; ordering and review of studies; arranging urgent treatment with development of a management plan; evaluation of patient's response to treatment; frequent reassessment; and discussions with other providers. It was exclusive of separately billable procedures and treating other patients and teaching time. Please see Assessment and Plan section and the rest of the note for further information on patient assessment and treatment This dictation may have been done utilizing a voice recognition system. Attempts have been made to correct errors. However, there may be uncorrected grammatical, spelling, and recognitions errors present. Subjective Date/time seen: 02/11/24 10:36 Interval history: Reason for consult: Shock, recurrent VFib/V-tach, decubitus ulcer, acute kidney injury, metabolic acidosis, lactic acidosis 02/07: Cardiac cath showed non ischemic cardiomyopathy, no significant obstructive coronary artery disease, elevated LVEDP. Patient had difficulty breathing last night, was given Lasix 40 mg IV x1 02/11/2024: Patient seen and examined the ICU, is awake, alert, answers to questions appropriately and follows simple commands. Blood pressures are much improved, urine output has been low, creatinine is stable, denies any shortness of breath, chest pain, abdominal pain, nausea vomiting. States he feels better this morning Review of Systems Review of Systems: All systems reviewed & are unremarkable except as noted in HPI and below Exam Narrative: General: Old and frail female, is alert awake in no acute distress, kyphosis Lungs/Chest: Bilateral coarse breath sounds, rales at bases, no wheezing. Cardiac: Currently in sinus rhythm, S1-S2 is normal Circulation: Feet are warm, palpable pedal pulses Abdomen: Normal bowel sounds. Soft. Nontender, nondistended Extremities: No clubbing, cyanosis, mild pitting edema : Aleman in place Neurologic: Awake, alert, oriented to place and person and date of , follows simple commands in all extremities, able to carry out a conversation Skin: No Rash patient has decubitus ulcer Objective Data Vital Signs Vital Signs: Vital Signs - 24 hr 02/10/24 12:00 02/10/24 12:00 02/10/24 12:00 Temperature 98.4 F Pulse Rate 72 72 74 Respiratory Rate 17 Blood Pressure 94/67 L Pulse Oximetry 99 Oxygen Delivery Oxygen Flow Rate 02/10/24 14:00 02/10/24 14:00 02/10/24 16:00 Temperature 98.9 F Pulse Rate 66 66 82 Respiratory Rate 16 19 Blood Pressure 85/58 L 98/68 L Pulse Oximetry 100 100 Oxygen Delivery Oxygen Flow Rate 02/10/24 16:00 02/10/24 18:00 02/10/24 18:00 Temperature Pulse Rate 72 73 74 Respiratory Rate 18 Blood Pressure 100/74 Pulse Oximetry 100 Oxygen Delivery Oxygen Flow Rate 02/10/24 20:00 02/10/24 20:00 02/10/24 20:00 Temperature 97.4 F L Pulse Rate 80 80 80 Respiratory Rate 23 H 23 H Blood Pressure 108/72 Pulse Oximetry 100 100 Oxygen Delivery High Flow Nasal Cannula Oxygen Flow Rate 3 02/10/24 22:00 02/10/24 22:00 02/10/24 22:15 Temperature Pulse Rate 72 72 75 Respiratory Rate 21 H Blood Pressure 102/73 Pulse Oximetry 100 97 Oxygen Delivery Autopap Oxygen Flow Rate 02/11/24 00:00 02/11/24 00:00 02/11/24 00:00 Temperature Pulse Rate 62 62 62 Respiratory Rate 17 17 Blood Pressure 92/65 L Pulse Oximetry 98 98 Oxygen Delivery Autopap Oxygen Flow Rate 3 02/11/24 02:00 02/11/24 02:00 02/11/24 02:16 Temperature 98.2 F Pulse Rate 61 61 61 Respiratory Rate 18 Blood Pressure 93/68 L Pulse Oximetry 98 99 Oxygen Delivery Autopap Oxygen Flow Rate 02/11/24 04:00 02/11/24 04:00 02/11/24 04:00 Temperature 98.2 F Pulse Rate 61 61 Respiratory Rate 17 18 Blood Pressure 99/69 L Pulse Oximetry 98 100 Oxygen Delivery Autopap Oxygen Flow Rate 3 02/11/24 06:00 02/11/24 06:00 02/11/24 07:45 Temperature 98.2 F Pulse Rate 77 77 Respiratory Rate 18 Blood Pressure 114/86 Pulse Oximetry 100 100 Oxygen Delivery Nasal Cannula Oxygen Flow Rate 3 02/11/24 08:21 02/11/24 09:26 Temperature Pulse Rate 75 Respiratory Rate Blood Pressure Pulse Oximetry 100 Oxygen Delivery Nasal Cannula Oxygen Flow Rate 2 Intake/Output Intake/Output: Intake & Output 02/08/24 02/09/24 02/10/24 02/11/24 23:59 23:59 23:59 23:59 Intake Total 1898.3 1731.9 1500 200 Output Total 750 750 850 150 Balance 1148.3 981.9 650 50 Meds/Results Medications: Active Medications Generic Name Dose Route Start Last Admin Trade Name Freq PRN Reason Stop Dose Admin Albuterol 1 puff 02/05/24 23:39 Albuterol Sulfate (*Sp) Aerosol 1 Puff INHALATION Q4HRT PRN shortness of breath or wheezing Amiodarone HCl 200 mg 02/09/24 13:15 02/11/24 08:21 Amiodarone Hcl 200 Mg Tablet PO 200 mg DAILY@0800 KEATON Administration Anastrozole 1 mg 02/06/24 09:00 02/11/24 08:21 Anastrozole (*Chemo) 1 Mg Tablet PO 1 mg DAILY KEATON Administration Apixaban 5 mg 02/09/24 09:15 02/11/24 08:21 Apixaban 5 Mg Tablet PO 5 mg Q12HR KEATON Administration Aspirin 81 mg 02/07/24 09:55 02/11/24 08:20 Aspirin 81 Mg Enteric Tablet PO 81 mg QAM KEATON Administration Atorvastatin Calcium 20 mg 02/11/24 09:00 02/11/24 08:21 Atorvastatin 20 Mg Tablet PO 20 mg DAILY KEATON Administration Dextrose 12.5 gm 02/05/24 19:30 Dextrose 50% 25 Gm/50 Ml Syringe IV PUSH PRN PRN Hypoglycemia Protocol Glucagon 1 mg 02/05/24 19:30 Glucagon For Inj 1 Mg Vial IM PRN PRN Hypoglycemia Protocol Glucose 15 gm 02/05/24 19:30 Glucose Oral Gel 15 Gm Of Glucse In 37.5 Gm Tube PO PRN PRN Hypoglycemia Protocol Dextrose 1,000 mls @ 100 mls/hr 02/05/24 19:30 Dextrose 5% 1,000 Ml IVPB PRN PRN Hypoglycemia Protocol Vancomycin HCl 1,250 mg in 250 mls @ 166.667 mls/hr 02/11/24 08:00 Vancomycin 1,250 Mg/Ns 250 Ml IVPB 02/11/24 23:59 Q36H [facility] Insulin Aspart 4 - 8 units 02/06/24 08:00 02/11/24 08:21 Insulin Aspart (*Bkc) 100 Units/Ml SUB-Q Not Given TIDWM [facility] Protocol Levothyroxine Sodium 112 mcg 02/06/24 06:30 02/11/24 05:52 Levothyroxine Sodium 112 Mcg Tablet PO 112 mcg DAILY@0630 KEATON Administration Midodrine 10 mg 02/06/24 09:00 02/11/24 08:20 Midodrine Hcl 10 Mg Tablet PO 10 mg TID KEATON Administration Ondansetron HCl 4 mg 02/09/24 04:25 02/09/24 04:15 Ondansetron Inj 4 Mg/2 Ml Vial IV PUSH 4 mg Q6H PRN Administration Nausea And Vomiting Pantoprazole Sodium 40 mg 02/05/24 19:35 02/11/24 08:20 Pantoprazole Sodium Iv 40 Mg Vial IV PUSH 40 mg QAM KEATON Administration Sodium Bicarbonate 650 mg 02/06/24 09:00 02/11/24 08:21 Sodium Bicarbonate Tab 650 Mg Tablet PO 650 mg BID KEATON Administration Sodium Chloride 10 ml 02/05/24 22:00 02/11/24 05:52 Central Line Flush IV PUSH 10 ml Q8HR KEATON Administration Sodium Chloride 20 ml 02/05/24 18:52 Central Line Flush IV PUSH PRN PRN after blood draws Radiology Results: ITS Impressions Abdomen/Pelvis CT 02/05/24 16:21 IMPRESSION: Mild cardiomegaly, coronary atherosclerosis Probable prior left thoracotomy Status post cholecystectomy Suggestion of decubitus ulcer and underlying inflammation capsularis and/or pulmonary edema of the medial right buttock Extensive degenerative changes of the thoracic and lumbar spine and the hips, especially the left hip ADDENDUM: 02/05/24 1804 Correction: IMPRESSIONS: Suggestion of decubitus ulcer and underlying inflammation/cellulitis and or subcutaneous edema of the medial right buttock Chest X-Ray 02/11/24 08:50 IMPRESSION: 1. Cardiomegaly with pulmonary vascular congestion but improvement in prior pulmonary edema. 2. Increased small bilateral pleural effusions with associated atelectasis versus pneumonia in the bilateral lower lung zones. Labs Labs: Laboratory Results - last 24 hr 02/10/24 02/10/24 02/10/24 12:02 17:00 21:16 WBC RBC Hgb Hct MCV MCH MCHC RDW Plt Count MPV Immature Gran % (Auto) Neut % (Auto) Lymph % (Auto) [place] % (Auto) Eos % (Auto) Baso % (Auto) Lymph # (Auto) [place] # (Auto) Eos # (Auto) Baso # (Auto) Abs Immat Gran (auto) Absolute Neuts (auto) Absolute Nucleated RBC Nucleated RBC % Sodium Potassium Chloride Carbon Dioxide Anion Gap BUN Creatinine Estim Creat Clear Calc Estimated GFR Glucose POC Capillary Glucose 131 H 141 H Calcium Phosphorus Magnesium Total Bilirubin AST ALT Alkaline Phosphatase Total Protein Albumin Vancomycin Trough 23.0 H 02/11/24 02/11/24 05:46 08:20 WBC 4.0 L RBC 3.21 L Hgb 9.3 L Hct 29.1 L MCV 90.7 MCH 29.0 MCHC 32.0 RDW 15.2 H Plt Count 217 MPV 10.4 Immature Gran % (Auto) 2.0 H Neut % (Auto) 61.8 Lymph % (Auto) 20.4 [place] % (Auto) 11.3 H Eos % (Auto) 4.0 Baso % (Auto) 0.5 Lymph # (Auto) 0.81 L [place] # (Auto) 0.5 Eos # (Auto) 0.2 Baso # (Auto) 0.0 Abs Immat Gran (auto) 0.08 H Absolute Neuts (auto) 2.5 Absolute Nucleated RBC 0.040 H Nucleated RBC % 1.0 H Sodium 136 L Potassium 3.8 Chloride 101 Carbon Dioxide 32 H Anion Gap 3 L BUN 21 H Creatinine 1.50 H Estim Creat Clear Calc 33 Estimated GFR 34 L Glucose 115 H POC Capillary Glucose 114 H Calcium 9.0 Phosphorus 2.6 Magnesium 1.8 Total Bilirubin 0.5 AST 29 ALT 21 Alkaline Phosphatase 49 Total Protein 5.0 L Albumin 3.7 Vancomycin Trough Quality VTE Prophylaxis VTE prophylaxis: mechanical ordered and pharmacologic ordered
[2024-02-11 12:17] LABS: Glucose Point of Care 180 mg/dl (65-105)
--- NOTE | 2024-02-11 14:47 | P.PNIM_ITS ---
Progress Note: A&P Assessment and Plan (1) Cardiac arrest: Code(s): I46.9 - Cardiac arrest, cause unspecified Status: Acute Assessment and Plan: Cardiac arrest V-tach/VFib, multiple episodes of V-tach. -patient has been switched to p.o. amiodarone and patient on p.o. apixaban -cardiology following -patient was premedicated for contrast allergy prior to cardiac catheterization -02/07: Coronary angiogram showed no significant obstructive coronary artery disease, nonischemic cardiomyopathy, elevated LVEDP. According the medical laboratory technicians, likely Takotsubo's cardiomyopathy -02/07/2024: Echocardiogram Summary 1. Left ventricular chamber dimension is moderately enlarged. 2. There is mildly increased left ventricular wall thickness. 3. Left ventricular systolic function is severely reduced, estimated at 20-25%. 4. Severe global hypokinesis with more pronounced hypokinesis of the anterolateral wall, anteroseptum. 5. Right ventricular systolic function is normal. 6. Left atrial chamber dimension is moderately enlarged. 7. There is mild aortic valve regurgitation. 8. There is mild to moderate mitral valve regurgitation. 9. There is small anterior pericardial effusion (2) Cardiomyopathy: Code(s): I42.9 - Cardiomyopathy, unspecified Status: Acute Assessment and Plan: Severe cardiomyopathy likely ischemic which could be the cause of recurrent VFib/V-tach -mild to moderate MVR -patient benefit from angiography given severe global hypokinesis of the anterolateral wall and anteroseptum -patient require GDMT for her cardiomyopathy, when she is off pressors and blood pressures tolerate -patient require a LifeVest on discharge prior to placement of a secondary prevention ICD (3) Shock: Code(s): R57.9 - Shock, unspecified Status: Acute Assessment and Plan: Patient presented with hypotension. Although she does have decubitus ulcer her WBC was normal and procalcitonin level is on the lower side Patient has decreased EF of 30-35% on last echo done in June 2023, hence it appears to be a multifactorial secondary to sepsis, hypovolemia, and cardiogenic -02/06: repeat echo as above shows EF of 20-25% Patient received adequate IV fluids, but unknown how long she was hypotensive. Off Levophed -02/04: Blood cultures negative x2 -02/05: Wound culture growing MRSA -02/07: Discontinue cefepime and Flagyl continue cefepime, Flagyl, -continue vancomycin (02/05) -TSH within normal limits -random cortisol was within normal limits -continue midodrine (4) Decubitus ulcer: Qualifiers: Pressure injury location: buttock Pressure injury stage: stage 2 [place] ter[place]: right Qualified Code(s): L89.312 - Pressure ulcer of right buttock, stage 2 Code(s): L89.90 - Pressure ulcer of unspecified site, unspecified stage Status: Acute Assessment and Plan: Evaluated by wound care nurses. Continue local wound care. Wound cultures and antibiotics as above total abx of 14 days, 07/11 (5) Diabetes type 2, controlled: Qualifiers: Diabetes mellitus prison insulin use: without prison use Diabetes mellitus complication status: without complication Qualified Code(s): E11.9 - Type 2 diabetes mellitus without complications Code(s): E11.9 - Type 2 diabetes mellitus without complications Status: Acute Assessment and Plan: Sliding scale insulin and Accu-Chek (6) Electrolyte abnormality: Code(s): E87.8 - Other disorders of electrolyte and fluid balance, not elsewhere classified Status: Acute Assessment and Plan: Replace potassium, magnesium (7) Metabolic acidosis: Code(s): E87.20 - Acidosis, unspecified Status: Acute Assessment and Plan: Resolved Secondary to CRICKET. Due to hypotension and shock -off bicarb infusion (8) Acute kidney injury: Code(s): N17.9 - Acute kidney failure, unspecified Status: Acute Assessment and Plan: Presented with acute kidney injury and creatinine of 2.70 on admission CK level mildly elevated at 238 Likely secondary to hypotension and hypovolemia S/p IVF Cr 1.6 monitor Plan DVT prophylaxis -continue Eliquis Stress ulcer prophylaxis -Protonix Nutrition -heart healthy diet Code Status: Patient wishes to be Full Code Awaiting PT /OT for discharged planning Subjective Date/time seen: 02/11/24 14:47 Interval history: Patient comfortable at bedside PT/OT consulted for discharge planning Cardiology planning on Lifevest Review of Systems Review of Systems: All systems reviewed & are unremarkable except as noted in HPI and below Exam Narrative: General: Old and frail female, is alert awake in no acute distress, kyphosis Lungs/Chest: Bilateral coarse breath sounds, rales at bases, no wheezing. Cardiac: Currently in sinus rhythm, S1-S2 is normal Circulation: Feet are warm, palpable pedal pulses Abdomen: Normal bowel sounds. Soft. Nontender, nondistended Extremities: No clubbing, cyanosis, mild pitting edema : Aleman in place Neurologic: Awake, alert, oriented to place and person and date of , follows simple commands in all extremities, able to carry out a conversation Skin: No Rash patient has decubitus ulcer Const: General: comfortable and no acute distress Other: , female, obese body habitus, nontoxic appearance HENMT: Face/Nose/Sinus: Normal nares present Mouth: Yes moist mucous membranes Eyes: General: appearance normal, both eyes and all related structures Sclera: sclerae normal Pupils: Equal, round and reactive pupils present EOM: EOMs intact bilaterally Resp: Effort & Inspection: normal respiratory effort Auscultation: clear to auscultation bilaterally Cardio: Rate: regular rate Rhythm: regular rhythm Other: S1-S2 present without murmur, rub, ectopy GI: Other: Sets abdomen rounded, soft, nontender. Normoactive bowel sounds in all quadrants. Skin: General skin exam: normal color, no rashes or lesions noted and wounds noted Wounds: wounds noted Other: shallow wound to posterior thigh just distal to the gluteal fold is approximately 3 x 1 and 0.5 cm with yellow to sanguinous drainage, scant to moderate. Mild erythema surrounding and mild tenderness. Second wound to right buttock measuring approximately 1.5 cm by 0.5 cm with red wound base, scant sanguinous drainage. Malodorous. Neuro: Cranial nerves: Yes Equal, round and reactive pupils present Speech: normal speech Motor exam (neuro): 5/5 motor strength present throughout Sensory Exam: normal sensation Other: A&O x4 Extrem: Other: 1+ nonpitting edema to bilateral lower e xtremities, symmetric. Psych: Mental Status: mental status grossly normal Affect: normal affect Other: Good insight and judgment, pleasant. Objective Data Vital Signs Vital Signs: Vital Signs - 24 hr 02/10/24 16:00 02/10/24 16:00 02/10/24 18:00 Temperature 98.9 F Pulse Rate 82 72 73 Respiratory Rate 19 18 Blood Pressure 98/68 L 100/74 Pulse Oximetry 100 100 Oxygen Delivery Oxygen Flow Rate 02/10/24 18:00 02/10/24 20:00 02/10/24 20:00 Temperature 97.4 F L Pulse Rate 74 80 80 Respiratory Rate 23 H Blood Pressure 108/72 Pulse Oximetry 100 Oxygen Delivery Oxygen Flow Rate 02/10/24 20:00 02/10/24 22:00 02/10/24 22:00 Temperature Pulse Rate 80 72 72 Respiratory Rate 23 H 21 H Blood Pressure 102/73 Pulse Oximetry 100 100 Oxygen Delivery High Flow Nasal Cannula Oxygen Flow Rate 3 02/10/24 22:15 02/11/24 00:00 02/11/24 00:00 Temperature Pulse Rate 75 62 62 Respiratory Rate 17 Blood Pressure Pulse Oximetry 97 98 Oxygen Delivery Autopap Autopap Oxygen Flow Rate 3 02/11/24 00:00 02/11/24 02:00 02/11/24 02:00 Temperature 98.2 F Pulse Rate 62 61 61 Respiratory Rate 17 18 Blood Pressure 92/65 L 93/68 L Pulse Oximetry 98 98 Oxygen Delivery Oxygen Flow Rate 02/11/24 02:16 02/11/24 04:00 02/11/24 04:00 Temperature 98.2 F Pulse Rate 61 61 61 Respiratory Rate 17 Blood Pressure 99/69 L Pulse Oximetry 99 98 Oxygen Delivery Autopap Oxygen Flow Rate 02/11/24 04:00 02/11/24 06:00 02/11/24 06:00 Temperature 98.2 F Pulse Rate 77 77 Respiratory Rate 18 18 Blood Pressure 114/86 Pulse Oximetry 100 100 Oxygen Delivery Autopap Oxygen Flow Rate 3 02/11/24 07:45 02/11/24 08:00 02/11/24 08:00 Temperature 98.4 F Pulse Rate 68 Respiratory Rate 17 Blood Pressure 102/79 Pulse Oximetry 100 100 100 Oxygen Delivery Nasal Cannula Nasal Cannula Oxygen Flow Rate 3 2 02/11/24 08:21 02/11/24 09:26 02/11/24 10:00 Temperature 98.5 F Pulse Rate 75 80 Respiratory Rate 15 Blood Pressure 100/66 Pulse Oximetry 100 99 Oxygen Delivery Nasal Cannula Oxygen Flow Rate 2 02/11/24 12:00 02/11/24 12:00 02/11/24 12:58 Temperature 99.3 F Pulse Rate 94 Respiratory Rate 20 Blood Pressure 115/73 Pulse Oximetry 98 99 Oxygen Delivery Room Air Nasal Cannula Oxygen Flow Rate 4 Intake/Output Intake/Output: Intake & Output 12/11/24 02/09/24 02/10/24 02/11/24 23:59 23:59 23:59 23:59 Intake Total 1898.3 1731.9 1500 332 Output Total 750 750 850 150 Balance 1148.3 981.9 650 182 Meds/Results Medications: Active Medications Generic Name Dose Route Start Last Admin Trade Name Freq PRN Reason Stop Dose Admin Albuterol 1 puff 02/05/24 23:39 Albuterol Sulfate (*Sp) Aerosol 1 Puff INHALATION Q4HRT PRN shortness of breath or wheezing Amiodarone HCl 200 mg 02/09/24 13:15 02/11/24 08:21 Amiodarone Hcl 200 Mg Tablet PO 200 mg DAILY@0800 KEATON Administration Anastrozole 1 mg 02/06/24 09:00 02/11/24 08:21 Anastrozole (*Chemo) 1 Mg Tablet PO 1 mg DAILY KEATON Administration Apixaban 5 mg 02/09/24 09:15 02/11/24 08:21 Apixaban 5 Mg Tablet PO 5 mg Q12HR KEATON Administration Aspirin 81 mg 02/07/24 09:55 02/11/24 08:20 Aspirin 81 Mg Enteric Tablet PO 81 mg QAM KEATON Administration Atorvastatin Calcium 20 mg 02/11/24 09:00 02/11/24 08:21 Atorvastatin 20 Mg Tablet PO 20 mg DAILY KEATON Administration Dextrose 12.5 gm 02/05/24 19:30 Dextrose 50% 25 Gm/50 Ml Syringe IV PUSH PRN PRN Hypoglycemia Protocol Glucagon 1 mg 02/05/24 19:30 Glucagon For Inj 1 Mg Vial IM PRN PRN Hypoglycemia Protocol Glucose 15 gm 02/05/24 19:30 Glucose Oral Gel 15 Gm Of Glucse In 37.5 Gm Tube PO PRN PRN Hypoglycemia Protocol Dextrose 1,000 mls @ 100 mls/hr 02/05/24 19:30 Dextrose 5% 1,000 Ml IVPB PRN PRN Hypoglycemia Protocol Vancomycin HCl 1,250 mg in 250 mls @ 166.667 mls/hr 02/11/24 08:00 02/11/24 11:49 Vancomycin 1,250 Mg/Ns 250 Ml IVPB 02/11/24 23:59 Not Given Q36H [facility] Insulin Aspart 4 - 8 units 02/06/24 08:00 02/11/24 11:49 Insulin Aspart (*Bkc) 100 Units/Ml SUB-Q Not Given TIDWM [facility] Protocol Levothyroxine Sodium 112 mcg 02/06/24 06:30 02/11/24 05:52 Levothyroxine Sodium 112 Mcg Tablet PO 112 mcg DAILY@0630 KEATON Administration Midodrine 10 mg 02/06/24 09:00 02/11/24 12:06 Midodrine Hcl 10 Mg Tablet PO 10 mg TID KEATON Administration Ondansetron HCl 4 mg 02/09/24 04:25 02/09/24 04:15 Ondansetron Inj 4 Mg/2 Ml Vial IV PUSH 4 mg Q6H PRN Administration Nausea And Vomiting Pantoprazole Sodium 40 mg 02/05/24 19:35 02/11/24 08:20 Pantoprazole Sodium Iv 40 Mg Vial IV PUSH 40 mg QAM [facility] Administration Sodium Bicarbonate 650 mg 02/06/24 09:00 02/11/24 08:21 Sodium Bicarbonate Tab 650 Mg Tablet PO 650 mg BID KEATON Administration Radiology Results: ITS Impressions Abdomen/Pelvis CT 02/05/24 16:21 IMPRESSION: Mild cardiomegaly, coronary atherosclerosis Probable prior left thoracotomy Status post cholecystectomy Suggestion of decubitus ulcer and underlying inflammation capsularis and/or pulmonary edema of the medial right buttock Extensive degenerative changes of the thoracic and lumbar spine and the hips, especially the left hip ADDENDUM: 02/05/24 1804 Correction: IMPRESSIONS: Suggestion of decubitus ulcer and underlying inflammation/cellulitis and or subcutaneous edema of the medial right buttock Chest X-Ray 02/11/24 08:50 IMPRESSION: 1. Cardiomegaly with pulmonary vascular congestion but improvement in prior pulmonary edema. 2. Increased small bilateral pleural effusions with associated atelectasis versus pneumonia in the bilateral lower lung zones. Labs Labs: Laboratory Results - last 24 hr 02/10/24 02/10/24 02/11/24 17:00 21:16 05:46 WBC 4.0 L RBC 3.21 L Hgb 9.3 L Hct 29.1 L MCV 90.7 MCH 29.0 MCHC 32.0 RDW 15.2 H Plt Count 217 MPV 10.4 Immature Gran % (Auto) 2.0 H Neut % (Auto) 61.8 Lymph % (Auto) 20.4 [place] % (Auto) 11.3 H Eos % (Auto) 4.0 Baso % (Auto) 0.5 Lymph # (Auto) 0.81 L [place] # (Auto) 0.5 Eos # (Auto) 0.2 Baso # (Auto) 0.0 Abs Immat Gran (auto) 0.08 H Absolute Neuts (auto) 2.5 Absolute Nucleated RBC 0.040 H Nucleated RBC % 1.0 H Sodium 136 L Potassium 3.8 Chloride 101 Carbon Dioxide 32 H Anion Gap 3 L BUN 21 H Creatinine 1.50 H Estim Creat Clear Calc 33 Estimated GFR 34 L Glucose 115 H POC Capillary Glucose 141 H Calcium 9.0 Phosphorus 2.6 Magnesium 1.8 Total Bilirubin 0.5 AST 29 ALT 21 Alkaline Phosphatase 49 Total Protein 5.0 L Albumin 3.7 Vancomycin Trough 23.0 H 02/11/24 02/11/24 08:20 11:45 WBC RBC Hgb Hct MCV MCH MCHC RDW Plt Count MPV Immature Gran % (Auto) Neut % (Auto) Lymph % (Auto) [place] % (Auto) Eos % (Auto) Baso % (Auto) Lymph # (Auto) [place] # (Auto) Eos # (Auto) Baso # (Auto) Abs Immat Gran (auto) Absolute Neuts (auto) Absolute Nucleated RBC Nucleated RBC % Sodium Potassium Chloride Carbon Dioxide Anion Gap BUN Creatinine Estim Creat Clear Calc Estimated GFR Glucose POC Capillary Glucose 114 H 180 H Calcium Phosphorus Magnesium Total Bilirubin AST ALT Alkaline Phosphatase Total Protein Albumin Vancomycin Trough Quality VTE Prophylaxis VTE prophylaxis: mechanical ordered and pharmacologic ordered
[2024-02-11] MEDS: VANCOMYCIN 1,250 MG/NS 250 ML 1,250 MG/250 ML BAG 166.67 MG IVPB (16:03)
[2024-02-11 18:00] LABS: Glucose Point of Care 143 mg/dl (65-105)
[2024-02-11 20:54] LABS: MRSA (PCR) DETECTED (NOT DETECTE)
[2024-02-11] MEDS: MUPIROCIN 2% OINT 22 GM TUBE 1 APPLIC EACH NARE (21:27)
[2024-02-12] VITALS (17 sets, daily range): BP systolic 87–125; BP diastolic 58–80; PULSE 71–121; RESP 16–22; TEMP 36.4–37.1; O2SAT 16–100
[2024-02-12 01:57] LABS: Glucose Point of Care 154 mg/dl (65-105)
[2024-02-12 04:15] LABS: Basophils Percent Auto 0.8 % (0.2-1.2); Eosinophils Absolute Auto 0.2 K/mm3 (0-0.3); Eosinophils Percent Auto 4.7 % (0-4.4); Hematocrit 32.5 % (37.0-47.0); Hemoglobin 10.2 g/dL (12.0-15.0); Immature Granulocyte Percent A 1.9 % (0-0.5); Lymphocytes Absolute Auto 1.12 K/mm3 (0.9-3.2); Lymphocytes Percent Auto 21.8 % (18.3-44.2); Mean Corpuscular HGB Conc 31.4 g/dl (32-36); Mean Corpuscular Hemoglobin 28.6 pg (26-34); Mean Platelet Volume 10.5 fl (7.4-10.4); Monocytes Absolute Auto 0.7 K/mm3 (0.1-0.6); Monocytes Percent Auto 13.1 % (2.6-8.5); Neutrophils Percent Auto 57.7 % (45.5-73.1); Nucleated Red Blood Cells Perc 0.6 % (0.0-0.2); Platelet Count Result 251 k/mm3 (150-375); Red Blood Count 3.57 M/mm3 (4.2-5.4); Red Cell Distribution Width 15.2 % (11.5-14.5); White Blood Count 5.1 K/mm3 (4.5-10.0)
[2024-02-12 04:27] LABS: Alanine Aminotransferase 19 U/L (6-35); Albumin Level 3.4 g/dL (3.5-5.1); Alkaline Phosphatase 47 U/L (38-126); Anion Gap 4 mmol/L (4-12); Aspartate Amino Transferase 29 U/L (14-36); Bilirubin,Total 0.4 mg/dL (0.2-1.3); Blood Urea Nitrogen 23 mg/dL (7-17); Calcium 9.1 mg/dL (8.4-10.2); Carbon Dioxide 31 mmol/L (22-30); Chloride 102 mmol/L (98-107); Estimated CRCL calculation 36 ml/min; Estimated Glomerular Filt Rate 37; Glucose 118 mg/dL (65-110); Magnesium 1.9 mg/dL (1.6-2.3); Potassium 4.3 mmol/L (3.4-5.0); Sodium 137 mmol/L (137-145)
--- NOTE | 2024-02-12 04:31 | PC.NURSE ---
Patient handed off to Reena Werner RN at 0093.
[2024-02-12] MEDS: LEVOTHYROXINE SODIUM 112 MCG TABLET PO (06:20)
[2024-02-12] MEDS: SODIUM BICARBONATE TAB 650 MG TABLET PO ×2 (09:17→17:31)
[2024-02-12] MEDS: AMIODARONE HCL 200 MG TABLET PO (09:17)
[2024-02-12] MEDS: ASPIRIN 81 MG ENTERIC TABLET PO (09:17)
[2024-02-12] MEDS: ATORVASTATIN 20 MG TABLET PO (09:17)
[2024-02-12] MEDS: APIXABAN 5 MG TABLET PO ×2 (09:17→22:22)
[2024-02-12] MEDS: MIDODRINE HCL 10 MG TABLET PO ×3 (09:17→17:31)
[2024-02-12] MEDS: PANTOPRAZOLE SODIUM IV 40 MG VIAL IV PUSH (09:18)
[2024-02-12] MEDS: ANASTROZOLE (*CHEMO) 1 MG TABLET PO (09:18)
[2024-02-12] MEDS: MUPIROCIN 2% OINT 22 GM TUBE 1 APPLIC EACH NARE ×2 (09:18→22:23)
[2024-02-12 09:40] LABS: Glucose Point of Care 121 mg/dl (65-105)
[2024-02-12 11:37] LABS: Glucose Point of Care 169 mg/dl (65-105)
--- NOTE | 2024-02-12 11:47 | PM.IMPN ---
Progress Note: A&P Assessment and Plan (1) Cardiac arrest: Code(s): I46.9 - Cardiac arrest, cause unspecified Status: Acute Assessment and Plan: Cardiac arrest V-tach/VFib, multiple episodes of V-tach. -patient has been switched to p.o. amiodarone and patient on p.o. apixaban -cardiology following -patient was premedicated for contrast allergy prior to cardiac catheterization -02/07: Coronary angiogram showed no significant obstructive coronary artery disease, nonischemic cardiomyopathy, elevated LVEDP. 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 Left ventricular chamber dimension is moderately enlarged. 2. There is mildly increased left ventricular wall thickness. 3. Left ventricular systolic function is severely reduced, estimated at 20-25%. 4. Severe global hypokinesis with more pronounced hypokinesis of the anterolateral wall, anteroseptum. 5. Right ventricular systolic function is normal. 6. Left atrial chamber dimension is moderately enlarged. 7. There is mild aortic valve regurgitation. 8. There is mild to moderate mitral valve regurgitation. 9. There is small anterior pericardial effusion (2) Cardiomyopathy: Code(s): I42.9 - Cardiomyopathy, unspecified Status: Acute Assessment and Plan: Severe cardiomyopathy likely ischemic which could be the cause of recurrent VFib/V-tach -mild to moderate MVR -patient benefit from angiography given severe global hypokinesis of the anterolateral wall and anteroseptum -patient require GDMT for her cardiomyopathy, when she is off pressors and blood pressures tolerate -patient require a LifeVest on discharge prior to placement of a secondary prevention ICD (3) Shock: Code(s): R57.9 - Shock, unspecified Status: Acute Assessment and Plan: Patient presented with hypotension. Although she does have decubitus ulcer her WBC was normal and procalcitonin level is on the lower side Patient has decreased EF of 30-35% on last echo done in June 2023, hence it appears to be a multifactorial secondary to sepsis, hypovolemia, and cardiogenic -02/06: repeat echo as above shows EF of 20-25% Patient received adequate IV fluids, but unknown how long she was hypotensive. Off Levophed -02/04: Blood cultures negative x2 -02/05: Wound culture growing MRSA -02/07: Discontinue cefepime and Flagyl continue cefepime, Flagyl, -continue vancomycin (02/05) -TSH within normal limits -random cortisol was within normal limits -continue midodrine (4) Decubitus ulcer: Qualifiers: Pressure injury location: buttock Pressure injury stage: stage 2 Laterality: right Qualified Code(s): L89.312 - Pressure ulcer of right buttock, stage 2 Code(s): L89.90 - Pressure ulcer of unspecified site, unspecified stage Status: Acute Assessment and Plan: Evaluated by wound care nurses. Continue local wound care. 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 Due to hypotension and shock -off bicarb infusion (8) Acute kidney injury: Code(s): N17.9 - Acute kidney failure, unspecified Status: Acute Assessment and Plan: Presented with acute kidney injury and creatinine of 2.70 on admission CK level mildly elevated at 238 Likely secondary to hypotension and hypovolemia S/p IVF Cr 1.4 monitor Plan DVT prophylaxis -continue Eliquis Stress ulcer prophylaxis -Protonix Nutrition -heart healthy diet Code Status: Patient wishes to be Full Code Awaiting SNF discharge per PT/OT eval Subjective Date/time seen: 02/12/24 11:47 Interval history: Patient comfortable at bedside PT/OT recommending SNF discharge Cardiology planning on Lifevest Review of Systems Review of Systems: All systems reviewed & are unremarkable except as noted in HPI and below Exam Narrative: General: Old and frail female, is alert awake in no acute distress, kyphosis Lungs/Chest: Bilateral coarse breath sounds, rales at bases, no wheezing. Cardiac: Currently in sinus rhythm, S1-S2 is normal Circulation: Feet are warm, palpable pedal pulses Abdomen: Normal bowel sounds. Soft. Nontender, nondistended Extremities: No clubbing, cyanosis, mild pitting edema : Aleman in place Neurologic: Awake, alert, oriented to place and person and date of , follows simple commands in all extremities, able to carry out a conversation Skin: No Rash patient has decubitus ulcer Const: General: comfortable and no acute distress Other: , female, obese body habitus, nontoxic appearance HENMT: Face/Nose/Sinus: Normal nares present Mouth: Yes moist mucous membranes Eyes: General: appearance normal, both eyes and all related structures Sclera: sclerae normal Pupils: Equal, round and reactive pupils present EOM: EOMs intact bilaterally Resp: Effort & Inspection: normal respiratory effort Auscultation: clear to auscultation bilaterally Cardio: Rate: regular rate Rhythm: regular rhythm Other: S1-S2 present without murmur, rub, ectopy GI: Other: Sets abdomen rounded, soft, nontender. Normoactive bowel sounds in all quadrants. Skin: General skin exam: normal color, no rashes or lesions noted and wounds noted Wounds: wounds noted Other: shallow wound to posterior thigh just distal to the gluteal fold is approximately 3 x 1 and 0.5 cm with yellow to sanguinous drainage, scant to moderate. Mild erythema surrounding and mild tenderness. Second wound to right buttock measuring approximately 1.5 cm by 0.5 cm with red wound base, scant sanguinous drainage. Malodorous. Neuro: Cranial nerves: Yes Equal, round and reactive pupils present Speech: normal speech Motor exam (neuro): 5/5 motor strength present throughout Sensory Exam: normal sensation Other: A&O x4 Extrem: Other: 1+ nonpitting edema to bilateral lower extremities, symmetric. Psych: Mental Status: mental status grossly normal Affect: normal affect Other: Good insight and judgment, pleasant. Objective Data Vital Signs Vital Signs: Vital Signs - 24 hr 02/11/24 12:00 02/11/24 12:00 02/11/24 12:00 Temperature 99.3 F Pulse Rate 94 92 Respiratory Rate 20 Blood Pressure 115/73 Pulse Oximetry 98 99 Oxygen Delivery Room Air Oxygen Flow Rate 02/11/24 12:58 02/11/24 14:00 02/11/24 14:00 Temperature 99.6 F Pulse Rate 84 82 Respiratory Rate 20 Blood Pressure 107/77 Pulse Oximetry 99 Oxygen Delivery Nasal Cannula Oxygen Flow Rate 4 02/11/24 16:00 02/11/24 16:00 02/11/24 16:00 Temperature 99.1 F Pulse Rate 81 80 Respiratory Rate 19 Blood Pressure 120/99 H Pulse Oximetry 99 100 Oxygen Delivery Nasal Cannula Oxygen Flow Rate 2 02/11/24 18:00 02/11/24 18:00 02/11/24 20:00 Temperature 98.9 F 99.0 F Pulse Rate 78 76 81 Respiratory Rate 17 17 Blood Pressure 97/75 L 110/76 Pulse Oximetry 100 99 Oxygen Delivery Oxygen Flow Rate 02/11/24 21:00 02/11/24 21:00 02/11/24 22:00 Temperature Pulse Rate 80 79 Respiratory Rate Blood Pressure Pulse Oximetry 99 Oxygen Delivery Nasal Cannula Oxygen Flow Rate 2 02/11/24 22:00 02/12/24 00:00 02/12/24 00:00 Temperature 98.6 F Pulse Rate 79 71 Respiratory Rate 18 Blood Pressure 94/64 L Pulse Oximetry 97 100 Oxygen Delivery Nasal Cannula Oxygen Flow Rate 2 02/12/24 00:00 02/12/24 02:00 02/12/24 02:00 Temperature 98.4 F Pulse Rate 71 81 81 Respiratory Rate 17 17 Blood Pressure 90/62 L 102/75 Pulse Oximetry 100 99 Oxygen Delivery Oxygen Flow Rate 02/12/24 04:00 02/12/24 04:00 02/12/24 06:00 Temperature 98.4 F 98.4 F Pulse Rate 75 76 76 Respiratory Rate 16 16 Blood Pressure 99/80 L 87/65 L Pulse Oximetry 16 L 99 Oxygen Delivery Oxygen Flow Rate 02/12/24 06:00 02/12/24 08:00 02/12/24 08:55 Temperature 98.5 F Pulse Rate 75 72 Respiratory Rate 16 Blood Pressure 101/68 Pulse Oximetry 99 Oxygen Delivery Nasal Cannula Oxygen Flow Rate 2 02/12/24 09:17 Temperature Pulse Rate 98 Respiratory Rate Blood Pressure Pulse Oximetry Oxygen Delivery Oxygen Flow Rate Intake/Output Intake/Output: Intake & Output 02/09/24 02/10/24 02/11/24 02/12/24 23:59 23:59 23:59 23:59 Intake Total 1731.9 1500 642 208 Output Total 750 850 350 100 Balance 981.9 650 292 108 Meds/Results Medications: Active Medications Generic Name Dose Route Start Last Admin Trade Name Freq PRN Reason Stop Dose Admin Albuterol 1 puff 02/05/24 23:39 Albuterol Sulfate (*Sp) Aerosol 1 Puff INHALATION Q4HRT PRN shortness of breath or wheezing Amiodarone HCl 200 mg 02/09/24 13:15 02/12/24 09:17 Amiodarone Hcl 200 Mg Tablet PO 200 mg DAILY@0800 KEATON Administration Anastrozole 1 mg 02/06/24 09:00 02/12/24 09:18 Anastrozole (*Chemo) 1 Mg Tablet PO 1 mg DAILY KEATON Administration Apixaban 5 mg 02/09/24 09:15 02/12/24 09:17 Apixaban 5 Mg Tablet PO 5 mg Q12HR KEATON Administration Aspirin 81 mg 02/07/24 09:55 02/12/24 09:17 Aspirin 81 Mg Enteric Tablet PO 81 mg QAM KEATON Administration Atorvastatin Calcium 20 mg 02/11/24 09:00 02/12/24 09:17 Atorvastatin 20 Mg Tablet PO 20 mg DAILY KEATON Administration Dextrose 12.5 gm 02/05/24 19:30 Dextrose 50% 25 Gm/50 Ml Syringe IV PUSH PRN PRN Hypoglycemia Protocol Glucagon 1 mg 02/05/24 19:30 Glucagon For Inj 1 Mg Vial IM PRN PRN Hypoglycemia Protocol Glucose 15 gm 02/05/24 19:30 Glucose Oral Gel 15 Gm Of Glucse In 37.5 Gm Tube PO PRN PRN Hypoglycemia Protocol Dextrose 1,000 mls @ 100 mls/hr 02/05/24 19:30 Dextrose 5% 1,000 Ml IVPB PRN PRN Hypoglycemia Protocol Vancomycin HCl 1,250 mg in 250 mls @ 166.667 mls/hr 02/11/24 16:00 02/11/24 16:03 Vancomycin 1,250 Mg/Ns 250 Ml IVPB 166.67 mls/hr Q36H KEATON Administration Insulin Aspart 4 - 8 units 02/06/24 08:00 02/12/24 11:30 Insulin Aspart (*Bkc) 100 Units/Ml SUB-Q Not Given TIDWM [facility] Protocol Levothyroxine Sodium 112 mcg 02/06/24 06:30 02/12/24 06:20 Levothyroxine Sodium 112 Mcg Tablet PO 112 mcg DAILY@0630 KEATON Administration Midodrine 10 mg 02/06/24 09:00 02/12/24 09:17 Midodrine Hcl 10 Mg Tablet PO 10 mg TID KEATON Administration Mupirocin 1 applic 02/11/24 21:20 02/12/24 09:18 Mupirocin 2% Oint 22 Gm Tube EACH NARE 02/16/24 09:01 1 applic Q12HR KEATON Administration Ondansetron HCl 4 mg 02/09/24 04:25 02/09/24 04:15 Ondansetron Inj 4 Mg/2 Ml Vial IV PUSH 4 mg Q6H PRN Administration Nausea And Vomiting Pantoprazole Sodium 40 mg 02/05/24 19:35 02/12/24 09:18 Pantoprazole Sodium Iv 40 Mg Vial IV PUSH 40 mg QAM KEATON Administration Sodium Bicarbonate 650 mg 02/06/24 09:00 02/12/24 09:17 Sodium Bicarbonate Tab 650 Mg Tablet PO 650 mg BID KEATON Administration Radiology Results: ITS Impressions Abdomen/Pelvis CT 02/05/24 16:21 IMPRESSION: Mild cardiomegaly, coronary atherosclerosis Probable prior left thoracotomy Status post cholecystectomy Suggestion of decubitus ulcer and underlying inflammation capsularis and/or pulmonary edema of the medial right buttock Extensive degenerative changes of the thoracic and lumbar spine and the hips, especially the left hip ADDENDUM: 02/05/24 1804 Correction: IMPRESSIONS: Suggestion of decubitus ulcer and underlying inflammation/cellulitis and or subcutaneous edema of the medial right buttock Chest X-Ray 02/11/24 08:50 IMPRESSION: 1. Cardiomegaly with pulmonary vascular congestion but improvement in prior pulmonary edema. 2. Increased small bilateral pleural effusions with associated atelectasis versus pneumonia in the bilateral lower lung zones. Labs Labs: Laboratory Results - last 24 hr 02/11/24 02/11/24 02/11/24 11:45 17:39 19:20 WBC RBC Hgb Hct MCV MCH MCHC RDW Plt Count MPV Immature Gran % (Auto) Neut % (Auto) Lymph % (Auto) [place] % (Auto) Eos % (Auto) Baso % (Auto) Lymph # (Auto) [place] # (Auto) Eos # (Auto) Baso # (Auto) Abs Immat Gran (auto) Absolute Neuts (auto) Absolute Nucleated RBC Nucleated RBC % Sodium Potassium Chloride Carbon Dioxide Anion Gap BUN Creatinine Estim Creat Clear Calc Estimated GFR Glucose POC Capillary Glucose 180 H 143 H Calcium Magnesium Total Bilirubin AST ALT Alkaline Phosphatase Total Protein Albumin Nasal MRSA (PCR) Detected A* 02/11/24 02/12/24 02/12/24 21:34 03:57 08:42 WBC 5.1 RBC 3.57 L Hgb 10.2 L Hct 32.5 L MCV 91.0 MCH 28.6 MCHC 31.4 L RDW 15.2 H Plt Count 251 MPV 10.5 H Immature Gran % (Auto) 1.9 H Neut % (Auto) 57.7 Lymph % (Auto) 21.8 [place] % (Auto) 13.1 H Eos % (Auto) 4.7 H Baso % (Auto) 0.8 Lymph # (Auto) 1.12 [place] # (Auto) 0.7 H Eos # (Auto) 0.2 Baso # (Auto) 0.0 Abs Immat Gran (auto) 0.10 H Absolute Neuts (auto) 3.0 Absolute Nucleated RBC 0.030 H Nucleated RBC % 0.6 H Sodium 137 Potassium 4.3 Chloride 102 Carbon Dioxide 31 H Anion Gap 4 BUN 23 H Creatinine 1.40 H Estim Creat Clear Calc 36 Estimated GFR 37 L Glucose 118 H POC Capillary Glucose 154 H 121 H Calcium 9.1 Magnesium 1.9 Total Bilirubin 0.4 AST 29 ALT 19 Alkaline Phosphatase 47 Total Protein 5.0 L Albumin 3.4 L Nasal MRSA (PCR) 02/12/24 11:29 WBC RBC Hgb Hct MCV MCH MCHC RDW Plt Count MPV Immature Gran % (Auto) Neut % (Auto) Lymph % (Auto) [place] % (Auto) Eos % (Auto) Baso % (Auto) Lymph # (Auto) [place] # (Auto) Eos # (Auto) Baso # (Auto) Abs Immat Gran (auto) Absolute Neuts (auto) Absolute Nucleated RBC Nucleated RBC % Sodium Potassium Chloride Carbon Dioxide Anion Gap BUN Creatinine Estim Creat Clear Calc Estimated GFR Glucose POC Capillary Glucose 169 H Calcium Magnesium Total Bilirubin AST ALT Alkaline Phosphatase Total Protein Albumin Nasal MRSA (PCR) Quality VTE Prophylaxis VTE prophylaxis: mechanical ordered and pharmacologic ordered
--- NOTE | 2024-02-12 15:15 | PC.NURSE ---
Patient transferred to IMU room 232. Bedside report given to TERELL Aburto. All belongings sent with patient to receiving unit.
[2024-02-12 16:10] LABS: Glucose Point of Care 201 mg/dl (65-105)
[2024-02-12 20:17] LABS: Glucose Point of Care 154 mg/dl (65-105)
[2024-02-13] VITALS (19 sets, daily range): BP systolic 105–120; BP diastolic 47–87; PULSE 71–91; RESP 16–22; TEMP 36.3–36.8; O2SAT 87–97
[2024-02-13 03:17] LABS: Basophils Percent Auto 0.4 % (0.2-1.2); Eosinophils Absolute Auto 0.2 K/mm3 (0-0.3); Eosinophils Percent Auto 3.9 % (0-4.4); Hematocrit 31.1 % (37.0-47.0); Immature Granulocyte Percent A 1.9 % (0-0.5); Lymphocytes Absolute Auto 1.56 K/mm3 (0.9-3.2); Lymphocytes Percent Auto 29.1 % (18.3-44.2); Mean Corpuscular HGB Conc 32.2 g/dl (32-36); Mean Corpuscular Hemoglobin 28.8 pg (26-34); Mean Corpuscular Volume 89.6 fl (80-100); Mean Platelet Volume 10.1 fl (7.4-10.4); Monocytes Absolute Auto 0.8 K/mm3 (0.1-0.6); Monocytes Percent Auto 14.4 % (2.6-8.5); Neutrophils Absolute Auto 2.7 K/mm3 (1.3-6.7); Neutrophils Percent Auto 50.3 % (45.5-73.1); Nucleated Red Blood Cells Perc 0.4 % (0.0-0.2); Platelet Count Result 258 k/mm3 (150-375); Red Blood Count 3.47 M/mm3 (4.2-5.4); Red Cell Distribution Width 15.2 % (11.5-14.5); White Blood Count 5.4 K/mm3 (4.5-10.0)
[2024-02-13 03:25] LABS: Alanine Aminotransferase 17 U/L (6-35); Albumin Level 3.4 g/dL (3.5-5.1); Alkaline Phosphatase 52 U/L (38-126); Anion Gap 1 mmol/L (4-12); Aspartate Amino Transferase 26 U/L (14-36); Bilirubin,Total 0.5 mg/dL (0.2-1.3); Blood Urea Nitrogen 21 mg/dL (7-17); Carbon Dioxide 32 mmol/L (22-30); Chloride 102 mmol/L (98-107); Estimated CRCL calculation 36 ml/min; Estimated Glomerular Filt Rate 37; Glucose 116 mg/dL (65-110); Magnesium 1.7 mg/dL (1.6-2.3); Potassium 4.1 mmol/L (3.4-5.0); Sodium 135 mmol/L (137-145)
[2024-02-13 03:34] LABS: Vancomycin Trough 21.1 ug/mL (10.0-20.0)
[2024-02-13] MEDS: LEVOTHYROXINE SODIUM 112 MCG TABLET PO (06:41)
[2024-02-13 08:05] LABS: Glucose Point of Care 117 mg/dl (65-105)
[2024-02-13] MEDS: APIXABAN 5 MG TABLET PO ×2 (08:23→21:07)
[2024-02-13] MEDS: ATORVASTATIN 20 MG TABLET PO (08:23)
[2024-02-13] MEDS: MIDODRINE HCL 10 MG TABLET PO ×3 (08:23→18:33)
[2024-02-13] MEDS: AMIODARONE HCL 200 MG TABLET PO (08:24)
[2024-02-13] MEDS: ASPIRIN 81 MG ENTERIC TABLET PO (08:24)
[2024-02-13] MEDS: MUPIROCIN 2% OINT 22 GM TUBE 1 APPLIC EACH NARE ×2 (08:24→21:07)
[2024-02-13] MEDS: SODIUM BICARBONATE TAB 650 MG TABLET PO ×2 (08:24→18:33)
[2024-02-13] MEDS: PANTOPRAZOLE SODIUM IV 40 MG VIAL IV PUSH (08:25)
[2024-02-13] MEDS: ANASTROZOLE (*CHEMO) 1 MG TABLET PO (09:33)
[2024-02-13] MEDS: VANCOMYCIN 1,000 MG/NS 250 ML 1,000 MG/250 ML BAG 250 MG IVPB (09:33)
[2024-02-13 12:17] LABS: Glucose Point of Care 123 mg/dl (65-105)
--- NOTE | 2024-02-13 17:13 | P.PNIM_ITS ---
Progress Note: A&P Assessment and Plan (1) Cardiac arrest: Code(s): I46.9 - Cardiac arrest, cause unspecified Status: Acute Assessment and Plan: Cardiac arrest V-tach/VFib, multiple episodes of V-tach. -patient has been switched to p.o. amiodarone and patient on p.o. apixaban -cardiology following -patient was premedicated for contrast allergy prior to cardiac catheterization -02/07: Coronary angiogram showed no significant obstructive coronary artery disease, nonischemic cardiomyopathy, elevated LVEDP. According the awake overnight monitor, likely Takotsubo's cardiomyopathy -02/07/2024: Echocardiogram Summary 1. Left ventricular chamber dimension is moderately enlarged. 2. There is mildly increased left ventricular wall thickness. 3. Left ventricular systolic function is severely reduced, estimated at 20-25%. 4. Severe global hypokinesis with more pronounced hypokinesis of the anterolateral wall, anteroseptum. 5. Right ventricular systolic function is normal. 6. Left atrial chamber dimension is moderately enlarged. 7. There is mild aortic valve regurgitation. 8. There is mild to moderate mitral valve regurgitation. 9. There is small anterior pericardial effusion (2) Cardiomyopathy: Code(s): I42.9 - Cardiomyopathy, unspecified Status: Acute Assessment and Plan: Severe cardiomyopathy likely ischemic which could be the cause of recurrent VFib/V-tach -mild to moderate MVR -patient benefit from angiography given severe global hypokinesis of the anterolateral wall and anteroseptum -patient require GDMT for her cardiomyopathy, when she is off pressors and blood pressures tolerate -patient require a LifeVest on discharge prior to placement of a secondary prevention ICD (3) Shock: Code(s): R57.9 - Shock, unspecified Status: Acute Assessment and Plan: Patient presented with hypotension. Although she does have decubitus ulcer her WBC was normal and procalcitonin level is on the lower side Patient has decreased EF of 30-35% on last echo done in June 2023, hence it appears to be a multifactorial secondary to sepsis, hypovolemia, and cardiogenic -02/06: repeat echo as above shows EF of 20-25% Patient received adequate IV fluids, but unknown how long she was hypotensive. Off Levophed -02/04: Blood cultures negative x2 -02/05: Wound culture growing MRSA -02/07: Discontinue cefepime and Flagyl continue cefepime, Flagyl, -continue vancomycin (02/05), now on Linezolid complete a total of 14 days of abx -TSH within normal limits -random cortisol was within normal limits -continue midodrine (4) Decubitus ulcer: Qualifiers: Pressure injury location: buttock Pressure injury stage: stage 2 Laterality: right Qualified Code(s): L89.312 - Pressure ulcer of right buttock, stage 2 Code(s): L89.90 - Pressure ulcer of unspecified site, unspecified stage Status: Acute Assessment and Plan: Evaluated by wound care nurses. Continue local wound care. Wound cultures and antibiotics as above total abx of 14 days, as above (5) Diabetes type 2, controlled: Qualifiers: Diabetes mellitus usp insulin use: without long term care social worker use Diabetes mellitus complication status: without complication Qualified Code(s): E11.9 - Type 2 diabetes mellitus without complications Code(s): E11.9 - Type 2 diabetes mellitus without complications Status: Acute Assessment and Plan: Sliding scale insulin and Accu-Chek (6) Electrolyte abnormality: Code(s): E87.8 - Other disorders of electrolyte and fluid balance, not elsewhere classifi ed Status: Acute Assessment and Plan: Replace potassium, magnesium (7) Metabolic acidosis: Code(s): E87.20 - Acidosis, unspecified Status: Acute Assessment and Plan: Resolved Secondary to CRICKET. Due to hypotension and shock -off bicarb infusion (8) Acute kidney injury: Code(s): N17.9 - Acute kidney failure, unspecified Status: Acute Assessment and Plan: Presented with acute kidney injury and creatinine of 2.70 on admission CK level mildly elevated at 238 Likely secondary to hypotension and hypovolemia S/p IVF Cr 1.4 monitor Plan DVT prophylaxis -continue Eliquis Stress ulcer prophylaxis -Protonix Nutrition -heart healthy diet Code Status: Patient wishes to be Full Code Awaiting insurance auth Subjective Date/time seen: 02/13/24 17:13 Interval history: Patient comfortable at bedside PT/OT recommending SNF discharge Cardiology planning on Lifevest awaiting insurance auth Review of Systems Review of Systems: All systems reviewed & are unremarkable except as noted in HPI and below Exam Narrative: General: Old and frail female, is alert awake in no acute distress, kyphosis Lungs/Chest: Bilateral coarse breath sounds, rales at bases, no wheezing. Cardiac: Currently in sinus rhythm, S1-S2 is normal Circulation: Feet are warm, palpable pedal pulses Abdomen: Normal bowel sounds. Soft. Nontender, nondistended Extremities: No clubbing, cyanosis, mild pitting edema : Aleman in place Neurologic: Awake, alert, oriented to place and person and date of , follows simple commands in all extremities, able to carry out a conversation Skin: No Rash patient has decubitus ulcer Const: General: comfortable and no acute distress Other: , female, obese body habitus, nontoxic appearance HENMT: Face/Nose/Sinus: Normal nares present Mouth: Yes moist mucous membranes Eyes: General: appearance normal, both eyes and all related structures Sclera: sclerae normal Pupils: Equal, round and reactive pupils present EOM: EOMs intact bilaterally Resp: Effort & Inspection: normal respiratory effort Auscultation: clear to auscultation bilaterally Cardio: Rate: regular rate Rhythm: regular rhythm Other: S1-S2 present without murmur, rub, ectopy GI: Other: Sets abdomen rounded, soft, nontender. Normoactive bowel sounds in all quadrants. Skin: General skin exam: normal color, no rashes or lesions noted and wounds noted Wounds: wounds noted Other: shallow wound to posterior thigh just distal to the gluteal fold is approximately 3 x 1 and 0.5 cm with yellow to sanguinous drainage, scant to moderate. Mild erythema surrounding and mild tenderness. Second wound to right buttock measuring approximately 1.5 cm by 0.5 cm with red wound base, scant sanguinous drainage. Malodorous. Neuro: Cranial nerves: Yes Equal, round and reactive pupils present Speech: normal speech Motor exam (neuro): 5/5 motor strength present throughout Sensory Exam: normal sensation Other: A&O x4 Extrem: Other: 1+ nonpitting edema to bilateral lower e xtremities, symmetric. Psych: Mental Status: mental status grossly normal Affect: normal affect Other: Good insight and judgment, pleasant. Objective Data Vital Signs Vital Signs: Vital Signs - 24 hr 02/12/24 18:00 02/12/24 19:45 02/12/24 20:00 Temperature 97.6 F Pulse Rate 75 88 88 Respiratory Rate 18 Blood Pressure 99/58 L Pulse Oximetry 94 Oxygen Delivery Oxygen Flow Rate 02/12/24 21:10 02/12/24 22:00 02/12/24 23:55 Temperature 98.7 F Pulse Rate 88 88 88 Respiratory Rate 18 18 Blood Pressure 125/79 Pulse Oximetry 94 95 Oxygen Delivery Room Air Oxygen Flow Rate 02/13/24 00:00 02/13/24 00:33 02/13/24 02:00 Temperature Pulse Rate 81 88 78 Respiratory Rate 18 Blood Pressure Pulse Oximetry 95 Oxygen Delivery CPAP Oxygen Flow Rate 2 02/13/24 04:00 02/13/24 04:40 02/13/24 06:00 Temperature Pulse Rate 71 75 72 Respiratory Rate 16 Blood Pressure Pulse Oximetry 97 Oxygen Delivery CPAP Oxygen Flow Rate 2 02/13/24 08:00 02/13/24 08:00 02/13/24 08:24 Temperature 97.6 F Pulse Rate 86 88 86 Respiratory Rate 16 Blood Pressure 114/87 Pulse Oximetry 97 Oxygen Delivery Oxygen Flow Rate 02/13/24 10:00 02/13/24 11:53 02/13/24 12:00 Temperature 98.3 F Pulse Rate 79 78 83 Respiratory Rate 16 Blood Pressure 120/47 L Pulse Oximetry 97 Oxygen Delivery Oxygen Flow Rate 02/13/24 16:00 Temperature 97.4 F L Pulse Rate 87 Respiratory Rate 20 Blood Pressure 105/79 Pulse Oximetry 97 Oxygen Delivery Oxygen Flow Rate Intake/Output Intake/Output: Intake & Output 02/10/24 02/11/24 02/12/24 02/13/24 23:59 23:59 23:59 23:59 Intake Total 1500 642 778 600 Output Total 850 350 400 200 Balance 650 292 378 400 Meds/Results Medications: Active Medications Generic Name Dose Route Start Last Admin Trade Name Freq PRN Reason Stop Dose Admin Albuterol 1 puff 02/05/24 23:39 Albuterol Sulfate (*Sp) Aerosol 1 Puff INHALATION Q4HRT PRN shortness of breath or wheezing Amiodarone HCl 200 mg 02/09/24 13:15 02/13/24 08:24 Amiodarone Hcl 200 Mg Tablet PO 200 mg DAILY@0800 [facility] Administration Anastrozole 1 mg 02/06/24 09:00 02/13/24 09:33 Anastrozole (*Chemo) 1 Mg Tablet PO 1 mg DAILY [facility] Administration Apixaban 5 mg 02/09/24 09:15 02/13/24 08:23 Apixaban 5 Mg Tablet PO 5 mg Q12HR [facility] Administration Aspirin 81 mg 02/07/24 09:55 02/13/24 08:24 Aspirin 81 Mg Enteric Tablet PO 81 mg QAM [facility] Administration Atorvastatin Calcium 20 mg 02/11/24 09:00 02/13/24 08:23 Atorvastatin 20 Mg Tablet PO 20 mg DAILY [facility] Administration Dextrose 12.5 gm 02/05/24 19:30 Dextrose 50% 25 Gm/50 Ml Syringe IV PUSH PRN PRN Hypoglycemia Protocol Glucagon 1 mg 02/05/24 19:30 Glucagon For Inj 1 Mg Vial IM PRN PRN Hypoglycemia Protocol Glucose 15 gm 02/05/24 19:30 Glucose Oral Gel 15 Gm Of Glucse In 37.5 Gm Tube PO PRN PRN Hypoglycemia Protocol Dextrose 1,000 mls @ 100 mls/hr 02/05/24 19:30 Dextrose 5% 1,000 Ml IVPB PRN PRN Hypoglycemia Protocol Insulin Aspart 4 - 8 units 02/06/24 08:00 02/13/24 12:54 Insulin Aspart (*Bkc) 100 Units/Ml SUB-Q Not Given TIDWM [facility] Protocol Levothyroxine Sodium 112 mcg 02/06/24 06:30 02/13/24 06:41 Levothyroxine Sodium 112 Mcg Tablet PO 112 mcg DAILY@0630 [facility] Administration Linezolid 600 mg 02/14/24 21:00 Linezolid 600 Mg Tablet PO 02/18/24 21:01 Q12HR [facility] Midodrine 10 mg 02/06/24 09:00 02/13/24 14:24 Midodrine Hcl 10 Mg Tablet PO 10 mg TID [facility] Administration Mupirocin 1 applic 02/11/24 21:20 02/13/24 08:24 Mupirocin 2% Oint 22 Gm Tube EACH NARE 02/16/24 09:01 1 applic Q12HR [facility] Administration Ondansetron HCl 4 mg 02/09/24 04:25 02/09/24 04:15 Ondansetron Inj 4 Mg/2 Ml Vial IV PUSH 4 mg Q6H PRN Administration Nausea And Vomiting Pantoprazole Sodium 40 mg 02/05/24 19:35 02/13/24 08:25 Pantoprazole Sodium Iv 40 Mg Vial IV PUSH 40 mg QAM [facility] Administration Sodium Bicarbonate 650 mg 02/06/24 09:00 02/13/24 08:24 Sodium Bicarbonate Tab 650 Mg Tablet PO 650 mg BID [facility] Administration Radiology Results: ITS Impressions Abdomen/Pelvis CT 02/05/24 16:21 IMPRESSION: Mild cardiomegaly, coronary atherosclerosis Probable prior left thoracotomy Status post cholecystectomy Suggestion of decubitus ulcer and underlying inflammation capsularis and/or pulm onary edema of the medial right buttock Extensive degenerative changes of the thoracic and lumbar spine and the hips, especially the left hip ADDENDUM: 02/05/24 1804 Correction: IMPRESSIONS: Suggestion of decubitus ulcer and underlying inflammation/cellulitis and or subcutaneous edema of the medial right buttock Chest X-Ray 02/11/24 08:50 IMPRESSION: 1. Cardiomegaly with pulmonary vascular congestion but improvement in prior pulmonary edema. 2. Increased small bilateral pleural effusions with associated atelectasis versus pneumonia in the bilateral lower lung zones. Labs Labs: Laboratory Results - last 24 hr 02/12/24 02/13/24 02/13/24 19:46 03:08 08:03 WBC 5.4 RBC 3.47 L Hgb 10.0 L Hct 31.1 L MCV 89.6 MCH 28.8 MCHC 32.2 RDW 15.2 H Plt Count 258 MPV 10.1 Immature Gran % (Auto) 1.9 H Neut % (Auto) 50.3 Lymph % (Auto) 29.1 Forrest % (Auto) 14.4 H Eos % (Auto) 3.9 Baso % (Auto) 0.4 Lymph # (Auto) 1.56 Forrest # (Auto) 0.8 H Eos # (Auto) 0.2 Baso # (Auto) 0.0 Abs Immat Gran (auto) 0.10 H Absolute Neuts (auto) 2.7 Absolute Nucleated RBC 0.020 H Nucleated RBC % 0.4 H Sodium 135 L Potassium 4.1 Chloride 102 Carbon Dioxide 32 H Anion Gap 1 L BUN 21 H Creatinine 1.40 H Estim Creat Clear Calc 36 Estimated GFR 37 L Glucose 116 H POC Capillary Glucose 154 H 117 H Calcium 9.0 Magnesium 1.7 Total Bilirubin 0.5 AST 26 ALT 17 Alkaline Phosphatase 52 Total Protein 5.0 L Albumin 3.4 L Vancomycin Trough 21.1 H 02/13/24 11:46 WBC RBC Hgb Hct MCV MCH MCHC RDW Plt Count MPV Immature Gran % (Auto) Neut % (Auto) Lymph % (Auto) Forrest % (Auto) Eos % (Auto) Baso % (Auto) Lymph # (Auto) Forrest # (Auto) Eos # (Auto) Baso # (Auto) Abs Immat Gran (auto) Absolute Neuts (auto) Absolute Nucleated RBC Nucleated RBC % Sodium Potassium Chloride Carbon Dioxide Anion Gap BUN Creatinine Estim Creat Clear Calc Estimated GFR Glucose POC Capillary Glucose 123 H Calcium Magnesium Total Bilirubin AST ALT Alkaline Phosphatase Total Protein Albumin Vancomycin Trough Quality VTE Prophylaxis VTE prophylaxis: mechanical ordered and pharmacologic ordered
[2024-02-13 19:17] LABS: Glucose Point of Care 149 mg/dl (65-105)
[2024-02-13 20:20] LABS: Glucose Point of Care 157 mg/dl (65-105)
[2024-02-14] VITALS (16 sets, daily range): BP systolic 104–116; BP diastolic 61–70; PULSE 70–98; RESP 18–22; TEMP 36.4–36.6; O2SAT 95–99
[2024-02-14 04:44] LABS: Basophils Percent Auto 0.4 % (0.2-1.2); Eosinophils Absolute Auto 0.2 K/mm3 (0-0.3); Eosinophils Percent Auto 3.4 % (0-4.4); Hematocrit 31.2 % (37.0-47.0); Immature Granulocyte Absolute 0.09 K/mm3 (0.00-0.031); Immature Granulocyte Percent A 1.8 % (0-0.5); Lymphocytes Absolute Auto 1.21 K/mm3 (0.9-3.2); Lymphocytes Percent Auto 23.9 % (18.3-44.2); Mean Corpuscular HGB Conc 32.1 g/dl (32-36); Mean Corpuscular Hemoglobin 28.7 pg (26-34); Mean Corpuscular Volume 89.7 fl (80-100); Monocytes Absolute Auto 0.7 K/mm3 (0.1-0.6); Monocytes Percent Auto 14.2 % (2.6-8.5); Neutrophils Absolute Auto 2.9 K/mm3 (1.3-6.7); Neutrophils Percent Auto 56.3 % (45.5-73.1); Nucleated Red Blood Cells Perc 0.4 % (0.0-0.2); Platelet Count Result 254 k/mm3 (150-375); Red Blood Count 3.48 M/mm3 (4.2-5.4); Red Cell Distribution Width 15.1 % (11.5-14.5); White Blood Count 5.1 K/mm3 (4.5-10.0)
[2024-02-14 04:57] LABS: Alanine Aminotransferase 14 U/L (6-35); Albumin Level 3.3 g/dL (3.5-5.1); Alkaline Phosphatase 47 U/L (38-126); Anion Gap 3 mmol/L (4-12); Aspartate Amino Transferase 21 U/L (14-36); Bilirubin,Total 0.5 mg/dL (0.2-1.3); Blood Urea Nitrogen 20 mg/dL (7-17); Calcium 9.2 mg/dL (8.4-10.2); Carbon Dioxide 31 mmol/L (22-30); Chloride 103 mmol/L (98-107); Estimated CRCL calculation 36 ml/min; Estimated Glomerular Filt Rate 37; Glucose 122 mg/dL (65-110); Magnesium 1.6 mg/dL (1.6-2.3); Potassium 4.2 mmol/L (3.4-5.0); Sodium 137 mmol/L (137-145)
[2024-02-14] MEDS: LEVOTHYROXINE SODIUM 112 MCG TABLET PO (05:51)
[2024-02-14 08:06] LABS: Glucose Point of Care 108 mg/dl (65-105)
[2024-02-14] MEDS: MIDODRINE HCL 10 MG TABLET PO ×3 (08:18→17:41)
[2024-02-14] MEDS: APIXABAN 5 MG TABLET PO ×2 (08:18→20:30)
[2024-02-14] MEDS: SODIUM BICARBONATE TAB 650 MG TABLET PO ×2 (08:18→17:41)
[2024-02-14] MEDS: MUPIROCIN 2% OINT 22 GM TUBE 1 APPLIC EACH NARE ×2 (08:18→20:30)
[2024-02-14] MEDS: ANASTROZOLE (*CHEMO) 1 MG TABLET PO (08:18)
[2024-02-14] MEDS: ASPIRIN 81 MG ENTERIC TABLET PO (08:18)
[2024-02-14] MEDS: PANTOPRAZOLE SODIUM IV 40 MG VIAL IV PUSH (08:18)
[2024-02-14] MEDS: AMIODARONE HCL 200 MG TABLET PO (08:18)
[2024-02-14] MEDS: ATORVASTATIN 20 MG TABLET PO (08:18)
--- NOTE | 2024-02-14 10:00 | P.PNIM_ITS ---
Progress Note: A&P Assessment and Plan (1) Cardiac arrest: Code(s): I46.9 - Cardiac arrest, cause unspecified Status: Acute (2) Shock: Code(s): R57.9 - Shock, unspecified Status: Acute (3) Decubitus ulcer: Code(s): L89.90 - Pressure ulcer of unspecified site, unspecified stage Status: Acute (4) Electrolyte abnormality: Code(s): E87.8 - Other disorders of electrolyte and fluid balance, not elsewhere classified Status: Acute (5) Acute kidney injury: Code(s): N17.9 - Acute kidney failure, unspecified Status: Acute (6) Acute kidney injury superimposed on CKD: Code(s): N17.9 - Acute kidney failure, unspecified; N18.9 - Chronic kidney disease, unspecified Status: Acute (7) Essential (primary) hypertension: Code(s): I10 - Essential (primary) hypertension Status: Chronic Plan Cardiac arrest: Code(s): I46.9 - Cardiac arrest, cause unspecified Status: Acute Assessment and Plan: Cardiac arrest V-tach/VFib, multiple episodes of V-tach. -patient has been switched to p.o. amiodarone and patient on p.o. apixaban -cardiology following -patient was premedicated for contrast allergy prior to cardiac catheterization -02/07: Coronary angiogram showed no significant obstructive coronary artery disease, nonischemic cardiomyopathy, elevated LVEDP. According the machine cementer and folder, likely Takotsubo's cardiomyopathy -02/07/2024: Echocardiogram Summary 1. Left ventricular chamber dimension is moderately enlarged. 2. There is mildly increased left ventricular wall thickness. 3. Left ventricular systolic function is severely reduced, estimated at 20-25%. 4. Severe global hypokinesis with more pronounced hypokinesis of the anterolateral wall, anteroseptum. 5. Right ventricular systolic function is normal. 6. Left atrial chamber dimension is moderately enlarged. 7. There is mild aortic valve regurgitation. 8. There is mild to moderate mitral valve regurgitation. 9. There is small anterior pericardial effusion (2) Cardiomyopathy: Code(s): I42.9 - Cardiomyopathy, unspecified Status: Acute Assessment and Plan: Severe cardiomyopathy likely ischemic which could be the cause of recurrent VF ib/V-tach -mild to moderate MVR -patient benefit from angiography given severe global hypokinesis of the anterolateral wall and anteroseptum -patient require GDMT for her cardiomyopathy, when she is off pressors and blood pressures tolerate -patient require a LifeVest on discharge prior to placement of a secondary prevention ICD Shock: Code(s): R57.9 - Shock, unspecified Status: Acute Assessment and Plan: Patient presented with hypotension. Although she does have decubitus ulcer her WBC was normal and procalcitonin level is on the lower side Patient has decreased EF of 30-35% on last echo done in June 2023, hence it appears to be a multifactorial secondary to sepsis, hypovolemia, and cardiogenic -02/06: repeat echo as above shows EF of 20-25% Patient received adequate IV fluids, but unknown how long she was hypotensive. Off Levophed -02/04: Blood cultures negative x2 -02/05: Wound culture growing MRSA -02/07: Discontinue cefepime and Flagyl continue cefepime, Flagyl, -continue vancomycin (02/05), now on Linezolid complete a total of 14 days of abx -TSH within normal limits -random cortisol was within normal limits -continue midodrine (4) Decubitus ulcer: Qualifiers: Pressure injury location: buttock Pressure injury stage: stage 2 Laterality: right Qualified Code(s): L89.312 - Pressure ulcer of right buttock, stage 2 Code(s): L89.90 - Pressure ulcer of unspecified site, unspecified stage Status: Acute Assessment and Plan: Evaluated by wound care nurses. Continue local wound care. Wound cultures and antibiotics as above total abx of 14 days, as above (5) Diabetes type 2, controlled: Qualifiers: Diabetes mellitus chcf insulin use: without chcf use Diabetes mellitus complication status: without complication Qualified Code(s): E11.9 - Type 2 diabetes mellitus without complications Code(s): E11.9 - Type 2 diabetes mellitus without complications Status: Acute Assessment and Plan: Sliding scale insulin and Accu-Chek (6) Electrolyte abnormality: Code(s): E87.8 - Other disorders of electrolyte and fluid balance, not elsewhere classified Status: Acute Assessment and Plan: Replace potassium, magnesium (7) Metabolic acidosis: Code(s): E87.20 - Acidosis, unspecified Status: Acute Assessment and Plan: Resolved Secondary to CRICKET. Due to hypotension and shock -off bicarb infusion (8) Acute kidney injury: Code(s): N17.9 - Acute kidney failure, unspecified Status: Acute Assessment and Plan: Presented with acute kidney injury and creatinine of 2.70 on admission CK level mildly elevated at 238 Likely secondary to hypotension and hypovolemia S/p IVF Cr 1.4 monitor Plan DVT prophylaxis -continue Eliquis Stress ulcer prophylaxis -Protonix Nutrition -heart healthy diet Code Status: Patient wishes to be Full Code Awaiting insurance auth Subjective Date/time seen: 02/14/24 10:00 Interval history: I saw exam patient today. Patient denies lightheadedness, palpitation, chest pain, shortness breast. Patient has a general weakness. Patient is able to ambulate with assistance of physical therapist. No new issue even overnight Exam Narrative: GENERAL: Ill-appearing, frail in no acute distress. - EYES: EOMI. Anicteric. - HENT: Moist mucous membranes. - LUNGS: Clear to auscultation bilateral ly, no wheezing, rhonchi, or rales. - CARDIOVASCULAR: Irregular rhythm,. No murmur. No JVD. - ABDOMEN: Soft, non-tender and non-dist ended. No palpable masses. - EXTREMITIES: No edema. Peripheral puls es 2+. Non-tender. - NEUROLOGIC: No focal neurological defi cits. CN II-XII grossly intact. General weakness, - PSYCHIATRIC: Awake, Alert and oriented x 3. Appropriate mood and affect. - SKIN: No rashes or lesions. Warm. - LYMPH: No cervical lymphadenopathy. Objective Data Vital Signs Vital Signs: Vital Signs - 24 hr 02/13/24 11:53 02/13/24 12:00 02/13/24 14:00 Temperature 98.3 F Pulse Rate 78 83 81 Respiratory Rate 16 Blood Pressure 120/47 L Pulse Oximetry 97 Oxygen Delivery Oxygen Flow Rate 02/13/24 16:00 02/13/24 16:00 02/13/24 18:00 Temperature 97.4 F L Pulse Rate 87 80 82 Respiratory Rate 20 Blood Pressure 105/79 Pulse Oximetry 97 Oxygen Delivery Oxygen Flow Rate 02/13/24 20:00 02/13/24 20:00 02/13/24 20:08 Temperature 97.5 F L Pulse Rate 91 87 Respiratory Rate 22 H Blood Pressure 111/64 Pulse Oximetry 87 L Oxygen Delivery Room Air Oxygen Flow Rate 02/13/24 22:00 02/13/24 23:35 02/13/24 23:37 Temperature 98.1 F Pulse Rate 72 81 81 Respiratory Rate 22 H Blood Pressure 107/65 Pulse Oximetry 96 96 Oxygen Delivery Autopap Oxygen Flow Rate 02/14/24 00:00 02/14/24 00:00 02/14/24 02:00 Temperature Pulse Rate 90 70 Respiratory Rate Blood Pressure Pulse Oximetry 96 Oxygen Delivery CPAP Oxygen Flow Rate 2 02/14/24 03:56 02/14/24 04:00 02/14/24 04:00 Temperature 97.6 F Pulse Rate 84 74 Respiratory Rate 22 H Blood Pressure 104/65 Pulse Oximetry 97 97 Oxygen Delivery CPAP Oxygen Flow Rate 2 02/14/24 06:00 02/14/24 07:33 02/14/24 08:00 Temperature 97.9 F Pulse Rate 86 87 98 Respiratory Rate 18 18 Blood Pressure 111/67 Pulse Oximetry 95 95 Oxygen Delivery Room Air Oxygen Flow Rate 02/14/24 08:18 02/14/24 09:07 Temperature Pulse Rate 98 Respiratory Rate Blood Pressure Pulse Oximetry 95 Oxygen Delivery Room Air Oxygen Flow Rate Intake/Output Intake/Output: Intake & Output 02/11/24 02/12/24 02/13/24 02/14/24 23:59 23:59 23:59 23:59 Intake Total 942 828 9020 610 Output Total 350 400 400 250 Balance 292 378 990 360 Meds/Results Medications: Active Medications Generic Name Dose Route Start Last Admin Trade Name Freq PRN Reason Stop Dose Admin Albuterol 1 puff 02/05/24 23:39 Albuterol Sulfate (*Sp) Aerosol 1 Puff INHALATION Q4HRT PRN shortness of breath or wheezing Amiodarone HCl 200 mg 02/09/24 13:15 02/14/24 08:18 Amiodarone Hcl 200 Mg Tablet PO 200 mg DAILY@0800 KEATON Administration Anastrozole 1 mg 02/06/24 09:00 02/14/24 08:18 Anastrozole (*Chemo) 1 Mg Tablet PO 1 mg DAILY KEATON Administration Apixaban 5 mg 02/09/24 09:15 02/14/24 08:18 Apixaban 5 Mg Tablet PO 5 mg Q12HR KEATON Administration Aspirin 81 mg 02/07/24 09:55 02/14/24 08:18 Aspirin 81 Mg Enteric Tablet PO 81 mg QAM KEATON Administration Atorvastatin Calcium 20 mg 02/11/24 09:00 02/14/24 08:18 Atorvastatin 20 Mg Tablet PO 20 mg DAILY KEATON Administration Dextrose 12.5 gm 02/05/24 19:30 Dextrose 50% 25 Gm/50 Ml Syringe IV PUSH PRN PRN Hypoglycemia Protocol Glucagon 1 mg 02/05/24 19:30 Glucagon For Inj 1 Mg Vial IM PRN PRN Hypoglycemia Protocol Glucose 15 gm 02/05/24 19:30 Glucose Oral Gel 15 Gm Of Glucse In 37.5 Gm Tube PO PRN PRN Hypoglycemia Protocol Dextrose 1,000 mls @ 100 mls/hr 02/05/24 19:30 Dextrose 5% 1,000 Ml IVPB PRN PRN Hypoglycemia Protocol Insulin Aspart 4 - 8 units 02/06/24 08:00 02/14/24 08:18 Insulin Aspart (*Bkc) 100 Units/Ml SUB-Q Not Given TIDWM [facility] Protocol Levothyroxine Sodium 112 mcg 02/06/24 06:30 02/14/24 05:51 Levothyroxine Sodium 112 Mcg Tablet PO 112 mcg DAILY@0630 KEATON Administration Linezolid 600 mg 02/14/24 21:00 Linezolid 600 Mg Tablet PO 02/18/24 21:01 Q12HR KEATON Midodrine 10 mg 02/06/24 09:00 02/14/24 08:18 Midodrine Hcl 10 Mg Tablet PO 10 mg TID KEATON Administration Mupirocin 1 applic 02/11/24 21:20 02/14/24 08:18 Mupirocin 2% Oint 22 Gm Tube EACH NARE 02/16/24 09:01 1 applic Q12HR KEATON Administration Ondansetron HCl 4 mg 02/09/24 04:25 02/09/24 04:15 Ondansetron Inj 4 Mg/2 Ml Vial IV PUSH 4 mg Q6H PRN Administration Nausea And Vomiting Pantoprazole Sodium 40 mg 02/05/24 19:35 02/14/24 08:18 Pantoprazole Sodium Iv 40 Mg Vial IV PUSH 40 mg QAM KEATON Administration Sodium Bicarbonate 650 mg 02/06/24 09:00 02/14/24 08:18 Sodium Bicarbonate Tab 650 Mg Tablet PO 650 mg BID KEATON Administration Radiology Results: ITS Impressions Abdomen/Pelvis CT 02/05/24 16:21 IMPRESSION: Mild cardiomegaly, coronary atherosclerosis Probable prior left thoracotomy Status post cholecystectomy Suggestion of decubitus ulcer and underlying inflammation capsularis and/or pulmonary edema of the medial right buttock Extensive degenerative changes of the thoracic and lumbar spine and the hips, especially the left hip ADDENDUM: 02/05/24 [id number] Correction: IMPRESSIONS: Suggestion of decubitus ulcer and underlying inflammation/cellulitis and or subcutaneous edema of the medial right buttock Chest X-Ray 02/11/24 08:50 IMPRESSION: 1. Cardiomegaly with pulmonary vascular congestion but improvement in prior pulmonary edema. 2. Increased small bilateral pleural effusions with associated atelectasis versus pneumonia in the bilateral lower lung zones. Labs Labs: Laboratory Results - last 24 hr 02/13/24 02/13/24 02/13/24 11:46 16:35 20:06 WBC RBC Hgb Hct MCV MCH MCHC RDW Plt Count MPV Immature Gran % (Auto) Neut % (Auto) Lymph % (Auto) [place] % (Auto) Eos % (Auto) Baso % (Auto) Lymph # (Auto) [place] # (Auto) Eos # (Auto) Baso # (Auto) Abs Immat Gran (auto) Absolute Neuts (auto) Absolute Nucleated RBC Nucleated RBC % Sodium Potassium Chloride Carbon Dioxide Anion Gap BUN Creatinine Estim Creat Clear Calc Estimated GFR Glucose POC Capillary Glucose 123 H 149 H 157 H Calcium Magnesium Total Bilirubin AST ALT Alkaline Phosphatase Total Protein Albumin 02/14/24 02/14/24 04:31 07:33 WBC 5.1 RBC 3.48 L Hgb 10.0 L Hct 31.2 L MCV 89.7 MCH 28.7 MCHC 32.1 RDW 15.1 H Plt Count 254 MPV 10.0 Immature Gran % (Auto) 1.8 H Neut % (Auto) 56.3 Lymph % (Auto) 23.9 [place] % (Auto) 14.2 H Eos % (Auto) 3.4 Baso % (Auto) 0.4 Lymph # (Auto) 1.21 [place] # (Auto) 0.7 H Eos # (Auto) 0.2 Baso # (Auto) 0.0 Abs Immat Gran (auto) 0.09 H Absolute Neuts (auto) 2.9 Absolute Nucleated RBC 0.020 H Nucleated RBC % 0.4 H Sodium 137 Potassium 4.2 Chloride 103 Carbon Dioxide 31 H Anion Gap 3 L BUN 20 H Creatinine 1.40 H Estim Creat Clear Calc 36 Estimated GFR 37 L Glucose 122 H POC Capillary Glucose 108 H Calcium 9.2 Magnesium 1.6 Total Bilirubin 0.5 AST 21 ALT 14 Alkaline Phosphatase 47 Total Protein 6.0 L Albumin 3.3 L
[2024-02-14 11:58] LABS: Glucose Point of Care 143 mg/dl (65-105)
[2024-02-14 16:11] LABS: Glucose Point of Care 246 mg/dl (65-105)
[2024-02-14] MEDS: INSULIN ASPART (*BKC) 100 UNITS/ML SUB-Q (17:41)
[2024-02-14] MEDS: LINEZOLID 600 MG TABLET PO (20:30)
[2024-02-14 20:44] LABS: Glucose Point of Care 67 mg/dl (65-105)
[2024-02-14 21:58] LABS: Glucose Point of Care 76 mg/dl (65-105)
[2024-02-14 21:58] LABS: Glucose Point of Care 91 mg/dl (65-105)
[2024-02-15] VITALS (12 sets, daily range): BP systolic 106–113; BP diastolic 63–67; PULSE 70–118; RESP 18–22; TEMP 36.6–36.7; O2SAT 96–100
[2024-02-15] MEDS: LEVOTHYROXINE SODIUM 112 MCG TABLET PO (06:30)
--- NOTE | 2024-02-15 06:49 | PC.NURSE ---
pt had no output overnight, bladder scanner showed 150mL.
[2024-02-15 07:35] LABS: Glucose Point of Care 105 mg/dl (65-105)
[2024-02-15] MEDS: SODIUM BICARBONATE TAB 650 MG TABLET PO ×2 (08:33→17:09)
[2024-02-15] MEDS: ATORVASTATIN 20 MG TABLET PO (08:33)
[2024-02-15] MEDS: LINEZOLID 600 MG TABLET PO ×2 (08:33→20:02)
[2024-02-15] MEDS: ASPIRIN 81 MG ENTERIC TABLET PO (08:33)
[2024-02-15] MEDS: APIXABAN 5 MG TABLET PO ×2 (08:33→20:02)
[2024-02-15] MEDS: MIDODRINE HCL 10 MG TABLET PO ×3 (08:33→17:09)
[2024-02-15] MEDS: PANTOPRAZOLE SODIUM IV 40 MG VIAL IV PUSH (08:33)
[2024-02-15] MEDS: ANASTROZOLE (*CHEMO) 1 MG TABLET PO (08:34)
[2024-02-15] MEDS: AMIODARONE HCL 200 MG TABLET PO (08:34)
[2024-02-15] MEDS: MUPIROCIN 2% OINT 22 GM TUBE 1 APPLIC EACH NARE ×2 (08:35→20:02)
--- NOTE | 2024-02-15 09:46 | P.PNIM_ITS ---
Progress Note: A&P Assessment and Plan (1) Cardiac arrest: Code(s): I46.9 - Cardiac arrest, cause unspecified Status: Acute (2) Shock: Code(s): R57.9 - Shock, unspecified Status: Acute (3) Decubitus ulcer: Code(s): L89.90 - Pressure ulcer of unspecified site, unspecified stage Status: Acute (4) Electrolyte abnormality: Code(s): E87.8 - Other disorders of electrolyte and fluid balance, not elsewhere classified Status: Acute (5) Acute kidney injury: Code(s): N17.9 - Acute kidney failure, unspecified Status: Acute (6) Acute kidney injury superimposed on CKD: Code(s): N17.9 - Acute kidney failure, unspecified; N18.9 - Chronic kidney disease, unspecified Status: Acute (7) Essential (primary) hypertension: Code(s): I10 - Essential (primary) hypertension Status: Chronic Plan Cardiac arrest: Code(s): I46.9 - Cardiac arrest, cause unspecified Status: Acute Assessment and Plan: Cardiac arrest V-tach/VFib, multiple episodes of V-tach. -patient has been switched to p.o. amiodarone and patient on p.o. apixaban -cardiology following -patient was premedicated for contrast allergy prior to cardiac catheterization -02/07: Coronary angiogram showed no significant obstructive coronary artery disease, nonischemic cardiomyopathy, elevated LVEDP. According the millwork estimator, likely Takotsubo's cardiomyopathy -02/07/2024: Echocardiogram Summary 1. Left ventricular chamber dimension is moderately enlarged. 2. There is mildly increased left ventricular wall thickness. 3. Left ventricular systolic function is severely reduced, estimated at 20-25%. 4. Severe global hypokinesis with more pronounced hypokinesis of the anterolateral wall, anteroseptum. 5. Right ventricular systolic function is normal. 6. Left atrial chamber dimension is moderately enlarged. 7. There is mild aortic valve regurgitation. 8. There is mild to moderate mitral valve regurgitation. 9. There is small anterior pericardial effusion (2) Cardiomyopathy: Code(s): I42.9 - Cardiomyopathy, unspecified Status: Acute Assessment and Plan: Severe cardiomyopathy likely ischemic which could be the cause of recurrent VF ib/V-tach -mild to moderate MVR -patient benefit from angiography given severe global hypokinesis of the anterolateral wall and anteroseptum -patient require GDMT for her cardiomyopathy, when she is off pressors and blood pressures tolerate -patient require a LifeVest on discharge prior to placement of a secondary prevention ICD Shock: Code(s): R57.9 - Shock, unspecified Status: Acute Assessment and Plan: Patient presented with hypotension. Although she does have decubitus ulcer her WBC was normal and procalcitonin level is on the lower side Patient has decreased EF of 30-35% on last echo done in June 2023, hence it appears to be a multifactorial secondary to sepsis, hypovolemia, and cardiogenic -02/06: repeat echo as above shows EF of 20-25% Patient received adequate IV fluids, but unknown how long she was hypotensive. Off Levophed -02/04: Blood cultures negative x2 -02/05: Wound culture growing MRSA -02/07: Discontinue cefepime and Flagyl continue cefepime, Flagyl, Received vancomycin (02/05) and Linezolid complete a total of 14 days of abx -TSH within normal limits -random cortisol was within normal limits -continue midodrine (4) Decubitus ulcer: Qualifiers: Pressure injury location: buttock Pressure injury stage: stage 2 Laterality: right Qualified Code(s): L89.312 - Pressure ulcer of right buttock, stage Code(s): L89.90 - Pressure ulcer of unspecified site, unspecified stage Status: Acute Assessment and Plan: Evaluated by wound care nurses. Continue local wound care. Wound cultures and antibiotics as above total abx of 14 days, as above (5) Diabetes type 2, controlled: Qualifiers: Diabetes mellitus roasterman insulin use: without correction use Diabetes mellitus complication status: without complication Qualified Code(s): E11.9 - Type 2 diabetes mellitus without complications Code(s): E11.9 - Type 2 diabetes mellitus without complications Status: Acute Assessment and Plan: Sliding scale insulin and Accu-Chek (6) Electrolyte abnormality: Code(s): E87.8 - Other disorders of electrolyte and fluid balance, not elsewhere classified Status: Acute Assessment and Plan: Replace potassium, magnesium (7) Metabolic acidosis: Code(s): E87.20 - Acidosis, unspecified Status: Acute Assessment and Plan: Resolved Secondary to CRICKET. Due to hypotension and shock -off bicarb infusion (8) Acute kidney injury: Code(s): N17.9 - Acute kidney failure, unspecified Status: Acute Assessment and Plan: Presented with acute kidney injury and creatinine of 2.70 on admission CK level mildly elevated at 238 Likely secondary to hypotension and hypovolemia S/p IVF Cr 1.4 monitor Plan DVT prophylaxis -continue Eliquis Stress ulcer prophylaxis -Protonix Nutrition -heart healthy diet Code Status: Patient wishes to be Full Code Awaiting insurance auth Subjective Date/time seen: 02/15/24 09:46 Interval history: I saw exam patient today. Patient patient has no new issues even over the night, ambulates with physical therapist about 17 yd denies lightheadedness, palpitation, chest pain, shortness breast. Patient has a general weakness No new issue even overnight Exam Narrative: GENERAL: Ill-appearing, frail in no acute distress. - EYES: EOMI. Anicteric. - HENT: Moist mucous membranes. - LUNGS: Clear to auscultation bilateral ly, no wheezing, rhonchi, or rales. - CARDIOVASCULAR: Irregular rhythm,. No murmur. No JVD. - ABDOMEN: Soft, non-tender and non-dist ended. No palpable masses. - EXTREMITIES: No edema. Peripheral puls es 2+. Non-tender. - NEUROLOGIC: No focal neurological defi cits. CN II-XII grossly intact. General weakness, - PSYCHIATRIC: Awake, Alert and oriented x 3. Appropriate mood and affect. - SKIN: No rashes or lesions. Warm. - LYMPH: No cervical lymphadenopathy. Objective Data Vital Signs Vital Signs: Vital Signs - 24 hr 02/14/24 10:00 02/14/24 12:00 02/14/24 15:41 Temperature 97.8 F Pulse Rate 87 98 96 Respiratory Rate 22 H Blood Pressure 116/70 Pulse Oximetry 99 Oxygen Delivery 02/14/24 16:00 02/14/24 20:00 02/14/24 20:00 Temperature Pulse Rate 87 79 Respiratory Rate Blood Pressure Pulse Oximetry 97 Oxygen Delivery Room Air 02/14/24 20:46 02/14/24 23:10 02/15/24 00:00 Temperature 97.9 F Pulse Rate 87 87 75 Respiratory Rate 22 H Blood Pressure 113/61 Pulse Oximetry 97 96 Oxygen Delivery Autopap 02/15/24 01:01 02/15/24 01:45 02/15/24 04:00 Temperature Pulse Rate 79 70 74 Respiratory Rate Blood Pressure Pulse Oximetry 96 Oxygen Delivery Autopap 02/15/24 07:30 02/15/24 08:00 02/15/24 08:00 Temperature 97.8 F Pulse Rate 81 90 79 Respiratory Rate 18 18 Blood Pressure 106/63 Pulse Oximetry 100 100 Oxygen Delivery Room Air 02/15/24 08:34 Temperature Pulse Rate 90 Respiratory Rate Blood Pressure Pulse Oximetry Oxygen Delivery Intake/Output Intake/Output: Intake & Output 02/12/24 02/13/24 02/14/24 02/15/24 23:59 23:59 23:59 23:59 Intake Total 778 1390 1400 480 Output Total 400 400 350 0 Balance 618 515 8165 480 Meds/Results Medications: Active Medications Generic Name Dose Route Start Last Admin Trade Name Freq PRN Reason Stop Dose Admin Albuterol 1 puff 02/05/24 23:39 Albuterol Sulfate (*Sp) Aerosol 1 Puff INHALATION Q4HRT PRN shortness of breath or wheezing Amiodarone HCl 200 mg 02/09/24 13:15 02/15/24 08:34 Amiodarone Hcl 200 Mg Tablet PO 200 mg DAILY@0800 KEATON Administration Anastrozole 1 mg 02/06/24 09:00 02/15/24 08:34 Anastrozole (*Chemo) 1 Mg Tablet PO 1 mg DAILY KEATON Administration Apixaban 5 mg 02/09/24 09:15 02/15/24 08:33 Apixaban 5 Mg Tablet PO 5 mg Q12HR KEATON Administration Aspirin 81 mg 02/07/24 09:55 02/15/24 08:33 Aspirin 81 Mg Enteric Tablet PO 81 mg QAM KEATON Administration Atorvastatin Calcium 20 mg 02/11/24 09:00 02/15/24 08:33 Atorvastatin 20 Mg Tablet PO 20 mg DAILY KEATON Administration Dextrose 12.5 gm 02/05/24 19:30 Dextrose 50% 25 Gm/50 Ml Syringe IV PUSH PRN PRN Hypoglycemia Protocol Glucagon 1 mg 02/05/24 19:30 Glucagon For Inj 1 Mg Vial IM PRN PRN Hypoglycemia Protocol Glucose 15 gm 02/05/24 19:30 Glucose Oral Gel 15 Gm Of Glucse In 37.5 Gm Tube PO PRN PRN Hypoglycemia Protocol Dextrose 1,000 mls @ 100 mls/hr 02/05/24 19:30 Dextrose 5% 1,000 Ml IVPB PRN PRN Hypoglycemia Protocol Insulin Aspart 4 - 8 units 02/06/24 08:00 02/15/24 08:34 Insulin Aspart (*Bkc) 100 Units/Ml SUB-Q Not Given TIDWM [facility] Protocol Levothyroxine Sodium 112 mcg 02/06/24 06:30 02/15/24 06:30 Levothyroxine Sodium 112 Mcg Tablet PO 112 mcg DAILY@0630 KEATON Administration Linezolid 600 mg 02/14/24 21:00 02/15/24 08:33 Linezolid 600 Mg Tablet PO 02/18/24 21:01 600 mg Q12HR KEATON Administration Midodrine 10 mg 02/06/24 09:00 02/15/24 08:33 Midodrine Hcl 10 Mg Tablet PO 10 mg TID KEATON Administration Mupirocin 1 applic 02/11/24 21:20 02/15/24 08:35 Mupirocin 2% Oint 22 Gm Tube EACH NARE 02/16/24 09:01 1 applic Q12HR KEATON Administration Ondansetron HCl 4 mg 02/09/24 04:25 02/09/24 04:15 Ondansetron Inj 4 Mg/2 Ml Vial IV PUSH 4 mg Q6H PRN Administration Nausea And Vomiting Pantoprazole Sodium 40 mg 02/05/24 19:35 02/15/24 08:33 Pantoprazole Sodium Iv 40 Mg Vial IV PUSH 40 mg QAM KEATON Administration Sodium Bicarbonate 650 mg 02/06/24 09:00 02/15/24 08:33 Sodium Bicarbonate Tab 650 Mg Tablet PO 650 mg BID KEATON Administration Radiology Results: ITS Impressions Abdomen/Pelvis CT 02/05/24 16:21 IMPRESSION: Mild cardiomegaly, coronary atherosclerosis Probable prior left thoracotomy Status post cholecystectomy Suggestion of decubitus ulcer and underlying inflammation capsularis and/or pulmonary edema of the medial right buttock Extensive degenerative changes of the thoracic and lumbar spine and the hips, especially the left hip ADDENDUM: 02/05/24 [id number] Correction: IMPRESSIONS: Suggestion of decubitus ulcer and underlying inflammation/cellulitis and or subcutaneous edema of the medial right buttock Chest X-Ray 02/11/24 08:50 IMPRESSION: 1. Cardiomegaly with pulmonary vascular congestion but improvement in prior pulmonary edema. 2. Increased small bilateral pleural effusions with associated atelectasis versus pneumonia in the bilateral lower lung zones. Labs Labs: Laboratory Results - last 24 hr 02/14/24 02/14/24 02/14/24 11:46 15:34 20:31 POC Capillary Glucose 143 H 246 H 67 02/14/24 02/14/24 02/15/24 20:59 21:55 07:21 POC Capillary Glucose 76 91 105
[2024-02-15 10:42] LABS: Hematocrit 34.5 % (37.0-47.0); Hemoglobin 10.6 g/dL (12.0-15.0); Mean Corpuscular HGB Conc 30.7 g/dl (32-36); Mean Corpuscular Hemoglobin 28.6 pg (26-34); Mean Corpuscular Volume 93.2 fl (80-100); Mean Platelet Volume 10.4 fl (7.4-10.4); Platelet Count Result 283 k/mm3 (150-375); Red Cell Distribution Width 15.3 % (11.5-14.5); White Blood Count 4.4 K/mm3 (4.5-10.0)
[2024-02-15 11:19] LABS: Glucose Point of Care 154 mg/dl (65-105)
[2024-02-15 12:13] LABS: Anion Gap 3 mmol/L (4-12); Blood Urea Nitrogen 22 mg/dL (7-17); Calcium 9.3 mg/dL (8.4-10.2); Carbon Dioxide 26 mmol/L (22-30); Chloride 104 mmol/L (98-107); Estimated CRCL calculation 37 ml/min; Estimated Glomerular Filt Rate 37; Glucose 154 mg/dL (65-110); Magnesium 1.6 mg/dL (1.6-2.3); Potassium 4.8 mmol/L (3.4-5.0); Sodium 133 mmol/L (137-145)
--- NOTE | 2024-02-15 13:03 | PCNFU ---
Nutrition Follow-Up Complete: Increased protein energy needs related to wound healing as evidenced by pressure injuries Adequate intakes at least 75% meals and supplements to support wound healing - Not meeting goal. Intakes 0-50%. Refused breakfast and lunch today. Goal: Pt current nutrition is Heart healthy diet. Nutritional ice cream TID for additional 270 kcal and 9 g protein each. Andre BID for wound healing (90 kcal, 2.5 g protein, arginine and glutamine for wound support). Nutrition recommendation: No new nutrition recommendations. Continue to encourage intake. Continue with nutrition care plan. Agree with current orders Last recorded weight is 100.9 kg. Bowel Motility: last BM 02/11/24 Labs Reviewed: Hgb 10.6, Hct 34.5, Na 133, GFR 37, BUN 22, Cre 1.4, Glu 154 Meds Noted: Insulin, Novolog, protonix, zofran Skin: Stage 3 pressure injury thigh, stage 2 pressure injury buttock Additional Notes:Appetite remains poor. continue to encourage intakes. Agree with orders. Monitoring intakes, weights, labs, supplement tolerance, skin, plan of care Follow up in 5 days
[2024-02-15 16:34] LABS: Glucose Point of Care 188 mg/dl (65-105)
[2024-02-15 20:46] LABS: Glucose Point of Care 155 mg/dl (65-105)
[2024-02-16] VITALS: BP 113/68; PULSE 68; PULSE 74; RESP 16; TEMP 36.7; O2SAT 100
[2024-02-16 03:15] VITALS: PULSE 65; O2SAT 97
[2024-02-16 04:00] VITALS: PULSE 63
[2024-02-16] MEDS: LEVOTHYROXINE SODIUM 112 MCG TABLET PO (05:48)
[2024-02-16 08:00] VITALS: PULSE 59
[2024-02-16 08:01] LABS: Glucose Point of Care 134 mg/dl (65-105)
[2024-02-16] MEDS: LINEZOLID 600 MG TABLET PO (08:46)
[2024-02-16] MEDS: PANTOPRAZOLE SODIUM IV 40 MG VIAL IV PUSH (08:46)
[2024-02-16] MEDS: SODIUM BICARBONATE TAB 650 MG TABLET PO (08:46)
[2024-02-16] MEDS: ASPIRIN 81 MG ENTERIC TABLET PO (08:46)
[2024-02-16] MEDS: ATORVASTATIN 20 MG TABLET PO (08:46)
[2024-02-16] MEDS: MIDODRINE HCL 10 MG TABLET PO (08:46)
[2024-02-16] MEDS: APIXABAN 5 MG TABLET PO (08:46)
[2024-02-16] MEDS: ANASTROZOLE (*CHEMO) 1 MG TABLET PO (08:46)
[2024-02-16] MEDS: MUPIROCIN 2% OINT 22 GM TUBE 1 APPLIC EACH NARE (08:46)
[2024-02-16 08:47] VITALS: PULSE 81
[2024-02-16] MEDS: AMIODARONE HCL 200 MG TABLET PO (08:47)
--- NOTE | 2024-02-16 09:18 | P.PNIM_ITS ---
Progress Note: A&P Assessment and Plan (1) Cardiac arrest: Code(s): I46.9 - Cardiac arrest, cause unspecified Status: Acute (2) Shock: Code(s): R57.9 - Shock, unspecified Status: Acute (3) Decubitus ulcer: Code(s): L89.90 - Pressure ulcer of unspecified site, unspecified stage Status: Acute (4) Electrolyte abnormality: Code(s): E87.8 - Other disorders of electrolyte and fluid balance, not elsewhere classified Status: Acute (5) Acute kidney injury: Code(s): N17.9 - Acute kidney failure, unspecified Status: Acute (6) Acute kidney injury superimposed on CKD: Code(s): N17.9 - Acute kidney failure, unspecified; N18.9 - Chronic kidney disease, unspecified Status: Acute (7) Essential (primary) hypertension: Code(s): I10 - Essential (primary) hypertension Status: Chronic Plan Cardiac arrest: Code(s): I46.9 - Cardiac arrest, cause unspecified Status: Acute Assessment and Plan: Cardiac arrest V-tach/VFib, multiple episodes of V-tach. -patient has been switched to p.o. amiodarone and patient on p.o. apixaban -cardiology following -patient was premedicated for contrast allergy prior to cardiac catheterization -02/07: Coronary angiogram showed no significant obstructive coronary artery disease, nonischemic cardiomyopathy, elevated LVEDP. According the school traffic supervisor, likely Takotsubo's cardiomyopathy 02/07/2024: Echocardiogram Summary 1. Left ventricular chamber dimension is moderately enlarged. 2. There is mildly increased left ventricular wall thickness. 3. Left ventricular systolic function is severely reduced, estimated at 20-25%. 4. Severe global hypokinesis with more pronounced hypokinesis of the anterolateral wall, anteroseptum. 5. Right ventricular systolic function is normal. 6. Left atrial chamber dimension is moderately enlarged. 7. There is mild aortic valve regurgitation. 8. There is mild to moderate mitral valve regurgitation. 9. There is small anterior pericardial effusion (2) Cardiomyopathy: Code(s): I42.9 - Cardiomyopathy, unspecified Status: Acute Assessment and Plan: Severe cardiomyopathy likely ischemic which could be the cause of recurrent VFib/V-tach -mild to moderate MVR -patient benefit from angiography given severe global hypokinesis of the anterolateral wall and anteroseptum -patient require GDMT for her cardiomyopathy, when she is off pressors and blood pressures tolerate -patient require a LifeVest on discharge prior to placement of a secondary prevention ICD Shock: Code(s): R57.9 - Shock, unspecified Status: Acute Assessment and Plan: Patient presented with hypotension. Although she does have decubitus ulcer her WBC was normal and procalcitonin level is on the lower side Patient has decreased EF of 30-35% on last echo done in June 2023, hence it appears to be a multifactorial secondary to sepsis, hypovolemia, and cardiogenic -02/06: repeat echo as above shows EF of 20-25% Patient received adequate IV fluids, but unknown how long she was hypotensive. Off Levophed -02/04: Blood cultures negative x2 -02/05: Wound culture growing MRSA -02/07: Discontinue cefepime and Flagyl continue cefepime, Flagyl, Received vancomycin (02/05) and Linezolid complete a total of 14 days of abx -TSH within normal limits -random cortisol was within normal limits -continue midodrine (4) Decubitus ulcer: Qualifiers: Pressure injury location: buttock Pressure injury stage: stage 2 Laterality: right Qualified Code(s): L89.312 - Pressure ulcer of right buttock, stage Code(s): L89.90 - Pressure ulcer of unspecified site, unspecified stage Status: Acute Assessment and Plan: Evaluated by wound care nurses. Continue local wound care. Wound cultures and antibiotics as above total abx of 14 days, as above (5) Diabetes type 2, controlled: Qualifiers: Diabetes mellitus alf insulin use: without buttermaker helper use Diabetes mellitus complication status: without complication Qualified Code(s): E11.9 - Type 2 diabetes mellitus without complications Code(s): E11.9 - Type 2 diabetes mellitus without complications Status: Acute Assessment and Plan: Sliding scale insulin and Accu-Chek (6) Electrolyte abnormality: Code(s): E87.8 - Other disorders of electrolyte and fluid balance, not elsewhere classified Status: Acute Assessment and Plan: Replace potassium, magnesium (7) Metabolic acidosis: Code(s): E87.20 - Acidosis, unspecified Status: Acute Assessment and Plan: Resolved Secondary to CRICKET. Due to hypotension and shock -off bicarb infusion (8) Acute kidney injury: Code(s): N17.9 - Acute kidney failure, unspecified Status: Acute Assessment and Plan: Presented with acute kidney injury and creatinine of 2.70 on admission CK level mildly elevated at 238 Likely secondary to hypotension and hypovolemia S/p IVF Cr 1.4 monitor rodo DVT prophylaxis -continue Eliquis Stress ulcer prophylaxis -Protonix Nutrition -heart healthy diet Code Status: Patient wishes to be Full Code Patient will be discharged large home today Subjective Date/time seen: 02/16/24 09:18 Interval history: I saw and examined patient today. Patient patient has no new issues even over the night, patients denies lightheadedness, palpitation, chest pain, shortness breast. Patient has a general weakness patient is afebrile, blood pressure stable Exam Narrative: GENERAL: Ill-appearing, frail, in no acute distress. - EYES: EOMI. Anicteric. - HENT: Moist mucous membranes. - LUNGS: Clear to auscultation bilateral ly, no wheezing, rhonchi, or rales. - CARDIOVASCULAR: Irregular rhythm,. No murmur. No JVD. - ABDOMEN: Soft, non-tender and non-dist ended. No palpable masses. - EXTREMITIES: No edema. Peripheral puls es 2+. Non-tender. - NEUROLOGIC: No focal neurological defi cits. CN II-XII grossly intact. General weakness, - PSYCHIATRIC: Awake, Alert and oriented x 3. Appropriate mood and affect. - SKIN: No rashes or lesions. Warm. - LYMPH: No cervical lymphadenopathy. Objective Data Vital Signs Vital Signs: Vital Signs - 24 hr 02/15/24 12:00 02/15/24 15:52 02/15/24 16:00 Temperature 98.1 F Pulse Rate 118 H 98 117 H Respiratory Rate 22 H Blood Pressure 113/67 Pulse Oximetry 98 Oxygen Delivery 02/15/24 20:00 02/15/24 20:00 02/15/24 22:20 Temperature Pulse Rate 71 75 Respiratory Rate Blood Pressure Pulse Oximetry 96 Oxygen Delivery Room Air Autopap 02/16/24 00:00 02/16/24 00:00 02/16/24 03:15 Temperature 98.1 F Pulse Rate 74 68 65 Respiratory Rate 16 Blood Pressure 113/68 Pulse Oximetry 100 97 Oxygen Delivery Autopap 02/16/24 04:00 02/16/24 08:00 02/16/24 08:47 Temperature Pulse Rate 63 81 Respiratory Rate Blood Pressure Pulse Oximetry Oxygen Delivery Room Air Intake/Output Intake/Output: Intake & Output 02/13/24 02/14/24 02/15/24 02/16/24 23:59 23:59 23:59 23:59 Intake Total 1390 1400 1520 500 Output Total 400 350 0 200 Balance 990 1050 1520 300 Meds/Results Medications: Active Medications Generic Name Dose Route Start Last Admin Trade Name Freq PRN Reason Stop Dose Admin Albuterol 1 puff 02/05/24 23:39 Albuterol Sulfate (*Sp) Aerosol 1 Puff INHALATION Q4HRT PRN shortness of breath or wheezing Amiodarone HCl 200 mg 02/09/24 13:15 02/16/24 08:47 Amiodarone Hcl 200 Mg Tablet PO 200 mg DAILY@0800 KEATON Administration Anastrozole 1 mg 02/06/24 09:00 02/16/24 08:46 Anastrozole (*Chemo) 1 Mg Tablet PO 1 mg DAILY KEATON Administration Apixaban 5 mg 02/09/24 09:15 02/16/24 08:46 Apixaban 5 Mg Tablet PO 5 mg Q12HR KEATON Administration Aspirin 81 mg 02/07/24 09:55 02/16/24 08:46 Aspirin 81 Mg Enteric Tablet PO 81 mg QAM KEATON Administration Atorvastatin Calcium 20 mg 02/11/24 09:00 02/16/24 08:46 Atorvastatin 20 Mg Tablet PO 20 mg DAILY KEATON Administration Dextrose 12.5 gm 02/05/24 19:30 Dextrose 50% 25 Gm/50 Ml Syringe IV PUSH PRN PRN Hypoglycemia Protocol Glucagon 1 mg 02/05/24 19:30 Glucagon For Inj 1 Mg Vial IM PRN PRN Hypoglycemia Protocol Glucose 15 gm 02/05/24 19:30 Glucose Oral Gel 15 Gm Of Glucse In 37.5 Gm Tube PO PRN PRN Hypoglycemia Protocol Dextrose 1,000 mls @ 100 mls/hr 02/05/24 19:30 Dextrose 5% 1,000 Ml IVPB PRN PRN Hypoglycemia Protocol Insulin Aspart 4 - 8 units 02/06/24 08:00 02/16/24 08:55 Insulin Aspart (*Bkc) 100 Units/Ml SUB-Q Not Given TIDWM KEATON Protocol Levothyroxine Sodium 112 mcg 02/06/24 06:30 02/16/24 05:48 Levothyroxine Sodium 112 Mcg Tablet PO 112 mcg DAILY@0630 KEATON Administration Linezolid 600 mg 02/14/24 21:00 02/16/24 08:46 Linezolid 600 Mg Tablet PO 02/18/24 21:01 600 mg Q12HR KEATON Administration Midodrine 10 mg 02/06/24 09:00 02/16/24 08:46 Midodrine Hcl 10 Mg Tablet PO 10 mg TID KEATON Administration Ondansetron HCl 4 mg 02/09/24 04:25 02/09/24 04:15 Ondansetron Inj 4 Mg/2 Ml Vial IV PUSH 4 mg Q6H PRN Administration Nausea And Vomiting Pantoprazole Sodium 40 mg 02/05/24 19:35 02/16/24 08:46 Pantoprazole Sodium Iv 40 Mg Vial IV PUSH 40 mg QAM KEATON Administration Sodium Bicarbonate 650 mg 02/06/24 09:00 02/16/24 08:46 Sodium Bicarbonate Tab 650 Mg Tablet PO 650 mg BID KEATON Administration Radiology Results: ITS Impressions Abdomen/Pelvis CT 02/05/24 16:21 IMPRESSION: Mild cardiomegaly, coronary atherosclerosis Probable prior left thoracotomy Status post cholecystectomy Suggestion of decubitus ulcer and underlying inflammation capsularis and/or pulmonary edema of the medial right buttock Extensive degenerative changes of the thoracic and lumbar spine and the hips, especially the left hip ADDENDUM: 02/05/24 1804 Correction: IMPRESSIONS: Suggestion of decubitus ulcer and underlying inflammation/cellulitis and or subcutaneous edema of the medial right buttock Chest X-Ray 02/11/24 08:50 IMPRESSION: 1. Cardiomegaly with pulmonary vascular congestion but improvement in prior pulmonary edema. 2. Increased small bilateral pleural effusions with associated atelectasis versus pneumonia in the bilateral lower lung zones. Labs Labs: Laboratory Results - last 24 hr 02/15/24 02/15/24 02/15/24 10:10 10:10 10:10 WBC 4.4 L RBC 3.70 L Hgb 10.6 L Hct 34.5 L MCV 93.2 MCH 28.6 MCHC 30.7 L RDW 15.3 H Plt Count 283 MPV 10.4 Sodium Cancelled 133 L Potassium Cancelled 4.8 Chloride Cancelled Carbon Dioxide Anion Gap BUN Creatinine Estim Creat Clear Calc Estimated GFR Glucose POC Capillary Glucose Calcium Magnesium 02/15/24 02/15/24 02/15/24 10:10 10:10 10:10 WBC RBC Hgb Hct MCV MCH MCHC RDW Plt Count MPV Sodium Potassium Chloride 104 Carbon Dioxide Cancelled 26 Anion Gap Cancelled 3 L BUN Cancelled Creatinine Estim Creat Clear Calc Estimated GFR Glucose POC Capillary Glucose Calcium Magnesium 02/15/24 02/15/24 02/15/24 10:10 10:10 10:10 WBC RBC Hgb Hct MCV MCH MCHC RDW Plt Count MPV Sodium Potassium Chloride Carbon Dioxide Anion Gap BUN 22 H Creatinine Cancelled 1.40 H Estim Creat Clear Calc Cancelled 37 Estimated GFR Cancelled Glucose POC Capillary Glucose Calcium Magnesium 02/15/24 02/15/24 02/15/24 10:10 10:10 10:10 WBC RBC Hgb Hct MCV MCH MCHC RDW Plt Count MPV Sodium Potassium Chloride Carbon Dioxide Anion Gap BUN Creatinine Estim Creat Clear Calc Estimated GFR 37 L Glucose Cancelled 154 H POC Capillary Glucose Calcium Cancelled 9.3 Magnesium 1.6 02/15/24 02/15/24 02/15/24 11:09 15:40 20:44 WBC RBC Hgb Hct MCV MCH MCHC RDW Plt Count MPV Sodium Potassium Chloride Carbon Dioxide Anion Gap BUN Creatinine Estim Creat Clear Calc Estimated GFR Glucose POC Capillary Glucose 154 H 188 H 155 H Calcium Magnesium 02/16/24 07:57 WBC RBC Hgb Hct MCV MCH MCHC RDW Plt Count MPV Sodium Potassium Chloride Carbon Dioxide Anion Gap BUN Creatinine Estim Creat Clear Calc Estimated GFR Glucose POC Capillary Glucose 134 H Calcium Magnesium
[2024-02-16 09:52] LABS: Magnesium 1.4 mg/dL (1.6-2.3)
[2024-02-16 12:00] VITALS: PULSE 91
[2024-02-16 12:09] LABS: Glucose Point of Care 167 mg/dl (65-105)
--- NOTE | 2024-02-16 12:32 | P.DS_ITS ---
DS: Admitting Diagnosis Discharge Date 02/16/24 Admitting Diagnosis (1) Cardiac arrest: Code(s): I46.9 - Cardiac arrest, cause unspecified Status: Acute (2) Shock: Code(s): R57.9 - Shock, unspecified Status: Acute (3) Decubitus ulcer: Code(s): L89.90 - Pressure ulcer of unspecified site, unspecified stage Status: Acute (4) Electrolyte abnormality: Code(s): E87.8 - Other disorders of electrolyte and fluid balance, not elsewhere classified Status: Acute (5) Acute kidney injury: Code(s): N17.9 - Acute kidney failure, unspecified Status: Acute (6) Acute kidney injury superimposed on CKD: Code(s): N17.9 - Acute kidney failure, unspecified; N18.9 - Chronic kidney disease, unspecified Status: Acute (7) Essential (primary) hypertension: Code(s): I10 - Essential (primary) hypertension Status: Chronic DS: Discharge Diagnosis Discharge Diagnosis (1) Cardiac arrest: Code(s): I46.9 - Cardiac arrest, cause unspecified Status: Acute (2) Shock: Code(s): R57.9 - Shock, unspecified Status: Acute (3) Decubitus ulcer: Code(s): L89.90 - Pressure ulcer of unspecified site, unspecified stage Status: Acute (4) Electrolyte abnormality: Code(s): E87.8 - Other disorders of electrolyte and fluid balance, not elsewhere classified Status: Acute (5) Acute kidney injury: Code(s): N17.9 - Acute kidney failure, unspecified Status: Acute (6) Acute kidney injury superimposed on CKD: Code(s): N17.9 - Acute kidney failure, unspecified; N18.9 - Chronic kidney disease, unspecified Status: Acute (7) Essential (primary) hypertension: Code(s): I10 - Essential (primary) hypertension Status: Chronic DS: Summary Hospital Course Hospital Course: Cardiac arrest: Code(s): I46.9 - Cardiac arrest, cause unspecified Status: Acute Assessment and Plan: Cardiac arrest V-tach/VFib, multiple episodes of V-tach. -patient has been switched to p.o. amiodarone and patient on p.o. apixaban -cardiology following -patient was premedicated for contrast allergy prior to cardiac catheterization -02/07: Coronary angiogram showed no significant obstructive coronary artery disease, nonischemic cardiomyopathy, elevated LVEDP. According the interactive account manager, likely Takotsubo's cardiomyopathy 02/07/2024: Echocardiogram Summary 1. Left ventricular chamber dimension is moderately enlarged. 2. There is mildly increased left ventricular wall thickness. 3. Left ventricular systolic function is severely reduced, estimated at 20-25%. 4. Severe global hypokinesis with more pronounced hypokinesis of the anterolateral wall, anteroseptum. 5. Right ventricular systolic function is normal. 6. Left atrial chamber dimension is moderately enlarged. 7. There is mild aortic valve regurgitation. 8. There is mild to moderate mitral valve regurgitation. 9. There is small anterior pericardial effusion Continue amiodarone 200 mg daily p.o., Xarelto 5 mg b.i.d. p.o. per interactive account manager recommendation [employer] Counselor provided LifeVest (2) Cardiomyopathy: Code(s): I42.9 - Cardiomyopathy, unspecified Status: Acute Assessment and Plan: Severe cardiomyopathy likely ischemic which could be the cause of recurrent VFib/V-tach -mild to moderate MVR -patient benefit from angiography given severe global hypokinesis of the anterolateral wall and anteroseptum -patient require GDMT for her cardiomyopathy, when she is off pressors and blood pressures tolerate -patient require a LifeVest on discharge prior to placement of a secondary prevention ICD Shock: Code(s): R57.9 - Shock, unspecified Status: Acute Assessment and Plan: Patient presented with hypotension. Although she does have decubitus ulcer her WBC was normal and procalcitonin level is on the lower side Patient has decreased EF of 30-35% on last echo done in June 2023, hence it appears to be a multifactorial secondary to sepsis, hypovolemia, and cardiogenic -02/06: repeat echo as above shows EF of 20-25% Patient received adequate IV fluids, but unknown how long she was hypotensive. Off Levophed -02/04: Blood cultures negative x2 -02/05: Wound culture growing MRSA -02/07: Discontinue cefepime and Flagyl continue cefepime, Flagyl, Received vancomycin (02/05) and Linezolid complete a total of 14 days of abx -TSH within normal limits -random cortisol was within normal limits -continue midodrine Blood pressure stable (4) Decubitus ulcer: Qualifiers: Pressure injury location: buttock Pressure injury stage: stage 2 Lat erality: right Qualified Code(s): L89.312 - Pressure ulcer of right buttock, stage Code(s): L89.90 - Pressure ulcer of unspecified site, unspecified stage Status: Acute Assessment and Plan: Evaluated by wound care nurses. Continue local wound care. Wound cultures and antibiotics as above total abx of 14 days, as above Continue Zyvox for 5 more days after discharge (5) Diabetes type 2, controlled: Qualifiers: Diabetes mellitus medical terminologist insulin use: without medical terminologist use Diabetes mellitus complication status: without complication Qualified Code(s): E11.9 - Type 2 diabetes mellitus without complications Code(s): E11.9 - Type 2 diabetes mellitus without complications Status: Acute Assessment and Plan: Sliding scale insulin and Accu-Chek Resume home medication on discharge (6) Electrolyte abnormality: Code(s): E87.8 - Other disorders of electrolyte and fluid balance, not elsewhere classified Status: Acute Assessment and Plan: Replaced potassium, magnesium (7) Metabolic acidosis: Code(s): E87.20 - Acidosis, unspecified Status: Acute Assessment and Plan: Secondary to CRICKET. Due to hypotension and shock -off bicarb infusion Resolved (8) Acute kidney injury: Code(s): N17.9 - Acute kidney failure, unspecified Status: Acute Assessment and Plan: Presented with acute kidney injury and creatinine of 2.70 on admission CK level mildly elevated at 238 Likely secondary to hypotension and hypovolemia S/p IVF Cr 1.4 monitor Kidney function stable Patient will be discharged large home today Time Spent with Patient Time attestation: Total time spent providing and/or coordinating discharge services: Exam Narrative: GENERAL: Ill-appearing, frail, in no acute distress. - EYES: EOMI. Anicteric. - HENT: Moist mucous membranes. - LUNGS: Clear to auscultation bilateral ly, no wheezing, rhonchi, or rales. - CARDIOVASCULAR: Irregular rhythm,. No murmur. No JVD. - ABDOMEN: Soft, non-tender and non-dist ended. No palpable masses. - EXTREMITIES: No edema. Peripheral puls es 2+. Non-tender. - NEUROLOGIC: No focal neurological defi cits. CN II-XII grossly intact. General weakness, - PSYCHIATRIC: Awake, Alert and oriented x 3. Appropriate mood and affect. - SKIN: No rashes or lesions. Warm. - LYMPH: No cervical lymphadenopathy. DS: Data Data Completed and Pending Labs on day of discharge: Labs from last 24 hours 02/16/24 02/16/24 02/16/24 12:05 09:31 07:57 POC Capillary Glucose 167 H 134 H Magnesium 1.4 L 02/15/24 02/15/24 20:44 15:40 POC Capillary Glucose 155 H 188 H Magnesium Discharge Plan Discharge Attending physician on discharge: Ganesh Rodarte Consulting providers: Eduard Ramirez; Angel Montana Discharging Clinician: Ganesh Rodarte Anticipated Discharge Date/Time: 02/16/24 12:34 Patient Disposition: SNF Activity: as tolerated Diet: as tolerated and heart healthy Patient Instructions: Apixaban (By mouth), Pain Management (DC) Patient Language: Italian Stand Alone Forms: General Discharge Information Follow-up/Referrals: Angel Montana MD [Physician] - (Patient needs to see interactive account manager at scheduled appointment) Bryan Valiente MD [Primary Care Provider] - (Patient needs to see primary care doctor in 1 week) Discharge Medications: New midodrine 10 mg Tablet 10 mg PO TID Qty: 90 0RF aspirin 81 mg Tablet,Delayed Release (Dr/Ec) 81 mg PO QAM Qty: 60 0RF amiodarone [Pacerone] 200 mg Tablet 200 mg PO DAILY@0800 Qty: 30 1RF linezolid 600 mg Tablet 600 mg PO Q12HR Qty: 11 0RF atorvastatin 20 mg Tablet 20 mg PO DAILY Qty: 30 1RF Continued (DME) blood-glucose meter [Accu-Chek Guide Glucose Meter] Misc See Rx Instructions .Route Qty: 1 0RF Rx Instructions: use to check BID glucose (DME) Mepilex Border Sacrum 9.2 X 9.2 bandage See Rx Instructions .Route Qty: 5 1RF Rx Instructions: apply to cover area of breakdown, changing q72 hours or prn ascorbate calcium (vitamin C) 500 mg tablet 500 mg PO DAILY albuterol sulfate [ProAir HFA] 90 mcg/actuation HFA aerosol inhaler 1 inh INHALATION Q4H PRN (Reason: shortness of breath or wheezing) Qty: 6.7 3RF cetirizine [Zyrtec] 10 mg tablet 10 mg PO DAILY Qty: 7 0RF atorvastatin 10 mg Tablet 10 mg PO DAILY indapamide 1.25 mg tablet 1.25 mg PO DAILY anastrozole 1 mg tablet 1 mg PO DAILY donepezil 10 mg tablet 10 mg PO QPM metoprolol succinate 100 mg tablet extended release 24 hr 100 mg PO DAILY sertraline 100 mg tablet 200 mg PO DAILY cyanocobalamin (vitamin B-12) [Vitamin B-12] 1,000 mcg tablet 1,000 mcg PO DAILY spironolactone 25 mg tablet 12.5 mg PO DAILY ferrous sulfate [FeroSul] 325 mg (65 mg iron) tablet 325 mg PO BID levothyroxine 112 mcg tablet 112 mcg PO DAILY memantine 10 mg tablet 10 mg PO BID VITAMIN D-3 1000UNIT TAB 1 cap PO DAILY (DME) blood sugar diagnostic [Contour Next Test Strips] Strip See Rx Instructions .ROUTE .MEDSUPPLY Qty: 100 0RF Rx Instructions: check glucose tid for diabetes (DME) Blood Glucose Test Strip See Rx Instructions .MEDSUPPLY Qty: 100 0RF Rx Instructions: Use QAC and QHS with SSI (DME) lancets [Lancets, Super Thin] Misc See Rx Instructions .ROUTE .MEDSUPPLY Qty: 100 0RF Rx Instructions: As directed (DME) hydrocolloid dressing [DuoDERM CGF Border Dressing] 4 X 4 bandage See Rx Instructions .ROUTE .MEDSUPPLY Qty: 20 0RF Rx Instructions: As directed (DME) silicone,dressing-foam bandage 3 X 3 bandage See Rx Instructions .Route Qty: 10 1RF Rx Instructions: As directed for application to buttock wound metformin 1,000 mg tablet 1,000 mg PO BID Qty: 180 1RF potassium chloride 20 mEq tablet extended release 20 meq PO DAILY Qty: 30 3RF Eliquis 5 mg tablet 5 mg PO Q12HR Qty: 60 3RF furosemide 20 mg tablet 20 mg PO BID Qty: 60 0RF sodium chloride 1,000 mg tablet,soluble 1,000 mg PO BID Qty: 60 1RF Jardiance 10 mg tablet 10 mg PO DAILY Qty: 30 3RF Date of admission: 02/05/24 18:53 Primary Care Provider: Bryan Valiente Admitting Provider: Jayro Younger Attending physician on admission: Jayro Younger Condition: Serious
== END 2024-02-16 13:45 | DRG 871 ==
LOC: ANHED 12:53 → ANHICU 21:35 → ANHIMU 02-12 15:10 → ANH3MED 02-16 12:35 → ANHIMU 02-17 11:28
PROVIDERS: Emergency Medicine; Internal Medicine; Internal Medicine Interventional Cardiology; Physician Assistant; Specialist; Student in an Organized Health Care Education/Training Program; Admitting Provider Internal Medicine; Emergency Provider Student in an Organized Health Care Education/Training Program; PCP Family Medicine; Visit Provider Hospitalist
PROC: 4A023N7 Measurement of Cardiac Sampling and Pressure, Left Heart, Percutaneous Approach (ICD-10-PCS; CPT 93452; principal; 2024-02-08 13:00)
PROC: 4A023N7 Measurement of Cardiac Sampling and Pressure, Left Heart, Percutaneous Approach (ICD-10-PCS; CPT 36140; 2024-02-08 13:00)
DX: A41.9 Sepsis, unspecified organism (principal); I46.9 Cardiac arrest, cause unspecified; R57.0 Cardiogenic shock; I50.23 Acute on chronic systolic (congestive) heart failure; I49.01 Ventricular fibrillation; R65.21 Severe sepsis with septic shock; I51.81 Takotsubo syndrome; I13.0 Hypertensive heart and chronic kidney disease with heart failure and stage 1 through stage 4 chronic kidney disease, or unspecified chronic kidney disease; I50.32 Chronic diastolic (congestive) heart failure; N17.9 Acute kidney failure, unspecified; L12.0 Bullous pemphigoid; I47.10 Supraventricular tachycardia, unspecified; L89.312 Pressure ulcer of right buttock, stage 2; E87.6 Hypokalemia; N18.30 Chronic kidney disease, stage 3 unspecified; I48.0 Paroxysmal atrial fibrillation; D63.8 Anemia in other chronic diseases classified elsewhere; J44.9 Chronic obstructive pulmonary disease, unspecified; E11.22 Type 2 diabetes mellitus with diabetic chronic kidney disease; E78.5 Hyperlipidemia, unspecified; E03.9 Hypothyroidism, unspecified; Z20.822 Contact with and (suspected) exposure to COVID-19; M81.0 Age-related osteoporosis without current pathological fracture; M17.0 Bilateral primary osteoarthritis of knee; G47.33 Obstructive sleep apnea (adult) (pediatric); F41.9 Anxiety disorder, unspecified; F32.A Depression, unspecified; Z79.01 Long term (current) use of anticoagulants; Z85.3 Personal history of malignant neoplasm of breast; Z86.711 Personal history of pulmonary embolism; Z86.718 Personal history of other venous thrombosis and embolism; Z86.0101 Personal history of adenomatous and serrated colon polyps; Z87.442 Personal history of urinary calculi; Z87.11 Personal history of peptic ulcer disease
CPT/HCPCS: 36140; 36415; 36556; 36600; 71045; 71046; 74176; 80048; 80053; 80202; 81003; 82248; 82375; 82533; 82550; 82570; 82805; 82948; 83036; 83050; 83605; 83690; 83735; 84100; 84145; 84156; 84300; 84443; 84484; 84540; 85018; 85025; 85027; 85610; 85730; 86140; 87040; 87070; 87075; 87181; 87205; 87637; 87641; 92950; 93005; 93458; 96365; 96366; 96375; 97110; 97162; 97166; 97530; 97535; 99291; A9270; C1751; C1769; C1887; C1894; C8929; J0171; J0282; J0692; J0696; J1200; J1644; J1815; J1836; J1940; J2003; J2250; J2270; J2305; J2405; J2470; J2919; J3010; J3370; J3475; J3480; J7040; J7050; J7120; J7512; P9047; Q9957

== ENCOUNTER 2024-05-07 09:11 | Inpatient (IN) | payer MEDICARE, SELFPAY ==
[2024-05-07] VITALS (17 sets, daily range): BP systolic 91–111; BP diastolic 55–71; PULSE 64–86; RESP 16–27; TEMP 36.4–36.8; O2SAT 55–100; BMI 25.8
--- NOTE | ~2024-05-07 | XR_ITS ---
XR chest 2V Ordering provider: Briana Ballesteros III, DO History: 74 years Female with . cough, SOB, hypoxia . Comparison: February 11, 2024 FINDINGS: MEDIASTINUM: The cardiac silhouette is moderately enlarged. Devices are projected over the chest and upper abdomen. Right Port-A-Cath with the tip overlying the right vena cava. LUNGS: No effusions or pneumothorax. Opacification the left lung base is seen suggestive of atelectas is versus pneumonia. Possibility of pleural thickening in the left lung base laterally is not exclude d. OTHER: No free air under the diaphragm. Severe kyphosis with degenerative changes of the spine. IMPRESSION: Left basilar atelectasis versus pneumonia. Highly suggestive pleural thickening in the left lung base laterally. Reviewed, dictated and finalized at location A.
--- NOTE | ~2024-05-07 | XR_ITS ---
EXAMINATION: XR chest 1V portable DATE: 05/11/2024 12:00 INDICATION: Cough. TECHNIQUE: A single frontal view of the chest was obtained on 2 radiographs. COMPARISON: Chest 2 views 05/07/2024, CT abdomen and pelvis 02/05/2024 FINDINGS: There are airspace opacities in right mid and upper lung zones and left mid and lower lung zones. No pleural effusion or pneumothorax. Cardiomegaly is noted. There is a right internal jugular port with tip in right atrium. Surgical clips in the right upper quadrant are likely from cholecystec naima. There are surgical clips in left axilla. There are multiple old left rib fractures. IMPRESSION: 1. Airspace opacities in right mid and upper lung zones and left mid and lower lung zones with interv al worsening, consistent with pulmonary edema versus pneumonia. 2. Cardiomegaly. Reviewed, dictated and finalized at location L. IMPRESSION: 1. Airspace opacities in right mid and upper lung zones and left mid and lower lung zones with interval worsening, consistent with pulmonary edema versus pneu monia. 2. Cardiomegaly.
--- NOTE | 2024-05-07 09:21 | ECG_ITS ---
Test Date: 2024-05-07 09:22:54 Measurements Intervals [place] Rate: 63 P: 28 [place]: 151 QRS: -10 QRSD: 74 T: 0 QT: 176 QTc: 181 Interpretive Statements SINUS RHYTHM LOW QRS VOLTAGE IN PRECORDIAL LEADS [QRS DEFLECTION < 1.0 mV IN CHEST LEADS] POSSIBLE RIGHT VENTRICULAR CONDUCTION DELAY [RSR (QR) IN V1/V2] WARNING: DATA QUALITY MAY AFFECT INTERPRETATION Compared to ECG 02/07/2024 09:56:37 Ventricular premature complex(es) no longer present First degree AV block no longer present Myocardial infarct finding no longer present Electronically Signed On 05-07-2024 11:42:03 CDT by Adal Aranda M.D.
--- NOTE | 2024-05-07 09:21 | PC.NURSE ---
Mona contacted d/t both life pack batteries reading defective . [employer] states the batteries are not being changed as frequently as they should be. [employer] rep states the battery was last changed 05/05 and 05/02 - batteries need to be changed every 24 hours. Per rep, she will look into if patient needs new batteries or not.
--- NOTE | 2024-05-07 09:29 | PC.NURSE ---
SPENSER Lau, called and informed patient was here and there was an issue with life pack batteries.
--- NOTE | 2024-05-07 09:36 | ECG_ITS ---
Test Date: 2024-05-07 09:36:29 Measurements Intervals [place] Rate: 67 P: 0 [place]: 0 QRS: -6 QRSD: 84 T: 36 QT: 399 QTc: 423 Interpretive Statements SINUS RHYTHM LOW QRS VOLTAGE IN PRECORDIAL LEADS [QRS DEFLECTION < 1.0 mV IN CHEST LEADS] POSSIBLE RIGHT VENTRICULAR CONDUCTION DELAY [RSR (QR) IN V1/V2] NONSPECIFIC ST & T-WAVE ABNORMALITY Compared to ECG 05/07/2024 09:22:54 T-wave abnormality now present Electronically Signed On 05-07-2024 14:03:00 CDT by Adal Aranda M.D.
--- NOTE | 2024-05-07 09:42 | ED.SOB ---
HPI - SOB/Dyspnea General Chief Complaint: Shortness of Breath/Dyspnea Stated Complaint: SOB Time Seen by Provider: 05/07/24 09:35 Source: patient and EMS Mode of arrival: EMS Limitations: dementia History of Present Illness HPI Narrative: This is a 74 year old female that presents to the ER for hypoxia. Reportedly patient was not wearing her CPAP this morning. Found to be hypoxic with oxygen saturations in the 70s. They were unable to get her oxygen saturation to come up which prompted them to send her in for evaluation. Patient does have a non-productive cough. Reportedly was just treated with antibiotics for acute bronchitis. Related Data Home Medications ?Medication ?Instructions ?Recorded ?Confirmed ?Last Taken ?Type cyanocobalamin (vitamin B-12) 1,000 mcg PO DAILY 02/05/24 05/07/24 Unknown History 1,000 mcg tablet (Vitamin B-12) ferrous sulfate 325 mg (65 mg 325 mg PO BID 02/05/24 05/07/24 Unknown History iron) tablet (FeroSul) levothyroxine 112 mcg tablet 112 mcg PO DAILY 02/05/24 05/07/24 Unknown History memantine 10 mg tablet 10 mg PO BID 02/05/24 05/07/24 Unknown History sertraline 100 mg tablet 200 mg PO DAILY 02/05/24 05/07/24 Unknown History spironolactone 25 mg tablet 12.5 mg PO DAILY 02/05/24 05/07/24 Unknown History acetaminophen 325 mg capsule 650 mg PO Q4H PRN fever or pain 05/07/24 05/07/24 Unknown History benzonatate 200 mg capsule 200 mg PO BID PRN cough 05/07/24 05/07/24 Unknown History cholecalciferol (vitamin D3) 50 6,000 unit PO DAILY 05/07/24 05/07/24 Unknown History mcg (2,000 unit) capsule empagliflozin 25 mg tablet 25 mg PO DAILY 05/07/24 05/07/24 Unknown History (Jardiance) polyethylene glycol 3350 17 gram 17 g PO DAILY 05/07/24 05/07/24 Unknown History oral powder packet (Miralax) Allergies Allergy/AdvReac Type Severity Reaction Status Date / Time amoxicillin Allergy Severe DIFFICULTY Verified 05/07/24 09:52 BREATHING/HIVES Iodinated Contrast Media Allergy Severe Anaphylaxis Verified 05/07/24 09:52 lisinopril Allergy Severe Swelling Verified 05/07/24 09:52 of Lip/Tongue/Throat methotrexate Allergy Severe Hives Verified 05/07/24 09:52 Penicillins Allergy Severe DIFFICULTY Verified 05/07/24 09:52 BREATHING/HIVES tetracycline Allergy Severe Hives Verified 05/07/24 09:52 metformin Allergy Unknown Jittery Verified 05/07/24 09:52 adhesive tape AdvReac Intermediate SKIN PEELS Verified 05/07/24 09:52 OFF codeine AdvReac Mild NAUSEA/VOMI Verified 05/07/24 09:52 TING ioversol AdvReac Unknown DOESN'T Verified 05/07/24 09:52 REMEMBER Review of Systems Review of Systems: ROS unobtainable: Yes unobtainable due to medical condition [facility] Past Medical History Medical History (Updated 05/07/24 @ 13:01 by Paige Madrid PA-C) Acute anxiety Ataxia Low vitamin B12 level Dementia on donepezil and memantine Urine incontinence Depression with anxiety Degenerative arthritis of knee, bilateral Cyst Obesity 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 Bullous pemphigoid On daily prednisone. 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 Neoadjuvant chemotherapy with TCH and Perjeta. status left breast mastectomy with sentinel lymph node biopsy on 07/31/2019. Obstructive sleep apnea on CPAP Pulmonary embolism Surgical History Surgical History H/O dilation and curettage H/O oophorectomy one ovary-unsure side History of cardiac catheterization History of total mastectomy of left breast (~07/2019) History of cystoscopy With lithotripsy and stent placement. History of cholecystectomy History of bilateral cataract extraction History of tubal ligation History of appendectomy History of hysterectomy Status post cataract extraction of both eyes with insertion of intraocular lens Hx of cholecystectomy History of partial mastectomy of left breast Approximately 2018 Family History Family History Father Acute myocardial infarction Father Cerebrovascular accident Acute myocardial infarction Tobacco abuse Mother Cerebrovascular accident Sibling No problems noted. Social History Social History Social History: The patient is never and has no children. 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 She is currently in assisted living at [facility], and has been there for a couple of months since she started chemotherapy. She also owns a home in [place], where she hopes to return. Her [id number], Sofia, is her surrogate decision maker. She wishes to be a full code. 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 Gender identity (if verbalized by the patient): Female Sexual Orientation (if Verbalized by the Patient): Straight or Heterosexual Spiritual care concerns: No Agree to blood products: Yes Exam Narrative: GENERAL: Elderly, well-nourished, and in no acute distress. HEAD: Normocephalic, atraumatic. EYES: EOMI. ENT: Nares clear, no rhinorrhea or epistaxis. Mucous membranes moist. Oropharynx without tonsillar hypertrophy exudate or other lesions. NECK: Supple. No adenopathy or masses. No JVD CHEST: No respiratory distress. Lung sounds coarse, clears with coughing. Rales at the bases. No wheezes or rhonchi HEART: Regular rate and rhythm. No murmur heard. Normal peripheral pulses. EXTREMITIES: Normal range of motion. No edema. SKIN: Warm, dry, no rash. NEURO: No focal deficits. Alert and oriented x3. PSYCH: Normal mood and affect Course Course Emergency Course: patient updated on her workup and recommendation for admission Consultations Consultation #1: Spoke with hospitalist about patient and workup who accepts admission Date: 05/07/24 Vital Signs Vital signs: Vital Signs Temperature 98.2 F 05/07/24 09:06 Pulse Rate 65 05/07/24 09:06 Respiratory Rate 16 05/07/24 09:06 Blood Pressure 91/56 L 05/07/24 09:06 Pulse Oximetry 99 05/07/24 09:06 Oxygen Delivery Nasal Cannula 05/07/24 09:06 Oxygen Flow Rate 2 05/07/24 09:06 Temperature 98.3 F 05/07/24 15:57 Pulse Rate 74 05/07/24 15:57 Respiratory Rate 22 H 05/07/24 15:57 Blood Pressure 109/56 L 05/07/24 15:57 Pulse Oximetry 91 05/07/24 15:57 Oxygen Delivery Nasal Cannula 05/07/24 09:46 Oxygen Flow Rate 2 05/07/24 09:46 MDM - SOB/Dyspnea MDM Narrative Medical decision making narrative: Patient presents to the emergency department for hypoxia at her facility today. Patient wears CPAP at night, was found not wearing her CPAP this morning. Reportedly oxygen saturations were in the 70s. Patient is on oxygen via nasal cannula in the ER, her saturation has remained stable. Blood pressure was soft upon arrival, but normalized without intervention. Cbc without leukocytosis. Patient's hemoglobin is 7.8, which is possibly slightly lower than baseline. Metabolic panel with kidney function appears stable. Influenza, RSV and COVID screens are negative. Chest x-ray shows pneumonia in the left lower lobe. Blood cultures obtained, patient started on IV antibiotics. Patient will be admitted for further management. Spoke with hospitalist about patient and workup who accepts admission We have been in contact with Mona about patient's Lifevest. It appears it has not been charged sufficiently at her facility. Care coordination consulted for further management Differential Diagnosis Differential diagnosis: Likely congestive heart failure, community acquired pneumonia and other (upper respiratory infection, bronchitis) Lab Data Attestation: I reviewed the patient's lab results. 05/07/24 09:35 05/07/24 09:35 Labs: Lab Results 05/07/24 05/07/24 Range/Units 09:34 09:35 WBC 9.8 (4.5-10.0) K/mm3 RBC 2.72 L (4.2-5.4) M/mm3 Hgb 7.8 L (12.0-15.0) g/dL Hct 25.9 L (37.0-47.0) % MCV 95.2 (80-100) fl MCH 28.7 (26-34) pg MCHC 30.1 L (32-36) g/dl RDW 16.9 H (11.5-14.5) % Plt Count 542 H D (150-375) k/mm3 MPV 10.0 (7.4-10.4) fl Immature Gran % (Auto) 0.4 (0-0.5) % Neut % (Auto) 84.7 H (45.5-73.1) % Lymph % (Auto) 8.0 L (18.3-44.2) % [place] % (Auto) 5.9 (2.6-8.5) % Eos % (Auto) 0.8 (0-4.4) % Baso % (Auto) 0.2 (0.2-1.2) % Lymph # (Auto) 0.79 L (0.9-3.2) K/mm3 [place] # (Auto) 0.6 (0.1-0.6) K/mm3 Eos # (Auto) 0.1 (0-0.3) K/mm3 Baso # (Auto) 0.0 (0.0-0.1) K/mm3 Abs Immat Gran (auto) 0.04 H (0.00-0.031) K/mm3 Absolute Neuts (auto) 8.3 H (1.3-6.7) K/mm3 Absolute Nucleated RBC 0.000 (0.0-0.012) K/mm3 Nucleated RBC % 0.0 (0.0-0.2) % Sodium 138 (137-145) mmol/L Potassium 3.8 (3.4-5.0) mmol/L Chloride 104 (98-107) mmol/L Carbon Dioxide 28 (22-30) mmol/L Anion Gap 6 (4-12) mmol/L BUN 22 H (7-17) mg/dL Creatinine 1.55 H (0.7-1.0) mg/dL Estim Creat Clear Calc 30 ml/min Estimated GFR 33 L (59 - ) Glucose 89 (65-110) mg/dL Lactic Acid 0.9 (0.7-2.0) mmol/L Calcium 8.5 (8.4-10.2) mg/dL Iron 26 L (37-170) ug/dL TIBC 171 L (261-462) ug/dL % Saturation 15 L (20-50) % Ferritin Pending Total Bilirubin 0.6 (0.2-1.3) mg/dL AST 35 (14-36) U/L ALT 19 (6-35) U/L Alkaline Phosphatase 104 (38-126) U/L Total Protein 6.0 L (6.3-8.2) g/dL Albumin 3.1 L (3.5-5.1) g/dL Influenza A (RT-PCR) Negative (Negative) Influenza B (RT-PCR) Negative (Negative) RSV (RT-PCR) Negative (Negative) SARS-CoV-2 RNA (RT-PCR) Negative (Negative) Imaging Data Radiologist's impression: ITS Impressions Chest X-Ray 05/07/24 10:14 IMPRESSION: Left basilar atelectasis versus pneumonia. Highly suggestive pleural thickening in the left lung base laterally. ECG Data EKG #1: ECG completion date: 05/07/24 EKG Interpretation: normal rate, sinus rhythm, no ST changes and normal QT Critical Care Time Critical Care Time Critical Care Time: Yes Total Critical Care Time: 35 Discharge Plan Discharge Clinical Impression: Acute hypoxemic respiratory failure Pneumonia Qualifiers: Pneumonia type: due to unspecified organism Laterality: left Lung location: lower lobe of lung Qualified Code(s): J18.9 - Pneumonia, unspecified organism Patient Disposition: Still a Patient Condition: Stable
[2024-05-07 09:49] LABS: Basophils Percent Auto 0.2 % (0.2-1.2); Eosinophils Absolute Auto 0.1 K/mm3 (0-0.3); Eosinophils Percent Auto 0.8 % (0-4.4); Hematocrit 25.9 % (37.0-47.0); Hemoglobin 7.8 g/dL (12.0-15.0); Immature Granulocyte Absolute 0.04 K/mm3 (0.00-0.031); Immature Granulocyte Percent A 0.4 % (0-0.5); Lymphocytes Absolute Auto 0.79 K/mm3 (0.9-3.2); Mean Corpuscular HGB Conc 30.1 g/dl (32-36); Mean Corpuscular Hemoglobin 28.7 pg (26-34); Mean Corpuscular Volume 95.2 fl (80-100); Monocytes Absolute Auto 0.6 K/mm3 (0.1-0.6); Monocytes Percent Auto 5.9 % (2.6-8.5); Neutrophils Absolute Auto 8.3 K/mm3 (1.3-6.7); Neutrophils Percent Auto 84.7 % (45.5-73.1); Platelet Count Result 542 k/mm3 (150-375); Red Blood Count 2.72 M/mm3 (4.2-5.4); Red Cell Distribution Width 16.9 % (11.5-14.5); White Blood Count 9.8 K/mm3 (4.5-10.0)
[2024-05-07 10:01] LABS: Lactic Acid Reflex 0.9 mmol/L (0.7-2.0)
[2024-05-07 10:02] LABS: Alanine Aminotransferase 19 U/L (6-35); Albumin Level 3.1 g/dL (3.5-5.1); Alkaline Phosphatase 104 U/L (38-126); Anion Gap 6 mmol/L (4-12); Aspartate Amino Transferase 35 U/L (14-36); Bilirubin,Total 0.6 mg/dL (0.2-1.3); Blood Urea Nitrogen 22 mg/dL (7-17); Calcium 8.5 mg/dL (8.4-10.2); Carbon Dioxide 28 mmol/L (22-30); Chloride 104 mmol/L (98-107); Estimated CRCL calculation 30 ml/min; Estimated Glomerular Filt Rate 33; Glucose 89 mg/dL (65-110); Potassium 3.8 mmol/L (3.4-5.0); Sodium 138 mmol/L (137-145)
[2024-05-07 10:27] LABS: Influenza A QL RT-PCR Negative (Negative); Influenza B QL RT-PCR Negative (Negative); RSV RNA, RT-PCR Negative (Negative); SARS-CoV-2 RNA PCR Negative (Negative)
--- NOTE | 2024-05-07 11:28 | PC.NURSE ---
RN called [facility] @ spoke with Rosa. Rosa reports both pt batteries defective, national sales representative Osbaldo will be here by 1500. RN requested a sooner time. Per Rosa unable to move up time. Paige TRACY informed
--- OUTSIDE RECORDS SUMMARY | 2024-05-07 11:33 | XMS_ITS | Encounter Summary ---
Author Organization [facility] Address [address] [place] [address] Care Team Providers Care Wiper Blender Name Role Phone Bryan Valiente MD Primary Care Provider [phone] Encounter Details Date Type Department Care Team (Late st Contact Info) Description 02/03/2000 Outpatient Historical [facility] Jaguar King MD Social History Tobacco Use Types Packs/Day Years Used Date Smoking Tobacco: Never Assessed Comments Unknown Sex and Gender Information Value Date Recorded Sex Assigned at Not on file Legal Sex Female 3:13 AM MANAGER RISK Gender Identity Not on file Sexual Orientation Not on file documented as of this encounter Plan of Treatment Not on file documented as of this encounter Visit Diagnoses Not on filedocumented in this encounter Care Teams Wiper Blender Relationship Specialty Start Date End Date Bryan Valiente MD [address] [place] [address] PCP - General Family Practice 01/19/19 documented as of this encounter
--- OUTSIDE RECORDS SUMMARY | 2024-05-07 11:33 | XMS_ITS | Encounter Summary ---
Author Organization [facility] Healthcare Address [address] [place] [address] Care Team Providers Care Statistics Teacher Name Role Phone Bryan Valiente MD Primary Care Provider [phone] Encounter Details Date Type Department Care Team (Late st Contact Info) Description 04/05/2024 Telephone [facility] Medical Group Cardiology [address] [facility] [address] [address] Angel Montana MD [address] [facility] [address] [place] [address] Social History Tobacco Use Types Packs/Day Years Used Date Smoking Tobacco: Never Smokeless Tobacco: Never Alcohol Use Standard Drinks/Week Comments No 0 (1 standard drink = 0.6 oz pur e alcohol) Comments Unknown Sex and Gender Information Value Date Recorded Sex Assigned at Not on file Legal Sex Female 12:33 AM FLOOR INSTALLATION MECHANIC Gender Identity Not on file Sexual Orientation Not on file documented as of this encounter Miscellaneous Notes * Telephone Encounter - Sasha Rome RN - 04/05/2024 1:23 PM FLOOR INSTALLATION MECHANIC Spoke with Deandra at [facility]. Reviewed response below from CT. She verbalizes understandingand will call pts POA to call and schedule a sooner appt to be seen in the office. R INSTALLATION MECHANIC * Telephone Encounter - Sasha Rome RN - 04/05/2024 1:09 PM FLOOR INSTALLATION MECHANIC Called back number provided, not a working number. Call placed to [facility]. LM on with nurse to return call. Lm on with pt requesting return call to schedule sooner appt with CT or [facility]. R INSTALLATION MECHANIC * Telephone Encounter - Rosario Zelaya NP - 04/05/2024 12:35 PM FLOOR INSTALLATION MECHANIC It looks like she was hospitalized in January for shock and then had an in- hospital VF arrest. Stopping her metoprolol completely may not be appropriate. She doesn't have another appt until May. We should offer her a sooner appt with me or Dr. Montana and make sure she comes with an accurate med list. R INSTALLATION MECHANIC * Telephone Encounter - Sasha Rome RN - 04/05/2024 12:04 PM FLOOR INSTALLATION MECHANIC Will forward to CT as FYI. R INSTALLATION MECHANIC * Telephone Encounter - Karen Devi - 04/05/2024 11:53 AM CST Deandra called from [facility] to report patient had a PT session today and prior to walking her BP was 86/60. After walking her BP was 98/66. Life vest did not indicate any sort of cardiac eventduring session. On 03/28 patients BP was 99/[address] Valiente (PCP) discontinued Metoprolol due tolow BP on that day. Contact: R INSTALLATION MECHANIC documented in this encounter Plan of Treatment Not on file documented as of this encounter Visit Diagnoses Not on filedocumented in this encounter Additional Health Concerns Infection Onset Date Last Indicated Resolved Time MDR gram neg/ESBL Comment:09/29/15 E.coli -urine 10/02/2015 10/02/2015 documented as of this encounter Care Teams Statistics Teacher Relationship Specialty Start Date End Date Bryan Valiente MD PCP - General 08/06/15 documented as of this encounter
--- OUTSIDE RECORDS SUMMARY | 2024-05-07 11:33 | XMS_ITS | Encounter Summary ---
Author Organization [facility] Healthcare Address [address] [place] [address] Care Team Providers Care Certified Orthotist Name Role Phone Bryan Valiente MD Primary Care Provider [phone] Encounter Details Date Type Department Care Team (Late st Contact Info) Description 07/22/2023 Orders Only [facility] Health Information Management [address] [place] [id number] Scanning, Provider Social History Tobacco Use Types Packs/Day Years Used Date Smoking Tobacco: Never Smokeless Tobacco: Never Alcohol Use Standard Drinks/Week Comments No 0 (1 standard drink = 0.6 oz pur e alcohol) Comments Unknown Sex and Gender Information Value Date Recorded Sex Assigned at Not on file Legal Sex Female 12:33 AM FLIGHT INSPECTOR Gender Identity Not on file Sexual Orientation Not on file documented as of this encounter Plan of Treatment Not on file documented as of this encounter Procedures Procedure Name Priority Date/Time Associated Diagnosis Comments SCAN - RADIOLOGY/IMAGING 07/22/2023 documented in this encounter Results * SCAN - RADIOLOGY/IMAGING (07/22/2023) Anatomical Region Laterality Modality Other us Provider Scanning Final Result documented in this encounter Visit Diagnoses Not on filedocumented in this encounter Additional Health Concerns Infection Onset Date Last Indicated Resolved Time MDR gram neg/ESBL Comment:09/29/15 E.coli -urine 10/02/2015 10/02/2015 documented as of this encounter Care Teams Certified Orthotist Relationship Specialty Start Date End Date Bryan Valiente MD PCP - General 08/06/15 documented as of this encounter
--- OUTSIDE RECORDS SUMMARY | 2024-05-07 11:33 | XMS_ITS | Encounter Summary ---
Author Organization [facility] Address [address] [place] [address] Care Team Providers Care Clothes Designer Name Role Phone Bryan Valiente MD Primary Care Provider [phone] Encounter Details Date Type Department Care Team (Late st Contact Info) Description 03/22/2000 Outpatient Historical [facility] Sanjay Carr MD [address] [facility] [address] [place] [address] Social History Tobacco Use Types Packs/Day Years Used Date Smoking Tobacco: Never Assessed Comments Unknown Sex and Gender Information Value Date Recorded Sex Assigned at Not on file Legal Sex Female 3:13 AM BRIDGE WORKER Gender Identity Not on file Sexual Orientation Not on file documented as of this encounter Plan of Treatment Not on file documented as of this encounter Visit Diagnoses Not on filedocumented in this encounter Care Teams Clothes Designer Relationship Specialty Start Date End Date Bryan Valiente MD [address] [place] [id number] PCP - General Family Practice 01/19/19 documented as of this encounter
--- OUTSIDE RECORDS SUMMARY | 2024-05-07 11:33 | XMS_ITS | Encounter Summary ---
Author Organization [facility] Address [address] [place] [address] Care Team Providers Care Ethnic Origins Teacher Name Role Phone Bryan Valiente MD Primary Care Provider [phone] Encounter Details Date Type Department Care Team (Late st Contact Info) Description 01/25/2000 Outpatient Historical [facility] Sanjay Carr MD [address] [facility] [address] [place] [address] Social History Tobacco Use Types Packs/Day Years Used Date Smoking Tobacco: Never Assessed Comments Unknown Sex and Gender Information Value Date Recorded Sex Assigned at Not on file Legal Sex Female 3:13 AM AUTISM SPECIALIST Gender Identity Not on file Sexual Orientation Not on file documented as of this encounter Plan of Treatment Not on file documented as of this encounter Visit Diagnoses Not on filedocumented in this encounter Care Teams Ethnic Origins Teacher Relationship Specialty Start Date End Date Bryan Valiente MD [address] [place] [address] PCP - General Family Practice 01/19/19 documented as of this encounter
--- OUTSIDE RECORDS SUMMARY | 2024-05-07 11:33 | XMS_ITS | Patient Health Record ---
Author Organization [facility] Address [address] [facility] [place] [facility] [address] [place], [place] [id number] Care Team Providers Care Pipe Supervisor Name Role Phone Tereso Noe [phone] ALLERGIES Allergen (clinical drug ingredient) Drug/Non Drug Allergy documented on EMR Reaction Allergy Type Onset Date Status codeine codeine stomach upset Drug Allergy Act marc ampicillin ampicillin stomach upset Drug Allergy A ctive REASON FOR REFERRAL No Information MEDICATIONS Medication SIG (Take, Route, Frequency, Duration) Notes Start Date End Date Status warfarin 5 mg 1 tab(s) orally once a day Active indapamide 1.25 mg 1 tab(s) orally once a day (in the morning) 02/29/2024 02/29/2024 Active Levoxyl 125 mcg (0.125 mg) 1 tab(s) orally once a day 02/29/2024 02/29/2024 Active Lipitor 20 mg 1 tab(s) orally once a day (at bedtime) 02/29/2024 02/29/2024 Active Sulfazine 500 mg 1 tab(s) orally 3 ti mes a day 02/29/2024 02/29/2024 Active traMADol 50 mg 1-2 tab orally tid 02/29/202402/28 Active Enablex 7.5 mg 1 tab(s) orally once a day 02/29/2024 02/29/2024 Active PREDNISONE 10mg 1 tab PO DAILY 02/29/2024 02/28/99 Active SOCIAL HISTORY Sex Assigned At : Social History Observation Description Sex Assigned At Unknown PROBLEMS Problem Type ICD Code Onset Dates Problem Status W/U Status Risk SNOMED Code Notes Problem Rheumatoid Arthritis (714.0) Active confirmed Rheumatoid arthritis (11151282) Problem MONITOR MED (V58.69) Active confirmed Long-term drug therapy (300667306) Problem Pemphigoid (694.5) Active confirmed Pemphigoid (45458251) PLAN OF TREATMENT Pending Test Test Name Order Date CBC With Differential/Platelet 0 CBC With Differential/Platelet 9 Comp. Metabolic Panel (14) 04/30/2009 Comp. Metabolic Panel (14) 01/01/2009 Joint Injection - shoulder, right 2008 Insurance Providers Payer Name Payer Address Payer Phone Subscriber Number Group Number Insured Name Patient Relationship to Insured Coverage Start Date Coverage End Date [employer] OPEN ACCESS [address] [place] [address] [id number] Hoa EASLEY Self - patient is the insured 8 MEDICAL (GENERAL) HISTORY Medical History History ICD Code hypertension bruises easily sores that won't heal hayfever sinus problems diabetes thyroid disease Blood clots high blood pressure difficulty breathing, intermittent pneumonia asthma bronchitis emphysema gas hemorrhoids indigestion stomach pain/cramps ulcers weight loss measeles chicken pox Surgical History Surgery Date(Month/Year) right ovary removal 1988 gallbladder surgery 1995 Hospitalization History Reason Date(Month/Year) 2 blood clots, one in each lung 2010 Blood clot in leg 2011
--- OUTSIDE RECORDS SUMMARY | 2024-05-07 11:33 | XMS_ITS | Encounter Summary ---
Author Organization [facility] Address [address] [place] [address] Care Team Providers Care Driver Trainer Name Role Phone Bryan Valiente MD Primary Care Provider [phone] Encounter Details Date Type Department Care Team (Late st Contact Info) Description 02/03/2000 Outpatient Historical [facility] Sanjay Carr MD [address] [facility] [address] [place] [address] Social History Tobacco Use Types Packs/Day Years Used Date Smoking Tobacco: Never Assessed Comments Unknown Sex and Gender Information Value Date Recorded Sex Assigned at Not on file Legal Sex Female 3:13 AM HYDRAULIC SPECIALIST Gender Identity Not on file Sexual Orientation Not on file documented as of this encounter Plan of Treatment Not on file documented as of this encounter Visit Diagnoses Not on filedocumented in this encounter Care Teams Driver Trainer Relationship Specialty Start Date End Date Bryan Valiente MD [address] [place] [phone] PCP - General Family Practice 01/19/19 documented as of this encounter
--- OUTSIDE RECORDS SUMMARY | 2024-05-07 11:33 | XMS_ITS | Referral Summary ---
Author Organization [facility] [place] [place] [address] [place] [address] Address [address] [facility] [address] [place] [address] Care Team Providers Care Field Technician Name Role Phone Bryan Valiente MD Primary Care Provider [phone] Encounters Date Type Department Care Team Description 04/10/2024 8:00 AM COMMUNITY DEVELOPMENT AIDE Office Visit [facility] Medical [facility] Cardiology [address] [facility] [address] [place] [address] Rosario Zelaya NP Dilated cardiomyopathy (HCC) (Primary Dx); Nonischemic cardiomyopathy (HCC); History of sudden cardiac arrest successfully resuscitated; History of atrial flutter; Chronic anticoagulation 04/05/2024 Telephone [facility] Cardiology [address] [facility] [address] [place] [address] Angel Montana MD 02/20/2024 Orders Only [facility] Cardiology [address] [place] [address] [address] [place] [address] Danuta Caceres MD from Last 3 Months Allergies Active Allergy Reactions Criticality Noted Date Comments Adhesive Tape-Silicones Rash Medium Ampicillin Furosemide Unknown 01/15/2021 Iodinated Contrast Media Shortness of breath High Iodine Anaphylaxis High 09/09/2016 Lisinopril Angioedema High 01/15/2021 Facial swelling and shortness of breath Methotrexate Unknown 01/15/2021 Penicillins Nausea & Vomiting Low Reaction: VOMITING Prochlorperazine Other (See comments) Low Reaction: SEE ALLERGY COMMEN, Tetracycline Nausea & Vomiting Low Medications atorvastatin (LIPITOR) 20 mg tablet Take 1 tablet (20 mg total) by mouth daily Active levothyroxine (SYNTHROID, LEVOTHROID) 112 mcg tablet Take 1 tablet (112 mcg total) by mouth daily Active potassium chloride ER (KLOR-CON) 10 mEq CR tablet Take 2 tablet/capsule (20 mEq total) by mouth daily Active donepeziL (ARICEPT) 10 mg tablet 1 Active empagliflozin (JARDIANCE) 25 mg tablet 1 tablet (25 mg total) 4 Active furosemide (LASIX) 20 mg tablet Take 1 tablet (20 mg total) by mouth daily 4 Active sertraline (ZOLOFT) 100 mg tablet 4 Active anastrozole (ARIMIDEX) 1 mg tablet Take 1 tablet (1 mg total) by mouth daily 4 Active memantine (NAMENDA) 10 mg tablet Take 1 tablet (10 mg total) by mouth 2 (two) times a day 4 Active spironolactone (ALDACTONE) 25 mg tablet Take 0.5 tablets (12.5 mg total) by mouth daily 4 Active Eliquis 5 mg tablet Take 1 tablet (5 mg total) by mouth 2 (two) times a day 4 Active albuterol HFA (PROVENTIL HFA,VENTOLIN HFA,PROAIR HFA) 90 mcg/actuation inhaler Inhale 2 puffs every 6 (six) hours as needed for wheezing Active ferrous sulfate 325 mg (65 mg of elemental iron) tabletIndicati ons:Iron Deficiency Anemia Take 1 tablet (65 mg of elemental iron total) by mouth 3 (three) times a day with meals Active CYANOCOBALAMIN , VITAMIN B-12, ORAL Take by mouth Activ e amiodarone (PACERONE) 200 mg tablet Take 1 tablet (200 mg total) by mouth daily Active aspirin 81 mg chewable tablet Take 1 tablet (81 mg total) by mouth daily Active cholecalcifero l (VITAMIN D-3) 2000 unit tablet Active menthol-zinc oxide 0.44-20.6 % ointment Apply topically CalProtect Ointment Active polyethylene glycol (MIRALAX) 17 gram packetIndicati ons:constipati on Take 1 packet (17 g total) by mouth daily Active ALPRAZolam (XANAX) 0.5 mg tablet Take 1 tablet (0.5 mg total) by mouth 3 (three) times a day as needed for anxiety Active ondansetron (ZOFRAN) 4 mg tablet Take 1 tablet (4 mg total) by mouth every 8 (eight) hours as needed for nausea or vomiting Active nystatin powder Apply topically 4 (four) times a day Active nitroglycerin (NITROSTAT) 0.[address] 1 tablet (0.4 mg total) under the tongue every 5 (five) minutes as needed for chest pain 04/10/19 Discontinu ed(Therapy completed) metFORMIN (FORTAMET) 1,000 mg 24 hr tablet Take 1 tablet (1,000 mg total) by mouth daily with breakfast ON HOLD 04/10/19 Discontinu ed(Alterna te therapy) indapamide (LOZOL) 1.25 mg tablet Take 1 tablet (1.25 mg total) by mouth every morning 04/10/19 Discontinu ed(Alterna te therapy) metOLazone (ZAROXOLYN) 5 mg tablet Take 1 tablet (5 mg total) by mouth daily 04/10/19 Discontinu ed(Therapy completed) cholecalcifero l (REPLESTA) 50,000 unit wafer Take 1 Wafer (50,000 Units total) by mouth once a week 04/10/19 Discontinu ed(Therapy completed) traMADol (ULTRAM) 50 mg tablet Take 1 tablet (50 mg total) by mouth every 6 (six) hours as needed for pain 04/10/19 Discontinu ed(Therapy completed) insulin lispro (HumaLOG) 100 unit/mL injection Inject under the skin 3 (three) times a day before meals. 04/10/19 Discontinu ed(Therapy completed) mometasone (ASMANEX) 220 mcg (14 doses) inhaler Inhale 2 puffs daily Rinse mouth with water after use to reduce aftertaste and incidence of candidiasis. Do not swallow. 04/10/19 Discontinu ed(Therapy completed) metoprolol XL (TOPROL-XL) 100 mg 24 hr tablet Take 1 tablet (100 mg total) by mouth daily 04/10/19 Discontinu ed(Therapy completed) sodium chloride 1 gram tablet Take 1 tablet (1 g total) by mouth 3 (three) times a day 04/10/19 Discontinu ed(Therapy completed) ascorbic acid (ascorbic acid with ziyad hips) 500 mg tablet,chewabl e 04/10/19 Discontinu ed(Therapy completed) Active Problems Problem Noted Date Diagnosed Date PVCs (premature ventricular contractions) 2018 Morbid obesity with BMI of 40.0-44.9, adult 09/28 Precordial pain 09/09/2016 Rash 06/14/2012 Bullous pemphigoid 05/12/2012 Social History Tobacco Use Types Packs/Day Years Used Date Smoking Tobacco: Never Smokeless Tobacco: Never Tobacco Cessation:Counseling Given: Not Answered Alcohol Use Standard Drinks/Week Comments No 0 (1 standard drink = 0.6 oz pur e alcohol) Comments Unknown Sex and Gender Information Value Date Recorded Sex Assigned at Not on file Legal Sex Female 12:33 AM COMMUNITY DEVELOPMENT AIDE Gender Identity Not on file Sexual Orientation Not on file Last Filed Vital Signs Vital Sign Reading Time Taken Comments Blood Pressure 98/52 04/10/2024 8:14 AM COMMUNITY DEVELOPMENT AIDE Pulse 75 04/10/2024 8:14 AM COMMUNITY DEVELOPMENT AIDE Temperature - - Respiratory Rate 14 09/09/2016 10:56 AM CDT Oxygen Saturation 99% 04/10/2024 8:14 AM COMMUNITY DEVELOPMENT AIDE Inhaled Oxygen Concentration - - Weight 84.6 kg (186 lb 8 oz) 04/10/2024 8:14 AM COMMUNITY DEVELOPMENT AIDE Height 167.6 cm (5' 6 ) 04/10/2024 8:14 AM COMMUNITY DEVELOPMENT AIDE Body Mass Index 30.1 04/10/2024 8:14 AM COMMUNITY DEVELOPMENT AIDE Plan of Treatment Not on file Procedures Procedure Name Priority Date/Time Associated Diagnosis Comments CARDIOLOGY DOCUMENT SCAN Routine 02/07/2024 11:15 AM COMMUNITY DEVELOPMENT AIDE EGFR Routine 01/24/2024 12:16 PM COMMUNITY DEVELOPMENT AIDE POCT LIPID PANEL Routine 01/15/2021 2:05 PM COMMUNITY DEVELOPMENT AIDE Lipid screening from Last 3 Months or Most Recently Relevant to Health Maintenance Results * Cardiology Document Scan (02/07/2024 11:15 AM COMMUNITY DEVELOPMENT AIDE) Anatomical Region Laterality Modality Other us Danuta Caceres MD [facility] CARDIAC SERVICES PRO CEDURES Final Result * eGFR (01/24/2024 12:16 PM COMMUNITY DEVELOPMENT AIDE) eGFR 90 >=60 mL/min/1. 73 m2 Comment: Interpretive Data Reference Interval Normal >/= 90 mL/min/1.73m2 Mildly decreased* 60 - 89 mL/min/1.73m2 Mildly to moderately decreased 45 - 59 mL/min/1.73m2 Moderately to severely decreased 30 - 44 mL/min/1.73m2 Severely decreased 15 - 29 mL/min/1.73m2 Kidney Failure < 15 mL/min/1.73m2 *Relative to young adult level Estimated glomerular filtration rate is determined by the 2020 CKD-EPI equation recommended by the National Kidney Foundation (A Unifying Approach to GFR Estimation: Recommendations of the NKF-ASK Task Force on Reassessing the Inclusion of Race in Diagnosing Kidney Disease, JASN 2020). The CKD-EPI equation should not be used for patients with unstable renal function and has not been validated in children and those over 70. Current interpretive data was last reviewed 2020. Blood 01/24/2024 12:1 6 PM COMMUNITY DEVELOPMENT AIDE 01/25/2024 8:16 AM COMMUNITY DEVELOPMENT AIDE us Notinfile Unknown LAB BLOOD ORDERABLES Final Res ult [facility] [address] [place] [address] * (ABNORMAL) POCT lipid panel (01/15/2021 2:05 PM COMMUNITY DEVELOPMENT AIDE) Cholesterol, POC 21 mg/dL HDL, POC 72 mg/dL Triglycerides, POC 296 mg/dL LDL Cholesterol POC 80 mg/dL Chol/HDL Ratio, POC 2.9 Non-HDL Cholesterol, POC 139 mg/dL Cholesterol Total, POC 211 mg/dL Capillary blood 01/15/2021 2 :05 PM COMMUNITY DEVELOPMENT AIDE us Angel Montana MD POINT OF CARE TEST ORDER MILLA Final Result from Last 3 Months or Most Recently Relevant to Health Maintenance Additional Health Concerns Infection Onset Date Last Indicated MDR gram neg/ESBL Comment:09/29/15 E.coli -urine 10/02/2015 10/02/2015 Insurance [facility] HMO REF [facility] MEDICARE Care Teams Field Technician Relationship Specialty Start Date End Date Bryan Valiente MD PCP - General 08/06/15
--- OUTSIDE RECORDS SUMMARY | 2024-05-07 11:33 | XMS_ITS | Encounter Summary ---
Author Organization [facility] Healthcare Address [address] [place] [address] Care Team Providers Care Salt Machine Operator Name Role Phone Bryan Valiente MD Primary Care Provider [phone] Encounter Details Date Type Department Care Team (Late st Contact Info) Description 07/16/2023 Orders Only [facility] [place] Health Information Management [address] [place] [id number] Vivien Greer DO [address] [facility] [address] [place] [id number] Social History Tobacco Use Types Packs/Day Years Used Date Smoking Tobacco: Never Smokeless Tobacco: Never Alcohol Use Standard Drinks/Week Comments No 0 (1 standard drink = 0.6 oz pur e alcohol) Comments Unknown Sex and Gender Information Value Date Recorded Sex Assigned at Not on file Legal Sex 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 Gender Identity Not on file Sexual Orientation Not on file documented as of this encounter Plan of Treatment Not on file documented as of this encounter Procedures Procedure Name Priority Date/Time Associated Diagnosis Comments SCAN - RADIOLOGY/IMAGING 07/15/2023 documented in this encounter Results * SCAN - RADIOLOGY/IMAGING (07/15/2023) Anatomical Region Laterality Modality Other us Vivien Greer DO Edited Result - Final documented in this encounter Visit Diagnoses Not on filedocumented in this encounter Additional Health Concerns Infection Onset Date Last Indicated Resolved Time MDR gram neg/ESBL Comment:09/29/15 E.coli -urine 10/02/2015 10/02/2015 documented as of this encounter Care Teams Salt Machine Operator Relationship Specialty Start Date End Date Bryan Valiente MD PCP - General 08/06/15 documented as of this encounter
--- OUTSIDE RECORDS SUMMARY | 2024-05-07 11:33 | XMS_ITS | Clinical Summary ---
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 Gender Identity Not on file Sexual Orientation Not on file Plan of Treatment Health Maintenance Due Date Last Done Comments DEXA Bone Density 1950 Hepatitis C Virus (HCV) Screening 1950 TdaP Immunization 1950 Colonoscopy 01/15/1993 Colorectal Cancer Screening 01/15/1993 Cologuard 01/15/1998 Immunochemical Fecal Occult Blood 01/15/1998 Pneumococcal Immunization (50+ years) (1 of 1 - PCV) 01/15/1998 Zoster Immunization (1 of 2) 01/15/1998 Respiratory Syncytial Virus (RSV) Immunization (Adult) (1 - 1-dose 75+ series) 01/15/2023 Influenza Immunization (#1) 10/30/202311/29, 11/13/2017, 11/14/2016, Additional history exists SARS-COV-2 Immunization ( season) 2023 01/09/2021, 04/21/2020, 03/31/2020 Hepatitis B Immunization Aged Out No longer eligible based on patient's age to complete this topic Meningococcal Immunization (ACWY) Aged Out No longer eligible based on patient's age to complete this topic Rotavirus Immunization Aged Out No lo nger eligible based on patient's age to complete this topic
--- OUTSIDE RECORDS SUMMARY | 2024-05-07 11:33 | XMS_ITS | Encounter Summary ---
Author Organization [facility] Address 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 [id number] PCP - General Family Practice 01/19/19 documented as of this encounter
--- OUTSIDE RECORDS SUMMARY | 2024-05-07 11:33 | XMS_ITS | Clinical Summary ---
Author Organization [facility] Marie Stoll Address [address] [place] [address] Care Team Providers Care Metallic Yarn Slitting Machine Operator Name Role Phone Bryan Valiente MD Primary Care Provider [phone] Allergies Active Allergy Reactions Criticality Noted Date Comments Adhesive Tape-Silicones Rash Medium 02/01/2019 Iodinated Contrast Media Shortness of Breath/Wheezing High 02/01/2019 Iodine Anaphylaxis High 09/09/2016 Lisinopril Angioedema High 01/15/2021 Facial swelling and shortness of breath Penicillins Nausea and Vomiting Low 02/01/2019 Reaction: VOMITING Prochlorperazine Shortness of Breath/Wheezing High 02/01/2019 Tetracycline Nausea and Vomiting Low 02/01/2019 Medications traMADol (ULTRAM) 50 mg tablet Take 50 mg by mouth. Active rivaroxaban (XARELTO) 20 mg Tablet 20 mg. Active nitroglycerin (NITROSTAT) 0.4 mg Tablet, Sublingual Place 0.4 mg under tongue. Active mometasone (ASMANEX TWISTHALER) 220 mcg/ actuation (14) Aerosol Powdr Breath Activated Take 2 Puffs by inhalation. Active metFORMIN (FORTAMET) 1,000 mg Extended Release 24 hour tablet Take 1,000 mg by mouth. Active levothyroxine 112 mcg tablet Take 112 mcg by mouth. Active insulin lispro (HumaLOG) 100 unit/mL vial Inject by subcutaneous injection. Active indapamide (LOZOL) 1.25 mg tablet Take 1.25 mg by mouth. Active Cholecalcifero l, Vitamin D3, 50,000 unit Wafer Take 50,000 Units by mouth. Active benzonatate (TESSALON) 200 mg capsule Take 200 mg by mouth. Active atorvastatin (LIPITOR) 10 mg tablet Take 10 mg by mouth. Active lidocaine-pril ocaine (EMLA) 2.5-2.5 % CreamIndicatio ns:Malignant neoplasm of upper-outer quadrant of left breast in female, estrogen receptor positive (CMS/HCC) Apply to affected area see administration instructions. APPLY TO PORT SITE 30 MINUTES PRIOR TO ACCESS. 30 Gram 1 9 Active dexAMETHasone (DECADRON) 4 mg tabletIndicati ons:Malignant neoplasm of upper-outer quadrant of left breast in female, estrogen receptor positive (CMS/HCC) Take 1 Tablet (4 mg) by mouth 2 times daily. TAKE THE DAY BEFORE CHEMOTHERAPY, THE DAY OF, AND THE DAY AFTER CHEMOTHERAPY 6 Tablet 4 9 Active predniSONE (DELTASONE) 50 mg tabletIndicati ons:Malignant neoplasm of upper-outer quadrant of left breast in female, estrogen receptor positive (CMS/HCC),Cont rast media allergy Take 1 Tablet (50 mg) by mouth daily. Take 13hrs, 7hrs, & 1hr before scan. Also, take Benadryl 50mg PO 1 hr before scan. 3 Tablet 9 Active memantine (NAMENDA) 5 mg Tablet TAKE ONE TABLET TWICE DAILY 9 Active CONTOUR NEXT TEST STRIPS Strip TEST BLOOD SUGAR THREE TIMES DAILY 9 Active ondansetron (ZOFRAN) 4 mg TabletIndicati ons:Malignant neoplasm of upper-outer quadrant of left breast in female, estrogen receptor positive (CMS/HCC) Take 1 Tablet (4 mg) by mouth every 8 hours as needed for Nausea/Emesis. 90 Tablet 3 0 Active potassium chloride (KLOR-CON) 20 mEq Extended Release tabletIndicati ons:Malignant neoplasm of upper-outer quadrant of left breast in female, estrogen receptor positive (CMS/HCC),Hypo kalemia Take 1 Tablet (20 mEq) by mouth daily. Take 20 mEq twice a day for 7 days beginning on 03/12/19. Then take 20 mEq once a day. 37 Tablet 1 0 Active diphenoxylate- atropine 2.5-0.025 mg tablet TK ONE T PO TID PRF DIARRHEA 30 Tablet 0 Active cephALEXin (KEFLEX) 500 mg capsule Take 1 Capsule (500 mg) by mouth 4 times daily. 40 Capsule 0 Active donepeziL (ARICEPT) 10 mg tablet 1 Active anastrozole (ARIMIDEX) 1 mg tabletIndicati ons:Malignant neoplasm of upper-outer quadrant of left breast in female, estrogen receptor positive (CMS/HCC) TAKE 1 TABLET (1 MG) BY MOUTH DAILY. 90 Tablet 4 3 Active Active Problems Problem Noted Date Diagnosed Date Chemotherapy induced neutropenia 04/03/2019 Malignant neoplasm of upper- outer quadrant of left breast in female, estrogen receptor positive 02/01/2019 Encounters Date Type Department Care Team Description 04/18/2024 External Device Data [facility] ABSTRACTION Provider, Abstract 03/27/2024 External Device Data [facility] ABSTRACTION Provider, Abstract from Last 3 Months Family History Medical History Relation Name Comments Heart Disease Father Relation Name Status Comments Brother Father Mother Sister Social History Tobacco Use Types Packs/Day Years Used Date Smoking Tobacco: Never Smokeless Tobacco: Never Tobacco Cessation:Counseling Given: Not Answered Alcohol Use Standard Drinks/Week Comments Never 0 (1 standard drink = 0.6 oz pur e alcohol) Comments No Sex and Gender Information Value Date Recorded Sex Assigned at Not on file Legal Sex Female 3:13 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 Gender Identity Not on file Sexual Orientation Not on file Last Filed Vital Signs Vital Sign Reading Time Taken Comments Blood Pressure 132/68 09/15/2023 9:36 AM CDT Pulse 77 09/15/2023 9:36 AM CDT Temperature 36.3 C (97.3 F) 09/15/2023 9:36 AM CDT Respiratory Rate 20 09/15/2023 9:36 AM CDT Oxygen Saturation 96% 09/15/2023 9:36 AM CDT Inhaled Oxygen Concentration - - Weight 102.5 kg (226 lb) 09/15/2023 9:36 AM CDT Height 167.6 cm (5' 6 ) 05/14/2021 3:04 PM CDT Body Mass Index 36.48 05/14/2021 3:04 PM CDT Plan of Treatment Health Maintenance Due Date Last Done Comments DTAP/TDAP/TD VACCINES (1 - Tdap) 01/15/1967 PNEUMOCOCCAL VACCINE 50+ YEARS (1 of 2 - PCV) 01/15/19 67 ZOSTER VACCINE (1 of 2) 01/15/1967 OSTEOPOROSIS SCREENING 01/15/2013 COVID-19 Vaccine (2 - Pfizer risk series) 01/30/2021 01/09/2021 RSV VACCINE (60+ or ) (1 - 1-dose 75+ series) 01/15/2023 INFLUENZA VACCINE (#1) 2023 Medicare Advantage ([place]) Prev entative Visit/Annual Wellness Visit 02/29/2024 Insurance AETNA PPO [facility] AETNA [facility] Care Teams Metallic Yarn Slitting Machine Operator Relationship Specialty Start Date End Date Bryan Valiente MD [address] [place] [address] PCP - General Family Practice 01/19/19
--- OUTSIDE RECORDS SUMMARY | 2024-05-07 11:33 | XMS_ITS | Clinical Summary ---
Author Organization [facility] [address] Address [address] [place] [address] Care Team Providers Care Ticket Printer Name Role Phone Bryan Valiente MD Primary Care Provider [phone] Allergies Active Allergy Reactions Criticality Noted Date [...] minutes as needed for chest pain 04/10/19 25 Discontinu ed(Therapy completed) metFORMIN (FORTAMET) 1,000 mg [...] tablet (100 mg total) by mouth daily 4 04/10/19 Discontinu ed(Therapy completed) sodium chloride 1 [...] pain 09/09/2016 Rash 06/14/2012 Bullous pemphigoid 05/12/2012 Encounters Date Type Department Care Team Description 04/10/2024 8:00 AM SCALEMAN Office Visit [facility] [address] [place] [id number] Rosario Zelaya NP Dilated cardiomyopathy (HCC) (Primary Dx); Nonischemic cardiomyopathy (HCC); History of sudden cardiac arrest successfully resuscitated; History of atrial flutter; Chronic anticoagulation 04/05/2024 Telephone [facility] [address] [place] [address] Angel Montana MD 02/20/2024 Orders Only [facility] [address] [place] [address] Danuta Caceres MD from Last 3 Months Family History Medical History Relation Name Comments No Known Problems Brother Heart attack Father No Known Problems Mother Relation Name Status Comments Brother Father Mother Social History Tobacco Use Types Packs/Day Years Used Date Smoking Tobacco: Never Smokeless Tobacco: Never Tobacco Cessation:Counseling Given: Not Answered Alcohol Use Standard Drinks/Week Comments No 0 (1 standard drink = 0.6 oz pur e alcohol) Comments Unknown Sex and Gender Information Value Date Recorded Sex Assigned at Not on file Legal Sex Female 12:33 AM SCALEMAN Gender Identity Not on file Sexual Orientation Not on file Obstetrics History Last Filed Vital Signs Vital Sign Reading Time Taken Comments Blood Pressure 98/52 04/10/2024 8:14 AM SCALEMAN Pulse 75 04/10/2024 8:14 AM SCALEMAN Temperature - - Respiratory Rate 14 09/09/2016 10:56 AM CDT Oxygen Saturation 99% 04/10/2024 8:14 AM SCALEMAN Inhaled Oxygen Concentration - - Weight 84.6 kg (186 lb 8 oz) 04/10/2024 8:14 AM SCALEMAN Height 167.6 cm (5' 6 ) 04/10/2024 8:14 AM SCALEMAN Body Mass Index 30.1 04/10/2024 8:14 AM SCALEMAN Plan of Treatment Health Maintenance Due Date Last Done Comments Albumin Creatinine Ratio, Urine 1948 Depression Screening 1948 Fall Risk Assessment 1948 Hemoglobin A1C 1948 Hepatitis C Screening 1950 Osteoporosis Screening-Bone Density Scan 1948 Dilated Eye Exam 1948 Foot Exam 1948 DTaP/Tdap/Td Vaccine (1 - Tdap) 01/15/1959 Hepatitis B Screening 01/15/1966 Well Visit 65+ 01/15/2013 Lipid Panel 01/15/2022 01/15/2021, 07/0 10/2018, 06/24/2016 Zoster Vaccine (2 of 2) 02/10/2023 12/16/2022 Covid-19 Vaccine (5 - 2023-2 5 season) 2023 01/26/2022, 01/09/2021, 04/21/2020, Additional history exists Influenza Vaccine (#1) 2023 9, 11/13/2017, 11/14/2016, Additional history exists eGFR 01/23/2025 01/24/2024 Pneumococcal vaccine 65+ Completed 08/16/2023 Procedures Procedure Name Priority Date/Time Associated Diagnosis Comments CARDIOLOGY DOCUMENT SCAN Routine 02/07/2024 11:15 AM SCALEMAN EGFR Routine 01/24/2024 12:16 PM SCALEMAN POCT LIPID PANEL Routine 01/15/2021 2:05 PM SCALEMAN Lipid screening from Last 3 Months or Most Recently Relevant to Health Maintenance Results * Cardiology Document Scan (02/07/2024 11:15 AM SCALEMAN) Anatomical Region Laterality Modality Other [facility] Louis Caceres MD CV CARDIAC SERVICES PRO CEDURES Final Result * eGFR (01/24/2024 12:16 PM SCALEMAN) eGFR 90 >=60 mL/min/1. 73 m2 Comment: [...] reviewed 2020. Blood 01/24/2024 12:1 6 PM SCALEMAN 01/25/2024 8:16 AM SCALEMAN us Notinfile Unknown LAB BLOOD ORDERABLES Final Res ult [facility] [address] Department [place] [address] * (ABNORMAL) POCT lipid panel (01/15/2021 2:05 PM SCALEMAN) Cholesterol, POC 21 mg/dL HDL, POC 72 mg/dL Triglycerides, POC 296 mg/dL LDL Cholesterol POC 80 mg/dL Chol/HDL Ratio, POC 2.9 Non-HDL Cholesterol, POC 139 mg/dL Cholesterol Total, POC 211 mg/dL Capillary blood 01/15/2021 2 :05 PM SCALEMAN us Angel Montana MD POINT OF CARE TEST ORDER MILLA Final Result from Last 3 Months or Most Recently Relevant to Health Maintenance Additional Health Concerns Infection Onset Date Last Indicated MDR gram neg/ESBL Comment:09/29/15 E.coli -urine 10/02/2015 10/02/2015 Insurance MDCR HMO REF [facility] Care Teams Ticket Printer Relationship Specialty Start Date End Date Bryan Valiente MD PCP - General 08/06/15
[2024-05-07] MEDS: AZITHROMYCIN 500 MG/NS 250 ML 500 MG/250 ML BAG 250 MG IVPB (11:46)
--- NOTE | 2024-05-07 12:09 | PC.NURSE ---
This patient, Hoa Balbuena, was admitted to IMU Room 210-01. Patient/family oriented to hospital policies and general routines including ID bracelet, bed and alarms, visiting hours, pain management, procedures, bathroom and other care routines, personal items, smoking policy, room service/diet, and visiting hours. Information on how to activate the Rapid Response Team has been discussed. Patient/Family are encouraged to report perceived risks to care and to ask questions if they do not understand what they are told or what they should do.
[2024-05-07 13:22] LABS: Glucose Point of Care 88 mg/dl (65-105)
--- NOTE | 2024-05-07 15:30 | PM.IMHP ---
H&P: HPI History of Present Illness Date/Time: 05/07/24 15:30 Chief Complaint: Shortness of breath and coughing. Narrative: 74 y/o F presents here with hypotension with PMH of hyponatremia, CKD stage 3, anemia of chronic disease, asthma-COPD overlap, left breast cancer s/p chemotherapy and mastectomy in , type 2 diabetes, DVT, HLD, HTN, hypothyroidism, KURT on CPAP, PE, paroxysmal AFib, peptic ulcer disease, and rheumatoid arthritis who presented to the ER on account of shortness of breath and cough. Patient was lethargic and provide updated scans history, that she has been coughing the past 2 days with worsening shortness of breath. No oxygen at home. Patient is on LifeVest however did not noted that the batteries were . Denies any chest no vomiting, no abdominal pain no diarrhea no dysuria no focal symptoms. ER evaluation notable for vital signs blood pressure 100/55, saturating 97% on 2 L oxygen. Labs notable for hemoglobin 7.8, platelets 542, creatinine 1.55. Chest x-ray showed possible with changes which suggestive pleural thickening the left lung base laterally. Patient was started on antibiotics prior to admission. Review of Systems Review of Systems: All other Systems reviewed and negative except as noted history above. [facility] Past Medical History Medical History (Updated 05/07/24 @ 13:01 by Paige Madrid PA-C) Acute anxiety Ataxia Low vitamin B12 level Dementia on donepezil and memantine Urine incontinence Depression with anxiety Degenerative arthritis of knee, bilateral Cyst Obesity 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 Bullous pemphigoid On daily prednisone. 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 Neoadjuvant chemotherapy with TCH and Perjeta. status left breast mastectomy with sentinel lymph node biopsy on 07/31/2019. Obstructive sleep apnea on CPAP Pulmonary embolism Surgical History Surgical History H/O dilation and curettage H/O oophorectomy one ovary-unsure side History of cardiac catheterization History of total mastectomy of left breast (~07/2019) History of cystoscopy With lithotripsy and stent placement. History of cholecystectomy History of bilateral cataract extraction History of tubal ligation History of appendectomy History of hysterectomy Status post cataract extraction of both eyes with insertion of intraocular lens Hx of cholecystectomy History of partial mastectomy of left breast Approximately 2018 Family History Family History Father Acute myocardial infarction Father Cerebrovascular accident Acute myocardial infarction Tobacco abuse Mother Cerebrovascular accident Sibling No problems noted. Social History Social History Social History: The patient is never and has no children. 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 She is currently in assisted living at [facility], and has been there for a couple of months since she started chemotherapy. She also owns a home in [place], where she hopes to return. Her [id number], Sofia, is her surrogate decision maker. She wishes to be a full code. 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 Gender identity (if verbalized by the patient): Female Sexual Orientation (if Verbalized by the Patient): Straight or Heterosexual Spiritual care concerns: No Agree to blood products: Yes Meds Home Medications and Allergies Home Medications ?Medication ?Instructions ?Recorded ?Confirmed ?Type blood sugar diagnostic (Contour #100 ea 05/03/19 05/07/24 Rx Next Test Strips) blood sugar diagnostic (Blood #100 ea 12/25/19 05/07/24 Rx Glucose Test strips) lancets (Lancets, Super Thin) #100 ea 12/25/19 05/07/24 Rx hydrocolloid dressing 4 X 4 #20 ea 12/15/21 05/07/24 Rx (DuoDERM CGF Adhesive Border Dressing) silicone,dressing-foam bandage 3 #10 ea 02/18/23 05/07/24 Rx X 3 albuterol sulfate 90 mcg/actuation 1 inh inhalation Q4H PRN shortness 05/10/23 05/07/24 Rx aerosol inhaler (ProAir HFA) of breath or wheezing #6.7 grams blood-glucose meter (Accu-Chek #1 ea 08/03/23 05/07/24 Rx Guide Glucose Meter) foam bandage 9.2 X 9.2 (Mepilex #5 ea 09/06/23 05/07/24 Rx Border Sacrum) potassium chloride 20 mEq 20 meq PO DAILY #30 tabs 12/16/23 05/07/24 Rx tablet,extended release apixaban 5 mg tablet (Eliquis) 5 mg PO Q12HR #60 tabs 01/03/24 05/07/24 Rx furosemide 20 mg tablet 20 mg PO BID #60 tabs 01/15/24 05/07/24 Rx cyanocobalamin (vitamin B-12) 1,000 mcg PO DAILY 02/05/24 05/07/24 History 1,000 mcg tablet (Vitamin B-12) ferrous sulfate 325 mg (65 mg 325 mg PO BID 02/05/24 05/07/24 History iron) tablet (FeroSul) levothyroxine 112 mcg tablet 112 mcg PO DAILY 02/05/24 05/07/24 History memantine 10 mg tablet 10 mg PO BID 02/05/24 05/07/24 History sertraline 100 mg tablet 200 mg PO DAILY 02/05/24 05/07/24 History spironolactone 25 mg tablet 12.5 mg PO DAILY 02/05/24 05/07/24 History amiodarone 200 mg tablet (Pacerone) 200 mg PO DAILY@0800 #30 tabs 02/16/24 05/07/24 Rx aspirin 81 mg tablet,delayed 81 mg PO QAM #60 tabs 02/16/24 05/07/24 Rx release atorvastatin 20 mg tablet 20 mg PO DAILY #30 tabs 02/16/24 05/07/24 Rx anastrozole 1 mg tablet See Rx Instructions .Route 02/27/24 05/07/24 Rx .COMPLEX #30 tabs donepezil 10 mg tablet See Rx Instructions .Route 02/27/24 05/07/24 Rx .COMPLEX #90 tabs acetaminophen 325 mg capsule 650 mg PO Q4H PRN fever or pain 05/07/24 05/07/24 History benzonatate 200 mg capsule 200 mg PO BID PRN cough 05/07/24 05/07/24 History cholecalciferol (vitamin D3) 50 6,000 unit PO DAILY 05/07/24 05/07/24 History mcg (2,000 unit) capsule empagliflozin 25 mg tablet 25 mg PO DAILY 05/07/24 05/07/24 History (Jardiance) polyethylene glycol 3350 17 gram 17 g PO DAILY 05/07/24 05/07/24 History oral powder packet (Miralax) Allergies Allergy/AdvReac Type Severity Reaction Status Date / Time amoxicillin Allergy Severe DIFFICULTY Verified 05/07/24 09:52 BREATHING/HIVES Iodinated Contrast Media Allergy Severe Anaphylaxis Verified 05/07/24 09:52 lisinopril Allergy Severe Swelling Verified 05/07/24 09:52 of Lip/Tongue/Throat methotrexate Allergy Severe Hives Verified 05/07/24 09:52 Penicillins Allergy Severe DIFFICULTY Verified 05/07/24 09:52 BREATHING/HIVES tetracycline Allergy Severe Hives Verified 05/07/24 09:52 metformin Allergy Unknown Jittery Verified 05/07/24 09:52 adhesive tape AdvReac Intermediate SKIN PEELS Verified 05/07/24 09:52 OFF codeine AdvReac Mild NAUSEA/VOMI Verified 05/07/24 09:52 TING ioversol AdvReac Unknown DOESN'T Verified 05/07/24 09:52 REMEMBER Vital Signs Vital Signs - 24 hr 05/07/24 09:06 05/07/24 09:46 05/07/24 09:46 Temperature 98.2 F Pulse Rate 65 68 Respiratory Rate 16 Blood Pressure 91/56 L Pulse Oximetry 99 100 Oxygen Delivery Nasal Cannula Nasal Cannula Oxygen Flow Rate 2 2 05/07/24 10:01 05/07/24 10:17 05/07/24 10:30 Temperature 97.9 F Pulse Rate 70 69 80 Respiratory Rate 18 21 H 20 Blood Pressure 102/55 L 97/57 L Pulse Oximetry 97 97 100 Oxygen Delivery Oxygen Flow Rate 05/07/24 10:45 05/07/24 11:00 05/07/24 11:01 Temperature Pulse Rate 71 75 86 Respiratory Rate 22 H 27 H 19 Blood Pressure 110/67 Pulse Oximetry 55 L Oxygen Delivery Oxygen Flow Rate 05/07/24 11:49 05/07/24 11:58 05/07/24 12:40 Temperature 97.7 F 97.9 F 97.7 F Pulse Rate 75 74 79 Respiratory Rate 20 20 20 Blood Pressure 101/67 104/66 107/71 Pulse Oximetry 96 95 97 Oxygen Delivery Oxygen Flow Rate Exam Narrative: General: alert and comfortable Eyes: EOMI, PERRLA ENNT External ears normal, Neck is supple, no masses, Respiratory systems: Clear to auscultation Cardiovascular S1, S2, normal rhythm, no murmur, rub, or gallop; no thrill or palpable murmurs on palpation. Gastrointestinal: soft, non-tender, and non-distended abdomen with no masses; BS present Skin: no rash, lesions, ulcerations, subcutaneous nodules or induration Musculoskeletal: no abnormality and no tenderness, normal ROM Neurologic: Alert and oriented x3, non focal Mental Status Exam: normal affect H&P: Results Labs Labs: Short CBC 05/07/24 Range/Units 09:35 WBC 9.8 (4.5-10.0) K/mm3 Hgb 7.8 L (12.0-15.0) g/dL Hct 25.9 L (37.0-47.0) % Plt Count 542 H D (150-375) k/mm3 BMP 05/07/24 09:35 Sodium 138 Potassium 3.8 Chloride 104 Carbon Dioxide 28 BUN 22 H Creatinine 1.55 H Glucose 89 Calcium 8.5 Liver Function 05/07/24 Range/Units 09:35 Total Bilirubin 0.6 (0.2-1.3) mg/dL AST 35 (14-36) U/L ALT 19 (6-35) U/L Alkaline Phosphatase 104 (38-126) U/L Albumin 3.1 L (3.5-5.1) g/dL Assessment and Plan Assessment and plan (1) Acute hypoxemic respiratory failure: Code(s): J96.01 - Acute respiratory failure with hypoxia Status: Acute (2) Pneumonia: Qualifiers: Laterality: left Lung location: lower lobe of lung Pneumonia type: due to unspecified organism Qualified Code(s): J18.9 - Pneumonia, unspecified organism Code(s): J18.9 - Pneumonia, unspecified organism Status: Acute Plan Acute hypoxemic respiratory failure From pneumonia. Chest x-ray reviewed. Rocephin azithromycin. Blood and sputum culture MRSA pending . Pneumonia Chest x-ray reviewed, continue above. Anemia Hemoglobin 7.8 with thrombocytosis iron panel, FOBT pending, positive GI consulted. Monitor H&H. KURT on CPAP Continue CPAP. Paroxysmal atrial fibrillation Eliquis, titrate rate control. CKD stage stable Stable creatinine, monitor COPD continue home bronchodilator Hypertension titrate home medications with clinical course. Type 2 diabetes Sliding scale insulin with Accu-Cheks adjust with clinical course. DVT/PE On Eliquis Systolic CHF, EF 20-25% on LifeVest Continue medications monitor DVT prophylaxis on Eliquis DNR Hospitalist MIPS Advance Care Plan I have confirmed that the patient's Advanced Care Plan is present, code status is documented, or surrogate decision maker is listed in patient medical record.: Yes Medication Reconciliation I have utilized all available resources to obtain, update and review the patients current medications (includes all prescriptions, OTC, herbals, cannabis, and nutritional supplements).: Yes
[2024-05-07 15:46] LABS: Glucose Point of Care 84 mg/dl (65-105)
[2024-05-07 16:41] LABS: Iron 26 ug/dL (37-170)
[2024-05-07 16:50] LABS: Percent Iron Saturation 15 % (20-50)
[2024-05-07] MEDS: FERROUS SULFATE 325 MG TABLET DR BY MOUTH (18:49)
[2024-05-07] MEDS: MEMANTINE 10 MG TABLET PO (18:49)
[2024-05-07 20:44] LABS: Glucose Point of Care 83 mg/dl (65-105)
[2024-05-07 20:46] LABS: MRSA (PCR) DETECTED (NOT DETECTE)
[2024-05-07] MEDS: APIXABAN 5 MG TABLET PO (20:48)
--- NOTE | 2024-05-07 22:00 | PC.NURSE ---
pt transfered from ICU7 to rm [id number] Report recieved from luisana FIGUEREDO
[2024-05-08] VITALS (17 sets, daily range): BP systolic 95–135; BP diastolic 42–62; PULSE 59–95; RESP 16–20; TEMP 36.5–36.7; O2SAT 91–100
[2024-05-08 04:16] LABS: Basophils Percent Auto 0.2 % (0.2-1.2); Eosinophils Absolute Auto 0.2 K/mm3 (0-0.3); Eosinophils Percent Auto 2.1 % (0-4.4); Hematocrit 22.9 % (37.0-47.0); Immature Granulocyte Absolute 0.04 K/mm3 (0.00-0.031); Immature Granulocyte Percent A 0.5 % (0-0.5); Lymphocytes Absolute Auto 0.89 K/mm3 (0.9-3.2); Lymphocytes Percent Auto 10.7 % (18.3-44.2); Mean Corpuscular HGB Conc 30.6 g/dl (32-36); Mean Corpuscular Hemoglobin 28.9 pg (26-34); Mean Corpuscular Volume 94.6 fl (80-100); Mean Platelet Volume 9.8 fl (7.4-10.4); Monocytes Absolute Auto 0.8 K/mm3 (0.1-0.6); Monocytes Percent Auto 9.1 % (2.6-8.5); Neutrophils Absolute Auto 6.4 K/mm3 (1.3-6.7); Neutrophils Percent Auto 77.4 % (45.5-73.1); Platelet Count Result 457 k/mm3 (150-375); Red Blood Count 2.42 M/mm3 (4.2-5.4); Red Cell Distribution Width 16.8 % (11.5-14.5); White Blood Count 8.3 K/mm3 (4.5-10.0)
[2024-05-08 04:30] LABS: Alanine Aminotransferase 16 U/L (6-35); Albumin Level 2.5 g/dL (3.5-5.1); Alkaline Phosphatase 85 U/L (38-126); Anion Gap 5 mmol/L (4-12); Aspartate Amino Transferase 23 U/L (14-36); Bilirubin,Total 0.4 mg/dL (0.2-1.3); Blood Urea Nitrogen 22 mg/dL (7-17); Carbon Dioxide 26 mmol/L (22-30); Chloride 103 mmol/L (98-107); Estimated CRCL calculation 32 ml/min; Estimated Glomerular Filt Rate 38; Glucose 76 mg/dL (65-110); Magnesium 2.2 mg/dL (1.6-2.3); Potassium 3.8 mmol/L (3.4-5.0); Sodium 134 mmol/L (137-145)
[2024-05-08] MEDS: LEVOTHYROXINE SODIUM 112 MCG TABLET PO (06:14)
[2024-05-08 07:45] LABS: Glucose Point of Care 98 mg/dl (65-105)
[2024-05-08] MEDS: FERROUS SULFATE 325 MG TABLET DR BY MOUTH ×2 (08:35→16:22)
[2024-05-08] MEDS: ASPIRIN 81 MG ENTERIC TABLET PO (08:36)
[2024-05-08] MEDS: APIXABAN 5 MG TABLET PO (08:36)
[2024-05-08] MEDS: SPIRONOLACTONE 12.5 MG TABLET PO (08:36)
[2024-05-08] MEDS: EMPAGLIFLOZIN 25 MG TABLET PO (08:37)
[2024-05-08] MEDS: ATORVASTATIN 20 MG TABLET PO (08:37)
[2024-05-08] MEDS: AMIODARONE HCL 200 MG TABLET PO (08:37)
[2024-05-08] MEDS: SERTRALINE HCL 50 MG TABLET 200 MG PO (08:37)
[2024-05-08] MEDS: ANASTROZOLE (*CHEMO) 1 MG TABLET PO (08:37)
[2024-05-08] MEDS: MEMANTINE 10 MG TABLET PO ×2 (08:38→16:22)
[2024-05-08] MEDS: AZITHROMYCIN 500 MG/NS 250 ML 500 MG/250 ML BAG 250 MG IVPB (08:38)
--- NOTE | 2024-05-08 09:24 | P.PNIM_ITS ---
Progress Note: A&P Assessment and Plan (1) Cardiac arrest: Code(s): I46.9 - Cardiac arrest, cause unspecified Status: Acute (2) Shock: Code(s): R57.9 - Shock, unspecified Status: Acute (3) Decubitus ulcer: Code(s): L89.90 - Pressure ulcer of unspecified site, unspecified stage Status: Acute (4) Electrolyte abnormality: Code(s): E87.8 - Other disorders of electrolyte and fluid balance, not elsewhere classified Status: Acute (5) Acute kidney injury: Code(s): N17.9 - Acute kidney failure, unspecified Status: Acute (6) Acute kidney injury superimposed on CKD: Code(s): N17.9 - Acute kidney failure, unspecified; N18.9 - Chronic kidney disease, unspecified Status: Acute (7) Essential (primary) hypertension: Code(s): I10 - Essential (primary) hypertension Status: Chronic (8) Acute hypoxemic respiratory failure: Code(s): J96.01 - Acute respiratory failure with hypoxia Status: Acute (9) Pneumonia: Qualifiers: Laterality: left Lung location: lower lobe of lung Pneumonia type: due to unspecified organism Qualified Code(s): J18.9 - Pneumonia, unspecified organism Code(s): J18.9 - Pneumonia, unspecified organism Status: Acute Plan Acute hypoxemic respiratory failure From pneumonia. Chest x-ray reviewed. Rocephin azithromycin. Blood and sputum culture MRSA positive Continue Rocephin, switch from azithromycin to doxycycline IV . Pneumonia Chest x-ray reviewed, continue above. Symptomatic Anemia Hemoglobin 7.8 with thrombocytosis iron panel: Iron 26, saturation 15, suggesting iron deficient anemia FOBT pending, Patient on blood thinner, possible GI bleeding GI consulted. Monitor H&H. Hemoglobin 7.0 Transfuse 1 pack RBC KURT on CPAP Continue CPAP. Paroxysmal atrial fibrillation hold Eliquis,possible GIB hb is tending down titrate rate control. CKD stage stable Stable creatinine, monitor COPD continue home bronchodilator Hypertension titrate home medications with clinical course. Type 2 diabetes Sliding scale insulin with Accu-Cheks adjust with clinical course. Systolic CHF, EF 20-25% on LifeVest Continue medications monitor DVT/PE risk of gib Start ICD CKD stage 3 Creatinine stable DVT prophylaxis on Eliquis DNR Subjective Date/time seen: 05/08/24 09:24 Interval history: Patient is afebrile, blood pressure stable, Hemoglobin dropped to 7.0 Lab studies suggest iron deficiency Patient still has a cough with large amount phlegm. Patient shortness breath on exertion Exam Narrative: General: alert and comfortable Eyes: EOMI, PERRLA ENNT External ears normal, Neck is supple, no masses, Respiratory systems: Clear to auscultation Cardiovascular S1, S2, normal rhythm, no murmur, rub, or gallop; no thrill or palpable murmurs on palpation. Gastrointestinal: soft, non-tender, and non-distended abdomen with no masses; BS present Skin: no rash, lesions, ulcerations, subcutaneous nodules or induration Musculoskeletal: no abnormality and no tenderness, normal ROM Neurologic: Alert and oriented x3, non focal Mental Status Exam: normal affect Objective Data Vital Signs Vital Signs: Vital Signs - 24 hr 05/07/24 09:46 05/07/24 09:46 05/07/24 10:01 Temperature 97.9 F Pulse Rate 68 70 Respiratory Rate 18 Blood Pressure 102/55 L Pulse Oximetry 100 97 Oxygen Delivery Nasal Cannula Oxygen Flow Rate 2 Fraction of Inspired Oxygen 05/07/24 10:17 05/07/24 10:30 05/07/24 10:45 Temperature Pulse Rate 69 80 71 Respiratory Rate 21 H 20 22 H Blood Pressure 97/57 L Pulse Oximetry 97 100 55 L Oxygen Delivery Oxygen Flow Rate Fraction of Inspired Oxygen 05/07/24 11:00 05/07/24 11:01 05/07/24 11:49 Temperature 97.7 F Pulse Rate 75 86 75 Respiratory Rate 27 H 19 20 Blood Pressure 110/67 101/67 Pulse Oximetry 96 Oxygen Delivery Oxygen Flow Rate Fraction of Inspired Oxygen 05/07/24 11:58 05/07/24 12:40 05/07/24 15:57 Temperature 97.9 F 97.7 F 98.3 F Pulse Rate 74 79 74 Respiratory Rate 20 20 22 H Blood Pressure 104/66 107/71 109/56 L Pulse Oximetry 95 97 91 Oxygen Delivery Oxygen Flow Rate Fraction of Inspired Oxygen 05/07/24 16:00 05/07/24 20:00 05/07/24 20:00 Temperature Pulse Rate 74 64 64 Respiratory Rate 22 H Blood Pressure Pulse Oximetry 91 Oxygen Delivery Nasal Cannula Oxygen Flow Rate 2 Fraction of Inspired Oxygen 05/07/24 20:09 05/07/24 21:00 05/07/24 23:16 Temperature 97.6 F Pulse Rate 73 65 Respiratory Rate 21 H Blood Pressure 111/57 L Pulse Oximetry 92 92 Oxygen Delivery Nasal Cannula Oxygen Flow Rate 2 Fraction of Inspired Oxygen 28 05/08/24 00:00 05/08/24 03:52 05/08/24 07:53 Temperature Pulse Rate 63 62 Respiratory Rate Blood Pressure Pulse Oximetry 96 Oxygen Delivery Nasal Cannula Oxygen Flow Rate 2 Fraction of Inspired Oxygen 05/08/24 08:02 05/08/24 08:37 05/08/24 09:17 Temperature 97.7 F Pulse Rate 59 L 71 Respiratory Rate 20 Blood Pressure 135/42 L Pulse Oximetry 99 100 Oxygen Delivery Nasal Cannula Oxygen Flow Rate 2 Fraction of Inspired Oxygen Intake/Output Intake/Output: Intake & Output 05/05/24 05/07/24 05/07/24 05/08/24 23:59 00:59 23:59 23:59 Intake Total 290 400 Balance 290 400 Meds/Results Medications: Active Medications Generic Name Dose Route Start Last Admin Trade Name Freq PRN Reason Stop Dose Admin Amiodarone HCl 200 mg 05/08/24 08:00 05/08/24 08:37 Amiodarone Hcl 200 Mg Tablet PO 200 mg DAILY@0800 KEATON Administration Anastrozole 1 mg 05/08/24 09:00 05/08/24 08:37 Anastrozole (*Chemo) 1 Mg Tablet PO 1 mg DAILY KEATON Administration Apixaban 5 mg 05/07/24 21:00 05/08/24 08:36 Apixaban 5 Mg Tablet PO 5 mg Q12HR KEATON Administration Aspirin 81 mg 05/08/24 09:00 05/08/24 08:36 Aspirin 81 Mg Enteric Tablet PO 81 mg QAM KEATON Administration Atorvastatin Calcium 20 mg 05/08/24 09:00 05/08/24 08:37 Atorvastatin 20 Mg Tablet PO 20 mg DAILY [facility]ON Administration Dextrose 12.5 gm 05/07/24 15:28 Dextrose 50% 25 Gm/50 Ml Syringe IV PUSH PRN PRN Hypoglycemia Protocol Donepezil HCl 10 mg 05/08/24 09:00 Donepezil Hcl 10 Mg Tablet BY MOUTH DAILY [facility] Empagliflozin 25 mg 05/08/24 09:00 05/08/24 08:37 Empagliflozin 25 Mg Tablet PO 25 mg DAILY KEATON Administration Ferrous Sulfate 325 mg 05/07/24 17:00 05/08/24 08:35 Ferrous Sulfate [address] BY MOUTH 325 mg BID KEATON Administration Glucagon 1 mg 05/07/24 15:28 Glucagon For Inj 1 Mg Vial IM PRN PRN Hypoglycemia Protocol Glucose 15 gm 05/07/24 15:28 Glucose Oral Gel 15 Gm Of Glucse In 37.5 Gm Tube PO PRN PRN Hypoglycemia Protocol Ceftriaxone Sodium 1 gm in 50 mls @ 100 mls/hr 05/08/24 09:00 05/08/24 08:31 Rocephin 1 Gm/Ns 50 Ml IVPB 100 mls/hr Q24H KEATON Administration Azithromycin 500 mg in 250 mls @ 250 mls/hr 05/08/24 09:00 05/08/24 08:38 Zithromax IVPB 250 mls/hr Q24H KE[facility]ON Administration Dextrose 1,000 mls @ 100 mls/hr 05/07/24 15:28 Dextrose 5% 1,000 Ml IVPB PRN PRN Hypoglycemia Protocol Insulin Aspart 2 - 5 units 05/07/24 17:00 05/08/24 08:30 Insulin Aspart (*Bkc) 100 Units/Ml SUB-Q Not Given TIDWM KEATON Protocol Insulin Aspart 1 - 2 units 05/07/24 21:00 05/07/24 20:48 Insulin Aspart (*Bkc) 100 Units/Ml SUB-Q Not Given HS [facility]ON Protocol Levothyroxine Sodium 112 mcg 05/08/24 06:30 05/08/24 06:14 Levothyroxine Sodium 112 Mcg Tablet PO 112 mcg DAILY@0630 [facility]ON Administration Memantine 10 mg 05/07/24 17:00 05/08/24 08:38 Memantine 10 Mg Tablet PO 10 mg BID KEATON Administration Sertraline HCl 200 mg 05/08/24 09:00 05/08/24 08:37 Sertraline Hcl 50 Mg Tablet PO 200 mg DAILY KEATON Administration Spironolactone 12.5 mg 05/08/24 09:00 05/08/24 08:36 Spironolactone 12.5 Mg Tablet PO 12.5 mg DAILY KEATON Administration Radiology Results: ITS Impressions Chest X-Ray 05/07/24 10:14 IMPRESSION: Left basilar atelectasis versus pneumonia. Highly suggestive pleural thickening in the left lung base laterally. Labs Labs: Laboratory Results - last 24 hr 05/07/24 05/07/24 05/07/24 09:34 09:35 13:18 WBC 9.8 RBC 2.72 L Hgb 7.8 L Hct 25.9 L MCV 95.2 MCH 28.7 MCHC 30.1 L RDW 16.9 H Plt Count 542 H D MPV 10.0 Immature Gran % (Auto) 0.4 Neut % (Auto) 84.7 H Lymph % (Auto) 8.0 L Izard % (Auto) 5.9 Eos % (Auto) 0.8 Baso % (Auto) 0.2 Lymph # (Auto) 0.79 L Izard # (Auto) 0.6 Eos # (Auto) 0.1 Baso # (Auto) 0.0 Abs Immat Gran (auto) 0.04 H Absolute Neuts (auto) 8.3 H Absolute Nucleated RBC 0.000 Nucleated RBC % 0.0 Sodium 138 Potassium 3.8 Chloride 104 Carbon Dioxide 28 Anion Gap 6 BUN 22 H Creatinine 1.55 H Estim Creat Clear Calc 30 Estimated GFR 33 L Glucose 89 POC Capillary Glucose 88 Lactic Acid 0.9 Calcium 8.5 Magnesium Iron 26 L TIBC 171 L % Saturation 15 L Ferritin 165.00 Total Bilirubin 0.6 AST 35 ALT 19 Alkaline Phosphatase 104 Total Protein 6.0 L Albumin 3.1 L Nasal MRSA (PCR) Influenza A (RT-PCR) Negative Influenza B (RT-PCR) Negative RSV (RT-PCR) Negative SARS-CoV-2 RNA (RT-PCR) Negative 05/07/24 05/07/24 05/07/24 15:26 18:51 20:10 WBC RBC Hgb Hct MCV MCH MCHC RDW Plt Count MPV Immature Gran % (Auto) Neut % (Auto) Lymph % (Auto) Izard % (Auto) Eos % (Auto) Baso % (Auto) Lymph # (Auto) Izard # (Auto) Eos # (Auto) Baso # (Auto) Abs Immat Gran (auto) Absolute Neuts (auto) Absolute Nucleated RBC Nucleated RBC % Sodium Potassium Chloride Carbon Dioxide Anion Gap BUN Creatinine Estim Creat Clear Calc Estimated GFR Glucose POC Capillary Glucose 84 83 Lactic Acid Calcium Magnesium Iron TIBC % Saturation Ferritin Total Bilirubin AST ALT Alkaline Phosphatase Total Protein Albumin Nasal MRSA (PCR) Detected A* Influenza A (RT-PCR) Influenza B (RT-PCR) RSV (RT-PCR) SARS-CoV-2 RNA (RT-PCR) 05/08/24 05/08/24 04:05 07:35 WBC 8.3 RBC 2.42 L Hgb 7.0 L Hct 22.9 L MCV 94.6 MCH 28.9 MCHC 30.6 L RDW 16.8 H Plt Count 457 H MPV 9.8 Immature Gran % (Auto) 0.5 Neut % (Auto) 77.4 H Lymph % (Auto) 10.7 L Izard % (Auto) 9.1 H Eos % (Auto) 2.1 Baso % (Auto) 0.2 Lymph # (Auto) 0.89 L Izard # (Auto) 0.8 H Eos # (Auto) 0.2 Baso # (Auto) 0.0 Abs Immat Gran (auto) 0.04 H Absolute Neuts (auto) 6.4 Absolute Nucleated RBC 0.000 Nucleated RBC % 0.0 Sodium 134 L Potassium 3.8 Chloride 103 Carbon Dioxide 26 Anion Gap 5 BUN 22 H Creatinine 1.36 H Estim Creat Clear Calc 32 Estimated GFR 38 L Glucose 76 POC Capillary Glucose 98 Lactic Acid Calcium 8.0 L Magnesium 2.2 Iron TIBC % Saturation Ferritin Total Bilirubin 0.4 AST 23 ALT 16 Alkaline Phosphatase 85 Total Protein 5.0 L Albumin 2.5 L Nasal MRSA (PCR) Influenza A (RT-PCR) Influenza B (RT-PCR) RSV (RT-PCR) SARS-CoV-2 RNA (RT-PCR)
[2024-05-08 11:30] LABS: Glucose Point of Care 88 mg/dl (65-105)
[2024-05-08] MEDS: VANCOMYCIN 2,000 MG/NS 500 ML 2,000 MG/500 ML BAG 250 MG IVPB (12:15)
[2024-05-08] MEDS: SODIUM CHLORIDE 0.9% IV 250 ML 30 ML IV CONT (12:16)
[2024-05-08] MEDS: TUBING, BLOOD PLUM PUMP TUBING 1 EACH XX (12:16)
--- NOTE | 2024-05-08 15:00 | PC.NURSE ---
Notified Dr Rodarte that the blood has transfused. No new orders at this time.
[2024-05-08 15:40] LABS: Glucose Point of Care 103 mg/dl (65-105)
[2024-05-08] MEDS: polyethylene glycoL 3350 17 GM POWD.PACK PO (17:10)
[2024-05-08 21:09] LABS: Glucose Point of Care 112 mg/dl (65-105)
[2024-05-09] VITALS (11 sets, daily range): BP systolic 93–110; BP diastolic 51–70; PULSE 59–100; RESP 17–20; TEMP 36.1–36.8; O2SAT 90–96
[2024-05-09] MEDS: LEVOTHYROXINE SODIUM 112 MCG TABLET PO (05:02)
[2024-05-09 06:10] LABS: Estimated CRCL calculation 35 ml/min; Estimated Glomerular Filt Rate 42
[2024-05-09 07:44] LABS: Glucose Point of Care 83 mg/dl (65-105)
[2024-05-09 08:28] LABS: Glucose Point of Care 81 mg/dl (65-105)
--- NOTE | 2024-05-09 08:53 | P.PNIM_ITS ---
Progress Note: A&P Assessment and Plan (1) Cardiac arrest: Code(s): I46.9 - Cardiac arrest, cause unspecified Status: Acute (2) Shock: Code(s): R57.9 - Shock, unspecified Status: Acute (3) Decubitus ulcer: Code(s): L89.90 - Pressure ulcer of unspecified site, unspecified stage Status: Acute (4) Electrolyte abnormality: Code(s): E87.8 - Other disorders of electrolyte and fluid balance, not elsewhere classified Status: Acute (5) Acute kidney injury: Code(s): N17.9 - Acute kidney failure, unspecified Status: Acute (6) Acute kidney injury superimposed on CKD: Code(s): N17.9 - Acute kidney failure, unspecified; N18.9 - Chronic kidney disease, unspecified Status: Acute (7) Essential (primary) hypertension: Code(s): I10 - Essential (primary) hypertension Status: Chronic (8) Acute hypoxemic respiratory failure: Code(s): J96.01 - Acute respiratory failure with hypoxia Status: Acute (9) Pneumonia: Qualifiers: Laterality: left Lung location: lower lobe of lung Pneumonia type: due to unspecified organism Qualified Code(s): J18.9 - Pneumonia, unspecified organism Code(s): J18.9 - Pneumonia, unspecified organism Status: Acute Plan Acute hypoxemic respiratory failure From pneumonia. Chest x-ray reviewed. Rocephin azithromycin. Blood and sputum culture MRSA positive Continue Rocephin, switch from azithromycin to doxycycline IV . Pneumonia Chest x-ray reviewed, continue above. Symptomatic Anemia Hemoglobin 7.8 with thrombocytosis iron panel: Iron 26, saturation 15, suggesting iron deficient anemia FOBT pending, Patient on blood thinner, possible GI bleeding GI consulted. Monitor H&H. Hemoglobin 7.0 Transfuse 1 pack RBC, hemoglobin 9.2 today KURT on CPAP Continue CPAP. Paroxysmal atrial fibrillation hold Eliquis,possible GIB hb is tending down titrate rate control. CKD stage stable Stable creatinine, monitor COPD continue home bronchodilator Hypertension titrate home medications with clinical course. Type 2 diabetes Sliding scale insulin with Accu-Cheks adjust with clinical course. Systolic CHF, EF 20-25% on LifeVest Continue medications monitor DVT/PE risk of gib Start ICD CKD stage 3 Creatinine stable DVT prophylaxis on Eliquis DNR Subjective Date/time seen: 05/09/24 08:53 Interval history: Patient is afebrile, blood pressure stable, Patient still has a cough with large amount phlegm. Patient shortness breath on exertion, patient feels better Hemoglobin 9.2 today Exam Narrative: General: alert and comfortable Eyes: EOMI, PERRLA ENNT External ears normal, Neck is supple, no masses, Respiratory systems: Clear to auscultation Cardiovascular S1, S2, normal rhythm, no murmur, rub, or gallop; no thrill or palpable murmurs on palpation. Gastrointestinal: soft, non-tender, and non-distended abdomen with no masses; BS present Skin: no rash, lesions, ulcerations, subcutaneous nodules or induration Musculoskeletal: no abnormality and no tenderness, normal ROM Neurologic: Alert and oriented x3, non focal Mental Status Exam: normal affect Objective Data Vital Signs Vital Signs: Vital Signs - 24 hr 05/08/24 09:17 05/08/24 12:00 05/08/24 12:06 Temperature 97.9 F Pulse Rate 76 76 Respiratory Rate 16 Blood Pressure 98/58 L Pulse Oximetry 100 91 Oxygen Delivery Nasal Cannula Oxygen Flow Rate 2 05/08/24 12:26 05/08/24 13:26 05/08/24 14:26 Temperature 97.9 F 98.1 F 97.9 F Pulse Rate 74 81 76 Respiratory Rate 18 17 18 Blood Pressure 110/62 100/60 100/58 L Pulse Oximetry 94 93 97 Oxygen Delivery Oxygen Flow Rate 05/08/24 14:39 05/08/24 16:00 05/08/24 16:03 Temperature 97.9 F 97.9 F Pulse Rate 73 74 76 Respiratory Rate 18 20 Blood Pressure 102/61 95/56 L Pulse Oximetry 99 96 Oxygen Delivery Oxygen Flow Rate 05/08/24 20:00 05/08/24 20:00 05/08/24 20:29 Temperature 98.0 F Pulse Rate 84 95 Respiratory Rate 18 Blood Pressure 98/58 L Pulse Oximetry 93 97 Oxygen Delivery Nasal Cannula Oxygen Flow Rate 2 05/09/24 00:00 05/09/24 04:00 05/09/24 05:31 Temperature 98.3 F Pulse Rate 70 81 77 Respiratory Rate 18 Blood Pressure 93/51 L Pulse Oximetry 90 Oxygen Delivery Oxygen Flow Rate 05/09/24 08:00 Temperature 97.0 F L Pulse Rate 62 Respiratory Rate 18 Blood Pressure 104/58 L Pulse Oximetry 94 Oxygen Delivery Oxygen Flow Rate Intake/Output Intake/Output: Intake & Output 05/07/24 05/07/24 05/08/24 05/09/24 00:59 23:59 23:59 23:59 Intake Total 290 1900 Output Total 625 50 Balance 290 1275 -50 Meds/Results Medications: Active Medications Generic Name Dose Route Start Last Admin Trade Name Freq PRN Reason Stop Dose Admin Amiodarone HCl 200 mg 05/08/24 08:00 05/08/24 08:37 Amiodarone Hcl 200 Mg Tablet PO 200 mg DAILY@0800 KEATON Administration Anastrozole 1 mg 05/08/24 09:00 05/08/24 08:37 Anastrozole (*Chemo) 1 Mg Tablet PO 1 mg DAILY [facility]ON Administration Apixaban 5 mg 05/07/24 21:00 05/08/24 08:36 Apixaban 5 Mg Tablet PO 5 mg Q12HR KEATON Administration Aspirin 81 mg 05/08/24 09:00 05/08/24 08:36 Aspirin 81 Mg Enteric Tablet PO 81 mg QAM KEATON Administration Atorvastatin Calcium 20 mg 05/08/24 09:00 05/08/24 08:37 Atorvastatin 20 Mg Tablet PO 20 mg DAILY KE[facility]ON Administration Dextrose 12.5 gm 05/07/24 15:28 Dextrose 50% 25 Gm/50 Ml Syringe IV PUSH PRN PRN Hypoglycemia Protocol Donepezil HCl 10 mg 05/08/24 09:00 Donepezil Hcl 10 Mg Tablet BY MOUTH DAILY [facility] Empagliflozin 25 mg 05/08/24 09:00 05/08/24 08:37 Empagliflozin 25 Mg Tablet PO 25 mg DAILY [facility]ON Administration Ferrous Sulfate 325 mg 05/07/24 17:00 05/08/24 16:22 Ferrous Sulfate [address] BY MOUTH 325 mg BID KEATON Administration Glucagon 1 mg 05/07/24 15:28 Glucagon For Inj 1 Mg Vial IM PRN PRN Hypoglycemia Protocol Glucose 15 gm 05/07/24 15:28 Glucose Oral Gel 15 Gm Of Glucse In 37.5 Gm Tube PO PRN PRN Hypoglycemia Protocol Ceftriaxone Sodium 1 gm in 50 mls @ 100 mls/hr 05/08/24 09:00 05/08/24 09:00 Rocephin 1 Gm/Ns 50 Ml IVPB Infused Q24H KEATON Infusion Dextrose 1,000 mls @ 100 mls/hr 05/07/24 15:28 Dextrose 5% 1,000 Ml IVPB PRN PRN Hypoglycemia Protocol Vancomycin HCl 1,500 mg in 500 mls @ 250 mls/hr 05/09/24 23:00 Vancomycin 1,500 Mg/Ns 500 Ml IVPB Q36H KEATON Insulin Aspart 2 - 5 units 05/07/24 17:00 05/08/24 16:28 Insulin Aspart (*Bkc) 100 Units/Ml SUB-Q Not Given TIDWM KEATON Protocol Insulin Aspart 1 - 2 units 05/07/24 21:00 05/09/24 02:08 Insulin Aspart (*Bkc) 100 Units/Ml SUB-Q Not Given HS [facility] Protocol Levothyroxine Sodium 112 mcg 05/08/24 06:30 05/09/24 05:02 Levothyroxine Sodium 112 Mcg Tablet PO 112 mcg DAILY@0630 KEATON Administration Memantine 10 mg 05/07/24 17:00 05/08/24 16:22 Memantine 10 Mg Tablet PO 10 mg BID KEATON Administration Polyethylene Glycol 17 gm 05/08/24 16:30 05/08/24 17:10 Polyethylene Glycol 3350 17 Gm Powd.Pack PO 17 gm QAM KEATON Administration Sertraline HCl 200 mg 05/08/24 09:00 05/08/24 08:37 Sertraline Hcl 50 Mg Tablet PO 200 mg DAILY [facility] Administration Spironolactone 12.5 mg 05/08/24 09:00 05/08/24 08:36 Spironolactone 12.5 Mg Tablet PO 12.5 mg DAILY KEATON Administration Radiology Results: ITS Impressions Chest X-Ray 05/07/24 10:14 IMPRESSION: Left basilar atelectasis versus pneumonia. Highly suggestive pleural thickening in the left lung base laterally. Labs Labs: Laboratory Results - last 24 hr 05/08/24 05/08/24 05/08/24 10:15 11:21 15:27 Creatinine Estim Creat Clear Calc Estimated GFR POC Capillary Glucose 88 103 Blood Type A Negative Antibody Screen Negative Crossmatch See Detail 05/08/24 05/09/24 05/09/24 20:27 05:44 07:35 Creatinine 1.24 H Estim Creat Clear Calc 35 Estimated GFR 42 L POC Capillary Glucose 112 H 83 Blood Type Antibody Screen Crossmatch 05/09/24 08:22 Creatinine Estim Creat Clear Calc Estimated GFR POC Capillary Glucose 81 Blood Type Antibody Screen Crossmatch
[2024-05-09] MEDS: polyethylene glycoL 3350 17 GM POWD.PACK PO (08:59)
[2024-05-09] MEDS: MEMANTINE 10 MG TABLET PO ×2 (09:00→17:12)
[2024-05-09] MEDS: ANASTROZOLE (*CHEMO) 1 MG TABLET PO (09:00)
[2024-05-09] MEDS: SERTRALINE HCL 50 MG TABLET 200 MG PO (09:00)
[2024-05-09] MEDS: SPIRONOLACTONE 12.5 MG TABLET PO (09:00)
[2024-05-09] MEDS: ATORVASTATIN 20 MG TABLET PO (09:00)
[2024-05-09] MEDS: FERROUS SULFATE 325 MG TABLET DR BY MOUTH ×2 (09:00→17:12)
[2024-05-09] MEDS: AMIODARONE HCL 200 MG TABLET PO (09:00)
[2024-05-09] MEDS: ASPIRIN 81 MG ENTERIC TABLET PO (09:00)
[2024-05-09] MEDS: EMPAGLIFLOZIN 25 MG TABLET PO (09:15)
[2024-05-09 09:24] LABS: Basophils Percent Auto 0.4 % (0.2-1.2); Eosinophils Absolute Auto 0.2 K/mm3 (0-0.3); Eosinophils Percent Auto 1.9 % (0-4.4); Hematocrit 29.9 % (37.0-47.0); Hemoglobin 9.2 g/dL (12.0-15.0); Immature Granulocyte Absolute 0.03 K/mm3 (0.00-0.031); Immature Granulocyte Percent A 0.4 % (0-0.5); Lymphocytes Percent Auto 7.7 % (18.3-44.2); Mean Corpuscular HGB Conc 30.8 g/dl (32-36); Mean Corpuscular Hemoglobin 28.8 pg (26-34); Mean Corpuscular Volume 93.4 fl (80-100); Mean Platelet Volume 9.9 fl (7.4-10.4); Monocytes Absolute Auto 0.6 K/mm3 (0.1-0.6); Monocytes Percent Auto 7.5 % (2.6-8.5); Neutrophils Absolute Auto 6.4 K/mm3 (1.3-6.7); Neutrophils Percent Auto 82.1 % (45.5-73.1); Platelet Count Result 482 k/mm3 (150-375); Red Cell Distribution Width 17.7 % (11.5-14.5); White Blood Count 7.8 K/mm3 (4.5-10.0)
[2024-05-09 09:35] LABS: Anion Gap 5 mmol/L (4-12); Blood Urea Nitrogen 19 mg/dL (7-17); Calcium 8.2 mg/dL (8.4-10.2); Carbon Dioxide 27 mmol/L (22-30); Chloride 103 mmol/L (98-107); Estimated CRCL calculation 35 ml/min; Estimated Glomerular Filt Rate 42; Glucose 91 mg/dL (65-110); Potassium 4.2 mmol/L (3.4-5.0); Sodium 135 mmol/L (137-145)
[2024-05-09 11:17] LABS: Glucose Point of Care 87 mg/dl (65-105)
--- NOTE | 2024-05-09 11:34 | P.CONGI_ITS ---
Assessment and Plan Assessment and plan (1) Iron deficiency anemia: Code(s): D50.9 - Iron deficiency anemia, unspecified Status: Acute Assessment and Plan: Anemia/Suspected GI bleed: Current admission HGB/HCT 7.8/25.9 which is lower than baseline range of 10-11. Iron studies suggest iron deficiency. Transfused one unit of PRBC yesterday with hemoglobin up to 9.2 this morning. No overt blood loss, with no symptoms of nausea, vomiting, abdominal pain or black stools, no evidence of active GI bleed at this time. given pt currently diagnosis of pneumonia and cardiovascular state, recommend conservative treatment at this time. will considered scopes only if any visible evidence of GI blood loss or change in status. - Start pantoprazole 40 mg IV push BID. - Monitor H&H. - Monitor for signs/symptoms of active GI bleeding (2) Acute kidney injury: Code(s): N17.9 - Acute kidney failure, unspecified Status: Acute (3) Pneumonia: Qualifiers: Laterality: left Lung location: lower lobe of lung Pneumonia type: due to unspecified organism Qualified Code(s): J18.9 - Pneumonia, unspecified organism Code(s): J18.9 - Pneumonia, unspecified organism Status: Acute (4) Acute hypoxemic respiratory failure: Code(s): J96.01 - Acute respiratory failure with hypoxia Status: Acute GI Consult Note Consult date/time: 05/09/24 11:34 Reason for consult: Severe anemia, suspected GI bleed HPI: This is a pleasant 74 year old female with a past medical surgical history of PUD, anemia chronic disease, CHF with ejection fraction of 20-25% on LifeVest, AFib on Eliquis, SVT and PE, sleep apnea on CPAP, COPD, CKD, invasive ductal carcinoma left breast whom we were ask to see for severe anemia and suspected GI bleed. She presents to [facility] yesterday for hypoxia, after she was found not wearing her CPAP, oxygen saturations in 70's. Chest X-ray revealed pneumonia and she admitted. she has history of chronic anemia with hemoglobin ranging 10-11s as baseline. Hemoglobin down to 7.8 on admission and transfusion with one unit PRBC. Iron studies revealed iron deficiency: iron 26, TIBC 171, iron saturation 15% ferritin 165. Per review of records, pt appears to have history peptic ulcer disease, however she is not aware this. She is from [facility] and does not appear to be taking any PPI. She denies any overt blood loss. Denies any recent or chronic history of nausea, vomiting, abdominal pain, or black stools. She denies any diarrhea or recent change in bowel habits. Reports last bowel movement was yesterday and formed. Reports good appetite normal although she did not eat much breakfast this morning. She reports some sinus drainage and foam in her mouth for about a week, denies blood in sputum. She denies any dysphagia. She denies any acid reflux symptoms. She reports occasional ibuprofen use but not regularly. She does not recall if she had an EGD in the past. Last colonoscopy in 2018 was normal. ENDOSCOPY HISTORY: EGD: No recent EGD available COLONOSCOPY: 01/06/2018 (Dr. Murphy) for history of colon polyps Findings: Extensive diverticulosis noted in sigmoid to proximal descending colon Recommend 5 year recall LABS AND STOOL STUDIES: HGB 7.8, HCT 25.9 on admission with repeat H/H 9.2/29.9 after 1 unit PRBCs Iron 26, TIBC 171, Iron saturation 15%, Ferritin 165 Creatinine 1.24, BUN 19 No recent stool studies available at today's visit Review of Systems 2 Constitutional: Constitutional: Denies anorexia and Denies fatigue Eyes: Eyes: Denies change in vision ENT: Denies hoarseness Cardiovascular: Cardiovascular: Denies chest pain Respiratory: Respiratory: Reports cough Gastrointestinal: Gastrointestinal: Reports as per HPI Genitourinary: Genitourinary: Denies urinary frequency Musculoskeletal: Musculoskeletal: Reports no additional musculoskeletal complaints Integumentary/Breasts: Skin/Breast: Denies rash and Denies jaundice Neurologic: Denies abnormal gait Psychiatric: Psychiatric: Denies change in appetite Endocrine: Endocrine: Denies fatigue Hematologic/Lymphatic: Hematologic/Lymphatic: Denies easy bruising Allergic/Immunologic: Allergic/Immunologic: Denies GI upset with certain foods PMFSH Past Medical History Medical History (Updated 05/09/24 @ 13:05 by JOANNA EdgarN-Earnest) Iron deficiency anemia Acute anxiety Ataxia Low vitamin B12 level Dementia on donepezil and memantine Urine incontinence Depression with anxiety Degenerative arthritis of knee, bilateral Cyst Obesity 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 Bullous pemphigoid On daily prednisone. 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 Neoadjuvant chemotherapy with TCH and Perjeta. status left breast mastectomy with sentinel lymph node biopsy on 07/31/2019. Obstructive sleep apnea on CPAP Pulmonary embolism Surgical History Surgical History H/O dilation and curettage H/O oophorectomy one ovary-unsure side History of cardiac catheterization History of total mastectomy of left breast (~07/2019) History of cystoscopy With lithotripsy and stent placement. History of cholecystectomy History of bilateral cataract extraction History of tubal ligation History of appendectomy History of hysterectomy Status post cataract extraction of both eyes with insertion of intraocular lens Hx of cholecystectomy History of partial mastectomy of left breast Approximately 2017 Family History Family History Father Acute myocardial infarction Father Cerebrovascular accident Acute myocardial infarction Tobacco abuse Mother Cerebrovascular accident Sibling No problems noted. Social History Social History Social History: The patient is never and has no children. 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 She is currently in assisted living at [facility], and has been there for a couple of months since she started chemotherapy. She also owns a home in [place], where she hopes to return. Her [id number], Sofia, is her surrogate decision maker. She wishes to be a full code. 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 Gender identity (if verbalized by the patient): Female Sexual Orientation (if Verbalized by the Patient): Straight or Heterosexual Spiritual care concerns: No Agree to blood products: Yes Meds Home Medications and Allergies Home Medications ?Medication ?Instructions ?Recorded ?Confirmed ?Type blood sugar diagnostic (Contour #100 ea 05/03/19 05/07/24 Rx Next Test Strips) blood sugar diagnostic (Blood #100 ea 12/25/19 05/07/24 Rx Glucose Test strips) lancets (Lancets, Super Thin) #100 ea 12/25/19 05/07/24 Rx hydrocolloid dressing 4 X 4 #20 ea 12/15/21 05/07/24 Rx (DuoDERM CGF Adhesive Border Dressing) silicone,dressing-foam bandage 3 #10 ea 02/18/23 05/07/24 Rx X 3 albuterol sulfate 90 mcg/actuation 1 inh inhalation Q4H PRN shortness 05/10/23 05/07/24 Rx aerosol inhaler (ProAir HFA) of breath or wheezing #6.7 grams blood-glucose meter (Accu-Chek #1 ea 08/03/23 05/07/24 Rx Guide Glucose Meter) foam bandage 9.2 X 9.2 (Mepilex #5 ea 09/06/23 05/07/24 Rx Border Sacrum) potassium chloride 20 mEq 20 meq PO DAILY #30 tabs 12/16/23 05/07/24 Rx tablet,extended release apixaban 5 mg tablet (Eliquis) 5 mg PO Q12HR #60 tabs 01/03/24 05/07/24 Rx furosemide 20 mg tablet 20 mg PO BID #60 tabs 01/15/24 05/07/24 Rx cyanocobalamin (vitamin B-12) 1,000 mcg PO DAILY 02/05/24 05/07/24 History 1,000 mcg tablet (Vitamin B-12) ferrous sulfate 325 mg (65 mg 325 mg PO BID 02/05/24 05/07/24 History iron) tablet (FeroSul) levothyroxine 112 mcg tablet 112 mcg PO DAILY 02/05/24 05/07/24 History memantine 10 mg tablet 10 mg PO BID 02/05/24 05/07/24 History sertraline 100 mg tablet 200 mg PO DAILY 02/05/24 05/07/24 History spironolactone 25 mg tablet 12.5 mg PO DAILY 02/05/24 05/07/24 History amiodarone 200 mg tablet (Pacerone) 200 mg PO DAILY@0800 #30 tabs 02/16/24 05/07/24 Rx aspirin 81 mg tablet,delayed 81 mg PO QAM #60 tabs 02/16/24 05/07/24 Rx release atorvastatin 20 mg tablet 20 mg PO DAILY #30 tabs 02/16/24 05/07/24 Rx anastrozole 1 mg tablet See Rx Instructions .Route 02/27/24 05/07/24 Rx .COMPLEX #30 tabs donepezil 10 mg tablet See Rx Instructions .Route 02/27/24 05/07/24 Rx .COMPLEX #90 tabs acetaminophen 325 mg capsule 650 mg PO Q4H PRN fever or pain 05/07/24 05/07/24 History benzonatate 200 mg capsule 200 mg PO BID PRN cough 05/07/24 05/07/24 History cholecalciferol (vitamin D3) 50 6,000 unit PO DAILY 05/07/24 05/07/24 History mcg (2,000 unit) capsule empagliflozin 25 mg tablet 25 mg PO DAILY 05/07/24 05/07/24 History (Jardiance) polyethylene glycol 3350 17 gram 17 g PO DAILY 05/07/24 05/07/24 History oral powder packet (Miralax) Allergies Allergy/AdvReac Type Severity Reaction Status Date / Time amoxicillin Allergy Severe DIFFICULTY Verified 05/07/24 09:52 BREATHING/HIVES Iodinated Contrast Media Allergy Severe Anaphylaxis Verified 05/07/24 09:52 lisinopril Allergy Severe Swelling Verified 05/07/24 09:52 of Lip/Tongue/Throat methotrexate Allergy Severe Hives Verified 05/07/24 09:52 Penicillins Allergy Severe DIFFICULTY Verified 05/07/24 09:52 BREATHING/HIVES tetracycline Allergy Severe Hives Verified 05/07/24 09:52 metformin Allergy Unknown Jittery Verified 05/07/24 09:52 adhesive tape AdvReac Intermediate SKIN PEELS Verified 05/07/24 09:52 OFF codeine AdvReac Mild NAUSEA/VOMI Verified 05/07/24 09:52 TING ioversol AdvReac Unknown DOESN'T Verified 05/07/24 09:52 REMEMBER Vital Signs Vital Signs - 24 hr 05/08/24 12:00 05/08/24 12:06 05/08/24 12:26 Temperature 97.9 F 97.9 F Pulse Rate 76 76 74 Respiratory Rate 16 18 Blood Pressure 98/58 L 110/62 Pulse Oximetry 91 94 Oxygen Delivery Oxygen Flow Rate 05/08/24 13:26 05/08/24 14:26 05/08/24 14:39 Temperature 98.1 F 97.9 F 97.9 F Pulse Rate 81 76 73 Respiratory Rate 17 18 18 Blood Pressure 100/60 100/58 L 102/61 Pulse Oximetry 93 97 99 Oxygen Delivery Oxygen Flow Rate 05/08/24 16:00 05/08/24 16:03 05/08/24 20:00 Temperature 97.9 F Pulse Rate 74 76 Respiratory Rate 20 Blood Pressure 95/56 L Pulse Oximetry 96 93 Oxygen Delivery Nasal Cannula Oxygen Flow Rate 2 05/08/24 20:00 05/08/24 20:29 05/09/24 00:00 Temperature 98.0 F Pulse Rate 84 95 70 Respiratory Rate 18 Blood Pressure 98/58 L Pulse Oximetry 97 Oxygen Delivery Oxygen Flow Rate 05/09/24 04:00 05/09/24 05:31 05/09/24 08:00 Temperature 98.3 F 97.0 F L Pulse Rate 81 77 62 Respiratory Rate 18 18 Blood Pressure 93/51 L 104/58 L Pulse Oximetry 90 94 Oxygen Delivery Oxygen Flow Rate 05/09/24 09:15 Temperature Pulse Rate Respiratory Rate Blood Pressure Pulse Oximetry 94 Oxygen Delivery Nasal Cannula Oxygen Flow Rate 2 Exam 2 Const: General: comfortable and no acute distress HENMT: Face/Nose/Sinus: Normal nares present Eyes: Sclera: sclerae normal Neck: Neck: supple Resp: Auscultation: crackles bilateral Cardio: Rate: regular rate Rhythm: regular rhythm GI: Inspection: normal to inspection GI Palp: No abdominal tenderness, Yes Soft to palpation and No Guarding due to palpation present (GI) Auscultation: normal bowel sounds Rectal Exam: deferred Neuro: Speech: normal speech Psych: Mental Status: mental status grossly normal Results Labs 05/09/24 09:11 05/09/24 09:11 Labs: Short CBC 05/09/24 Range/Units 09:11 WBC 7.8 (4.5-10.0) K/mm3 Hgb 9.2 L (12.0-15.0) g/dL Hct 29.9 L (37.0-47.0) % Plt Count 482 H (150-375) k/mm3 BMP 05/09/24 05/09/24 05:44 09:11 Sodium 135 L Potassium 4.2 Chloride 103 Carbon Dioxide 27 BUN 19 H Creatinine 1.24 H 1.24 H Glucose 91 Calcium 8.2 L
[2024-05-09 16:37] LABS: Glucose Point of Care 108 mg/dl (65-105)
--- NOTE | 2024-05-09 17:57 | PC.NURSE ---
On 05/09/24, the student, Olivia Tesfaye, provided care and completed [facility] documentation on this patient. I have reviewed the student's documentation and agree with the findings.
[2024-05-09] MEDS: PANTOPRAZOLE SODIUM IV 40 MG VIAL IV PUSH (19:56)
[2024-05-09 21:09] LABS: Glucose Point of Care 87 mg/dl (65-105)
[2024-05-09] MEDS: VANCOMYCIN 1,500 MG/NS 500 ML 1,500 MG/500 ML BAG 250 MG IVPB (21:59)
[2024-05-10] VITALS (13 sets, daily range): BP systolic 98–115; BP diastolic 62–71; PULSE 68–85; RESP 18; TEMP 36.4–36.8; O2SAT 90–96
[2024-05-10] MEDS: LEVOTHYROXINE SODIUM 112 MCG TABLET PO (05:23)
[2024-05-10 05:38] LABS: Basophils Percent Auto 0.4 % (0.2-1.2); Eosinophils Absolute Auto 0.2 K/mm3 (0-0.3); Eosinophils Percent Auto 2.4 % (0-4.4); Hematocrit 28.5 % (37.0-47.0); Hemoglobin 8.8 g/dL (12.0-15.0); Immature Granulocyte Absolute 0.03 K/mm3 (0.00-0.031); Immature Granulocyte Percent A 0.4 % (0-0.5); Lymphocytes Absolute Auto 0.71 K/mm3 (0.9-3.2); Lymphocytes Percent Auto 9.6 % (18.3-44.2); Mean Corpuscular HGB Conc 30.9 g/dl (32-36); Mean Corpuscular Hemoglobin 28.6 pg (26-34); Mean Corpuscular Volume 92.5 fl (80-100); Mean Platelet Volume 9.7 fl (7.4-10.4); Monocytes Absolute Auto 0.7 K/mm3 (0.1-0.6); Neutrophils Absolute Auto 5.7 K/mm3 (1.3-6.7); Neutrophils Percent Auto 77.2 % (45.5-73.1); Platelet Count Result 454 k/mm3 (150-375); Red Blood Count 3.08 M/mm3 (4.2-5.4); Red Cell Distribution Width 17.4 % (11.5-14.5); White Blood Count 7.4 K/mm3 (4.5-10.0)
[2024-05-10 05:52] LABS: Anion Gap 5 mmol/L (4-12); Blood Urea Nitrogen 18 mg/dL (7-17); Calcium 8.1 mg/dL (8.4-10.2); Carbon Dioxide 25 mmol/L (22-30); Chloride 105 mmol/L (98-107); Estimated CRCL calculation 41 ml/min; Estimated Glomerular Filt Rate 52; Glucose 77 mg/dL (65-110); Sodium 135 mmol/L (137-145)
[2024-05-10 08:31] LABS: Glucose Point of Care 76 mg/dl (65-105)
[2024-05-10] MEDS: SERTRALINE HCL 50 MG TABLET 200 MG PO (09:01)
[2024-05-10] MEDS: polyethylene glycoL 3350 17 GM POWD.PACK PO (09:01)
[2024-05-10] MEDS: SPIRONOLACTONE 12.5 MG TABLET PO (09:02)
[2024-05-10] MEDS: ATORVASTATIN 20 MG TABLET PO (09:02)
[2024-05-10] MEDS: AMIODARONE HCL 200 MG TABLET PO (09:02)
[2024-05-10] MEDS: ASPIRIN 81 MG ENTERIC TABLET PO (09:02)
[2024-05-10] MEDS: MEMANTINE 10 MG TABLET PO ×2 (09:02→16:24)
[2024-05-10] MEDS: FERROUS SULFATE 325 MG TABLET DR BY MOUTH ×2 (09:02→16:24)
[2024-05-10] MEDS: ANASTROZOLE (*CHEMO) 1 MG TABLET PO (09:02)
[2024-05-10] MEDS: PANTOPRAZOLE SODIUM IV 40 MG VIAL IV PUSH ×2 (09:02→20:27)
[2024-05-10] MEDS: EMPAGLIFLOZIN 25 MG TABLET PO (09:02)
--- NOTE | 2024-05-10 09:16 | P.PNIM_ITS ---
Progress Note: A&P Assessment and Plan (1) Cardiac arrest: Code(s): I46.9 - Cardiac arrest, cause unspecified Status: Acute (2) Shock: Code(s): R57.9 - Shock, unspecified Status: Acute (3) Decubitus ulcer: Code(s): L89.90 - Pressure ulcer of unspecified site, unspecified stage Status: Acute (4) Electrolyte abnormality: Code(s): E87.8 - Other disorders of electrolyte and fluid balance, not elsewhere classified Status: Acute (5) Acute kidney injury: Code(s): N17.9 - Acute kidney failure, unspecified Status: Acute (6) Acute kidney injury superimposed on CKD: Code(s): N17.9 - Acute kidney failure, unspecified; N18.9 - Chronic kidney disease, unspecified Status: Acute (7) Essential (primary) hypertension: Code(s): I10 - Essential (primary) hypertension Status: Chronic (8) Acute hypoxemic respiratory failure: Code(s): J96.01 - Acute respiratory failure with hypoxia Status: Acute (9) Pneumonia: Qualifiers: Laterality: left Lung location: lower lobe of lung Pneumonia type: due to unspecified organism Qualified Code(s): J18.9 - Pneumonia, unspecified organism Code(s): J18.9 - Pneumonia, unspecified organism Status: Acute Plan Acute hypoxemic respiratory failure From pneumonia. Chest x-ray reviewed. Rocephin azithromycin. Blood and sputum culture MRSA positive Received Rocephin azithromycin IV since admission Changed to cefdinir and azithromycin p.o. per ID pharmacist recommendation . Pneumonia Chest x-ray reviewed, showed left basilar pneumonia Patient has productive cough and phlegm continue above. Symptomatic Anemia Hemoglobin 7.8 with thrombocytosis iron panel: Iron 26, saturation 15, suggesting iron deficient anemia FOBT pending, Patient on blood thinner, possible GI bleeding GI consulted. Monitor H&H. Hemoglobin 7.0 Transfuse 1 pack RBC, Hemoglobin is trending down slowly Guaiac is positive KURT on CPAP Continue CPAP. Paroxysmal atrial fibrillation hold Eliquis,possible GIB hb is tending down titrate rate control. CKD stage stable Stable creatinine, monitor COPD continue home bronchodilator Hypertension titrate home medications with clinical course. Type 2 diabetes Sliding scale insulin with Accu-Cheks adjust with clinical course. Systolic CHF, EF 20-25% on LifeVest Continue medications monitor DVT/PE risk of gib CKD stage 3 Creatinine stable DVT prophylaxis scd DNR Subjective Date/time seen: 05/10/24 09:16 Interval history: Patient is afebrile, blood pressure stable, Patient still has a cough with large amount phlegm. Patient shortness breath on exertion, appetite improving Hemoglobin is trending down. Exam Narrative: General: alert and comfortable Eyes: EOMI, PERRLA ENNT External ears normal, Neck is supple, no masses, Respiratory systems: Clear to auscultation Cardiovascular S1, S2, normal rhythm, no murmur, rub, or gallop; no thrill or palpable murmurs on palpation. Gastrointestinal: soft, non-tender, and non-distended abdomen with no masses; BS present Skin: no rash, lesions, ulcerations, subcutaneous nodules or induration Musculoskeletal: no abnormality and no tenderness, normal ROM Neurologic: Alert and oriented x3, non focal Mental Status Exam: normal affect Objective Data Vital Signs Vital Signs: Vital Signs - 24 hr 05/09/24 12:05 05/09/24 16:00 05/09/24 16:05 Temperature 97.1 F L Pulse Rate 71 100 94 Respiratory Rate 20 Blood Pressure 110/70 Pulse Oximetry 90 Oxygen Delivery Oxygen Flow Rate 05/09/24 20:00 05/09/24 20:00 05/09/24 20:25 Temperature 98.2 F Pulse Rate 93 89 Respiratory Rate 17 Blood Pressure 107/69 Pulse Oximetry 94 96 Oxygen Delivery Nasal Cannula Oxygen Flow Rate 2 05/10/24 00:00 05/10/24 04:00 05/10/24 04:58 Temperature 98.2 F Pulse Rate 68 76 77 Respiratory Rate 18 Blood Pressure 108/70 Pulse Oximetry 96 Oxygen Delivery Oxygen Flow Rate Intake/Output Intake/Output: Intake & Output 05/07/24 05/08/24 05/09/24 05/10/24 23:59 23:59 23:59 23:59 Intake Total 290 1900 270 50 Output Total 625 350 50 Balance 290 1275 -80 0 Meds/Results Medications: Active Medications Generic Name Dose Route Start Last Admin Trade Name Freq PRN Reason Stop Dose Admin Amiodarone HCl 200 mg 05/08/24 08:00 05/10/24 09:02 Amiodarone Hcl 200 Mg Tablet PO 200 mg DAILY@0800 KEATON Administration Anastrozole 1 mg 05/08/24 09:00 05/10/24 09:02 Anastrozole (*Chemo) 1 Mg Tablet PO 1 mg DAILY KEATON Administration Apixaban 5 mg 05/07/24 21:00 05/08/24 08:36 Apixaban 5 Mg Tablet PO 5 mg Q12HR KEATON Administration Aspirin 81 mg 05/08/24 09:00 05/10/24 09:02 Aspirin 81 Mg Enteric Tablet PO 81 mg QAM KEATON Administration Atorvastatin Calcium 20 mg 05/08/24 09:00 05/10/24 09:02 Atorvastatin 20 Mg Tablet PO 20 mg DAILY KEATON Administration Dextrose 12.5 gm 05/07/24 15:28 Dextrose 50% 25 Gm/50 Ml Syringe IV PUSH PRN PRN Hypoglycemia Protocol Donepezil HCl 10 mg 05/08/24 09:00 Donepezil Hcl 10 Mg Tablet BY MOUTH DAILY KEATON Empagliflozin 25 mg 05/08/24 09:00 05/10/24 09:02 Empagliflozin 25 Mg Tablet PO 25 mg DAILY KEATON Administration Ferrous Sulfate 325 mg 05/07/24 17:00 05/10/24 09:02 Ferrous Sulfate [address] BY MOUTH 325 mg BID KEATON Administration Glucagon 1 mg 05/07/24 15:28 Glucagon For Inj 1 Mg Vial IM PRN PRN Hypoglycemia Protocol Glucose 15 gm 05/07/24 15:28 Glucose Oral Gel 15 Gm Of Glucse In 37.5 Gm Tube PO PRN PRN Hypoglycemia Protocol Ceftriaxone Sodium 1 gm in 50 mls @ 100 mls/hr 05/08/24 09:00 05/10/24 08:58 Rocephin 1 Gm/Ns 50 Ml IVPB 100 mls/hr Q24H KEATON Administration Dextrose 1,000 mls @ 100 mls/hr 05/07/24 15:28 Dextrose 5% 1,000 Ml IVPB PRN PRN Hypoglycemia Protocol Vancomycin HCl 1,500 mg in 500 mls @ 250 mls/hr 05/09/24 23:00 05/09/24 21:59 Vancomycin 1,500 Mg/Ns 500 Ml IVPB 250 mls/hr Q36H KEATON Administration Insulin Aspart 2 - 5 units 05/07/24 17:00 05/10/24 09:12 Insulin Aspart (*Bkc) 100 Units/Ml SUB-Q Not Given TIDWM KEATON Protocol Insulin Aspart 1 - 2 units 05/07/24 21:00 05/09/24 21:59 Insulin Aspart (*Bkc) 100 Units/Ml SUB-Q Not Given HS [facility] Protocol Levothyroxine Sodium 112 mcg 05/08/24 06:30 05/10/24 05:23 Levothyroxine Sodium 112 Mcg Tablet PO 112 mcg DAILY@0630 KEATON Administration Memantine 10 mg 05/07/24 17:00 05/10/24 09:02 Memantine 10 Mg Tablet PO 10 mg BID KEATON Administration Pantoprazole Sodium 40 mg 05/09/24 21:00 05/10/24 09:02 Pantoprazole Sodium Iv 40 Mg Vial IV PUSH 40 mg Q12HR KEATON Administration Polyethylene Glycol 17 gm 05/08/24 16:30 05/10/24 09:01 Polyethylene Glycol 3350 17 Gm Powd.Pack PO 17 gm QAM KEATON Administration Sertraline HCl 200 mg 05/08/24 09:00 05/10/24 09:01 Sertraline Hcl 50 Mg Tablet PO 200 mg DAILY KEATON Administration Spironolactone 12.5 mg 05/08/24 09:00 05/10/24 09:02 Spironolactone 12.5 Mg Tablet PO 12.5 mg DAILY KEATON Administration Radiology Results: ITS Impressions Chest X-Ray 05/07/24 10:14 IMPRESSION: Left basilar atelectasis versus pneumonia. Highly suggestive pleural thickening in the left lung base laterally. Labs Labs: Laboratory Results - last 24 hr 05/09/24 05/09/24 05/09/24 09:11 11:14 16:23 WBC 7.8 RBC 3.20 L Hgb 9.2 L Hct 29.9 L MCV 93.4 MCH 28.8 MCHC 30.8 L RDW 17.7 H Plt Count 482 H MPV 9.9 Immature Gran % (Auto) 0.4 Neut % (Auto) 82.1 H Lymph % (Auto) 7.7 L [place] % (Auto) 7.5 Eos % (Auto) 1.9 Baso % (Auto) 0.4 Lymph # (Auto) 0.60 L [place] # (Auto) 0.6 Eos # (Auto) 0.2 Baso # (Auto) 0.0 Abs Immat Gran (auto) 0.03 Absolute Neuts (auto) 6.4 Absolute Nucleated RBC 0.000 Nucleated RBC % 0.0 Sodium 135 L Potassium 4.2 Chloride 103 Carbon Dioxide 27 Anion Gap 5 BUN 19 H Creatinine 1.24 H Estim Creat Clear Calc 35 Estimated GFR 42 L Glucose 91 POC Capillary Glucose 87 108 H Calcium 8.2 L 05/09/24 05/10/24 05/10/24 20:20 05:23 08:28 WBC 7.4 RBC 3.08 L Hgb 8.8 L Hct 28.5 L MCV 92.5 MCH 28.6 MCHC 30.9 L RDW 17.4 H Plt Count 454 H MPV 9.7 Immature Gran % (Auto) 0.4 Neut % (Auto) 77.2 H Lymph % (Auto) 9.6 L [place] % (Auto) 10.0 H Eos % (Auto) 2.4 Baso % (Auto) 0.4 Lymph # (Auto) 0.71 L [place] # (Auto) 0.7 H Eos # (Auto) 0.2 Baso # (Auto) 0.0 Abs Immat Gran (auto) 0.03 Absolute Neuts (auto) 5.7 Absolute Nucleated RBC 0.000 Nucleated RBC % 0.0 Sodium 135 L Potassium 4.0 Chloride 105 Carbon Dioxide 25 Anion Gap 5 BUN 18 H Creatinine 1.03 H Estim Creat Clear Calc 41 Estimated GFR 52 L Glucose 77 POC Capillary Glucose 87 76 Calcium 8.1 L
[2024-05-10 10:49] LABS: IFOB Positive Control Positive; Immunochemical Fecal Occult Bl Positive (N)
[2024-05-10 11:45] LABS: Glucose Point of Care 80 mg/dl (65-105)
[2024-05-10] MEDS: AZITHROMYCIN 250 MG TABLET 500 MG PO (13:18)
[2024-05-10 16:56] LABS: Glucose Point of Care 119 mg/dl (65-105)
--- NOTE | 2024-05-10 19:39 | PC.NURSE ---
On 05/10/24, the student, Olivia Tesfaye, provided care and completed [facility] documentation on this patient. I have reviewed the student's documentation and agree with the findings.
[2024-05-10 21:24] LABS: Glucose Point of Care 134 mg/dl (65-105)
[2024-05-11] VITALS (13 sets, daily range): BP systolic 94–103; BP diastolic 60–67; PULSE 61–114; RESP 16–23; TEMP 36.5–37.1; O2SAT 91–98
[2024-05-11] MEDS: LEVOTHYROXINE SODIUM 112 MCG TABLET PO (05:47)
[2024-05-11 08:34] LABS: Basophils Percent Auto 0.5 % (0.2-1.2); Eosinophils Absolute Auto 0.2 K/mm3 (0-0.3); Eosinophils Percent Auto 2.5 % (0-4.4); Hematocrit 28.2 % (37.0-47.0); Hemoglobin 8.6 g/dL (12.0-15.0); Immature Granulocyte Absolute 0.03 K/mm3 (0.00-0.031); Immature Granulocyte Percent A 0.5 % (0-0.5); Lymphocytes Absolute Auto 0.62 K/mm3 (0.9-3.2); Lymphocytes Percent Auto 10.2 % (18.3-44.2); Mean Corpuscular HGB Conc 30.5 g/dl (32-36); Mean Corpuscular Hemoglobin 28.4 pg (26-34); Mean Corpuscular Volume 93.1 fl (80-100); Mean Platelet Volume 9.7 fl (7.4-10.4); Monocytes Absolute Auto 0.8 K/mm3 (0.1-0.6); Monocytes Percent Auto 12.6 % (2.6-8.5); Neutrophils Absolute Auto 4.5 K/mm3 (1.3-6.7); Neutrophils Percent Auto 73.7 % (45.5-73.1); Platelet Count Result 430 k/mm3 (150-375); Red Blood Count 3.03 M/mm3 (4.2-5.4); White Blood Count 6.1 K/mm3 (4.5-10.0)
[2024-05-11 08:37] LABS: Anion Gap 2 mmol/L (4-12); Blood Urea Nitrogen 16 mg/dL (7-17); Calcium 8.2 mg/dL (8.4-10.2); Carbon Dioxide 28 mmol/L (22-30); Chloride 105 mmol/L (98-107); Estimated CRCL calculation 37 ml/min; Estimated Glomerular Filt Rate 45; Glucose 84 mg/dL (65-110); Potassium 4.4 mmol/L (3.4-5.0); Sodium 135 mmol/L (137-145)
[2024-05-11 08:53] LABS: Glucose Point of Care 90 mg/dl (65-105)
[2024-05-11] MEDS: PANTOPRAZOLE SODIUM IV 40 MG VIAL IV PUSH ×2 (09:01→20:42)
[2024-05-11] MEDS: polyethylene glycoL 3350 17 GM POWD.PACK PO (09:01)
[2024-05-11] MEDS: SPIRONOLACTONE 12.5 MG TABLET PO (09:02)
[2024-05-11] MEDS: AMIODARONE HCL 200 MG TABLET PO (09:02)
[2024-05-11] MEDS: AZITHROMYCIN 250 MG TABLET 500 MG PO (09:02)
[2024-05-11] MEDS: CEFDINIR 300 MG CAPSULE PO ×2 (09:02→20:42)
[2024-05-11] MEDS: MEMANTINE 10 MG TABLET PO ×2 (09:03→17:06)
[2024-05-11] MEDS: ANASTROZOLE (*CHEMO) 1 MG TABLET PO (09:03)
[2024-05-11] MEDS: SERTRALINE HCL 50 MG TABLET 200 MG PO (09:03)
[2024-05-11] MEDS: ASPIRIN 81 MG ENTERIC TABLET PO (09:03)
[2024-05-11] MEDS: FERROUS SULFATE 325 MG TABLET DR BY MOUTH ×2 (09:03→17:06)
[2024-05-11] MEDS: LINEZOLID 600 MG TABLET PO ×2 (09:03→20:42)
[2024-05-11] MEDS: EMPAGLIFLOZIN 25 MG TABLET PO (09:03)
[2024-05-11] MEDS: ATORVASTATIN 20 MG TABLET PO (09:03)
--- NOTE | 2024-05-11 10:12 | P.PNIM_ITS ---
Progress Note: A&P Assessment and Plan (1) Cardiac arrest: Code(s): I46.9 - Cardiac arrest, cause unspecified Status: Acute (2) Shock: Code(s): R57.9 - Shock, unspecified Status: Acute (3) Decubitus ulcer: Code(s): L89.90 - Pressure ulcer of unspecified site, unspecified stage Status: Acute (4) Electrolyte abnormality: Code(s): E87.8 - Other disorders of electrolyte and fluid balance, not elsewhere classified Status: Acute (5) Acute kidney injury: Code(s): N17.9 - Acute kidney failure, unspecified Status: Acute (6) Acute kidney injury superimposed on CKD: Code(s): N17.9 - Acute kidney failure, unspecified; N18.9 - Chronic kidney disease, unspecified Status: Acute (7) Essential (primary) hypertension: Code(s): I10 - Essential (primary) hypertension Status: Chronic (8) Acute hypoxemic respiratory failure: Code(s): J96.01 - Acute respiratory failure with hypoxia Status: Acute (9) Pneumonia: Qualifiers: Laterality: left Lung location: lower lobe of lung Pneumonia type: due to unspecified organism Qualified Code(s): J18.9 - Pneumonia, unspecified organism Code(s): J18.9 - Pneumonia, unspecified organism Status: Acute Plan Acute hypoxemic respiratory failure From pneumonia. Chest x-ray reviewed. Rocephin azithromycin. Blood and sputum culture MRSA positive Received Rocephin azithromycin IV since admission Changed to cefdinir and azithromycin p.o. per ID pharmacist recommendation Acute on chronic Systolic CHF, EF 20-25% on LifeVest Home medication medications: Jardiance 25 mg daily p.o., furosemide 20 mg b.i.d. p.o., spironolactone 12.5 mg daily p.o. Acute systolic heart failure provide furosemide 40 mg IV push once Elevated BNP and chest x-ray 05/11: Airspace opacity in right mid and upper lobe zone and left mid and lower low zone with interval worsening, consistent with pulmonary edema and pneumonia Start Lasix 20 mg b.i.d. IV push Consult candy depositing machine operator for evaluation treatment Pneumonia Chest x-ray reviewed, showed left basilar pneumonia Patient has productive cough and phlegm Antibiotics see above Possible fluid overloaded Provide Lasix 40 mg IV push once Symptomatic Anemia Hemoglobin 7.8 with thrombocytosis iron panel: Iron 26, saturation 15, suggesting iron deficient anemia FOBT pending, Patient on blood thinner, possible GI bleeding GI consulted. Monitor H&H. Hemoglobin 7.0 Transfuse 1 pack RBC, Hemoglobin is trending down slowly Guaiac is positive KURT on CPAP Continue CPAP. Paroxysmal atrial fibrillation hold Eliquis,possible GIB hb is tending down titrate rate control. CKD stage stable Stable creatinine, monitor COPD continue home bronchodilator Hypertension titrate home medications with clinical course. Type 2 diabetes Sliding scale insulin with Accu-Cheks adjust with clinical course. DVT/PE risk of gib CKD stage 3 Creatinine stable DVT prophylaxis scd DNR Subjective Date/time seen: 05/11/24 10:12 Interval history: Patient is afebrile, blood pressure stable, Patient has cough with large white phlegm, shortness breath on exertion, appetite improving Hemoglobin is trending down. Exam Narrative: GENERAL: Frail, in no acute distress. Well-nourished. - EYES: EOMI. Anicteric. - HENT: Moist mucous membranes. - LUNGS: Crackles bilateral base - CARDIOVASCULAR: Regular rate and rhyth m. No murmur. No JVD. - ABDOMEN: Soft, non-tender and non-dist ended. No palpable masses. - EXTREMITIES: No edema. Peripheral puls es 2+. Non-tender. - NEUROLOGIC: No focal neurological defi cits. CN II-XII grossly intact. - PSYCHIATRIC: Awake, Alert and oriented x 3. Appropriate mood and affect. - SKIN: No rashes or lesions. Warm. - LYMPH: No cervical lymphadenopathy. Objective Data Vital Signs Vital Signs: Vital Signs - 24 hr 05/10/24 12:05 05/10/24 14:31 05/10/24 16:04 Temperature Pulse Rate 72 77 Respiratory Rate Blood Pressure Pulse Oximetry 94 Oxygen Delivery Nasal Cannula Oxygen Flow Rate 2 Fraction of Inspired Oxygen 05/10/24 16:30 05/10/24 19:46 05/10/24 20:00 Temperature 97.6 F Pulse Rate 75 78 Respiratory Rate 18 18 Blood Pressure 98/62 L 102/71 Pulse Oximetry 96 90 94 Oxygen Delivery Nasal Cannula Oxygen Flow Rate 2 Fraction of Inspired Oxygen 05/10/24 20:00 05/10/24 23:15 05/11/24 00:00 Temperature Pulse Rate 70 74 Respiratory Rate Blood Pressure Pulse Oximetry 95 Oxygen Delivery Nasal Cannula Oxygen Flow Rate 2 Fraction of Inspired Oxygen 28 05/11/24 04:00 05/11/24 05:42 05/11/24 09:02 Temperature 97.7 F Pulse Rate 81 70 67 Respiratory Rate 16 Blood Pressure 102/60 Pulse Oximetry 98 Oxygen Delivery Oxygen Flow Rate Fraction of Inspired Oxygen Intake/Output Intake/Output: Intake & Output 05/08/24 05/09/24 05/10/24 05/11/24 23:59 23:59 23:59 23:59 Intake Total 1900 270 940 Output Total 625 350 250 Balance 1275 -80 690 Meds/Results Medications: Active Medications Generic Name Dose Route Start Last Admin Trade Name Freq PRN Reason Stop Dose Admin Amiodarone HCl 200 mg 05/08/24 08:00 05/11/24 09:02 Amiodarone Hcl 200 Mg Tablet PO 200 mg DAILY@0800 KEATON Administration Anastrozole 1 mg 05/08/24 09:00 05/11/24 09:03 Anastrozole (*Chemo) 1 Mg Tablet PO 1 mg DAILY KEATON Administration Apixaban 5 mg 05/07/24 21:00 05/08/24 08:36 Apixaban 5 Mg Tablet PO 5 mg Q12HR KEATON Administration Aspirin 81 mg 05/08/24 09:00 05/11/24 09:03 Aspirin 81 Mg Enteric Tablet PO 81 mg QAM KEATON Administration Atorvastatin Calcium 20 mg 05/08/24 09:00 05/11/24 09:03 Atorvastatin 20 Mg Tablet PO 20 mg DAILY [facility] Administration Azithromycin 500 mg 05/10/24 11:55 05/11/24 09:02 Azithromycin 250 Mg Tablet PO 05/12/24 09:01 500 mg DAILY [facility]ON Administration Cefdinir 300 mg 05/11/24 09:00 05/11/24 09:02 Cefdinir 300 Mg Capsule PO 05/13/24 21:01 300 mg Q12HR KEATON Administration Dextrose 12.5 gm 05/07/24 15:28 Dextrose 50% 25 Gm/50 Ml Syringe IV PUSH PRN PRN Hypoglycemia Protocol Donepezil HCl 10 mg 05/08/24 09:00 Donepezil Hcl 10 Mg Tablet BY MOUTH DAILY KEATON Empagliflozin 25 mg 05/08/24 09:00 05/11/24 09:03 Empagliflozin 25 Mg Tablet PO 25 mg DAILY KEATON Administration Ferrous Sulfate 325 mg 05/07/24 17:00 05/11/24 09:03 Ferrous Sulfate [address] BY MOUTH 325 mg BID KEATON Administration Glucagon 1 mg 05/07/24 15:28 Glucagon For Inj 1 Mg Vial IM PRN PRN Hypoglycemia Protocol Glucose 15 gm 05/07/24 15:28 Glucose Oral Gel 15 Gm Of Glucse In 37.5 Gm Tube PO PRN PRN Hypoglycemia Protocol Dextrose 1,000 mls @ 100 mls/hr 05/07/24 15:28 Dextrose 5% 1,000 Ml IVPB PRN PRN Hypoglycemia Protocol Insulin Aspart 2 - 5 units 05/07/24 17:00 05/11/24 09:05 Insulin Aspart (*Bkc) 100 Units/Ml SUB-Q Not Given TIDWM [facility] Protocol Insulin Aspart 1 - 2 units 05/07/24 21:00 05/10/24 20:31 Insulin Aspart (*Bkc) 100 Units/Ml SUB-Q Not Given HS [facility] Protocol Levothyroxine Sodium 112 mcg 05/08/24 06:30 05/11/24 05:47 Levothyroxine Sodium 112 Mcg Tablet PO 112 mcg DAILY@0630 [facility] Administration Linezolid 600 mg 05/11/24 09:00 05/11/24 09:03 Linezolid 600 Mg Tablet PO 05/14/24 21:01 600 mg Q12HR [facility] Administration Memantine 10 mg 05/07/24 17:00 05/11/24 09:03 Memantine 10 Mg Tablet PO 10 mg BID KEATON Administration Pantoprazole Sodium 40 mg 05/09/24 21:00 05/11/24 09:01 Pantoprazole Sodium Iv 40 Mg Vial IV PUSH 40 mg Q12HR [facility]ATON Administration Polyethylene Glycol 17 gm 05/08/24 16:30 05/11/24 09:01 Polyethylene Glycol 3350 17 Gm Powd.Pack PO 17 gm QAM KE[facility]ON Administration Sertraline HCl 200 mg 05/08/24 09:00 05/11/24 09:03 Sertraline Hcl 50 Mg Tablet PO 200 mg DAILY [facility]ON Administration Spironolactone 12.5 mg 05/08/24 09:00 05/11/24 09:02 Spironolactone 12.5 Mg Tablet PO 12.5 mg DAILY KEATON Administration Radiology Results: ITS Impressions Chest X-Ray 05/07/24 10:14 IMPRESSION: Left basilar atelectasis versus pneumonia. Highly suggestive pleural thickening in the left lung base laterally. Labs Labs: Laboratory Results - last 24 hr 05/10/24 05/10/24 05/10/24 10:22 11:40 16:50 WBC RBC Hgb Hct MCV MCH MCHC RDW Plt Count MPV Immature Gran % (Auto) Neut % (Auto) Lymph % (Auto) [place] % (Auto) Eos % (Auto) Baso % (Auto) Lymph # (Auto) [place] # (Auto) Eos # (Auto) Baso # (Auto) Abs Immat Gran (auto) Absolute Neuts (auto) Absolute Nucleated RBC Nucleated RBC % Sodium Potassium Chloride Carbon Dioxide Anion Gap BUN Creatinine Estim Creat Clear Calc Estimated GFR Glucose POC Capillary Glucose 80 119 H Calcium Stl Occult Blood (IFOB) Positive H 05/10/24 05/11/24 05/11/24 19:42 08:22 08:51 WBC 6.1 RBC 3.03 L Hgb 8.6 L Hct 28.2 L MCV 93.1 MCH 28.4 MCHC 30.5 L RDW 17.0 H Plt Count 430 H MPV 9.7 Immature Gran % (Auto) 0.5 Neut % (Auto) 73.7 H Lymph % (Auto) 10.2 L [place] % (Auto) 12.6 H Eos % (Auto) 2.5 Baso % (Auto) 0.5 Lymph # (Auto) 0.62 L [place] # (Auto) 0.8 H Eos # (Auto) 0.2 Baso # (Auto) 0.0 Abs Immat Gran (auto) 0.03 Absolute Neuts (auto) 4.5 Absolute Nucleated RBC 0.000 Nucleated RBC % 0.0 Sodium 135 L Potassium 4.4 Chloride 105 Carbon Dioxide 28 Anion Gap 2 L BUN 16 Creatinine 1.17 H Estim Creat Clear Calc 37 Estimated GFR 45 L Glucose 84 POC Capillary Glucose 134 H 90 Calcium 8.2 L Stl Occult Blood (IFOB)
[2024-05-11 11:30] LABS: NT Pro B Type Natriuretic Pept 2140 pg/mL (19.9-100)
[2024-05-11 12:31] LABS: Glucose Point of Care 83 mg/dl (65-105)
[2024-05-11] MEDS: FUROSEMIDE INJ 40 MG/4 ML VIAL IV PUSH (13:07)
[2024-05-11] MEDS: FUROSEMIDE 20 MG TABLET PO (17:06)
[2024-05-11 17:31] LABS: Glucose Point of Care 106 mg/dl (65-105)
[2024-05-11] MEDS: FUROSEMIDE INJ 40 MG/4 ML VIAL 20 MG IV PUSH (19:32)
[2024-05-11 23:57] LABS: Glucose Point of Care 92 mg/dl (65-105)
[2024-05-12] VITALS (12 sets, daily range): BP systolic 98–103; BP diastolic 54–67; PULSE 67–97; RESP 10–18; TEMP 36.4–36.8; O2SAT 94–97
[2024-05-12] MEDS: LEVOTHYROXINE SODIUM 112 MCG TABLET PO (05:37)
[2024-05-12] MEDS: FUROSEMIDE INJ 40 MG/4 ML VIAL 20 MG IV PUSH ×2 (08:53→18:05)
[2024-05-12] MEDS: polyethylene glycoL 3350 17 GM POWD.PACK PO (08:53)
[2024-05-12] MEDS: PANTOPRAZOLE SODIUM IV 40 MG VIAL IV PUSH ×2 (08:53→20:27)
[2024-05-12] MEDS: LINEZOLID 600 MG TABLET PO ×2 (08:55→20:26)
[2024-05-12] MEDS: AZITHROMYCIN 250 MG TABLET 500 MG PO (08:55)
[2024-05-12] MEDS: SERTRALINE HCL 50 MG TABLET 200 MG PO (08:55)
[2024-05-12] MEDS: CEFDINIR 300 MG CAPSULE PO ×2 (08:55→20:25)
[2024-05-12 08:56] LABS: Glucose Point of Care 83 mg/dl (65-105)
[2024-05-12] MEDS: ANASTROZOLE (*CHEMO) 1 MG TABLET PO (08:56)
[2024-05-12] MEDS: POTASSIUM CHLORIDE 20 MEQ ER TABLET PO (08:56)
[2024-05-12] MEDS: ASPIRIN 81 MG ENTERIC TABLET PO (08:56)
[2024-05-12] MEDS: AMIODARONE HCL 200 MG TABLET PO (08:56)
[2024-05-12] MEDS: FERROUS SULFATE 325 MG TABLET DR BY MOUTH ×2 (08:56→18:04)
[2024-05-12] MEDS: MEMANTINE 10 MG TABLET PO ×2 (08:56→18:04)
[2024-05-12] MEDS: EMPAGLIFLOZIN 25 MG TABLET PO (08:56)
[2024-05-12] MEDS: ATORVASTATIN 20 MG TABLET PO (08:56)
[2024-05-12] MEDS: SPIRONOLACTONE 12.5 MG TABLET PO (08:56)
--- NOTE | 2024-05-12 09:46 | P.PNIM_ITS ---
Progress Note: A&P Assessment and Plan (1) Cardiac arrest: Code(s): I46.9 - Cardiac arrest, cause unspecified Status: Acute (2) Shock: Code(s): R57.9 - Shock, unspecified Status: Acute (3) Decubitus ulcer: Code(s): L89.90 - Pressure ulcer of unspecified site, unspecified stage Status: Acute (4) Electrolyte abnormality: Code(s): E87.8 - Other disorders of electrolyte and fluid balance, not elsewhere classified Status: Acute (5) Acute kidney injury: Code(s): N17.9 - Acute kidney failure, unspecified Status: Acute (6) Acute kidney injury superimposed on CKD: Code(s): N17.9 - Acute kidney failure, unspecified; N18.9 - Chronic kidney disease, unspecified Status: Acute (7) Essential (primary) hypertension: Code(s): I10 - Essential (primary) hypertension Status: Chronic (8) Acute hypoxemic respiratory failure: Code(s): J96.01 - Acute respiratory failure with hypoxia Status: Acute (9) Pneumonia: Qualifiers: Laterality: left Lung location: lower lobe of lung Pneumonia type: due to unspecified organism Qualified Code(s): J18.9 - Pneumonia, unspecified organism Code(s): J18.9 - Pneumonia, unspecified organism Status: Acute Plan Acute hypoxemic respiratory failure From pneumonia. Chest x-ray reviewed. Rocephin azithromycin. Blood and sputum culture MRSA positive Received Rocephin azithromycin IV since admission Changed to cefdinir and azithromycin p.o. per ID pharmacist recommendation Acute on chronic Systolic CHF, EF 20-25% on LifeVest Home medication medications: Jardiance 25 mg daily p.o., furosemide 20 mg b.i.d. p.o., spironolactone 12.5 mg daily p.o. Acute systolic heart failure provide furosemide 40 mg IV push once 05/11 Elevated BNP and chest x-ray 05/11: Airspace opacity in right mid and upper lobe zone and left mid and lower low zone with interval worsening, consistent with pulmonary edema and pneumonia Start Lasix 20 mg b.i.d. IV push 05/11 Consult customs compliance director for evaluation treatment Patient feels better today, cough improving, dyspnea is improving, continue IV Lasix 20 mg b.i.d. IV push Pneumonia Chest x-ray reviewed, showed left basilar pneumonia Patient has productive cough and phlegm Antibiotics see above Possible fluid overloaded Provide Lasix 40 mg IV push once 05/11 Symptomatic Anemia Hemoglobin 7.8 with thrombocytosis iron panel: Iron 26, saturation 15, suggesting iron deficient anemia FOBT pending, Patient on blood thinner, possible GI bleeding GI consulted. Monitor H&H. Hemoglobin 7.0 Transfuse 1 pack RBC, Hemoglobin is trending down slowly Guaiac is positive KURT on CPAP Continue CPAP. Paroxysmal atrial fibrillation hold Eliquis,possible GIB hb is tending down titrate rate control. CKD stage stable Creatinine trending up slightly Continue monitor BMP daily during IV diuretic medication COPD continue home bronchodilator Hypertension titrate home medications with clinical course. Type 2 diabetes Sliding scale insulin with Accu-Cheks adjust with clinical course. DVT/PE risk of gib CKD stage 3 Creatinine stable DVT prophylaxis scd DNR Subjective Date/time seen: 05/12/24 09:46 Interval history: Patient is afebrile, blood pressure stable, Patient feels better today, patient has a moderate cough, with a scant phlegm. Patient afebrile blood pressure stable, Dyspnea is improving, labs reviewed, creatinine is trending up, Exam Narrative: GENERAL: Frail, in no acute distress. Well-nourished. - EYES: EOMI. Anicteric. - HENT: Moist mucous membranes. - LUNGS: Crackles bilateral base, impro ves - CARDIOVASCULAR: Regular rate and rhyth m. No murmur. No JVD. - ABDOMEN: Soft, non-tender and non-dist ended. No palpable masses. - EXTREMITIES: No edema. Peripheral puls es 2+. Non-tender. - NEUROLOGIC: No focal neurological defi cits. CN II-XII grossly intact. - PSYCHIATRIC: Awake, Alert and oriented x 3. Appropriate mood and affect. - SKIN: No rashes or lesions. Warm. - LYMPH: No cervical lymphadenopathy. Objective Data Vital Signs Vital Signs: Vital Signs - 24 hr 05/11/24 12:00 05/11/24 14:00 05/11/24 14:15 Temperature 97.9 F Pulse Rate 86 95 Respiratory Rate 18 Blood Pressure 103/67 Pulse Oximetry 98 Oxygen Delivery Nasal Cannula Oxygen Flow Rate 3 05/11/24 14:26 05/11/24 16:00 05/11/24 20:00 Temperature Pulse Rate 114 H Respiratory Rate Blood Pressure Pulse Oximetry 93 Oxygen Delivery Nasal Cannula Nasal Cannula Oxygen Flow Rate 3 2 05/11/24 20:00 05/11/24 20:13 05/11/24 23:50 Temperature 98.8 F Pulse Rate 105 H 105 H 105 H Respiratory Rate 18 23 H Blood Pressure 94/63 L Pulse Oximetry 93 93 Oxygen Delivery Autopap Oxygen Flow Rate 05/12/24 00:00 05/12/24 01:00 05/12/24 04:00 Temperature Pulse Rate 97 77 Respiratory Rate 10 L Blood Pressure Pulse Oximetry Oxygen Delivery Autopap Oxygen Flow Rate 05/12/24 05:33 05/12/24 08:56 Temperature 97.6 F Pulse Rate 70 69 Respiratory Rate 18 Blood Pressure 103/67 Pulse Oximetry 94 Oxygen Delivery Oxygen Flow Rate Intake/Output Intake/Output: Intake & Output 05/09/24 05/10/24 05/11/24 05/12/24 23:59 23:59 23:59 23:59 Intake Total 270 940 120 250 Output Total 350 250 700 500 Balance -80 690 -580 -250 Meds/Results Medications: Active Medications Generic Name Dose Route Start Last Admin Trade Name Freq PRN Reason Stop Dose Admin Amiodarone HCl 200 mg 05/08/24 08:00 05/12/24 08:56 Amiodarone Hcl 200 Mg Tablet PO 200 mg DAILY@0800 KEATON Administration Anastrozole 1 mg 05/08/24 09:00 05/12/24 08:56 Anastrozole (*Chemo) 1 Mg Tablet PO 1 mg DAILY [facility]ON Administration Apixaban 5 mg 05/07/24 21:00 05/08/24 08:36 Apixaban 5 Mg Tablet PO 5 mg Q12HR [facility]ON Administration Aspirin 81 mg 05/08/24 09:00 05/12/24 08:56 Aspirin 81 Mg Enteric Tablet PO 81 mg QAM [facility] Administration Atorvastatin Calcium 20 mg 05/08/24 09:00 05/12/24 08:56 Atorvastatin 20 Mg Tablet PO 20 mg DAILY [facility] Administration Cefdinir 300 mg 05/11/24 09:00 05/12/24 08:55 Cefdinir 300 Mg Capsule PO 05/13/24 21:01 300 mg Q12HR [facility]ON Administration Dextrose 12.5 gm 05/07/24 15:28 Dextrose 50% 25 Gm/50 Ml Syringe IV PUSH PRN PRN Hypoglycemia Protocol Donepezil HCl 10 mg 05/08/24 09:00 Donepezil Hcl 10 Mg Tablet BY MOUTH DAILY [facility] Empagliflozin 25 mg 05/08/24 09:00 05/12/24 08:56 Empagliflozin 25 Mg Tablet PO 25 mg DAILY [facility] Administration Ferrous Sulfate 325 mg 05/07/24 17:00 05/12/24 08:56 Ferrous Sulfate [address] BY MOUTH 325 mg BID KE[facility]ON Administration Furosemide 20 mg 05/11/24 18:25 05/12/24 08:53 Furosemide Inj 40 Mg/4 Ml Vial IV PUSH 20 mg BID [facility]ON Administration Glucagon 1 mg 05/07/24 15:28 Glucagon For Inj 1 Mg Vial IM PRN PRN Hypoglycemia Protocol Glucose 15 gm 05/07/24 15:28 Glucose Oral Gel 15 Gm Of Glucse In 37.5 Gm Tube PO PRN PRN Hypoglycemia Protocol Dextrose 1,000 mls @ 100 mls/hr 05/07/24 15:28 Dextrose 5% 1,000 Ml IVPB PRN PRN Hypoglycemia Protocol Insulin Aspart 2 - 5 units 05/07/24 17:00 05/12/24 09:03 Insulin Aspart (*Bkc) 100 Units/Ml SUB-Q Not Given TIDWM [facility] Protocol Insulin Aspart 1 - 2 units 05/07/24 21:00 05/11/24 20:46 Insulin Aspart (*Bkc) 100 Units/Ml SUB-Q Not Given HS [facility] Protocol Levothyroxine Sodium 112 mcg 05/08/24 06:30 05/12/24 05:37 Levothyroxine Sodium 112 Mcg Tablet PO 112 mcg DAILY@0630 [facility]ATON Administration Linezolid 600 mg 05/11/24 09:00 05/12/24 08:55 Linezolid 600 Mg Tablet PO 05/14/24 21:01 600 mg Q12HR [facility] Administration Memantine 10 mg 05/07/24 17:00 05/12/24 08:56 Memantine 10 Mg Tablet PO 10 mg BID [facility] Administration Pantoprazole Sodium 40 mg 05/09/24 21:00 05/12/24 08:53 Pantoprazole Sodium Iv 40 Mg Vial IV PUSH 40 mg Q12HR [facility] Administration Polyethylene Glycol 17 gm 05/08/24 16:30 05/12/24 08:53 Polyethylene Glycol 3350 17 Gm Powd.Pack PO 17 gm QAM [facility] Administration Potassium Chloride 20 meq 05/12/24 09:00 05/12/24 08:56 Potassium Chloride 20 Meq Er Tablet PO 20 meq DAILY [facility] Administration Sertraline HCl 200 mg 05/08/24 09:00 05/12/24 08:55 Sertraline Hcl 50 Mg Tablet PO 200 mg DAILY [facility] Administration Spironolactone 12.5 mg 05/08/24 09:00 05/12/24 08:56 Spironolactone 12.5 Mg Tablet PO 12.5 mg DAILY [facility]ON Administration Radiology Results: ITS Impressions Chest X-Ray 05/11/24 12:15 IMPRESSION: 1. Airspace opacities in right mid and upper lung zones and left mid and lower lung zones with interval worsening, consistent with pulmonary edema versus pneumonia. 2. Cardiomegaly. Labs Labs: Laboratory Results - last 24 hr 05/11/24 05/11/24 05/11/24 08:13 12:26 17:19 POC Capillary Glucose 83 106 H NT-Pro-B Natriuret Pep 2140 H 05/11/24 05/12/24 20:18 08:23 POC Capillary Glucose 92 83 NT-Pro-B Natriuret Pep
[2024-05-12 10:48] LABS: Anion Gap 7 mmol/L (4-12); Blood Urea Nitrogen 20 mg/dL (7-17); Calcium 8.4 mg/dL (8.4-10.2); Carbon Dioxide 29 mmol/L (22-30); Chloride 99 mmol/L (98-107); Estimated CRCL calculation 29 ml/min; Estimated Glomerular Filt Rate 34; Glucose 87 mg/dL (65-110); Magnesium 1.9 mg/dL (1.6-2.3); Phosphorus 3.4 mg/dL (2.5-4.5); Potassium 3.4 mmol/L (3.4-5.0); Sodium 135 mmol/L (137-145)
[2024-05-12 12:14] LABS: Glucose Point of Care 141 mg/dl (65-105)
[2024-05-12 16:45] LABS: Glucose Point of Care 141 mg/dl (65-105)
[2024-05-12 23:15] LABS: Glucose Point of Care 164 mg/dl (65-105)
[2024-05-13] VITALS (11 sets, daily range): BP systolic 98–102; BP diastolic 54–59; PULSE 76–100; RESP 16–21; TEMP 36.2–36.9; O2SAT 91–96
[2024-05-13] MEDS: LEVOTHYROXINE SODIUM 112 MCG TABLET PO (05:42)
[2024-05-13 05:56] LABS: Anion Gap 5 mmol/L (4-12); Blood Urea Nitrogen 23 mg/dL (7-17); Calcium 8.2 mg/dL (8.4-10.2); Carbon Dioxide 30 mmol/L (22-30); Chloride 100 mmol/L (98-107); Estimated CRCL calculation 27 ml/min; Estimated Glomerular Filt Rate 31; Glucose 106 mg/dL (65-110); Magnesium 1.8 mg/dL (1.6-2.3); Potassium 3.2 mmol/L (3.4-5.0); Sodium 135 mmol/L (137-145)
[2024-05-13 08:46] LABS: Glucose Point of Care 102 mg/dl (65-105)
[2024-05-13] MEDS: polyethylene glycoL 3350 17 GM POWD.PACK PO (08:46)
[2024-05-13] MEDS: SERTRALINE HCL 50 MG TABLET 200 MG PO (08:47)
[2024-05-13] MEDS: ASPIRIN 81 MG ENTERIC TABLET PO (08:47)
[2024-05-13] MEDS: AMIODARONE HCL 200 MG TABLET PO (08:48)
[2024-05-13] MEDS: SPIRONOLACTONE 12.5 MG TABLET PO (08:48)
[2024-05-13] MEDS: FERROUS SULFATE 325 MG TABLET DR BY MOUTH ×2 (08:48→17:46)
[2024-05-13] MEDS: POTASSIUM CHLORIDE 20 MEQ ER TABLET PO (08:48)
[2024-05-13] MEDS: CEFDINIR 300 MG CAPSULE PO ×2 (08:48→20:03)
[2024-05-13] MEDS: EMPAGLIFLOZIN 25 MG TABLET PO (08:48)
[2024-05-13] MEDS: ATORVASTATIN 20 MG TABLET PO (08:48)
[2024-05-13] MEDS: MEMANTINE 10 MG TABLET PO ×2 (08:48→17:46)
[2024-05-13] MEDS: LINEZOLID 600 MG TABLET PO ×2 (08:48→20:03)
[2024-05-13] MEDS: FUROSEMIDE INJ 40 MG/4 ML VIAL 20 MG IV PUSH ×2 (08:49→17:46)
[2024-05-13] MEDS: PANTOPRAZOLE SODIUM IV 40 MG VIAL IV PUSH ×2 (08:49→20:02)
[2024-05-13] MEDS: ANASTROZOLE (*CHEMO) 1 MG TABLET PO (08:49)
--- NOTE | 2024-05-13 11:38 | PM.IMPN ---
Progress Note: A&P Assessment and Plan (1) Cardiac arrest: Code(s): I46.9 - Cardiac arrest, cause unspecified Status: Acute (2) Shock: Code(s): R57.9 - Shock, unspecified Status: Acute (3) Decubitus ulcer: Code(s): L89.90 - Pressure ulcer of unspecified site, unspecified stage Status: Acute (4) Electrolyte abnormality: Code(s): E87.8 - Other disorders of electrolyte and fluid balance, not elsewhere classified Status: Acute (5) Acute kidney injury: Code(s): N17.9 - Acute kidney failure, unspecified Status: Acute (6) Acute kidney injury superimposed on CKD: Code(s): N17.9 - Acute kidney failure, unspecified; N18.9 - Chronic kidney disease, unspecified Status: Acute (7) Essential (primary) hypertension: Code(s): I10 - Essential (primary) hypertension Status: Chronic (8) Acute hypoxemic respiratory failure: Code(s): J96.01 - Acute respiratory failure with hypoxia Status: Acute (9) Pneumonia: Qualifiers: Laterality: left Lung location: lower lobe of lung Pneumonia type: due to unspecified organism Qualified Code(s): J18.9 - Pneumonia, unspecified organism Code(s): J18.9 - Pneumonia, unspecified organism Status: Acute Plan Acute hypoxemic respiratory failure From pneumonia. Chest x-ray reviewed. Rocephin azithromycin. Blood and sputum culture MRSA positive Received Rocephin azithromycin IV since admission Changed to cefdinir and azithromycin p.o. per ID pharmacist recommendation Acute on chronic Systolic CHF, EF 20-25% on LifeVest Home medication medications: Jardiance 25 mg daily p.o., furosemide 20 mg b.i.d. p.o., spironolactone 12.5 mg daily p.o. Acute systolic heart failure provide furosemide 40 mg IV push once 05/11 Elevated BNP and chest x-ray 05/11: Airspace opacity in right mid and upper lobe zone and left mid and lower low zone with interval worsening, consistent with pulmonary edema and pneumonia Start Lasix 20 mg b.i.d. IV push 05/11 Consult core rescuer for evaluation treatment Patient feels better today, cough improving, dyspnea is improving continue IV Lasix 20 mg b.i.d. IV push Pneumonia Chest x-ray reviewed, showed left basilar pneumonia Patient has productive cough and phlegm Finish antibiotics on 05/13 Antibiotics see above Symptomatic Anemia Hemoglobin 7.8 with thrombocytosis iron panel: Iron 26, saturation 15, suggesting iron deficient anemia FOBT pending, Patient on blood thinner, possible GI bleeding GI consulted. Monitor H&H. Hemoglobin 7.0 Transfuse 1 pack RBC, Hemoglobin is trending down slowly Guaiac is positive KURT on CPAP Continue CPAP. Paroxysmal atrial fibrillation hold Eliquis,possible GIB hb is tending down titrate rate control. CKD stage stable Creatinine trending up slightly Continue monitor BMP daily during IV diuretic medication COPD continue home bronchodilator Hypertension titrate home medications with clinical course. Type 2 diabetes Sliding scale insulin with Accu-Cheks adjust with clinical course. DVT/PE risk of gib CKD stage 3 Creatinine stable DVT prophylaxis scd DNR Subjective Date/time seen: 05/13/24 11:38 Interval history: I saw examined patient today. Patient feels dyspnea is improving, still has a cough with white phlegm with the cough. Patient denies chest pain abdomen pain nausea vomiting. Patient is afebrile blood pressure stable Exam Narrative: GENERAL: Frail, in no acute distress. Well-nourished. - EYES: EOMI. Anicteric. - HENT: Moist mucous membranes. - LUNGS: Crackles bilateral base, improves - CARDIOVASCULAR: Regular rate and rhythm. No murmur. + JVD. - ABDOMEN: Soft, non-tender and non-distended. No palpable masses. - EXTREMITIES: No edema. Peripheral pulses 2+. Non-tender. - NEUROLOGIC: No focal neurological deficits. CN II-XII grossly intact. - PSYCHIATRIC: Awake, Alert and oriented x 3. Appropriate mood and affect. - SKIN: No rashes or lesions. Warm. - LYMPH: No cervical lymphadenopathy. Objective Data Vital Signs Vital Signs: Vital Signs - 24 hr 05/12/24 12:00 05/12/24 14:00 05/12/24 16:00 Temperature 97.9 F Pulse Rate 84 69 78 Respiratory Rate 18 Blood Pressure 102/58 L Pulse Oximetry 95 Oxygen Delivery 05/12/24 19:49 05/12/24 20:00 05/12/24 20:00 Temperature 98.2 F Pulse Rate 79 78 Respiratory Rate 16 Blood Pressure 98/54 L Pulse Oximetry 97 Oxygen Delivery Room Air 05/13/24 00:00 05/13/24 01:40 05/13/24 04:00 Temperature Pulse Rate 84 81 79 Respiratory Rate 21 H Blood Pressure Pulse Oximetry 92 Oxygen Delivery Autopap 05/13/24 05:44 05/13/24 08:48 Temperature 97.9 F Pulse Rate 90 79 Respiratory Rate 16 Blood Pressure 98/54 L Pulse Oximetry 95 Oxygen Delivery Intake/Output Intake/Output: Intake & Output 05/10/24 05/11/24 05/12/24 05/13/24 23:59 23:59 23:59 23:59 Intake Total 940 120 980 50 Output Total 036 309 8270 500 Balance 690 -580 -20 -450 Meds/Results Medications: Active Medications Generic Name Dose Route Start Last Admin Trade Name Freq PRN Reason Stop Dose Admin Albuterol 1 puff 05/13/24 11:35 Albuterol Sulfate (*Sp) Aerosol 1 Puff INHALATION Q4H PRN shortness of breath or wheezing Amiodarone HCl 200 mg 05/08/24 08:00 05/13/24 08:48 Amiodarone Hcl 200 Mg Tablet PO 200 mg DAILY@0800 KEATON Administration Anastrozole 1 mg 05/08/24 09:00 05/13/24 08:49 Anastrozole (*Chemo) 1 Mg Tablet PO 1 mg DAILY KEATON Administration Apixaban 5 mg 05/07/24 21:00 05/08/24 08:36 Apixaban 5 Mg Tablet PO 5 mg Q12HR KEATON Administration Aspirin 81 mg 05/08/24 09:00 05/13/24 08:47 Aspirin 81 Mg Enteric Tablet PO 81 mg QAM KEATON Administration Atorvastatin Calcium 20 mg 05/08/24 09:00 05/13/24 08:48 Atorvastatin 20 Mg Tablet PO 20 mg DAILY KEATON Administration Cefdinir 300 mg 05/11/24 09:00 05/13/24 08:48 Cefdinir 300 Mg Capsule PO 05/13/24 21:01 300 mg Q12HR KEATON Administration Dextrose 12.5 gm 05/07/24 15:28 Dextrose 50% 25 Gm/50 Ml Syringe IV PUSH PRN PRN Hypoglycemia Protocol Donepezil HCl 10 mg 05/08/24 09:00 Donepezil Hcl 10 Mg Tablet BY MOUTH DAILY [facility] Empagliflozin 25 mg 05/08/24 09:00 05/13/24 08:48 Empagliflozin 25 Mg Tablet PO 25 mg DAILY KEATON Administration Ferrous Sulfate 325 mg 05/07/24 17:00 05/13/24 08:48 Ferrous Sulfate [address] BY MOUTH 325 mg BID KEATON Administration Furosemide 20 mg 05/11/24 18:25 05/13/24 08:49 Furosemide Inj 40 Mg/4 Ml Vial IV PUSH 20 mg BID KEATON Administration Glucagon 1 mg 05/07/24 15:28 Glucagon For Inj 1 Mg Vial IM PRN PRN Hypoglycemia Protocol Glucose 15 gm 05/07/24 15:28 Glucose Oral Gel 15 Gm Of Glucse In 37.5 Gm Tube PO PRN PRN Hypoglycemia Protocol Dextrose 1,000 mls @ 100 mls/hr 05/07/24 15:28 Dextrose 5% 1,000 Ml IVPB PRN PRN Hypoglycemia Protocol Insulin Aspart 2 - 5 units 05/07/24 17:00 05/13/24 09:00 Insulin Aspart (*Bkc) 100 Units/Ml SUB-Q Not Given TIDWM KEATON Protocol Insulin Aspart 1 - 2 units 05/07/24 21:00 05/12/24 20:31 Insulin Aspart (*Bkc) 100 Units/Ml SUB-Q Not Given HS KEATON Protocol Levothyroxine Sodium 112 mcg 05/08/24 06:30 05/13/24 05:42 Levothyroxine Sodium 112 Mcg Tablet PO 112 mcg DAILY@0630 KEATON Administration Linezolid 600 mg 05/11/24 09:00 05/13/24 08:48 Linezolid 600 Mg Tablet PO 05/14/24 21:01 600 mg Q12HR KEATON Administration Memantine 10 mg 05/07/24 17:00 05/13/24 08:48 Memantine 10 Mg Tablet PO 10 mg BID KEATON Administration Pantoprazole Sodium 40 mg 05/09/24 21:00 05/13/24 08:49 Pantoprazole Sodium Iv 40 Mg Vial IV PUSH 40 mg Q12HR KEATON Administration Polyethylene Glycol 17 gm 05/08/24 16:30 05/13/24 08:46 Polyethylene Glycol 3350 17 Gm Powd.Pack PO 17 gm QAM KEATON Administration Potassium Chloride 20 meq 05/12/24 09:00 05/13/24 08:48 Potassium Chloride 20 Meq Er Tablet PO 20 meq DAILY KEATON Administration Potassium Chloride 20 meq 05/13/24 11:40 Potassium Chloride 20 Meq Packet (For Liquid) PO BID KEATON Sertraline HCl 200 mg 05/08/24 09:00 05/13/24 08:47 Sertraline Hcl 50 Mg Tablet PO 200 mg DAILY KEATON Administration Spironolactone 12.5 mg 05/08/24 09:00 05/13/24 08:48 Spironolactone 12.5 Mg Tablet PO 12.5 mg DAILY KEATON Administration Radiology Results: ITS Impressions Chest X-Ray 05/11/24 12:15 IMPRESSION: 1. Airspace opacities in right mid and upper lung zones and left mid and lower lung zones with interval worsening, consistent with pulmonary edema versus pneumonia. 2. Cardiomegaly. Labs Labs: Laboratory Results - last 24 hr 05/12/24 05/12/24 05/12/24 12:08 16:22 20:12 Sodium Potassium Chloride Carbon Dioxide Anion Gap BUN Creatinine Estim Creat Clear Calc Estimated GFR Glucose POC Capillary Glucose 141 H 141 H 164 H Calcium Phosphorus Magnesium 05/13/24 05/13/24 05:28 08:37 Sodium 135 L Potassium 3.2 L Chloride 100 Carbon Dioxide 30 Anion Gap 5 BUN 23 H Creatinine 1.62 H Estim Creat Clear Calc 27 Estimated GFR 31 L Glucose 106 POC Capillary Glucose 102 Calcium 8.2 L Phosphorus 3.0 Magnesium 1.8
[2024-05-13 11:41] LABS: Basophils Percent Auto 0.4 % (0.2-1.2); Eosinophils Absolute Auto 0.2 K/mm3 (0-0.3); Eosinophils Percent Auto 3.4 % (0-4.4); Hematocrit 28.6 % (37.0-47.0); Hemoglobin 8.8 g/dL (12.0-15.0); Immature Granulocyte Absolute 0.01 K/mm3 (0.00-0.031); Immature Granulocyte Percent A 0.2 % (0-0.5); Lymphocytes Absolute Auto 0.76 K/mm3 (0.9-3.2); Lymphocytes Percent Auto 16.3 % (18.3-44.2); Mean Corpuscular HGB Conc 30.8 g/dl (32-36); Mean Corpuscular Hemoglobin 28.1 pg (26-34); Mean Corpuscular Volume 91.4 fl (80-100); Mean Platelet Volume 10.3 fl (7.4-10.4); Monocytes Absolute Auto 0.7 K/mm3 (0.1-0.6); Neutrophils Absolute Auto 3.1 K/mm3 (1.3-6.7); Neutrophils Percent Auto 65.7 % (45.5-73.1); Platelet Count Result 461 k/mm3 (150-375); Red Blood Count 3.13 M/mm3 (4.2-5.4); Red Cell Distribution Width 16.9 % (11.5-14.5); White Blood Count 4.7 K/mm3 (4.5-10.0)
[2024-05-13 12:05] LABS: Glucose Point of Care 92 mg/dl (65-105)
[2024-05-13] MEDS: POTASSIUM CHLORIDE 20 MEQ PACKET (FOR LIQUID) PO (13:02)
--- NOTE | 2024-05-13 13:16 | PM.CNCAR ---
Assessment and Plan Assessment and plan (1) Acute on chronic systolic CHF (congestive heart failure): Code(s): I50.23 - Acute on chronic systolic (congestive) heart failure Status: Acute Assessment and Plan: 74-year-old female with CHF with reduced ejection fraction in the setting of nonischemic cardiomyopathy, history of polymorphic V-tach successfully resuscitated, PAF, hypertension, type 2 diabetes mellitus, rheumatoid arthritis, normocytic anemia. Patient admitted with worsening shortness of breath and respiratory failure in the setting of CHF exacerbation and pneumonia. Symptomatic improvement since admission to the hospital. -continue diuresis with furosemide, may switch to p.o. furosemide tomorrow if volume status continues to improve. Monitor electrolytes and renal function. -optimal, tolerating medical treatment for CHFrEF. Patient is currently on empagliflozin and low-dose spironolactone. Her blood pressure is on the lower side. May add low-dose beta-gina when blood pressure allows. May also add low-dose sacubitril/valsartan when blood pressure allows and when kidney function stabilizes. -patient has paroxysmal atrial fibrillation, currently in sinus rhythm. She is on amiodarone for rhythm control. Due to anemia, her anticoagulation has been put on hold. No indication for aspirin, which may be discontinued. -patient's DNR status. She appeared to be very depressed at the time of evaluation. Spoke with the care team. Social work/test case developer evaluation to make sure patient has arrangement for cardiology follow-up after hospital discharge. May consider psychiatric evaluation/counseling. History of Present Illness History of Present Illness Consult date/time: 05/13/24 13:16 Requesting physician: Ganesh Rodarte MD Consult reason: Other (CHF) Reason For Visit: acute respiratory failure with hypoxia, pneumonia Narrative: DATE OF CONSULT: 05/13/2024 REASON FOR CONSULT: CHF REQUESTING PHYSICIAN: Dr. Rodarte CHIEF COMPLAINT: Shortness of breath HPI: 74-year-old female with CHF with reduced ejection fraction in the setting of nonischemic cardiomyopathy, history of polymorphic V-tach successfully resuscitated, PAF, hypertension, type 2 diabetes mellitus, CKD, rheumatoid arthritis, normocytic anemia. Patient presented to [facility] Emergency Room on 05/07/2024 with shortness of breath. She was found to be hypoxemic with saturations in the 70s. She denies chest pain, palpitation, dizziness or syncope. Patient has generalized debility, and minimally mobile due to arthritis. She currently lives in [facility] facility. It is uncertain if patient is compliant with medical regimen. She states that she has not followed up with Cardiology since her last admission in January 2024. EKG at presentation on my personal interpretation showed sinus rhythm, low voltage, no acute ST segment abnormality. Nonspecific ST T wave changes on the subsequent EKG. NT proBNP elevated at 2140. Chest x-ray showed Left basilar atelectasis versus pneumonia. Recent echo from 02/07/2024 reportedly showed LV enlargement, LV systolic dysfunction with segmental wall motion abnormality, LVEF 20-25%; [id number] MR. Cardiac catheterization from 02/08/2024 reportedly did not show any significant obstructive CAD. Review of Systems Review of Systems: General: Positive for fatigue Psychological: Positive for anxiety, depression Ophthalmic: negative for loss of vision ENT: Negative for epistaxis, headaches Allergy and immunology: Negative for hives, nasal congestion Hematologic and lymphatic: Negative for overt bleeding problems Endocrine: Negative for hot flashes, palpitations Respiratory: Positive for dyspnea which has improved Cardiovascular: Negative for chest pain, positive for dyspnea Gastrointestinal: Negative for abdominal pain Musculoskeletal: Positive for joint pains Neurological: Positive for weakness Dermatological: Negative for rash, skin discoloration PMFSH Past Medical History Medical History (Updated 05/13/24 @ 13:36 by Darren Collins MD) Nonischemic cardiomyopathy Iron deficiency anemia Acute anxiety Ataxia Low vitamin B12 level Dementia on donepezil and memantine Urine incontinence Depression with anxiety Degenerative arthritis of knee, bilateral Cyst Obesity 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 Bullous pemphigoid On daily prednisone. 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 Neoadjuvant chemotherapy with TCH and Perjeta. status left breast mastectomy with sentinel lymph node biopsy on 07/31/2019. Obstructive sleep apnea on CPAP Pulmonary embolism Surgical History Surgical History H/O dilation and curettage H/O oophorectomy one ovary-unsure side History of cardiac catheterization History of total mastectomy of left breast (~07/2019) History of cystoscopy With lithotripsy and stent placement. History of cholecystectomy History of bilateral cataract extraction History of tubal ligation History of appendectomy History of hysterectomy Status post cataract extraction of both eyes with insertion of intraocular lens Hx of cholecystectomy History of partial mastectomy of left breast Approximately 2018 Family History Family History Father Acute myocardial infarction Father Cerebrovascular accident Acute myocardial infarction Tobacco abuse Mother Cerebrovascular accident Sibling No problems noted. Social History Social History Social History: The patient is never and has no children. 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 She is currently in assisted living at [facility], and has been there for a couple of months since she started chemotherapy. She also owns a home in [place], where she hopes to return. Her gbgesh-nu-tia, Sofia, is her surrogate decision maker. She wishes to be a full code. Smoking status: Never smoker Second hand tobacco smoke exposure: Yes Alcohol intake: former Alcohol use details: Occasional Substance use: never Substance use type: does not use Do You Feel Safe in your Home?: Yes Lack of Transportation: YES Lack of Food: Never True Current Housing: I Have Housing Concerned About Future Housing: No Difficulty Paying Gas/Electric Bills: No Difficulty Paying for Meds: No Currently Unemployed: No Education: Bachelor's Degree Difficulty w/ Childcare or Family Care: No [facility] Occupation/Education: retired Additional occupation/education comments: 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 Gender identity (if verbalized by the patient): Female Sexual Orientation (if Verbalized by the Patient): Straight or Heterosexual Spiritual care concerns: No Agree to blood products: Yes Meds Home Medications and Allergies Home Medications ?Medication ?Instructions ?Recorded ?Confirmed ?Type blood sugar diagnostic (Contour #100 ea 05/03/19 05/07/24 Rx Next Test Strips) blood sugar diagnostic (Blood #100 ea 12/25/19 05/07/24 Rx Glucose Test strips) lancets (Lancets, Super Thin) #100 ea 12/25/19 05/07/24 Rx hydrocolloid dressing 4 X 4 #20 ea 12/15/21 05/07/24 Rx (DuoDERM CGF Adhesive Border Dressing) silicone,dressing-foam bandage 3 #10 ea 02/18/23 05/07/24 Rx X 3 albuterol sulfate 90 mcg/actuation 1 inh inhalation Q4H PRN shortness 05/10/23 05/07/24 Rx aerosol inhaler (ProAir HFA) of breath or wheezing #6.7 grams blood-glucose meter (Accu-Chek #1 ea 08/03/23 05/07/24 Rx Guide Glucose Meter) foam bandage 9.2 X 9.2 (Mepilex #5 ea 09/06/23 05/07/24 Rx Border Sacrum) potassium chloride 20 mEq 20 meq PO DAILY #30 tabs 12/16/23 05/07/24 Rx tablet,extended release apixaban 5 mg tablet (Eliquis) 5 mg PO Q12HR #60 tabs 01/03/24 05/07/24 Rx furosemide 20 mg tablet 20 mg PO BID #60 tabs 01/15/24 05/07/24 Rx cyanocobalamin (vitamin B-12) 1,000 mcg PO DAILY 02/05/24 05/07/24 History 1,000 mcg tablet (Vitamin B-12) ferrous sulfate 325 mg (65 mg 325 mg PO BID 02/05/24 05/07/24 History iron) tablet (FeroSul) levothyroxine 112 mcg tablet 112 mcg PO DAILY 02/05/24 05/07/24 History memantine 10 mg tablet 10 mg PO BID 02/05/24 05/07/24 History sertraline 100 mg tablet 200 mg PO DAILY 02/05/24 05/07/24 History spironolactone 25 mg tablet 12.5 mg PO DAILY 02/05/24 05/07/24 History amiodarone 200 mg tablet (Pacerone) 200 mg PO DAILY@0800 #30 tabs 02/16/24 05/07/24 Rx aspirin 81 mg tablet,delayed 81 mg PO QAM #60 tabs 02/16/24 05/07/24 Rx release atorvastatin 20 mg tablet 20 mg PO DAILY #30 tabs 02/16/24 05/07/24 Rx anastrozole 1 mg tablet See Rx Instructions .Route 02/27/24 05/07/24 Rx .COMPLEX #30 tabs donepezil 10 mg tablet See Rx Instructions .Route 02/27/24 05/07/24 Rx .COMPLEX #90 tabs acetaminophen 325 mg capsule 650 mg PO Q4H PRN fever or pain 05/07/24 05/07/24 History benzonatate 200 mg capsule 200 mg PO BID PRN cough 05/07/24 05/07/24 History cholecalciferol (vitamin D3) 50 6,000 unit PO DAILY 05/07/24 05/07/24 History mcg (2,000 unit) capsule empagliflozin 25 mg tablet 25 mg PO DAILY 05/07/24 05/07/24 History (Jardiance) polyethylene glycol 3350 17 gram 17 g PO DAILY 05/07/24 05/07/24 History oral powder packet (Miralax) Allergies Allergy/AdvReac Type Severity Reaction Status Date / Time amoxicillin Allergy Severe DIFFICULTY Verified 05/07/24 09:52 BREATHING/HIVES Iodinated Contrast Media Allergy Severe Anaphylaxis Verified 05/07/24 09:52 lisinopril Allergy Severe Swelling Verified 05/07/24 09:52 of Lip/Tongue/Throat methotrexate Allergy Severe Hives Verified 05/07/24 09:52 Penicillins Allergy Severe DIFFICULTY Verified 05/07/24 09:52 BREATHING/HIVES tetracycline Allergy Severe Hives Verified 05/07/24 09:52 metformin Allergy Unknown Jittery Verified 05/07/24 09:52 adhesive tape AdvReac Intermediate SKIN PEELS Verified 05/07/24 09:52 OFF codeine AdvReac Mild NAUSEA/VOMI Verified 05/07/24 09:52 TING ioversol AdvReac Unknown DOESN'T Verified 05/07/24 09:52 REMEMBER Vital Signs Vital Signs - 24 hr 05/12/24 14:00 05/12/24 16:00 05/12/24 19:49 Temperature 36.6 C 36.8 C Pulse Rate 69 78 79 Respiratory Rate 18 16 Blood Pressure 102/58 L 98/54 L Pulse Oximetry 95 97 Oxygen Delivery 05/12/24 20:00 05/12/24 20:00 05/13/24 00:00 Temperature Pulse Rate 78 84 Respiratory Rate Blood Pressure Pulse Oximetry Oxygen Delivery Room Air 05/13/24 01:40 05/13/24 04:00 05/13/24 05:44 Temperature 36.6 C Pulse Rate 81 79 90 Respiratory Rate 21 H 16 Blood Pressure 98/54 L Pulse Oximetry 92 95 Oxygen Delivery Autopap 05/13/24 08:48 Temperature Pulse Rate 79 Respiratory Rate Blood Pressure Pulse Oximetry Oxygen Delivery Exam Narrative: PHYSICAL EXAMINATION: GENERAL: Elderly female, appears older for age; Alert, no acute distress; sitting up in the chair MENTAL STATUS: Depressed mood EYES: Extraocular movements intact, pallor EARS: External ears appear normal, hearing grossly normal NOSE: Normal and patent, no discharge MOUTH: Mucous membranes moist, tongue normal NECK: Supple, JVP not appreciable CHEST: Good respiratory effort, clear to auscultation HEART: Normal rate, regular rhythm with occasional ectopic beats; systolic murmur ABDOMEN: Soft, nontender NEUROLOGICAL: Alert, oriented, normal speech MUSCULOSKELETAL: No major deformity, no amputation EXTREMITIES: Trace pedal edema, no clubbing, no cyanosis SKIN: no rash on the exposed area, no cyanosis PSYCHIATRIC: Appears depressed Results Labs and Meds 05/13/24 05:28 05/13/24 05:28 Lab results: CBC 05/13/24 Range/Units 05:28 WBC 4.7 (4.5-10.0) K/mm3 RBC 3.13 L (4.2-5.4) M/mm3 Hgb 8.8 L (12.0-15.0) g/dL Hct 28.6 L (37.0-47.0) % Plt Count 461 H (150-375) k/mm3 Lymph # (Auto) 0.76 L (0.9-3.2) K/mm3 [place] # (Auto) 0.7 H (0.1-0.6) K/mm3 Eos # (Auto) 0.2 (0-0.3) K/mm3 Baso # (Auto) 0.0 (0.0-0.1) K/mm3 Comprehensive Metabolic Panel 05/13/24 Range/Units 05:28 Sodium 135 L (137-145) mmol/L Potassium 3.2 L (3.4-5.0) mmol/L Chloride 100 (98-107) mmol/L Carbon Dioxide 30 (22-30) mmol/L BUN 23 H (7-17) mg/dL Creatinine 1.62 H (0.7-1.0) mg/dL Glucose 106 (65-110) mg/dL Calcium 8.2 L (8.4-10.2) mg/dL Intake and Output 05/12/24 05/13/24 05/13/24 23:59 07:59 15:59 Intake Total 490 50 Output Total 500 500 Balance -10 -450 Intake: Oral 490 50 Output: Catheter Urine 500 500 External/Condom 500 500 Other: # Unmeasured Voids 1 Number of Bowel Movements Today 2 Patient Weight 05/13/24 23:59 Weight 76.7 kg
[2024-05-13 17:17] LABS: Glucose Point of Care 111 mg/dl (65-105)
[2024-05-13 20:38] LABS: Glucose Point of Care 107 mg/dl (65-105)
[2024-05-14] VITALS (11 sets, daily range): BP systolic 94–113; BP diastolic 59–70; PULSE 73–108; RESP 12–20; TEMP 36.4–36.7; O2SAT 91–96
[2024-05-14 05:29] LABS: Basophils Percent Auto 0.8 % (0.2-1.2); Eosinophils Absolute Auto 0.2 K/mm3 (0-0.3); Eosinophils Percent Auto 4.6 % (0-4.4); Hematocrit 30.2 % (37.0-47.0); Hemoglobin 9.4 g/dL (12.0-15.0); Immature Granulocyte Absolute 0.01 K/mm3 (0.00-0.031); Immature Granulocyte Percent A 0.3 % (0-0.5); Lymphocytes Absolute Auto 0.89 K/mm3 (0.9-3.2); Lymphocytes Percent Auto 22.6 % (18.3-44.2); Mean Corpuscular HGB Conc 31.1 g/dl (32-36); Mean Corpuscular Hemoglobin 28.4 pg (26-34); Mean Corpuscular Volume 91.2 fl (80-100); Mean Platelet Volume 9.6 fl (7.4-10.4); Monocytes Absolute Auto 0.5 K/mm3 (0.1-0.6); Monocytes Percent Auto 12.9 % (2.6-8.5); Neutrophils Absolute Auto 2.3 K/mm3 (1.3-6.7); Neutrophils Percent Auto 58.8 % (45.5-73.1); Platelet Count Result 417 k/mm3 (150-375); Red Blood Count 3.31 M/mm3 (4.2-5.4); Red Cell Distribution Width 16.9 % (11.5-14.5); White Blood Count 3.9 K/mm3 (4.5-10.0)
[2024-05-14] MEDS: LEVOTHYROXINE SODIUM 112 MCG TABLET PO (05:40)
[2024-05-14 05:45] LABS: Anion Gap 6 mmol/L (4-12); Blood Urea Nitrogen 24 mg/dL (7-17); Calcium 8.6 mg/dL (8.4-10.2); Carbon Dioxide 31 mmol/L (22-30); Chloride 101 mmol/L (98-107); Estimated CRCL calculation 24 ml/min; Estimated Glomerular Filt Rate 28; Glucose 102 mg/dL (65-110); Magnesium 1.8 mg/dL (1.6-2.3); Phosphorus 3.3 mg/dL (2.5-4.5); Potassium 3.3 mmol/L (3.4-5.0); Sodium 138 mmol/L (137-145)
[2024-05-14 08:41] LABS: Glucose Point of Care 128 mg/dl (65-105)
[2024-05-14] MEDS: SERTRALINE HCL 50 MG TABLET 200 MG PO (08:59)
[2024-05-14] MEDS: AMIODARONE HCL 200 MG TABLET PO (08:59)
[2024-05-14] MEDS: ATORVASTATIN 20 MG TABLET PO (09:00)
[2024-05-14] MEDS: ANASTROZOLE (*CHEMO) 1 MG TABLET PO (09:00)
[2024-05-14] MEDS: FUROSEMIDE INJ 40 MG/4 ML VIAL 20 MG IV PUSH (09:00)
[2024-05-14] MEDS: MEMANTINE 10 MG TABLET PO ×2 (09:00→17:28)
[2024-05-14] MEDS: EMPAGLIFLOZIN 25 MG TABLET PO (09:00)
[2024-05-14] MEDS: LINEZOLID 600 MG TABLET PO ×2 (09:00→20:26)
[2024-05-14] MEDS: FERROUS SULFATE 325 MG TABLET DR BY MOUTH ×2 (09:00→17:28)
[2024-05-14] MEDS: SPIRONOLACTONE 12.5 MG TABLET PO (09:00)
[2024-05-14] MEDS: POTASSIUM CHLORIDE 20 MEQ PACKET (FOR LIQUID) PO ×2 (09:00→17:28)
[2024-05-14] MEDS: PANTOPRAZOLE SODIUM IV 40 MG VIAL IV PUSH ×2 (09:00→20:29)
--- NOTE | 2024-05-14 09:13 | PM.IMPN ---
Progress Note: A&P Assessment and Plan (1) Cardiac arrest: Code(s): I46.9 - Cardiac arrest, cause unspecified Status: Acute (2) Shock: Code(s): R57.9 - Shock, unspecified Status: Acute (3) Decubitus ulcer: Code(s): L89.90 - Pressure ulcer of unspecified site, unspecified stage Status: Acute (4) Electrolyte abnormality: Code(s): E87.8 - Other disorders of electrolyte and fluid balance, not elsewhere classified Status: Acute (5) Acute kidney injury: Code(s): N17.9 - Acute kidney failure, unspecified Status: Acute (6) Acute kidney injury superimposed on CKD: Code(s): N17.9 - Acute kidney failure, unspecified; N18.9 - Chronic kidney disease, unspecified Status: Acute (7) Essential (primary) hypertension: Code(s): I10 - Essential (primary) hypertension Status: Chronic (8) Acute hypoxemic respiratory failure: Code(s): J96.01 - Acute respiratory failure with hypoxia Status: Acute (9) Pneumonia: Qualifiers: Laterality: left Lung location: lower lobe of lung Pneumonia type: due to unspecified organism Qualified Code(s): J18.9 - Pneumonia, unspecified organism Code(s): J18.9 - Pneumonia, unspecified organism Status: Acute Plan Acute hypoxemic respiratory failure From pneumonia. Chest x-ray reviewed. Rocephin azithromycin. Blood and sputum culture MRSA positive Received Rocephin azithromycin IV since admission Changed to cefdinir and azithromycin p.o. per ID pharmacist recommendation Acute on chronic Systolic CHF, EF 20-25% on LifeVest Home medication medications: Jardiance 25 mg daily p.o., furosemide 20 mg b.i.d. p.o., spironolactone 12.5 mg daily p.o. Acute systolic heart failure provide furosemide 40 mg IV push once 05/11 Elevated BNP and chest x-ray 05/11: Airspace opacity in right mid and upper lobe zone and left mid and lower low zone with interval worsening, consistent with pulmonary edema and pneumonia Start Lasix 20 mg b.i.d. IV push 05/11 Consult ground defence officer for evaluation treatment Patient feels better today, cough improving, dyspnea is improving Received IV Lasix 20 mg b.i.d. IV push Changed to Lasix 40 mg daily p.o. per ground defence officer 06/14 Pneumonia Chest x-ray reviewed, showed left basilar pneumonia Patient has productive cough and phlegm Finish antibiotics on 05/13 Antibiotics see above Symptomatic Anemia Hemoglobin 7.8 with thrombocytosis iron panel: Iron 26, saturation 15, suggesting iron deficient anemia FOBT pending, Patient on blood thinner, possible GI bleeding GI consulted. Monitor H&H. Hemoglobin 7.0 Transfuse 1 pack RBC, Hemoglobin is trending down slowly Guaiac is positive KURT on CPAP Continue CPAP. Paroxysmal atrial fibrillation hold Eliquis,possible GIB hb is tending down titrate rate control. CKD stage stable Creatinine trending up slightly Continue monitor BMP daily during IV diuretic medication COPD continue home bronchodilator Hypertension titrate home medications with clinical course. Type 2 diabetes Sliding scale insulin with Accu-Cheks adjust with clinical course. DVT/PE risk of gib CKD stage 3 Creatinine stable DVT prophylaxis scd DNR Patient denies depression and suicidal ideation. Patient has general weakness. Patient has a poor intake. Consult PT OT social studies department chair for evaluation and assisting placement. Patient may benefit from rehab in the alf. may discharge patient in 2 days Subjective Date/time seen: 05/14/24 09:13 Interval history: I saw examined patient today. Patient denies dyspnea at rest, mild cough without phlegm. Patient does have appetite, patient can eat drink. Patient denies depression, suicide ideation. Exam Narrative: GENERAL: Frail, in no acute distress. Well-nourished. - EYES: EOMI. Anicteric. - HENT: Moist mucous membranes. - LUNGS: Scattered crackles bilateral, edema improving - CARDIOVASCULAR: Regular rate and rhythm. No murmur. + JVD. - ABDOMEN: Soft, non-tender and non-distended. No palpable masses. - EXTREMITIES: No edema. Peripheral pulses 2+. Non-tender. - NEUROLOGIC: No focal neurological deficits. CN II-XII grossly intact. - PSYCHIATRIC: Awake, Alert and oriented x 3. Appropriate mood and affect. - SKIN: No rashes or lesions. Warm. - LYMPH: No cervical lymphadenopathy. Objective Data Vital Signs Vital Signs: Vital Signs - 24 hr 05/13/24 12:00 05/13/24 16:00 05/13/24 16:00 Temperature 98.5 F Pulse Rate 94 84 95 Respiratory Rate 17 Blood Pressure 102/57 L Pulse Oximetry 96 Oxygen Delivery 05/13/24 19:20 05/13/24 20:00 05/13/24 21:22 Temperature 97.2 F L Pulse Rate 86 85 100 Respiratory Rate 20 20 Blood Pressure 102/59 L Pulse Oximetry 95 91 Oxygen Delivery Autopap 05/14/24 00:00 05/14/24 02:38 05/14/24 04:00 Temperature Pulse Rate 82 95 84 Respiratory Rate 12 Blood Pressure Pulse Oximetry 91 Oxygen Delivery Autopap 05/14/24 05:26 05/14/24 08:59 Temperature 97.5 F L Pulse Rate 85 73 Respiratory Rate 20 Blood Pressure 94/59 L Pulse Oximetry 96 Oxygen Delivery Intake/Output Intake/Output: Intake & Output 05/11/24 05/12/24 05/13/24 05/14/24 23:59 23:59 23:59 23:59 Intake Total 120 980 200 100 Output Total 700 1000 800 400 Balance -580 -20 -600 -300 Meds/Results Medications: Active Medications Generic Name Dose Route Start Last Admin Trade Name Freq PRN Reason Stop Dose Admin Albuterol 1 puff 05/13/24 11:35 Albuterol Sulfate (*Sp) Aerosol 1 Puff INHALATION Q4H PRN shortness of breath or wheezing Amiodarone HCl 200 mg 05/08/24 08:00 05/14/24 08:59 Amiodarone Hcl 200 Mg Tablet PO 200 mg DAILY@0800 KEATON Administration Anastrozole 1 mg 05/08/24 09:00 05/14/24 09:00 Anastrozole (*Chemo) 1 Mg Tablet PO 1 mg DAILY [facility] Administration Apixaban 5 mg 05/07/24 21:00 05/08/24 08:36 Apixaban 5 Mg Tablet PO 5 mg Q12HR [facility]ON Administration Atorvastatin Calcium 20 mg 05/08/24 09:00 05/14/24 09:00 Atorvastatin 20 Mg Tablet PO 20 mg DAILY [facility] Administration Dextrose 12.5 gm 05/07/24 15:28 Dextrose 50% 25 Gm/50 Ml Syringe IV PUSH PRN PRN Hypoglycemia Protocol Donepezil HCl 10 mg 05/08/24 09:00 Donepezil Hcl 10 Mg Tablet BY MOUTH DAILY KEATON Empagliflozin 25 mg 05/08/24 09:00 05/14/24 09:00 Empagliflozin 25 Mg Tablet PO 25 mg DAILY [facility] Administration Ferrous Sulfate 325 mg 05/07/24 17:00 05/14/24 09:00 Ferrous Sulfate [address] BY MOUTH 325 mg BID [facility] Administration Furosemide 20 mg 05/11/24 18:25 05/14/24 09:00 Furosemide Inj 40 Mg/4 Ml Vial IV PUSH 20 mg BID KE[facility]ON Administration Glucagon 1 mg 05/07/24 15:28 Glucagon For Inj 1 Mg Vial IM PRN PRN Hypoglycemia Protocol Glucose 15 gm 05/07/24 15:28 Glucose Oral Gel 15 Gm Of Glucse In 37.5 Gm Tube PO PRN PRN Hypoglycemia Protocol Dextrose 1,000 mls @ 100 mls/hr 05/07/24 15:28 Dextrose 5% 1,000 Ml IVPB PRN PRN Hypoglycemia Protocol Insulin Aspart 2 - 5 units 05/07/24 17:00 05/14/24 09:01 Insulin Aspart (*Bkc) 100 Units/Ml SUB-Q Not Given TIDWM [facility] Protocol Insulin Aspart 1 - 2 units 05/07/24 21:00 05/13/24 20:03 Insulin Aspart (*Bkc) 100 Units/Ml SUB-Q Not Given HS [facility] Protocol Levothyroxine Sodium 112 mcg 05/08/24 06:30 05/14/24 05:40 Levothyroxine Sodium 112 Mcg Tablet PO 112 mcg DAILY@0630 [facility]ATON Administration Linezolid 600 mg 05/11/24 09:00 05/14/24 09:00 Linezolid 600 Mg Tablet PO 05/14/24 21:01 600 mg Q12HR [facility] Administration Memantine 10 mg 05/07/24 17:00 05/14/24 09:00 Memantine 10 Mg Tablet PO 10 mg BID KE[facility] Administration Pantoprazole Sodium 40 mg 05/09/24 21:00 05/14/24 09:00 Pantoprazole Sodium Iv 40 Mg Vial IV PUSH 40 mg Q12HR [facility] Administration Polyethylene Glycol 17 gm 05/08/24 16:30 05/14/24 09:02 Polyethylene Glycol 3350 17 Gm Powd.Pack PO Not Given QAM [facility] Potassium Chloride 20 meq 05/13/24 11:40 05/14/24 09:00 Potassium Chloride 20 Meq Packet (For Liquid) PO 20 meq BID KEATON Administration Sertraline HCl 200 mg 05/08/24 09:00 05/14/24 08:59 Sertraline Hcl 50 Mg Tablet PO 200 mg DAILY [facility] Administration Spironolactone 12.5 mg 05/08/24 09:00 05/14/24 09:00 Spironolactone 12.5 Mg Tablet PO 12.5 mg DAILY KE[facility]ON Administration Radiology Results: ITS Impressions Chest X-Ray 05/11/24 12:15 IMPRESSION: 1. Airspace opacities in right mid and upper lung zones and left mid and lower lung zones with interval worsening, consistent with pulmonary edema versus pneumonia. 2. Cardiomegaly. Labs Labs: Laboratory Results - last 24 hr 05/13/24 05/13/24 05/13/24 05:28 12:02 17:12 WBC 4.7 RBC 3.13 L Hgb 8.8 L Hct 28.6 L MCV 91.4 MCH 28.1 MCHC 30.8 L RDW 16.9 H Plt Count 461 H MPV 10.3 Immature Gran % (Auto) 0.2 Neut % (Auto) 65.7 Lymph % (Auto) 16.3 L [place] % (Auto) 14.0 H Eos % (Auto) 3.4 Baso % (Auto) 0.4 Lymph # (Auto) 0.76 L [place] # (Auto) 0.7 H Eos # (Auto) 0.2 Baso # (Auto) 0.0 Abs Immat Gran (auto) 0.01 Absolute Neuts (auto) 3.1 Absolute Nucleated RBC 0.000 Nucleated RBC % 0.0 Sodium Potassium Chloride Carbon Dioxide Anion Gap BUN Creatinine Estim Creat Clear Calc Estimated GFR Glucose POC Capillary Glucose 92 111 H Calcium Phosphorus Magnesium 05/13/24 05/14/24 05/14/24 20:01 05:21 08:38 WBC 3.9 L RBC 3.31 L Hgb 9.4 L Hct 30.2 L MCV 91.2 MCH 28.4 MCHC 31.1 L RDW 16.9 H Plt Count 417 H MPV 9.6 Immature Gran % (Auto) 0.3 Neut % (Auto) 58.8 Lymph % (Auto) 22.6 [place] % (Auto) 12.9 H Eos % (Auto) 4.6 H Baso % (Auto) 0.8 Lymph # (Auto) 0.89 L [place] # (Auto) 0.5 Eos # (Auto) 0.2 Baso # (Auto) 0.0 Abs Immat Gran (auto) 0.01 Absolute Neuts (auto) 2.3 Absolute Nucleated RBC 0.000 Nucleated RBC % 0.0 Sodium 138 Potassium 3.3 L Chloride 101 Carbon Dioxide 31 H Anion Gap 6 BUN 24 H Creatinine 1.79 H Estim Creat Clear Calc 24 Estimated GFR 28 L Glucose 102 POC Capillary Glucose 107 H 128 H Calcium 8.6 Phosphorus 3.3 Magnesium 1.8
[2024-05-14 12:06] LABS: Glucose Point of Care 117 mg/dl (65-105)
--- NOTE | 2024-05-14 14:53 | P.PNCA_ITS ---
Progress Note: A&P Assessment and Plan (1) Acute on chronic systolic CHF (congestive heart failure): Code(s): I50.23 - Acute on chronic systolic (congestive) heart failure Status: Acute Assessment and Plan: 74-year-old female with CHF with reduced ejection fraction in the setting of nonischemic cardiomyopathy, history of polymorphic V-tach successfully resuscitated, PAF, hypertension, type 2 diabetes mellitus, rheumatoid arthritis, normocytic anemia. Patient admitted with worsening shortness of breath and respiratory failure in the setting of CHF exacerbation and pneumonia. Symptomatic improvement since admission to the hospital. -will shift to furosemide p.o. 40 mg daily. Monitor electrolytes and renal function. -optimal, tolerating medical treatment for CHFrEF. Patient is currently on empagliflozin and low-dose spironolactone. Her blood pressure is on the lower side. May add low-dose beta-gina when blood pressure allows. May also add low-dose sacubitril/valsartan when blood pressure allows and when kidney function stabilizes. -patient has paroxysmal atrial fibrillation, currently in sinus rhythm. She is on amiodarone for rhythm control. Due to anemia, her anticoagulation has been put on hold. No indication for aspirin, which may be discontinued. -patient's DNR status. She appeared to be very depressed at the time of evaluation. Spoke with the care team. Tie Sawyer has been called. Subjective Date/time seen: 05/14/24 14:53 Interval history: Cardiology follow-up visit 05/14/2024: Patient states that she feels okay today. She denies any shortness of breath, chest pain, palpitations. It the still has a lot of phlegm. She is asking questions about how much longer she has to live and wants to speak with the thread reeler. Review of Systems Review of Systems: General: Positive for fatigue Psychological: Positive for anxiety, depression Ophthalmic: negative for loss of vision ENT: Negative for epistaxis, headaches Allergy and immunology: Negative for hives, nasal congestion Hematologic and lymphatic: Negative for overt bleeding problems Endocrine: Negative for hot flashes, palpitations Respiratory: Positive for dyspnea which has improved Cardiovascular: Negative for chest pain, positive for dyspnea Gastrointestinal: Negative for abdominal pain Musculoskeletal: Positive for joint pains Neurological: Positive for weakness Dermatological: Negative for rash, skin discoloration Exam Narrative: PHYSICAL EXAMINATION: GENERAL: Elderly female, appears older for age; Alert, no acute distress; sitting up in the chair MENTAL STATUS: Depressed mood EYES: Extraocular movements intact, pallor EARS: External ears appear normal, hearing grossly normal NOSE: Normal and patent, no discharge MOUTH: Mucous membranes moist, tongue normal NECK: Supple, JVP not appreciable CHEST: Good respiratory effort, clear to auscultation HEART: Normal rate, regular rhythm with occasional ectopic beats; systolic murmur ABDOMEN: Soft, nontender NEUROLOGICAL: Alert, oriented, normal speech MUSCULOSKELETAL: No major deformity, no amputation EXTREMITIES: Trace pedal edema, no clubbing, no cyanosis SKIN: no rash on the exposed area, no cyanosis PSYCHIATRIC: Appears depressed Objective Data Vital Signs Vital Signs: Vital Signs - 24 hr 05/13/24 16:00 05/13/24 16:00 05/13/24 19:20 Temperature 36.9 C 36.2 C L Pulse Rate 84 95 86 Respiratory Rate 17 20 Blood Pressure 102/57 L 102/59 L Pulse Oximetry 96 95 Oxygen Delivery 05/13/24 20:00 05/13/24 21:22 05/14/24 00:00 Temperature Pulse Rate 85 100 82 Respiratory Rate 20 Blood Pressure Pulse Oximetry 91 Oxygen Delivery Autopap 05/14/24 02:38 05/14/24 04:00 05/14/24 05:26 Temperature 36.4 C L Pulse Rate 95 84 85 Respiratory Rate 12 20 Blood Pressure 94/59 L Pulse Oximetry 91 96 Oxygen Delivery Autopap 05/14/24 08:59 Temperature Pulse Rate 73 Respiratory Rate Blood Pressure Pulse Oximetry Oxygen Delivery Intake/Output Intake/Output: Intake & Output 05/11/24 05/12/24 05/13/24 05/14/24 23:59 23:59 23:59 23:59 Intake Total 120 980 200 320 Output Total 700 1000 800 400 Balance -580 -20 -600 -80 Meds/Results Medications: Active Medications Generic Name Dose Route Start Last Admin Trade Name Freq PRN Reason Stop Dose Admin Albuterol 1 puff 05/13/24 11:35 Albuterol Sulfate (*Sp) Aerosol 1 Puff INHALATION Q4H PRN shortness of breath or wheezing Amiodarone HCl 200 mg 05/08/24 08:00 05/14/24 08:59 Amiodarone Hcl 200 Mg Tablet PO 200 mg DAILY@0800 KEATON Administration Anastrozole 1 mg 05/08/24 09:00 05/14/24 09:00 Anastrozole (*Chemo) 1 Mg Tablet PO 1 mg DAILY [facility] Administration Apixaban 5 mg 05/07/24 21:00 05/08/24 08:36 Apixaban 5 Mg Tablet PO 5 mg Q12HR [facility] Administration Atorvastatin Calcium 20 mg 05/08/24 09:00 05/14/24 09:00 Atorvastatin 20 Mg Tablet PO 20 mg DAILY [facility] Administration Dextrose 12.5 gm 05/07/24 15:28 Dextrose 50% 25 Gm/50 Ml Syringe IV PUSH PRN PRN Hypoglycemia Protocol Donepezil HCl 10 mg 05/08/24 09:00 Donepezil Hcl 10 Mg Tablet BY MOUTH DAILY KEATON Empagliflozin 25 mg 05/08/24 09:00 05/14/24 09:00 Empagliflozin 25 Mg Tablet PO 25 mg DAILY [facility] Administration Ferrous Sulfate 325 mg 05/07/24 17:00 05/14/24 09:00 Ferrous Sulfate [address] BY MOUTH 325 mg BID [facility] Administration Furosemide 20 mg 05/11/24 18:25 05/14/24 09:00 Furosemide Inj 40 Mg/4 Ml Vial IV PUSH 20 mg BID KE[facility] Administration Glucagon 1 mg 05/07/24 15:28 Glucagon For Inj 1 Mg Vial IM PRN PRN Hypoglycemia Protocol Glucose 15 gm 05/07/24 15:28 Glucose Oral Gel 15 Gm Of Glucse In 37.5 Gm Tube PO PRN PRN Hypoglycemia Protocol Dextrose 1,000 mls @ 100 mls/hr 05/07/24 15:28 Dextrose 5% 1,000 Ml IVPB PRN PRN Hypoglycemia Protocol Insulin Aspart 2 - 5 units 05/07/24 17:00 05/14/24 12:18 Insulin Aspart (*Bkc) 100 Units/Ml SUB-Q Not Given TIDWM [facility] Protocol Insulin Aspart 1 - 2 units 05/07/24 21:00 05/13/24 20:03 Insulin Aspart (*Bkc) 100 Units/Ml SUB-Q Not Given HS [facility] Protocol Levothyroxine Sodium 112 mcg 05/08/24 06:30 05/14/24 05:40 Levothyroxine Sodium 112 Mcg Tablet PO 112 mcg DAILY@0630 [facility] Administration Linezolid 600 mg 05/11/24 09:00 05/14/24 09:00 Linezolid 600 Mg Tablet PO 05/14/24 21:01 600 mg Q12HR [facility] Administration Memantine 10 mg 05/07/24 17:00 05/14/24 09:00 Memantine 10 Mg Tablet PO 10 mg BID [facility] Administration Pantoprazole Sodium 40 mg 05/09/24 21:00 05/14/24 09:00 Pantoprazole Sodium Iv 40 Mg Vial IV PUSH 40 mg Q12HR [facility] Administration Polyethylene Glycol 17 gm 05/08/24 16:30 05/14/24 09:02 Polyethylene Glycol 3350 17 Gm Powd.Pack PO Not Given QAM [facility] Potassium Chloride 20 meq 05/13/24 11:40 05/14/24 09:00 Potassium Chloride 20 Meq Packet (For Liquid) PO 20 meq BID [facility]ON Administration Sertraline HCl 200 mg 05/08/24 09:00 05/14/24 08:59 Sertraline Hcl 50 Mg Tablet PO 200 mg DAILY [facility] Administration Spironolactone 12.5 mg 05/08/24 09:00 05/14/24 09:00 Spironolactone 12.5 Mg Tablet PO 12.5 mg DAILY KEATON Administration Radiology Results: ITS Impressions Chest X-Ray 05/11/24 12:15 IMPRESSION: 1. Airspace opacities in right mid and upper lung zones and left mid and lower lung zones with interval worsening, consistent with pulmonary edema versus pneumonia. 2. Cardiomegaly. Labs Labs: Laboratory Results - last 24 hr 05/13/24 05/13/24 05/14/24 17:12 20:01 05:21 WBC 3.9 L RBC 3.31 L Hgb 9.4 L Hct 30.2 L MCV 91.2 MCH 28.4 MCHC 31.1 L RDW 16.9 H Plt Count 417 H MPV 9.6 Immature Gran % (Auto) 0.3 Neut % (Auto) 58.8 Lymph % (Auto) 22.6 [place] % (Auto) 12.9 H Eos % (Auto) 4.6 H Baso % (Auto) 0.8 Lymph # (Auto) 0.89 L [place] # (Auto) 0.5 Eos # (Auto) 0.2 Baso # (Auto) 0.0 Abs Immat Gran (auto) 0.01 Absolute Neuts (auto) 2.3 Absolute Nucleated RBC 0.000 Nucleated RBC % 0.0 Sodium 138 Potassium 3.3 L Chloride 101 Carbon Dioxide 31 H Anion Gap 6 BUN 24 H Creatinine 1.79 H Estim Creat Clear Calc 24 Estimated GFR 28 L Glucose 102 POC Capillary Glucose 111 H 107 H Calcium 8.6 Phosphorus 3.3 Magnesium 1.8 05/14/24 05/14/24 08:38 12:03 WBC RBC Hgb Hct MCV MCH MCHC RDW Plt Count MPV Immature Gran % (Auto) Neut % (Auto) Lymph % (Auto) [place] % (Auto) Eos % (Auto) Baso % (Auto) Lymph # (Auto) [place] # (Auto) Eos # (Auto) Baso # (Auto) Abs Immat Gran (auto) Absolute Neuts (auto) Absolute Nucleated RBC Nucleated RBC % Sodium Potassium Chloride Carbon Dioxide Anion Gap BUN Creatinine Estim Creat Clear Calc Estimated GFR Glucose POC Capillary Glucose 128 H 117 H Calcium Phosphorus Magnesium
[2024-05-14 17:20] LABS: Glucose Point of Care 148 mg/dl (65-105)
[2024-05-15] VITALS (11 sets, daily range): BP systolic 104–125; BP diastolic 60–68; PULSE 80–120; RESP 16–18; TEMP 36.1–36.9; O2SAT 94–98
[2024-05-15] MEDS: LEVOTHYROXINE SODIUM 112 MCG TABLET PO (05:21)
[2024-05-15 05:43] LABS: Glucose Point of Care 148 mg/dl (65-105)
[2024-05-15 05:45] LABS: Basophils Percent Auto 0.8 % (0.2-1.2); Eosinophils Absolute Auto 0.2 K/mm3 (0-0.3); Eosinophils Percent Auto 5.3 % (0-4.4); Hemoglobin 9.2 g/dL (12.0-15.0); Immature Granulocyte Absolute 0.02 K/mm3 (0.00-0.031); Immature Granulocyte Percent A 0.5 % (0-0.5); Lymphocytes Absolute Auto 1.32 K/mm3 (0.9-3.2); Lymphocytes Percent Auto 33.4 % (18.3-44.2); Mean Corpuscular HGB Conc 30.7 g/dl (32-36); Mean Corpuscular Hemoglobin 27.9 pg (26-34); Mean Corpuscular Volume 90.9 fl (80-100); Mean Platelet Volume 9.6 fl (7.4-10.4); Monocytes Absolute Auto 0.5 K/mm3 (0.1-0.6); Monocytes Percent Auto 12.9 % (2.6-8.5); Neutrophils Absolute Auto 1.9 K/mm3 (1.3-6.7); Neutrophils Percent Auto 47.1 % (45.5-73.1); Platelet Count Result 426 k/mm3 (150-375); Red Cell Distribution Width 16.9 % (11.5-14.5)
[2024-05-15 06:05] LABS: Anion Gap 4 mmol/L (4-12); Blood Urea Nitrogen 25 mg/dL (7-17); Calcium 8.6 mg/dL (8.4-10.2); Carbon Dioxide 33 mmol/L (22-30); Chloride 99 mmol/L (98-107); Estimated CRCL calculation 23 ml/min; Estimated Glomerular Filt Rate 25; Glucose 103 mg/dL (65-110); Potassium 3.5 mmol/L (3.4-5.0); Sodium 136 mmol/L (137-145)
[2024-05-15 08:41] LABS: Glucose Point of Care 103 mg/dl (65-105)
[2024-05-15] MEDS: AMIODARONE HCL 200 MG TABLET PO (08:49)
[2024-05-15] MEDS: ATORVASTATIN 20 MG TABLET PO (08:49)
[2024-05-15] MEDS: PANTOPRAZOLE SODIUM IV 40 MG VIAL IV PUSH ×2 (08:49→20:29)
[2024-05-15] MEDS: MEMANTINE 10 MG TABLET PO ×2 (08:49→17:20)
[2024-05-15] MEDS: EMPAGLIFLOZIN 25 MG TABLET PO (08:49)
[2024-05-15] MEDS: FERROUS SULFATE 325 MG TABLET DR BY MOUTH ×2 (08:49→17:20)
[2024-05-15] MEDS: FUROSEMIDE 40 MG TABLET PO (08:49)
[2024-05-15] MEDS: POTASSIUM CHLORIDE 20 MEQ PACKET (FOR LIQUID) PO ×2 (08:49→17:20)
[2024-05-15] MEDS: SPIRONOLACTONE 12.5 MG TABLET PO (08:49)
[2024-05-15] MEDS: ANASTROZOLE (*CHEMO) 1 MG TABLET PO (08:50)
[2024-05-15] MEDS: SERTRALINE HCL 50 MG TABLET 200 MG PO (08:50)
--- NOTE | 2024-05-15 11:23 | PM.IMPN ---
Progress Note: A&P Assessment and Plan (1) Cardiac arrest: Code(s): I46.9 - Cardiac arrest, cause unspecified Status: Acute (2) Shock: Code(s): R57.9 - Shock, unspecified Status: Acute (3) Decubitus ulcer: Code(s): L89.90 - Pressure ulcer of unspecified site, unspecified stage Status: Acute (4) Electrolyte abnormality: Code(s): E87.8 - Other disorders of electrolyte and fluid balance, not elsewhere classified Status: Acute (5) Acute kidney injury: Code(s): N17.9 - Acute kidney failure, unspecified Status: Acute (6) Acute kidney injury superimposed on CKD: Code(s): N17.9 - Acute kidney failure, unspecified; N18.9 - Chronic kidney disease, unspecified Status: Acute (7) Essential (primary) hypertension: Code(s): I10 - Essential (primary) hypertension Status: Chronic (8) Acute hypoxemic respiratory failure: Code(s): J96.01 - Acute respiratory failure with hypoxia Status: Acute (9) Pneumonia: Qualifiers: Laterality: left Lung location: lower lobe of lung Pneumonia type: due to unspecified organism Qualified Code(s): J18.9 - Pneumonia, unspecified organism Code(s): J18.9 - Pneumonia, unspecified organism Status: Acute Plan Acute hypoxemic respiratory failure From pneumonia. Chest x-ray reviewed. Rocephin azithromycin. Blood and sputum culture MRSA positive Received Rocephin azithromycin IV since admission Changed to cefdinir and azithromycin p.o. per ID pharmacist recommendation Acute on chronic Systolic CHF, EF 20-25% on LifeVest Home medication medications: Jardiance 25 mg daily p.o., furosemide 20 mg b.i.d. p.o., spironolactone 12.5 mg daily p.o. Acute systolic heart failure provide furosemide 40 mg IV push once 05/11 Elevated BNP and chest x-ray 05/11: Airspace opacity in right mid and upper lobe zone and left mid and lower low zone with interval worsening, consistent with pulmonary edema and pneumonia Start Lasix 20 mg b.i.d. IV push 05/11 Consult hearing care professional for evaluation treatment Patient feels better today, cough improving, dyspnea is improving Received IV Lasix 20 mg b.i.d. IV push Changed to Lasix 40 mg daily p.o. per hearing care professional 06/14 now no sign of overload, will c/w oral lasix today Pneumonia Chest x-ray reviewed, showed left basilar pneumonia Patient has productive cough and phlegm Finish antibiotics on 05/13 Antibiotics see above Finished antibiotic treatment Symptomatic Anemia Hemoglobin 7.8 with thrombocytosis iron panel: Iron 26, saturation 15, suggesting iron deficient anemia FOBT pending, Patient on blood thinner, possible GI bleeding GI consulted. Monitor H&H. Hemoglobin 7.0, hb 9.2 Transfuse 1 pack RBC, Hemoglobin is trending down slowly Guaiac is positive KURT on CPAP Continue CPAP. Paroxysmal atrial fibrillation hold Eliquis,possible GIB hb is tending down titrate rate control. CKD stage stable Creatinine trending up slightly Continue monitor BMP daily during IV diuretic medication slightly up COPD continue home bronchodilator Hypertension titrate home medications with clinical course. Type 2 diabetes Sliding scale insulin with Accu-Cheks adjust with clinical course. DVT/PE risk of gib CKD stage 3 Creatinine stable DVT prophylaxis scd DNR Patient denies depression and suicidal ideation. Patient has general weakness. Patient has a poor intake. Consult PT OT social human services assistants for evaluation and assisting placement. Patient may benefit from rehab in the care home. may discharge patient tomorrow Subjective Date/time seen: 05/15/24 11:23 Interval history: I saw examined patient in present of her bother today. Patient was sitting in a chair comfortably. She denies dyspnea or cough Patient does have appetite, and appetite is better today. Patient denies depression, suicide ideation. Exam Narrative: GENERAL: pleasant Frail, in no acute distress. Well-nourished. - EYES: EOMI. Anicteric. - HENT: Moist mucous membranes. - LUNGS: Scattered crackles bilateral, - CARDIOVASCULAR: Regular rate and rhythm. No murmur. + JVD. - ABDOMEN: Soft, non-tender and non-distended. No palpable masses. - EXTREMITIES: No edema. Peripheral pulses 2+. Non-tender. - NEUROLOGIC: No focal neurological deficits. CN II-XII grossly intact. - PSYCHIATRIC: Awake, Alert and oriented x 3. Appropriate mood and affect. - SKIN: No rashes or lesions. Warm. - LYMPH: No cervical lymphadenopathy. Objective Data Vital Signs Vital Signs: Vital Signs - 24 hr 05/14/24 12:00 05/14/24 16:00 05/14/24 16:00 Temperature 97.5 F L Pulse Rate 99 105 H 108 H Respiratory Rate 18 Blood Pressure 113/70 Pulse Oximetry 92 Oxygen Delivery 05/14/24 20:00 05/14/24 20:00 05/14/24 20:33 Temperature 98.1 F Pulse Rate 103 H 96 Respiratory Rate 16 Blood Pressure 112/69 Pulse Oximetry 93 Oxygen Delivery Room Air 05/15/24 00:00 05/15/24 04:00 05/15/24 06:00 Temperature 98.4 F Pulse Rate 81 84 81 Respiratory Rate 18 Blood Pressure 125/68 Pulse Oximetry 98 Oxygen Delivery 05/15/24 08:00 05/15/24 08:49 Temperature Pulse Rate 80 81 Respiratory Rate Blood Pressure Pulse Oximetry Oxygen Delivery Intake/Output Intake/Output: Intake & Output 05/12/24 05/13/24 05/14/24 05/15/24 23:59 23:59 23:59 23:59 Intake Total 980 200 540 240 Output Total 1000 800 400 Balance -20 -600 140 240 Meds/Results Medications: Active Medications Generic Name Dose Route Start Last Admin Trade Name Freq PRN Reason Stop Dose Admin Albuterol 1 puff 05/13/24 11:35 Albuterol Sulfate (*Sp) Aerosol 1 Puff INHALATION Q4H PRN shortness of breath or wheezing Amiodarone HCl 200 mg 05/08/24 08:00 05/15/24 08:49 Amiodarone Hcl 200 Mg Tablet PO 200 mg DAILY@0800 [facility] Administration Anastrozole 1 mg 05/08/24 09:00 05/15/24 08:50 Anastrozole (*Chemo) 1 Mg Tablet PO 1 mg DAILY [facility] Administration Apixaban 5 mg 05/07/24 21:00 05/08/24 08:36 Apixaban 5 Mg Tablet PO 5 mg Q12HR [facility] Administration Atorvastatin Calcium 20 mg 05/08/24 09:00 05/15/24 08:49 Atorvastatin 20 Mg Tablet PO 20 mg DAILY [facility] Administration Dextrose 12.5 gm 05/07/24 15:28 Dextrose 50% 25 Gm/50 Ml Syringe IV PUSH PRN PRN Hypoglycemia Protocol Donepezil HCl 10 mg 05/08/24 09:00 Donepezil Hcl 10 Mg Tablet BY MOUTH DAILY [facility] Empagliflozin 25 mg 05/08/24 09:00 05/15/24 08:49 Empagliflozin 25 Mg Tablet PO 25 mg DAILY [facility] Administration Ferrous Sulfate 325 mg 05/07/24 17:00 05/15/24 08:49 Ferrous Sulfate [address] BY MOUTH 325 mg BID [facility] Administration Furosemide 40 mg 05/15/24 09:00 05/15/24 08:49 Furosemide 40 Mg Tablet PO 40 mg DAILY [facility] Administration Glucagon 1 mg 05/07/24 15:28 Glucagon For Inj 1 Mg Vial IM PRN PRN Hypoglycemia Protocol Glucose 15 gm 05/07/24 15:28 Glucose Oral Gel 15 Gm Of Glucse In 37.5 Gm Tube PO PRN PRN Hypoglycemia Protocol Dextrose 1,000 mls @ 100 mls/hr 05/07/24 15:28 Dextrose 5% 1,000 Ml IVPB PRN PRN Hypoglycemia Protocol Insulin Aspart 2 - 5 units 05/07/24 17:00 05/15/24 09:04 Insulin Aspart (*Bkc) 100 Units/Ml SUB-Q Not Given TIDWM [facility] Protocol Insulin Aspart 1 - 2 units 05/07/24 21:00 05/14/24 20:28 Insulin Aspart (*Bkc) 100 Units/Ml SUB-Q Not Given HS [facility] Protocol Levothyroxine Sodium 112 mcg 05/08/24 06:30 05/15/24 05:21 Levothyroxine Sodium 112 Mcg Tablet PO 112 mcg DAILY@0630 [facility] Administration Memantine 10 mg 05/07/24 17:00 05/15/24 08:49 Memantine 10 Mg Tablet PO 10 mg BID [facility] Administration Pantoprazole Sodium 40 mg 05/09/24 21:00 05/15/24 08:49 Pantoprazole Sodium Iv 40 Mg Vial IV PUSH 40 mg Q12HR [facility] Administration Polyethylene Glycol 17 gm 05/08/24 16:30 05/15/24 09:05 Polyethylene Glycol 3350 17 Gm Powd.Pack PO Not Given QAM [facility] Potassium Chloride 20 meq 05/13/24 11:40 05/15/24 08:49 Potassium Chloride 20 Meq Packet (For Liquid) PO 20 meq BID [facility] Administration Sertraline HCl 200 mg 05/08/24 09:00 05/15/24 08:50 Sertraline Hcl 50 Mg Tablet PO 200 mg DAILY [facility] Administration Spironolactone 12.5 mg 05/08/24 09:00 05/15/24 08:49 Spironolactone 12.5 Mg Tablet PO 12.5 mg DAILY [facility] Administration Radiology Results: ITS Impressions Chest X-Ray 05/11/24 12:15 IMPRESSION: 1. Airspace opacities in right mid and upper lung zones and left mid and lower lung zones with interval worsening, consistent with pulmonary edema versus pneumonia. 2. Cardiomegaly. Labs Labs: Laboratory Results - last 24 hr 05/14/24 05/14/24 05/14/24 12:03 17:12 20:16 WBC RBC Hgb Hct MCV MCH MCHC RDW Plt Count MPV Immature Gran % (Auto) Neut % (Auto) Lymph % (Auto) [place] % (Auto) Eos % (Auto) Baso % (Auto) Lymph # (Auto) [place] # (Auto) Eos # (Auto) Baso # (Auto) Abs Immat Gran (auto) Absolute Neuts (auto) Absolute Nucleated RBC Nucleated RBC % Sodium Potassium Chloride Carbon Dioxide Anion Gap BUN Creatinine Estim Creat Clear Calc Estimated GFR Glucose POC Capillary Glucose 117 H 148 H 148 H Calcium 05/15/24 05/15/24 05:33 08:32 WBC 4.0 L RBC 3.30 L Hgb 9.2 L Hct 30.0 L MCV 90.9 MCH 27.9 MCHC 30.7 L RDW 16.9 H Plt Count 426 H MPV 9.6 Immature Gran % (Auto) 0.5 Neut % (Auto) 47.1 Lymph % (Auto) 33.4 [place] % (Auto) 12.9 H Eos % (Auto) 5.3 H Baso % (Auto) 0.8 Lymph # (Auto) 1.32 [place] # (Auto) 0.5 Eos # (Auto) 0.2 Baso # (Auto) 0.0 Abs Immat Gran (auto) 0.02 Absolute Neuts (auto) 1.9 Absolute Nucleated RBC 0.000 Nucleated RBC % 0.0 Sodium 136 L Potassium 3.5 Chloride 99 Carbon Dioxide 33 H Anion Gap 4 BUN 25 H Creatinine 1.94 H Estim Creat Clear Calc 23 Estimated GFR 25 L Glucose 103 POC Capillary Glucose 103 Calcium 8.6
[2024-05-15 11:54] LABS: Glucose Point of Care 120 mg/dl (65-105)
[2024-05-15] MEDS: INSULIN ASPART (*BKC) 100 UNITS/ML SUB-Q (20:28)
[2024-05-15 21:33] LABS: Glucose Point of Care 234 mg/dl (65-105)
[2024-05-16] VITALS (8 sets, daily range): BP systolic 102; BP diastolic 58–65; PULSE 69–102; RESP 16–18; TEMP 36.1–36.3; O2SAT 94–100
[2024-05-16] MEDS: LEVOTHYROXINE SODIUM 112 MCG TABLET PO (05:49)
[2024-05-16 06:21] LABS: Potassium 3.6 mmol/L (3.4-5.0)
[2024-05-16 07:57] LABS: Glucose Point of Care 110 mg/dl (65-105)
--- NOTE | 2024-05-16 09:00 | P.PNIM_ITS ---
Progress Note: A&P Assessment and Plan (1) Cardiac arrest: Code(s): I46.9 - Cardiac arrest, cause unspecified Status: Acute (2) Shock: Code(s): R57.9 - Shock, unspecified Status: Acute (3) Decubitus ulcer: Code(s): L89.90 - Pressure ulcer of unspecified site, unspecified stage Status: Acute (4) Electrolyte abnormality: Code(s): E87.8 - Other disorders of electrolyte and fluid balance, not elsewhere classified Status: Acute (5) Acute kidney injury: Code(s): N17.9 - Acute kidney failure, unspecified Status: Acute (6) Acute kidney injury superimposed on CKD: Code(s): N17.9 - Acute kidney failure, unspecified; N18.9 - Chronic kidney disease, unspecified Status: Acute (7) Essential (primary) hypertension: Code(s): I10 - Essential (primary) hypertension Status: Chronic (8) Acute hypoxemic respiratory failure: Code(s): J96.01 - Acute respiratory failure with hypoxia Status: Acute (9) Pneumonia: Qualifiers: Laterality: left Lung location: lower lobe of lung Pneumonia type: due to unspecified organism Qualified Code(s): J18.9 - Pneumonia, unspecified organism Code(s): J18.9 - Pneumonia, unspecified organism Status: Acute Plan Acute hypoxemic respiratory failure From pneumonia. Chest x-ray reviewed. Rocephin azithromycin. Blood and sputum culture MRSA positive Received Rocephin azithromycin IV since admission Changed to cefdinir and azithromycin p.o. per ID pharmacist recommendation. Completed treatment Acute on chronic Systolic CHF, EF 20-25% on LifeVest Home medication medications: Jardiance 25 mg daily p.o., furosemide 20 mg b.i.d. p.o., spironolactone 12.5 mg daily p.o. Acute systolic heart failure provide furosemide 40 mg IV push once 05/11 Elevated BNP and chest x-ray 05/11: Airspace opacity in right mid and upper lobe zone and left mid and lower low zone with interval worsening, consistent with pulmonary edema and pneumonia Start Lasix 20 mg b.i.d. IV push 05/11 Consult de icer element winder for evaluation treatment Patient feels better today, cough improving, dyspnea is improving Received IV Lasix 20 mg b.i.d. IV push Changed to Lasix 40 mg daily p.o. per de icer element winder 06/14 now no sign of overload, will c/w oral lasix 06/15 Item metoprolol 12.5 mg b.i.d. p.o. per de icer element winder recommendation, blood pressure on the lower side may add Entresto per de icer element winder in the office Pneumonia Chest x-ray reviewed, showed left basilar pneumonia Patient has productive cough and phlegm Finish antibiotics on 05/13 Antibiotics see above Finished antibiotic treatment Symptomatic Anemia Hemoglobin 7.8 with thrombocytosis iron panel: Iron 26, saturation 15, suggesting iron deficient anemia FOBT pending, Patient on blood thinner, possible GI bleeding GI consulted. Monitor H&H. Hemoglobin 7.0, hb 9.2 Transfuse 1 pack RBC, Hemoglobin is stable Guaiac is positive Changed to Protonix 40 mg b.i.d. p.o., carpet 1 g a.c. q.h.s. Continue hold Eliquis, may resume per de icer element winder GI in office KURT on CPAP Continue CPAP. Paroxysmal atrial fibrillation hold Eliquis,possible GIB hb is is stable now titrate rate control. CKD stage stable Creatinine trending up slightly Continue monitor BMP daily during IV diuretic medication slightly up COPD continue home bronchodilator Hypertension titrate home medications with clinical course. Type 2 diabetes Sliding scale insulin with Accu-Cheks adjust with clinical course. DVT/PE risk of gib CKD stage 3 Creatinine stable DVT prophylaxis scd DNR Patient denies depression and suicidal ideation. Patient has general weakness. Patient has a poor intake. Consult PT OT social science research assistant for evaluation and assisting placement. Patient may benefit from rehab in the halfway. may discharge patient to SNF today Subjective Date/time seen: 05/16/24 09:00 Interval history: I saw examined patient in present of her bother today. Patient was sitting in a chair comfortably. She denies dyspnea or cough appetite is better today. Patient feels comfortable, patient states she enjoys her life, Exam Narrative: GENERAL: pleasant Frail, in no acute distress. Well-nourished. - EYES: EOMI. Anicteric. - HENT: Moist mucous membranes. - LUNGS: Scattered crackles bilateral, improves significantly - CARDIOVASCULAR: Regular rate and rhyth m. No murmur. + JVD. - ABDOMEN: Soft, non-tender and non-dist ended. No palpable masses. - EXTREMITIES: No edema. Peripheral puls es 2+. Non-tender. - NEUROLOGIC: No focal neurological defi cits. CN II-XII grossly intact. - PSYCHIATRIC: Awake, Alert and oriented x 3. Appropriate mood and affect. - SKIN: No rashes or lesions. Warm. - LYMPH: No cervical lymphadenopathy. Objective Data Vital Signs Vital Signs: Vital Signs - 24 hr 05/15/24 12:05 05/15/24 14:00 05/15/24 16:00 Temperature 98.3 F Pulse Rate 102 H 120 H 118 H Respiratory Rate 16 Blood Pressure 109/60 Pulse Oximetry 96 Oxygen Delivery 05/15/24 20:00 05/15/24 20:00 05/15/24 20:57 Temperature 97.0 F L Pulse Rate 96 103 H Respiratory Rate 16 Blood Pressure 104/60 Pulse Oximetry 94 Oxygen Delivery Room Air 05/15/24 22:52 05/16/24 00:00 05/16/24 02:11 Temperature Pulse Rate 101 H 69 98 Respiratory Rate 16 18 Blood Pressure Pulse Oximetry 94 94 Oxygen Delivery Autopap Autopap 05/16/24 04:00 05/16/24 06:00 Temperature 97.0 F L Pulse Rate 70 70 Respiratory Rate 18 Blood Pressure 102/65 Pulse Oximetry 100 Oxygen Delivery Intake/Output Intake/Output: Intake & Output 05/13/24 05/14/24 05/15/24 05/16/24 23:59 23:59 23:59 23:59 Intake Total 200 540 960 440 Output Total 800 400 Balance -600 140 960 440 Meds/Results Medications: Active Medications Generic Name Dose Route Start Last Admin Trade Name Freq PRN Reason Stop Dose Admin Albuterol 1 puff 05/13/24 11:35 Albuterol Sulfate (*Sp) Aerosol 1 Puff INHALATION Q4H PRN shortness of breath or wheezing Amiodarone HCl 200 mg 05/08/24 08:00 05/15/24 08:49 Amiodarone Hcl 200 Mg Tablet PO 200 mg DAILY@0800 [facility] Administration Anastrozole 1 mg 05/08/24 09:00 05/15/24 08:50 Anastrozole (*Chemo) 1 Mg Tablet PO 1 mg DAILY [facility] Administration Apixaban 5 mg 05/07/24 21:00 05/08/24 08:36 Apixaban 5 Mg Tablet PO 5 mg Q12HR [facility] Administration Atorvastatin Calcium 20 mg 05/08/24 09:00 05/15/24 08:49 Atorvastatin 20 Mg Tablet PO 20 mg DAILY [facility] Administration Dextrose 12.5 gm 05/07/24 15:28 Dextrose 50% 25 Gm/50 Ml Syringe IV PUSH PRN PRN Hypoglycemia Protocol Donepezil HCl 10 mg 05/08/24 09:00 Donepezil Hcl 10 Mg Tablet BY MOUTH DAILY [facility] Empagliflozin 25 mg 05/08/24 09:00 05/15/24 08:49 Empagliflozin 25 Mg Tablet PO 25 mg DAILY [facility] Administration Ferrous Sulfate 325 mg 05/07/24 17:00 05/15/24 17:20 Ferrous Sulfate [address] BY MOUTH 325 mg BID [facility] Administration Furosemide 40 mg 05/15/24 09:00 05/15/24 08:49 Furosemide 40 Mg Tablet PO 40 mg DAILY [facility] Administration Glucagon 1 mg 05/07/24 15:28 Glucagon For Inj 1 Mg Vial IM PRN PRN Hypoglycemia Protocol Glucose 15 gm 05/07/24 15:28 Glucose Oral Gel 15 Gm Of Glucse In 37.5 Gm Tube PO PRN PRN Hypoglycemia Protocol Dextrose 1,000 mls @ 100 mls/hr 05/07/24 15:28 Dextrose 5% 1,000 Ml IVPB PRN PRN Hypoglycemia Protocol Insulin Aspart 2 - 5 units 05/07/24 17:00 05/15/24 18:19 Insulin Aspart (*Bkc) 100 Units/Ml SUB-Q Not Given TIDWM [facility] Protocol Insulin Aspart 1 - 2 units 05/07/24 21:00 05/15/24 20:28 Insulin Aspart (*Bkc) 100 Units/Ml SUB-Q 1 units HS [facility] Administration Protocol Levothyroxine Sodium 112 mcg 05/08/24 06:30 05/16/24 05:49 Levothyroxine Sodium 112 Mcg Tablet PO 112 mcg DAILY@0630 [facility] Administration Memantine 10 mg 05/07/24 17:00 05/15/24 17:20 Memantine 10 Mg Tablet PO 10 mg BID [facility] Administration Pantoprazole Sodium 40 mg 05/09/24 21:00 05/15/24 20:29 Pantoprazole Sodium Iv 40 Mg Vial IV PUSH 40 mg Q12HR [facility] Administration Polyethylene Glycol 17 gm 05/08/24 16:30 05/15/24 09:05 Polyethylene Glycol 3350 17 Gm Powd.Pack PO Not Given QAM [facility] Potassium Chloride 20 meq 05/13/24 11:40 05/15/24 17:20 Potassium Chloride 20 Meq Packet (For Liquid) PO 20 meq BID [facility] Administration Sertraline HCl 200 mg 05/08/24 09:00 05/15/24 08:50 Sertraline Hcl 50 Mg Tablet PO 200 mg DAILY [facility] Administration Spironolactone 12.5 mg 05/08/24 09:00 05/15/24 08:49 Spironolactone 12.5 Mg Tablet PO 12.5 mg DAILY [facility] Administration Radiology Results: ITS Impressions Chest X-Ray 05/11/24 12:15 IMPRESSION: 1. Airspace opacities in right mid and upper lung zones and left mid and lower lung zones with interval worsening, consistent with pulmonary edema versus pneumonia. 2. Cardiomegaly. Labs Labs: Laboratory Results - last 24 hr 05/15/24 05/15/24 05/16/24 11:40 20:11 06:00 Potassium 3.6 POC Capillary Glucose 120 H 234 H 05/16/24 07:49 Potassium POC Capillary Glucose 110 H
--- NOTE | 2024-05-16 09:13 | PM.DS ---
DS: Admitting Diagnosis Discharge Date 05/16 Admitting Diagnosis (1) Cardiac arrest: Code(s): I46.9 - Cardiac arrest, cause unspecified Status: Acute (2) Shock: Code(s): R57.9 - Shock, unspecified Status: Acute (3) Decubitus ulcer: Code(s): L89.90 - Pressure ulcer of unspecified site, unspecified stage Status: Acute (4) Electrolyte abnormality: Code(s): E87.8 - Other disorders of electrolyte and fluid balance, not elsewhere classified Status: Acute (5) Acute kidney injury: Code(s): N17.9 - Acute kidney failure, unspecified Status: Acute (6) Acute kidney injury superimposed on CKD: Code(s): N17.9 - Acute kidney failure, unspecified; N18.9 - Chronic kidney disease, unspecified Status: Acute (7) Essential (primary) hypertension: Code(s): I10 - Essential (primary) hypertension Status: Chronic (8) Acute hypoxemic respiratory failure: Code(s): J96.01 - Acute respiratory failure with hypoxia Status: Acute (9) Pneumonia: Qualifiers: Laterality: left Lung location: lower lobe of lung Pneumonia type: due to unspecified organism Qualified Code(s): J18.9 - Pneumonia, unspecified organism Code(s): J18.9 - Pneumonia, unspecified organism Status: Acute DS: Discharge Diagnosis Discharge Diagnosis (1) Cardiac arrest: Code(s): I46.9 - Cardiac arrest, cause unspecified Status: Acute (2) Shock: Code(s): R57.9 - Shock, unspecified Status: Acute (3) Decubitus ulcer: Code(s): L89.90 - Pressure ulcer of unspecified site, unspecified stage Status: Acute (4) Electrolyte abnormality: Code(s): E87.8 - Other disorders of electrolyte and fluid balance, not elsewhere classified Status: Acute (5) Acute kidney injury: Code(s): N17.9 - Acute kidney failure, unspecified Status: Acute (6) Acute kidney injury superimposed on CKD: Code(s): N17.9 - Acute kidney failure, unspecified; N18.9 - Chronic kidney disease, unspecified Status: Acute (7) Essential (primary) hypertension: Code(s): I10 - Essential (primary) hypertension Status: Chronic (8) Acute hypoxemic respiratory failure: Code(s): J96.01 - Acute respiratory failure with hypoxia Status: Acute (9) Pneumonia: Qualifiers: Laterality: left Lung location: lower lobe of lung Pneumonia type: due to unspecified organism Qualified Code(s): J18.9 - Pneumonia, unspecified organism Code(s): J18.9 - Pneumonia, unspecified organism Status: Acute DS: Summary Hospital Course Hospital Course: Per H&P: 74 y/o F presents here with hypotension with PMH of hyponatremia, CKD stage 3, anemia of chronic disease, asthma-COPD overlap, left breast cancer s/p chemotherapy and mastectomy in 2018/2019, type 2 diabetes, DVT, HLD, HTN, hypothyroidism, KURT on CPAP, PE, paroxysmal AFib, peptic ulcer disease, and rheumatoid arthritis who presented to the ER on account of shortness of breath and cough. Patient was lethargic and provide updated scans history, that she has been coughing the past 2 days with worsening shortness of breath. No oxygen at home. Patient is on LifeVest however did not noted that the batteries were . Denies any chest no vomiting, no abdominal pain no diarrhea no dysuria no focal symptoms. ER evaluation notable for vital signs blood pressure 100/55, saturating 97% on 2 L oxygen. Labs notable for hemoglobin 7.8, platelets 542, creatinine 1.55. Chest x-ray showed possible with changes which suggestive pleural thickening the left lung base laterally. Patient was started on antibiotics prior to admission. The following med issues have been addressed during hospitalization Acute hypoxemic respiratory failure From pneumonia. Chest x-ray reviewed. Rocephin azithromycin. Blood and sputum culture MRSA positive Received Rocephin azithromycin IV since admission Changed to cefdinir and azithromycin p.o. per ID pharmacist recommendation. Completed treatment Acute on chronic Systolic CHF, EF 20-25% on LifeVest Home medication medications: Jardiance 25 mg daily p.o., furosemide 20 mg b.i.d. p.o., spironolactone 12.5 mg daily p.o. Acute systolic heart failure provide furosemide 40 mg IV push once 05/11 Elevated BNP and chest x-ray 05/11: Airspace opacity in right mid and upper lobe zone and left mid and lower low zone with interval worsening, consistent with pulmonary edema and pneumonia Start Lasix 20 mg b.i.d. IV push 05/11 Consult oversize load pilot escort for evaluation treatment Patient feels better today, cough improving, dyspnea is improving Received IV Lasix 20 mg b.i.d. IV push Changed to Lasix 40 mg daily p.o. per oversize load pilot escort 06/14 now no sign of overload, will c/w oral lasix 06/15 Item metoprolol 12.5 mg b.i.d. p.o. per oversize load pilot escort recommendation, blood pressure on the lower side may add Entresto per oversize load pilot escort in the office Pneumonia Chest x-ray reviewed, showed left basilar pneumonia Patient has productive cough and phlegm Finish antibiotics on 05/13 Antibiotics see above Finished antibiotic treatment Symptomatic Anemia Hemoglobin 7.8 with thrombocytosis iron panel: Iron 26, saturation 15, suggesting iron deficient anemia FOBT pending, Patient on blood thinner, possible GI bleeding GI consulted. Monitor H&H. Hemoglobin 7.0, hb 9.2 Transfuse 1 pack RBC, Hemoglobin is stable Guaiac is positive Changed to Protonix 40 mg b.i.d. p.o., carpet 1 g a.c. q.h.s. Continue hold Eliquis, may resume per oversize load pilot escort GI in office KURT on CPAP Continue CPAP. Paroxysmal atrial fibrillation hold Eliquis,possible GIB hb is is stable now titrate rate control. CKD stage stable Creatinine trending up slightly Continue monitor BMP daily during IV diuretic medication slightly up COPD continue home bronchodilator Hypertension titrate home medications with clinical course. Type 2 diabetes Sliding scale insulin with Accu-Cheks adjust with clinical course. DVT/PE risk of gib CKD stage 3 Creatinine stable DVT prophylaxis scd DNR Patient denies depression and suicidal ideation. Patient has general weakness. Patient has a poor intake. pt states she enjoys her life. Consult PT OT social worker school for evaluation and assisting placement. Patient may benefit from rehab in the long-term. may discharge patient to SNF today Time Spent with Patient Time attestation: Total time spent providing and/or coordinating discharge services: Exam Narrative: GENERAL: pleasant Frail, in no acute distress. Well-nourished. - EYES: EOMI. Anicteric. - HENT: Moist mucous membranes. - LUNGS: Scattered crackles bilateral, improves significantly - CARDIOVASCULAR: Regular rate and rhythm. No murmur. + JVD. - ABDOMEN: Soft, non-tender and non-distended. No palpable masses. - EXTREMITIES: No edema. Peripheral pulses 2+. Non-tender. - NEUROLOGIC: No focal neurological deficits. CN II-XII grossly intact. - PSYCHIATRIC: Awake, Alert and oriented x 3. Appropriate mood and affect. - SKIN: No rashes or lesions. Warm. - LYMPH: No cervical lymphadenopathy. DS: Data Data Completed and Pending Labs on day of discharge: Labs from last 24 hours 05/16/24 05/16/24 05/15/24 07:49 06:00 20:11 Potassium 3.6 POC Capillary Glucose 110 H 234 H 05/15/24 11:40 Potassium POC Capillary Glucose 120 H Discharge Plan Discharge Attending physician on discharge: Ganesh Rodarte Consulting providers: Jerod Morris Deepak Discharging Clinician: Ganesh Rodarte Anticipated Discharge Date/Time: 05/16/24 09:03 Patient Disposition: SNF Activity: as tolerated Diet: as tolerated and heart healthy Patient Language: Yi Stand Alone Forms: General Discharge Information Follow-up/Referrals: Bryan Valiente MD [Primary Care Provider] - (See primary doctor in 1 week) Discharge Medications: New furosemide 40 mg Tablet 40 mg PO DAILY Qty: 60 0RF pantoprazole [Protonix] 40 mg tablet,delayed release (DR/EC) 40 mg PO BID Qty: 60 0RF sucralfate [Carafate] 1 gram tablet 1 g PO ACHS Qty: 120 0RF metoprolol tartrate 25 mg tablet 12.5 mg PO BID Qty: 60 0RF Continued (DME) blood-glucose meter [Accu-Chek Guide Glucose Meter] Misc See Rx Instructions .Route Qty: 1 0RF Rx Instructions: use to check BID glucose (DME) Mepilex Border Sacrum 9.2 X 9.2 bandage See Rx Instructions .Route Qty: 5 1RF Rx Instructions: apply to cover area of breakdown, changing q72 hours or prn albuterol sulfate [ProAir HFA] 90 mcg/actuation HFA aerosol inhaler 1 inh INHALATION Q4H PRN (Reason: shortness of breath or wheezing) Qty: 6.7 3RF sertraline 100 mg tablet 200 mg PO DAILY cyanocobalamin (vitamin B-12) [Vitamin B-12] 1,000 mcg tablet 1,000 mcg PO DAILY spironolactone 25 mg tablet 12.5 mg PO DAILY ferrous sulfate [FeroSul] 325 mg (65 mg iron) tablet 325 mg PO BID memantine 10 mg tablet 10 mg PO BID atorvastatin 20 mg Tablet 20 mg PO DAILY Qty: 30 1RF amiodarone [Pacerone] 200 mg Tablet 200 mg PO DAILY@0800 Qty: 30 1RF aspirin 81 mg Tablet,Delayed Release (Dr/Ec) 81 mg PO QAM Qty: 60 0RF cholecalciferol (vitamin D3) 50 mcg (2,000 unit) capsule 6,000 unit PO DAILY polyethylene glycol 3350 [Miralax] 17 gram powder in packet 17 g PO DAILY acetaminophen 325 mg capsule 650 mg PO Q4H PRN (Reason: fever or pain) benzonatate 200 mg capsule 200 mg PO BID PRN (Reason: cough) levothyroxine 112 mcg tablet 112 mcg PO DAILY Qty: 30 0RF Jardiance 25 mg tablet 25 mg PO DAILY Qty: 60 0RF (DME) blood sugar diagnostic [Contour Next Test Strips] Strip See Rx Instructions .ROUTE .MEDSUPPLY Qty: 100 0RF Rx Instructions: check glucose tid for diabetes (DME) Blood Glucose Test Strip See Rx Instructions .MEDSUPPLY Qty: 100 0RF Rx Instructions: Use QAC and QHS with SSI (DME) lancets [Lancets, Super Thin] Misc See Rx Instructions .ROUTE .MEDSUPPLY Qty: 100 0RF Rx Instructions: As directed (DME) hydrocolloid dressing [DuoDERM CGF Border Dressing] 4 X 4 bandage See Rx Instructions .ROUTE .MEDSUPPLY Qty: 20 0RF Rx Instructions: As directed (DME) silicone,dressing-foam bandage 3 X 3 bandage See Rx Instructions .Route Qty: 10 1RF Rx Instructions: As directed for application to buttock wound potassium chloride 20 mEq tablet extended release 20 meq PO DAILY Qty: 30 3RF anastrozole 1 mg tablet See Rx Instructions .ROUTE .COMPLEX Qty: 30 3RF Dose Instruction: TAKE ONE TABLET BY MOUTH DAILY Rx Instructions: TAKE ONE TABLET BY MOUTH DAILY donepezil 10 mg tablet See Rx Instructions .ROUTE .COMPLEX Qty: 90 1RF Dose Instruction: TAKE ONE TABLET BY MOUTH DAILY Rx Instructions: TAKE ONE TABLET BY MOUTH DAILY Discontinued Eliquis 5 mg tablet 5 mg PO Q12HR Qty: 60 3RF furosemide 20 mg tablet 20 mg PO BID Qty: 60 0RF Date of admission: 05/09/24 09:09 Primary Care Provider: Bryan Valiente Admitting Provider: Mora Britton Attending physician on admission: Mora Britton Condition: Stable
[2024-05-16] MEDS: ANASTROZOLE (*CHEMO) 1 MG TABLET PO (09:16)
[2024-05-16] MEDS: EMPAGLIFLOZIN 25 MG TABLET PO (09:16)
[2024-05-16] MEDS: FUROSEMIDE 40 MG TABLET PO (09:16)
[2024-05-16] MEDS: PANTOPRAZOLE SODIUM IV 40 MG VIAL IV PUSH (09:16)
[2024-05-16] MEDS: AMIODARONE HCL 200 MG TABLET PO (09:16)
[2024-05-16] MEDS: SPIRONOLACTONE 12.5 MG TABLET PO (09:16)
[2024-05-16] MEDS: ATORVASTATIN 20 MG TABLET PO (09:16)
[2024-05-16] MEDS: polyethylene glycoL 3350 17 GM POWD.PACK PO (09:16)
[2024-05-16] MEDS: MEMANTINE 10 MG TABLET PO (09:16)
[2024-05-16] MEDS: POTASSIUM CHLORIDE 20 MEQ PACKET (FOR LIQUID) PO (09:16)
[2024-05-16] MEDS: FERROUS SULFATE 325 MG TABLET DR BY MOUTH (09:16)
[2024-05-16] MEDS: SERTRALINE HCL 50 MG TABLET 200 MG PO (09:16)
[2024-05-16 11:39] LABS: Glucose Point of Care 163 mg/dl (65-105)
== END 2024-05-16 12:55 | DRG 193 ==
LOC: ANHED 09:59 → ANHIMU 11:44 → ANH3MED 05-08 18:50
PROVIDERS: Emergency Medicine; Admitting Provider Internal Medicine; Emergency Provider Physician Assistant; PCP Family Medicine; Visit Provider Hospitalist
DX: J18.9 Pneumonia, unspecified organism (principal); I50.23 Acute on chronic systolic (congestive) heart failure; J96.01 Acute respiratory failure with hypoxia; N17.9 Acute kidney failure, unspecified; I13.0 Hypertensive heart and chronic kidney disease with heart failure and stage 1 through stage 4 chronic kidney disease, or unspecified chronic kidney disease; I42.8 Other cardiomyopathies; D50.9 Iron deficiency anemia, unspecified; B95.62 Methicillin resistant Staphylococcus aureus infection as the cause of diseases classified elsewhere; G47.33 Obstructive sleep apnea (adult) (pediatric); I48.0 Paroxysmal atrial fibrillation; J44.9 Chronic obstructive pulmonary disease, unspecified; N18.30 Chronic kidney disease, stage 3 unspecified; E11.22 Type 2 diabetes mellitus with diabetic chronic kidney disease; F03.90 Unspecified dementia, unspecified severity, without behavioral disturbance, psychotic disturbance, mood disturbance, and anxiety; M17.0 Bilateral primary osteoarthritis of knee; D63.8 Anemia in other chronic diseases classified elsewhere; M81.0 Age-related osteoporosis without current pathological fracture; E03.9 Hypothyroidism, unspecified; M06.9 Rheumatoid arthritis, unspecified; R19.5 Other fecal abnormalities; D75.839 Thrombocytosis, unspecified; Z66 Do not resuscitate; Z85.3 Personal history of malignant neoplasm of breast; Z87.11 Personal history of peptic ulcer disease; Z86.718 Personal history of other venous thrombosis and embolism; Z79.01 Long term (current) use of anticoagulants; Z86.711 Personal history of pulmonary embolism; Z90.49 Acquired absence of other specified parts of digestive tract; Z98.42 Cataract extraction status, left eye; Z98.41 Cataract extraction status, right eye; Z90.710 Acquired absence of both cervix and uterus; Z90.721 Acquired absence of ovaries, unilateral
CPT/HCPCS: 36415; 36430; 71045; 71046; 80048; 80053; 82274; 82565; 82728; 82948; 83540; 83550; 83605; 83735; 83880; 84100; 84132; 85025; 86850; 86900; 86901; 86923; 87040; 87070; 87205; 87637; 87641; 93005; 94660; 96365; 96368; 96375; 96376; 97116; 97162; 97165; 97530; 97535; 99212; 99291; A9270; G0378; G0463; J0456; J0696; J1815; J1940; J2470; J3370; J7050; P9016

== ENCOUNTER 2024-10-10 00:12 | Emergency (ER) | payer MEDICARE, SELFPAY ==
[2024-10-10 00:13] VITALS: BP 114/64; PULSE 64; RESP 18; TEMP 36.4; O2SAT 96
--- OUTSIDE RECORDS SUMMARY | 2024-10-10 00:16 | XMS_ITS | Encounter Summary ---
Author Organization [facility] Address 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 [id number] PCP - General Family Practice 01/19/19 documented as of this encounter
--- OUTSIDE RECORDS SUMMARY | 2024-10-10 00:16 | XMS_ITS | Encounter Summary ---
Author Organization [facility] Address 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 [id number] PCP - General Family Practice 01/19/19 documented as of this encounter
--- OUTSIDE RECORDS SUMMARY | 2024-10-10 00:16 | XMS_ITS | Encounter Summary ---
Author Organization [facility] Address 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 [phone] PCP - General Family Practice 01/19/19 documented as of this encounter
--- OUTSIDE RECORDS SUMMARY | 2024-10-10 00:16 | XMS_ITS | Encounter Summary ---
Author Organization [facility] Address 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 [address] PCP - General Family Practice 01/19/19 documented as of this encounter
--- OUTSIDE RECORDS SUMMARY | 2024-10-10 00:16 | XMS_ITS | Patient Health Record ---
Author Organization [employer] Address [address] [facility] [place] [facility] [address] [place], [place] [id number] Care Team Providers Care Help Desk Intern Name Role Phone Tereso Noe [phone] ALLERGIES Allergen (clinical drug ingredient) Drug/Non Drug [...] 1 tab PO DAILY 02/29/2024 02/28/99 Active PROBLEMS Problem Type ICD Code Onset Dates Problem Status W/U Status Risk SNOMED Code Notes Problem Rheumatoid Arthritis (714.0) Active confirmed Rheumatoid arthritis (16592000) Problem MONITOR MED (V58.69) Active confirmed Long-term drug therapy (918414381) Problem Pemphigoid (694.5) Active confirmed Pemphigoid (49716505) PLAN OF TREATMENT Pending Test Test Name Order Date CBC With Differential/Platelet 9 CBC With Differential/Platelet 0 Comp. Metabolic Panel (14) 04/30/2009 Comp. Metabolic Panel (14) 01/01/2009 Joint Injection - shoulder, right 2008 Insurance Providers Payer Name Payer Address Payer Phone Subscriber Number Group Number Insured Name Patient Relationship to Insured Coverage Start Date Coverage End Date [employer] OPEN ACC[employer] [address] [place] [address] [id number] Hoa EASLEY Self - patient is the [...]
--- OUTSIDE RECORDS SUMMARY | 2024-10-10 00:16 | XMS_ITS | Encounter Summary ---
Author Organization [employer] Address 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 [phone] PCP - General Family Practice 01/19/19 documented as of this encounter
--- OUTSIDE RECORDS SUMMARY | 2024-10-10 00:16 | XMS_ITS | Clinical Summary ---
Author Organization [facility] [address] Address [address] [place] [address] Care Team Providers Care Marine Specialist Name Role Phone Bryan Valiente MD Primary Care Provider [phone] Allergies Active Allergy Reactions Criticality Noted Date [...] (112 mcg total) by mouth daily Active donepeziL (ARICEPT) 10 mg tablet 1 Active empagliflozin (JARDIANCE) 25 mg tablet 1 tablet (25 mg total) 4 Active sertraline 200 mg capsule 4 Active anastrozole (ARIMIDEX) 1 mg tablet [...] 325 mg (65 mg of elemental iron) tabletIndicatio ns:Iron Deficiency Anemia Take 1 tablet (65 mg of elemental iron total) by mouth 3 (three) times a day with meals Active CYANOCOBALAMIN, VITAMIN B-12, ORAL Take by mouth Active amiodarone (PACERONE) 200 mg tablet Take 0.5 tablets (100 mg total) by mouth daily Active aspirin 81 mg chewable tablet Take 1 tablet (81 mg total) by mouth daily Active cholecalciferol (VITAMIN D-3) 2000 unit tablet Active menthol-zinc oxide 0.44-20.6 % ointment Apply topically CalProtect Ointment Active polyethylene glycol (MIRALAX) 17 gram packetIndicatio ns:constipation Take 1 packet (17 g total) by [...] topically 4 (four) times a day Active benzonatate (TESSALON) 200 mg capsule 5 Active acetaminophen ER (TYLENOL) 650 mg 8 hr tablet Take 1 tablet (650 mg total) by mouth every 8 (eight) hours as needed for pain Active midodrine (PROAMATINE) 10 mg tablet Take 1 tablet 3 times a day by oral route. Active Eliquis 5 mg tablet 5 Active spironolactone (ALDACTONE) 25 mg tablet Take 1 tablet (25 mg total) by mouth daily Active furosemide (LASIX) 20 mg tablet Take 1 tablet (20 mg total) by mouth daily Active potassium chloride ER 20 mEq CR tablet Take 1 tablet (20 mEq total) by mouth daily Active pantoprazole DR (PROTONIX) 40 mg EC tablet Take 1 tablet (40 mg total) by mouth daily Active sucralfate (CARAFATE) 1 gram tablet Take 1 tablet (1 g total) by mouth 4 (four) times a day Active polysaccharide iron complex (NU-IRON) 150 mg iron capsuleIndicati ons:Iron Deficiency Anemia Take 1 capsule (150 mg total) by mouth 2 (two) times a day Active Active Problems Problem Noted Date Diagnosed Date Paroxysmal atrial fibrillation 06/05/2024 Ventricular tachycardia 06/05/2024 Dilated cardiomyopathy 06/05/2024 PVCs (premature ventricular contractions) 2018 Morbid obesity with BMI of 40.0-44.9, adult 09/28 Precordial pain 09/09/2016 Rash 06/14/2012 Bullous pemphigoid 05/12/2012 Encounters Date Type Department Care Team Description 08/07/2024 11:45 AM CDT Office Visit [facility] Cardiology [address] [place] [address] [address] [place] [phone] Angel Montana MD Dilated cardiomyopathy (HCC) (Primary Dx); Ventricular tachycardia (HCC); Paroxysmal atrial fibrillation (HCC) 07/31/2024 10:15 AM CDT Ancillary Procedure [facility] Cardiology [address] [place] [address] [place] [phone] Dilated cardiomyopathy (HCC) 07/31/2024 Results Follow-Up [facility] Cardiology [address] [place] [address] [address] [place] [phone] Lizeth Solis NP Transthoracic Echo (TTE) Limited/Followup from Last 3 Months Medical History Medical History Date Comments Cardiac arrest Chronic kidney disease Hypertension Pneumonia Acute respiratory failure Diabetes mellitus (HCC) Asthma COPD (chronic obstructive pulmonary disease) Atrial fibrillation (HCC) Family History Medical History Relation Name Comments [...] on file Legal Sex Female 12:33 AM YARN SKEINS EXAMINER Gender Identity Not on file Sexual Orientation Not on file Obstetrics History Last Filed Vital Signs Vital Sign Reading Time Taken Comments Blood Pressure 108/62 08/07/2024 11:41 AM CDT Pulse 77 08/07/2024 11:41 AM CDT Temperature - - Respiratory Rate 14 09/09/2016 10:56 AM CDT Oxygen Saturation 96% 08/07/2024 11:41 AM CDT Inhaled Oxygen Concentration - - Weight 97.5 kg (215 lb) 08/07/2024 11:41 AM CDT per pt Height 167.6 cm (5' 6) 08/07/2024 11:41 AM CDT Body Mass Index 34.7 08/07/2024 11:41 AM CDT Plan of Treatment Health Maintenance Due [...] 04/21/2020, Additional history exists Influenza Vaccine (#1) 2024 9, 11/13/2017, 11/14/2016, Additional history exists eGFR 01/23/2025 01/24/2024 Pneumococcal vaccine 65+ Completed 08/16/2023 Procedures Procedure Name Priority Date/Time Associated Diagnosis Comments TRANSTHORACIC ECHO (TTE) LIMITED/FOLLOW UP W LTD DOPPLER/CF WO CONTRAST Routine 07/31/2024 10:47 AM CDT Dilated cardiomyopathy (HCC) EGFR Routine 01/24/2024 12:16 PM YARN SKEINS EXAMINER POCT LIPID PANEL Routine 01/15/2021 2:05 PM YARN SKEINS EXAMINER Lipid screening from Last 3 Months or Most Recently Relevant to Health Maintenance Results * TRANSTHORACIC ECHO (TTE) LIMITED/FOLLOW UP W LTD DOPPLER/CF WO CONTRAST (07/31/2024 10:47 AM CDT) EF Mod BP 56 % CONS SCIMAGE Anatomical Region Laterality Modality Ultrasound 07/31/2024 10:2 3 AM CDT Narrative 07/31/2024 11:08 AM CDT [facility] [address] [facility] [address], [place] [address] [address] [facility] [address], [place] [address] P:[phone] P:[phone] Echocardiographic Report Patient Name: HOA BALBUENA J : 1950 Study Date: 07/31/2024 10:23:17 AM Gender: F Tech: DLS Ref Provider: LIZETH SOLIS Height(Cm): 168 BSA: 2.06 Weight(Kg): 90.7 Heart Rate: 96 BP: 100 / 52 Quality: Good Order Provider: LIZETH SOLIS PROCEDURES: Echocardiographic Report: Transthoracic echocardiogram with limited 2D imaging. With Strain Analysis. INDICATIONS: I42.0 Dilated cardiomyopathy. MEASUREMENTS: 2D/MM Value Range EF Mod BP 56 % [ 54 - 74 ] LVIDd 2D 4.95 cm [ 3.80 - 5.20 ] LVIDs 2D 3.31 cm [ 2.20 - 3.50 ] LVPWd 2D 0.90 cm [ 0.60 - 0.90 ] IVSd 2D 0.94 cm [ 0.60 - 0.90 ] 2D/MM Value Range - FINDINGS: Interpretation Site: Exam was interpreted at [facility]. Left Ventricle: Ejection fraction is measured at 56 %. Global Longitudinal Strain is -15 %. The left ventricle is normal in size and systolic function. The left ventricular ejection fraction is visually estimated to be 55-60%. Right Ventricle: Normal right ventricular size. Normal right ventricular systolic function. Mitral Valve: The mitral valve leaflets open well. Aortic Valve: The aortic valve is trileaflet and sclerotic but opens well. CONCLUSIONS: Ejection fraction is measured at 56 %. Global Longitudinal Strain is -15 %. The left ventricle is normal in size and systolic function. The left ventricular ejection fraction is visually estimated to be 55-60%. Electronically Signed By: Dr. Adal Aranda 07/31/2024 11:08:18 AM CDT Procedure Note Adal Aranda MD - 07/31/2024 [facility] [address] [facility] [address] [address] [address] [facility] [address] [address] P:[phone] P:[phone] Echocardiographic Report Patient Name: HOA BALBUENA J : 1950 Study Date: 07/31/2024 10:23:17 AM Gender: F Tech: DLS Ref Provider: LIZETH SOLIS Height(Cm): 168 BSA: 2.06 Weight(Kg): 90.7 Heart Rate: 96 BP: 100 / 52 Quality: Good Order Provider: LIZETH SOLIS PROCEDURES: Echocardiographic Report: Transthoracic echocardiogram with limited 2D imaging. With StrainAnalysis. INDICATIONS: I42.0 Dilated cardiomyopathy. MEASUREMENTS: 2D/MM Value Range EF Mod BP 56 % [ 54 - 74 ] LVIDd 2D 4.95 cm [ 3.80 - 5.20 ] LVIDs 2D 3.31 cm [ 2.20 - 3.50 ] LVPWd 2D 0.90 cm [ 0.60 - 0.90 ] IVSd 2D 0.94 cm [ 0.60 - 0.90 ] 2D/MM Value Range - FINDINGS: Interpretation Site: Exam was interpreted at [facility]. Left Ventricle: Ejection fraction is measured at 56 %. Global Longitudinal Strain is -15%. The left ventricle is normal in size and systolic function. The left ventricularejection fraction is visually estimated to be 55-60%. Right Ventricle: Normal right ventricular size. Normal right ventricular systolicfunction. Mitral Valve: The mitral valve leaflets open well. Aortic Valve: The aortic valve is trileaflet and sclerotic but opens well. CONCLUSIONS: Ejection fraction is measured at 56 %. Global Longitudinal Strain is -15%. The left ventricle is normal in size and systolic function. The left ventricularejection fraction is visually estimated to be 55-60%. Electronically Signed By: Dr. Adal Aranda 07/31/2024 11:08:18 AM CDT Lizeth Solis NP CV ECHO PROCEDURES Final Result * eGFR (01/24/2024 12:16 PM YARN SKEINS EXAMINER) eGFR 90 >=60 mL/min/1. 73 m2 Comment: [...] reviewed 2020. Blood 01/24/2024 12:1 6 PM YARN SKEINS EXAMINER 01/25/2024 8:16 AM YARN SKEINS EXAMINER us Notinfile Unknown LAB BLOOD ORDERABLES Final Res ult [facility] [address] Department [place] [address] * (ABNORMAL) POCT lipid panel (01/15/2021 2:05 PM YARN SKEINS EXAMINER) Cholesterol, POC 21 mg/dL HDL, POC 72 mg/dL Triglycerides, POC 296 mg/dL LDL Cholesterol POC 80 mg/dL Chol/HDL Ratio, POC 2.9 Non-HDL Cholesterol, POC 139 mg/dL Cholesterol Total, POC 211 mg/dL Capillary blood 01/15/2021 2 :05 PM YARN SKEINS EXAMINER us Angel Montana MD POINT OF CARE TEST ORDER MILLA Final Result from Last 3 Months or Most Recently Relevant to Health Maintenance Additional Health Concerns Infection Onset Date Last Indicated MDR gram neg/ESBL Comment:09/29/15 E.coli -urine 10/02/2015 10/02/2015 Insurance MDCR HMO REF [employer] MEDICARE Care Teams Marine Specialist Relationship Specialty Start Date End Date Bryan Valiente MD PCP - General 08/06/15
--- OUTSIDE RECORDS SUMMARY | 2024-10-10 00:16 | XMS_ITS | Clinical Summary ---
Author Organization [facility] Address [address] [place] [address] Care Team Providers Care Tack Maker Name Role Phone Unavailable Primary Care Provider Unavailabl e Immunizations Immunization Administration Dates Next Due Covid-19, Mrna, Lnp-s, Pf, 30 Mcg/0.3 Ml Dose (P fizer) 01/09/2021 Social History Tobacco Use Types Packs/Day Years Used Date Smoking Tobacco: Never Assessed Comments Unknown Sex and Gender Information Value Date Recorded Sex Assigned at Not on file Legal Sex Female 9:44 AM CLINICAL REGISTERED NURSE Gender Identity Not on file Sexual Orientation Not on file Plan of Treatment Health Maintenance Due Date Last Done Comments Hepatitis C Virus (HCV) Screening 1950 TdaP Immunization 1950 Pneumococcal Immunization (50+ years) (1 of 1 - PCV) 01/15/1998 Zoster Immunization (1 of 2) 01/15/1998 Respiratory Syncytial Virus (RSV) Immunization (Adult) (1 - 1-dose 75+ series) 01/15/2023 SARS-COV-2 Immunization ( season) 2023 01/09/2021, 04/21/2020, 03/31/2020 Influenza Immunization (#1) 10/29/202411/29, 11/13/2017, 11/14/2016, Additional history exists Hepatitis B Immunization Aged Out No longer eligible based on patient's age to complete this topic Human Papillomavirus (HPV) Immunization Aged Out No longer eligible based on patient's age to complete this topic Meningococcal Immunization (ACWY) Aged Out No longer eligible based on patient's age to complete this topic Rotavirus Immunization Aged Out No lo nger eligible based on patient's age to complete this topic
--- OUTSIDE RECORDS SUMMARY | 2024-10-10 00:16 | XMS_ITS | Clinical Summary ---
Author Organization [facility] Marie Stoll Address [address] [place] [address] Care Team Providers Care Svp Research & Ebusiness Operations Name Role Phone Bryan Valiente MD Primary Care Provider Allergies Active Allergy Reactions Criticality Noted Date [...] Encounters Date Type Department Care Team Description 09/12/2024 External Device Data STL ABSTRACTION Provider, Abstract 09/11/2024 External Device Data STL ABSTRACTION Provider, Abstract 08/15/2024 External Device Data STL ABSTRACTION Provider, Abstract 07/31/2024 External Device Data STL ABSTRACTION Provider, Abstract 07/19/2024 External Device Data STL ABSTRACTION Provider, Abstract 07/18/2024 External Device Data STL ABSTRACTION Provider, Abstract 07/17/2024 External Device Data ST[place] ABSTRACTION Provider, Abstract [...] on file Legal Sex Female 3:13 AM SEARCH ENGINEER Gender Identity Not on file Sexual Orientation [...] 9:36 AM CDT Height 167.6 cm (5' 6) 05/14/2021 3:04 PM CDT Body Mass Index [...] 1-dose 75+ series) 01/15/2023 INFLUENZA VACCINE (#1) 2024 Insurance [facility] Care Teams Svp Research & Ebusiness Operations Relationship Specialty Start Date End Date Bryan Valiente MD [address] [place] [phone] PCP - General Family Practice 01/19/19
--- OUTSIDE RECORDS SUMMARY | 2024-10-10 04:24 | XMS_ITS | Encounter Summary ---
Author Organization [facility] Address [address] [place] [address] Care Team Providers Care Senior Scheduler Name Role Phone Bryan Valiente MD Primary Care Provider [phone] Encounter Details Date Type Department Care Team (Late st Contact Info) Description 01/25/2000 Outpatient Historical [facility] Sanjay Carr MD [address] [facility] [address] [place] [address] Social History Tobacco Use Types Packs/Day Years Used Date Smoking Tobacco: Never Assessed Comments Unknown Sex and Gender Information Value Date Recorded Sex Assigned at Not on file Legal Sex Female 3:13 AM COPY LATHE TENDER Gender Identity Not on file Sexual Orientation Not on file documented as of this encounter Plan of Treatment Not on file documented as of this encounter Visit Diagnoses Not on filedocumented in this encounter Care Teams Senior Scheduler Relationship Specialty Start Date End Date Bryan Valiente MD [address] [place] [phone] PCP - General Family Practice 01/19/19 documented as of this encounter
--- OUTSIDE RECORDS SUMMARY | 2024-10-10 04:24 | XMS_ITS | Clinical Summary ---
Author Organization [facility] Marie Stoll Address [address] [place] [address] Care Team Providers Care Ready To Wear Department Manager Name Role Phone Bryan Valiente MD Primary Care Provider [phone] Allergies Active Allergy Reactions Criticality Noted Date [...] on file Legal Sex Female 3:13 AM PROJECT ENGINEER Gender Identity Not on file Sexual [...] series) 01/15/2023 INFLUENZA VACCINE (#1) 2024 [facility] Care Teams Ready To Wear Department Manager Relationship Specialty Start Date End Date Bryan Valiente MD [address] [place] [phone] PCP - General Family Practice 01/19/19
--- OUTSIDE RECORDS SUMMARY | 2024-10-10 04:24 | XMS_ITS | Clinical Summary ---
Author Organization [facility] [address] Address [address] [place] [address] Care Team Providers Care Ibm Websphere Commerce Developer Name Role Phone Bryan Valiente MD Primary Care Provider [phone] Allergies Active Allergy Reactions Criticality Noted Date [...] Description 08/07/2024 11:45 AM CDT Office Visit [facility] Cardiology [address] [place] [address] [address] [place] [phone] Angel Montana MD Dilated cardiomyopathy (HCC) (Primary Dx); Ventricular tachycardia (HCC); Paroxysmal atrial fibrillation (HCC) 07/31/2024 10:15 AM CDT Ancillary Procedure [facility] Cardiology [address] [place] [address] [place] [phone] Dilated cardiomyopathy (HCC) 07/31/2024 Results Follow-Up [facility] Cardiology [address] [place] [address] [address] [place] [phone] Lizeth Solis NP Transthoracic Echo (TTE) Limited/Followup [...] on file Legal Sex Female 12:33 AM PSYCHOTHERAPIST Gender Identity Not on file Sexual Orientation [...] cardiomyopathy (HCC) EGFR Routine 01/24/2024 12:16 PM PSYCHOTHERAPIST POCT LIPID PANEL Routine 01/15/2021 2:05 PM PSYCHOTHERAPIST Lipid screening from Last 3 Months or Most Recently Relevant to Health Maintenance Results * TRANSTHORACIC ECHO (TTE) LIMITED/FOLLOW UP W LTD DOPPLER/CF WO CONTRAST (07/31/2024 10:47 AM CDT) EF Mod BP 56 % CONS SCIMAGE Anatomical Region Laterality Modality Ultrasound 07/31/2024 10:2 3 AM CDT Narrative 07/31/2024 11:08 AM CDT [facility] Cardiology [address] [facility] [address], [place] [address] [address] [facility] [address], [place] [address] P:[phone] P:[phone] Echocardiographic Report Patient Name: HOA BALBUENA J [...] FINDINGS: Interpretation Site: Exam was interpreted at [facility]. Left Ventricle: Ejection fraction is measured at [...] Procedure Note Adal Aranda MD - 07/31/2024 [facility] Cardiology [address] [facility] [address], [place] [address] [address] [facility] [address], [address], [place] [address] P:[phone] P:[phone] Echocardiographic Report Patient Name: HOA BALBUENA J [...] FINDINGS: Interpretation Site: Exam was interpreted at [facility]. Left Ventricle: Ejection fraction is measured at [...] Final Result * eGFR (01/24/2024 12:16 PM PSYCHOTHERAPIST) eGFR 90 >=60 mL/min/1. 73 m2 Comment: [...] reviewed 2020. Blood 01/24/2024 12:1 6 PM PSYCHOTHERAPIST 01/25/2024 8:16 AM PSYCHOTHERAPIST us Notinfile Unknown LAB BLOOD ORDERABLES Final Res ult [facility] [address] Department [place] [address] * (ABNORMAL) POCT lipid panel (01/15/2021 2:05 PM PSYCHOTHERAPIST) Cholesterol, POC 21 mg/dL HDL, POC 72 mg/dL Triglycerides, POC 296 mg/dL LDL Cholesterol POC 80 mg/dL Chol/HDL Ratio, POC 2.9 Non-HDL Cholesterol, POC 139 mg/dL Cholesterol Total, POC 211 mg/dL Capillary blood 01/15/2021 2 :05 PM PSYCHOTHERAPIST us Angel Montana MD POINT OF CARE TEST ORDER MILLA Final Result from Last 3 Months or Most Recently Relevant to Health Maintenance Additional Health Concerns Infection Onset Date Last Indicated MDR gram neg/ESBL Comment:09/29/15 E.coli -urine 10/02/2015 10/02/2015 Insurance MDCR HMO REF [facility] Address: [address] [address] [place] [address] [employer] MEDICARE Care Teams Ibm Websphere Commerce Developer Relationship Specialty Start Date End Date Bryan Valiente MD PCP - General 08/06/15
--- OUTSIDE RECORDS SUMMARY | 2024-10-10 04:24 | XMS_ITS | Clinical Summary ---
Author Organization [facility] Address [address] [place] [address] Care Team Providers Care Interior Wirer Name Role Phone Unavailable Primary Care Provider Unavailabl e Immunizations Immunization Administration Dates Next Due Covid-19, Mrna, Lnp-s, Pf, 30 Mcg/0.3 Ml Dose (P fizer) 01/09/2021 Social History Tobacco Use Types Packs/Day Years Used Date Smoking Tobacco: Never Assessed Comments Unknown Sex and Gender Information Value Date Recorded Sex Assigned at Not on file Legal Sex Female 9:44 AM SIDE SEAM ENVELOPE MACHINE OPERATOR Gender Identity Not on file Sexual [...]
--- OUTSIDE RECORDS SUMMARY | 2024-10-10 04:24 | XMS_ITS | Encounter Summary ---
Author Organization [facility] Address [address] [place] [address] Care Team Providers Care Fish Inspector Name Role Phone Bryan Valiente MD Primary Care Provider [phone] Encounter Details Date Type Department Care Team (Late st Contact Info) Description 02/03/2000 Outpatient Historical [facility] Jaguar King MD Social History Tobacco Use Types Packs/Day Years Used Date Smoking Tobacco: Never Assessed Comments Unknown Sex and Gender Information Value Date Recorded Sex Assigned at Not on file Legal Sex Female 3:13 AM SOLAR SALES AMBASSADOR Gender Identity Not on file Sexual Orientation Not on file documented as of this encounter Plan of Treatment Not on file documented as of this encounter Visit Diagnoses Not on filedocumented in this encounter Care Teams Fish Inspector Relationship Specialty Start Date End Date Bryan Valiente MD [address] [place] [address] PCP - General Family Practice 01/19/19 documented as of this encounter
--- OUTSIDE RECORDS SUMMARY | 2024-10-10 04:24 | XMS_ITS | Encounter Summary ---
Author Organization [facility] Address [address] [place] [address] Care Team Providers Care Plumbers And Top Helpers Name Role Phone Bryan Valiente MD Primary Care Provider [phone] Encounter Details Date Type Department Care Team (Late st Contact Info) Description 03/22/2000 Outpatient Historical [facility] Sanjay Carr MD [address] [facility] [address] [place] [address] Social History Tobacco Use Types Packs/Day Years Used Date Smoking Tobacco: Never Assessed Comments Unknown Sex and Gender Information Value Date Recorded Sex Assigned at Not on file Legal Sex Female 3:13 AM SET UP MECHANIC AUTOMATIC LINE Gender Identity Not on file Sexual Orientation Not on file documented as of this encounter Plan of Treatment Not on file documented as of this encounter Visit Diagnoses Not on filedocumented in this encounter Care Teams Plumbers And Top Helpers Relationship Specialty Start Date End Date Bryan Valiente MD [address] [place] [phone] PCP - General Family Practice 01/19/19 documented as of this encounter
--- OUTSIDE RECORDS SUMMARY | 2024-10-10 04:24 | XMS_ITS | Encounter Summary ---
Author Organization [facility] Address [address] [place] [address] Care Team Providers Care Barrel Ribs Solderer Name Role Phone Bryan Valiente MD Primary Care Provider [phone] Encounter Details Date Type Department Care Team (Late st Contact Info) Description 02/03/2000 Outpatient Historical [facility] Sanjay Carr MD [address] [facility] [address] [place] [address] Social History Tobacco Use Types Packs/Day Years Used Date Smoking Tobacco: Never Assessed Comments Unknown Sex and Gender Information Value Date Recorded Sex Assigned at Not on file Legal Sex Female 3:13 AM BARTENDER MANAGER Gender Identity Not on file Sexual Orientation Not on file documented as of this encounter Plan of Treatment Not on file documented as of this encounter Visit Diagnoses Not on filedocumented in this encounter Care Teams Barrel Ribs Solderer Relationship Specialty Start Date End Date Bryan Valiente MD [address] [place] [phone] PCP - General Family Practice 01/19/19 documented as of this encounter
--- OUTSIDE RECORDS SUMMARY | 2024-10-10 04:24 | XMS_ITS | Encounter Summary ---
Author Organization [facility] Address [address] [place] [address] Care Team Providers Care Consumer Affairs Manager Name Role Phone Bryan Valiente MD Primary Care Provider [phone] Encounter Details Date Type Department Care Team (Late st Contact Info) Description 10/29/1999 Outpatient Historical [facility] Sanjay Carr MD [address] [facility] [address] [place] [address] Social History Tobacco Use Types Packs/Day Years Used Date Smoking Tobacco: Never Assessed Comments Unknown Sex and Gender Information Value Date Recorded Sex Assigned at Not on file Legal Sex Female 3:13 AM FLIGHT AGENT Gender Identity Not on file Sexual Orientation Not on file documented as of this encounter Plan of Treatment Not on file documented as of this encounter Visit Diagnoses Not on filedocumented in this encounter Care Teams Consumer Affairs Manager Relationship Specialty Start Date End Date Bryan Valiente MD [address] [place] [phone] PCP - General Family Practice 01/19/19 documented as of this encounter
--- NOTE | 2024-10-10 05:43 | ED_ITS ---
HPI - Extremity Injury (Lower) General Chief Complaint: Extremity Injury, Lower Stated Complaint: hit her leg on car door, bleeding. Time Seen by Provider: 10/10/24 04:04 History of Present Illness HPI Narrative: 74-year-old female presenting with minor injury to her left lower extremity. She has a curvilinear laceration to the left lower leg that was still bleeding despite compression. She is on blood thinners. Her friend that is present with her open the car door accidentally into her leg. No significant pain but the bleeding has not stopped. Patient is not in any acute distress and normally wheelchair-bound. She is otherwise well-appearing and has a Coban wrapped around her left distal leg with bleeding seemingly controlled. She is not sure for tetanus is up-to-date. Related Data Home Medications ?Medication ?Instructions ?Recorded ?Confirmed ?Last Taken ?Type cyanocobalamin (vitamin B-12) 1,000 mcg PO DAILY 02/05/24 05/07/24 Unknown History 1,000 mcg tablet (Vitamin B-12) ferrous sulfate 325 mg (65 mg 325 mg PO BID 02/05/24 05/07/24 Unknown History iron) tablet (FeroSul) memantine 10 mg tablet 10 mg PO BID 02/05/24 05/07/24 Unknown History sertraline 100 mg tablet 200 mg PO DAILY 02/05/24 05/07/24 Unknown History spironolactone 25 mg tablet 12.5 mg PO DAILY 02/05/24 05/07/24 Unknown History acetaminophen 325 mg capsule 650 mg PO Q4H PRN fever or pain 05/07/24 05/07/24 Unknown History benzonatate 200 mg capsule 200 mg PO BID PRN cough 05/07/24 05/07/24 Unknown History cholecalciferol (vitamin D3) 50 6,000 unit PO DAILY 05/07/24 05/07/24 Unknown History mcg (2,000 unit) capsule polyethylene glycol 3350 17 gram 17 g PO DAILY 05/07/24 05/07/24 Unknown History oral powder packet (Miralax) Allergies Allergy/AdvReac Type Severity Reaction Status Date / Time amoxicillin Allergy Severe DIFFICULTY Verified 05/07/24 09:52 BREATHING/HIVES Iodinated Contrast Media Allergy Severe Anaphylaxis Verified 05/07/24 09:52 lisinopril Allergy Severe Swelling Verified 05/07/24 09:52 of Lip/Tongue/Throat methotrexate Allergy Severe Hives Verified 05/07/24 09:52 Penicillins Allergy Severe DIFFICULTY Verified 05/07/24 09:52 BREATHING/HIVES tetracycline Allergy Severe Hives Verified 05/07/24 09:52 metformin Allergy Unknown Jittery Verified 05/07/24 09:52 adhesive tape AdvReac Intermediate SKIN PEELS Verified 05/07/24 09:52 OFF codeine AdvReac Mild NAUSEA/VOMI Verified 05/07/24 09:52 TING ioversol AdvReac Unknown DOESN'T Verified 05/07/24 09:52 REMEMBER Review of Systems Review of Systems: As reviewed above in HPI [facility] Past Medical History Medical History Nonischemic cardiomyopathy Iron deficiency anemia Acute anxiety Ataxia Low vitamin B12 level Dementia on donepezil and memantine Urine incontinence Depression with anxiety Degenerative arthritis of knee, bilateral Cyst Obesity 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 Bullous pemphigoid On daily prednisone. 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 Neoadjuvant chemotherapy with TCH and Perjeta. status left breast mastectomy with sentinel lymph node biopsy on 07/31/2019. Obstructive sleep apnea on CPAP Pulmonary embolism Surgical History Surgical History H/O dilation and curettage H/O oophorectomy one ovary-unsure side History of cardiac catheterization History of total mastectomy of left breast (~07/2019) History of cystoscopy With lithotripsy and stent placement. History of cholecystectomy History of bilateral cataract extraction History of tubal ligation History of appendectomy History of hysterectomy Status post cataract extraction of both eyes with insertion of intraocular lens Hx of cholecystectomy History of partial mastectomy of left breast Approximately 2018 Family History Family History Father Acute myocardial infarction Father Cerebrovascular accident Acute myocardial infarction Tobacco abuse Mother Cerebrovascular accident Sibling No problems noted. Social History Social History Social History: The patient is never and has no children. 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 She is currently in assisted living at [facility], and has been there for a couple of months since she started chemotherapy. She also owns a home in [place], where she hopes to return. Her sister -in-law, Sofia, is her surrogate decision maker. She wishes to be a full code. 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 Gender identity (if verbalized by the patient): Female Sexual Orientation (if Verbalized by the Patient): Straight or Heterosexual Spiritual care concerns: No Agree to blood products: Yes Exam Narrative: GENERAL: Chronically ill-appearing but not any acute distress HEAD: [Normocephalic, atraumatic.] EYES: [PERRLA and EOMI.] ENT: Nares clear, no rhinorrhea or epistaxis. Mucous membranes moist. NECK: Supple. CHEST: [Clear to auscultation. No respiratory distress.] HEART: [Regular rate and rhythm]. No murmur heard. [Normal peripheral pulses.] ABDOMEN: [Soft, nondistended], [nontender], [No rigidity or guarding] EXTREMITIES: Normal range of motion. 2+ pitting edema bilaterally SKIN: Small 3 cm curvilinear laceration involving the superficial soft tissues of the left lower extremity distal leg with some minor oozing of blood. No significant dehiscence or soft tissue exposure. No pulsatile bleeding. Distal neuro vasculature is intact. NEURO: [No focal deficits]. Alert and oriented [x3.] PSYCH: [Normal mood and affect.] Course Vital Signs Vital signs: Vital Signs Temperature 36.4 C 10/10/24 00:13 Pulse Rate 64 10/10/24 00:13 Respiratory Rate 18 10/10/24 00:13 Blood Pressure 114/64 10/10/24 00:13 Pulse Oximetry 96 10/10/24 00:13 Oxygen Delivery Room Air 10/10/24 00:13 Temperature 36.4 C 10/10/24 00:13 Pulse Rate 64 10/10/24 00:13 Respiratory Rate 18 10/10/24 00:13 Blood Pressure 114/64 10/10/24 00:13 Pulse Oximetry 96 10/10/24 00:13 Oxygen Delivery Room Air 10/10/24 00:13 Procedures Laceration Laceration 1: Date: 10/10/24 Time: 06:35 Site: lower extremity Side (If applicable): left Size (cm): 3 Description: linear and clean Depth: simple, single layer Local Anesthetic: none Pre-repair: wound explored, irrigated and deep structures intact ====== Skin Level ====== Skin layer closed with: dermabond and steri strips ====== Subcutaneous Layer ====== ====== Muscle Layer ====== ====== Tendon Layer ====== Dressing: gauze dressing MDM - Extremity Injury (Lower) MDM Narrative Medical decision making narrative: 74-year-old female presenting with minor injury to her left lower extremity. She has a curvilinear laceration to the left lower leg that was still bleeding despite compression. She is on blood thinners. Her friend that is present with her open the car door accidentally into her leg. No significant pain but the bleeding has not stopped. Patient is not in any acute distress and normally wheelchair-bound. She is otherwise well-appearing and has a Coban wrapped aroun d her left distal leg with bleeding seemingly controlled. She is not sure for tetanus is up-to-date. Small 3 cm curvilinear laceration involving the superficial soft tissues of the left lower extremity distal leg with some minor oozing of blood. No significant dehiscence or soft tissue exposure. No pulsatile bleeding. Distal neuro vasculature intact. TXA was applied directly to the wound to allow for hemostasis with pressure dressing on top. Dermabond and Steri-Strips for wound repair and pressure dressing applied prior to discharge. Medical Records Attestation: I reviewed the patient's medical records. Discharge Plan Discharge Clinical Impression: Skin tear of left lower leg without complication Patient Disposition: Home Condition: Stable Instructions: Antibiotic Form, Skin Adhesive Care (ED), Skin Tear (ED), Skin Adhesive Strips (ED) Additional Instructions: Keep the gauze wrap for approximately 24 hours to allow the wound to start healing and the matrix for the skin glue to fully QR. Keep the area dry for 24 hours. Change the dressings if they become dirty, soak through or bleed. Return with any emergent concerns. The Steri-Strips and skin glue will fall off naturally after approximately 3-5 days. Patient Language: Sinhala Prescriptions: No Action (DME) blood-glucose meter [Accu-Chek Guide Glucose Meter] [facility] See Rx Instructions .Route Qty: 1 0RF Rx Instructions: use to check BID glucose (DME) Mepilex Border Sacrum 9.2 X 9.2 bandage See Rx Instructions .Route Qty: 5 1RF Rx Instructions: apply to cover area of breakdown, changing q72 hours or prn albuterol sulfate [ProAir HFA] 90 mcg/actuation HFA aerosol inhaler 1 inh INHALATION Q4H PRN (Reason: shortness of breath or wheezing) Qty: 6.7 3RF sertraline 100 mg tablet 200 mg PO DAILY cyanocobalamin (vitamin B-12) [Vitamin B-12] 1,000 mcg tablet 1,000 mcg PO DAILY spironolactone 25 mg tablet 12.5 mg PO DAILY ferrous sulfate [FeroSul] 325 mg (65 mg iron) tablet 325 mg PO BID memantine 10 mg tablet 10 mg PO BID atorvastatin 20 mg Tablet 20 mg PO DAILY Qty: 30 1RF amiodarone [Pacerone] 200 mg Tablet 200 mg PO DAILY@0800 Qty: 30 1RF aspirin 81 mg Tablet,Delayed Release (Dr/Ec) 81 mg PO QAM Qty: 60 0RF cholecalciferol (vitamin D3) 50 mcg (2,000 unit) capsule 6,000 unit PO DAILY polyethylene glycol 3350 [Miralax] 17 gram powder in packet 17 g PO DAILY acetaminophen 325 mg capsule 650 mg PO Q4H PRN (Reason: fever or pain) benzonatate 200 mg capsule 200 mg PO BID PRN (Reason: cough) furosemide 40 mg Tablet 40 mg PO DAILY Qty: 60 0RF pantoprazole [Protonix] 40 mg tablet,delayed release (DR/EC) 40 mg PO BID Qty: 60 0RF sucralfate [Carafate] 1 gram tablet 1 g PO ACHS Qty: 120 0RF levothyroxine 112 mcg tablet 112 mcg PO DAILY Qty: 30 0RF Jardiance 25 mg tablet 25 mg PO DAILY Qty: 60 0RF metoprolol tartrate 25 mg tablet 12.5 mg PO BID Qty: 60 0RF (DME) blood sugar diagnostic [Contour Next Test Strips] Strip See Rx Instructions .ROUTE .MEDSUPPLY Qty: 100 0RF Rx Instructions: check glucose tid for diabetes (DME) Blood Glucose Test Strip See Rx Instructions .MEDSUPPLY Qty: 100 0RF Rx Instructions: Use QAC and QHS with SSI (DME) lancets [Lancets, Super Thin] Misc See Rx Instructions .ROUTE .MEDSUPPLY Qty: 100 0RF Rx Instructions: As directed (DME) hydrocolloid dressing [DuoDERM CGF Border Dressing] 4 X 4 bandage See Rx Instructions .ROUTE .MEDSUPPLY Qty: 20 0RF Rx Instructions: As directed (DME) silicone,dressing-foam bandage 3 X 3 bandage See Rx Instructions .Route Qty: 10 1RF Rx Instructions: As directed for application to buttock wound potassium chloride 20 mEq tablet extended release 20 meq PO DAILY Qty: 30 3RF anastrozole 1 mg tablet See Rx Instructions .ROUTE .COMPLEX Qty: 30 3RF Dose Instruction: TAKE ONE TABLET BY MOUTH DAILY Rx Instructions: TAKE ONE TABLET BY MOUTH DAILY donepezil 10 mg tablet See Rx Instructions .ROUTE .COMPLEX Qty: 90 1RF Dose Instruction: TAKE ONE TABLET BY MOUTH DAILY Rx Instructions: TAKE ONE TABLET BY MOUTH DAILY Follow-up/Referrals: Bryan Valiente MD [Primary Care Provider] - Time of Disposition: 06:36
[2024-10-10 06:34] VITALS: BP 136/79; PULSE 73; RESP 21; O2SAT 98
== END 2024-10-10 06:45 | disposition home or self-care (01) ==
PROVIDERS: Emergency Provider Student in an Organized Health Care Education/Training Program; PCP Family Medicine
DX: S81.812A Laceration without foreign body, left lower leg, initial encounter (principal); W22.8XXA Striking against or struck by other objects, initial encounter; F03.90 Unspecified dementia, unspecified severity, without behavioral disturbance, psychotic disturbance, mood disturbance, and anxiety; F41.8 Other specified anxiety disorders; Z85.3 Personal history of malignant neoplasm of breast; E11.9 Type 2 diabetes mellitus without complications; Z79.4 Long term (current) use of insulin; I48.0 Paroxysmal atrial fibrillation; Z79.01 Long term (current) use of anticoagulants; E78.5 Hyperlipidemia, unspecified; I50.30 Unspecified diastolic (congestive) heart failure; Z86.718 Personal history of other venous thrombosis and embolism; M81.0 Age-related osteoporosis without current pathological fracture; N18.30 Chronic kidney disease, stage 3 unspecified; E03.9 Hypothyroidism, unspecified; M06.9 Rheumatoid arthritis, unspecified; G47.33 Obstructive sleep apnea (adult) (pediatric); Z99.89 Dependence on other enabling machines and devices; Z86.711 Personal history of pulmonary embolism; Z99.3 Dependence on wheelchair
CPT/HCPCS: 12002; 99282